=== PATIENT | male | born 1950 | race Caucasian/White ===

== ENCOUNTER → 2020-01-12 | Outpatient (CLI) | payer MEDICARE, OTHER, SELFPAY ==
--- NOTE | 2020-01-12 08:01 | RAD_ITS ---
STUDY: X-RAY - ESOPHAGUS (BARIUM SWALLOW) WITH FLUOROSCOPY REASON FOR EXAM: Male, 69 years old. Dysphagia w/carbonated, meat, cheese, bread -- upper sternum area -- recently acute -- heartburn and fatty liver. No history of cancer. TECHNIQUE: 25 view(s) of the esophagus were obtained following swallowing of barium. FLUOROSCOPY TIME (if supplied): (0:40) minutes/seconds COMPARISON: None. FINDINGS: There is no demonstrated esophageal foreign body. There is no demonstrated stricture or mucosal abnormality. Normal gastroesophageal junction, without a demonstrated hiatal hernia. The patient ingested a 12 mm tablet of barium without any difficulty. Incidental note is made of a 4.6 mm diverticulum in the third portion of the duodenum. There is atherosclerotic tortuosity of the aortic arch and descending thoracic aorta. Normal visualized pulmonary parenchyma. There are degenerative changes of the visualized thoracic spine. RAD/Esophagus Single Contrast IMPRESSION: Normal plain film x-ray examination (barium swallow) of the esophagus. Incidental note is made of a 4.6 mm diverticulum in the third portion of the duodenum. Electronically Signed: Cooper Clancy, at 9:01 EDT , Service support ,
== END | disposition home or self-care (01) ==
LOC: RAD 07:58
PROVIDERS: PCP Family Medicine; Referring Provider Family Medicine; Visit Provider Family Medicine
DX: R13.10 Dysphagia, unspecified (principal)
CPT/HCPCS: 74220

== ENCOUNTER → 2020-07-25 07:45 | Outpatient (CLI) | payer MEDICARE, OTHER, SELFPAY ==
--- NOTE | 2020-07-25 08:00 | CT_ITS ---
STUDY: LOW DOSE CT LUNG CANCER SCREENING REASON FOR EXAM: Male, 69 years old. SMOKING SINCE 1968 1 PACK A DAY. WEIGHT LOSS AND LOSS OF APPETITE AND FATIGUE RADIATION DOSAGE (If Supplied By Facility): CTDIvol = ( 3.02 ) mGy, DLP = ( 110.61 ) mGycm TECHNIQUE: No contrast was administered. Low dose technique was utilized (average mAS-38 and kVp 120). 1.25 mm axial source images with a slice interval of 1.25-mm were reconstructed in lung windows. 2.5 mm axial source images with a slice interval of 2.5-mm were reconstructed in lung windows. 5.0 mm axial source images with a slice interval of 5.0-mm were reconstructed in soft tissue windows. Nodule measured using lung windows on PACS and/or independent workstation with automated measurement of minimum and maximum diameter. Nodule measurement reported as average diameter rounded to the nearest whole number. Growth is defined as an increase ins size of greater than 1.5 mm. COMPARISON: None. NODULES: No suspicious nodules are seen. Emphysema: Hyperinflation. Mild emphysematous changes. Small bulla are seen in the upper lobes. Mild degree of scarring at the lung bases as well as in the lingular segment of the left upper lobe. Endobronchial lesion: Aorta: Atherosclerotic plaque of the aortic arch and descending thoracic aorta. Coronary arteries: Coronary artery calcification. Mediastinal nodes: Benign appearing mediastinal lymph nodes. Other chest and abdominal findings: Degenerative changes of the lumbar spine. CT/Low Dose CT Lung Screening IMPRESSION: Lung-RADS category 2 - Continue annual screening with LDCT in 12 months. IMPORTANT NOTES FOR USE: ACR Lung-RADS Version 1.0 Assessment Categories Release Date: February 19, 2014 Category: Coded 0-4 bases on nodule(s) with highest degree of suspicion. Negative screen is defined as categories 1 and 2; a positive screen is defined as categories 3 and 4. Category 3 and 4A nodules that are unchanged on interval CT should be coded as category 2, and individuals returned to screening in 12 months. Category 4X: Category 3 or 4 nodules with additional imaging findings that increase the suspicion of lung cancer, such as spiculation, GGN that doubles in size in 1 year, enlarged lymph notes, etc. Category Modifiers: S (significant finding unrelated to lung cancer) and C (prior history of treated lung cancer) may be added to the 0-4 Lung-RADS Electronically Signed: Cooper Clancy, at 8:33 EDT , Service support ,
== END ==
PROVIDERS: PCP Family Medicine; Referring Provider Nurse Practitioner Primary Care; Visit Provider Nurse Practitioner Primary Care
DX: F17.210 Nicotine dependence, cigarettes, uncomplicated (principal)
CPT/HCPCS: G0297

== ENCOUNTER 2020-09-04 08:34 | Inpatient (IN) | payer MEDICARE, OTHER, SELFPAY ==
[2020-09-04 08:35] VITALS: BP 154/91; PULSE 115; RESP 17; TEMP 36.2; O2SAT 95; BMI 25.4
[2020-09-04 08:44] VITALS: BP 154/91; PULSE 115; RESP 17; TEMP 36.2; O2SAT 95
[2020-09-04] MEDS: Ondansetron 4 MG/2 ML Vial IV ×2 (08:56→14:20)
[2020-09-04] MEDS: Ketorolac 15 MG/ML Vial IV ×3 (08:57→21:37)
[2020-09-04] MEDS: HYDROmorphone 1 MG/ML Syringe IV ×3 (08:57→19:34)
[2020-09-04] MEDS: 0.9% Normal Saline 1,000 ML 150 ML IV (09:00)
[2020-09-04 09:15] LABS: Mucous, Urine 0 SEEN /hpf (<or=2+); Squamous Epithelial Cells - UA 0 SEEN /hpf (0-5); White Blood Cells 0 SEEN /hpf (0-5)
[2020-09-04 09:24] LABS: Color, Urine Yellow (Yellow); Glucose, Dipstick 1000 mg/dl (Normal); Ketone-Dipstick Negative (Negative); Leukocyte Esterase-Dipstick Negative /ul (Negative); Nitrite-Dipstick Negative (Negative); Occult Blood-Urine 250 /ul (Negative); Protein-Dipstick 15 mg/dl (Negative); Urine Bilirubin Dipstick Negative (Negative); Urine Clarity Sl. Cloudy (Clear); Urine Urobilinogen Normal (Normal)
--- NOTE | 2020-09-04 09:27 | NURSING ---
FAXED RELEASE OF INFO FOR FILIBERTO PIMENTEL ON CHART FROM THIS [facility]
[2020-09-04 09:33] LABS: Absolute Lymphocyte Count 3.33 X10^3/uL (0.83-4.51); Absolute Neutrophil Count 6.9 X10^3/uL (2.0-7.7); Basophil# 0.08 X10^3/uL; Basophil% 0.7 % (0-1); Eosinophil# 0.33 X10^3/uL; Eosinophils% 2.9 % (0-5); Hematocrit 46.1 % (40-54); Hemoglobin 15.1 g/dL (13.0-16.5); Lymphocyte # 3.33 X10^3/ul (4.0); Lymphocyte % 29.2 % (19-41); Mean Corp Hgb Conc 32.8 g/dL (32-36); Mean Corpuscular Hgb 30.8 pg (27.0-32.0); Mean Corpuscular Volume 94.1 fL (80-94); Monocyte# 0.78 X10^3/uL; Monocyte% 6.8 % (0-10); NRBC Flagged by Analyzer 0 % (0-5); Neutrophil # 6.86 X10^3/uL (2.7-7.7); Neutrophil % 60.1 % (47-70); Platelet Count 200 K/mm3 (150-450); RBC Distribution Width CV 13.8 % (11.6-14.6); RBC Distribution Width SD 47.5 fl (35.1-43.9); White Blood Count 11.4 K/mm3 (4.4-11.0)
[2020-09-04 09:33] LABS: Bacteria 1+ /hpf (None Seen); Red Blood Cells-Urine 25-50 SEEN /hpf (0-5)
[2020-09-04 09:35] LABS: Anion Gap 6 (5-15); BUN 19 mg/dL (7-18); BUN/Creat Ratio 14.6 RATIO (10-20); Calcium,Total 8.4 mg/dL (8.5-10.1); Chloride 108 mmol/L (98-107); EST Glomerular Filtration Rate 58 mL/min (>60); Est Glom Filt Rate - Afr Amer 70 mL/min (>60); Estimated Creatinine Clearance 59.69 ml/min; Glucose 190 mg/dL (74-106); Potassium 4.4 mmol/L (3.5-5.1); Sodium Level 139 mmol/L (136-145)
--- NOTE | 2020-09-04 09:35 | ED.DCSUM_ITS ---
- ER Visit Summary Date of Service: 09/04/20 Chief Complaint: [Left flank pain] History of Present Illness: The patient is a 69 M [presents to the emergency department complaint of pain in his left flank that started initially around 11:30 PM last evening. Patient states that he went to [facility] around 1 AM and was diagnosed with a kidney stone on the left side that was near the bladder and it was felt by the ED physician that patient would pass the stone. Patient was discharged home however he started to experience waxing and waning of severe pain. Patient is in pain management and chronically takes morphine so he took some morphine but that did not relieve his pain. Patient's had nausea and some dry heaves. He denies any fever. Patient states that he could not void urine this morning and I concern him as well. Patient has history of diabetes, arthritis, and history of kidney stones. Patient rates his pain currently as a 7-8 out of 10.] Physical Examination: [HEENT-PERRLA, EOMI. Cranial nerves II through XII grossly intact. TMs clear. Mucous membranes moist. No adenopathy. Cardiovascular-regular rate and rhythm without murmur or ectopy Lungs-clear to auscultation, chest wall stable without crepitus or subcu emphysema Abdomen-normoactive bowel sounds, soft. Patient has tenderness palpation over left lower quadrant some mild CVA tenderness on the left. No rebound, rigidity, or peritoneal signs. Extremities-intact ?4, normal range of motion, normal pulses, atraumatic] Test Results: [Urinalysis obtained showed red cells without signs of infection.] Emergency Department Course and Treatment: [IV line established. Patient was given Toradol, Zofran, and Dilaudid IV.] Treatment Plan: [Admit for pain control] Disposition: [Admit] Impression: [Kidney stone with colic Intractable pain] This note was generated with Dr. TATTOFF dictation software. It may contain incorrect words, spelling, and punctuation that were not noted in review of the chart prior to signing ED Disposition - Plan for ED Patient: Referrals: Jennifer Lobo DO [Primary Care Provider] -
--- NOTE | 2020-09-04 10:15 | NURSING ---
DR BRADY FOR DR KAPLAN
--- NOTE | 2020-09-04 10:16 | HP.PCM_ITS ---
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 Diabetes mellitus complication status: with other specified complication Qualified Code(s): E11.69 - Type 2 diabetes mellitus with other specified complication (4) Tobacco use Status: Chronic (5) CKD (chronic kidney disease), stage III Status: Chronic Qualifiers: Chronic kidney disease stage 3 subtype: unspecified whether 3a or 3b Qualified Code(s): N18.30 - Chronic kidney disease, stage 3 unspecified History of Present Illness Date of Admission: 09/04/20 Chief Complaint: L intractable flank pain The patient is a 69 y/o M w/ PMHx: CKD stage III, Prior Hx Nephrolithiasis, Diabetes mellitus type II, Chronic back pain on chronic pain regimen with routine injections per pain management who presents to the [facility] ED on 09/04/20 with history of onset significant left-sided flank pain, not improving prompting outside hospital ED evaluation at approximately 1 AM with unremarkable labs and CT noting a left-sided UPJ 4 mm stone at [facility] with discharge to home with self administration of his chronic pain regimen without significant improvement prompting return for evaluation at [facility]. Patient notes it has been a many years since he had similar presentation and at that time did require intervention x2. Pain was initially at onset 10 out of 10 with associated fatigue, nausea, malaise with no emesis which she noted started when he had been up to use the restroom and was urinating. He notes pain currently improved following Dilaudid, 2-3 out of 10 but primarily with palpation of the CVA region. Work-up in the ED included T 97.2, heart rate 115, BP 154/91, respiratory rate 17, 95% on room air, CBC with WC 11.4, hemoglobin 15.1, platelet 200 without marked shift, BMP with chloride 108, BUN/creatinine 19/1.30, glucose 190, urinalysis with specific gravity 1.020, protein fifteen, glucose 1000, occult blood 250, RBC 25-50, no urine WBCs, 1+ urine bacteria. In the ED patient ministered Zofran, Toradol, Dilaudid, normal saline. Past Medical History Past Medical History (Chronic Problems): Chronic Problems Chronic pain syndrome (Chronic) CKD (chronic kidney disease), stage III (Chronic) Diabetes mellitus (Chronic) Tobacco use (Chronic) Allergies acetaminophen [From Vicodin] Allergy (Verified 09/04/20 08:35) Rash hydrocodone [From Vicodin] Allergy (Verified 09/04/20 08:35) Rash celecoxib [From Celebrex] Adverse Reaction (Verified 09/04/20 08:35) Unknown Home Medications: Ambulatory Orders Medication Instructions Recorded Alfuzosin HCl [Alfuzosin HCl ER] 10 mg PO DAILY 08/05/17 Gabapentin [Neurontin] 300 mg PO BIDCM 08/05/17 Glimepiride [Amaryl] 4 mg PO DAILY 08/05/17 Meloxicam [Mobic] 15 mg PO DAILY 08/05/17 Ergocalciferol [Vitamin D] 50,000 unit PO .Wednesday09/04/20 Fish Oil/Dha/Epa [Fish Oil 1,200 1 cap PO DAILY 09/04/20 mg Fish Oil] Morphine Sulfate [Morphine Sulfate 15 mg PO TID PRN PRN 09/04/20 ER] hydrOXYzine pamoate capsule 25 - 50 mg PO QHS PRN 09/04/20 [Vistaril pamoate capsule] Surgical History: - - Right rotator cuff surgery, intervention for kidney stones x2, tonsillectomy. Psychiatric History: No pertinent psych hx Lives: Spouse/ Significant Other Smoking Status: Current every day smoker - Patient with ongoing 1 pack/day cigarette tobacco usage starting March 1989 although notes he is currently attempting to quit and [facility]zeng[facility]. Tobacco Use: Cigarettes Alcohol: None Drugs: None - *Family History Maternal History Items: Dementia, - - Patient notes a maternal family history of Alzheimer's dementia. Paternal History Items: - - Patient notes that his father left when he was 4 years old therefore is unsure of any of his medical history. Review of Systems Constitutional: Reports: Anorexia, Malaise, Weakness, Fatigue. Denies: Chills, Fever, Weight Change HEENT: Denies: Head Aches, Sinus Congestion, Sinus Drainage Cardiovascular: Reports: - - Left lateral CVA tenderness.. Denies: Chest Pain, Palpitations Respiratory: Denies: Cough, Shortness of breath at rest, Sputum production Gastrointestinal: Reports: Abdominal Pain, Nausea. Denies: Vomiting Genitourinary: Reports: - - Lateral CVA tenderness, onset following urination in AM.. Denies: Dysuria Musculoskeletal: Reports: Back Pain, Joint Pain. Denies: Joint Tenderness Skin: Denies: Rash, Wounds Neurological: Denies: Numbness, Tingling, Focal weakness Psychiatric: Denies: Anxiety, Depression, Homicidal Ideations, Suicidal Ideations Hematologic/ Lymphatic: Denies: Easy Bruising, Easy Bleeding VTE Information - Inpt Only VTE Present on Admission: No VTE Mechan Device Prophylaxis: SCD's VTE Pharm Prophylaxis ordered?: No Reason prophylaxis not ordered:: Medical Contraindication Patient Problems: Active and Suspected Problems Nephrolithiasis (Acute) Subjective: Patient seated upright in the ED bed, initially laying down, notes pain significantly improved with recent Dilaudid administration. Objective: Physical Examination: General: awake, alert, oriented x 3 and cooperative, seated upright in the ED bed, currently notes pain is improved, was 10 out of 10, currently 2 out of 10. Skin: normal color, turgor, no icterus, cyanosis. HEENT: AT/NC, EOMI, PERRLA, dry MM, no carotid bruits or JVD noted. Lungs: CTA bilaterally, moderate effort, moderate decrease BL bases, no rales, ronchi or wheezing. Heart: Tachycardic with regular rhythm; no gallop, rub audible. Abdomen: soft, no abdominal tenderness however significant left-sided CVA d iscomfort with palpation but improved he notes since initial presentation, ND, normal BS, no HSM. Extremities: no cyanosis, clubbing, or edema. Neurological: patient awake, alert, oriented x 3; cognitive function intact; pupils equally reactive to light and accomodation; cranial nerves II-XII grossly normal, moving all 4 extremities, no focal deficits, strength moderately global decrease secondary to acute presentation. Psychiatric: affect appears fatigued, notes more comfortable currently, no acute evidence of depressive or anxiety feelings. - Physical Exam Vitals/I&O's: Vital Signs Temp Pulse Resp BP Pulse Ox 97.2 F L 115 H 17 154/91 H 95 09/04/20 08:44 09/04/20 08:44 09/04/20 08:44 09/04/20 08:44 09/04/20 08:44 Oxygen Delivery Method Room Air Weight: 188 lb 0.869 oz Body Mass Index (BMI) 25.4 Laboratory Results 09/04/20 08:45: WBC 11.4 H, RBC 4.90, Hgb 15.1, Hct 46.1, MCV 94.1 H, MCH 30.8, MCHC 32.8, RDW Std Deviation 47.5 H, RDW Coeff of Dane 13.8, Plt Count 200, MPV 10.0, Immature Gran % (Auto) 0.300, Neut % (Auto) 60.1, Lymph % (Auto) 29.2, [place] % (Auto) 6.8, Eos % (Auto) 2.9, Baso % (Auto) 0.7, Absolute Neuts (auto) 6.9, Absolute Lymphs (auto) 3.33, Nucleated RBC % 0 09/04/20 08:45: Sodium 139, Potassium 4.4, Chloride 108 H, Carbon Dioxide 25.0, Anion Gap 6, BUN 19 H, Creatinine 1.30, Estim Creat Clear Calc 59.69, Est GFR (MDRD) Af Amer 70, Est GFR (MDRD) Non-Af 58 L, BUN/Creatinine Ratio 14.6, Glucose 190 H, Calcium 8.4 L 09/04/20 09:09: Urine Color Yellow, Urine Clarity Sl. Cloudy, Urine pH 5.0, Ur Specific [place] 1.020, Urine Protein 15 H, Urine Glucose (UA) 1000 H, Urine Ketones Negative, Urine Occult Blood 250 H, Urine Nitrite Negative, Urine Bilirubin Negative, Urine Urobilinogen Normal, Ur Leukocyte Esterase Negative, Urine RBC 25-50 SEEN, Urine WBC 0 SEEN, Ur Squamous Epith Cells 0 SEEN, Urine Bacteria 1+, Urine Mucus 0 SEEN Current Medications Sodium Chloride () 1,000 mls @ 150 mls/hr IV .[id number] [facility] Last Admin: 09/04/20 09:00 Dose: 150 mls/hr Documented by: Assessment/Plan All Active Problems Nephrolithiasis (Acute) The patient is a 69 y/o M w/ PMHx: CKD stage III, Prior Hx Nephrolithiasis, Diabetes mellitus type II, Chronic back pain on chronic pain regimen with routine injections per pain management who presents to the [facility] ED on 09/04/20 with history of onset significant left-sided flank pain, not improving prompting outside hospital ED evaluation at approximately 1 AM with unremarkable labs and CT noting a left-sided UPJ 4 mm stone at [facility] with discharge to home with self administration of his chronic pain regimen without significant improvement. 1. Acute Flank Pain, secondary to Acute Nephrolithiasis: Urinalysis not marked appearing aside hematuria but no obvious UTI, CBC with no market WC elevation or left shift and no marked anemia, outside hospital CT with left-sided 4 mm UPJ. Given pain intractable, will admit to [facility], maintain on aggressive hydration, continue to strain urine, maintain on IV scheduled Toradol, increase patient home gabapentin, continue patient chronic pain regimen with oral and IV breakthrough narcotic therapy, PRN anti-emetics, monitor I&Os. Given size of calculus suspect will likely pass, thus will hold on any urology involvement. If not clinically improving may consult urology. 2. Diabetes mellitus type II: Hold oral home regimen, allow ADA diet, accu checks w/ ISS. 3. Chronic Kidney Disease Stage III: Admission BUN/Cr 19/1.30, baseline renal function suspect similar, most recently noted creatinine 1.0, repeat BMP in AM. 4. Chronic pain syndrome: Patient with chronic back pain with chronic narcotic therapy and injections per pain management, complicates presentation, will continue patient morphine IR although schedule this. We will have overlapping oral and IV regimen. As noted previously increasing gabapentin regimen given acute presentation #1. 5. Tobacco Abuse: Encouraged cessation, inpatient consultation per RT, NR if desired. 6. DVT prophylaxis: SCDs, hold any chemoprophylaxis temporarily given hematuria and acute presentation, if does not pass me consider urology intervention. OBSV E&M: [id number] Initial observation care L3
--- NOTE | 2020-09-04 10:27 | NURSING ---
MED SURG OBS [place] WITH HEATH BRADY
[2020-09-04 10:49] VITALS: BP 129/77; PULSE 71; RESP 15; TEMP 36.4; O2SAT 98
[2020-09-04 11:53] VITALS: BMI 25.6
[2020-09-04 11:54] VITALS: BP 152/92; PULSE 91; RESP 18; TEMP 36.4; O2SAT 99
[2020-09-04] MEDS: 0.9% Normal Saline 1,000 ML 125 ML IV ×2 (12:28→19:34)
[2020-09-04 13:25] LABS: Bedside Glucose 129 mg/dL (70-110)
[2020-09-04] MEDS: morphine SR 15 MG Tablet PO ×2 (14:10→21:36)
[2020-09-04] MEDS: 0.9% Saline Lock 10 ML Syringe IV ×2 (14:14→14:20)
[2020-09-04] MEDS: Gabapentin 300 MG Capsule PO ×2 (15:38→21:37)
[2020-09-04 17:15] LABS: Bedside Glucose 208 mg/dL (70-110)
[2020-09-04] MEDS: Insulin Lispro 100 UNIT/ML INSULN.PEN SC (17:45)
[2020-09-04 17:54] VITALS: BP 138/72; PULSE 78; RESP 18; TEMP 36.6; O2SAT 98
[2020-09-04] MEDS: Famotidine 20 MG Tablet PO (21:37)
[2020-09-04 21:42] VITALS: BP 132/64; PULSE 80; RESP 16; TEMP 36.6; O2SAT 97
[2020-09-04 22:01] LABS: Bedside Glucose 141 mg/dL (70-110)
[2020-09-05] MEDS: HYDROmorphone 1 MG/ML Syringe IV ×5 (03:44→22:58)
[2020-09-05] MEDS: 0.9% Normal Saline 1,000 ML 125 ML IV ×3 (03:44→20:22)
[2020-09-05 03:45] VITALS: BP 140/73; PULSE 76; RESP 16; TEMP 36.8; O2SAT 95
[2020-09-05 04:16] LABS: Bedside Glucose 99 mg/dL (70-110)
[2020-09-05] MEDS: Ketorolac 15 MG/ML Vial IV ×3 (05:29→22:39)
[2020-09-05] MEDS: Gabapentin 300 MG Capsule PO ×3 (05:29→22:39)
[2020-09-05] MEDS: morphine SR 15 MG Tablet PO ×3 (05:29→22:39)
[2020-09-05] MEDS: Ondansetron 4 MG/2 ML Vial IV (05:33)
[2020-09-05 06:03] LABS: Absolute Lymphocyte Count 3.51 X10^3/uL (0.83-4.51); Absolute Neutrophil Count 4.8 X10^3/uL (2.0-7.7); Basophil# 0.07 X10^3/uL; Basophil% 0.7 % (0-1); Eosinophil# 0.37 X10^3/uL; Eosinophils% 3.9 % (0-5); Hematocrit 42.3 % (40-54); Hemoglobin 13.7 g/dL (13.0-16.5); Lymphocyte # 3.51 X10^3/ul (4.0); Lymphocyte % 36.7 % (19-41); Mean Corp Hgb Conc 32.4 g/dL (32-36); Mean Corpuscular Hgb 30.8 pg (27.0-32.0); Mean Corpuscular Volume 95.1 fL (80-94); Mean Platelet Vol. 9.9 fl (6.2-12.0); Monocyte# 0.78 X10^3/uL; Monocyte% 8.2 % (0-10); NRBC Flagged by Analyzer 0 % (0-5); Neutrophil % 50.2 % (47-70); Platelet Count 171 K/mm3 (150-450); RBC Distribution Width CV 13.8 % (11.6-14.6); RBC Distribution Width SD 48.6 fl (35.1-43.9); Red Blood Count 4.45 M/mm3 (4.6-6.2); White Blood Count 9.6 K/mm3 (4.4-11.0)
[2020-09-05 06:37] LABS: ALB/GLOB Ratio 0.8 RATIO (0.9-2.4); AST(SGOT) 12 U/L (15-37); Alanine Aminotransfer ALT/SGPT 14 U/L (16-61); Alkaline Phosphatase 74 U/L (45-117); Anion Gap 3 (5-15); BUN 15 mg/dL (7-18); BUN/Creat Ratio 14.3 RATIO (10-20); Calcium,Total 8.3 mg/dL (8.5-10.1); Chloride 110 mmol/L (98-107); Creatinine, Serum 1.05 mg/dL (0.70-1.30); EST Glomerular Filtration Rate 74 mL/min (>60); Est Glom Filt Rate - Afr Amer 90 mL/min (>60); Globulin 3.6 g/dL (2.2-4.2); Glucose 128 mg/dL (74-106); Potassium 4.5 mmol/L (3.5-5.1); Protein, Total 6.6 g/dL (6.4-8.2); Sodium Level 140 mmol/L (136-145)
[2020-09-05 06:40] LABS: Bedside Glucose 113 mg/dL (70-110)
--- NOTE | 2020-09-05 07:25 | PN_ITS ---
Patient Problems: Active and Suspected Problems Nephrolithiasis (Acute) Left renal stone (Acute) Subjective: Patient with continued discomfort overnight, improved with pain regimen, however patient noting he is not passed his stone with urine straining and notes that the pain is more distal than it had been prior. Patient continues without any fever or specific dysuria symptoms. Discussed plan of care with patient and given ongoing symptoms, still not passed stone amenable to urology involvement. Urology pending evaluation although patient given repeat film per urology discretion with findings suggestive of ongoing 4.4 mm left mid ureteral calculus with potential OR 09/06/2020. Patient denies fevers, chills, nausea, emesis, chest pain or dyspnea. Objective: Physical Examination: General: awake, alert, oriented x 3 and cooperative, seated upright in the surgical bed, currently pain controlled however notes that had been occasionally worse overnight. Skin: normal color, turgor, no icterus, cyanosis. HEENT: AT/NC, EOMI, PERRLA, MMM. Lungs: CTA bilaterally, moderate effort, moderate decrease BL bases, no rales, ronchi or wheezing. Heart: Proved, regular rate and regular rhythm; no gallop, rub audible. Abdomen: soft, no abdominal tenderness however significant left-sided CVA discomfort with palpation more distal than day prior, nondistended, normal bowel sounds. Extremities: no cyanosis, clubbing, or edema. Neurological: patient awake, alert, oriented x 3; cognitive function intact; pupils equally reactive to light and accomodation; cranial nerves II-XII grossly normal, moving all 4 extremities, no focal deficits, strength being, moderately global decrease secondary to acute presentation. Psychiatric: affect appears less fatigued, comfortable currently, no acute evidence of depressive or anxiety feelings. Vitals/I&O's: Vital Signs Temp Pulse Resp BP Pulse Ox 98.3 F 76 16 140/73 H 95 09/05/20 03:45 09/05/20 03:45 09/05/20 03:45 09/05/20 03:45 09/05/20 03:45 Oxygen Delivery Method Room Air Weight: 188 lb 11.451 oz Body Mass Index (BMI) 25.6 Intake and Output for Last 24 Hours 09/03/20 09/04/20 09/05/20 23:59 23:59 23:59 Intake Total 1706.25 / 1706.25 1000 / 1000 Output Total 1350 / 1350 350 / 350 Balance 356.25 / 356.25 650 / 650 Laboratory Results 09/04/20 08:45: WBC 11.4 H, RBC 4.90, Hgb 15.1, Hct 46.1, MCV 94.1 H, MCH 30.8, MCHC 32.8, RDW Std Deviation 47.5 H, RDW Coeff of Dane 13.8, Plt Count 200, MPV 10.0, Immature Gran % (Auto) 0.300, Neut % (Auto) 60.1, Lymph % (Auto) 29.2, [place] % (Auto) 6.8, Eos % (Auto) 2.9, Baso % (Auto) 0.7, Absolute Neuts (auto) 6.9, Absolute Lymphs (auto) 3.33, Nucleated RBC % 0 09/04/20 08:45: Sodium 139, Potassium 4.4, Chloride 108 H, Carbon Dioxide 25.0, Anion Gap 6, BUN 19 H, Creatinine 1.30, Estim Creat Clear Calc 59.69, Est GFR (MDRD) Af Amer 70, Est GFR (MDRD) Non-Af 58 L, BUN/Creatinine Ratio 14.6, Glucose 190 H, Calcium 8.4 L 09/04/20 09:09: Urine Color Yellow, Urine Clarity Sl. Cloudy, Urine pH 5.0, Ur Specific [place] 1.020, Urine Protein 15 H, Urine Glucose (UA) 1000 H, Urine Ketones Negative, Urine Occult Blood 250 H, Urine Nitrite Negative, Urine Bilirubin Negative, Urine Urobilinogen Normal, Ur Leukocyte Esterase Negative, Urine RBC 25-50 SEEN, Urine WBC 0 SEEN, Ur Squamous Epith Cells 0 SEEN, Urine Bacteria 1+, Urine Mucus 0 SEEN 09/04/20 13:17: POC Glucose 129 H 09/04/20 17:06: POC Glucose 208 H 09/04/20 21:35: POC Glucose 141 H 09/05/20 03:54: POC Glucose 99 09/05/20 05:32: WBC 9.6, RBC 4.45 L, Hgb 13.7, Hct 42.3, MCV 95.1 H, MCH 30.8, MCHC 32.4, RDW Std Deviation 48.6 H, RDW Coeff of Dane 13.8, Plt Count 171, MPV 9.9, Immature Gran % (Auto) 0.300, Neut % (Auto) 50.2, Lymph % (Auto) 36.7, [place] % (Auto) 8.2, Eos % (Auto) 3.9, Baso % (Auto) 0.7, Absolute Neuts (auto) 4.8, Absolute Lymphs (auto) 3.51, Nucleated RBC % 0 09/05/20 05:32: Sodium 140, Potassium 4.5, Chloride 110 H, Carbon Dioxide 27.0, Anion Gap 3 L, BUN 15, Creatinine 1.05, Estim Creat Clear Calc 73.90, Est GFR (MDRD) Af Amer 90, Est GFR (MDRD) Non-Af 74, BUN/Creatinine Ratio 14.3, Glucose 128 H, Calcium 8.3 L, Total Bilirubin 0.50, AST 12 L, ALT 14 L, Alkaline Phosphatase 74, Total Protein 6.6, Albumin 3.0 L, Globulin 3.6, Albumin/Globulin Ratio 0.8 L 09/05/20 06:33: POC Glucose 113 H Current Medications Acetaminophen (Acetaminophen 325 Mg Tablet) 650 mg PO Q6H PRN PRN PRN Reason: Pain Score 1-10/Temp > 100.7 F Al Hydroxide/Mg Hydroxide (Mag Hydrox/Al Hydrox/Simeth 30 Ml Udc) 30 ml PO Q6H PRN PRN PRN Reason: Gastric Burning Albuterol Sulfate (Albuterol 2.5 Mg/3 Ml Vial.Neb.) 2.5 mg INHALATION Q2H PRN PRN PRN Reason: Dyspnea, wheezing Famotidine (Famotidine 20 Mg Tablet) 20 mg PO BID [facility] Last Admin: 09/04/20 21:37 Dose: 20 mg Documented by: Gabapentin (Gabapentin 300 Mg Capsule) 300 mg PO TID [facility] Last Admin: 09/05/20 05:29 Dose: 300 mg Documented by: Guaifenesin (Guaifenesin 10 Ml Udc (200mg/10ml)) 20 ml PO Q4H PRN PRN PRN Reason: COUGH Hydralazine HCl (Hydralazine 20 Mg/Ml Vial) 10 mg IV Q4H PRN PRN PRN Reason: SBP > 160 Hydromorphone HCl (Hydromorphone 1 Mg/Ml Syringe) 1 mg IV Q4H PRN PRN PRN Reason: Pain Score 6-10 Last Admin: 09/05/20 03:44 Dose: 1 mg Documented by: Sodium Chloride () 1,000 mls @ 125 mls/hr IV .Q8H [place] Last Admin: 09/05/20 03:44 Dose: 125 mls/hr Documented by: Sodium Chloride () 250 mls @ 15 mls/hr IV .[id number] PRN PRN Reason: Saline Flush Sodium Chloride () 250 mls @ 15 mls/hr IV .[id number] PRN PRN Reason: Additional IVPB Infusion Influenza Virus Vaccine Quadrival (Influenza Vaccine (6mos+)/Pf 0.5 Ml Syringe) 0.5 ml IM .ONCE ONE Stop: 09/05/20 10:01 Insulin Human Lispro (Insulin Lispro 100 Unit/Ml Insuln.Pen) 0 unit [facility]; Protocol Last Admin: 09/05/20 06:37 Dose: Not Given Documented by: Ketorolac Tromethamine (Ketorolac 15 Mg/Ml Vial) 15 mg IV Q8 [facility] Stop: 09/05/20 22:01 Last Admin: 09/05/20 05:29 Dose: 15 mg Documented by: Magnesium Hydroxide (Magnesium Hydroxide 30 Ml Udc) 30 ml PO DAILY PRN PRN PRN Reason: Constipation Melatonin (Melatonin 3 Mg Tablet) 3 mg PO QHS PRN PRN PRN Reason: INSOMNIA Morphine Sulfate (Morphine Sr 15 Mg Tablet) 15 mg PO TID [facility] Last Admin: 09/05/20 05:29 Dose: 15 mg Documented by: Ondansetron HCl (Ondansetron 4 Mg/2 Ml Vial) 4 mg IV Q8H PRN PRN PRN Reason: NAUSEA/VOMITING Last Admin: 09/05/20 05:33 Dose: 4 mg Documented by: Oxycodone HCl (Oxycodone 5 Mg Tablet) 10 mg PO Q4H PRN PRN PRN Reason: Pain Score 4-5 Prochlorperazine Edisylate (Prochlorperazine 10 Mg/2 Ml Vial) 5 mg IV Q4H PRN PRN PRN Reason: Breakthrough nausea/vomiting Psyllium Hydrophilic Mucilloid (Psyllium 1 Packet) 1 packet PO DAILY PRN PRN PRN Reason: Constipation Senna/Docusate Sodium (Senna/Docusate Sodium 1 Tablet) 2 tablet PO BID PRN PRN PRN Reason: Constipation Sodium Chloride (0.9% Saline Lock 10 Ml Syringe) 10 - 40 ml IV UD PRN PRN Reason: SALINE FLUSH Last Admin: 09/04/20 14:20 Dose: 10 ml Documented by: Tamsulosin HCl (Tamsulosin Hcl 0.4 Mg Capsule) 0.4 mg PO DAILY@1730 [place] Throat Lozenges (Benzocaine/Menthol 1 Lozenge) 1 lozenge MUCOUS MEM Q2H PRN PRN PRN Reason: SORE THROAT STROKE Vital Signs/Narrative: Vital Signs Temp Pulse Resp BP Pulse Ox 09/05/20 03:45 98.3 F 76 16 140/73 H 95 Medical Necessity - Tobacco Use Smoking Status: Current every day smoker - Patient with ongoing 1 pack/day cigarette tobacco usage starting March 1989 although notes he is currently attempting to quit and uses lozenges from the [place]. Tobacco Use: Cigarettes Assessment/Plan All Active Problems Nephrolithiasis (Acute) Left renal stone (Acute) The patient is a 69 y/o M w/ PMHx: CKD stage III, Prior Hx Nephrolithiasis, Diabetes mellitus type II, Chronic back pain on chronic pain regimen with routine injections per pain management who presents to the [facility] ED on 09/04/20 with history of onset significant left-sided flank pain, not improving prompting outside hospital ED evaluation at approximately 1 AM with unremarkable labs and CT noting a left-sided UPJ 4 mm stone at [facility] with discharge to home with self administration of his chronic pain regimen without significant improvement. 1. Acute Flank Pain, secondary to Acute Nephrolithiasis: Urinalysis not marked appearing aside hematuria but no obvious UTI, CBC with no market WC elevation or left shift and no marked anemia, outside hospital CT with left-sided 4 mm UPJ. Given pain intractable, patient mated to MS, maintained on aggressive hydration, continued to strain urine without any evident stone, maintained on IV scheduled Toradol, increased patient home gabapentin, continue patient chronic pain regimen with oral and IV breakthrough narcotic therapy which will be increased given ongoing episodes of severe pain, urology consulted given no stone noted in urine yet and suspect not passed, KUB obtained with noted 4.4 mm left mid ureteral calculus, currently on OR schedule 09/06/2020 with urology, PRN anti- emetics, monitor I&Os. 2. Diabetes mellitus type II: Hold oral home regimen, allow ADA diet, accu checks w/ ISS. 3. Chronic Kidney Disease Stage III: Admission BUN/Cr 19/1.30, baseline renal function suspect similar, most recently noted creatinine 1.0, 09/05/2020 BUN/creatinine 15/1.05. 4. Chronic pain syndrome: Patient with chronic back pain with chronic narcotic therapy and injections per pain management, complicates presentation, will continue patient morphine IR although schedule this. Continue overlapping oral and IV regimen, 09/05/2020 planned increase of Dilaudid to every 3 given ongoing intermittent more severe pain episodes. As noted previously increasing gabapentin regimen given acute presentation #1. 5. Tobacco Abuse: Encouraged cessation, inpatient consultation per RT, NR if desired. 6. DVT prophylaxis: SCDs, hold any chemoprophylaxis temporarily given hematuria and acute presentation as well as planned possible OR 09/06/2020. Inpatient E&M: 91329 Subs Hosp L3
--- NOTE | 2020-09-05 08:21 | PCM.CONS.U ---
Problem List (1) Left renal stone Status: Acute Reason for Consult Date of Consultation: 09/05/20 Reason for Consultation: stone History of Present Illness: The patient is a 69 year old male who was in [facility] with stone, discharged from ER, admitted to [facility] with a small 4mm proximal stone on CT scan, has not passed it yet, I was consulted to see patient. Past Medical History Past Medical History (Chronic Problems): Chronic Problems Chronic pain syndrome (Chronic) CKD (chronic kidney disease), stage III (Chronic) Diabetes mellitus (Chronic) Tobacco use (Chronic) Allergies acetaminophen [From Vicodin] Allergy (Verified 09/04/20 08:35) Rash hydrocodone [From Vicodin] Allergy (Verified 09/04/20 08:35) Rash celecoxib [From Celebrex] Adverse Reaction (Verified 09/04/20 12:16) goofy Home Medications: Ambulatory Orders Medication Instructions Recorded Alfuzosin HCl [Alfuzosin HCl ER] 10 mg PO DAILY 08/05/17 Gabapentin [Neurontin] 300 mg PO BIDCM 08/05/17 Glimepiride [Amaryl] 4 mg PO DAILY 08/05/17 Meloxicam [Mobic] 15 mg PO DAILY 08/05/17 Ergocalciferol [Vitamin D] 50,000 unit PO .Wednesday09/04/20 Fish Oil/Dha/Epa [Fish Oil 1,200 1 cap PO DAILY 09/04/20 mg Fish Oil] Morphine Sulfate [Morphine Sulfate 15 mg PO TID PRN PRN 09/04/20 ER] hydrOXYzine pamoate capsule 25 - 50 mg PO QHS PRN 09/04/20 [Vistaril pamoate capsule] Surgical History: - - Right rotator cuff surgery, intervention for kidney stones x2, tonsillectomy. Psychiatric History: No pertinent psych hx Lives: Spouse/ Significant Other Smoking Status: Current every day smoker - Patient with ongoing 1 pack/day cigarette tobacco usage starting March 1989 although notes he is currently attempting to quit and [facility]. Tobacco Use: Cigarettes Alcohol: None Drugs: None - *Family History Maternal History Items: Dementia, - - Patient notes a maternal family history of Alzheimer's dementia. Paternal History Items: - - Patient notes that his father left when he was 4 years old therefore is unsure of any of his medical history. Review of Systems Constitutional: Denies: Chills, Fever, Weight Change HEENT: Denies: Head Aches, Sinus Congestion, Sinus Drainage Cardiovascular: Denies: Chest Pain, Palpitations Respiratory: Denies: Cough, Shortness of breath at rest, Sputum production Gastrointestinal: Denies: Abdominal Pain, Nausea, Vomiting Genitourinary: Denies: Dysuria Musculoskeletal: Denies: Joint Pain, Joint Tenderness Skin: Denies: Rash, Wounds Neurological: Denies: Numbness, Tingling, Focal weakness Psychiatric: Denies: Anxiety, Depression, Homicidal Ideations, Suicidal Ideations Hematologic/ Lymphatic: Denies: Easy Bruising, Easy Bleeding Physical Exam - Physical Exam Vital Signs Temp 98.3 F 09/05/20 03:45 Pulse 76 09/05/20 03:45 Resp 16 09/05/20 03:45 BP 140/73 H 09/05/20 03:45 Pulse Ox 95 09/05/20 03:45 Intake & Output 09/03/20 09/04/20 09/05/20 23:59 23:59 23:59 Intake Total 1706.25 / 1706.25 1000 / 1000 Output Total 1350 / 1350 350 / 350 Balance 356.25 / 356.25 650 / 650 Weight: 85.6 kg Intake: Oral 300 / 300 Intake, IV Amount 1406.25 / 1406.25 1000 / 1000 0.9% Normal Saline 1,000 ML @ 881.25 / 881.25 1000 / 1000 125 mls/hr IV .Q8H [place] Rx#: [id number] 0.9% Normal Saline 1,000 ML @ 525 / 525 150 mls/hr IV .[id number] [place] Rx#: [id number] Output: Urine 1350 / 1350 350 / 350 General: Alert, Oriented x3 HEENT: Atraumatic Oral: Moist Mucosa Neck: Supple Lungs: Normal air movement Cardiovascular: Regular rate Laboratory Tests Past 24 Hrs 09/04/20 09/04/20 09/04/20 08:45 08:45 09:09 WBC 11.4 H RBC 4.90 Hgb 15.1 Hct 46.1 MCV 94.1 H MCH 30.8 MCHC 32.8 RDW Std Deviation 47.5 H RDW Coeff of Dane 13.8 Plt Count 200 MPV 10.0 Immature Gran % (Auto) 0.300 Neut % (Auto) 60.1 Lymph % (Auto) 29.2 [place] % (Auto) 6.8 Eos % (Auto) 2.9 Baso % (Auto) 0.7 Absolute Neuts (auto) 6.9 Absolute Lymphs (auto) 3.33 Nucleated RBC % 0 Sodium 139 Potassium 4.4 Chloride 108 H Carbon Dioxide 25.0 Anion Gap 6 BUN 19 H Creatinine 1.30 Estim Creat Clear Calc 59.69 Est GFR (MDRD) Af Amer 70 Est GFR (MDRD) Non-Af 58 L BUN/Creatinine Ratio 14.6 Glucose 190 H Calcium 8.4 L Total Bilirubin AST ALT Alkaline Phosphatase Total Protein Albumin Globulin Albumin/Globulin Ratio Urine Color Yellow Urine Clarity Sl. Cloudy Urine pH 5.0 Ur Specific [place] 1.020 Urine Protein 15 H Urine Glucose (UA) 1000 H Urine Ketones Negative Urine Occult Blood 250 H Urine Nitrite Negative Urine Bilirubin Negative Urine Urobilinogen Normal Ur Leukocyte Esterase Negative Urine RBC 25-50 SEEN Urine WBC 0 SEEN Ur Squamous Epith Cells 0 SEEN Urine Bacteria 1+ Urine Mucus 0 SEEN 09/05/20 09/05/20 05:32 05:32 WBC 9.6 RBC 4.45 L Hgb 13.7 Hct 42.3 MCV 95.1 H MCH 30.8 MCHC 32.4 RDW Std Deviation 48.6 H RDW Coeff of Dane 13.8 Plt Count 171 MPV 9.9 Immature Gran % (Auto) 0.300 Neut % (Auto) 50.2 Lymph % (Auto) 36.7 [place] % (Auto) 8.2 Eos % (Auto) 3.9 Baso % (Auto) 0.7 Absolute Neuts (auto) 4.8 Absolute Lymphs (auto) 3.51 Nucleated RBC % 0 Sodium 140 Potassium 4.5 Chloride 110 H Carbon Dioxide 27.0 Anion Gap 3 L BUN 15 Creatinine 1.05 Estim Creat Clear Calc 73.90 Est GFR (MDRD) Af Amer 90 Est GFR (MDRD) Non-Af 74 BUN/Creatinine Ratio 14.3 Glucose 128 H Calcium 8.3 L Total Bilirubin 0.50 AST 12 L ALT 14 L Alkaline Phosphatase 74 Total Protein 6.6 Albumin 3.0 L Globulin 3.6 Albumin/Globulin Ratio 0.8 L Urine Color Urine Clarity Urine pH Ur Specific [place] Urine Protein Urine Glucose (UA) Urine Ketones Urine Occult Blood Urine Nitrite Urine Bilirubin Urine Urobilinogen Ur Leukocyte Esterase Urine RBC Urine WBC Ur Squamous Epith Cells Urine Bacteria Urine Mucus Assessment/Plan All Active Problems Nephrolithiasis (Acute) Left renal stone (Acute) 69 yo male with left kidney stone will do KUB today check location if good and has not passed it plan for ESWL possible stent tomorrow npo a midnight.
--- NOTE | 2020-09-05 08:45 | RAD_ITS ---
STUDY: X-RAY - ABDOMEN/PELVIS REASON FOR EXAM: Male, 69 years old. LEFT SIDED KIDNEY STONE, FOLLOW UP TECHNIQUE: Single AP view of the abdomen / pelvis. COMPARISON: None. FINDINGS: Normal visualized lung bases. There is an abundance of fecal material throughout the colon. There is a 4.4 mm rounded calcification overlying the transverse process of the L3 vertebra on the left side suggestive of a mid left ureteral calculus. Normal soft tissue structures. Normal visualized osseous structures. RAD/Abdomen Single View IMPRESSION: Findings suggestive of a 4.4 mm left midureteral calculus. Electronically Signed: Cooper Clancy, at 10:32 EST , Service support ,
[2020-09-05] MEDS: Famotidine 20 MG Tablet PO ×2 (08:59→22:39)
[2020-09-05 09:00] VITALS: BP 160/82; PULSE 84; RESP 18; TEMP 36.5; O2SAT 99
[2020-09-05] MEDS: oxyCODONE 5 MG Tablet 10 MG PO ×2 (10:24→20:27)
[2020-09-05 11:00] LABS: Bedside Glucose 144 mg/dL (70-110)
[2020-09-05] MEDS: proCHLORPERazine 10 MG/2 ML Vial 5 MG IV (14:20)
[2020-09-05 14:25] VITALS: BP 148/85; PULSE 78; RESP 18; TEMP 36.7; O2SAT 100
[2020-09-05 16:51] LABS: Bedside Glucose 116 mg/dL (70-110)
[2020-09-05] MEDS: Tamsulosin HCl 0.4 MG Capsule PO (17:51)
[2020-09-05 20:22] VITALS: BP 136/83; PULSE 98; RESP 18; TEMP 36.9; O2SAT 98
[2020-09-05 20:30] VITALS: BMI 25.5
[2020-09-05] MEDS: Insulin Lispro 100 UNIT/ML INSULN.PEN SC (22:44)
[2020-09-05 22:55] LABS: Bedside Glucose 150 mg/dL (70-110)
[2020-09-06] VITALS (10 sets, daily range): BP systolic 114–147; BP diastolic 66–83; PULSE 70–106; RESP 16–18; TEMP 36.2–37.1; O2SAT 92–98; BMI 25.5; BMI 25.6
[2020-09-06] MEDS: 0.9% Normal Saline 1,000 ML 125 ML IV (04:00)
[2020-09-06] MEDS: oxyCODONE 5 MG Tablet 10 MG PO ×2 (04:05→10:52)
--- NOTE | 2020-09-06 06:00 | EKG12_ITS ---
Test Reason : PREOP Blood Pressure : / mmHG Vent. Rate : 091 BPM Atrial Rate : 091 BPM P-R Int : 146 ms QRS Dur : 076 ms QT Int : 360 ms P-R-T Axes : 059 -01 028 degrees QTc Int : 442 ms Normal sinus rhythm Normal ECG Confirmed by RAMOS HUNTER, EL ([id number]), subeditor SHERIDAN BHAT ([id number]) on 09/09/2020 1:30:51 PM Referred By: CAITLYN Confirmed By:EL BEASLEY MD
[2020-09-06] MEDS: morphine SR 15 MG Tablet PO (06:28)
[2020-09-06] MEDS: Gabapentin 300 MG Capsule PO (06:28)
[2020-09-06] MEDS: HYDROmorphone 1 MG/ML Syringe IV ×3 (06:34→12:03)
[2020-09-06 06:35] LABS: Bedside Glucose 113 mg/dL (70-110)
[2020-09-06 07:07] LABS: Hemoglobin A1c 6.7 % (3.8-5.6)
--- NOTE | 2020-09-06 07:19 | PN_ITS ---
Patient Problems: Active and Suspected Problems Nephrolithiasis (Acute) Left renal stone (Acute) Subjective: Patient overnight with continued pain to the left flank, significant fatigue, despite significant pain regimen. Urology consulted and planned OR in the afternoon to which patient is amenable. Patient amenable to alteration in pain regimen. Patient denies fevers, chills, nausea, emesis, chest pain or dyspnea. Objective: Physical Examination: General: awake, alert, oriented x 3 and cooperative, seated upright in the MS bed, uncomfortable appearing, fatigued. Skin: normal color, turgor, no icterus, cyanosis. HEENT: AT/NC, EOMI, PERRLA, moderately dry MM. Lungs: Decreased, greater bases, mildly decreased effort likely secondary to pain, moderate decrease BL bases, no rales, ronchi or wheezing. Heart: Regular rate and regular rhythm; no gallop, rub audible. Abdomen: soft, nontender to palpation of the abdomen, significant ongoing left- sided flank pain, nondistended, normal bowel sounds. Extremities: no cyanosis, clubbing, or edema. Neurological: patient awake, alert, oriented x 3; cognitive function intact; pupils equally reactive to light and accomodation; cranial nerves II-XII grossly normal, moving all 4 extremities, no focal deficits, strength worsen given severe pain, moderately to severely global decrease secondary to acute presentation. Psychiatric: affect appears fatigued, uncomfortable, no acute evidence of depressive or anxiety feelings. Vitals/I&O's: Vital Signs Temp Pulse Resp BP Pulse Ox 98.4 F 96 16 122/71 H 94 09/06/20 02:17 09/06/20 02:17 09/06/20 02:17 09/06/20 02:17 09/06/20 02:17 Oxygen Delivery Method Room Air Weight: 188 lb 11.451 oz Body Mass Index (BMI) 25.5 Intake and Output for Last 24 Hours 09/04/20 09/05/20 09/06/20 23:59 23:59 23:59 Intake Total 1706.25 / 1706.25 4440 / 4440 954.17 / 954.17 Output Total 1350 / 1350 1600 / 1600 1350 / 1350 Balance 356.25 / 356.25 2840 / 2840 -395.83 / -395.83 Microbiology Past 72 Hours 09/05/20 14:30 Mucosa - Nose SARS-CoV-2 Antigen (Rapid) - Final Laboratory Results 09/05/20 05:32: Hemoglobin A1c 6.7 H 09/05/20 10:49: POC Glucose 144 H 09/05/20 16:35: POC Glucose 116 H 09/05/20 22:43: POC Glucose 150 H 09/06/20 06:30: POC Glucose 113 H Current Medications Acetaminophen (Acetaminophen 325 Mg Tablet) 650 mg PO Q6H PRN PRN PRN Reason: Pain Score 1-10/Temp > 100.7 F Al Hydroxide/Mg Hydroxide (Mag Hydrox/Al Hydrox/Simeth 30 Ml Udc) 30 ml PO Q6H PRN PRN PRN Reason: Gastric Burning Albuterol Sulfate (Albuterol 2.5 Mg/3 Ml Vial.Neb.) 2.5 mg INHALATION Q2H PRN PRN PRN Reason: Dyspnea, wheezing Famotidine (Famotidine 20 Mg Tablet) 20 mg PO BID [facility] Last Admin: 09/05/20 22:39 Dose: 20 mg Documented by: Gabapentin (Gabapentin 300 Mg Capsule) 300 mg PO TID [facility] Last Admin: 09/06/20 06:28 Dose: 300 mg Documented by: Guaifenesin (Guaifenesin 10 Ml Udc (200mg/10ml)) 20 ml PO Q4H PRN PRN PRN Reason: COUGH Hydralazine HCl (Hydralazine 20 Mg/Ml Vial) 10 mg IV Q4H PRN PRN PRN Reason: SBP > 160 Hydromorphone HCl (Hydromorphone 1 Mg/Ml Syringe) 1 mg IV Q3H PRN PRN PRN Reason: Pain Score 6-10 Last Admin: 09/06/20 06:34 Dose: 1 mg Documented by: Sodium Chloride () 1,000 mls @ 125 mls/hr IV .Q8H [facility] Last Admin: 09/06/20 04:00 Dose: 125 mls/hr Documented by: Sodium Chloride () 250 mls @ 15 mls/hr IV .[id number] PRN PRN Reason: Saline Flush Sodium Chloride () 250 mls @ 15 mls/hr IV .[id number] PRN PRN Reason: Additional IVPB Infusion Insulin Human Lispro (Insulin Lispro 100 Unit/Ml Insuln.Pen) 0 unit SC ACHS [facility]; Protocol Last Admin: 09/06/20 06:31 Dose: Not Given Documented by: Magnesium Hydroxide (Magnesium Hydroxide 30 Ml Udc) 30 ml PO DAILY PRN PRN PRN Reason: Constipation Melatonin (Melatonin 3 Mg Tablet) 3 mg PO QHS PRN PRN PRN Reason: INSOMNIA Morphine Sulfate (Morphine Sr 15 Mg Tablet) 15 mg PO TID [facility] Last Admin: 09/06/20 06:28 Dose: 15 mg Documented by: Ondansetron HCl (Ondansetron 4 Mg/2 Ml Vial) 4 mg IV Q8H PRN PRN PRN Reason: NAUSEA/VOMITING Last Admin: 09/05/20 05:33 Dose: 4 mg Documented by: Oxycodone HCl (Oxycodone 5 Mg Tablet) 10 mg PO Q4H PRN PRN PRN Reason: Pain Score 4-5 Last Admin: 09/06/20 04:05 Dose: 10 mg Documented by: Prochlorperazine Edisylate (Prochlorperazine 10 Mg/2 Ml Vial) 5 mg IV Q4H PRN PRN PRN Reason: Breakthrough nausea/vomiting Last Admin: 09/05/20 14:20 Dose: 5 mg Documented by: Psyllium Hydrophilic Mucilloid (Psyllium 1 Packet) 1 packet PO DAILY PRN PRN PRN Reason: Constipation Senna/Docusate Sodium (Senna/Docusate Sodium 1 Tablet) 2 tablet PO BID PRN PRN PRN Reason: Constipation Sodium Chloride (0.9% Saline Lock 10 Ml Syringe) 10 - 40 ml IV UD PRN PRN Reason: SALINE FLUSH Last Admin: 09/04/20 14:20 Dose: 10 ml Documented by: Tamsulosin HCl (Tamsulosin Hcl 0.4 Mg Capsule) 0.4 mg PO DAILY@1730 [facility] Last Admin: 09/05/20 17:51 Dose: 0.4 mg Documented by: Throat Lozenges (Benzocaine/Menthol 1 Lozenge) 1 lozenge MUCOUS MEM Q2H PRN PRN PRN Reason: SORE THROAT Medical Necessity - Tobacco Use Smoking Status: Current every day smoker - Patient with ongoing 1 pack/day cigarette tobacco usage starting March 1989 although notes he is currently attempting to quit and uses lozenges from the [place]. Tobacco Use: Cigarettes Assessment/Plan All Active Problems Nephrolithiasis (Acute) Left renal stone (Acute) The patient is a 69 y/o M w/ PMHx: CKD stage III, Prior Hx Nephrolithiasis, Diabetes mellitus type II, Chronic back pain on chronic pain regimen with routine injections per pain management who presents to the [facility] ED on 09/04/20 with history of onset significant left-sided flank pain, not improving prompting outside hospital ED evaluation at approximately 1 AM with unremarkable labs and CT noting a left-sided UPJ 4 mm stone at [facility] with discharge to home with self administration of his chronic pain regimen without significant improvement. 1. Acute Flank Pain, secondary to Acute Nephrolithiasis: Urinalysis not marked appearing aside hematuria but no obvious UTI, CBC with no market WC elevation or left shift and no marked anemia, outside hospital CT with left-sided 4 mm UPJ. Patient mated to medical surgical floor, maintained on aggressive hydration, continued to strain urine without any evident stone, maintained on IV scheduled Toradol, increased patient home gabapentin, PRN anti-emetics, monitor I&Os, continue patient chronic pain regimen with oral and IV breakthrough narcotic therapy with additional 09/06/readjustments given ongoing pain, urology consulted with OR 09/06/2020 with left extracorporeal shockwave lithotripsy per Dr. Zurita. Will sure patient pain controlled given chronic underlying pain, likely discharge 09/07/2020 a.m. pending reevaluation. If following are patient needs a Vann catheter would plan to maintain until follow-up with urology. 2. Diabetes mellitus type II: Hold oral home regimen, allow ADA diet once not n.p.o. status, accu checks w/ ISS. 3. Chronic Kidney Disease Stage III: Admission BUN/Cr 19/1.30, baseline renal function suspect similar, most recently noted creatinine 1.0, 09/05/2020 BUN/creatinine 15/1.05, 09/07/2020 plan repeat a.m. labs. 4. Chronic pain syndrome: Patient with chronic back pain with chronic narcotic therapy and injections per pain management, complicates presentation, will continue patient morphine IR although schedule this. Continue overlapping oral and IV regimen, 09/05/2020 planned increase of Dilaudid to every 3 given ongoing intermittent more severe pain episodes. As noted previously increasing gabapentin regimen given acute presentation #1. 5. Tobacco Abuse: Encouraged cessation, inpatient consultation per RT, NR if desired. 6. DVT prophylaxis: SCDs, hold any chemoprophylaxis given intervention. Inpatient E&M: 66499 Subs Hosp L2
[2020-09-06] MEDS: Dextrose 5%/0.9% NaCl 1,000 ML 100 ML IV (09:05)
[2020-09-06] MEDS: Ondansetron 4 MG/2 ML Vial IV (10:57)
[2020-09-06] MEDS: 0.9% Saline Lock 10 ML Syringe IV (10:57)
--- NOTE | 2020-09-06 11:20 | CASEMGMT ---
RN IJEOMA Face to Face with patient for initial transition planning/care coordination assessment. RN CM introduced self and role at [facility]. Patient lying in bed, alert and oriented. Patient willing to participate in assessment and is able to answer all questions appropriately. Care providers, pharmacy, and demographics verified. Patient wishes to discharge home, denies need for home health at this time. Patient states he has no further needs or concerns at this time. CM to follow for discharge planning needs that may arise. PCP: [facility] Specialists: [place]; [facility] Preferred Pharmacy: [facility] Insurance: [facility], [employer] Prescription Benefit: yes Living Will/HPOA: none LNOK: Living Arrangements: Patient lives with in a 3 story home. Patient is independent and able to ambulate stairs. Transportation: self/ DME/HHC: Patient denies DME or previous HHC. Disposition Plan: Patient to discharge home with family support and follow-up plans in place. Mitali MCKEON, RN, CM
[2020-09-06 12:00] LABS: Bedside Glucose 119 mg/dL (70-110)
[2020-09-06 13:55] LABS: Bedside Glucose 143 mg/dL (70-110)
[2020-09-06] MEDS: Cefazolin 2 GM in 0.9% Normal Saline 100 ML IV (15:51)
--- NOTE | 2020-09-06 16:36 | PCM.OPRPT ---
Problem List (1) Left renal stone Status: Acute Report of Operation Date of Procedure: 09/06/20 Pre-Operative Diagnosis: Left ureteral calculi Post-Operative Diagnosis: Same Surgery/Procedure Performed:: Left extracorporeal shockwave lithotripsy Description of Surgical Findings:: 69-year-old male was taken back to the operating room after smooth induction of general anesthesia he was placed supine on the lithotripter table we then found the stone in the mid left ureter. We brought in the lithotripter machine and we found the stone in the mid left ureter using triangulation technique we placed the stone in the F2 focal point of the lithotripter machine and proceeded with shockwave treatment. We started delivering at a rate of 90/min a total of 3000 shocks was delivered to the stone at the end of the treatment cycle the stones are broken up really well one of the fragments migrated northward we treated the stone some more and at the end stone up successfully been fragmented completely. Because of this no stent was placed patient anesthetic is being reversed to be taken back to PACU in good condition he can follow-up in the office in a few weeks with an x-ray. Type of Anesthesia:: General Drains: none - Admit VTE Documentation VTE Present on Admission: No
--- NOTE | 2020-09-06 16:39 | DCINST_ITS ---
Discharge Diet: No Restrictions Discharge Activity: Return to Normal Activity, May Not Drive - for 2 days. Additional Activity Instructions:: f you have a catheter, remove on ___. If you have any problems after catheter is removed, call [phone] and ask for your doctor to be paged. Please be aware that pain medications may cause nausea. You should typically eat light foods as you take your pain medication. Pain medication may cause constipation, if this is a problem for you, please discuss with your doctor. Allergies/Adverse Reactions: Allergies hydrocodone [From Vicodin] Allergy (Verified 09/04/20 08:35) Rash celecoxib [From Celebrex] Adverse Reaction (Verified 09/04/20 12:16) goofy Medications to take at Discharge Alfuzosin HCl [Alfuzosin HCl ER] 10 mg PO DAILY 08/05/17 Gabapentin [Neurontin] 300 mg PO BIDCM 08/05/17 Glimepiride [Amaryl] 4 mg PO DAILY 08/05/17 Meloxicam [Mobic] 15 mg PO DAILY 08/05/17 Ergocalciferol [Vitamin D] 50,000 unit PO .Wednesday09/04/20 Fish Oil/Dha/Epa [Fish Oil 1,200 mg Fish Oil] 1 cap PO DAILY 09/04/20 Morphine Sulfate [Morphine Sulfate ER] 15 mg PO TID PRN PRN 09/04/20 hydrOXYzine pamoate capsule [Vistaril pamoate capsule] 25 - 50 mg PO QHS PRN 09/04/20 Primary Care Physician: Jennifer Lobo DO [Primary Care Provider] - Test Results: Test results from this visit will be discussed in further detail at your follow- up appointment, if applicable. Please Follow Up With: Rey Zurita MD When: in 2 weeks, please call to make an appointment.
[2020-09-06] MEDS: 0.9% Normal Saline 1,000 ML 100 ML IV (16:58)
[2020-09-06 17:15] LABS: Bedside Glucose 132 mg/dL (70-110)
[2020-09-06] MEDS: Tamsulosin HCl 0.4 MG Capsule PO (17:53)
--- NOTE | 2020-09-06 18:29 | DCINST_ITS ---
- Discharge Diagnoses Current Active Problems: Current Active and Chronic Problems 1. Acute Flank Pain, secondary to Acute Nephrolithiasis w/ L UPJ Calculi 2. Diabetes mellitus type II 3. Chronic Kidney Disease Stage III 4. Chronic pain syndrome 5. Tobacco Abuse You will use the following diet at home:: Calorie/Carbohydrate Controlled (specify 1200, 1400, etc) - 1800 ADA diet. Your food should be the consistency of: Regular Your liquids should be the consistency of: Regular/Thin Discharge Activity: Return to Normal Activity, May Not Drive - for 2 days. May resume sexual activity in: - - Once cleared per Urology. Additional Activity Instructions:: f you have a catheter, remove on ___. If you have any problems after catheter is removed, call [phone] and ask for your doctor to be paged. Please be aware that pain medications may cause nausea. You should typically eat light foods as you take your pain medication. Pain medication may cause constipation, if this is a problem for you, please discuss with your doctor. Call your doctor if you observe: Fever of 101 or Higher, Inability to urinate, Inability to have a bowel movement, Shortness of breath, Dizziness, Fainting spells, Chest pain, Uncontrolled pain Instructions: Kidney Stones: Your Evaluation, Identifying Kidney Stones, Treating Kidney Stones: Expectant Therapy, Treating Kidney Stones: Medications, Treating Kidney Stones: Percutaneous Lithotripsy Allergies/Adverse Reactions: Allergies hydrocodone [From Vicodin] Allergy (Verified 09/04/20 08:35) Rash celecoxib [From Celebrex] Adverse Reaction (Verified 09/04/20 12:16) goofy Medications to take at Discharge Alfuzosin HCl [Alfuzosin HCl ER] 10 mg PO DAILY 08/05/17 Gabapentin [Neurontin] 300 mg PO BIDCM 08/05/17 Glimepiride [Amaryl] 4 mg PO DAILY 08/05/17 Meloxicam [Mobic] 15 mg PO DAILY 08/05/17 Ergocalciferol [Vitamin D] 50,000 unit PO .Wednesday09/04/20 Fish Oil/Dha/Epa [Fish Oil 1,200 mg Fish Oil] 1 cap PO DAILY 09/04/20 Morphine Sulfate [Morphine Sulfate ER] 15 mg PO TID PRN PRN 09/04/20 hydrOXYzine pamoate capsule [Vistaril pamoate capsule] 25 - 50 mg PO QHS PRN 09/04/20 Primary Care Physician: Jennifer Lobo DO [Primary Care Provider] - Please follow up with your Primary Care Physician in: Follow-up within 3-5 days to review admission. Test Results: Test results from this visit will be discussed in further detail at your follow- up appointment, if applicable. Please Follow Up With: Rey Zurita MD When: in 2 weeks, please call to make an appointment. Proposed Discharge Date: 09/06/20
--- NOTE | 2020-09-06 18:30 | DS.PCM_ITS ---
Discharge Date and Diagnosis - Problem List Patient Problems: Active and Suspected Problems Nephrolithiasis (Acute) Left renal stone (Acute) Date of Admission: 09/04/20 Date of Discharge: 09/06/20 - Primary Discharge Diagnosis Acute Problems: Active Problems 1. Acute Flank Pain, secondary to Acute Nephrolithiasis w/ L UPJ Calculi 2. Diabetes mellitus type II 3. Chronic Kidney Disease Stage III 4. Chronic pain syndrome 5. Tobacco Abuse - Secondary Discharge Diagnosis Chronic Problems: Chronic Problems Chronic pain syndrome (Chronic) CKD (chronic kidney disease), stage III (Chronic) Diabetes mellitus (Chronic) Tobacco use (Chronic) Hospital Course and Treatment Dr. Zurita, Urology Operations: None Procedures: - - 09/06/20 Left extracorporeal shockwave lithotripsy Summary of Care Provided: The patient is a 69 y/o M w/ PMHx: CKD stage III, Prior Hx Nephrolithiasis, D iabetes mellitus type II, Chronic back pain on chronic pain regimen with routine injections per pain management who presented to the [facility] ED on 09/04/20 with history of onset significant left-sided flank pain, not improving prompting outside hospital ED evaluation at approximately 1 AM with unremarkable labs and CT noting a left-sided UPJ 4 mm stone at [facility] with discharge to home with self administration of his chronic pain regimen without significant improvement. Urinalysis not marked appearing aside hematuria but no obvious UTI, CBC with no market WC elevation or left shift and no marked anemia, outside hospital CT with left-sided 4 mm UPJ. Patient admitted to the medical surgical floor, maintained on aggressive hydration, continued to strain urine without any evident stone, maintained on IV scheduled Toradol, increased patient home gabapentin, PRN anti-emetics, monitor I&Os, continue patient chronic pain regimen with oral and IV breakthrough narcotic therapy with additional 09/06/readjustments given ongoing pain, urology consulted with OR 09/06/2020 with left extracorporeal shockwave lithotripsy per Dr. Zurita. Following procedure with appropriate urine output and oral intake, tolerated with resolution of prior pain. Patient declined any additional pain regimen for discharge and noted his chronic pain regimen would be appropriate. Patient discharged home in improved condition with recommended follow-up with his primary care physician as well as follow-up per urology request. Patient Problems: Active and Suspected Problems Nephrolithiasis (Acute) Left renal stone (Acute) - Physical Exam Vitals/I&O's: Vital Signs Temp Pulse Resp BP Pulse Ox 98.5 F 70 18 114/74 98 09/06/20 17:49 09/06/20 17:49 09/06/20 17:49 09/06/20 17:49 09/06/20 17:49 Oxygen Delivery Method Room Air Weight: 188 lb 11.451 oz Body Mass Index (BMI) 25.5 Finger Stick Blood Glucose 132 Intake and Output for Last 24 Hours 09/04/20 09/05/20 09/06/20 23:59 23:59 23:59 Intake Total 1706.25 / 1706.25 4440 / 4440 1114.17 / 1114.17 Output Total 1350 / 1350 1600 / 1600 2500 / 2500 Balance 356.25 / 356.25 2840 / 2840 -1385.83 / -1385.83 Microbiology Past 72 Hours 09/05/20 14:30 Mucosa - Nose SARS-CoV-2 Antigen (Rapid) - Final Laboratory Results 09/05/20 05:32: Hemoglobin A1c 6.7 H 09/05/20 22:43: POC Glucose 150 H 09/06/20 06:30: POC Glucose 113 H 09/06/20 11:54: POC Glucose 119 H 09/06/20 13:47: POC Glucose 143 H 09/06/20 17:13: POC Glucose 132 H Current Medications Acetaminophen (Acetaminophen 325 Mg Tablet) 650 mg PO Q6H PRN PRN PRN Reason: Pain Score 1-10/Temp > 100.7 F Al Hydroxide/Mg Hydroxide (Mag Hydrox/Al Hydrox/Simeth 30 Ml Udc) 30 ml PO Q6H PRN PRN PRN Reason: Gastric Burning Albuterol Sulfate (Albuterol 2.5 Mg/3 Ml Vial.Neb.) 2.5 mg INHALATION Q2H PRN PRN PRN Reason: Dyspnea, wheezing Famotidine (Famotidine 20 Mg Tablet) 20 mg PO BID [facility] Last Admin: 09/06/20 12:07 Dose: Not Given Documented by: Gabapentin (Gabapentin 300 Mg Capsule) 300 mg PO TID [facility] Last Admin: 09/06/20 15:47 Dose: Not Given Documented by: Guaifenesin (Guaifenesin 10 Ml Udc (200mg/10ml)) 20 ml PO Q4H PRN PRN PRN Reason: COUGH Hydralazine HCl (Hydralazine 20 Mg/Ml Vial) 10 mg IV Q4H PRN PRN PRN Reason: SBP > 160 Hydromorphone HCl (Hydromorphone 1 Mg/Ml Syringe) 1 mg IV Q3H PRN PRN PRN Reason: Pain Score 6-10 Last Admin: 09/06/20 12:03 Dose: 1 mg Documented by: Sodium Chloride () 250 mls @ 15 mls/hr IV .[id number] PRN PRN Reason: Saline Flush Sodium Chloride () 250 mls @ 15 mls/hr IV .[id number] PRN PRN Reason: Additional IVPB Infusion Dextrose/Sodium Chloride (Dextrose 5%/0.9% Nacl) 1,000 mls @ 100 mls/hr IV .Q10H [facility] Last Admin: 09/06/20 09:05 Dose: 100 mls/hr Documented by: Sodium Chloride () 1,000 mls @ 100 mls/hr IV .Q10H [facility] Last Admin: 09/06/20 16:58 Dose: 100 mls/hr Documented by: Insulin Human Lispro (Insulin Lispro 100 Unit/Ml Insuln.Pen) 0 unit SC [facility]; Protocol Last Admin: 09/06/20 17:47 Dose: Not Given Documented by: Magnesium Hydroxide (Magnesium Hydroxide 30 Ml Udc) 30 ml PO DAILY PRN PRN PRN Reason: Constipation Melatonin (Melatonin 3 Mg Tablet) 3 mg PO QHS PRN PRN PRN Reason: INSOMNIA Morphine Sulfate (Morphine Sr 15 Mg Tablet) 15 mg PO TID [facility] Last Admin: 09/06/20 15:47 Dose: Not Given Documented by: Ondansetron HCl (Ondansetron 4 Mg/2 Ml Vial) 4 mg IV Q8H PRN PRN PRN Reason: NAUSEA/VOMITING Last Admin: 09/06/20 10:57 Dose: 4 mg Documented by: Oxycodone HCl (Oxycodone 5 Mg Tablet) 10 mg PO Q4H PRN PRN PRN Reason: Pain Score 4-5 Last Admin: 09/06/20 10:52 Dose: 10 mg Documented by: Prochlorperazine Edisylate (Prochlorperazine 10 Mg/2 Ml Vial) 5 mg IV Q4H PRN PRN PRN Reason: Breakthrough nausea/vomiting Last Admin: 09/05/20 14:20 Dose: 5 mg Documented by: Psyllium Hydrophilic Mucilloid (Psyllium 1 Packet) 1 packet PO DAILY PRN PRN PRN Reason: Constipation Senna/Docusate Sodium (Senna/Docusate Sodium 1 Tablet) 2 tablet PO BID PRN PRN PRN Reason: Constipation Sodium Chloride (0.9% Saline Lock 10 Ml Syringe) 10 - 40 ml IV UD PRN PRN Reason: SALINE FLUSH Last Admin: 09/06/20 10:57 Dose: 10 ml Documented by: Tamsulosin HCl (Tamsulosin Hcl 0.4 Mg Capsule) 0.4 mg PO DAILY@1730 [facility] Last Admin: 09/06/20 17:53 Dose: 0.4 mg Documented by: Throat Lozenges (Benzocaine/Menthol 1 Lozenge) 1 lozenge MUCOUS MEM Q2H PRN PRN PRN Reason: SORE THROAT Discharge Diet: No Restrictions Discharge Activity: Return to Normal Activity, May Not Drive - for 2 days. May resume sexual activity in: - - Once cleared per Urology. Additional Activity Instructions:: f you have a catheter, remove on ___. If you have any problems after catheter is removed, call [phone] and ask for your doctor to be paged. Please be aware that pain medications may cause nausea. You should typically eat light foods as you take your pain medication. Pain medication may cause constipation, if this is a problem for you, please discuss with your doctor. Call your doctor if you observe: Fever of 101 or Higher, Inability to urinate, Inability to have a bowel movement, Shortness of breath, Dizziness, Fainting spells, Chest pain, Uncontrolled pain Home Medications: Medications to take at Discharge Alfuzosin HCl [Alfuzosin HCl ER] 10 mg PO DAILY 08/05/17 Gabapentin [Neurontin] 300 mg PO BIDCM 08/05/17 Glimepiride [Amaryl] 4 mg PO DAILY 08/05/17 Meloxicam [Mobic] 15 mg PO DAILY 08/05/17 Ergocalciferol [Vitamin D] 50,000 unit PO .Wednesday09/04/20 Fish Oil/Dha/Epa [Fish Oil 1,200 mg Fish Oil] 1 cap PO DAILY 09/04/20 Morphine Sulfate [Morphine Sulfate ER] 15 mg PO TID PRN PRN 09/04/20 hydrOXYzine pamoate capsule [Vistaril pamoate capsule] 25 - 50 mg PO QHS PRN 09/04/20 Primary Care Physician: Jennifer Lobo DO [Primary Care Provider] - Please follow up with your Primary Care Physician in: Follow-up within 3-5 days to review admission. Please Follow Up With: Rey Zurita MD When: in 2 weeks, please call to make an appointment. Patient Instructions: Identifying Kidney Stones, Kidney Stones: Your Evaluation, Treating Kidney Stones: Expectant Therapy, Treating Kidney Stones: Medications, Treating Kidney Stones: Percutaneous Lithotripsy Disposition: Home Minutes spent on discharge:: 35 Patient Condition:: Fair Medical Necessity - Tobacco Use Smoking Status: Current every day smoker - Patient with ongoing 1 pack/day cigarette tobacco usage starting March 1989 although notes he is currently attempting to quit and [facility]. Tobacco Use: Cigarettes Meaningful Use Info Meaningful Use Diagnoses (Choose all that apply): None applicable Inpatient E&M: 62784 Disch Hosp
== END 2020-09-06 18:30 | disposition home or self-care (01) | DRG 694 ==
LOC: ED 09:10 → MS3 10:48
PROVIDERS: Anesthesiology; Urology; Admitting Provider Family Medicine; Emergency Provider Emergency Medicine; PCP Family Medicine; Visit Provider Family Medicine
PROC: 0TF7XZZ Fragmentation in Left Ureter, External Approach (ICD-10-PCS; CPT 50590; principal; 2020-09-06 15:30)
DX: N20.1 Calculus of ureter (principal); Z87.442 Personal history of urinary calculi; M19.90 Unspecified osteoarthritis, unspecified site; G89.4 Chronic pain syndrome; E11.22 Type 2 diabetes mellitus with diabetic chronic kidney disease; N18.30 Chronic kidney disease, stage 3 unspecified; Z79.84 Long term (current) use of oral hypoglycemic drugs; Z79.1 Long term (current) use of non-steroidal anti-inflammatories (NSAID); Z79.899 Other long term (current) drug therapy; F17.210 Nicotine dependence, cigarettes, uncomplicated; Z86.73 Personal history of transient ischemic attack (TIA), and cerebral infarction without residual deficits; Z23 Encounter for immunization
CPT/HCPCS: 36415; 74018; 80048; 80053; 81001; 82962; 83036; 85025; 87426; 93005; 99284; 99406; G0008; J7030; 90686; A4216; J2405

== ENCOUNTER → 2020-09-23 15:13 | Outpatient (CLI) | payer MEDICARE, OTHER, SELFPAY ==
[2020-09-06 13:58] VITALS: BMI 25.5
--- NOTE | 2020-09-23 15:50 | RAD_ITS ---
HISTORY: Patient had procedure to remove Left kidney stones on 09/06/20. This is a follow up to make sure they were successfully removed. EXAMINATION/TECHNIQUE: XR Abdomen 1 View: COMPARISON: September 05, 2020 FINDINGS: LINES AND TUBES: None. BOWEL GAS PATTERN: Non-obstructive. No bowel or stomach distention. Retained fecal material is again noted throughout the colon FREE AIR: Not assessed on a single supine view. ORGANOMEGALY: Not seen. CALCIFICATIONS: Vascular calcifications are seen within the pelvis There are calcifications seen overlying the super pole left kidney. The calcification that is seen adjacent to the transverse process of L3 on the left on the prior study is not seen on this study. LOWER CHEST: No acute pathology. BONES AND SOFT TISSUES: No acute pathology. RAD/Abdomen Single View IMPRESSION: Non-obstructive bowel gas pattern. The calcification that was seen on the prior study adjacent to the left L3 transverse process is not seen on the study There are calcifications seen overlying the super pole left kidney that were present on the prior study at 0034 Reported and signed by: Jess Borja DO Electronically Signed: Jess Borja DO at 0:33 EST Tel , Service support ,
== END ==
PROVIDERS: PCP Family Medicine; Referring Provider Nurse Practitioner Adult Health; Visit Provider Nurse Practitioner Adult Health
DX: N20.0 Calculus of kidney (principal)
CPT/HCPCS: 74018

== ENCOUNTER 2022-08-08 09:55 | Emergency (ER) | payer OTHER, SELFPAY ==
[2022-08-08 09:56] VITALS: BP 137/81; PULSE 117; RESP 17; TEMP 35.6; O2SAT 99; BMI 25.6
--- NOTE | 2022-08-08 10:09 | EDS_ITS ---
HPI HPI - GI History of Present Illness Chief Complaint: Foreign Body Detail of Chief Complaint: Esophageal body Informant: patient Narrative Narrative: Patient presents the emergency department with esophageal food impaction. Patient states an hour ago he was eating rolled up ham when he feels like a piece got stuck in his throat. Patient relates history 2 years ago of similar event that resolved after receiving glucagon in the emergency department. Patient states that he has been trying to swallow water without success. He denies any chest pain or abdominal pain. Patient is never had to have EGD or sc ope. Patient is a diabetic and history of chronic pain. Prior similar symptoms: Yes PFSH PFSH Home Medications alfuzosin 10 mg tablet,extended release 24 hr 10 mg PO DAILY 08/05/17 [History Last Taken Unknown] gabapentin 300 mg capsule 300 mg PO BIDCM 08/05/17 [History Last Taken Unknown] glimepiride 4 mg tablet 4 mg PO DAILY 08/05/17 [History Last Taken Unknown] meloxicam 15 mg tablet 15 mg PO DAILY 08/05/17 [History Last Taken Unknown] ergocalciferol (vitamin D2) 1,250 mcg (50,000 unit) capsule 50,000 unit PO .Wednesday09/04/20 [History Last Taken Unknown] fish oil-dha-epa 1,200 mg-144 mg-216 mg capsule 1 cap PO DAILY 09/04/20 [History Last Taken Unknown] hydroxyzine pamoate 25 mg capsule 25 - 50 mg PO QHS PRN Itching 09/04/20 [History Last Taken Unknown] morphine 15 mg tablet,extended release 15 mg PO TID PRN PRN Pain Score 1-10 09/04/20 [History Last Taken Unknown] Allergy/AdvReac Type Severity Reaction Status Date / Time hydrocodone [From Vicodin] Allergy Rash Verified 08/08/22 09:56 celecoxib [From Celebrex] AdvReac goofy Verified 08/08/22 09:56 Social History Smoking Status: Current every day smoker (Patient with ongoing 1 pack/day cigarette tobacco usage starting March 1989 although notes he is currently attempting to quit and [facility] ROS ROS ED Review of Systems ROS Unobtainable: other Constitutional Constitutional ED: Reports lethargy; Denies chills, fever(s), sweats or weight loss Eyes Eyes: Denies blurry vision, change in vision or diplopia ENT ENT ED: Denies rhinorrhea or sore throat Cardiovascular Cardiovascular: Denies chest pain, orthopnea or racing heartbeat Respiratory/Chest Respiratory/Chest: Denies cough, dyspnea, dyspnea on exertion, orthopnea or sputum Gastrointestinal Gastrointestinal: Reports other Details: Esophageal food impaction ; Denies abdominal pain, diarrhea, nausea or vomiting Genitourinary Genitourinary ED: Denies dysuria, hematuria or urinary frequency Musculoskeletal Musculoskeletal: Denies arthralgias, back pain, myalgias or neck pain Integumentary Denies abscess, Abrasions or rash Neurologic Neurologic: Denies headache(s) or weakness Psychiatric Psychiatric: Denies anxiety, depression or suicidal thoughts Endocrine Endocrinology: Denies polydipsia, polyphagia or polyuria Hematologic/Lymphatic Hematologic/Lymphatic: Denies easy bleeding, easy bruising or lymphadenopathy Allergic/Immunologic Allergic/Immunologic ED: Denies mouth swelling, tongue swelling or urticaria EXAM Physical Exam Const Vital Signs: 08/08/22 09:56 Temperature 96.0 F L Temperature Source Temporal Pulse Rate 117 H Respiratory Rate 17 Blood Pressure 137/81 H Blood Pressure Mean 99 Pulse Ox 99 Oxygen Delivery Method Room Air Positive well nourished and well developed General Appearance ED: well developed and NAD HEENT Reports TM's clear and moist mucous membranes normocephalic and atraumatic; Negative for trauma or tenderness Tympanic Membrane ED: Yes TM's clear Eyes PERRL and EOMs intact bilaterally General Eye ED: Negative for pale conjunctiva or scleral icterus Neck no lymphadenopathy, supple and no JVD General: Negative for tenderness Chest Wall inspection of chest normal and palpation of chest normal Chest: Negative for tenderness Resp normal respiratory effort and clear to auscultation bilaterally Effort and Inspection: Negative for respiratory distress or pain with movement Auscultation: Negative for rhonchi, wheezes or diminished lung sounds Cardio regular rate, regular rhythm, S1 normal heart sound, S2 normal heart sound and no murmurs Peripheral Pulses: pulses 2+ throughout GI normal to inspection, nondistended, normoactive bowel sounds, soft to palpation, non-tender, non-distended and no masses Back/Spine no CVA tenderness and no thoracic nor lumbar tenderness Extremity normal to inspection General Extremety ED: Negative for edema General Extremity: Negative for edema Neuro oriented x3, CN's II-XII intact bilaterally, no sensory deficits noted and gait normal Sensorium / Orientation: awake, alert, oriented to person, oriented to place and oriented to time Motor Exam: strength 5/5 throughout and strength abnormal Psych mental status grossly normal Skin no rashes or lesions noted and no wounds MDM MDM MDM Narrative Medical decision making narrative: Discussed options with patient initially we attempted Coca-Cola. Patient took a sip of Coca-Cola and immediately vomited. Patient felt like the obstruction may have resolved after. Will observe for 10 minutes and see if he can continue to drink and passed fluids. His second sip of Coca-Cola apparently seem to go down. On repeat evaluation patient was able to drink the remainder of the Coke can. He has just minimal discomfort left but thinks the obstructions resolved. At this point I feel patient can be discharged to home and he is in agreement. He is advised to return to the ER if inability to swallow liquids or unable to eat. Patient advised to chew his food well. He now gives me history that 3 years ago he was seen by GI and had dilatation of his esophagus. Patient advised to follow-up with GI Dr. Mora within the next 3 to 5 days. Discharge Plan Triage Chief Complaint: Foreign Body ED Provider: Kevin Griffin Dx/Rx/DC Orders Clinical Impression: Food impaction of esophagus Instructions: ED Esophageal Foreign Body, Resolved Prescriptions: No Action meloxicam 15 MG tablet 15 mg PO DAILY glimepiride 4 MG tablet 4 mg PO DAILY gabapentin 300 MG capsule 300 mg PO BIDCM alfuzosin 10 MG Tab.Er.24h 10 mg PO DAILY ergocalciferol (vitamin D2) 50,000 UNIT capsule 50,000 unit PO .WEDNESDAY hydroxyzine pamoate 25 MG capsule 25 - 50 mg PO QHS PRN (Reason: Itching) Label Comments: take 1 to 2 capsules by mouth at bedtime if needed for itching fish oil-dha-epa 1 EACH capsule 1 cap PO DAILY morphine 15 MG tablet extended release 15 mg PO TID PRN PRN (Reason: Pain Score 1-10) Primary Care Provider: Jennifer Lobo Referrals: Jennifer Lobo DO [Primary Care Provider] - Joo Mora MD [Non-Staff] - 3-5 Days Disposition Disposition: Home, Self Care
== END 2022-08-08 10:35 | disposition home or self-care (01) ==
PROVIDERS: Emergency Provider Emergency Medicine; PCP Family Medicine; Visit Provider Emergency Medicine
DX: T18.108A Unspecified foreign body in esophagus causing other injury, initial encounter (principal); E11.9 Type 2 diabetes mellitus without complications; F17.210 Nicotine dependence, cigarettes, uncomplicated; X58.XXXA Exposure to other specified factors, initial encounter
CPT/HCPCS: 99282

== ENCOUNTER 2022-09-15 20:11 | Emergency (ER) | payer MEDICARE, OTHER, SELFPAY ==
[2022-09-15 20:12] VITALS: BP 183/96; PULSE 118; RESP 15; TEMP 36.9; O2SAT 97; BMI 25.4
--- NOTE | 2022-09-15 21:09 | CT_ITS ---
STUDY: CT ABDOMEN AND PELVIS WITHOUT CONTRAST REASON FOR EXAM: Male, 71 years old. left flank pain RADIATION DOSAGE (If Supplied By Facility): CTDIvol = ( 9.78 ) mGy, DLP = ( 550.02 ) mGycm TECHNIQUE: Transaxial images were obtained from the dome of the diaphragm to the symphysis pubis without oral contrast, and without intravenous contrast. Sagittal and coronal images were reconstructed. Individualized dose optimization techniques were used for this CT. COMPARISON: None. FINDINGS: Nonspecific prominence of the interstitial markings at the lung bases.. Heart size is normal. There is multivessel coronary artery calcification Small hiatal hernia is noted Normal liver. Normal gallbladder and extrahepatic biliary system. Normal spleen. Mildly atrophic fatty infiltrated pancreas Normal bilateral adrenal glands. Tiny nonobstructing right renal calculi. Small right renal parapelvic cyst which will not require additional imaging. Mild left hydroureteronephrosis secondary to calculus in the mid ureter measuring approximately 4 to 5 mm Normal visualized stomach. Normal small intestine. Diverticular changes of the distal descending and sigmoid colon without evidence for acute diverticulitis The appendix is visualized and appears normal. Diffuse atherosclerotic calcification of the aorta without evidence for aneurysm Normal inferior vena cava. Normal retroperitoneum. Normal urinary bladder. Mild nonspecific enlargement of prostate. Normal abdominal wall. Normal osseous structures. CT/Abdomen/Pelvis without Cont IMPRESSION: Nonobstructing right renal calculi. Mild left hydronephrosis secondary to calculus in the mid ureter measuring approximately 4 to 5 mm Electronically Signed: Kumar Lamar MD at 22:11 EST ,
--- NOTE | 2022-09-15 21:10 | EDS_ITS ---
HPI History of Present Illness Chief Complaint: Flank Pain Detail of Chief Complaint: Left flank pain that started 2 hours ago Informant: patient Onset/Context/Timing Current Severity: 07/04 Narrative Narrative: Patient presents the emergency department complaint of left flank pain that started 2 hours ago. Patient has history of kidney stones. Describes the pain radiating to the front of the left lower abdomen and into the left testicle. Patient thinks he may have seen some blood in the urine. Patient denies fevers. He has had nausea and dry heaves. Currently rates his pain a 9 out of 10. PFSH PFS Home Medications alfuzosin 10 mg tablet,extended release 24 hr 10 mg PO DAILY 08/05/17 [History Last Taken Unknown] gabapentin 300 mg capsule 300 mg PO BIDCM 08/05/17 [History Last Taken Unknown] glimepiride 4 mg tablet 4 mg PO DAILY 08/05/17 [History Last Taken Unknown] meloxicam 15 mg tablet 15 mg PO DAILY 08/05/17 [History Last Taken Unknown] ergocalciferol (vitamin D2) 1,250 mcg (50,000 unit) capsule 50,000 unit PO .Wednesday09/04/20 [History Last Taken Unknown] fish oil-dha-epa 1,200 mg-144 mg-216 mg capsule 1 cap PO DAILY 09/04/20 [History Last Taken Unknown] morphine 15 mg tablet,extended release 15 mg PO TID PRN PRN Pain Score 1-10 09/04/20 [History Last Taken Unknown] ondansetron 4 mg disintegrating tablet 4 mg PO Q8H PRN PRN Nausea #10 tabs 09/15/22 [Rx Last Taken Unknown] oxycodone-acetaminophen 5 mg-325 mg tablet 1 tab PO Q6H PRN PRN Pain 3 days #12 TABLETS 09/15/22 [Rx Last Taken Unknown] Allergy/AdvReac Type Severity Reaction Status Date / Time hydrocodone [From Vicodin] Allergy Rash Verified 09/15/22 20:12 celecoxib [From Celebrex] AdvReac goofy Verified 09/15/22 20:12 Social History Smoking Status: Current every day smoker tobacco type: cigarettes ROS ROS ED Review of Systems ROS Unobtainable: other Constitutional Constitutional ED: Reports lethargy; Denies chills, fever(s), sweats or weight loss Eyes Eyes: Denies blurry vision, change in vision or diplopia ENT ENT ED: Denies rhinorrhea or sore throat Cardiovascular Cardiovascular: Denies orthopnea or racing heartbeat Respiratory/Chest Respiratory/Chest: Denies cough, dyspnea, dyspnea on exertion, orthopnea or sputum Gastrointestinal Gastrointestinal: Reports abdominal pain; Denies diarrhea, nausea or vomiting Genitourinary Genitourinary ED: Reports hematuria; Denies dysuria or urinary frequency Musculoskeletal Musculoskeletal: Reports back pain; Denies arthralgias, myalgias or neck pain Integumentary Denies abscess, Abrasions or rash Neurologic Neurologic: Denies headache(s) or weakness Psychiatric Psychiatric: Denies anxiety, depression or suicidal thoughts Endocrine Endocrinology: Denies polydipsia, polyphagia or polyuria Hematologic/Lymphatic Hematologic/Lymphatic: Denies easy bleeding, easy bruising or lymphadenopathy Allergic/Immunologic Allergic/Immunologic ED: Denies mouth swelling, tongue swelling or urticaria EXAM Physical Exam Const Vital Signs: 09/15/22 20:12 09/15/22 21:12 Temperature 98.4 F Temperature Source Temporal Pulse Rate 118 H Respiratory Rate 15 18 Blood Pressure 183/96 H Blood Pressure Mean 125 Pulse Ox 97 Oxygen Delivery Method Room Air Positive well nourished and well developed General Appearance ED: well developed and NAD HEENT Reports TM's clear and moist mucous membranes normocephalic and atraumatic; Negative for trauma or tenderness Tympanic Membrane ED: Yes TM's clear Eyes PERRL and EOMs intact bilaterally General Eye ED: Negative for pale conjunctiva or scleral icterus Neck no lymphadenopathy, supple and no JVD General: Negative for tenderness Chest Wall inspection of chest normal and palpation of chest normal Chest: Negative for tenderness Resp normal respiratory effort and clear to auscultation bilaterally Effort and Inspection: Negative for respiratory distress or pain with movement Auscultation: Negative for rhonchi, wheezes or diminished lung sounds Cardio regular rate, regular rhythm, S1 normal heart sound, S2 normal heart sound and no murmurs Peripheral Pulses: pulses 2+ throughout GI normal to inspection, nondistended, normoactive bowel sounds, soft to palpation, non-distended and no masses GI Narrative: Tenderness palpation over left lower quadrant with some guarding. There is no rebound, rigidity, or Signs. Back/Spine Negative for no thoracic nor lumbar tenderness Back/Spine Narrative: Patient has CVA tenderness on the left. Extremity normal to inspection General Extremety ED: Negative for edema General Extremity: Negative for edema Neuro oriented x3, CN's II-XII intact bilaterally, no sensory deficits noted and gait normal Sensorium / Orientation: awake, alert, oriented to person, oriented to place and oriented to time Motor Exam: strength 5/5 throughout and strength abnormal Psych mental status grossly normal Skin no rashes or lesions noted and no wounds MDM MDM MDM Narrative Medical decision making narrative: Established on arrival. Patient was medicated with Dilaudid and Zofran and Toradol and had good pain relief with that. CBC with differential was unrema rkable. Chemistries unremarkable. Urinalysis showed 10-25 RBCs but no signs of infection. CT flank showed a 4 to 5 mm mid ureter kidney stone on the left with mild hydroureter and hydronephrosis. At this point patient will be sent home with urine strainer and a prescription for Percocet. Patient advised to follow- up with his urologist within next 3 to 5 days. He is advised to return if worse libby pain, fever, vomiting, or condition should worsen anyway. Patient also given a prescription for Zofran. Lab Data Attestation: I reviewed the patient's lab results. Labs: Laboratory Results - last 24 hr 09/15/22 09/15/22 09/15/22 21:22 21:22 21:47 WBC 10.2 RBC 5.24 Hgb 16.4 Hct 49.1 MCV 93.7 MCH 31.3 MCHC 33.4 RDW Std Deviation 47.7 H RDW Coeff of Dane 13.7 Plt Count 186 MPV 10.4 Immature Gran % (Auto) 0.400 Neut % (Auto) 47.1 Lymph % (Auto) 41.4 H [place] % (Auto) 7.6 Eos % (Auto) 3.0 Baso % (Auto) 0.5 Absolute Neuts (auto) 4.8 Absolute Lymphs (auto) 4.21 Nucleated RBC % 0 Sodium 140 Potassium 4.4 Chloride 108 H Carbon Dioxide 26.0 Anion Gap 6 BUN 17 Creatinine 1.22 Estim Creat Clear Calc 61.84 Est GFR (MDRD) Af Amer 75 Est GFR (MDRD) Non-Af 62 BUN/Creatinine Ratio 13.9 Glucose 204 H Calcium 9.6 Urine Color Yellow Urine Clarity Clear Urine pH 5.0 Ur Specific [place] 1.015 Urine Protein Negative Urine Glucose (UA) 1000 H Urine Ketones 5 H Urine Occult Blood 250 H Urine Nitrite Negative Urine Bilirubin Negative Urine Urobilinogen Normal Ur Leukocyte Esterase Negative Urine RBC 10-25 SEEN Urine WBC 0 SEEN Ur Squamous Epith Cells 0 SEEN Urine Bacteria 0 SEEN Urine Mucus 0 SEEN Radiography Diagnostic Testing: Clinical Impression(s) from Imaging Studies Abdomen/Pelvis CT 09/15/22 21:09 IMPRESSION: Nonobstructing right renal calculi. Mild left hydronephrosis secondary to calculus in the mid ureter measuring approximately 4 to 5 mm Electronically Signed: Kumar Lamar MD at 22:11 EST Reading Location ID and State: [facility] / [place] , Service support , Discharge Plan Triage Chief Complaint: Flank Pain ED Provider: Kevin Griffin Dx/Rx/DC Orders Clinical Impression: Urolithiasis Instructions: ED Kidney Stone w/ Colic Prescriptions: New oxycodone-acetaminophen [oxycodone-acetaminophen] 1 TABLET tablet 1 tab PO Q6H PRN PRN (Reason: Pain) 3 Days Qty: 12 0RF ondansetron [ondansetron] 4 MG tablet 4 mg PO Q8H PRN PRN (Reason: Nausea) Qty: 10 0RF No Action meloxicam 15 MG tablet 15 mg PO DAILY glimepiride 4 MG tablet 4 mg PO DAILY gabapentin 300 MG capsule 300 mg PO BIDCM alfuzosin 10 MG tablet extended release 24 hr 10 mg PO DAILY ergocalciferol (vitamin D2) 50,000 UNIT capsule 50,000 unit PO .WEDNESDAY fish oil-dha-epa 1 EACH capsule 1 cap PO DAILY morphine 15 MG tablet extended release 15 mg PO TID PRN PRN (Reason: Pain Score 1-10) Primary Care Provider: Jennifer Lobo Referrals: Rey Zurita MD [Med Staff - Active Staff] - 3-5 Days Jennifer Lobo DO [Primary Care Provider] - Disposition Disposition: Home, Self Care
[2022-09-15 21:12] VITALS: RESP 18
[2022-09-15 21:28] LABS: Absolute Lymphocyte Count 4.21 X10^3/uL (0.83-4.51); Absolute Neutrophil Count 4.8 X10^3/uL (2.0-7.7); Basophil# 0.05 X10^3/uL; Basophil% 0.5 % (0-1); Hematocrit 49.1 % (40-54); Hemoglobin 16.4 g/dL (13.0-16.5); Lymphocyte # 4.21 X10^3/ul (0.83-4.51); Lymphocyte % 41.4 % (19-41); Mean Corp Hgb Conc 33.4 g/dL (32-36); Mean Corpuscular Hgb 31.3 pg (27.0-32.0); Mean Corpuscular Volume 93.7 fL (80-94); Mean Platelet Vol. 10.4 fl (6.2-12.0); Monocyte# 0.77 X10^3/uL; Monocyte% 7.6 % (0-10); NRBC Flagged by Analyzer 0 % (0-5); Neutrophil # 4.79 X10^3/uL (2.7-7.7); Neutrophil % 47.1 % (47-70); Platelet Count 186 K/mm3 (150-450); RBC Distribution Width CV 13.7 % (11.6-14.6); RBC Distribution Width SD 47.7 fl (35.1-43.9); Red Blood Count 5.24 M/mm3 (4.6-6.2); White Blood Count 10.2 K/mm3 (4.4-11.0)
[2022-09-15] MEDS: Ondansetron 4 MG/2 ML Vial IV (21:37)
[2022-09-15] MEDS: HYDROmorphone 1 MG/ML Syringe IV (21:37)
[2022-09-15] MEDS: 0.9% Normal Saline 1,000 ML 150 ML IV (21:37)
[2022-09-15] MEDS: Ketorolac 15 MG/ML Vial IV (21:37)
[2022-09-15 21:51] LABS: Anion Gap 6 (5-15); BUN 17 mg/dL (7-18); BUN/Creat Ratio 13.9 RATIO (10-20); Calcium,Total 9.6 mg/dL (8.5-10.1); Chloride 108 mmol/L (98-107); Creatinine, Serum 1.22 mg/dL (0.70-1.30); EST Glomerular Filtration Rate 62 mL/min (>60); Est Glom Filt Rate - Afr Amer 75 mL/min (>60); Estimated Creatinine Clearance 61.84 ml/min; Glucose 204 mg/dL (74-106); Potassium 4.4 mmol/L (3.5-5.1); Sodium Level 140 mmol/L (136-145)
[2022-09-15 21:52] LABS: Bacteria 0 SEEN /hpf (None Seen); Mucous, Urine 0 SEEN /hpf (<or=2+); Squamous Epithelial Cells - UA 0 SEEN /hpf (0-5); White Blood Cells 0 SEEN /hpf (0-5)
[2022-09-15 22:00] VITALS: BP 168/96; PULSE 91; RESP 20; O2SAT 96
[2022-09-15 22:01] LABS: Color, Urine Yellow (Yellow); Glucose, Dipstick 1000 mg/dl (Normal); Ketone-Dipstick 5 mg/dl (Negative); Leukocyte Esterase-Dipstick Negative /ul (Negative); Nitrite-Dipstick Negative (Negative); Occult Blood-Urine 250 /ul (Negative); Protein-Dipstick Negative (Negative); Specific Gravity, Urine 1.015 (1.002-1.030); Urine Bilirubin Dipstick Negative (Negative); Urine Clarity Clear (Clear); Urine Urobilinogen Normal (Normal)
[2022-09-15 22:08] LABS: Red Blood Cells-Urine 10-25 SEEN /hpf (0-5)
[2022-09-15 22:27] VITALS: RESP 20
== END 2022-09-15 23:07 | disposition home or self-care (01) ==
PROVIDERS: Emergency Provider Emergency Medicine; PCP Family Medicine; Visit Provider Emergency Medicine
DX: N13.2 Hydronephrosis with renal and ureteral calculous obstruction (principal); F17.210 Nicotine dependence, cigarettes, uncomplicated; N13.4 Hydroureter; R10.9 Unspecified abdominal pain; R11.0 Nausea
CPT/HCPCS: 74176; 80048; 81001; 85025; 96361; 96374; 96375; 99283; J7030; A4216; J2405

== ENCOUNTER → 2022-09-21 | Outpatient (CLI) | payer MEDICARE, OTHER, SELFPAY ==
--- NOTE | 2022-09-21 10:29 | RAD_ITS ---
INDICATION: CALCULUS OF URETER EXAMINATION/TECHNIQUE: X-RAY - XR Abdomen 1 View COMPARISON: 09/23/2020 FINDINGS: BOWEL GAS PATTERN: Non-obstructive. No bowel or stomach distention. FREE AIR: Not assessed on a single supine view. ORGANOMEGALY: Not seen. CALCIFICATIONS: No radiodense urinary calculi identified. BONES AND SOFT TISSUES: No acute pathology. RAD/Abdomen Single View IMPRESSION: No radiodense urinary calculi. Electronically Signed: Bladimir Pérez MD at 22:50 EST ,
[2022-09-29 15:59] LABS: Source Not Provided
== END | disposition home or self-care (01) ==
PROVIDERS: PCP Family Medicine; Referring Provider Urology; Visit Provider Urology
DX: N20.1 Calculus of ureter (principal)
CPT/HCPCS: 74018; 82360

== ENCOUNTER 2022-12-20 10:36 | Emergency (ER) | payer MEDICARE, OTHER, SELFPAY ==
[2022-12-20 10:38] VITALS: BP 141/77; PULSE 120; RESP 18; TEMP 36.4; O2SAT 97; BMI 25.0
[2022-12-20 10:49] VITALS: BP 147/85; PULSE 114; RESP 20; TEMP 36.4; O2SAT 96
--- NOTE | 2022-12-20 10:57 | EDS_ITS ---
HPI History of Present Illness Chief Complaint: Shortness of Breath Informant: patient Narrative Narrative: Patient presenting with cough and dyspnea with exertion for the past 9 or 10 days. In addition, after the cough started, his left ear started hurting and r adiating down his left jaw. He has decreased hearing with this. Today, he had subjective fevers and chills. He was seen initially at the urgent care at [facility] here in [place], he states they did a COVID swab and influenza swab, those were negative, and needed a chest x-ray, and based on all of this diagnosed him with bronchitis and prescribed him cough suppressant, albuterol inhaler which has been helping some with the dyspnea on exertion, and he is progressively getting worse so he came to the emergency department. No known history of cardiac problems or COPD. Denies any leg swelling. He feels like he has a lot of chest congestion, maybe some wheezing sometimes, it feels worse when he is having coughing spasms and along with some rib pain, but no other chest pain. [facility] Medical History (Updated 12/20/22 @ 12:[address] 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 Home Medications alfuzosin 10 mg tablet,extended release 24 hr 10 mg PO DAILY 08/05/17 [History Last Taken Unknown] gabapentin 300 mg capsule 300 mg PO BIDCM 08/05/17 [History Last Taken Unknown] glimepiride 4 mg tablet 4 mg PO DAILY 08/05/17 [History Last Taken Unknown] meloxicam 15 mg tablet 15 mg PO DAILY 08/05/17 [History Last Taken Unknown] ergocalciferol (vitamin D2) 1,250 mcg (50,000 unit) capsule 50 unit PO DAILY 09/04/20 [History Last Taken Unknown] fish oil-dha-epa 1,200 mg-144 mg-216 mg capsule 1 cap PO DAILY 09/04/20 [History Last Taken Unknown] morphine 15 mg tablet,extended release 15 mg PO TID PRN PRN Pain Score 1-10 09/04/20 [History Last Taken Unknown] ondansetron 4 mg disintegrating tablet 4 mg PO Q8H PRN PRN Nausea #10 tabs 09/15/22 [Rx Last Taken Unknown] amoxicillin 875 mg-potassium clavulanate 125 mg tablet 875 mg PO Q12H #20 TABLETS 12/20/22 [Rx Last Taken Unknown] tramadol 50 mg tablet 50 mg PO Q4H PRN PRN Pain 2 days #10 tabs 12/20/22 [Rx Last Taken Unknown] Allergy/AdvReac Type Severity Reaction Status Date / Time hydrocodone [From Vicodin] Allergy Rash Verified 12/20/22 10:41 celecoxib [From Celebrex] AdvReac goofy Verified 12/20/22 10:41 Surgical History (Updated 12/20/22 @ 10:59 by Beti Galvan) H/O lithotripsy Social History Smoking Status: Current every day smoker tobacco type: cigarettes ROS ROS ED Constitutional Constitutional ED: Reports chills, fever(s) and subjective; Denies body ache(s) ENT ENT ED: Reports ear pain left, nasal congestion and rhinorrhea; Denies sore throat Cardiovascular Cardiovascular: Denies chest pain, leg edema or palpitations Respiratory/Chest Respiratory/Chest: Reports cough, dyspnea, dyspnea on exertion and sputum Gastrointestinal Gastrointestinal: Denies abdominal pain, diarrhea, nausea or vomiting Genitourinary Genitourinary ED: Denies dysuria or hematuria Musculoskeletal Musculoskeletal: Denies myalgias or neck pain Integumentary Denies abscess or rash Neurologic Neurologic: Denies headache(s), paresthesias or weakness Psychiatric Psychiatric: Denies depression or suicidal thoughts Endocrine Endocrinology: Denies polydipsia or polyuria EXAM Physical Exam Const Vital Signs: 12/20/22 10:38 12/20/22 10:49 12/20/22 11:01 Temperature 97.5 F L 97.5 F L Temperature Source Temporal Temporal Pulse Rate 120 H 114 H Respiratory Rate 18 20 H Respiratory Effort Normal Non-Labored Respiratory Depth Normal Respiratory Pattern Normal Blood Pressure 141/77 H 147/85 H Blood Pressure Mean 98 105 Pulse Ox 97 96 Oxygen Delivery Method Room Air Room Air Room Air 12/20/22 11:16 12/20/22 12:14 12/20/22 12:14 Temperature 97.8 F 97.8 F Temperature Source Oral Oral Pulse Rate 108 H 102 H 102 H Respiratory Rate 17 13 13 Respiratory Effort Respiratory Depth Respiratory Pattern Blood Pressure 134/59 H 134/59 H Blood Pressure Mean 84 84 Pulse Ox 97 97 Oxygen Delivery Method Room Air Room Air Positive well nourished and well developed Constitutional Narrative: Well-appearing in no distress. General Appearance ED: well developed and NAD HEENT Reports moist mucous membranes HEENT Narrative: Right TM and EAC clear. Left TM is dulled, erythematous, the EAC is normal. normocephalic and atraumatic Throat: Negative for posterior oropharynx abnormal Eyes PERRL and EOMs intact bilaterally Neck no lymphadenopathy, supple, no meningeal signs and no JVD Resp normal respiratory effort and clear to auscultation bilaterally Resp Narrative: Pleasant, conversive in full sentences without any distress Cardio no murmurs Rate: regular rate and tachycardic Rhythm: regular rhythm Back/Spine no CVA tenderness and normal to inspection Neuro oriented x3, CN's II-XII intact bilaterally and no sensory deficits noted Sensorium / Orientation: alert Gait (Neuro): normal gait Motor Exam: strength 5/5 throughout Psych mental status grossly normal Skin Lesions: no lesions Rashes: no rashes MDM MDM MDM Narrative Medical decision making narrative: Patient is feeling a little better after nebulizer treatment, and he does have an albuterol inhaler at home. Chest x-ray 2 views of my interpretation does not show pneumonia, there appears to be streaky abnormalities consistent with bronchitis on my interpretation. Still awaiting for the radiologist to interpret the film, but the patient would not like to wait any longer. Antibiotic is indicated at least for the otitis media, he understands that it may not fix his bronchitis if it is viral in etiology and he could have 2 different infections going on. At this time he is not hypoxic, stable for discharge home. I do not think he needs any steroids right now since he does not have a history of asthma or COPD. Given some tramadol for the pain in his ear. Lab Data Attestation: I reviewed the patient's lab results. Labs: Laboratory Results - last 24 hr 12/20/22 12:12 POC Glucose 250 H Radiography Chest X-Ray - ED: 2 View, Read by ED Physician, No Acute Disease, Chronic Changes and No Infiltrates Rhythm Strip Rhythm Strip: Sinus Tach Rate: 110 Ectopy: None Discharge Plan Triage Chief Complaint: Shortness of Breath Other Complaint: Cough ED Provider: Stiven Flores Dx/Rx/DC Orders Clinical Impression: Acute left otitis media, Acute bronchitis Instructions: Acute Bronchitis, ED Otitis Media Antibiotic ... Prescriptions: New tramadol 50 mg tablet 50 mg PO Q4H PRN PRN (Reason: Pain) 2 Days Qty: 10 0RF amoxicillin-pot clavulanate [amoxicillin-pot clavulanate] 875-125 mg tablet 875 mg PO Q12H Qty: 20 0RF No Action meloxicam 15 MG tablet 15 mg PO DAILY glimepiride 4 MG tablet 4 mg PO DAILY gabapentin 300 MG capsule 300 mg PO BIDCM alfuzosin 10 MG tablet extended release 24 hr 10 mg PO DAILY ergocalciferol (vitamin D2) 50,000 UNIT capsule 50 unit PO DAILY fish oil-dha-epa 1 EACH capsule 1 cap PO DAILY morphine 15 MG tablet extended release 15 mg PO TID PRN PRN (Reason: Pain Score 1-10) ondansetron [ondansetron] 4 MG tablet 4 mg PO Q8H PRN PRN (Reason: Nausea) Qty: 10 0RF Primary Care Provider: Jennifer Lobo Referrals: Jennifer Lobo DO [Primary Care Provider] - 3-5 Days if not improving Disposition Disposition: Home, Self Care
[2022-12-20 11:01] VITALS: O2SAT 96
[2022-12-20 11:16] VITALS: PULSE 108; RESP 17
[2022-12-20] MEDS: Albuterol 2.5 MG/3 ML VIAL.NEB. INHALATION (11:16)
--- NOTE | 2022-12-20 12:00 | RAD_ITS ---
INDICATION: cough, shortness of breath EXAMINATION/TECHNIQUE: X-RAY - XR Chest 2 Views COMPARISON: None. FINDINGS: LINES/DEVICES: None. LUNGS: The lungs are hyperinflated. MEDIASTINUM AND CARDIOVASCULAR STRUCTURES: Cardiac silhouette not enlarged. Central airways and mediastinal contour are unremarkable. BONES AND SOFT TISSUES: Unremarkable. RAD/Chest PA and Lateral IMPRESSION: Hyperinflated lungs. Electronically Signed: Luciana Ibarra MD at 12:33 EST ,
[2022-12-20 12:14] VITALS: BP 134/59; PULSE 102; RESP 13; TEMP 36.6; O2SAT 97
[2022-12-20 12:31] LABS: Bedside Glucose 250 mg/dL (74-106)
[2022-12-20 12:55] VITALS: BP 130/60; PULSE 115; RESP 20; O2SAT 97
[2022-12-20] MEDS: traMADol 50 MG Tablet PO (13:01)
[2022-12-20] MEDS: Amox/Clavulanate 875 MG Tablet PO (13:02)
== END 2022-12-20 13:05 | disposition home or self-care (01) ==
PROVIDERS: Emergency Provider Emergency Medicine; PCP Family Medicine; Visit Provider Emergency Medicine
DX: J20.9 Acute bronchitis, unspecified (principal); H91.92 Unspecified hearing loss, left ear; R07.81 Pleurodynia; H66.92 Otitis media, unspecified, left ear; F17.210 Nicotine dependence, cigarettes, uncomplicated
CPT/HCPCS: 71046; 82962; 94640; 99283

== ENCOUNTER → 2024-03-21 | Outpatient (CLI) | payer OTHER, SELFPAY ==
--- NOTE | 2024-03-21 10:25 | RAD_ITS ---
STUDY: X-RAY CHEST REASON FOR EXAM: Male, 73 years old. Evaluate for pneumonia. TECHNIQUE: Frontal and lateral views of the chest. COMPARISON: December 20, 2022 FINDINGS: Stable hyperinflation. There is no demonstrated pleural abnormality. Borderline cardiomegaly unchanged. Normal mediastinum and nixon. Normal visualized pulmonary arteries. Stable aortic tortuosity with calcification. Osteopenia with moderate thoracic spondylosis, unchanged. Normal visualized ribs, clavicles, and shoulders. No abnormality of the visualized soft tissue structures of the upper abdomen. RAD/Chest PA and Lateral IMPRESSION: Stable underlying cardiomegaly with hyperinflation. No active or acute cardiopulmonary disease. Electronically Signed: Nelson Roberts MD at 11:00 EDT ,
== END | disposition home or self-care (01) ==
LOC: PSN 10:19
PROVIDERS: Referring Provider Chiropractor; Visit Provider Chiropractor
DX: J18.9 Pneumonia, unspecified organism (principal); J44.0 Chronic obstructive pulmonary disease with (acute) lower respiratory infection
CPT/HCPCS: 71046; 94060; 94726; 94729

== ENCOUNTER → 2024-04-11 | Outpatient (CLI) | payer MEDICARE, OTHER, SELFPAY ==
--- NOTE | 2024-04-11 10:21 | RAD_ITS ---
STUDY: X-RAY - ABDOMEN/PELVIS REASON FOR EXAM: Male, 73 years old. Generalized abdominal pain. TECHNIQUE: Single AP view of the abdomen / pelvis. COMPARISON: None. FINDINGS: Normal bowel gas pattern with air seen to the rectum. Moderate to marked amount of feces in the colon. Intra-abdominal outlines mostly obscured by overlying bowel gas and feces. Normal soft tissue structures. Normal visualized osseous structures. RAD/Abdomen Single View IMPRESSION: No acute abnormality of the visualized abdomen or pelvis. Electronically Signed: Nelson Roberts MD at 9:27 EDT ,
== END | disposition home or self-care (01) ==
LOC: RAD 10:20
PROVIDERS: Referring Provider Urology; Visit Provider Urology
DX: R10.84 Generalized abdominal pain (principal)
CPT/HCPCS: 74018

== ENCOUNTER → 2024-04-18 | Outpatient (CLI) | payer MEDICARE, OTHER, SELFPAY ==
--- NOTE | 2024-04-18 11:05 | RAD_ITS ---
STUDY: X-RAY - LUMBAR SPINE REASON FOR EXAM: Male, 73 years old. Radiculopathy. TECHNIQUE: 3 view(s) of the lumbar spine were obtained. COMPARISON: None FINDINGS: Osteopenia. Normal lumbar lordosis. No scoliosis. 2 mm of anterolisthesis of L4 on L5 and 4 mm of anterolisthesis of L5 on S1. Endplate concavities of the vertebral bodies compatible with osteoporosis. Intervertebral disc space narrowing most marked at L3-4 and L5-S1 with osteophytes most marked at L3-4. Marked vascular calcification. RAD/Lumbar Spine 2 or 3 Views IMPRESSION: Osteopenia with lower thoracic and lumbosacral spondylosis as described. No acute abnormality or erosive changes. Electronically Signed: Nelson Roberts MD at 10:34 EDT ,
== END | disposition home or self-care (01) ==
LOC: RAD 11:00
PROVIDERS: Referring Provider Anesthesiology Pain Medicine; Visit Provider Anesthesiology Pain Medicine
DX: M54.17 Radiculopathy, lumbosacral region (principal)
CPT/HCPCS: 72100

== ENCOUNTER → 2024-09-26 | Outpatient (CLI) | payer MEDICARE, OTHER, SELFPAY ==
--- NOTE | 2024-09-26 07:21 | MRI_ITS ---
HISTORY: RT FOOT DROP, low back pain without injury. TECHNIQUE: Multiplanar and multisequence MR images of the lumbar spine were obtained without intravenous contrast. 150 images. COMPARISON: XR 04/18/2024. FINDINGS: VERTEBRAE: Vertebral body heights maintained. Mild degenerative endplate changes with a Schmorl''s node at the L3 inferior endplate. No significant bone marrow signal abnormality. ALIGNMENT: No anterior or posterior subluxation. CONUS: Normal morphology and position of the conus medullaris at L1-2. INTERVERTEBRAL DISCS: T12-L1: No significant signal abnormality, posterior disc protrusion, central canal stenosis, or foraminal narrowing based on the sagittal images. L1-2: No significant signal abnormality, posterior disc protrusion, central canal stenosis, or foraminal narrowing. L2-3: Minimal disc bulge and facet arthropathy without significant central canal stenosis. Mild left foraminal narrowing. L3-4: Minimal disc bulge and facet arthropathy resulting in mild bilateral foraminal narrowing and no significant central canal stenosis. L4-5: Minimal disc bulge and moderate facet arthropathy resulting in mild bilateral foraminal narrowing and no significant central canal stenosis. L5-S1: No significant posterior disc protrusion or central canal stenosis. Moderate facet arthropathy with mild bilateral foraminal narrowing. SOFT TISSUES: No paraspinal fluid collection. Mild subcutaneous edema posterior to the sacrum. Bilateral renal cysts measuring up to 2.6 cm on the right. MRI/Spine Lumbar (Routine) IMPRESSION: Very mild degenerative change of the lumbar spine without significant spinal canal stenosis. Mild bilateral foraminal narrowing as above. Electronically Signed: Gabriela Brown MD at 14:40 EST ,
== END | disposition home or self-care (01) ==
PROVIDERS: Referring Provider Clinical Nurse Specialist Adult Health; Visit Provider Clinical Nurse Specialist Adult Health
DX: M21.961 Unspecified acquired deformity of right lower leg (principal)
CPT/HCPCS: 72148

== ENCOUNTER → 2025-01-01 | Outpatient (CLI) | payer MEDICARE, OTHER, SELFPAY ==
[2025-01-01 13:15] LABS: PSA,Total - Annual Screen 0.25 ng/mL (0.02-4.00)
== END | disposition home or self-care (01) ==
LOC: LAB 11:33
PROVIDERS: Referring Provider Nurse Practitioner; Visit Provider Nurse Practitioner
DX: Z12.5 Encounter for screening for malignant neoplasm of prostate (principal)
CPT/HCPCS: 36415; 84153; G0103

== ENCOUNTER → 2025-01-02 | Outpatient (CLI) | payer MEDICARE, OTHER, SELFPAY ==
--- NOTE | 2025-01-02 13:22 | CT_ITS ---
PROCEDURE: ABDOMEN/PELVIS WITHOUT CONT REASON FOR EXAM: 1 year history of dysuria. History of kidney stones. TECHNIQUE: Abdomen and pelvis CT without intravenous contrast. COMPARISON: Comparison is made with prior study dated September 15, 2022. FINDINGS: Coronary artery calcification. Lung bases: Stable mild degree of increased linear markings at the lung bases suggestive of scarring. Liver: Unremarkable. Gallbladder: The gallbladder is contracted. Spleen: Unremarkable. Pancreas: Unremarkable. Adrenals: Unremarkable. Kidneys: Stable 2 cm cyst in the anterior upper pole of the right kidney. Stable 2 mm calculus in the upper pole calyx of the right kidney. Stable small left parapelvic cyst. No evidence of obstructive uropathy. Bladder: Unremarkable. Calcification of the vas deferens. Small umbilical hernia containing fat. No evidence of hydronephrosis. Bowel: Colonic diverticulosis without diverticulitis. Appendix: Normal. Lymph nodes: No suspicious lymph node enlargement. Vasculature: Mild diffuse atherosclerotic calcifications are noted. Peritoneum / Retroperitoneum: No ascites. No free air. Bones: Degenerative changes of the spine. CT/Abdomen/Pelvis without Cont IMPRESSION: Nonobstructive right intrarenal calculus. Stable right renal cyst. One or more dose reduction techniques were used (e.g., Automated exposure contr ol, adjustment of the mA and/or kV according to patient size, use of iterative reconstruction technique). Reading Location: [place] [address]
== END | disposition home or self-care (01) ==
LOC: CT 13:20
PROVIDERS: Referring Provider Urology; Visit Provider Urology
DX: M54.9 Dorsalgia, unspecified (principal); R30.0 Dysuria; Z87.442 Personal history of urinary calculi
CPT/HCPCS: 74176

== ENCOUNTER → 2025-01-11 | Outpatient (CLI) | payer MEDICARE, OTHER, SELFPAY ==
--- NOTE | 2025-01-11 10:01 | NM_ITS ---
PROCEDURE: GASTRIC EMPTYING STUDY REASON FOR EXAM: PROLONGED FULLNESS TECHNIQUE: The patient ingested a mixture of 1 mCi of technetium sulfur colloid and oatmeal. A gastric emptying study was then obtained. RADIOPHARMACEUTICAL: 1 mCi of technetium labeled sulfur colloid. COMPARISON: None. FINDINGS: 72% of the radiopharmaceutical exited the stomach at 60 minutes. This is a normal study. NM/Gastric Emptying Study IMPRESSION: Normal gastric emptying examination. Reading Location: [place] [address]
== END | disposition home or self-care (01) ==
LOC: NM 09:56
DX: R13.10 Dysphagia, unspecified (principal); K21.00 Gastro-esophageal reflux disease with esophagitis, without bleeding; K22.2 Esophageal obstruction; K30 Functional dyspepsia
CPT/HCPCS: 78264; A9541

== ENCOUNTER → 2025-01-19 | Outpatient (CLI) | payer MEDICARE, OTHER, SELFPAY ==
--- NOTE | 2025-01-19 13:11 | SP.MBSS_ITS ---
Modified Barium Swallow Patient Information Study Date: 01/19/25 Study Time: 12:20 Direct Billable Minutes: 92 Total Minutes procedure & reportin Diagnosis: Dysphagia R13.10 Referring Physician: Luz Bacon Reason for Referral: Assess swallow function, assess risk for aspiration, and determine recommendations for least restrictive diet textures and compensatory strategies to facilitate safe po intake. Medical History: Patient was referred by Luz Bacon CNP at [facility]. Pt was recently seen for OV to manage dysphagia w/ hx of 2 prior EGDs w/ Dr. Mora with dilation of esophageal strictures (08/2020, 02/2022). During most recent EGD, he was told he had erosive esophagitis. He had a recent ED on visit 12/03/24 for complaints of food getting stuck. He is scheduled for repeat EGD 02/19/2025. He was referred for MBSS to further assess swallow function and determine any additional dysphagia interventions. He is also being considered for esophageal manometry. Patient reports difficulty swallowing >5 years. PNA during start of COVID. 2X/month he has difficulty clearing foods through his esophagus, but he feels his issue is getting worse. If liquid wash doesn't clear sensation of retention, he has to just wait. Carbonated liquid has regurgitated during liquid wash attempts (MANAGER [place] recommended trying a warm liquid). PMH: Traumatic amputation of ear and finger, Back pain, Arthritis, Kidney stones, CKD stage III, Delayed gastric emptying, DM. Current Diet Ordered: Regular / Thin liquids Dentition: Natural Teeth and Missing Teeth Mental Status: WNL Respiratory Status: Oxygenating on Room Air Penetration-Aspiration Scale Penetration-Aspiration Scale: OBJECTIVE ASSESSMENT OF SWALLOW FUNCTION (QUANTITATIVE ? PER TRIAL): PENETRATION / ASPIRATION SCALE (WARD): 1 = does not enter airway 2 = enters airway/above vocal folds/ejected 3 = enters airway/above vocal folds/not ejected 4 = enters airway/contacts vocal folds/ejected 5 = enters airway/contacts vocal folds/not ejected 6 = enters airway/below vocal folds/ejected 7 = enters airway/below vocal folds/not ejected despite effort 8 = enters airway/below vocal folds/no effort VIDEOFLOROSCOPIC SCALE SCORE (WARD): Grade I = aspiration of material that has penetrated into the laryngeal vestibule, intact cough reflex Grade II = aspiration < 10 % of the bolus, intact cough reflex Grade III = aspiration of < 10 % of the bolus, reduced cough reflex or aspiration of > 10 % of the bolus, intact cough reflex Grade IV = aspiration of > 10 % of the bolus, reduced cough reflex Penetration-Aspiration Scale Score Thin Liquid via teaspoon: Result: 5= enters airways/contacts vocal folds/not ejected Comment: Delayed throat clear = effective. Thin Liquid via teaspoon Trial 2: Result: 3= enters airways/above vocal folds/not ejected Thin Liquid via sequential sips: cup: Result: 5= enters airways/contacts vocal folds/not ejected Thin Liquid via large single sip: cup: Result: 3= enters airways/above vocal folds/not ejected Comment: Cued cough = effective Thin Liquid via small single sip: cup Effortful swallow: Result: 1= does not enter airway [place] Thick Liquid via small single sip: cup: Result: 3= enters airways/above vocal folds/not ejected Pudding via teaspoon: Result: 1= does not enter airway Comment: Esophageal screen = Complete clearance. 1/2 Cookie: Result: 1= does not enter airway Comment: Esophageal screen - Retention in the middle esophagus. Thin Liquid via single sip: straw Effortful swallow: Result: 3= enters airways/above vocal folds/not ejected Thin Liquid via small single sip: cup Other: Result: 2= enter airway/above vocal folds/ejected Comment: Cued 3-second prep and effortful swallow Thin Liquid via small single sip: cup Effortful swallow Trial 2: Result: 3= enters airways/above vocal folds/not ejected Comment: Trace silent post prandial aspiration of residues that had remained on vocal folds from previous trials Oral Phase Labial Seal: Interlabial escape, no progression to anterior lip Tongue Control During Bolus Hold: Posterior escape of greater than half of bolus Bolus Preparation/Mastication: Slow prolonged chewing/mashing with complete recollection Bolus Transport/Lingual Motion: Delayed initiation of tongue motion Oral Residue: Trace residue lining oral structures Pharyngeal Phase Initiation of Pharyngeal Swallow: Bolus head in pyriforms Soft Palate Elevation: Trace column of contrast/air between soft palate and pharyngeal wall Laryngeal Elevation: Partial superior movement thyroid cart/partial apprx aryt- epig petiole Anterior Hyoid Excursion: Partial anterior movement Epiglottic Movement: Complete inversion Laryngeal Vestibule Closure at Height of Swallow: Incomplete; narrow column of air/contrast in laryngeal vestibule Pharyngeal Stripping Wave: Present - diminished Pharyngoesophageal Segment Opening: Parital distension and partial duration; parital obstruction of flow Tongue Base Retraction: Narrow column of contrast between tongue base & post. pharyngeal wall Pharyngeal Residue: Trace residue within or on pharyngeal structures Esophageal Phase Esophageal Clearance: Esophageal retention Diagnosis/Impression Diagnosis: Mild-Moderate oropharyngeal dysphagia R13.12; Esophageal dysphagia R13.14 Impression: The oral phase is primarily marked by... -Premature posterior loss of >1/2 of liquid boluses to the pyriforms and even laryngeal vestibule with certain trials. -Delayed tongue motion for A-P transport. -Slow, but complete mastication. The pharyngeal phase is primarily marked by... -Delayed swallow onset. -Decreased airway closure due to decreased anterior hyoid excursion and laryngeal elevation. -Silent, trace post prandial aspiration of residues remaining in the laryngeal vestibule, likely thin liquid. Deep laryngeal penetration of thin liquids to the vocal folds with sips via tsp and sequential cup. Use of 3-second prep, no straws, and effortful swallows were all effective in reducing aspiration risk. Reflexive throat clear was effective in clearing trace barium on the vocal folds from thin by tsp. The esophageal phase is primarily marked by... -Trace retention in UES. -Retention of cookie in the middle esophagus, which required 2 liquid washes to clear. Recommendations Diet: Regular Textures and Thin Liquids Comment: STOP if liquid wash doesn't clear sensation of retention and wait for esophageal clearance. Compensatory Strategies: Small Bites, Small Sips (3-second prep, Effortful swallows), No Straws, Slow Rate, Alternate bites/solids and sips/liquids (1-2 sips after each bite of solids), Sitting upright and Remain sitting upright for 30 minutes after PO intake (30-60min after meals) Recommend Repeat Modified Barium Swallow: TBD Need for Skilled Speech Therapy Services: Yes Comment: -Train the patient in use of strategies to decrease risk for aspiration and reflux aspiration. -Ongoing assessment of diet tolerance of recommended textures. -Train the patient in oropharyngeal exercise program to improve bolus control, swallow onset, and airway closure (lingual resistance, Henna, Effortful). Recommended Referrals: GI Consult (Continue to follow w/ OP GI for management of dysphagia. Would NOT recommend barium esophagram due to aspiration risk.) Education Completed: 1. Described result of evaluation., 2. Pt understands evaluation & agrees with goals and treatment plan. and 7. Pt requires further education on strategies & risks. (Pt instructed in results and recommendations, would benefit from additional instruction re: no straws, 3-second prep as these were deemed beneficial to the patient upon further interpretation of the study.) Status Active ST Patient: Active Contact Information [facility] Speech Therapy:: Kathryn Montero M.A. [facility]-MANAGER [place]? Speech-Language Pathologist?? [facility] [address] [place] [address]? [email or web address]?? [phone]
== END | disposition home or self-care (01) ==
LOC: RAD 12:21
DX: R13.10 Dysphagia, unspecified (principal); K21.00 Gastro-esophageal reflux disease with esophagitis, without bleeding; K22.2 Esophageal obstruction; K30 Functional dyspepsia
CPT/HCPCS: 74230; 92611

== ENCOUNTER → 2025-02-06 | Outpatient (CLI) | payer MEDICARE, OTHER, SELFPAY ==
--- NOTE | 2025-02-06 12:05 | EKG12_ITS ---
Test Reason : PREOP Blood Pressure : */* mmHG Vent. Rate : 95 BPM Atrial Rate : 95 BPM P-R Int : 148 ms QRS Dur : 74 ms QT Int : 354 ms P-R-T Axes : 59 -5 30 degrees QTcB Int : 444 ms Normal sinus rhythm Inferior infarct , age undetermined Abnormal ECG Confirmed by Raymon Bhakta ([id number]), sound editor OLYA RODRÍGUEZ ([id number]) on 02/07/2025 10:03:43 AM Referred By: Yoana Figueroa Confirmed By: Raymon Bhakta
[2025-02-06 14:03] LABS: Absolute Lymphocyte Count 2.86 X10^3/uL (0.83-4.51); Absolute Neutrophil Count 5.1 X10^3/uL (2.0-7.7); Basophil# 0.07 X10^3/uL; Basophil% 0.8 % (0-1); Eosinophil# 0.32 X10^3/uL; Eosinophils% 3.6 % (0-5); Hematocrit 44.3 % (40-54); Hemoglobin 15.2 g/dL (13.0-16.5); Lymphocyte # 2.86 X10^3/ul (0.83-4.51); Lymphocyte % 31.7 % (19-41); Mean Corp Hgb Conc 34.3 g/dL (32-36); Mean Corpuscular Hgb 32.1 pg (27.0-32.0); Mean Corpuscular Volume 93.7 fL (80-94); Mean Platelet Vol. 10.3 fl (6.2-12.0); Monocyte# 0.64 X10^3/uL; Monocyte% 7.1 % (0-10); NRBC Flagged by Analyzer 0 % (0-5); Neutrophil # 5.08 X10^3/uL (2.7-7.7); Neutrophil % 56.4 % (47-70); Platelet Count 216 K/mm3 (150-450); RBC Distribution Width SD 48.6 fl (35.1-43.9); Red Blood Count 4.73 M/mm3 (4.6-6.2)
[2025-02-06 15:12] LABS: Anion Gap 12 (5-15); BUN 17 mg/dL (4-19); BUN/Creat Ratio 16.9 RATIO (10-20); Calcium,Total 8.9 mg/dL (7.6-11.0); Carbon Dioxide 21.3 mmol/L (21.0-32.0); Chloride 103 mmol/L (98-108); Creatinine, Serum 1.01 mg/dL (0.70-1.20); EST Glomerular Filtration Rate 79 (>60); Glucose 150 mg/dL (70-99); Potassium 4.7 mmol/L (3.3-5.1); Sodium Level 136 mmol/L (133-145)
== END | disposition home or self-care (01) ==
PROVIDERS: Referring Provider Physician Assistant Surgical; Visit Provider Physician Assistant
DX: Z01.818 Encounter for other preprocedural examination (principal)
CPT/HCPCS: 36415; 80048; 83036; 85025; 93005

== ENCOUNTER 2025-02-19 05:15 | Day surgery (SDC) | payer MEDICARE, OTHER, SELFPAY ==
--- NOTE | 2025-02-14 15:18 | PAT.ANESEVAL ---
Pre-Assessment Diagnosis/Proposed Procedure Planned Operative Procedure(s): EGD Anesthesia History Anesthesia History - oracle hrms consultant: Anesthesia History - oracle hrms consultant Hx Hospitalization No 02/14/25 14:42 Any Problems With Anesthesia No 02/14/25 14:42 Cholinesterase deficiency No 02/14/25 14:42 You/Your Family Experience No 02/14/25 14:42 fever (hyperthermia) with Relationship Recent Exposure to Contagious No 09/05/20 20:30 Disease Does patient have nerve No 02/14/25 14:42 stimulator Patient instructed to have device shut off --Does patient have Pacemaker or ICD? When Was Last Pacemaker Check QUESTION #4 FULL TEXT: You/Your Family Experience fever (hyperthermia) with Anesthesia Last Oral Intake Last Oral intake: Last Oral Intake NPO since Meds taken in AM with sips of water? Meds patient instructed to take am of surgery PONV PONV - oracle hrms consultant: PONV - oracle hrms consultant Female No 02/14/25 14:42 HX of Motion Sickness No 02/14/25 14:42 HX of N/V After Surgery No 02/14/25 14:42 Non-Smoker No 02/14/25 14:42 Duration of Surgery greater No 02/14/25 14:42 than 60 minutes Number of Risk Factors PONV Score Height & Weight Height & Weight: Anesthesia: Height & Weight Height 6 ft 12/25/24 13:03 Respiratory Assessment Respiratory Assessment - oracle hrms consultant: Respiratory Tract Infection Hx - oracle hrms consultant Hx Respiratory Tract Infection No 02/14/25 14:42 STOP Sleep Apnea STOP Sleep Apnea - oracle hrms consultant: STOP Sleep Apnea - oracle hrms consultant Hx Hypertension No 02/14/25 14:42 Hx Sleep Apnea No 02/14/25 14:42 CPAP No 09/06/20 16:47 BIPAP No 09/05/20 20:30 Do you snore loudly (louder No 02/14/25 14:42 than talking or can be heard Do you often feel tired/ No 02/14/25 14:42 fatigued/ sleepy during daytime? Has anyone observed you stop No 02/14/25 14:42 breathing during sleep? STOP Results Negative 02/14/25 14:42 QUESTION #5 FULL TEXT : Do you snore loudly (louder than talking or can be heard through closed doors)? Tobacco Use History Tobacco Use History - oracle hrms consultant: Tobacco Use History - oracle hrms consultant Tobacco Use Cigarettes 09/04/20 14:54 Smoking Status Current every day smoker 02/14/25 14:42 Hx Tobacco Use Yes 02/14/25 14:42 Years Smoking Packs Smoked per Day Smoking Cessation Date was within the last 15 years Hx Smoking Cessation Date Hx Smoking Cessation Counseling Hematologic Medial History Hematologic Hx - oracle hrms consultant: Hematologic Medical Hx - rn clinical documentation Hx of Blood Transfusion No 02/14/25 14:42 Hx of Transfusion in last 3 No 02/14/25 14:42 Months Date of Last Transfusion (if within last 3 months) Ever experience any problems No 02/14/25 14:42 with transfusion(s)? Specify any problems Hx of Preganancy in last 3 N/A 02/14/25 14:42 Months Nurse Filling Out Transfusion VLEHMAN 02/14/25 14:42 & Questions: Date: 02/14/25 02/14/25 14:42 Time: 14:52 02/14/25 14:42 Patient unable to answer at this time (ie. confused, unrespo /Reproduction History /Reproductive History - oracle hrms consultant: /Reproductive Hx- oracle hrms consultant Hx Now No 02/14/25 14:42 Gestational Age (in weeks): EDC: Hx Hx Para Hx Section SAB PFSH Medical History (Updated 02/14/25 @ 14:51 by Latha Daly) Wears partial dentures Wears glasses Anxiety Depression History of steroid therapy Ambulates with cane History of renal disease Fatty liver Migraine headache Dietary restriction Gastric reflux Smoker History of echocardiogram History of stress test Traumatic amputation of ear Finger amputation, traumatic Enlarged prostate Back pain Arthritis Kidney stones Home Medications ?Medication ?Instructions ?Recorded ?Last Taken ?Type alfuzosin 10 mg tablet,extended 10 mg PO DAILY 08/05/17 Unknown History release 24 hr gabapentin 300 mg capsule 300 mg PO BIDCM 08/05/17 Unknown History glimepiride 4 mg tablet 4 mg PO DAILY 08/05/17 Unknown History meloxicam 15 mg tablet 15 mg PO DAILY 08/05/17 Unknown History fish oil-dha-epa 1,200 mg-144 1 cap PO DAILY 09/04/20 Unknown History mg-216 mg capsule morphine 15 mg tablet,extended 15 mg PO TID PRN PRN Pain Score 09/04/20 Unknown History release 1-10 ondansetron 4 mg disintegrating 4 mg PO Q8H PRN PRN Nausea #10 tabs 09/15/22 Unknown Rx tablet aspirin 81 mg tablet,delayed 81 mg PO QDAY 12/18/24 Unknown History release (Adult Aspirin Regimen) cholecalciferol (vitamin D3) 50 50 mcg PO QDAY 12/18/24 Unknown History mcg (2,000 unit) capsule empagliflozin 25 mg tablet 25 mg PO QDAY 12/18/24 Unknown History hydroxyzine pamoate 25 mg capsule 25 mg PO QDAY PRN anxiety 12/18/24 Unknown History pantoprazole 40 mg tablet,delayed 40 mg PO BID #60 tabs 12/18/24 Unknown Rx release docusate sodium 100 mg capsule 100 mg PO BID 02/14/25 Unknown History (Colace) psyllium husk 3.4 gram/5.4 gram 1 tbsp PO DAILY 02/14/25 Unknown History oral powder (Metamucil) Allergy/AdvReac Type Severity Reaction Status Date / Time hydrocodone (From Vicodin) Allergy Rash Verified 02/14/25 14:36 celecoxib (From Celebrex) AdvReac goofy Verified 02/14/25 14:36 Surgical History (Updated 02/14/25 @ 14:43 by Latha Daly) History of rotator cuff surgery H/O lithotripsy Social History Smoking Status: Current every day smoker tobacco type: cigarettes alcohol intake: never substance use type: does not use Audit: Pertinent Findings Pertinent Findings EKG Perinent findings: 02/06/2025. Normal sinus rhythm 95 bpm inferior infarct, age undetermined Pulmonary function results/spirometer pertinent findings: Chest x-ray 03/21/2024. Stable underlying cardiomegaly with hyperinflation. No active or acute cardiopulmonary disease Recommendation Anesthesia Recommendation Anesthesia recommendation: OPTIMIZED for anesthesia
[2025-02-19] VITALS (7 sets, daily range): BP systolic 101–121; BP diastolic 63–72; PULSE 87–99; RESP 16; TEMP 36.6; O2SAT 93–99; BMI 25.2
[2025-02-19 06:07] LABS: Bedside Glucose 132 mg/dL (74-106)
[2025-02-19] MEDS: Lactated Ringers 1,000 ML 15 ML IV (06:14)
--- NOTE | 2025-02-19 06:30 | EGD_PTH ---
PATIENT: ALEXIS LYLES LOC: EN U#:[id number] AGE/SX: 74/M ROOM: RE02/19/[address]: Dr. Tonio Rogers DO : 1950 BED: DIS: 02/19/2025 SPEC #: [id number] RECD: 02/19/25 11:10 STATUS: EFRAIN REEsha #: [id number] LILIBETH: 02/19/25 06:[address]: Tonio Roegrs DEPT: SURGICAL PATHOLOGY RECD BY: Shamar Majano ENTERED: 02/19/25 11:11 SP TYPE: EGD BIOPSY OT DR: [facility] Tissues: A - Esophagus, NOS Procedures: Immunohistochemical Stains Special Stain Group I Surgery Specimen Level IV GMS Stain (control) HEADER OPERATION: EGD with biopsy and dilation PRE-OP DIAGNOSIS: Delayed gastric emptying, esophageal stricture, reflux esophagitis, dysphagia TISSUE SUBMITTED: A- Distal esophagus biopsy MICROSCOPIC DIAGNOSIS A. Esophagus, distal, biopsy: Squamous mucosa with reactive changes and mild acute inflammation - see note. Columnar mucosa, negative for goblet cell metaplasia. Note: PASD stain highlights rare extracellular fungal organisms favoring contamination. MICROSCOPIC DESCRIPTION Slides are reviewed. All matched controls reacted appropriately. These tests were developed and their performance characteristics determined by [facility]. They may not have been cleared or approved by the U.S. Food and Drug Administration. The FDA has determined that such clearance or approval is not necessary. The above immunohistochemical/dualISH markers are ordered and reviewed by the Pathologist. GROSS DESCRIPTION A. Received in formalin in a container labeled with the patient's name, date of , and distal esophagus biopsy are multiple cunningham-pink fragments of mucosal tissue measuring 1.0 x 0.8 x 0.3 cm in aggregate. Submitted in toto in A1. [facility] 02-19-2025 CPT:87140, 05096
--- NOTE | 2025-02-19 06:45 | PCM.HP.STD ---
HPI - General General Date of Admission: 02/19/25 Date of Service: 02/19/25 Chief Complaint: dysphagia HPI Narrative ALEXIS LYLES, is a 74 M who presents to the office today for establishment with [facility] for difficulty swallowing with a history having 2 prior EGDs with dilation of esophageal strictures, one in August 2020 and second in February [address] Mora and was told he had erosive esophagitis. He had a recent ED on visit 12/03/24 for complaints of food getting stuck, a piece of steak lodged in lower chest/upper abdomen, it felt like I was choking, but I could breathe. No treatments were required during ED visit as the food bolus advanced on its own, they did increase his pantoprazole to 40mg twice daily. He reports much less reflux and difficulty swallowing since increasing the pantoprazole and recommending a soft diet. He is a 1ppd smoker, denies use of alcohol, and has exposure to questionable drinking water at [employer] asbestos and [employer] [place]. He reports some difficulty chewing due to poor dentition and missing teeth, frequent throat clearing with phlegm, and feels like food comes up with a belch, and constipation. He states that he feels that whatever he eats doesn't leave his stomach like it should. He denies early satiety or reduced appetite. He states his stools have varying calibers, ranging from bullet-sized to lund, and strains with each. PCP has him taking Metamucil several times a day and he feels like that's finally starting to work. He denies heartburn, nausea, emesis, abdominal bloating and pain, excessive belching and flatulence, diarrhea, hematochezia, and melena. He states that his last colonoscopy was in 2022, no abnormalities found and was told to repeat in 10 years. [facility] Medical History Wears partial dentures Wears glasses Anxiety Depression History of steroid therapy Ambulates with cane History of renal disease Fatty liver Migraine headache Dietary restriction Gastric reflux Smoker History of echocardiogram History of stress test Traumatic amputation of ear Finger amputation, traumatic Enlarged prostate Back pain Arthritis Kidney stones Home Medications ?Medication ?Instructions ?Recorded ?Last Taken ?Type alfuzosin 10 mg tablet,extended 10 mg PO DAILY 08/05/17 02/18/25 History release 24 hr gabapentin 300 mg capsule 300 mg PO BIDCM 08/05/17 02/18/25 History glimepiride 4 mg tablet 4 mg PO DAILY 08/05/17 02/18/25 History meloxicam 15 mg tablet 15 mg PO DAILY 08/05/17 02/15/25 History fish oil-dha-epa 1,200 mg-144 1 cap PO DAILY 09/04/20 02/15/25 History mg-216 mg capsule morphine 15 mg tablet,extended 15 mg PO TID 09/04/20 02/18/25 History release ondansetron 4 mg disintegrating 4 mg PO Q8H PRN PRN Nausea #10 tabs 09/15/22 Unknown Rx tablet aspirin 81 mg tablet,delayed 81 mg PO QDAY 12/18/24 02/15/25 History release (Adult Aspirin Regimen) cholecalciferol (vitamin D3) 50 50 mcg PO QDAY 12/18/24 02/18/25 History mcg (2,000 unit) capsule empagliflozin 25 mg tablet 25 mg PO QDAY 12/18/24 02/15/25 History hydroxyzine pamoate 25 mg capsule 25 mg PO QDAY PRN anxiety 12/18/24 Unknown History pantoprazole 40 mg tablet,delayed 40 mg PO BID #60 tabs 12/18/24 02/15/25 Rx release docusate sodium 100 mg capsule 100 mg PO BID 02/14/25 02/18/25 History (Colace) psyllium husk 3.4 gram/5.4 gram 1 tbsp PO DAILY 02/14/25 02/18/25 History oral powder (Metamucil) acetaminophen 500 mg/15 mL oral 500 mg PO Q4H PRN pain 02/19/25 02/18/25 History liquid Allergy/AdvReac Type Severity Reaction Status Date / Time hydrocodone (From Vicodin) Allergy Rash Verified 02/19/25 05:51 celecoxib (From Celebrex) AdvReac goofy Verified 02/19/25 05:51 Surgical History History of rotator cuff surgery H/O lithotripsy Social History Smoking Status: Current every day smoker tobacco type: cigarettes alcohol intake: never substance use type: does not use ROS Constitutional Constitutional: Denies fatigue, fever(s), poor appetite, weight gain or weight loss Gastrointestinal Gastrointestinal: Denies belching, bloating, change in bowel habits, change in stool character, chewing difficulty, coffee ground emesis, constipation, cramping, diarrhea, dyspepsia, dysphagia, early satiety, excessive flatus, fecal incontinence, heartburn, hematemesis, hematochezia, hemorrhoids, loose stools, melena, nausea, odynophagia, rectal bleeding, tenesmus, vomiting or weight changes Vital Signs Vital Signs Vital Signs: 02/19/25 06:00 02/19/25 06:01 Temperature 97.8 F Temperature Source Temporal Pulse Rate 87 Respiratory Rate 16 Respiratory Pattern Normal Blood Pressure 121/67 H Blood Pressure Mean 85 Blood Pressure Source Monitor Blood Pressure Position Semi-Fowlers Blood Pressure Location Left Arm Pulse Ox 97 Oxygen Delivery Method Room Air Weight Weight: 191 lb 9.6 oz Body Mass Index (BMI) 25.2 Physical Exam Const alert, oriented x3, no apparent distress and healthy appearing General Appearance: cooperative GI normal to inspection, nondistended, normoactive bowel sounds, soft to palpation, non-tender and non-distended Percussion: normal to percussion Rectal Exam: deferred Results Lab / Micro Data Labs: Laboratory Results - last 24 hr 02/19/25 05:49: POC Glucose 132 H Assessment & Plan Assessment/Plan (1) Delayed gastric emptying: (2) Esophageal stricture: (3) Reflux esophagitis: QUALIFIERS: Esophagitis bleeding: unspecified whether hemorrhage Qualified Code(s): K21.00 - Gastro-esophageal reflux disease with esophagitis, without bleeding (4) Dysphagia: QUALIFIERS: Dysphagia type: unspecified Qualified Code(s): R13.10 - Dysphagia, unspecified PLAN: Assessment and Plan Assessment and Plan (1) Dysphagia: Status: Acute Qualifiers: Dysphagia type: unspecified Qualified Code(s): R13.10 - Dysphagia, unspecified (2) Reflux esophagitis: Status: Acute Qualifiers: Esophagitis bleeding: unspecified whether hemorrhage Qualified Code(s): K21.00 - Gastro-esophageal reflux disease with esophagitis, without bleeding (3) Esophageal stricture: Status: Acute (4) Delayed gastric emptying: Status: Acute Orders: Orders Gastric Emptying Study Today K21.00 - Gastro-esophageal reflux disease with esophagitis, without bleeding, K22.2 - Esophageal obstruction, K30 - Functional dyspepsia, R13.10 - Dysphagia, unspecified Swallowing Function w/Video Today K21.00 - Gastro-esophageal reflux disease with esophagitis, without bleeding, K22.2 - Esophageal obstruction, K30 - Functional dyspepsia, R13.10 - Dysphagia, unspecified Medications: New pantoprazole 40 mg PO BID 60 tabs 2RF Discontinued amoxicillin-pot clavulanate 875-125 mg Discontinued Reason: Order Completed 875 mg PO Q12H 20 TABLETS 0RF Plan ALEXIS LYLES, is a 74 M who presents to the office today for establishment with [facility] for difficulty swallowing with a history having 2 prior EGDs with dilation of esophageal strictures, one in August 2020 and second in February [address] Mora and was told he had erosive esophagitis. He had a recent ED on visit 12/03/24 for complaints of food getting stuck. Differential diagnoses include: dysphagia, achalasia, esophageal stricture, GERD, gastroparesis secondary to DM, slow transit constipation. Discussed care plan with him. schedule EGD for evaluation barium swallow w/video to evaluate dysphagia phase GET for delayed gastric emptying continue pantoprazole 40mg PO twice daily, on empty stomach before breakfast and dinner consider esophageal manometry office FU to review testing results
--- NOTE | 2025-02-19 06:46 | PCM.PRE.AN2 ---
ASA Classification* ASA Classification ASA Classification: 2 Assessment & Plan Anesthesia* Anesthesia Assessment Anesthesia Assessment: Discussed sedation and/or anesthesia options, risks, benefits, and alternatives with patient/parents/legal guardian/POA. Questions invited. The patient/parents/legal guardian/POA seems to understand and agrees to proceed with anesthesia plan. Reviewed the physical assessment, medical history, allergy history and patient home medications list prior to surgery/procedure/anesthetic and documented any changes. Performed airway and anesthesia risk assessments. Anesthesia Type Anesthesia Type: MAC Anesthesia Focused Assessment* Temperature: 97.8 F Pulse Rate: 87 Blood Pressure: 121/67 Respiratory Rate: 16 Pulse Ox: 97 Airway Assessment Mouth opens: >3 cm Mallampati Score: II Focused Labs Anesthesia Preop lab: CBC WBC 9.0 K/mm3 (4.4-11.0) 02/06/25 12:47 02/06/25 RBC 4.73 M/mm3 (4.6-6.2) 02/06/25 12:47 02/06/25 Hgb 15.2 g/dL (13.0-16.5) 02/06/25 12:47 02/06/25 Hct 44.3 % (40-54) 02/06/25 12:47 02/06/25 Plt Count 216 K/mm3 (150-450) 02/06/25 12:47 02/06/25 CHEMISTRY Potassium 4.7 mmol/L (3.3-5.1) 02/06/25 12:47 02/06/25 Sodium 136 mmol/L (133-145) 02/06/25 12:47 02/06/25 BUN 17 mg/dL (4-19) 02/06/25 12:47 02/06/25 Creatinine 1.01 mg/dL (0.70-1.20) 02/06/25 12:47 02/06/25 Glucose 150 mg/dL (70-99) H 02/06/25 12:47 02/06/25 POC Glucose 132 mg/dL (74-106) H 02/19/25 05:49 02/19/25 COAG Pre-Assessment Diagnosis/Proposed Procedure Planned Operative Procedure(s): EGD Anesthesia History 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 When Was Last Pacemaker Check QUESTION #4 FULL TEXT: You/Your Family Experience fever (hyperthermia) with Anesthesia Last Oral Intake Last Oral intake: Last Oral Intake NPO since 22:30 02/19/25 06:01 Meds taken in AM with sips of No 02/19/25 06:01 water? Meds patient instructed to take am of surgery PONV PONV - tug boat engineer: PONV - tug boat engineer Female No 02/14/25 14:42 HX of Motion Sickness No 02/14/25 14:42 HX of N/V After Surgery No 02/14/25 14:42 Non-Smoker No 02/14/25 14:42 Duration of Surgery greater No 02/14/25 14:42 than 60 minutes Number of Risk Factors PONV Score Height & Weight Height & Weight: Anesthesia: Height & Weight Height 6 ft 1 in 02/19/25 06:01 Weight: 86.908 kg 02/19/25 06:01 Body Mass Index (BMI) 25.2 02/19/25 06:01 Respiratory Assessment Respiratory Assessment - tug boat engineer: Respiratory Tract Infection Hx - tug boat engineer Hx Respiratory Tract Infection No 02/14/25 14:42 STOP Sleep Apnea STOP Sleep Apnea - tug boat engineer: STOP Sleep Apnea - tug boat engineer Hx Hypertension No 02/14/25 14:42 Hx Sleep Apnea No 02/14/25 14:42 CPAP No 09/06/20 16:47 BIPAP No 09/05/20 20:30 Do you snore loudly (louder No 02/14/25 14:42 than talking or can be heard Do you often feel tired/ No 02/14/25 14:42 fatigued/ sleepy during daytime? Has anyone observed you stop No 02/14/25 14:42 breathing during sleep? STOP Results Negative 02/14/25 14:42 QUESTION #5 FULL TEXT : Do you snore loudly (louder than talking or can be heard through closed doors)? Tobacco Use History Tobacco Use History - tug boat engineer: Tobacco Use History - tug boat engineer Tobacco Use Cigarettes 09/04/20 14:54 Smoking Status Current every day smoker 02/14/25 14:42 Hx Tobacco Use Yes 02/14/25 14:42 Years Smoking Packs Smoked per Day Smoking Cessation Date was within the last 15 years Hx Smoking Cessation Date Hx Smoking Cessation Counseling Hematologic Medial History Hematologic Hx - tug boat engineer: Hematologic Medical Hx - guest services Hx of Blood Transfusion No 02/14/25 14:42 Hx of Transfusion in last 3 No 02/14/25 14:42 Months Date of Last Transfusion (if within last 3 months) Ever experience any problems No 02/14/25 14:42 with transfusion(s)? Specify any problems Hx of Preganancy in last 3 N/A 02/14/25 14:42 Months Nurse Filling Out Transfusion VLEHMAN 02/14/25 14:42 & Questions: Date: 02/14/25 02/14/25 14:42 Time: 14:52 02/14/25 14:42 Patient unable to answer at this time (ie. confused, unrespo /Reproduction History /Reproductive History - tug boat engineer: /Reproductive Hx- tug boat engineer Hx Now No 02/14/25 14:42 Gestational Age (in weeks): EDC: Hx Hx Para Hx Section SAB Active Medications Active Medications: Current Medications Generic Name Dose Route Start Last Admin Trade Name Freq PRN Reason Stop Dose Admin Lactated Ringer's 1,000 mls @ 15 mls/hr 02/19/25 06:15 02/19/25 06:14 IV 15 mls/hr .Q48H GEORGETTE Administration PFSH Medical History Wears partial dentures Wears glasses Anxiety Depression History of steroid therapy Ambulates with cane History of renal disease Fatty liver Migraine headache Dietary restriction Gastric reflux Smoker History of echocardiogram History of stress test Traumatic amputation of ear Finger amputation, traumatic Enlarged prostate Back pain Arthritis Kidney stones Home Medications ?Medication ?Instructions ?Recorded ?Last Taken ?Type alfuzosin 10 mg tablet,extended 10 mg PO DAILY 08/05/17 02/18/25 History release 24 hr gabapentin 300 mg capsule 300 mg PO BIDCM 08/05/17 02/18/25 History glimepiride 4 mg tablet 4 mg PO DAILY 08/05/17 02/18/25 History meloxicam 15 mg tablet 15 mg PO DAILY 08/05/17 02/15/25 History fish oil-dha-epa 1,200 mg-144 1 cap PO DAILY 09/04/20 02/15/25 History mg-216 mg capsule morphine 15 mg tablet,extended 15 mg PO TID 09/04/20 02/18/25 History release ondansetron 4 mg disintegrating 4 mg PO Q8H PRN PRN Nausea #10 tabs 09/15/22 Unknown Rx tablet aspirin 81 mg tablet,delayed 81 mg PO QDAY 12/18/24 02/15/25 History release (Adult Aspirin Regimen) cholecalciferol (vitamin D3) 50 50 mcg PO QDAY 12/18/24 02/18/25 History mcg (2,000 unit) capsule empagliflozin 25 mg tablet 25 mg PO QDAY 12/18/24 02/15/25 History hydroxyzine pamoate 25 mg capsule 25 mg PO QDAY PRN anxiety 12/18/24 Unknown History pantoprazole 40 mg tablet,delayed 40 mg PO BID #60 tabs 12/18/24 02/15/25 Rx release docusate sodium 100 mg capsule 100 mg PO BID 02/14/25 02/18/25 History (Colace) psyllium husk 3.4 gram/5.4 gram 1 tbsp PO DAILY 02/14/25 02/18/25 History oral powder (Metamucil) acetaminophen 500 mg/15 mL oral 500 mg PO Q4H PRN pain 02/19/25 02/18/25 History liquid Allergy/AdvReac Type Severity Reaction Status Date / Time hydrocodone (From Vicodin) Allergy Rash Verified 02/19/25 05:51 celecoxib (From Celebrex) AdvReac goofy Verified 02/19/25 05:51 Surgical History History of rotator cuff surgery H/O lithotripsy Social History Smoking Status: Current every day smoker tobacco type: cigarettes alcohol intake: never substance use type: does not use Review of Systems (Anesthesia) ROS Narrative System reviewed and no additional complaints, except as documented.
--- NOTE | 2025-02-19 07:12 | PCM.POST.ANE ---
Anesthesia: Postop Eval I Current Vital Signs Temperature: 98 F Pulse Rate: 98 Blood Pressure: 107/72 Respiratory Rate: 16 Pulse Ox: 99 Oxygen Delivery Method: Room Air Assessment Airway patent: Yes Spontaneous unlabored respirations: Yes Mental status: Awake and Calm nausea: No Vomiting: No Anesthesia Complication: No Fluid Hydration Crystalloid volume administer (ml): 300 Total IV fluid infused: 300 Progress Note Anesthesia document: Postop Eval 1 completed: Yes
--- NOTE | 2025-02-19 07:13 | OP.EGD_ITS ---
Patient Name: Agapito Messer Procedure Date: 02/19/2025 6:20 AM Date of : 1950 Age: 74 Procedure: Upper GI endoscopy Indications: Epigastric abdominal pain, Dysphagia Providers: Tonio Rogers DO Referring MD: [facility] Medicines: Monitored Anesthesia Care Patient Profile: This is a 74 year old male. Refer to note in patient chart for documentation of history and physical. Patient has symptoms of chronic dysphagia, dysphagia with solids, chronic dyspepsia and chronic heartburn. Complications: No immediate complications. Procedure: Pre-Anesthesia Assessment: - Prior to the procedure, a History and Physical was performed, and patient medications and allergies were reviewed. The patient is competent. The risks and benefits of the procedure and the sedation options and risks were discussed with the patient. All questions were answered and informed consent was obtained. Patient identification and proposed procedure were verified by the physician in the pre-procedure area. Mental Status Examination: alert and oriented. Airway Examination: normal oropharyngeal airway and neck mobility. Respiratory Examination: clear to auscultation. CV Examination: normal. Prophylactic Antibiotics: The patient does not require prophylactic antibiotics. Prior Anticoagulants: The patient has taken no anticoagulant or antiplatelet agents except for NSAID medication. ASA Grade Assessment: II - A patient with mild systemic disease. After reviewing the risks and benefits, the patient was deemed in satisfactory condition to undergo the procedure. The anesthesia plan was to use monitored anesthesia care (MAC). Immediately prior to administration of medications, the patient was re-assessed for adequacy to receive sedatives. The heart rate, respiratory rate, oxygen saturations, blood pressure, adequacy of pulmonary ventilation, and response to care were monitored throughout the procedure. The physical status of the patient was re-assessed after the procedure. After obtaining informed consent, the endoscope was passed under direct vision. Throughout the procedure, the patient's blood pressure, pulse, and oxygen saturations were monitored continuously. The gastroscope was introduced through the mouth, and advanced to the second part of duodenum. The upper GI endoscopy was accomplished without difficulty. The patient tolerated the procedure well. Scope In: 6:58:03 AM Scope Out: 7:04:01 AM Total Procedure Duration Time 0 hours 5 minutes 58 seconds Findings: Abnormal motility was noted in the esophagus. The cricopharyngeus was abnormal. There are extra peristaltic waves in the esophageal body. The distal esophagus/lower esophageal sphincter is spastic, but gives up passage to the endoscope. The Z-line was irregular and was found 40 cm from the incisors. Biopsies were taken with a cold forceps for histology. Verification of patient identification for the specimen was done. Estimated blood loss was minimal. A moderate Schatzki ring was found at the gastroesophageal junction. A guidewire was placed and the scope was withdrawn. Dilation was performed with a Savary dilator with no resistance at 60 Fr. The dilation site was examined and showed moderate improvement in luminal narrowing. Estimated blood loss was minimal. No gross lesions were noted in the entire examined stomach. No gross lesions were noted in the entire examined duodenum. Impression: - Abnormal esophageal motility, suspicious for esophageal spasm. - Z-line irregular, 40 cm from the incisors. Biopsied. - Moderate Schatzki ring. Dilated. - No gross lesions in the entire stomach. - No gross lesions in the entire examined duodenum. Recommendation: - Discharge patient to home. - Resume previous diet. - Continue present medications. - Await pathology results. Procedure Code(s): --- Professional --- 71944, Esophagogastroduodenoscopy, flexible, transoral; with insertion of guide wire followed by passage of dilator(s) through esophagus over guide wire 51343, 59,51, Esophagogastroduodenoscopy, flexible, transoral; with biopsy, single or multiple CPT copyright 2021 [employer] [place] [employer]. All rights reserved. The codes documented in this report are preliminary and upon window installer review may be revised to meet current compliance requirements. Tonio Rogers DO 02/19/2025 7:12:47 AM This report has been signed electronically. Number of Addenda: 0 Note Initiated On: 02/19/2025 6:20 AM
--- NOTE | 2025-02-19 07:14 | OP.CCLET_ITS ---
02/19/2025 [facility] Re : Upper GI endoscopy procedure for [facility] This procedure was performed on Wednesday, February 19, 2025. My impressions and recommendations are as follows: Impressions : - Abnormal esophageal motility, suspicious for esophageal spasm. - Z-line irregular, 40 cm from the incisors. Biopsied. - Moderate Schatzki ring. Dilated. - No gross lesions in the entire stomach. - No gross lesions in the entire examined duodenum. Recommendations : - Discharge patient to home. - Resume previous diet. - Continue present medications. - Await pathology results. My findings are described in the full procedure note, which is enclosed. If I can be of further assistance, please feel free to contact me at . Sincerely, Tonio Rogers, 02/19/2025 7:12:47 AM This report has been signed electronically.
--- NOTE | 2025-02-19 08:10 | PCM.POSTANE2 ---
Anesthesia Postop Eval I Sum Postop Eval Completion status Anesthesia document: Postop Eval 1 completed: Yes Anesthesia Postop Eval I Summary Anesthesia Postop Eval I Summary: Anesthesia Postop Eval I: Assessment Summary Airway patent Yes 02/19/25 07:13 [email or web address] Spontaneous unlabored Yes 02/19/25 07:13 [email or web address] respirations Mental status Awake,Calm 02/19/25 07:13 [email or web address] nausea No 02/19/25 07:13 [email or web address] Vomiting No 02/19/25 07:13 [email or web address] Anesthesia Postop Eval I: Fluid Summary Crystalloid volume administer 300 02/19/25 07:13 [email or web address] (ml) Colloids volume administered ( ml) Blood Product volume administered (ml) Total IV fluid infused 300 02/19/25 07:13 [email or web address] Anesthesia Postop Eval I: Summary Notes Anesthesia Complication No 02/19/25 07:13 [email or web address] Anesthesia Complication Comment: Post-operative progress note Anesthesia: Postop Eval II Evaluation Mental status: Awake Pain Level: 0 nausea: No Vomiting: No
== END 2025-02-19 07:40 | disposition home or self-care (01) ==
LOC: EN 05:18 → AC 05:19
PROVIDERS: Visit Provider Internal Medicine Gastroenterology
PROC: 0DJ08ZZ Inspection of Upper Intestinal Tract, Via Natural or Artificial Opening Endoscopic (ICD-10-PCS; CPT 43235; principal; 2025-02-19 06:25)
DX: K21.00 Gastro-esophageal reflux disease with esophagitis, without bleeding (principal); K22.2 Esophageal obstruction; F17.210 Nicotine dependence, cigarettes, uncomplicated; Z79.84 Long term (current) use of oral hypoglycemic drugs; Z79.82 Long term (current) use of aspirin; Z79.899 Other long term (current) drug therapy; K30 Functional dyspepsia
CPT/HCPCS: 43248; 43239; 82962; 88305; 88312; 88342; C1769; J2405

== ENCOUNTER → 2025-03-29 | Outpatient (CLI) | payer OTHER, SELFPAY ==
--- OUTSIDE RECORDS SUMMARY | 2025-03-29 06:17 | XMS RPT_ITS | CCD ---
Author Organization [facility] Care Team Providers Care Pedicab Driver Name Role Phone ISIAH LOBO DO Primary Care Physician [phone] Isiah Lobo DO Primary Care Provider Domenic Khan Attending Unavailable Unavailable Primary Care Provider Unavailabl e Unavailable Primary Care Provider Unavailabl e REFERRING, ELO LINO ID Attending Unavailable RODRIGO HUNTER, DR REY CORTES Attending [facility] Isiah Lobo DO Primary Care Provider PHYSICIAN, PATIENT UNSURE Primary Care Physician Unavailable MIKE AGUIRRE MD Attending Unavailable PHYSICIAN, PATIENT UNSURE Primary [place] Primary Care Provider Unavailabl e NP. Larisa Leal Attending Provider [phone] NP. Larisa Leal Referring Provider [place] Primary Care [place] Referring Provider Unavailable Luz Hector Attending Provider Gianni HUNTER, Dr. Rodríguez Attending Provider [phone] Dr. Vickey Espinoza MD Attending Provider Shakira Dee Attending Provider Shakira Dee Referring Provider Dr. Rey Wallace MD Attending Provider Dr. Rey Wallace MD Referring Provider Luz Hector Referring [place] Primary Care Provider Unavailabl e Mckenna Dill Attending Provider [phone] Yoana Chambers Referring Provider PHYSICIAN, PATIENT UNSURE Primary Care GABY Packer DO Attending Unavailable PHYSICIAN, PATIENT UNSURE Primary Care Gal LION PA-C, YOANA Brennan Attending Unavailable Marcos Archer [facility] Referring Unavailable Luz Bacon [facility] Unavailable Tonio Rogers Attending Unavailable Tonio Rogers Consulting [facility] Referring Unavailable Livia, Ramyon Referring Unavailable Livia, Raymon Attending [facility] Unavailable Yoana Lion Referring Unavailable Mckenna Penn Attending [facility] Unavailable Charito TOOL DESIGN ENGINEER, Domenic Referring Unavailable Charito TOOL DESIGN ENGINEER, Domenic Attending [facility] Unavailable Jung, Satinder Referring Unavailable Jung, Satinder Attending Unavailable Luz Bacon Referring Unavailable Jordi, Luz Attending [facility] Unavailable Luz Bacon Referring Unavailable Luz Bacon Attending [facility] Unavailable Tonio Rogers Attending [facility] Referring Unavailable Mel, Larisa Referring Unavailable Carlisle, Larisa Attending [facility] Unavailable Hewitt, Shakira Referring Unavailable Hewitt, Shakira Attending [facility] Unavailable Kumar Bro Referring Unavailable Kumar Bro Attending Unavailable RodrigoRey Referring Unavailable Rodrigo, Rey Cortes Attending [facility] Unavailable Rodrigo, Rey Cortes Referring Unavailable Rodrigo, Rey Cortes Attending [facility] Unavailable Olga, Vickey Attending Unavailable Allergies Allergy Classification Reported Allergen(s) Allergy Type Date of Onset Reaction(s) Facility (20 sources) Acetaminophen / HYDROcodone; Translations: [acetaminophen-hy drocodone] Drug Allergy 0 [facility] Comment on above: called and talked to Hortensia Sam RN and she spoke with patient and patient stated that he has taken plain tylenol and had no reaction to it but when pt took vicodin then vicodin caused hives and delusions------[facility] 1040 12/16/14 (19 sources) Amoxicillin; Translations: [amoxicillin] Drug Allergy 2 Headache (finding), Nausea (finding), Dyspnea (finding), Intolerance, GI Upset, Shortness of Breath [facility] (19 sources) buPROPion; Translations: [bupropion] Drug Allergy 2 Nausea (finding), Unknown, GI Upset [facility] (20 sources) celecoxib; Translations: [celecoxib] Drug Allergy 0 Mental Status Change [facility] (19 sources) varenicline; Translations: [varenicline] Drug Allergy 2 Unknown [facility] Comment on above: makes him loopy (16 sources) HYDROcodone; Translations: [HYDROCODONE] Drug Allergy 2 Rash [facility] (8 sources) metFORMIN; Translations: [METFORMIN] Drug Allergy 8 GI Upset [facility] (1 source) Acetaminophen / HYDROcodone; Translations: [HYDROCODONE-ACET AMINOPHEN] Drug Allergy 0 [facility] (1 source) celecoxib Drug Allergy 5 [facility] (1 source) HYDROcodone Drug Allergy 5 [facility] Medications Current Medications Medication Drug Class(es) Dates Sig (Normalized) Sig (Original) acetaminophen 325 mg / oxyCODONE hydrochloride 5 mg oral tablet (1 source) Opioid Agonist Start: 09-15-2022 take 1 tablet by mouth every six hours as needed Oxycodone-Acetam inophen Active 1 TABLET PO EVERY 6 HOURS NEEDED 12 September 15, 2022 [id number] 200 actuat albuterol 0.09 mg/actuat metered dose inhaler (5 sources) beta2-Adrenergic Agonist Start: 12-16-2022 take 2 puff(s) by inhalation every six hours as needed albuterol HFA (PROAIR HFA) 90 mcg/actuation inhaler Inhale 2 Puffs as instructed every 6 hours as needed. 1 Each 12/16/2022 Active Comment on above: Inhale 2 Puffs as in structed every 6 hours as needed. 24 hr alfuzosin hydrochloride 10 mg extended release oral tablet (20 sources) alpha-Adrenergic Tony Start: 08-05-2017 alfuzosin 10 mg oral tablet, extended release Dose : 10 mg = 1 tab(s), Oral, qDay, # 30 tab(s), 0 Refill(s) Start Date: 11/04/21 Status: Ordered Quantity: 30.0 Unit: tab(s) Repeat number: 1 Comment on above: Take 10 mg by mouth. aspirin 81 mg delayed release oral tablet (20 sources) Platelet Aggregation Inhibitor, Nonsteroidal Anti-inflammatory Drug Start: 12-18-2024 take 1 tablet by mouth once daily Aspirin (Adult Aspirin Regimen) 81 mg tablet,delayed release (DR/EC) Active 81 mg PO daily December 18, 2024 1:00am Start: 12-16-2014 aspirin 81 mg oral tablet (chewable) Dose : 81 mg = 1 tab(s), Oral, qHS, 0 Refill(s) Start Date: 12/16/14 Status: Ordered Repeat number: 1 aspirin 81 mg ch ewable tablet Take 81 mg by mouth. Active Comment on above: Take 81 mg by mouth. benzonatate 100 mg oral capsule (6 sources) Non-narcotic Antitussive Start: End: take 1 capsule by mouth three times daily as needed benzonatate (TESSALON PERLE) 100 mg capsule Indications: Acute cough Take 1-2 capsules by mouth three times a day as needed for cough for up to 7 days. 42 capsule 11/14/2024 11/21/2024 Active Start: 12-16-2022 End: 11-14-2024 take 2 capsules by mouth every eight hours as needed benzonatate (TESSALON PERLES) 100 mg capsule Take 2 capsules by mouth three times daily as needed. 30 capsule 12/16/2022 11/14/2024 Discontinued (Course of therapy completed) Comment on above: Take 2 capsules by m outh three times daily as needed. busPIRone hydrochloride 10 mg oral tablet (4 sources) Start: 03-12-20 busPIRone 10 mg oral tablet Dose : 10 mg = 1 tab(s), Oral, TID, # 90 tab(s), 5 Refill(s), [facility] Trouble in sleeping Anxiety depression, 183, cm, 03/12/22 8:43:00 EDT, Height Start Date: 03/12/22 Status: Ordered cholecalciferol 0.05 mg oral capsule (12 sources) Vitamin D Start: 12-18-19 25 take 1 capsule by mouth once daily Cholecalciferol (Vitamin D3) 50 mcg (2,000 unit) capsule Active 50 ug PO daily December 18, 2024 1:00am Start: 05-10-2019 cholecalcifero l, vitamin D3, 10 mcg (400 unit) cap 2,000 Units. 05/10/2019 Active Comment on above: 2,000 Units. docusate sodium 100 mg oral capsule (16 sources) Start: 11-05-2017 docusate sodiu m (COLACE) 100 mg capsule 100 mg. 11/05/2017 Active Start: 11-05-2017 take 1 dose by mouth twice coleen ly Colace Dose : 100 mg =, Oral, BID, 0 Refill(s) Start Date: 11/05/17 Status: Ordered Repeat number: 1 Comment on above: 100 mg. empagliflozin 25 mg oral tablet (14 sources) Sodium-Glucose Cotransporter 2 Inhibitor Start: 12-18-19 25 take 1 tablet by mouth once daily Empagliflozin 25 mg tablet Active 25 mg PO daily December 18, 2024 1:00am Start: 05-10-2019 empagliflozin 10 mg oral tablet Dose : 10 mg = 1 tab(s), Oral, qAM, 0 Refill(s) Start Date: 05/10/19 Status: Ordered Repeat number: 1 Fish Oil-Dha-Epa (3 sources) Start: 09-04-2020 take 1 capsule by mouth once daily Fish Oil-Dha-Epa Active 1 CAP PO DAILY September 04, 2020 12:00am Start: 09-04-2020 take 1 capsule by mo ut once daily Fish Oil-Dha-Epa Active 1 CAP PO DAILY September 04, 2020 1:00am Fish Oil-Dha-Epa 1 EACH capsule (5 sources) Start: 09-04-2020 take 1 capsule by mouth once daily Fish Oil-Dha-Epa 1 EACH capsule Active 1 NMA PO DAILY September 04, 2020 1:00am Fish Oils (9 sources) Start: 09-12-2017 Fish Oil 1000 mg oral capsule Dose : 1,000 mg = 1 cap(s), Oral, qDay, 0 Refill(s) Start Date: 09/12/17 Status: Ordered Repeat number: 1 Start: 09-12-2017 Fish Oil 1000 mg oral capsule Dose : 1,000 mg = 1 cap(s), Oral, qDay, 0 Refill(s) Start Date: 09/12/17 Status: Ordered fluticasone propionate 0.05 mg/actuat metered dose nasal spray (5 sources) Corticosteroid Start: 12-16-2022 take 2 spray(s) by mouth once daily fluticasone (FLONASE) 50 mcg/actuation nasal spray Use 2 Sprays in each nostril once daily. Rinse mouth after use. 1 Each 12/16/2022 Active Comment on above: Use 2 Sprays in each nostril once daily. Rinse mouth after use. gabapentin 300 mg oral capsule (20 sources) Anti-epileptic Agent Start: 08-05-2017 Neurontin 300 mg oral capsule Dose : 300 mg = 1 cap(s), Oral, BID, 0 Refill(s) Start Date: 09/12/17 Status: Ordered Repeat number: 1 Comment on above: 300 mg. glimepiride 4 mg oral tablet (20 sources) Sulfonylurea Start: 12-16-2014 glimepiride 4 mg oral tablet Dose : 4 mg = 1 tab(s), Oral, qDay, # 30 tab(s) Start Date: 12/16/14 Status: Ordered Quantity: 30.0 Unit: tab(s) Repeat number: 1 Comment on above: Take 4 mg by mouth. 12 hr guaiFENesin 600 mg extended release oral tablet (2 sources) Start: 11-14-2024 End: 11-21-2024 take 2 tablets by mouth twice daily guaiFENesin (MUCINEX) 600 mg 12 hr tablet Indications: Chest congestion Take 2 tablets by mouth two times a day for 7 days. 28 tablet 11/14/2024 11/21/2024 Active hydrOXYzine pamoate 25 mg oral capsule (6 sources) Antihistamine Start: 12-18-2024 take 1 capsule by mouth once daily as needed Hydroxyzine Pamoate 25 mg capsule Active 25 mg PO daily as needed December 18, 2024 1:00am Start: 09-04-2020 take 25-50 mg by hero th at bedtime Hydroxyzine Pamoate Active 25 - 50 MG PO AT BEDTIME September 04, 2020 1:00am losartan potassium 25 mg oral tablet (8 sources) Angiotensin 2 Receptor Tony Start: 05-12-2023 losartan 25 mg oral tablet Dose : 25 mg = 1 tab(s), Oral, qDay, # 90 tab(s), 1 Refill(s), Pharmacy: [id number] [id number], Hypertension associated with type 2 diabetes mellitus, 182.5, cm, 05/12/23 10:30:00 EDT, Height, kg, 05/12/23 10:30:00 EDT, Dosing Weight Start Date: 05/12/23 Status: Ordered Quantity: 90.0 Unit: tab(s) Repeat number: 2 Indications: Type 2 diabetes mellitus with other circulatory complications; Start: 03-03-2022 losartan 25 mg oral tablet Dose : 25 mg = 1 tab(s), Oral, qDay, # 90 tab(s), 1 Refill(s), Pharmacy: [id number] [facility], Diabetes, 183, cm, 03/03/22 14:20:00 EDT, Height Start Date: 03/03/22 Status: Ordered meloxicam 15 mg oral tablet (20 sources) Nonsteroidal Anti-inflammatory Drug Start: 08-05-2017 Mobic 15 mg oral tablet Dose : 15 mg = 1 tab(s), Oral, qDayM, # 90 tab(s), 0 Refill(s) Start Date: 09/12/17 Status: Ordered Quantity: 90.0 Unit: tab(s) Repeat number: 1 Comment on above: 15 mg. morphine sulfate 15 mg extended release oral tablet (20 sources) Opioid Agonist Start: 05-10-2019 take 1 tablet by mouth three times daily for pain morphine 15 mg/8 to 12 hr oral tablet, extended release take 1 tablet by mouth three times a day if needed for pain Start Date: 05/10/19 Status: Ordered Start: 05-10-2019 take 1 tablet by hero th three times daily for pain morphine 15 mg/8 to 12 hr oral tablet, extended release take 1 tablet by mouth three times a day if needed for pain Start Date: 05/10/19 Status: Ordered Repeat number: 1 Comment on above: take 1 tablet by mouth three times a day if needed for pain nitrofurantoin, macrocrystals 25 mg / nitrofurantoin, monohydrate 75 mg oral capsule (1 source) Nitrofuran Antibacterial Start: 022 End: 022 take 1 capsule by mouth twice daily nitrofurantoin monohydrate and macrocrystal (MACROBID) 100 mg capsule Take 1 capsule by mouth twice daily for 5 days. 10 capsule 0 09/18/2022 09/23/2022 Active Comment on above: Take [address] [facility] twice daily for 5 days. omega 1-xxa-pbz-fish oil (FISH OIL) 100-160-1,000 mg cap (7 sources) Start: 017 take 100-160 capsules by mouth once daily omega 6-vdq-jje-fish oil (FISH OIL) 100-160-1,000 mg cap Take 1,000 mg by mouth once daily. 09/12/2017 Active Start: 09-12-2017 take 100-160 capsule s by mouth once daily omega 4-irl-gvi-fish oil (FISH OIL) 100-160-1,000 mg cap Take 1,000 mg by mouth once daily. 0 09/12/2017 Active Comment on above: Take 1,000 mg by hero once daily. ondansetron 4 mg disintegrating oral tablet (14 sources) Serotonin-3 Receptor Antagonist Start: 2 take 1 tablet by mouth every eight hours as needed for nausea Ondansetron 4 MG tablet Active 4 mg PO EVERY 8 HOURS NEEDED as needed for Nausea September 15, 2022 1:00am Start: 07-08-2020 take 1 tablet by hero th three times daily ondansetron orally disintegrating (ZOFRAN ODT) 4 mg disintegrating tablet 4 mg three times daily. 07/08/2020 Active Comment on above: 4 mg three times coleen ly. pantoprazole 40 mg delayed release oral tablet (15 sources) Proton Pump Inhibitor Start: 2 End: 5 pantoprazole 40 mg oral enteric coated tablet Dose : 40 mg = 1 tab(s), Oral, BID, # 60 tab(s), 0 Refill(s) Start Date: 12/03/24 Status: Ordered Quantity: 60.0 Unit: tab(s) Repeat number: 1 tamsulosin hydrochloride 0.4 mg oral capsule (7 sources) alpha-Adrenergic Tony tamsulosin (FLOMAX) 0.4 mg Take 0.4 mg by mouth. Active Comment on above: Take 0.4 mg by mouth . traMADol hydrochloride 50 mg oral tablet (6 sources) Opioid Agonist Start: 3 take 1 tablet by mouth every four hours as needed for pain Tramadol 50 mg tablet Active 50 mg PO EVERY 4 HOURS NEEDED as needed for Pain 10 December 20, 2022 1:00am traZODone hydrochloride 50 mg oral tablet (1 source) Serotonin Reuptake Inhibitor Start: 1 End: 2 traZODone 50 mg oral tablet Dose : 50 mg = 1 tab(s), Oral, qHS, # 90 tab(s), 1 Refill(s), Pharmacy: [address], Trouble in sleeping, 183.5, cm, 07/04/21 10:00:00 EDT, Height, kg, 07/04/21 10:00:00 EDT, Dosing Weight Start Date: 07/04/21 Stop Date: 11/01/21 Status: Ordered Vitamin D3 (9 sources) Start: 9 Vitamin D3 Dose : 2,000 unit(s) = 1 tab(s), Oral, qDay, # 60 tab(s), 0 Refill(s) Start Date: 05/10/19 Status: Ordered Quantity: 60.0 Unit: tab(s) Repeat number: 1 Start: 05-10-2019 Vitamin D3 Dos e : 2,000 unit(s) = 1 tab(s), Oral, qDay, # 60 tab(s), 0 Refill(s) Start Date: 05/10/19 Status: Ordered Completed/Discontinued Medications Medication Drug Class(es) Dates Sig (Normalized) Sig (Original) albuterol MDI (90 mcg/inh) CFC free inhalation aerosol (3 sources) Start: 12-23-2022 End: 03-23-2023 take 2 puff(s) by inhalation every four hours albuterol MDI (90 mcg/inh) CFC free inhalation aerosol 2 puff(s), Inhalation, q4h, # 1 EA, 2 Refill(s), Pharmacy: [facility] #[id number], Viral bronchitis Heavy smoker, 182, cm, 12/23/22 8:59:00 EST, Height Start Date: 12/23/22 Stop Date: 03/23/23 Status: Ordered Quantity: 1.0 Unit: EA Repeat number: 3 Indications: Nicotine dependence, unspecified, uncomplicated; Acute bronchitis due to other specified organisms; Start: 12-23-2022 End: 03-23-2023 take 2 puff(s) by inhalation every four hours albuterol MDI (90 mcg/inh) CFC free inhalation aerosol 2 puff(s), Inhalation, q4h, # 1 EA, 2 Refill(s), Pharmacy: [facility] #[id number], Viral bronchitis Heavy smoker, 182, cm, 12/23/22 8:59:00 EST, Height Start Date: 12/23/22 Stop Date: 03/23/23 Status: Ordered amitriptyline hydrochloride 10 mg oral tablet (3 sources) Tricyclic Antidepressant Start: 05-12-2023 End: 08-10-2023 amitriptyline 10 mg oral tablet Dose : 10 mg = 1 tab(s), Oral, qHS, Aware of age. Medication works well for patient, # 90 tab(s), 1 Refill(s), Pharmacy: [facility] #[id number], Trouble in sleeping Recurrent major depression, 182.5, cm, 05/12/23 10:30:00 EDT, Height, kg, 05/12/23 10:30:00 EDT, Dosing Weight Start Date: 05/12/23 Stop Date: 08/10/23 Status: Ordered Quantity: 90.0 Unit: tab(s) Repeat number: 2 Indications: Major depressive disorder, recurrent, unspecified; Sleep disorder, unspecified; amoxicillin 875 mg / clavulanate 125 mg oral tablet (6 sources) Penicillin-class Antibacterial Start: 12-20-2022 End: 12-18-2024 take 1 tablet by mouth every twelve hours Amoxicillin-Pot Clavulanate 875-125 mg tablet Discontinued 875 mg PO Q12H December 20, 2022 1:00am December 18, 2024 12:01pm ergocalciferol 1.25 mg oral capsule (8 sources) Provitamin D2 Compound Start: 09-04-2020 End: 12-18-2024 take 1 capsule by mouth once daily Ergocalciferol (Vitamin D2) 50,000 UNIT capsule Discontinued 50 U PO DAILY September 04, 2020 1:00am December 18, 2024 12:00pm Start: 09-04-2020 Ergocalciferol (Vitamin D2) Active 07565 UNIT PO .FRIDAY September 04, 2020 12:00am Problems Active Problems Problem Classification Problem Date Documented Date Episodic/Chronic Acute bronchitis (11 sources) Acute bronchitis; Translations: [Acute bronchitis, unspecified] 12-20-2022 Episodic Anxiety disorders (19 sources) Anxiety; Translations: [Mixed anxiety and depressive disorder] Onset: 11-14-1905-09-2019 Chronic Calculus of urinary tract (20 sources) Kidney stone; Translations: [Calculus of kidney] 12-16-2014 Episodic Chronic kidney disease (10 sources) Chronic kidney disease stage 3; Translations: [Stage 3 chronic kidney disease] Onset: 11-14-1909-04-2020 Chronic Chronic obstructive pulmonary disease and bronchiectasis (2 sources) Bronchitis; Translations: [Bronchitis, not specified as acute or chronic] Episodic Diabetes mellitus with complications (5 sources) Type II diabetes mellitus uncontrolled 05-12-2023 Chronic Diabetes mellitus without complication (20 sources) Diabetes mellitus; Translations: [Type 2 diabetes mellitus without complications] Onset: 11-14-1912-16-2014 Chronic Diabetes mellitus without complication (1 source) Glycosuria; Translations: [Glycosuria] Episodic Disorders of lipid metabolism (11 sources) Hypertriglyceridemia 05-09-2019 Chronic Esophageal disorders (20 sources) Gastroesophageal reflux disease; Translations: [Gastro-esophageal reflux disease without esophagitis] Onset: 11-14-1905-09-2019 Chronic Esophageal disorders (2 sources) Esophageal disorders; Translations: [Gastro-esophageal reflux disease with esophagitis, without bleeding] Onset: 12-18-19 Essential hypertension (7 sources) Hypertensive disorder; Translations: [Essential (primary) hypertension] Onset: 11-14-1905-12-2023 Chronic Genitourinary symptoms and ill-defined conditions (1 source) Scalding pain on urination ; Translations: [Dysuria] 04-10-2024 Episodic Headache; including migraine (1 source) Headache; Translations: [Headaches] 11-14-2024 Episodic Hyperplasia of prostate (11 sources) Benign prostatic hyperplasia 03-11-2016 Chronic Malaise and fatigue (11 sources) Fatigue 02-23-2020 Episodic Mood disorders (7 sources) Recurrent major depression; Translations: [Major depressive disorder, recurrent, unspecified] Onset: 11-14-1905-12-2023 Chronic Nonspecific chest pain (1 source) Tight chest; Translations: [Other chest pain] 11-14-2024 Episodic Nutritional deficiencies (11 sources) Vitamin D deficiency 02-23-2020 Chronic Osteoarthritis (11 sources) Arthritis 12-16-2014 Chronic Other acquired deformities (10 sources) Lumbar spondylolisthesis; Translations: [Spondylolisthesis, lumbar region] 12-25-2024 Episodic Other circulatory disease (1 source) Pulmonary congestion ; Translations: [Other specified symptoms and signs involving the circulatory and respiratory systems] 11-14-2024 Episodic Other disorders of stomach and duodenum (10 sources) Delayed gastric emptying; Translations: [Functional dyspepsia] 12-18-2024 Episodic Other disorders of stomach and duodenum (2 sources) Functional dyspepsia; Translations: [Functional dyspepsia] Onset: 12-18-19 Episodic Other gastrointestinal disorders (20 sources) Dysphagia; Translations: [Dysphagia, unspecified] 12-22-2019 Episodic Other gastrointestinal disorders (2 sources) Dysphagia, unspecified; Translations: [Dysphagia, unspecified] Onset: 03-01-20 Episodic Other injuries and conditions due to external causes (8 sources) Food lodged in esophagus; Translations: [Food in esophagus causing other injury, initial encounter] 08-16-2022 Episodic Other injuries and conditions due to external causes (1 source) Foreign body in esophagus; Translations: [Food in esophagus causing other injury, initial encounter] Onset: 12-03-19 Episodic Other liver diseases (11 sources) Steatosis of liver 05-09-2019 Chronic Other lower respiratory disease (13 sources) Dyspnea; Translations: [Dyspnea, unspecified] 01-09-2021 Episodic Other lower respiratory disease (1 source) Cough; Translations: [Acute cough] 11-14-2024 Episodic Other nervous system disorders (8 sources) Chronic pain syndrome; Translations: [Chronic pain syndrome] 09-04-2020 Chronic Other nutritional; endocrine; and metabolic disorders (9 sources) Overweight in adulthood with body mass index of 25 or more but less than 30 08-14-2022 Episodic Other screening for suspected conditions (not mental disorders or infectious disease) (12 sources) Viral screening status; Translations: [Encounter for screening for malignant neoplasm of respiratory organs] Onset: 03-29-2008-14-2022 Episodic Other upper respiratory infections (2 sources) Acute upper respiratory infection; Translations: [Acute upper respiratory infection, unspecified] Episodic Otitis media and related conditions (11 sources) Acute left otitis media; Translations: [Otitis media, unspecified, left ear] 12-20-2022 Episodic Residual codes; unclassified (11 sources) Insomnia 10-04-2019 Episodic Residual codes; unclassified (11 sources) Needs influenza immunization 07-30-2020 Episodic Residual codes; unclassified (11 sources) Requires vaccination 07-04-2021 Episodic Residual codes; unclassified (11 sources) Tobacco user 06-21-2019 Episodic Residual codes; unclassified (8 sources) Tobacco use and exposure - finding; Translations: [Tobacco use] 11-20-2013 Episodic Screening and history of mental health and substance abuse codes (1 source) Personal history of nicotine dependence; Translations: [Personal history of nicotine dependence] Onset: 03-29-20 Episodic Spondylosis; intervertebral disc disorders; other back problems (11 sources) Lumbar spondylosis; Translations: [Spondylosis without myelopathy or radiculopathy, lumbar region] Onset: 12-26-1912-25-2024 Chronic Spondylosis; intervertebral disc disorders; other back problems (14 sources) Chronic low back pain; Translations: [Acute low back pain] Onset: 05-05-20 24 09-13-2017 Episodic Sprains and strains (4 sources) Injury of multiple muscles and tendons at shoulder and upper arm level; Translations: [Strain of other muscles, fascia and tendons at shoulder and upper arm level, left arm, subsequent encounter] Onset: 02-13-20 Episodic Substance-related disorders (11 sources) Smoker 06-21-2019 Chronic Superficial injury; contusion (1 source) Contusion of knee; Translations: [Contusion of unspecified knee, initial encounter] Onset: 08-20-20 Episodic Transient cerebral ischemia (13 sources) Transient cerebral ischemia; Translations: [Transient cerebral ischemic attack, unspecified] Onset: 11-14-19 25 03-11-2016 Chronic Unclassified (20 sources) Patient encounter status 03-03-2022 Unclassified (10 sources) Statin not tolerated (context-dependent category) 11-04-2021 Unclassified (1 source) Low back pain, unspecified; Translations: [Low back pain, unspecified] Onset: 12-26-19 Past or Other Problems Problem Classification Problem Date Documented Da te Episodic/Chronic Abdominal pain (1 source) Generalized abdominal pain; Translations: [Generalized abdominal pain] Onset: 04-19-2024 Episodic Other acquired deformities (1 source) Spondylolisthesis, lumbar region; Translations: [Spondylolisthesis, lumbar region] Onset: 12-25-2024 Episodic Other acquired deformities (1 source) Unspecified acquired deformity of right lower leg; Translations: [Unspecified acquired deformity of right lower leg] Onset: 10-30-2024 Episodic Results Test Name Value Interpretation Reference Range Facility Bedside Glucoseon 02-19-2025 FINGERSTICK GLU 132 mg/dL High 74-106 [facility] Comment on above: Result Comment: ARLYN WOLFENT OF PATIENT CARE PER NURSING PROTOCOL Performed By: #### L 501.080 #### [facility] [address] [place], [address] EGD Reporton 02-19-2025 EGD Report [facility] Medical Records Department [address] [place] [address] EGD Report MR#: [id number] Acct: [id number] Name: AGAPITO MESSER Rep #: [id number] : 1950 74 From: Tonio Rogers DO PCP: [facility] Status:REG [facility] Patient Name: Agapito Messer Procedure Date: 02/19/2025 6:20 AM Date of : 1950 Age: 74 Procedure: Upper GI endoscopy Indications: Epigastric abdominal pain, Dysphagia Providers: Tonio Rogers DO Referring MD: [facility] Medicines: Monitored Anesthesia Care Patient Profile: This is a 74 year old male. Refer to note in patient chart for documentation of history and physical. Patient has symptoms of chronic dysphagia, dysphagia with solids, chronic dyspepsia and chronic heartburn. Complications: No immediate complications. Procedure: Pre-Anesthesia Assessment: - Prior to the procedure, a History and Physical was performed, and patient medications and allergies were reviewed. The patient is competent. The risks and benefits of the procedure and the sedation options and risks were discussed with the patient. All questions were answered and informed consent was obtained. Patient identification and proposed procedure were verified by the physician in the pre-procedure area. Mental Status Examination: alert and oriented. Airway Examination: normal oropharyngeal airway and neck mobility. Respiratory Examination: clear to auscultation. CV Examination: normal. Prophylactic Antibiotics: The patient does not require prophylactic antibiotics. Prior Anticoagulants: The patient has taken no anticoagulant or antiplatelet agents except for NSAID medication. ASA Grade Assessment: II - A patient with mild systemic disease. After reviewing the risks and benefits, the patient was deemed in satisfactory condition to undergo the procedure. The anesthesia plan was to use monitored anesthesia care (MAC). Immediately prior to administration of medications, the patient was re-assessed for adequacy to receive sedatives. The heart rate, respiratory rate, oxygen saturations, blood pressure, adequacy of pulmonary ventilation, and response to care were monitored throughout the procedure. The physical status of the patient was re-assessed after the procedure. After obtaining informed consent, the endoscope was passed under direct vision. Throughout the procedure, the patient's blood pressure, pulse, and oxygen saturations were monitored continuously. The gastroscope was introduced through the mouth, and advanced to the second part of duodenum. The upper GI endoscopy was accomplished without difficulty. The patient tolerated the procedure well. Scope In: 6:58:03 AM Scope Out: 7:04:01 AM Total Procedure Duration Time 0 hours 5 minutes 58 seconds Findings: Abnormal motility was noted in the esophagus. The cricopharyngeus was abnormal. There are extra peristaltic waves in the esophageal body. The distal esophagus/lower esophageal sphincter is spastic, but gives up passage to the endoscope. The Z-line was irregular and was found 40 cm from the incisors. Biopsies were taken with a cold forceps for histology. Verification of patient identification for the specimen was done. Estimated blood loss was minimal. A moderate Schatzki ring was found at the gastroesophageal junction. A guidewire was placed and the scope was withdrawn. Dilation was performed with a Savary dilator with no resistance at 60 Fr. The dilation site was examined and showed moderate improvement in luminal narrowing. Estimated blood loss was minimal. No gross lesions were noted in the entire examined stomach. No gross lesions were noted in the entire examined duodenum. Impression: - Abnormal esophageal motility, suspicious for esophageal spasm. - Z-line irregular, 40 cm from the incisors. Biopsied. - Moderate Schatzki ring. Dilated. - No gross lesions in the entire stomach. - No gross lesions in the entire examined duodenum. Recommendation: - Discharge patient to home. - Resume previous diet. - Continue present medications. - Await pathology results. Procedure Code(s): --- Professional --- 07263, Esophagogastroduodenos copy, flexible, transoral; with insertion of guide wire followed by passage of dilator(s) through esophagus over guide wire 58575, 59,51, Esophagogastroduodenos copy, flexible, transoral; with biopsy, single or multiple CPT copyright 2021 [employer]. All rights reserved. The codes documented in this report are preliminary and upon attenuator review may be revised to meet current compliance requirements. Tonio Rogers DO 02/19/2025 7:12:47 AM This report has been signed electronically. Number of Addenda: 0 Note Initiated On: 02/19/2025 6:20 AM 02/19/25712 Date Ra (more content not included)... Normal [facility] MR/POSTOP.Kaleigh 02-19-2025 MR/POSTOP.[facility] Medical Records Department [address] [place] [address] Anesthesia Postop Eval I 02/19/25711 MR#: [id number] Acct: [id number] Name: AGAPITO MESSER HITESH Rep #: [id number] : 1950 74 From: Nelson Desai PCP: [facility] Status:REG [facility] Y Race: C Location: [place] [address] Anesthesia: Postop Eval I Current Vital Signs Temperature: 98 F Pulse Rate: 98 Blood Pressure: 107/72 Respiratory Rate: 16 Pulse Ox: 99 Oxygen Delivery Method: Room Air Assessment Airway patent: Yes Spontaneous unlabored respirations: Yes Mental status: Awake and Calm nausea: No Vomiting: No Anesthesia Complication: No Fluid Hydration Crystalloid volume administer (ml): 300 Total IV fluid infused: 300 Progress Note Anesthesia document: Postop Eval 1 completed: Yes 02/19/25712 Date Nelson Collinsignmelissa Signature: Date CC: Signed Normal [facility] MR/[id number] 02-19-2025 [facility] Medical Records Department [address] [place] [address] Anesthesia Postop Eval II 02/19/25809 MR#: [id number] Acct: [id number] Name: AGAPITO MESSER Rep #: [id number] : 1950 74 From: Broderick Choudhury MD [place]CP: [facility] Status[facility] Y Race: C Location: [place] Anesthesia Postop Eval I Sum Postop Eval Completion status Anesthesia document: Postop Eval 1 completed: Yes Anesthesia Postop Eval I Summary Anesthesia Postop Eval I Summary: Anesthesia Postop Eval I: Assessment Summary Airway patent Yes 02/19/25 07:13 [email or web address] Spontaneous unlabored Yes 02/19/25 07:13 [email or web address] respirations Mental status Awake,Calm 02/19/25 07:13 [email or web address] nausea No 02/19/25 07:13 [email or web address] Vomiting No 02/19/25 07:13 [email or web address] Anesthesia Postop Eval I: Fluid Summary Crystalloid volume administer 300 02/19/25 07:13 [email or web address] (ml) Colloids volume administered ( ml) Blood Product volume administered (ml) Total IV fluid infused 300 02/19/25 07:13 [email or web address] Anesthesia Postop Eval I: Summary Notes Anesthesia Complication No 02/19/25 07:13 [email or web address] Anesthesia Complication Comment: Post-operative progress note Anesthesia: Postop Eval II Evaluation Mental status: Awake Pain Level: 0 nausea: No Vomiting: No 02/19/25 0810 Date Broderick Rodas Signature: Date CC: Signed Normal [facility] Surgery Specimen Level Alejandro 02-19-2025 Surgery Specimen Level IV ---- Patient Age/Sex Location Account Attending Physician ---- AGAPITO MESSER 74/M EN [id number] Tonio Rogers, DO ---- Specimen: [id number] Received: 02/19/25 Status: EFRAIN Heredia Num: [id number] Spec Type: EGD BIOPSY Subm Dr: Tonio Rogers DO HEADER OPERATION: EGD with biopsy and dilation PRE-OP DIAGNOSIS: Delayed gastric emptying, esophageal stricture, reflux esophagitis, dysphagia TISSUE SUBMITTED: A- Distal esophagus biopsy ---- MICROSCOPIC DIAGNOSIS A. Esophagus, distal, biopsy: Squamous mucosa with reactive changes and mild acute inflammation - see note. Columnar mucosa, negative for goblet cell metaplasia. Note: PASD stain highlights rare extracellular fungal organisms favoring contamination. MICROSCOPIC DESCRIPTION Slides are reviewed. All matched controls reacted appropriately. These tests were developed and their performance characteristics determined by [facility]. They may not have been cleared or approved by the U.S. Food and Drug Administration. The FDA has determined that such clearance or approval is not necessary. The above immunohistochemical/du alISH markers are ordered and reviewed by the Pathologist. GROSS DESCRIPTION A. Received in formalin in a container labeled with the patient's name, date of , and distal esophagus biopsy are multiple cunningham-pink fragments of mucosal tissue measuring 1.0 x 0.8 x 0.3 cm in aggregate. Submitted in toto in A1. [facility] 02-19-2025 CPT:94469, 52610 ---- Patient Age/Sex Location Account Attending Physician ---- AGAPITO MESSER 74/M EN [id number] Toniogilda Rogers DO ---- Signed (signature on file) Dr. Lizbeth Joy MD 02/26/25 1118 ---- Normal [facility] Comment on above: Performed By: #### P SUIV #### [facility] [address] [place], [address] MR/PATJoshua 02-14-2025 MR/PAT.ASHLEY [facility] Medical Records Department [address] [place] [address] PAT - Anesthesia 02/14/25 1518 MR#: [id number] Acct: [id number] Name: AGAPITO MESSER Rep #: [id number] : 1950 74 From: Broderick Choudhury MD [place]CP: [facility] Status:PRE [facility] Y Race: C Location: EN Pre-Assessment Diagnosis/Proposed Procedure Planned Operative Procedure(s): EGD Anesthesia History Anesthesia History - peat shredder tender: Anesthesia History - peat shredder tender Hx Hospitalization No 02/14/25 14:42 Any Problems With Anesthesia No 02/14/25 14:42 Cholinesterase deficiency No 02/14/25 14:42 You/Your Family Experience No 02/14/25 14:42 fever (hyperthermia) with Relationship Recent Exposure to Contagious No 09/05/20 20:30 Disease Does patient have nerve No 02/14/25 14:42 stimulator Patient instructed to have device shut off --Does patient have Pacemaker or ICD? When Was Last Pacemaker Check QUESTION #4 FULL TEXT: You/Your Family Experience fever (hyperthermia) with Anesthesia Last Oral Intake Last Oral intake: Last Oral Intake NPO since Meds taken in AM with sips of water? Meds patient instructed to take am of surgery PONV PONV - peat shredder tender: PONV - peat shredder tender Female No 02/14/25 14:42 HX of Motion Sickness No 02/14/25 14:42 HX of N/V After Surgery No 02/14/25 14:42 Non-Smoker No 02/14/25 14:42 Duration of Surgery greater No 02/14/25 14:42 than 60 minutes Number of Risk Factors PONV Score Height Weight Height Weight: Anesthesia: Height Weight Height 6 ft 12/25/24 13:03 Respiratory Assessment Respiratory Assessment - peat shredder tender: Respiratory Tract Infection Hx - peat shredder tender Hx Respiratory Tract Infection No 02/14/25 14:42 STOP Sleep Apnea STOP Sleep Apnea - peat shredder tender: STOP Sleep Apnea - peat shredder tender Hx Hypertension No 02/14/25 14:42 Hx Sleep Apnea No 02/14/25 14:42 CPAP No 09/06/20 16:47 BIPAP No 09/05/20 20:30 Do you snore loudly (louder No 02/14/25 14:42 than talking or can be heard Do you often feel tired/ No 02/14/25 14:42 fatigued/ sleepy during daytime? Has anyone observed you stop No 02/14/25 14:42 breathing during sleep? STOP Results Negative 02/14/25 14:42 QUESTION #5 FULL TEXT : Do you snore loudly (louder than talking or can be heard through closed doors)? 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 Specify any problems Hx of Preganancy in last 3 N/A 02/14/25 14:42 Months Nurse Filling Out Transfusion [facility] 02/14/25 14:42 Questions: Date: 02/14/25 02/14/25 14:42 Time: 14:52 02/14/25 14:42 Patient unable to answer at this time (ie. confused, unrespo /Reproduction History /Reproductive History - peat shredder tender: /Reproductive Hx- peat shredder tender Hx Now No 02/14/25 14:42 Gestational Age (in weeks): EDC: Hx Hx Para Hx Section SAB PFSH Medical History (Updated 02/14/25 @ 14:51 by Latha Daly) Wears partial dentures Wears glasses Anxiety Depression History of steroid therapy Ambulates with cane History of renal disease Fatty liver Migraine headache Dietary restriction Gastric reflux Smoker History of echocardiogram History of stress test Traumatic amputation of ear Finger amputation, traumatic Enlarged prostate Back pain Arthritis Kidney stones Home Medications ???Medication ???Instructions ???Recorded ???Last Taken ???Type alfuzosin 10 mg tablet,extended 10 mg PO DAILY 08/05/17 Unknown Hi story release 24 hr gabapentin 300 mg capsule 300 mg PO BIDCM 08/05/17 Unknown H istory glimepiride 4 mg tablet 4 mg PO DAILY 08/05/17 Unknown His tory meloxicam 15 mg tablet 15 mg PO DAILY 08/05/17 Unknown Hi story fish oil-dha-epa 1,200 mg-144 1 cap PO DAILY 09/04/20 Unknown Hi story mg-216 mg capsule morphine 15 mg tablet,extended 15 mg PO TID PRN PRN Pain Score 1 (more content not included)... Normal [facility] Electrocardiogram reportOrde red By: Raymon Bhakta on 02-07-2025 EKG study [facility] Cardiovascular Services [address] [place] [address] 12 Lead EKG 02/06/25 1227 MR#: [id number] Acct: [id number] Name: AGAPITO MESSER Rep #:[id number] : 1950 74 From: Raymon talavera MD Attending Dr: RANDALL Ontiveros St atus: REG CLI Ordering Dr: Mckenna Penn Date : 02/06/25 Location: PSN Sex: M C Admitted: Test Reason : PREOP Blood Pressure : */* mmHG Vent. Rate : 95 BPM Atrial Rate : 95 BPM P-R Int : 148 ms QRS Dur : 74 ms QT Int : 354 ms P-R-T Axes : 59 -5 30 degrees QTcB Int : 444 ms Normal sinus rhythm Inferior infarct , age undetermined Abnormal ECG Confirmed by Raymon Bhakta ([id number]), news copy editor OLYA RODRÍGUEZ ([id number]) on 0:03:43 AM Referred By: Yoana Lion Confirmed By: Raymon Bhakta 02/07/25 1003 Date _ Raymon Bhakta MD CC: RANDALL Ontiveros; RANDALL Lee; [facility] ~ Signed [facility] Other 12 Lead EKGon 02-06-2025 12 Lead EKG [facility] Cardiovascular Services [address] [place] [address] 12 Lead EKG 02/06/25 1227 MR#: [id number] Acct: [id number] Name: AGAPITO MESSER Rep #: [id number] : 1950 74 From: Raymon Bhakta MD Attending Dr: RANDALL Ontiveros Status: REG CL I Ordering Dr: Mckenna Penn Date: 02/06/25 Location: PSN Sex: M C Admitted: Test Reason : PREOP Blood Pressure : */* mmHG Vent. Rate : 95 BPM Atrial Rate : 95 BPM P-R Int : 148 ms QRS Dur : 74 ms QT Int : 354 ms P-R-T Axes : 59 -5 30 degrees QTcB Int : 444 ms Normal sinus rhythm Inferior infarct , age undetermined Abnormal ECG Confirmed by Raymon Bhakta ([id number]), news copy editor OLYA RODRÍGUEZ ([id number]) on 02/07/2025 10:03:43 AM Referred By: Yoana Lion Confirmed By: Raymon Bhakta 02/07/25 1003 Date Raymon Bhakta MD CC: RANDALL Ontiveros; RANDALL Lee; [facility] Signed Normal [facility] Absolute neutrophil countOrd ered By: Mckenna Penn on 02-06-2025 Neutrophils (Bld) [#/Vol] 5.1 10*3/uL 2.0-7.7 [facility] Anion gap in Serum or Plasma Ordered By: Mckenna Penn on 02-06-2025 Anion gap [Moles/Vol] 12 mmol/L 03-08 [facility] BUN/creatinine ratioOrdered By: Mckenna Penn on 02-06-2025 Urea nitrogen/Creatinine [Mass ratio] 16.9 mg/mg 08-13 [facility] Basic Metabolic Profile (BMP )on 02-06-2025 BUN/CRE 16.9 RATIO Normal 08-13 [facility] Comment on above: Performed By: #### L 100.0100, L500.2500, L501.9985 #### [facility] [address] [place], [address] Calcium [Mass/Vol] 8.9 mg/dL Normal 7.6-11.0 [facility] Comment on above: Performed By: #### L 100.0100, L500.2500, L501.9985 #### [facility] [address] [place], [address] Chloride [Moles/Vol] 103 mmol/L Normal 98-108 [facility] Comment on above: Performed By: #### L 100.0100, L500.2500, L501.9985 #### [facility] [address] [place], [address] CO2 [Moles/Vol] 21.3 mmol/L Normal 21.0-32.0 [facility] Comment on above: Performed By: #### L 100.0100, L500.2500, L501.9985 #### [facility] [address] [place], [address] Creatinine [Mass/Vol] 1.01 mg/dL Normal 0.70-1.20 [facility] Comment on above: Performed By: #### L 100.0100, L500.2500, L501.9985 #### [facility] [address] [place], [address] GAP 12 Normal 5-15 [facility] Comment on above: Performed By: #### L 100.0100, L500.2500, L501.9985 #### [facility] [address] [place], [address] GFR/1.73 sq M.predicted among non-blacks MDRD (S/P/Bld) [Vol rate/Area] 79 mL/min/{1.73_m2} Normal >60 [facility] Comment on above: Result Comment: mL/m in/1.73m2 CKD-EPI Creatinine Equation (2020) Performed By: #### L 100.0100, L500.2500, L501.9985 #### [facility] [address] [place], [address] Glucose [Mass/Vol] 150 mg/dL High 70-99 [facility] Comment on above: Performed By: #### L 100.0100, L500.2500, L501.9985 #### [facility] [address] [place], [address] Potassium [Moles/Vol] 4.7 mmol/L Normal 3.3-5.1 [facility] Comment on above: Result Comment: Hemo lysis present, Results??could be affected. ?? Performed By: #### L 100.0100, L500.2500, L501.9985 #### [facility] [address] [place], [address] Sodium [Moles/Vol] 136 mmol/L Normal 133-145 [facility] Comment on above: Performed By: #### L 100.0100, L500.2500, L501.9985 #### [facility] [address] [place], [address] Urea nitrogen [Mass/Vol] 17 mg/dL Normal 4-19 [facility] Comment on above: Performed By: #### L 100.0100, L500.2500, L501.9985 #### [facility] [address] [place], [address] Basophil percentageOrdered B y: Mckenna Penn on 02-06-2025 Basophils/100 WBC (Bld) 0.8 % 0-1 W [facility] CBC W/Diff, Automatedon 01-23 Absolute Lymph 2.86 X10 3/uL Normal 0.83-4.51 [facility] Comment on above: Performed By: #### L 100.0100, L500.2500, L501.9985 #### [facility] [address] [place], [address] Absolute Neut 5.1 X10 3/uL Normal 2.0-7.7 [facility] Comment on above: Performed By: #### L 100.0100, L500.2500, L501.9985 #### [facility] [address] [place], [address] Basophils/100 WBC (Bld) 0.8 % Normal 0-1 [facility] Comment on above: Performed By: #### L 100.0100, L500.2500, L501.9985 #### [facility] [address] [place], [address] Eosinophils/100 WBC (Bld) 3.6 % Normal 0-5 [facility] Comment on above: Performed By: #### L 100.0100, L500.2500, L501.9985 #### [facility] [address] [place], [address] Erythrocyte distribution width (RBC) [Ratio] 14.0 % Normal 11.6-14.6 [facility] Comment on above: Performed By: #### L 100.0100, L500.2500, L501.9985 #### [facility] [address] [place], [address] Hematocrit (Bld) [Volume fraction] 44.3 % Normal 40-54 [facility] Comment on above: Performed By: #### L 100.0100, L500.2500, L501.9985 #### [facility] [address] [place], [address] Hemoglobin (Bld) [Mass/Vol] 15.2 g/dL Normal 13.0-16.5 [facility] Comment on above: Performed By: #### L 100.0100, L500.2500, L501.9985 #### [facility] [address] [place], [address] IG% 0.400 Normal 0.0-0.9 [facility] Comment on above: Result Comment: IG% - Immature Granulocytes (promyelocytes, myelocytes and metamyelocytes) > 1% indicates that a LEFT SHIFT is Present. Performed By: #### L 100.0100, L500.2500, L501.9985 #### [facility] [address] [place], [address] Lymphocytes/100 WBC (Bld) 31.7 % Normal 19-41 [facility] Comment on above: Performed By: #### L 100.0100, L500.2500, L501.9985 #### [facility] [address] [place], [address] MCH (RBC) [Entitic mass] 32.1 pg High 27.0-32.0 [facility] Comment on above: Performed By: #### L 100.0100, L500.2500, L501.9985 #### [facility] [address] [place], [address] MCHC (RBC) [Mass/Vol] 34.3 g/dL Normal 32-36 [facility] Comment on above: Performed By: #### L 100.0100, L500.2500, L501.9985 #### [facility] [address] [place], [address] MCV (RBC) [Entitic vol] 93.7 fL Normal 80-94 [facility] Comment on above: Performed By: #### L 100.0100, L500.2500, L501.9985 #### [facility] [address] [place], [address] Monocytes/100 WBC (Bld) 7.1 % Normal 0-10 [facility] Comment on above: Performed By: #### L 100.0100, L500.2500, L501.9985 #### [facility] [address] [place], [address] Neutrophils/100 WBC (Bld) 56.4 % Normal 47-70 [facility] Comment on above: Performed By: #### L 100.0100, L500.2500, L501.9985 #### [facility] [address] [place], [address] Nucleated RBC (Bld) [#/Vol] 0 10*3/uL Normal 0-5 [facility] Comment on above: Performed By: #### L 100.0100, L500.2500, L501.9985 #### [facility] [address] [facility] [place], [address] Platelet mean volume (Bld) [Entitic vol] 10.3 fL Normal 6.2-12.0 [facility] Comment on above: Performed By: #### L 100.0100, L500.2500, L501.9985 #### [facility] [address] [place], [address] Platelets (Bld) [#/Vol] 216 10*3/uL Normal 150-450 [facility] Comment on above: Performed By: #### L 100.0100, L500.2500, L501.9985 #### [facility] [address] [place], [address] RBC (Bld) [#/Vol] 4.73 10*6/uL Normal 4.6-6.2 [facility] Comment on above: Performed By: #### L 100.0100, L500.2500, L501.9985 #### [facility] [address] [place], [address] RDW SD 48.6 fl High 35.1-43.9 [facility] Comment on above: Performed By: #### L 100.0100, L500.2500, L501.9985 #### [facility] [address] [place], [address] WBC (Bld) [#/Vol] 9.0 10*3/uL Normal 4.4-11.0 [facility] Comment on above: Performed By: #### L 100.0100, L500.2500, L501.9985 #### [facility] [address] [place], [address] Carbon dioxide, total [Moles /volume] in Central venous bloodOrdered By: Mckenna Penn on 02-06-2025 CO2 [Moles/Vol] 21.3 mmol/L 21.0-32.0 [facility] Chloride assayOrdered By: Ba Penn on 02-06-2025 Chloride [Moles/Vol] 103 mmol/L 98-108 [facility] Eosinophil percentageOrdered By: Mckenna Penn on 02-06-2025 Eosinophils/100 WBC (Bld) 3.6 % 0-5 [facility] Erythrocyte distribution wid th (RBC) [Ratio]Ordered By: Mckennashayne Penn on 02-06-2025 Erythrocyte distribution width (RBC) [Entitic vol] 48.6 fL High 35.1-43.9 [facility] Erythrocyte distribution wid th ratioOrdered By: Mckennashayne Penn on 02-06-2025 Erythrocyte distribution width (RBC) [Ratio] 14.0 % 11.6-14.6 [facility] GFR/1.73 sq M.predicted mo g non-blacks MDRD (S/P/Bld) [Vol rate/Area]Ordered By: Mckenna Penn on 02-06-2025 Estimated GFR (MDRD) Non-Af Amer 79 >60 [facility] Comment on above: mL/min/1.73m2 CKD-EP I Creatinine Equation (2020) Hematocrit Auto (Bld) [Volum e fraction]Ordered By: Mckenna Penn on 02-06-2025 Hematocrit (Bld) [Volume fraction] 44.3 % 40-54 [facility] Hemoglobin A1con 02-06-2025 HbA1c (Bld) [Mass fraction] 8.0 % High <=5.6 [facility] Comment on above: Result Comment: Norm al < 5.7 % Prediabetic 5.7 - 6.4 % Diabetic >or= 6.5 % Please note range changes. Performed By: #### L 100.0100, L500.2500, L501.9985 #### [facility] [address] [place], [address] Hemoglobin A1c percentageOrd ered By: Mckenna Penn on 02-06-2025 HbA1c (Bld) [Mass fraction] 8.0 % High <5.7 [facility] Comment on above: Normal < 5.7 % Predi abetic 5.7 - 6.4 % Diabetic >or= 6.5 % Please note range changes. Hemoglobin measurementOrdere d By: Mckenna Penn on 02-06-2025 Hemoglobin (Bld) [Mass/Vol] 15.2 g/dL 13.0-16.5 [facility] Immature granulocytes/100 WB C Auto (Bld)Ordered By: Mckenna Penn on 02-06-2025 Immature granulocytes/100 WBC (Bld) 0.400 % 0.0-0.9 [facility] Comment on above: IG% - Immature Granu locytes (promyelocytes, myelocytes and metamyelocytes) > 1% indicates that a LEFT SHIFT is Present. Lymphocytes Auto (Unsp spec) [#/Vol]Ordered By: Mckennashayne Penn on 02-06-2025 Lymphocytes (Bld) [#/Vol] 2.86 10*3/uL 0.83-4.51 [facility] Lymphocytes/100 WBC Auto (Un sp spec)Ordered By: Mckennashayne Penn on 02-06-2025 Lymphocytes/100 WBC (Bld) 31.7 % 19-41 [facility] MCV (mean corpuscular volume ) determinationOrdered By: [facility] Fili on 02-06-2025 MCV (RBC) [Entitic vol] 93.7 fL 80-94 [facility] Mean corpuscular hemoglobin (MCH) determinationOrdered By: [facility] on 02-06-2025 MCH (RBC) [Entitic mass] 32.1 pg High 27.0-32.0 [facility] Mean corpuscular hemoglobin concentration (MCHC) determinationOrdered By: Mckenna Fili 02-06-2025 MCHC (RBC) [Mass/Vol] 34.3 g/dL 32-36 [facility] Mean platelet volume determi nationOrdered By: [facility] 02-06-2025 Platelet mean volume (Bld) [Entitic vol] 10.3 fL 6.2-12.0 [facility] Monocyte percentageOrdered B y: Mckenna Penn on 02-06-2025 Monocytes/100 WBC (Bld) 7.1 % 0-10 [facility] Neutrophil percentageOrdered By: Mckennashayne Penn on 02-06-2025 Neutrophils/100 WBC (Bld) 56.4 % 47-70 [facility] Nucleated red blood cell per centageOrdered By: Mckenna Penn on 02-06-2025 Nucleated RBC/100 WBC (Bld) [Ratio] 0 % 0-5 [facility] Platelet countOrdered By: Ba Penn on 02-06-2025 Platelets (Bld) [#/Vol] 216 10*3/uL 150-450 [facility] Potassium (Unsp spec) [Mass/ Vol]Ordered By: Mckenna Penn on 02-06-2025 Potassium [Moles/Vol] 4.7 mmol/L 3.3-5.1 [facility] Comment on above: Hemolysis present, R esults could be affected. RBC Auto (Bld) [#/Vol]Ordere d By: Mckenna Penn on 02-06-2025 RBC (Bld) [#/Vol] 4.73 10*6/uL 4.6-6.2 [facility] Serum creatinine measurement (mass/volume)Ordered By: Mckenna Penn on 02-06-2025 Creatinine [Mass/Vol] 1.01 mg/dL 0.70-1.20 [facility] Serum glucose measurement (m ass/volume)Ordered By: Mckenna Penn on 02-06-2025 Glucose [Mass/Vol] 150 mg/dL High 70-99 [facility] Serum or plasma calcium tri urement (mass/volume)Ordered By: Mckenna Penn on 02-06-2025 Calcium [Mass/Vol] 8.9 mg/dL 7.6-11.0 [facility] Serum or plasma urea nitroge n measurement (mass/volume)Ordered By: Mckenna Penn on 02-06-2025 Urea nitrogen [Mass/Vol] 17 mg/dL 4-19 [facility] Sodium levelOrdered By: Keila Penn on 02-06-2025 Sodium [Moles/Vol] 136 mmol/L 133-145 [facility] White blood cell (WBC) count Ordered By: Mckenna Penn on 02-06-2025 WBC (Bld) [#/Vol] 9.0 10*3/uL 4.4-11.0 [facility] Modified Barium Swallow Stud yon 01-19-2025 Modified Barium Swallow Study [facility] Speech Pathology [address] [place] [address] Modified Barium Swallow Study MR#: [id number] Acct: [id number] Name: AGAPITO MESSER Rep #: [id number] : 1950 74 From: Kathryn Montero M.A., [facility] Modified Barium Swallow Patient Information Study Date: 01/19/25 Study Time: 12:20 Direct Billable Minutes: 92 Total Minutes procedure reportin Diagnosis: Dysphagia R13.10 Referring Physician: Luz Bacon Reason for Referral: Assess swallow function, assess risk for aspiration, and determine recommendations for least restrictive diet textures and compensatory strategies to facilitate safe po intake. Medical History: Patient was referred by Luz Bacon CNP at [facility]. Pt was recently seen for OV to manage dysphagia w/ hx of 2 prior EGDs w/ Dr. Dougherty with dilation of esophageal strictures (08/2020, 02/2022). During most recent EGD, he was told he had erosive esophagitis. He had a recent ED on visit 12/03/24 for complaints of food getting stuck. He is scheduled for repeat EGD 02/19/2025. He was referred for MBSS to further assess swallow function and determine any additional dysphagia interventions. He is also being considered for esophageal manometry. Patient reports difficulty swallowing >5 years. PNA during start of COVID. 2X/month he has difficulty clearing foods through his esophagus, but he feels his issue is getting worse. If liquid wash doesn't clear sensation of retention, he has to just wait. Carbonated liquid has regurgitated during liquid wash attempts ([employer] recommended trying a warm liquid). PMH: Traumatic amputation of ear and finger, Back pain, Arthritis, Kidney stones, CKD stage III, Delayed gastric emptying, DM. Current Diet Ordered: Regular / Thin liquids Dentition: Natural Teeth and Missing Teeth Mental Status: WNL Respiratory Status: Oxygenating on Room Air Penetration-Aspiration Scale Penetration-Aspiration Scale: OBJECTIVE ASSESSMENT OF SWALLOW FUNCTION (QUANTITATIVE ??? PER TRIAL): PENETRATION / ASPIRATION SCALE (WARD): 1 = does not enter airway 2 = enters airway/above vocal folds/ejected 3 = enters airway/above vocal folds/not ejected 4 = enters airway/contacts vocal folds/ejected 5 = enters airway/contacts vocal folds/not ejected 6 = enters airway/below vocal folds/ejected 7 = enters airway/below vocal folds/not ejected despite effort 8 = enters airway/below vocal folds/no effort VIDEOFLOROSCOPIC SCALE SCORE (WARD): Grade I = aspiration of material that has penetrated into the laryngeal vestibule, intact cough reflex Grade II = aspiration < 10 % of the bolus, intact cough reflex Grade III = aspiration of < 10 % of the bolus, reduced cough reflex or aspiration of > 10 % of the bolus, intact cough reflex Grade IV = aspiration of > 10 % of the bolus, reduced cough reflex Penetration-Aspiration Scale Score Thin Liquid via teaspoon: Result: 5= enters airways/contacts vocal folds/not ejected Comment: Delayed throat clear = effective. Thin Liquid via teaspoon Trial 2: Result: 3= enters airways/above vocal folds/not ejected Thin Liquid via sequential sips: cup: Result: 5= enters airways/contacts vocal folds/not ejected Thin Liquid via large single sip: cup: Result: 3= enters airways/above vocal folds/not ejected Comment: Cued cough = effective Thin Liquid via small single sip: cup Effortful swallow: Result: 1= does not enter airway [place] Thick Liquid via small single sip: cup: Result: 3= enters airways/above vocal folds/not ejected Pudding via teaspoon: Result: 1= does not enter airway Comment: Esophageal screen = Complete clearance. 1/2 Cookie: Result: 1= does not enter airway Comment: Esophageal screen - Retention in the middle esophagus. Thin Liquid via single sip: straw Effortful swallow: Result: 3= enters airways/above vocal folds/not ejected Thin Liquid via small single sip: cup Other: Result: 2= enter airway/above vocal folds/ejected Comment: Cued 3-second prep and effortful swallow Thin Liquid via small single sip: cup Effortful swallow Trial 2: Result: 3= enters airways/above vocal folds/not ejected Comment: Trace silent post prandial aspiration of residues that had remained on vocal folds from previous trials Oral Phase Labial Seal: Interlabial escape, no progression to anterior lip Tongue Control During Bolus Hold: Posterior escape of greater than half of bolus Bolus Preparation/Masticatio n: Slow prolonged chewing/mashing with complete recollection Bolus Transport/Lingual Motion: Delayed initiation of tongue motion Oral Residue: Trace residue lining oral structures Pharyngeal Phase Initiation of Pharyngeal Swallow: Bolus head in pyriforms Soft Palate Elevation: Trace column of contrast/air between soft palate and pharyngeal wall Laryngeal Elevation: Partial superior movement thyroid cart/partial apprx aryt-ep (more content not included)... Normal [facility] Gastric Emptying Studyon Gastric Emptying Study [facility] Imaging Services [address] [place], [place] [address] Gastric Emptying Study MR#: [id number] Acct: [id number] Name: AGAPITO MESSER Rep #: [id number] : 1950 M 74 From: Cooper longoria MD PCP: [facility] Status: REG CLI Study: Gastric Emptying Study Date of Exam: 01/11/25 Exam# [id number] Ordering Dr: Luz Bacon PROCEDURE: GASTRIC EMPTYING STUDY REASON FOR EXAM: PROLONGED FULLNESS TECHNIQUE: The patient ingested a mixture of 1 mCi of technetium sulfur colloid and oatmeal. A gastric emptying study was then obtained. RADIOPHARMACEUTICAL: 1 mCi of technetium labeled sulfur colloid. COMPARISON: None. FINDINGS: 72% of the radiopharmaceutical exited the stomach at 60 minutes. This is a normal study. NM/Gastric Emptying Study IMPRESSION: Normal gastric emptying examination. Reading Location: [employer]- CC: MARIZA Bacon; [facility] Chicken Picker: Signed Normal [facility] Abdomen/Pelvis without Conto n 01-02-2025 Abdomen/Pelvis without Cont [facility] Imaging Services [address], [place] [id number] Abdomen/Pelvis without Cont MR#: [id number] Acct: [id number] Name: AGAPITO MESSER Rep #: [id number] : 1950 M 74 From: Cooper longoria MD PCP: [facility] Status: REG CLI Study: Abdomen/Pelvis without Cont Date of Exam: 12/23 11/18 Exam# [id number] Ordering Dr: Rey Wallace MD PROCEDURE: ABDOMEN/PELVIS WITHOUT CONT REASON FOR EXAM: 1 year history of dysuria. History of kidney stones. TECHNIQUE: Abdomen and pelvis CT without intravenous contrast. COMPARISON: Comparison is made with prior study dated September 15, 2022. FINDINGS: Coronary artery calcification. Lung bases: Stable mild degree of increased linear markings at the lung bases suggestive of scarring. Liver: Unremarkable. Gallbladder: The gallbladder is contracted. Spleen: Unremarkable. Pancreas: Unremarkable. Adrenals: Unremarkable. Kidneys: Stable 2 cm cyst in the anterior upper pole of the right kidney. Stable 2 mm calculus in the upper pole calyx of the right kidney. Stable small left parapelvic cyst. No evidence of obstructive uropathy. Bladder: Unremarkable. Calcification of the vas deferens. Small umbilical hernia containing fat. No evidence of hydronephrosis. Bowel: Colonic diverticulosis without diverticulitis. Appendix: Normal. Lymph nodes: No suspicious lymph node enlargement. Vasculature: Mild diffuse atherosclerotic calcifications are noted. Peritoneum / Retroperitoneum: No ascites. No free air. Bones: Degenerative changes of the spine. CT/Abdomen/Pelvis without Cont IMPRESSION: Nonobstructive right intrarenal calculus. Stable right renal cyst. One or more dose reduction techniques were used (e.g., Automated exposure control, adjustment of the mA and/or kV according to patient size, use of iterative reconstruction technique). Reading Location: [employer] CC: Dr. Rey Wallace MD; [facility] Chicken Picker: Signed Normal [facility] PSA, total screeningOrdered By: Shakira Dee on 01-01-2025 Prostate Specific Antigen Screen 0.25 ng/mL 0.02-4.00 [facility] Comment on above: This test was perfor med using the [facility] [employer] tPSA method. Measured values of a patient sample can vary depending on the testing procedure used. PSA values determined on patient samples by different testing procedures cannot be used interchangeably. If there is a change in PSA assays while monitoring therapy, sequential testing should be performed to confirm baseline values. PSA,Total - Annual Screenon 01-01-2025 PSA,TOT SCREEN 0.25 ng/mL Normal 0.02-4.00 [facility] Comment on above: Result Comment: This test was performed using the [employer] tPSA method. Measured values of a patient??sample can vary depending on the testing procedure used. PSA values determined on patient samples by different testing procedures cannot be used interchangeably. If there is a change in PSA assays while monitoring therapy, sequential testing should be performed to confirm baseline values. Performed By: #### L 501.9910 #### [facility] [address] [place], [place], [address] L/S Spine Bending Flex/[place] 12-25-2024 L/S Spine Bending Flex/Ext [facility] Imaging Services [address] [place] [address] L/S Spine Bending Flex/Ext MR#: [id number] Acct: [id number] Name: AGAPITO MESSER Rep #: [id number] : 1950 M 74 From: Alcides Martinez MD PCP: [facility] Status: DEP AMB Study: L/S Spine Bending Flex/Ext Date of Exam: 12/25 Exam# [id number] Ordering Dr: Tori Hernandez EXAM: XR Lumbosacral Spine Flexion/Extension Only, 2 or 3 Views CLINICAL INDICATION: TECHNIQUE: Lateral flexion/extension views of the lumbar spine and sacrum. COMPARISON: No relevant prior studies available. FINDINGS: VERTEBRAE: Moderate facet arthropathy of L4 to S1. Normal sagittal alignment. No acute fracture. No significant dynamic instability. SACRUM/COCCYX: Unremarkable as visualized. No acute fracture. DISC SPACES: No acute findings. No significant narrowing. SOFT TISSUES: Unremarkable. RAD/L/S Spine Bending Flex/Ext IMPRESSION: No acute findings in the lumbar spine. Reading Location[facility] CC: RANDALL Adorno; [facility] Chicken Picker: Signed Normal [facility] Orthopedic Visit Reporton Orthopedic Visit Report [facility] [address] [place] [address] OFFICE VISIT Date of Service: 12/25/24 MR#: [id number] Acct: [id number] Name: AGAPITO MESSER Rep #: [id number] : 1950 Provider: Dr. Marcos Archer MD Age/Sex: 74/M Location: [place] Status: Signed Intake Vital Signs 12/20/22 10:38 12/25/24 13:03 Height 6 ft 6 ft Weight: 186 lb 4 oz BMI 25.2 Intake Visit Reasons: LUMBAR SPINE Chief Complaint: food getting stuck Allergies hydrocodone (From Vicodin) Allergy (Verified 12/20/22 10:41) Rash celecoxib (From Celebrex) Adverse Reaction (Verified 12/20/22 10:41) goofy Have you fallen in the past year?: No PFSH Medical History Traumatic amputation of ear Finger amputation, traumatic Enlarged prostate Back pain Arthritis Kidney stones Surgical History H/O lithotripsy Social History Smoking Status: Current every day smoker tobacco type: cigarettes alcohol intake: never substance use type: does not use HPI LUMBAR SPINE Details: This documentation accurately reflects the service provided and the decisions made by me, Dr. Marcos Archer MD 12/25/24 1300. Part of today???s visit was documented by Mona FREEMAN, acting as scribe. AGAPITO MESSER is a 74 year old M here today NEW patient for low back pain. Patient was referred by Dr. Bro and has been seeing him since 2016. He states that on 11/17/24 he had an ablation and cortisone injection on the left as well which gave him relief for 2 weeks but after that he started having pain again. He does get numbness in the ball of his feet and tingling in his toes. The worst of his pain is in his tailbone and radiates up to his waist line which can be bilateral but mainly on the left. He does get pain when he urinates or empties his bowel that has been going on since January of 2024. He sometimes has a pain in his bladder or whenever he has gas it causes him back pain as well. He did have a recent MRI on 09/26/24. He did do PT 10 years ago at [facility] but he had to stop as it was increasing his pain. Ortho Exam General General: Yes no acute distress Neurologic: Yes alert and Yes oriented x3 Spine SPINE TESTING CERVICAL THORACIC LUMBAR Musculoskeletal Strength 0=absent - 5=normal Details: Exams of the back shows midline and bilateral paraspinal tenderness in lower lumbar spine. Neurologic patient lower extremity shows 5 x 5 power in all muscles normal sensations in all dermatomes. There is no hyperreflexia. Coding Level of Care Code Off vis,new,level 4 Diagnoses Spondylosis of lumbar region without myelopathy or radiculopathy M47.816 Spondylolisthesis, lumbar region M43.16 Time Spent (min) 45 Assessment and Plan Assessment and Plan (1) Spondylosis of lumbar region without myelopathy or radiculopathy: Status: Acute (2) Spondylolisthesis, lumbar region: Status: Acute Orders: Orders L/S Spine Bending Flex/Ext Today M54.50 - Low back pain, unspecified Plan Obtain flexion-extension x-rays of lumbar spine today in clinic. These show L4-5 subtle spondylolisthesis without significant instability. Multilevel facet arthrosis noticed. Disc height is well-maintained. MRI from September was reviewed. This is also does not show significant stenosis throughout the lumbar spine. Explained to him the imaging findings. Explained to him that his urological symptoms of burning micturition and difficulty with ejaculation are not related to his back. He has absolutely no significant stenosis in the lumbar spine. Discussed options of seeing a urologist and controlling his diabetes better. He mentioned that his last A1c was more than 8. Discussed numbness in the legs and feet related to diabetes, As there is no stenosis in the lumbar spine. Discussed treatment options for facet arthrosis and subtle instability in the lumbar spine. Patient has had temporary improvement with nerve blocks and radiofrequency ablations. Once his diabetes is in better control he may reach out to us for a follow-up to discuss possible treatments for facet arthrosis such as medial branch transection. Patient was in agreement. Clinical Quality Measures Falls Risk Screening/Assistive Devices Have you fallen in the past year?: No 12/25/24 1357 Date Marcos Rodas Signature: Date (if applicable) CC: Dr. Kumar Bro MD Normal [facility] Gastroenterology Visit Repor ton 12-18-2024 Gastroenterology Visit Report [facility] [address] [place] [address] OFFICE VISIT Date of Service: 12/18/24 MR#: [id number] Acct: [id number] Name: AGAPITO MESSER Rep #: [id number] : 1950 Provider: MARIZA spring Age/Sex: 74/M Location[place] [facility] Status: Signed Intake Vital Signs 12/20/22 10:38 Height 6 ft Intake Visit Reasons: Dysphagia Chief Complaint: food getting stuck Allergies hydrocodone (From Vicodin) Allergy (Verified 12/20/22 10:41) Rash celecoxib (From Celebrex) Adverse Reaction (Verified 12/20/22 10:41) goofy Have you fallen in the past year?: No Nurse's Note: Pt was scheduled for EGD on 02.19.25 at the end of their appt today. Reviewed prep instructions and which medications to hold prior to procedure with pt in office. A paper copy of EGD prep instructions were given to pt. Pt denies any questions or concerns at this time. [facility] Medical History Traumatic amputation of ear Finger amputation, traumatic Enlarged prostate Back pain Arthritis Kidney stones Surgical History H/O lithotripsy Social History Smoking Status: Current every day smoker tobacco type: cigarettes alcohol intake: never substance use type: does not use HPI HPI Chief Complaint: food getting stuck Details: AGAPITO MESSER, is a 74 M who presents to the office today for establishment with [facility] for difficulty swallowing with a history having 2 prior EGDs with dilation of esophageal strictures, one in August 2020 and second in February [address] Dougherty and was told he had erosive esophagitis. He had a recent ED on visit 12/03/24 for complaints of food getting stuck, a piece of steak lodged in lower chest/upper abdomen, it felt like I was choking, but I could breathe. No treatments were required during ED visit as the food bolus advanced on its own, they did increase his pantoprazole to 40mg twice daily. He reports much less reflux and difficulty swallowing since increasing the pantoprazole and recommending a soft diet. 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 He reports some difficulty chewing due to poor dentition and missing teeth, frequent throat clearing with phlegm, and feels like food comes up with a belch, and constipation. He states that he feels that whatever he eats doesn't leave his stomach like it should. He denies early satiety or reduced appetite. He states his stools have varying calibers, ranging from bullet-sized to lund, and strains with each. PCP has him taking Metamucil several times a day and he feels like that's finally starting to work. He denies heartburn, nausea, emesis, abdominal bloating and pain, excessive belching and flatulence, diarrhea, hematochezia, and melena. He states that his last colonoscopy was in 2022, no abnormalities found and was told to repeat in 10 years. ROS Const Constitutional: Positive for fatigue, headache(s) and weakness; No chills, fever(s) or weight change Eyes Eyes: No blurry vision or change in vision ENT ENT: Positive for hearing loss, tinnitus, headache(s) and difficulty swallowing Resp Respiratory: Positive for cough Cough: Yes productive Cardio Cardiology: No chest pain at rest, chest pain with exertion or leg pain with exertion Gastro GI: Positive for abdominal pain, bloating, change in bowel habits, constipation, heartburn, difficulty swallowing, excessive flatus and nausea/dyspepsia; No belching, change in stool character, coffee ground emesis, cramping, diarrhea, feeling full early, incontinent of stools, Vomiting blood/hematemesis, Blood in stool, loose stools, Black,tarry stools, pain with swallowing, vomiting or other Genitourinary Male: No difficulty urinating Musc Musculoskeletal: Positive for abnormal gait, joint pain, back pain, joint swelling, muscle cramps, muscle weakness, numbness, stiffness, tingling and Arthritis; No leg pain with exertion Skin Skin: No yellowing of the eye or itchy eyes Neuro Neurology: Positive for abnormal gait, weakness, headache(s), numbness and tingling Psych Psychiatric: Positive for anxiety, No depression and Positive for paranoia Endo Endocrine: Positive for fatigue; No cold intolerance, heat intolerance or weight change Aller/Imm Allergy/Immunologic: Positive for food intolerance (small, frequent, moist bites); No itchy eyes Jhon/Lymp Hematologic/Lymphatic: Positive for easy bruising; No easy bleeding Exam Const General: cooperative, healthy appearing, comfortable and no acute distress Nutritional Appearance: average body habitus Orientation: alert an (more content not included)... Normal [facility] 11-15-2024 [facility] Telephone ([facility]) AGAPITO MESSER ([id number]) 1950 M Date Time Provider Department 11/15/24 JAMES ELIZALDE RUST During your visit today, we recorded the following information about you: James Elizalde PA 11/15/2024 7:12 AM Signed Negative COVID flu RSV Lluvia Roger MA 11/15/2024 8:47 AM Signed Patient given results and verbalized understanding of instructions given. Lluvia Roger MA Allergies As of Date: 11/15/2024 Noted Allergy Reaction AMOXICILLIN 09/18/2022 5 - Intolerance 8 - GI Upset 12 - Shortness of Breath BUPROPION 09/18/2022 16 - Unknown 8 - GI Upset CELEBREX (CELECOXIB) 10/04/2020 1 - Mental Status Change HYDROCODONE 08/08/2022 2 - Rash METFORMIN 11/24/2017 8 - GI Upset VARENICLINE 09/18/2022 16 - Unknown Comments: makes him loopy VICODIN (HYDROCODONE-ACETAMINO PHE*10/04/2020 4 - Hives Comments: tightness in chest Date Reviewed: 11/14/2024 Reviewed by: Tomas Oneal PA-C - Fully Assessed Reason for Visit: Results [95] Prescriptions as of 11/15/2024 - benzonatate (TESSALON PERLE) 100 mg capsule Take 1-2 capsules by mouth three times a day as needed for cough for up to 7 days. - guaiFENesin (MUCINEX) 600 mg 12 hr tablet Take 2 tablets by mouth two times a day for 7 days. - fluticasone (FLONASE) 50 mcg/actuation nasal spray Use 2 Sprays in each nostril once daily. Rinse mouth after use. - albuterol HFA (PROAIR HFA) 90 mcg/actuation inhaler Inhale 2 Puffs as instructed every 6 hours as needed. - docusate sodium (COLACE) 100 mg capsule 100 mg. - omega 4-inb-qcx-fish oil (FISH OIL) 100-160-1,000 mg cap Take 1,000 mg by mouth once daily. - cholecalciferol, vitamin D3, 10 mcg (400 unit) cap 2,000 Units. - alfuzosin SR (UROXATRAL) 10 mg 24 hr tablet Take 10 mg by mouth. - aspirin 81 mg chewable tablet Take 81 mg by mouth. - glimepiride (AMARYL) 4 mg tablet Take 4 mg by mouth. - gabapentin (NEURONTIN) 300 mg capsule 300 mg. - morphine SR (MS CONTIN, ORAMORPH SR) 15 mg 12 hr tablet take 1 tablet by mouth three times a day if needed for pain - meloxicam (MOBIC) 15 mg tablet 15 mg. - tamsulosin (FLOMAX) 0.4 mg Take 0.4 mg by mouth. - ondansetron orally disintegrating (ZOFRAN ODT) 4 mg disintegrating tablet 4 mg three times daily. Problem List As Of Date 11/15/2024 Noted Resolved Transient ischemic attack [G45.9] 11/14/2024 Diabetes mellitus (HCC) [E11.9] 11/14/2024 Stage 3 chronic kidney disease (HCC) [N18.30] 11/14/2024 Recurrent major depression (HCC) [F33.9] 11/14/2024 Mixed anxiety depressive disorder [F41.8] 11/14/2024 Hypertension [I10] 11/14/2024 Gastroesophageal reflux disease [K21.9] 11/14/2024 Encounter Status:Closed by LLUVIA ROGER on 11/15/24 Normal [facility] CNOVon 11-14-2024 CNOV Office Visit ([facility] ) AGAPITO MESSER ([id number]) 1950 M Date Time Provider Department 11/14/24 1:30 PM [facility] During your visit today, we recorded the following information about you: Temperature Pulse Respiration Blood pressure 98.7 degrees 138/minute 18/minute 134/72 Weight 86.3 kg Tomas Oneal PA-C 11/14/2024 1:54 PM Signed Viral Syndrome Your doctor wanted you to have the following information about viral syndrome... You are getting this information because you have symptoms related to a viral syndrome. Your body is actively fighting a virus. There are many viruses and they can cause different symptoms depending on what body part they attack. Some symptoms of a viral syndrome are: Fever (temperature higher than 100.4?F or 38?C). Headaches. Fatigue (feeling tired) and body soreness. A clogged-up or runny nose. Sore throat. Cough. Rash. Nausea (feeling sick to the stomach) and vomiting (throwing up). Diarrhea (watery poop). Stomach cramps. Basic care for a viral syndrome is to rest and drink lots of fluids. You will feel better over time. Recommended non-prescription medications by symptom Cough, Non-productive (not coughing up phlegm) - Cough suppressant containing dextromethorphan (Robitussin? DM or Delsym?) Cough, Productive (coughing up phlegm) - Cough suppressant (see above) - Expectorant: Mucinex? tablets or plain guaifenesin syrup, also known as Robitussin? Fever/Headache/Muscle Aches - Acetaminophen (Tylenol?) - Non-Steroidal Anti-Inflammatory Drugs (NSAIDs) such as ibuprofen (Advil?) or naproxen (Aleve?) Nasal Stuffiness Saline nasal spray or a Neti Pot. - Nasal steroid sprays: Flonase? or Nasacort? - Decongestants: Topical spray: Oxymetazoline (Afrin? Nasal Wheeler); limit to 3-4 days maximum Oral medication: Pseudoephedrine (Sudafed?) - MUST BE PURCHASED FROM PHARMACIST Runny and/or Itchy Nose/Sneezing - Nasal steroid sprays: Flonase? or Nasacort? - Antihistamine: Benadryl?, which will likely cause drowsiness, or Loratadine (Alavert?), which is not as likely to cause drowsiness Sore Throat Pain Relief - Suck on throat lozenges, hard candy or popsicles - Gargle with warm salt water (1/4 tsp. salt per 8 oz. of water); and eat soft, bland foods. - Take acetaminophen (Tylenol?) or ibuprofen (Advil?). - Try throat sprays (Chloraseptic?). Unfortunately, there is still no cure for most viruses. Antibiotics don't work for viral illnesses. Antibiotics may cause side effects like rash or diarrhea (watery poop). Taking antibiotics when they are not needed might stop them from working if you get a bacterial infection later. Some serious infections can feel like a viral syndrome in the first few days. So it is important to watch your symptoms. See your doctor if you feel worse. See your doctor or go to the nearest Emergency Department if you: Have a fever (temperature higher than 100.4?F or 38?C) that won't go away. Have painful headache or stiff neck. Have constant vomiting or diarrhea (watery poop). Feel lightheaded, faint or might pass out. Have trouble breathing or shortness of breath. Feel confused or cannot think clearly. Are weak and cannot walk. Contact your doctor if you have any questions. If you think your symptoms are worse, go to the Emergency Department to be seen by a doctor. Tomas Oneal PA-C 11/14/2024 2:03 PM Signed Subjective Agapito Messer is a 74 year old male with a past medical history of hypertension, GERD, CKD, diabetes, depression, anxiety, and TIA who [facility] of cough, nasal congestion, and headache x 2 days. No fevers. No known exposure to COVID-19, influenza, RSV, or strep pharyngitis. Review of Systems Constitutional: Negative for chills, diaphoresis and fever. HENT: Positive for congestion. Eyes: Negative for discharge and redness. Respiratory: Positive for cough. Musculoskeletal: Negative for back pain and neck pain. Skin: Negative for rash and wound. Neurological: Positive for headaches. Negative for weakness. All other systems reviewed and are negative. Objective BP 134/72 Pulse (!) 138 Temp 37.1 ?C (98.7 ?F) Resp 18 Wt 86.3 kg (190 lb 4.1 oz) SpO2 96% Physical Exam Vitals reviewed. Constitutional: General: He is not in acute distress. Appearance: Normal appearance. He is normal weight. He is not ill-appearing or toxic-appearing. Comments: The patient appears to be non-toxic, in no acute distress, and resting comfortably on the table. HENT: Head: Normocephalic and atraumatic. Eyes: Extraocular Movements: Extraocular movements intact. Cardiovascular: Rate and Rhythm: Normal rate and regular rhythm. Heart sounds: Normal heart sounds. No murmur heard. No friction rub. No gallop. Pulmonary: Effor (more content not included)... Normal [facility] COVID AND INFLUENZA A/B AND RSV PCR, ROUTINEon 11-14-2024 SARS-CoV-2 (COVID-19) RNA ISABEL+probe Ql (Unsp spec) SARS-COV-2 (AGENT OF COVID-19) RNA: Not detected INFLUENZA A RNA: Not detected INFLUENZA B RNA: Not detected RESPIRATORY SYNCYTIAL VIRUS (RSV) RNA: Not detected Normal [facility] Comment on above: Performed By: #### C VFLRS #### [facility] CLIA [id number] [address] [place], [place] [id number] [address] [address] [place] Spine Lumbar (Routine)on Spine Lumbar (Routine) [facility] Imaging Services [address] [place] [address] Spine Lumbar (Routine) MR#: [id number] Acct: [id number] Name: AGAPITO MESSER Rep #: [id number] : 1950 M 73 From: Gabriela vo MD PCP: [facility] Status: REG CLI Study: Spine Lumbar (Routine) Date of Exam: 09/26/24 Exam# [id number] Ordering Dr: Larisa Leal [id number] HISTORY: RT FOOT DROP, low back pain without injury. TECHNIQUE: Multiplanar and multisequence MR images of the lumbar spine were obtained without intravenous contrast. 150 images. COMPARISON: XR 04/18/2024. FINDINGS: VERTEBRAE: Vertebral body heights maintained. Mild degenerative endplate changes with a Schmorl''s node at the L3 inferior endplate. No significant bone marrow signal abnormality. ALIGNMENT: No anterior or posterior subluxation. CONUS: Normal morphology and position of the conus medullaris at L1-2. INTERVERTEBRAL DISCS: T12-L1: No significant signal abnormality, posterior disc protrusion, central canal stenosis, or foraminal narrowing based on the sagittal images. L1-2: No significant signal abnormality, posterior disc protrusion, central canal stenosis, or foraminal narrowing. L2-3: Minimal disc bulge and facet arthropathy without significant central canal stenosis. Mild left foraminal narrowing. L3-4: Minimal disc bulge and facet arthropathy resulting in mild bilateral foraminal narrowing and no significant central canal stenosis. L4-5: Minimal disc bulge and moderate facet arthropathy resulting in mild bilateral foraminal narrowing and no significant central canal stenosis. L5-S1: No significant posterior disc protrusion or central canal stenosis. Moderate facet arthropathy with mild bilateral foraminal narrowing. SOFT TISSUES: No paraspinal fluid collection. Mild subcutaneous edema posterior to the sacrum. Bilateral renal cysts measuring up to 2.6 cm on the right. MRI/Spine Lumbar (Routine) IMPRESSION: Very mild degenerative change of the lumbar spine without significant spinal canal stenosis. Mild bilateral foraminal narrowing as above. Electronically Signed: Gabriela Brown MD at 14:40 EST , CC: [facility] Chicken Picker: Signed Normal [facility] CT THORAX SCREENING W/O CONT [facility] 05-16-2024 CT THORAX SCREENING W/O CONTRAST ORIGINAL EXAMINATION: LOW DOSE SCREENING CT OF THE CHEST WITHOUT CONTRAST05/12/2024 4:33 pm TECHNIQUE: Low dose lung cancer screening CT of the chest was performed without the administration of intravenous contrast. Multiplanar reformatted images are provided for review. Automated exposure control, iterative reconstruction, and/or weight based adjustment of the mA/kV was utilized to reduce the radiation dose to as low as reasonably achievable. COMPARISON: 03/29/2023 HISTORY: ORDERING SYSTEM PROVIDED HISTORY: Reason for Exam: LUNG CA SCREENING 73-year-old male with 53 pack-years smoking history. FINDINGS: The heart is normal in size. No pericardial effusion. Atherosclerosis seen of the coronary arteries and aorta. The great vessels appear normal in caliber. No lymphadenopathy is visible on this unenhanced exam. Small hiatal hernia. Nonobstructive right-sided nephrolithiasis measuring up to 0.3 cm. There is a stable appearing likely parapelvic renal cyst. The abdomen is not evaluated in detail. Trachea and mainstem bronchi are patent. No suspicious endotracheal or endobronchial nodule is demonstrated. Scattered areas of pleuroparenchymal scarring. Mild paraseptal emphysema. Peripheral honeycombing is visualized in the lungs bilaterally, more prominent in the mid and lower lung zones, likely indicating pulmonary fibrosis related to interstitial lung disease. There is some micronodular changes associated with the interstitial disease, similar to the prior exam. No pneumothorax or pleural effusion. Reference nodule(s) annotated on series 2 (size, morphology, location): 0.2 cm nodule in the posterior right lower lobe (2;82). Small bilateral calcified granulomas. Other scattered micronodules throughout the lungs. No aggressive osseous lesions visible. Degenerative changes seen in the spine. IMPRESSION: Small lung nodules. For patients with appropriate lung cancer risk, annual low-dose CT (LDCT) screening is recommended. Coronary artery atherosclerosis. Nonobstructive right-sided nephrolithiasis. Emphysema with superimposed chronic interstitial lung disease . Information below is for Lung nodule tracking purposes: Nodule: S3 BLN Other Findings: P-CAC P-PFB Change: Na Recall : 1yr scr Recall Type: LDCT LungRads: 2s RECOMMENDATIONS: Lung-RADS: Category 2, Benign appearance or behavior. Management: Continue annual lung screening with LDCT in 12 months. S Modifier-may add on to category 0-4 coding. Management: As appropriate to specific finding. I have personally reviewed the images of this examination and agree with the resident's findings and interpretation. Interpreted by: Jr Gomes MD Preliminary Report By: Amaya Brown Electronically signed By Jr Gomes MD Dictated Date: 05/16/2024 10:26:20 AM Prelim Date: 05/16/2024 11:44:14 AM Sign Date: 05/16/2024 11:44:14 AM Ordering Provider: PHY REFERRING Normal [facility] ([place]) Lumbar Spine 2 or 3 Viewson 04-18-2024 Lumbar Spine 2 or 3 Views [facility] Imaging Services [address] [place], [place] [address] Lumbar Spine 2 or 3 Views MR#: [id number] Acct: [id number] Name: AGAPITO MESSER Rep #: [id number] : 1950 73 From: Nelson Roberts MD PCP: [facility] Status: REG CLI Study: Lumbar Spine 2 or 3 Views Date of Exam: Exam# [id number] Ordering Dr: Kumar Bro [place] [id number] STUDY: X-RAY - LUMBAR SPINE REASON FOR EXAM: Male, 73 years old. Radiculopathy. TECHNIQUE: 3 view(s) of the lumbar spine were obtained. COMPARISON: None FINDINGS: Osteopenia. Normal lumbar lordosis. No scoliosis. 2 mm of anterolisthesis of L4 on L5 and 4 mm of anterolisthesis of L5 on S1. Endplate concavities of the vertebral bodies compatible with osteoporosis. Intervertebral disc space narrowing most marked at L3-4 and L5-S1 with osteophytes most marked at L3-4. Marked vascular calcification. RAD/Lumbar Spine 2 or 3 Views IMPRESSION: Osteopenia with lower thoracic and lumbosacral spondylosis as described. No acute abnormality or erosive changes. Electronically Signed: Nelson Roberts MD at 10:34 EDT Reading Location ID and State: [address] [place] [address] , Service support , CC: Dr. Kumar Bro MD; [facility] Chicken Picker: Signed Normal [facility] Abdomen Single Viewon 2023 Abdomen Single View [facility] Imaging Services [address] [place] [address] Abdomen Single View MR#: [id number] Acct: [id number] Name: AGAPITO MESSER Rep #: [id number] : 1950 73 From: Nelson Roberts MD PCP: [facility] Status: REG CLI Study: Abdomen Single View Date of Exam: 04/11/24 Exam# [id number] Ordering Dr: Rey Wallace [place] [id number] STUDY: X-RAY - ABDOMEN/PELVIS REASON FOR EXAM: Male, 73 years old. Generalized abdominal pain. TECHNIQUE: Single AP view of the abdomen / pelvis. COMPARISON: None. FINDINGS: Normal bowel gas pattern with air seen to the rectum. Moderate to marked amount of feces in the colon. Intra-abdominal outlines mostly obscured by overlying bowel gas and feces. Normal soft tissue structures. Normal visualized osseous structures. RAD/Abdomen Single View IMPRESSION: No acute abnormality of the visualized abdomen or pelvis. Electronically Signed: Nelson Roberts MD at 9:27 EDT , CC: Dr. Rey Wallace MD; [facility] Chicken Picker: Signed Normal [facility] CNOVon 04-10-2024 CNOV Office Visit ([facility] ) AGAPITO MESSER ([id number]) 1950 M Date Time Provider Department 04/10/24 12:15 PM KUMAR OLIVARES RUST During your visit today, we recorded the following information about you: Temperature Pulse Respiration Blood pressure 98.2 degrees 125/minute 17/minute 132/62 Weight 85.1 kg Kumar Olivares APRN.COMMERCIAL DECORATOR 04/10/2024 12:40 PM Signed Subjective HPI Nontoxic-appearing male presents urgent care chief complaint flank pain. Duration of symptom 1 week. Associated symptoms flank pain abdominal pain. Patient states did have sharp pain. Did have some dysuria. States history of kidney stones this feels similar. Last stone was 5 mm. Has not used any OTC medications today. States he has been feeling nauseated and has had some hot flashes and night sweats. Presents today for evaluation. Concerned about possible UTI. Denies any productive cough hemoptysis chest pain or fevers. Past medical history prescription medications allergies reviewed. .Patient presents with: Urinary Problem: Burning with urination x 1 week History reviewed. No pertinent past medical history. History reviewed. No pertinent surgical history. ALLERGIES Amoxicillin, Bupropion, Celebrex [Celecoxib], Hydrocodone, Metformin, Varenicline, and Vicodin [Hydrocodone-Acetamino phen] MEDICATIONS fluticasone (FLONASE) 50 mcg/actuation nasal spray Use 2 Sprays in each nostril once daily. Rinse mouth after use. albuterol HFA (PROAIR HFA) 90 mcg/actuation inhaler Inhale 2 Puffs as instructed every 6 hours as needed. docusate sodium (COLACE) 100 mg capsule 100 mg. omega 2-zgq-lqd-fish oil (FISH OIL) 100-160-1,000 mg cap Take 1,000 mg by mouth once daily. cholecalciferol, vitamin D3, 10 mcg (400 unit) cap 2,000 Units. alfuzosin SR (UROXATRAL) 10 mg 24 hr tablet Take 10 mg by mouth. aspirin 81 mg chewable tablet Take 81 mg by mouth. glimepiride (AMARYL) 4 mg tablet Take 4 mg by mouth. gabapentin (NEURONTIN) 300 mg capsule 300 mg. morphine SR (MS CONTIN, ORAMORPH SR) 15 mg 12 hr tablet take 1 tablet by mouth three times a day if needed for pain meloxicam (MOBIC) 15 mg tablet 15 mg. ondansetron orally disintegrating (ZOFRAN ODT) 4 mg disintegrating tablet 4 mg three times daily. benzonatate (TESSALON PERLES) 100 mg capsule Take 2 capsules by mouth three times daily as needed. (Patient not taking: Reported on 04/10/2024) tamsulosin (FLOMAX) 0.4 mg Take 0.4 mg by mouth. (Patient not taking: Reported on 09/18/2022) History reviewed. No pertinent family history. Social History Tobacco Use Smoking status: Every Day Smokeless tobacco: Never BP 132/62 Pulse (!) 125 Temp 36.8 ?C (98.2 ?F) Resp 17 Wt 85.1 kg (187 lb 9.8 oz) SpO2 96% Review of Systems Constitutional: Positive for malaise/fatigue. Negative for chills and fever. HENT: Negative for congestion, ear discharge, ear pain, sinus pain and sore throat. Eyes: Negative for blurred vision, pain, discharge and redness. Respiratory: Negative for cough, hemoptysis, sputum production, shortness of breath, wheezing and stridor. Cardiovascular: Negative for chest pain. Gastrointestinal: Positive for nausea. Negative for abdominal pain, diarrhea and vomiting. Genitourinary: Positive for dysuria, flank pain, frequency and urgency. Negative for hematuria. Musculoskeletal: Positive for myalgias. Skin: Negative for itching and rash. Neurological: Negative for dizziness and headaches. Objective Physical Exam Constitutional: General: He is not in acute distress. Appearance: He is not diaphoretic. HENT: Head: Normocephalic. Mouth/Throat: Pharynx: Uvula midline. No pharyngeal swelling or uvula swelling. Eyes: Conjunctiva/sclera: Conjunctivae normal. Pupils: Pupils are equal, round, and reactive to light. Cardiovascular: Rate and Rhythm: Regular rhythm. Tachycardia present. Heart sounds: Normal heart sounds. Pulmonary: Effort: Pulmonary effort is normal. No tachypnea, accessory muscle usage or respiratory distress. Breath sounds: Normal breath sounds. No stridor. No wheezing, rhonchi or rales. Abdominal: General: There is no distension. Palpations: Abdomen is soft. Tenderness: There is no abdominal tenderness. There is left CVA tenderness. There is no guarding or rebound. Musculoskeletal: Cervical back: Normal range of motion and neck supple. No edema, erythema, rigidity or tenderness. No pain with movement. Normal range of motion. Lymphadenopathy: Cervical: No cervical adenopathy. Skin: General: Skin is warm and dry. Neurological: Mental Status: He is alert and oriented to person, place, and time. ASSESSMENT/PLAN: 1. Burning with urination - ICD9: 788.1, ICD10: R30.0 - UA DIP, URINE (POC) - URINE CULTURE Diagnosed with dysuria. No leukocytes blood or nitrites noted. Glucose was noted in urine. Patient is a (more content not included)... Normal [facility] LABORATORYOrdered By: SYSTEM SYSTEM on 12-23-2023 Prostate specific Ag [Mass/Vol] 0.27 ng/mL Normal 0.00 - 4.00 ng/mL AO ADM SS PSAon 12-23-2023 Prostate Specific Antigen 0.27 ng/mL Normal 0.00-4.00 [facility] ([place]) Comment on above: Performed By: #### P #### [address] [address] XR Chest 2 Viewson EXAMINATION: XR CHES T 2 VIEWS 06/15/2023 02:29 PM CLINICAL HISTORY: DYSPNEA ASSOCIATED DIAGNOSIS: Dyspnea, unspecified type ORDERING PROVIDER: [employer]U [employer] NOTE: COMPARISON: None FINDINGS: Cardiomediastinal silhouette: Normal. Lungs/Pleura: Hyperinflation from emphysema is noted. No evidence of pneumothorax. Musculoskeletal: Degenerative changes and changes from dish are noted involving the thoracic spine. Surgical anchors are noted in relationship to the right humeral head. IMPRESSION: Hyperinflation from pulmonary emphysema is noted. No evidence of active opacities. MACRO: None RADIOLOGY Gene Goldsmith MD - 06/15/2023 EXAMINATION: XR CHEST 2 VIEWS 06/15/2023 02:29 PM CLINICAL HISTORY: DYSPNEA ASSOCIATED DIAGNOSIS: Dyspnea, unspecified type ORDERING PROVIDER: [employer] NOTE: COMPARISON: None FINDINGS: Cardiomediastinal silhouette: Normal. Lungs/Pleura: Hyperinflation from emphysema is noted. No evidence of pneumothorax. Musculoskeletal: Degenerative changes and changes from dish are noted involving the thoracic spine. Surgical anchors are noted in relationship to the right humeral head. IMPRESSION: Hyperinflation from pulmonary emphysema is noted. No evidence of active opacities. MACRO: None [facility] Radiology Study observation (narrative) [facility] XR Chest 2 ViewsOrdered By: Gene Goldsmith on 06-15-2023 [facility] Work Phone: CT LD LUNG SCREENINGon 03-31 CT LD LUNG SCREENING AGAPITO MESSER Ma [id number] Ordering physician: Domenic Khan LOC:CAT [id number] Attending physician: Domenic Khan 1950 72 DOS: 03/29/23 Acc#: [id number] Exam/Proc: CT LD LUNG SCREENING Dept: COMPUTED TOMOGRAPHY EXAMINATION: LOW DOSE SCREENING CT OF THE CHEST WITHOUT CONTRAST03/29/2023 12:45 pm TECHNIQUE: Low dose lung cancer screening CT of the chest was performed without the administration of intravenous contrast. Multiplanar reformatted images are provided for review. Automated exposure control, iterative reconstruction, and/or weight based adjustment of the mA/kV was utilized to reduce the radiation dose to as low as reasonably achievable. COMPARISON: None. HISTORY: ORDERING SYSTEM PROVIDED HISTORY: TECHNOLOGIST PROVIDED HISTORY: Reason for Exam: 51 YEAR PACK HISTORY of smoking. FINDINGS: The heart is normal in size. Severe coronary artery calcifications present. There is atherosclerotic disease in the aorta with no aneurysm.. The great vessels appear normal in caliber. No lymphadenopathy is visible on this unenhanced exam. No suspicious findings seen in the visualized portion of the abdomen. The abdomen is not evaluated in detail. No pulmonary consolidation is identified. There is emphysematous change. There is mild subpleural reticulation. No pneumothorax or pleural effusion. No aggressive osseous lesions visible. Degenerative changes seen in the spine. IMPRESSION: No suspicious lung nodules. For patients with appropriate lung cancer risk, annual CT screening is recommended. Severe coronary artery calcification Information below is for Lung nodule tracking purposes: Nodule: NLN Other Findings: P-CAC Change: Na Recall : 1yr scr Recall Type: LDCT LungRads: 1s Electronically signed By Raymon Crandall MD 03/31/2023 7:11:02 PM EST Workstation ID : [id number] REPORT SIGNATURE ON FILE Electronically Signed Date/Time: 03/31/231910 Dictated Date/time: 03/31/23 190 CC: Normal [facility] Glucose Glucometer (BldC) [M ass/Vol]Ordered By: Dr. Flores on 12-20-2022 Glucose [Mass/Vol] 250 mg/dL 74-106 [facility] Comment on above: MANAGEMENT OF PATIEN T CARE PER NURSING PROTOCOL XR CHEST 2V FRONTAL/LATon [facility] XR Chest PA and Lateralon IMPRESSION: No acute radiographic abnormality. Chicken Picker: [email or web address] Transcribe Date/Time: Dec 16 2022 11:20A Dictated by : BRANDEN SCHULTZ MD This examination was interpreted and the report reviewed and electronically signed by: BRANDEN SCHULTZ MD on Dec 16 2022 11:21AM [facility] DIVISION OF RADIOLOGY * * *Final Report* * * DATE OF EXAM: Dec 16 2022 11:12AM WOX 5291 - XR CHEST 2V FRONTAL/LAT / PROCEDURE REASON: Bronchitis * * * * Physician Interpretation * * * * EXAMINATION: CHEST RADIOGRAPH (2 VIEW FRONTAL & LATERAL) CLINICAL HISTORY: Bronchitis MQ: XC2_6 EXAM DATE/TIME: 12/16/2022 11:12 AM COMPARISON: No relevant prior studies available. RESULT: Lines, tubes, and devices: None. Lungs and pleura: No consolidation. No lung mass. No pleural effusion. No pneumothorax. Cardiomediastinal silhouette: Normal cardiomediastinal silhouette. Bones and soft tissues: The spine shows degenerative changes. There are suture anchors in the right humeral head. DIVISION OF RADIOLOGY Provider, [facility] - 12/16/2022 * * *Final Report* * * DATE OF EXAM: Dec 16 2022 11:12AM WOX 5291 - XR CHEST 2V FRONTAL/LAT / PROCEDURE REASON: Bronchitis * * * * Physician Interpretation * * * * EXAMINATION: CHEST RADIOGRAPH (2 VIEW FRONTAL & LATERAL) CLINICAL HISTORY: Bronchitis MQ: XC2_6 EXAM DATE/TIME: 12/16/2022 11:12 AM COMPARISON: No relevant prior studies available. RESULT: Lines, tubes, and devices: None. Lungs and pleura: No consolidation. No lung mass. No pleural effusion. No pneumothorax. Cardiomediastinal silhouette: Normal cardiomediastinal silhouette. Bones and soft tissues: The spine shows degenerative changes. There are suture anchors in the right humeral head. IMPRESSION IMPRESSION: No acute radiographic abnormality. Chicken Picker: [email or web address] Transcribe Date/Time: Dec 16 2022 11:20A Dictated by : BRANDEN SCHULTZ MD This examination was interpreted and the report reviewed and electronically signed by: BRANDEN SCHULTZ MD on Dec 16 2022 11:21AM [facility] Radiology Study observation (narrative) [facility] XR Chest PA and LateralOrder ed By: [facility] Provider on 12-16-2022 [facility] LABORATORYOrdered By: Mini Dee on 11-17-2022 Albumin DL <= 20 mg/L (U) [Mass/Vol] 271 mcg/dL Invalid Interpretation Code AO ADM SS Albumin/Creatinine DL <= 20 mg/L (U) [Mass ratio] 7 mcg/mg Invalid Interpretation Code 0 - 30 mcg/mg AO ADM SS Creatinine (U) [Mass/Vol] 40.2 mg/dL Invalid Interpretation Code 39.0 - 259.0 mg/dL AO ADM SS Color of specimen determinat ionOrdered By: Dr. [place] on 09-21-2022 Color (Unsp spec) [facility] Laboratory - Miscellaneous t estsOrdered By: Dr. [place] on 09-21-2022 Service comment (Unsp spec) [Interp] See comment [facility] Comment on above: Physician questions regarding Calculi Analysis contact [facility] at: [phone]. Calculi report will follow via computer, mail or primer and powder canning leader delivery. Measurement of weight of sto neOrdered By: Dr. [place] on 09-21-2022 Weight (Stone) 50 mg [facility] No Panel InformationOrdered By: Dr. [place] on 09-21-2022 Stone Analysis (T) See comment [facility] Comment on above: Percentage (Represen ts the % composition) Stone Calcium Oxalate Monohydrate 100 % [facility] Origin of StoneOrdered By: Larisa [place] on 09-21-2022 Origin Nom (Stone) Not Provided [facility] Size of stoneOrdered By: Dr. [place] on 09-21-2022 Size (Stone) [Entitic vol] 4x4 mm [facility] Comment on above: Multiple pieces rece ived. Dimensions of the largest piece reported. Thin prep Papanicolaou smear with manual screeningOrdered By: Dr. [place] on 09-21-2022 Thin prep Papanicolaou smear with manual screening See comment [facility] Comment on above: Photograph will foll ow under a separate cover. GLUCOSE, BLOOD (POC)on 09-18 Glucose [Mass/Vol] 123 mg/dL Abnormal 74 - 99 mg/dL [facility] UA DIP, URINE (POC)on 2021 BILIRUBIN UA (POCT) Negative Negative [facility] CLARITY UA (POCT) Slightly Cloudy [facility] COLOR UA (POCT) Yellow [facility] GLUCOSE UA (POCT) >=1000 Abnormal Negative mg/dL [facility] HEMOGLOBIN/BLOOD UA (POCT) Negative Negative [facility] KETONE UA (POCT) Trace Negative mg/dL [facility] LEUKOCYTES [facility] (POCT) [facility] NITRITE UA (POCT) Negative Negative [facility] PH UA (POCT) 5.5 4.5 - 8.0 [facility] Protein Ql (U) Negative Negative mg/dL [facility] SPECIFIC GRAVITY UA (POCT) 1.025 1.005 - 1.030 [facility] UROBILINOGEN UA (POCT) 0.2 E.U./dL Ksenia l E.U./dL [facility] Absolute lymphocyte countOrd ered By: Dr. [place] on 09-15-2022 Lymphocytes Auto (Unsp spec) [#/Vol] 4.21 10*3/uL 0.83-4.51 [facility] Basophil percentageOrdered B y: ED PROVIDER on 09-15-2022 Basophil percentage 0 SEEN /hpf 0-5 [facility] Basophil percentageOrdered B y: Dr. [place] on 09-15-2022 Basophils/100 WBC (Bld) 0.5 % 0-1 [facility] Chloride [Moles/Vol] 108 mmol/L 98-107 [facility] Eosinophils/100 WBC (Bld) 3.0 % 0-5 [facility] Glucose [Mass/Vol] 204 mg/dL 74-106 [facility] Comment on above: Glucose result great er than or equal to 200 mg/dLsuggests DIABETES MELLITUS per A.D.A. criteria. Neutrophils (Bld) [#/Vol] 4.8 10*3/uL 2.0-7.7 [facility] Neutrophils/100 WBC (Bld) 47.1 % 47-70 [facility] Potassium [Moles/Vol] 4.4 mmol/L 3.5-5.1 [facility] Sodium [Moles/Vol] 140 mmol/L 136-145 [facility] WBC (Bld) [#/Vol] 10.2 10*3/uL 4.4-11.0 [facility] Bilirubin Test strip Ql (U)O rdered By: ED PROVIDER on 09-15-2022 Bilirubin Ql (U) Negative Negative [facility] Blood erythrocytes count (nu mber/volume)Ordered By: Dr. [place] on 09-15-2022 RBC (Bld) [#/Vol] 5.24 10*6/uL 4.6-6.2 [facility] Blood hemoglobin measurement (mass/volume)Ordered By: Dr. [place] on 09-15-2022 Hemoglobin (Bld) [Mass/Vol] 16.4 g/dL 13.0-16.5 [facility] Blood lymphocytes/100 leukoc ytesOrdered By: Dr. [place] on 09-15-2022 Lymphocytes/100 WBC (Bld) 41.4 % 19-41 [facility] Blood monocytes/100 leukocyt esOrdered By: Dr. [place] on 09-15-2022 Monocytes/100 WBC (Bld) 7.6 % 0-10 W [facility] Blood platelet mean volumeOr dered By: Dr. [place] on 09-15-2022 Platelet mean volume (Bld) [Entitic vol] 10.4 fL 6.2-12.0 [facility] Determination of erythrocyte mean corpuscular volume (MCV)Ordered By: Dr. Griffin on 09-15-2022 MCV (RBC) [Entitic vol] 93.7 fL 80-94 W [facility] Hematocrit Auto (Bld) [Volum e fraction]Ordered By: Dr. [place] on 09-15-2022 Hematocrit (Bld) [Volume fraction] 49.1 % 40-54 [facility] Ketones Test strip Ql (U)Ord ered By: ED PROVIDER on 09-15-2022 Ketones Ql (U) 5 mg/dl Negative [facility] Laboratory - Chemistry and C hemistry - challengeOrdered By: Dr. [place] on 09-15-2022 CO2 [Moles/Vol] 26.0 mmol/L 21.0-32.0 [facility] Urea nitrogen/Creatinine [Mass ratio] 13.9 mg/mg 10-20 [facility] Laboratory - Hematology and Cell countsOrdered By: Dr. [place] on 09-15-2022 Erythrocyte distribution width (RBC) [Entitic vol] 47.7 fL 35.1-43.9 [facility] Erythrocyte distribution width (RBC) [Ratio] 13.7 % 11.6-14.6 [facility] Immature granulocytes/100 WBC (Bld) 0.400 % 0.0-0.9 [facility] Comment on above: IG% - Immature Granu locytes (promyelocytes, myelocytes and metamyelocytes) > 1% indicates that a LEFT SHIFT is Present. MCH (RBC) [Entitic mass] 31.3 pg 27.0-32.0 [facility] Nucleated RBC/100 WBC (Bld) [Ratio] 0 % 0-5 [facility] MCHC Auto (RBC) [Mass/Vol]Or dered By: Dr. [place] on 09-15-2022 MCHC (RBC) [Mass/Vol] 33.4 g/dL 32-36 [facility] Mucus LM Ql (Urine sed)Order ed By: ED PROVIDER on 09-15-2022 Mucus Ql (Urine sed) 0 SEEN /hpf [facility] Nitrite Test strip Ql (U)Ord ered By: ED PROVIDER on 09-15-2022 Nitrite Ql (U) Negative Negative [facility] No Panel InformationOrdered By: Dr. [place] on 09-15-2022 Estimated Creatinine Clearance Calc 61.84 ml/min [facility] Estimated GFR (MDRD) Amer 75 mL/min >60 [facility] Comment on above: GFR Calc Estimated GFR (MDRD) Non-Af Amer 62 mL/min >60 [facility] Comment on above: Non- GFR Calc Platelets bldOrdered By: Dr. Griffin on 09-15-2022 Platelets (Bld) [#/Vol] 186 10*3/uL 150-450 [facility] Protein Test strip Ql (U)Ord ered By: ED PROVIDER on 09-15-2022 Protein Ql (U) Negative Negative [facility] Serum or plasma calcium tri urement (mass/volume)Ordered By: Dr. Griffin on 09-15-2022 Calcium [Mass/Vol] 9.6 mg/dL 8.5-10.1 [facility] Serum or plasma creatinine m easurement (mass/volume)Ordered By: Dr. Griffin on 09-15-2022 Creatinine [Mass/Vol] 1.22 mg/dL 0.70-1.30 [facility] Comment on above: The validity of the calculated GFR & GFRAA in patients over 70 years has not been determined. Clinical correlation is essential. Serum or plasma urea nitroge n measurement (mass/volume)Ordered By: Dr. Griffin on 09-15-2022 Urea nitrogen [Mass/Vol] 17 mg/dL 7-18 [facility] Squamous epithelial cells de tection in urine sediment by light microscopyOrdered By: ED PROVIDER on 09-15-2022 Epithelial cells.squamous LM Ql (Urine sed) 0 SEEN /hpf 0-5 [facility] Thin prep Papanicolaou smear with manual screeningOrdered By: Dr. [place] on 09-15-2022 Thin prep Papanicolaou smear with manual screening 6 5-15 [facility] Urine blood detectionOrdered By: ED PROVIDER on 09-15-2022 RBC Ql (U) 250 /ul Negative [facility] RBC Ql (U) 10-25 SEEN /hpf 0-5 [facility] Urine clarityOrdered By: ED PROVIDER on 09-15-2022 Clarity (U) Clear Clear [facility] Urine color determinationOrd ered By: ED PROVIDER on 09-15-2022 Color (U) Yellow Yellow [facility] Urine glucose detectionOrder ed By: ED PROVIDER on 09-15-2022 Glucose Ql (U) 1000 mg/dl Normal [facility] Urine leukocyte esterase det ection by dipstickOrdered By: ED PROVIDER on 09-15-2022 Leukocyte esterase Test strip Ql (U) Negative Negative [facility] Urine pHOrdered By: ED PROVI FRANCISCA on 09-15-2022 pH (U) 5.0 [pH] 5.0 - 8.0 [facility] Urine sediment bacteria coun t by microscopy (number/high power field)Ordered By: ED PROVIDER on 09-15-2022 Bacteria LM.HPF (Urine sed) [#/Area] 0 /[HPF] None Seen [facility] Urine specific gravity measu rementOrdered By: ED PROVIDER on 09-15-2022 Specific gravity (U) [Rel density] 1.015 1.002-1.030 [facility] Urobilinogen Auto test strip Ql (U)Ordered By: ED PROVIDER on 09-15-2022 Urobilinogen Ql (U) Normal mg/dl Normal [facility] LABORATORYOrdered By: Lexi Brennan Marion on 09-04-2022 Glucose [Mass/Vol] 128 mg/dL Invalid Interpretation Code 82 - 115 mg/dL [facility] LABORATORYOrdered By: Clotilde Emery on 08-17-2022 Albumin BCP dye [Mass/Vol] 3.8 G/dL Invalid Interpretation Code 3.4 - 4.8 G/dL AO ADM SS Albumin/Globulin [Mass ratio] 1.2 {ratio} Invalid Interpretation Code 1.1 - 2.5 ratio AO ADM SS ALP [Catalytic activity/Vol] 73 U/L Invalid Interpretation Code 40 - 135 U/L AO ADM SS ALT With P-5'-P [Catalytic activity/Vol] 17 U/L Invalid Interpretation Code 16 - 63 U/L AO ADM SS AST With P-5'-P [Catalytic activity/Vol] 15 U/L Invalid Interpretation Code 10 - 40 U/L AO ADM SS Bilirubin [Mass/Vol] 0.4 mg/dL Invalid Interpretation Code 0.2 - 1.0 mg/dL AO ADM SS Calcium [Mass/Vol] 8.9 mg/dL Invalid Interpretation Code 8.4 - 10.2 mg/dL AO ADM SS Chloride [Moles/Vol] 103 mmol/L Invalid Interpretation Code 98 - 107 mmol/L AO ADM SS Cholesterol [Mass/Vol] 175 mg/dL Invalid Interpretation Code 0 - 200 mg/dL AO ADM SS Cholesterol in HDL [Mass/Vol] 63 mg/dL Invalid Interpretation Code 40 - 60 mg/dL AO ADM SS Cholesterol in LDL [Mass/Vol] 93 mg/dL Invalid Interpretation Code 0 - 130 mg/dL AO ADM SS CO2 [Moles/Vol] 28 mmol/L Invalid Interpretation Code 23 - 31 mmol/L AO ADM SS Creatinine [Mass/Vol] 1.01 mg/dL Invalid Interpretation Code 0.70 - 1.30 mg/dL AO ADM SS Electrolyte Balance 9.0 mEq/L Invalid Interpretation Code 4.0 - 15.0 mEq/L AO ADM SS Globulin 3.3 G/dL Invalid Interpretation Code AO ADM SS Glucose [Mass/Vol] 152 mg/dL Invalid Interpretation Code 83 - 110 mg/dL AO ADM SS Potassium [Moles/Vol] 4.4 mmol/L Invalid Interpretation Code 3.5 - 5.1 mmol/L AO ADM SS Prostate specific Ag [Mass/Vol] 0.27 ng/mL Invalid Interpretation Code 0.00 - 4.00 ng/mL AO ADM SS Protein [Mass/Vol] 7.1 G/dL Invalid Interpretation Code 6.4 - 8.2 G/dL AO ADM SS Sodium [Moles/Vol] 140 mmol/L Invalid Interpretation Code 136 - 145 mmol/L AO ADM SS Triglyceride [Mass/Vol] 94 mg/dL Invalid Interpretation Code 0 - 150 mg/dL AO ADM SS TSH Qn 1.86 m[IU]/L Invalid Interpretation Code 0.36 - 3.74 mcIU/mL AO ADM SS Urea nitrogen [Mass/Vol] 17 mg/dL Invalid Interpretation Code 7 - 18 mg/dL AO ADM SS Urea nitrogen/Creatinine [Mass ratio] 17 ratio Invalid Interpretation Code 7 - 27 ratio AO ADM SS LABORATORYOrdered By: SYSTEM SYSTEM on 08-17-2022 GFR 89 ml/min/1.73sqm Invalid Interpretation Code AO Chemistry S GFR Non- 73 ml/min/1.73sqm Invalid Interpretation Code AO Chemistry S LABORATORYOrdered By: Leeann Sosa on 08-17-2022 HCV Ab IA Ql Non-Reactive (08/17/22 7:59 AM) Invalid Interpretation Code Non-Reactiv e AH ADM SS HCV Ab IA Ql Nonreactive: Samples with a value < 0.80 are considered nonreactive (negative) for antibodies to HCV.A negative test result does not exclude the possibility of exposure to or infection with HCV. HCV antibodies may be undetectable in some stages of the infection and in some clinical conditions. Invalid Interpretation Code AH Chemistry S LABORATORYOrdered By: Leeann eD León on 05-18-2022 Glucose [Mass/Vol] 186 mg/dL Invalid Interpretation Code 82 - 115 mg/dL [facility] Vital Signs Date Time Vital Sign Value Performing Clinician Facility 12-25-2024 13:03-0500 Body height 182.88 cm [facility] 12-25-2024 13:03-0500 Body mass index (BMI) [Ratio] 25.2 kg/m2 [facility] 12-25-2024 13:03-0500 Body weight 84.48 kg [facility] 12-03-2024 10:26-0500 Diastolic Blood Pressure Non-Invasive 62 mm[Hg] MIKE AGUIRRE MD [address] [place] [address] 12-03-2024 10:26-0500 Heart rate 89 /min MIKE AGUIRRE MD [address] [place] [address] 12-03-2024 10:26-0500 Respiratory rate 18 /min MIKE AGUIRRE MD [address] [place] [address] 12-03-2024 10:26-0500 Systolic Blood Pressure Non-Invasive 135 mm[Hg] MIKE AGUIRRE MD [address] [place] [address] 12-03-2024 08:49-0500 Blood Pressure Location MIKE AGUIRRE MD [address] [place] [address] 12-03-2024 08:49-0500 Blood Pressure Method MIKE AGUIRRE MD [address] [place] [address] 12-03-2024 08:49-0500 Body temperature 97.7 [degF] MIKE AGUIRRE MD [address] 12-03-2024 08:49-0500 Body weight 86.4 kg MIKE AGUIRRE MD [address] [place] [address] 12-03-2024 08:49-0500 Diastolic Blood Pressure Non-Invasive 68 mm[Hg] MIKE AGUIRRE MD [facility] 12-03-2024 08:49-0500 Heart rate 90 /min MIKE AGUIRRE MD [address] [place] [address] 12-03-2024 08:49-0500 Respiratory rate 17 /min MIKE AGUIRRE MD [address] [place] [address] 12-03-2024 08:49-0500 Systolic Blood Pressure Non-Invasive 148 mm[Hg] MIKE AGUIRRE MD [address] [place] [address] 12-03-2024 07:50-0500 Diastolic Blood Pressure Non-Invasive 72 mm[Hg] GABY REICHFIELD DO [facility] 12-03-2024 07:50-0500 Heart rate 109 /min GABY REICHFIELD DO [facility] 12-03-2024 07:50-0500 Respiratory rate 16 /min GABY REICHFIELD DO [facility] 12-03-2024 07:50-0500 Systolic Blood Pressure Non-Invasive 122 mm[Hg] GABY REICHFIELD DO [facility] 12-03-2024 06:34-0500 Diastolic Blood Pressure Non-Invasive 72 mm[Hg] GABY REICHFIELD DO [facility] 12-03-2024 06:34-0500 Heart rate 105 /min GABY REICHFIELD DO [facility] 12-03-2024 06:34-0500 Respiratory rate 20 /min GABY REICHFIELD DO [facility] 12-03-2024 06:34-0500 Systolic Blood Pressure Non-Invasive 135 mm[Hg] GABY REICHFIELD DO [facility] 12-03-2024 05:52-0500 Body temperature 97.88 [degF] GABY REICHFIELD DO [facility] 12-03-2024 05:52-0500 Diastolic Blood Pressure Non-Invasive 84 mm[Hg] GABY REICHFIELD DO [facility] 12-03-2024 05:52-0500 Heart rate 110 /min GABY REICHFIELD DO [facility] 12-03-2024 05:52-0500 Respiratory rate 20 /min GABY REICHFIELD DO [facility] 12-03-2024 05:52-0500 Systolic Blood Pressure Non-Invasive 144 mm[Hg] GABY GRAY DO [facility] 11-14-2024 13:44-0500 Body temperature 98.71 [degF] [employer] [facility] Work Phone: [facility] 11-14-2024 13:44-0500 Body weight 86.3 kg [employer] [facility] Work Phone: [facility] 11-14-2024 13:44-0500 Diastolic blood pressure 72 mm[Hg] [employer] [facility] Work Phone: [facility] 11-14-2024 13:44-0500 Heart rate 138 /min [employer] [facility] Work Phone: [facility] 11-14-2024 13:44-0500 Respiratory rate 18 /min [employer] [facility] Work Phone: [facility] 11-14-2024 13:44-0500 SaO2% (BldA) [Mass fraction] 96 % [facility] Work Phone: [facility] 11-14-2024 13:44-0500 Systolic blood pressure 134 mm[Hg] [employer] [facility] Work Phone: [facility] 04-10-2024 12:08-0400 Body temperature 98.2 [degF] Kumar Olivares APRN.COMMERCIAL DECORATOR Work Phone: [facility] 04-10-2024 12:08-0400 Body weight 85.1 kg Kumar Olivares 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 Work Phone: [facility] 04-10-2024 12:08-0400 Diastolic blood pressure 62 mm[Hg] Kumar Olivares 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 Work Phone: [facility] 04-10-2024 12:08-0400 Heart rate 125 /min Kumar Olivares 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 Work Phone: [facility] 04-10-2024 12:08-0400 Respiratory rate 17 /min [facility] 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 Work Phone: [facility] 04-10-2024 12:08-0400 SaO2% (BldA) [Mass fraction] 96 % [facility] 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 Work Phone: [facility] 04-10-2024 12:08-0400 Systolic blood pressure 132 mm[Hg] [facility] 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 Work Phone: [facility] 12-20-2022 12:55-0500 Diastolic blood pressure 60 mm[Hg] [facility] 12-20-2022 12:55-0500 Heart rate 115 /min [facility] 12-20-2022 12:55-0500 Respiratory rate 20 /min [facility] 12-20-2022 12:55-0500 SaO2% (BldA) [Mass fraction] 97 % [facility] 12-20-2022 12:55-0500 Systolic blood pressure 130 mm[Hg] [facility] 12-20-2022 12:14-0500 Body temperature 97.8 [degF] [facility] 12-20-2022 10:38-0500 Body height 182.88 cm [facility] 12-20-2022 10:38-0500 Body mass index (BMI) [Ratio] 25 kg/m2 [facility] 12-20-2022 10:38-0500 Body weight 83.68 kg [facility] 12-16-2022 10:57-0500 Body temperature 98.6 [degF] Addis Athy PA-C Work Phone: [facility] 12-16-2022 10:57-0500 Body weight 82.56 kg Addis Athy PA-C Work Phone: [facility] 12-16-2022 10:57-0500 Diastolic blood pressure 64 mm[Hg] Addis Athy PA-C Work Phone: [facility] 12-16-2022 10:57-0500 Heart rate 116 /min Addis Athy PA-C Work Phone: [facility] 12-16-2022 10:57-0500 Respiratory rate 18 /min Addis [place] PA-C Work Phone: [facility] 12-16-2022 10:57-0500 SaO2% (BldA) [Mass fraction] 96 % Addis [place] PA-C Work Phone: [facility] 12-16-2022 10:57-0500 Systolic blood pressure 122 mm[Hg] Addis [place] PA-C Work Phone: [facility] 09-18-2022 17:26-0500 Body temperature 97.81 [degF] [facility] 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 Work Phone: [facility] 09-18-2022 17:26-0500 Body weight 86.18 kg Kumar [facility] 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 Work Phone: [facility] 09-18-2022 17:26-0500 Diastolic blood pressure 74 mm[Hg] Kumar [facility] 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 Work Phone: [facility] 09-18-2022 17:26-0500 Heart rate 105 /min [facility] 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 Work Phone: [facility] 09-18-2022 17:26-0500 Respiratory rate 18 /min [facility] 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 Work Phone: [facility] 09-18-2022 17:26-0500 SaO2% (BldA) [Mass fraction] 97 % Kumar [facility] 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 Work Phone: [facility] 09-18-2022 17:26-0500 Systolic blood pressure 122 mm[Hg] Kumar [facility] 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 Work Phone: [facility] 09-15-2022 22:27-0500 Respiratory rate 20 /min [facility] 09-15-2022 22:00-0500 Diastolic blood pressure 96 mm[Hg] [facility] 09-15-2022 22:00-0500 Heart rate 91 /min [facility] 09-15-2022 22:00-0500 SaO2% (BldA) [Mass fraction] 96 % [facility] 09-15-2022 22:00-0500 Systolic blood pressure 168 mm[Hg] [facility] 09-15-2022 20:12-0500 Body height 182.88 cm [facility] Work Phone: 09-15-2022 20:12-0500 Body mass index (BMI) [Ratio] 25.4 kg/m2 [facility] 09-15-2022 20:12-0500 Body temperature 98.4 [degF] [facility] 09-15-2022 20:12-0500 Body weight 85.27 kg [facility] 09-04-2022 11:44-0500 Diastolic Blood Pressure Non-Invasive [address] YANI DOUGHERTY MD [facility] 09-04-2022 11:44-0500 Heart rate 87 /min DR YANI DOUGHERTY MD [facility] 09-04-2022 11:44-0500 Respiratory rate 14 /min DR YANI DOUGHERTY MD [facility] 09-04-2022 11:44-0500 Systolic Blood Pressure Non-Invasive [address] YANI DOUGHERTY MD [facility] 09-04-2022 11:35-0500 Diastolic Blood Pressure Non-Invasive [address] YANI DOUGHERTY MD [facility] 09-04-2022 11:35-0500 Heart rate 84 /min DR YANI DOUGHERTY MD [facility] 09-04-2022 11:35-0500 Respiratory rate 14 /min DR YANI DOUGHERTY MD [facility] 09-04-2022 11:35-0500 Systolic Blood Pressure Non-Invasive [address] YANI DOUGHERTY MD [facility] 09-04-2022 11:30-0500 Diastolic Blood Pressure Non-Invasive [address] YANI DOUGHERTY MD [facility] 09-04-2022 11:30-0500 Heart rate 90 /min DR YANI DOUGHERTY MD [facility] 09-04-2022 11:30-0500 Respiratory rate 14 /min DR YANI DOUGHERTY MD [facility] 09-04-2022 11:30-0500 Systolic Blood Pressure Non-Invasive [address] YANI DOUGHERTY MD [facility] 09-04-2022 11:25-0500 Body temperature 97.7 [degF] DR YANI DOUGHERTY MD [facility] 09-04-2022 11:20-0500 Respiratory Rate - Anes 0 br/min DR YANI DOUGHERTY MD [facility] 09-04-2022 11:15-0500 Respiratory Rate - Anes 20 br/min DR YANI DOUGHERTY MD [facility] 09-04-2022 11:10-0500 Respiratory Rate - Anes 11 br/min DR YANI DOUGHERTY MD [facility] 09-04-2022 11:00-0500 Body weight 25.45 kg/m2 DR YANI DOUGHERTY MD [facility] 09-04-2022 10:39-0500 Body height [address] YANI DOUGHERTY MD [facility] 09-04-2022 10:39-0500 Body temperature 97.16 [degF] DR YANI DOUGHERTY MD [facility] 09-04-2022 10:39-0500 Body weight 84.[address] YANI DOUGHERTY MD [facility] 09-04-2022 10:39-0500 Heart rate 93 /min DR YANI DOUGHERTY MD [facility] 08-08-2022 09:56-0400 Body height 182.88 cm [facility] Work Phone: 08-08-2022 09:56-0400 Body mass index (BMI) [Ratio] 25.6 kg/m2 [facility] Work Phone: 08-08-2022 09:56-0400 Body temperature 96 [degF] [facility] Work Phone: 08-08-2022 09:56-0400 Body weight 85.7 kg [facility] Work Phone: 08-08-2022 09:56-0400 Diastolic blood pressure 81 mm[Hg] [facility] Work Phone: 08-08-2022 09:56-0400 Heart rate 117 /min [facility] Work Phone: 08-08-2022 09:56-0400 Respiratory rate 17 /min [facility] Work Phone: 08-08-2022 09:56-0400 SaO2% (BldA) [Mass fraction] 99 % [facility] Work Phone: 08-08-2022 09:56-0400 Systolic blood pressure 137 mm[Hg] [facility] Work Phone: 05-18-2022 08:54-0400 Diastolic Blood Pressure NBP [address] YANI DOUGHERTY MD [facility] 05-18-2022 08:54-0400 Heart rate 99 /min DR YANI DOUGHERTY MD [facility] 05-18-2022 08:54-0400 Respiratory rate 13 /min DR YANI DOUGHERTY MD [facility] 05-18-2022 08:54-0400 Systolic Blood Pressure NBP [address] YANI DOUGHERTY MD [facility] 05-18-2022 08:48-0400 Diastolic Blood Pressure NBP [address] YANI DOUGHERTY MD [facility] 05-18-2022 08:48-0400 Heart rate 96 /min DR YANI DOUGHERTY MD [facility] 05-18-2022 08:48-0400 Respiratory rate 14 /min DR YANI DOUGHERTY MD [facility] 05-18-2022 08:48-0400 Systolic Blood Pressure NBP [address] YANI DOUGHERTY MD [facility] 05-18-2022 08:41-0400 Diastolic Blood Pressure NBP [address] YANI DOUGHERTY MD [facility] 05-18-2022 08:41-0400 Heart rate 102 /min DR YANI DOUGHERTY MD [facility] 05-18-2022 08:41-0400 Respiratory rate 17 /min DR YANI DOUGHERTY MD [facility] 05-18-2022 08:41-0400 Systolic Blood Pressure NBP [address] YANI DOUGHERTY MD [facility] 05-18-2022 08:31-0400 Body temperature 97.16 [degF] DR YANI DOUGHERTY MD [facility] 05-18-2022 07:15-0400 Body height 182.[address] YANI DOUGHERTY MD [facility] 05-18-2022 07:15-0400 Body weight 84.[address] YANI DOUGHERTY MD [facility] 05-18-2022 07:13-0400 Body height 182.[address] YANI DOUGHERTY MD [facility] 05-18-2022 07:13-0400 Body temperature 97.7 [degF] DR YANI DOUGHERTY MD [facility] 05-18-2022 07:13-0400 Body weight 84.[address] YANI DOUGHERTY MD [facility] 05-18-2022 07:13-0400 Heart rate 105 /min DR YANI DOUGHERTY MD [facility] 08-20-2021 15:36-0400 Diastolic blood pressure 67 mm[Hg] JR CLARK DO [facility] 08-20-2021 15:36-0400 Heart rate 105 /min JR CLARK DO [facility] 08-20-2021 15:36-0400 Respiratory rate 16 /min JR CLARK DO [facility] 08-20-2021 15:36-0400 Systolic blood pressure 122 mm[Hg] JR CLARK DO [facility] 08-20-2021 13:29-0400 Body height 182.9 cm JR CLARK DO [facility] 08-20-2021 13:29-0400 Body temperature 98.24 [degF] JR CLARK DO [facility] 08-20-2021 13:29-0400 Diastolic blood pressure 80 mm[Hg] JR CLARK DO [facility] 08-20-2021 13:29-0400 Heart rate 122 /min JR CLARK DO [facility] 08-20-2021 13:29-0400 Respiratory rate 16 /min JR CLARK DO [facility] 08-20-2021 13:29-0400 Systolic blood pressure 142 mm[Hg] JR CLARK DO [facility] Encounters Encounter Date Encounter Type Care Provider Facility Start: 04-02-2025 [facility] Facility:[facility] Start: 03-29-2025 ambulatory Domenic Khan NP Facil ity:[facility] Start: 02-19-2025 [facility] Start: 02-19-2025 End: 02-19-2025 ambulatory Tonio Friend Facility:[facility] Start: 02-12-2025 End: 03-09-2025 ambulatory PATIENT UNSURE PHYSICIAN Facility:[facility] Start: 02-12-2025 End: 03-09-2025 Physical therapy management YOANA LION PA-C [facility] Start: 02-12-2025 Encounter for other preprocedural examination Mckenna Penn [facility] Start: 02-06-2025 End: 02-06-2025 ambulatory [facility] Work Phone: Start: 02-06-2025 End: 02-06-2025 Patient encounter procedure Mckenna PEREIRA -Pulmonary Services/Neurology Work Phone: Start: 02-06-2025 End: 02-06-2025 ambulatory Yoana Lion Facility:[facility] Start: 01-19-2025 End: 01-19-2025 ambulatory [facility] Work Phone: Start: 01-19-2025 End: 01-19-2025 Patient encounter procedure Luz Bacon TOOL DESIGN ENGINEER-C -Radiology, [facility] Work Phone: Start: 01-19-2025 End: 01-19-2025 ambulatory Luz Bacon Facility:[facility] Start: 01-11-2025 End: 01-11-2025 [facility] Work Phone: Start: 01-11-2025 End: 01-11-2025 Patient encounter procedure Luz Bacon TOOL DESIGN ENGINEER-C -Nuclear Medicine, [facility] Work Phone: Start: 01-11-2025 End: 01-11-2025 ambulatory Luz Bacon Facility:[facility] Start: 01-02-2025 End: 01-02-2025 [facility] Work Phone: Start: 01-02-2025 End: 01-02-[address] Rey Wallace MD -Cat Scan, [facility] Work Phone: Start: 01-01-2025 End: 01-02-2025 ambulatory [facility] Work Phone: Start: 01-01-2025 End: 01-01-2025 Patient encounter procedure Shakira Dee -Laboratory Work Phone: Start: 01-01-2025 End: 01-01-2025 ambulatory Shakira Dee Facility:[facility] Start: 12-25-2024 End: 12-25-[address] Marcos Archer MD -[facility] Work Phone: Start: 12-25-2024 End: 12-25-2024 ambulatory Marcos Archer Facility:[facility] Start: 12-18-2024 End: 12-18-2024 Patient encounter procedure Luz DAWKINS -[facility] Work Phone: Start: 12-18-2024 End: 12-18-2024 ambulatory Luzher Bacon Facility:[facility] Start: 12-03-2024 End: 12-03-2024 Emergency department patient visit MIKE AGUIRRE MD [facility] Start: 12-03-2024 End: 12-03-2024 Emergency department patient visit GABY ISAAC [facility] Start: 11-15-2024 End: 11-15-2024 Telephone encounter James PEREIRA Work Phone: [facility] Comment on above: Results Start: 11-14-2024 End: 11-14-2024 ambulatory Facility:[facility] Start: 11-14-2024 End: 11-14-2024 Patient encounter procedure [facility] Work Phone: [facility] Comment on above: Viral URI (Primary D x); Acute cough; Chest congestion; Chest tightness; Headaches Start: 09-26-2024 End: 09-26-2024 Patient encounter procedure Larisa [place] -[facility] Work Phone: Start: 09-26-2024 End: 09-26-2024 ambulatory [facility] Facility:[facility] Start: 05-12-2024 End: 05-12-2024 ambulatory PHY WO ID REFERRING Facility: Start: 05-12-2024 End: 05-12-2024 Patient encounter procedure PHY WO ID REFERRING [facility] Start: 04-18-2024 End: 04-18-2024 ambulatory [facility] Facility:[facility] Start: 04-10-2024 End: 04-11-2024 ambulatory Rey Wallace Facility:[facility] Start: 04-10-2024 End: 04-10-2024 Patient encounter procedure Kumar Olivares 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 Work Phone: [facility] Comment on above: Burning with urinati on (Primary Dx) Start: 12-23-2023 End: 12-23-[address] REY WALLACE MD Facility:[facility] Start: 12-23-2023 End: 12-23-[address] REY WALLACE MD [facility] Start: 06-15-2023 End: 06-15-2023 Transcribe Orders Ramu Gay 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 Work Phone: [facility] Comment on above: Dyspnea, unspecified type Start: 03-29-2023 ambulatory Domenic Gilda Khan [facility] ty:[facility] Start: 12-20-2022 End: 12-20-2022 Emergency department patient visit [facility]gency Department Start: 12-17-2022 Telephone encounter Cornelia Elias sy 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 Work Phone: [facility] Comment on above: Results Start: 12-16-2022 End: 12-16-2022 Subsequent hospital visit by physician Xr [facility] Work Phone: Radiology Comment on above: Bronchitis [J40] Start: 12-16-2022 End: 12-16-2022 Patient encounter procedure Addis Coelho PA-C Work Phone: [facility] Comment on above: Bronchitis (Primary Dx); Acute upper respiratory infection, unspecified Start: 11-17-2022 End: 11-21-2022 Outreach Lab ISIAH LOBO DO [facility] Start: 09-21-2022 End: 09-21-2022 ambulatory [facility] Work Phone: Start: 09-21-2022 End: 09-21-2022 Patient encounter procedure [facility]-Radiology, [facility] Start: 09-18-2022 End: 09-18-2022 Patient encounter procedure Kumar Elise ALMAGUERCOMMERCIAL DECORATOR Work Phone: [facility] Comment on above: Acute bilateral low back pain without sciatica (Primary Dx); Glucose found in urine on examination Start: 09-15-2022 End: 09-15-2022 Emergency department patient visit [facility]gency [facility] Start: 09-04-2022 End: 09-04-[address] YANI DOUGHERTY MD [facility] Start: 08-28-2022 End: 08-28-2022 Patient encounter procedure ISIAH LOBO DO [facility] Start: 08-17-2022 End: 08-17-2022 Patient encounter procedure ISIAH LOBO DO [facility] Start: 08-08-2022 End: 08-08-2022 Emergency department patient visit [facility] Start: 05-18-2022 End: 05-18-[address] YANI DOUGHERTY MD [facility] Start: 08-20-2021 End: 08-20-2021 Emergency department patient visit JR G AMBER DO [facility] Procedures Date Procedure Procedure Detail Performing Clinician Start: 01-19-2025 [facility] Start: 01-11-2025 Radionuclide gastric emptying study [facility] Start: 01-02-2025 CT of abdomen and pelvis without contrast [facility] Start: 12-25-2024 X-ray of lumbosacral spine [facility] Start: 09-26-2024 MRI of lumbar spine [facility] Start: 08-22-2023 Radiologic exam chest 2 views Guinevere Gay 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 Work Phone: Start: 12-20-2022 Plain chest X-ray Start: 12-16-2022 Radiologic exam chest 2 views Addis barone PA-C Work Phone: Start: 09-21-2022 Diagnostic radiography of abdomen Start: 09-18-2022 Gluc bld gluc mntr dev cleared fda spec home use [facility] Provider Start: 09-18-2022 Urnls dip stick/tablet rgnt auto w/o microscopy Chente King 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 Work Phone: Start: 09-15-2022 CT of abdomen and pelvis without contrast Start: 09-04-[address] YANI MATA MD Start: 11-05-2017 Esophagogastroduodenoscopy JR Cervantes DO [facility] JR CLARK DO Comment on above: right middle finger, reattached and pinn ed Cystoscopy JR CLARK DO Oral surgery (qualifier value) JR CLARK DO Rotator cuff includi ng muscles and tendons (body structure) JR CLARK DO Comment on above: right Plan of Treatment Date Care Activity Detail Author Start: 06-10-2032 Urine microalbumin profile DTaP,Tdap,Td Vaccine (2 - Td or Tdap) [facility] Start: 06-01-2028 Lipid panel Cholesterol [facility] Start: 2026 RSV Vaccine (1 - 1-d ose 75+ series) RSV Vaccine (1 - 1-dose 75+ series) [facility] Start: 10-25-2024 Advance Directive Discussion Advance Directive Discussion [facility] Start: 06-25-2024 Covid-19 Vaccine ( season) Covid-19 Vaccine ( season) [facility] Start: 06-25-2024 Influenza vaccination [facility] Start: 10-25-2023 Advance Directive Discussion Advance Directive Discussion [facility] Start: 10-25-2023 Behavioral Health Screening Behavioral Health Screening [facility] Start: 07-25-2023 Influenza vaccination Influenza Vacc ine (#1) [facility] Start: 06-25-2023 Covid-19 Vaccine ( season) Covid-19 Vaccine ( season) [facility] Start: 12-16-2022 End: 12-30-2022 Influenza virus A and B RNA and SARS-CoV-2 (COVID-19) N gene panel - Respiratory specimen by ISABEL with probe detection [facility] Work Phone: Comment on above: Expected: 12/16/2022 , Expires: 12/30/2022 Start: 10-25-2022 ADVANCE DIRECTIVE DISCUSSION ADVANCE DIRECTIVE DISCUSSION [facility] Start: 10-25-2022 DEPRESSION ASSESSMENT DEPRESSION ASS ESSMENT [facility] Start: 09-15-2022 [facility] Start: 07-04-2022 Pneumococcal vaccination Pneumococcal Vaccine(s) (65+ yrs) (2 - PCV) [facility] Start: 10-25-2021 ADVANCE DIRECTIVE DISCUSSION ADVANCE DIRECTIVE DISCUSSION [facility] Start: 10-25-2021 DEPRESSION ASSESSMENT DEPRESSION ASS ESSMENT [facility] Start: 2016 Pneumococcal vaccination Pneumococcal Vaccine(s) (65+ yrs) (1 - PCV) [facility] Start: 2011 RSV Vaccine (1 - 1-d ose 60+ series) RSV Vaccine (1 - 1-dose 60+ series) [facility] Start: 2001 Shingles (RZV) Vacci ne (1 of 2) Shingles (RZV) Vaccine (1 of 2) [facility] Start: 2001 SHINGRIX VACCINE (1 of 2) SHINGRIX VACCINE (1 of 2) [facility] Start: 1996 COLOGUARD (FIT-DNA) COLOGUARD (FIT-D NA) [facility] Start: 1996 Colonoscopy COLONOSCOPY [facility] Start: 1996 COLORECTAL CANCER SCREENING COLORECTAL CANCER SCREENING [facility] Start: [address] COLONOGRAPHY [facility] Start: 1996 DIABETES SCREEN DIABETES SCREEN [facility] Start: 1996 Diabetes Screening Diabetes Screenin g [facility] Start: 1996 FECAL OCCULT BLOOD FECAL OCCULT BLOO D [facility] Start: 1996 Screening for malign ant neoplasm of colon [facility] Start: 1996 SIGMOIDOSCOPY SIGMOIDOSCOPY [facility] Start: 1986 [facility] Start: 1986 LIPID SCREEN LIPID SCREEN [facility] Start: 1970 Tetanus vaccination Tetanus (T d or Tdap) Booster [facility] Start: 1970 Urine microalbumin profile DTAP,TDAP,TD (1 - Tdap) [facility] Start: 1969 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 Disease Visit Annual PCP Team Chronic Disease Visit [facility] Start: 1969 Anxiety Screening Anxiety Screening [facility] Start: 1969 BP Controlled (<130/80) BP Controlle d (<130/80) [facility] Start: 1969 Creatinine measurement Serum Creatin ine [facility] Start: 1969 Depression Screening Depression Scre ening [facility] Start: 1969 Hepatitis B surface antibody level LDL Cholesterol [facility] Start: 1969 HEPATITIS C SCREENING HEPATITIS C SC STEPAN [facility] Start: 1969 Hepatitis C screening [facility] Start: 1969 Tetanus + diphtheria + acellular pertussis vaccine (product) Tdap Booster [facility] Start: 1961 Diabetic foot examination Diabetic Foot Exam [facility] Start: 1961 Glaucoma screening Dilated Retinal E xam [facility] Start: 1961 Hepatitis B screening Urine Albumin:Creatinine Ratio [facility] Start: 1957 PNEUMOCOCCAL: 65+ (1 - PCV) PNEUMOCOCCAL: 65+ (1 - PCV) [facility] Start: 1956 Hemoglobin A1c measurement HbA1C [facility] Start: 03-28-1952 COVID-19 VACCINE (#1) COVID-19 VACCI NE (#1) [facility] Start: 1951 ABDOMINAL AORTIC ANEURYSM SCREENING ABDOMINAL AORTIC ANEURYSM SCREENING [facility] Start: 1951 Abdominal aortic aneurysm screening Abdominal Aortic Aneurysm Screening [facility] Start: 1951 Screening for malign ant neoplasm of colon Colonoscopy [facility] COVID & INFLUENZA A/ B & RSV PCR, ROUTINE COVID & INFLUENZA A/B & RSV PCR, ROUTINE Microbiology Routine Acute cough Chest congestion Chest tightness Headaches 11/14/2024 4:12 PM EST [facility] Work Phone: Glucose [Mass/volume ] in Serum or Plasma GLUCOSE, BLOOD (POC) Lab Routine Glucose found in urine on examination Ordered: 09/18/2022 [facility] Work Phone: Comment on above: Ordered: 09/18/2022 Patient Education [facility] Work Phone: Patient referral [facility] Work Phone: Radionuclide gastric emptying study [facility] UA DIP, URINE (POC) UA DIP, URIN E (POC) Lab Routine Burning with urination Ordered: 04/10/2024 [facility] Work Phone: Comment on above: Ordered: 04/10/2024 [facility] Immunization Date Immunization Notes Care Provider Galdino welch 08-14-2022 influenza, high dose seasonal, preservative-free ISIAH LOBO DO [facility] 08-14-2022 influenza virus vacc ine, unspecified formulation [facility] 1 [facility] 11-04-2021 influenza, high dose seasonal, preservative-free; Translations: [Fluad Quadrivalent PF ] DR YANI DOUGHERTY MD [facility] 07-04-2021 pneumococcal polysaccharide vaccine, 23 valent; Translations: [Pneumovax 23] JR CLARK DO [facility] 09-05-2020 influenza virus vacc ine, unspecified formulation JR CLARK DO [facility] 09-05-2020 influenza, injectabl e, quadrivalent, preservative free [facility] 09-05-2020 influenza, seasonal, [facility] Payers Date Payer Category Payer Unknown [id number] 17 2023 Unknown [id number] 2022 Self-pay [id number] 2016 Medicare [id number] 2016 Private Health Insurance [id number] 2016 Medicare [id number] 2016 Private Health Insurance [id number] 1950 Unknown [id number] 2.16.8 [id number] 1950 Unknown [id number] 2.16.8 [id number] 1950 Unknown [id number] 2.16.8 40.1.494512.3.579.2.627 1950 Unknown [id number] 2.16.8 40.1.711817.3.579.2.627 1950 Unknown [id number] 2.16.8 40.1.167878.3.579.2.627 Unknown [id number] 2.16.8 40.1.674241.3.579.2.630 Unknown [id number] 2.16.8 40.1.798460.3.579.2.462 Unknown [id number] 2.16.8 40.1.873049.3.579.2.462 Unknown [id number] 2.16.8 40.1.536862.3.579.2.462 Unknown [id number] 2.16.8 40.1.357705.3.579.2.462 Unknown [id number] 2.16.8 40.1.091976.3.579.2.462 Unknown [id number] 2.16.8 40.1.978132.3.579.2.462 Unknown [id number] 2.16.8 40.1.137994.3.579.2.462 Unknown [id number] 2.16.8 40.1.134862.3.579.2.462 Unknown [id number] 2.16.8 40.1.185598.3.579.2.462 Unknown [id number] 2.16.8 40.1.336533.3.579.2.462 Unknown [id number] 2.16.8 40.1.785972.3.579.2.462 Unknown [id number] 2.16.8 40.1.504118.3.579.2.462 Unknown [id number] 2.16.8 40.1.194213.3.579.2.462 Unknown [id number] 2.16.8 40.1.968856.3.579.2.462 Unknown [id number] 2.16.8 40.1.205388.3.579.2.462 Unknown [id number] 2.16.8 [id number] Social History Date Type Detail Facility Start: 05-29-2020 Heavy tobacco smoker (finding) [facility] Start: 1950 Sex Assigned At Male [facility] Start: 08-08-2022 End: 12-20-2022 Tobacco smoking status NHIS Unknown if ever smoked [facility] Start: 08-08-2022 Rare [facility] Start: 09-04-2020 None [facility] Start: 09-04-2020 Spouse/ Significant Other [facility] Start: 09-04-2020 Cigarettes [facility] Start: 09-18-2022 End: 12-18-2024 Tobacco smoking status NHIS Smokes tobacco daily [facility] Start: 09-18-2022 Tobacco use and exposure Smokeless tobacco non-user [facility] Start: 1950 Sex Assigned At Not on file [facility] Start: 09-08-2022 End: 09-18-2022 Exposure to SARS-CoV-2 (event) Not sure [facility] Start: 10-04-2020 End: 04-10-2024 Gender identity Not on file [facility] Start: 10-04-2020 End: 04-10-2024 History of Social function [facility] National Score (1-10 0), lower number is lower risk Not on file [facility] Sexual Orientation [facility] Start: 09-19-2019 End: 02-10-2025 Sex Male (finding) [facility] Functional Status Date Assessment Result Facility 12-03-2024 Functional Status Room check per formed, 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 Control 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 bedside [facility] 12-03-2024 Functional Status Independent [facility] 12-03-2024 Functional Status Standard Safet y ID band on, Allergy Band on, Call device within reach, Bed in low position, Wheels locked, Upper/Half-Length side-rails up, Phone within reach, personal items within reach, Bedside Cart Locked, Visitor at bedside [facility] 09-04-2022 Functional Status Maintained [facility] 05-18-2022 Functional Status Awake [facility] 05-18-2022 Functional Status Maintained [facility] Mental Status Date Assessment Result Facility 12-03-2024 Mental Status Orientation Oriented x 4 [facility] 12-03-2024 Mental Status Oriented x 4 [facility] 12-03-2024 Mental Status [facility] 09-04-2022 Mental Status Oriented x 4 [facility] 08-08-2022 Cognitive function Level Of Cons ciousness Awake;Alert;Appropriate;Follow s Commands [facility] Work Phone: 05-18-2022 [facility] 05-18-2022 Mental Status [facility] Shirlene Patel Clinical Notes 08-20-2021 to 02-19-2025 Note Date & Type Note Facility 02-19-2025 Note [facility] Medical Records Department [address] [place] [address] History Physical Exam 02/19/25 0645 MR#: [id number] Acct: [id number] Name: AGAPITO MESSER Rep #: [id number] : 1950 74 From: Tonio Friend DO PCP: [facility] Status:REG [facility] Location: [place] [address] HPI - General General Date of Admission: 02/19/25 Date of Service: 02/19/25 Chief Complaint: dysphagia HPI Narrative AGAPITO MESSER, is a 74 M who presents to the office today for establishment with [facility] for difficulty swallowing with a history having 2 prior EGDs with dilation of esophageal strictures, one in August 2020 and second in February [address] Dougherty and was told he had erosive esophagitis. He had a recent ED on visit 12/03/24 for complaints of food getting stuck, a piece of steak lodged in lower chest/upper abdomen, it felt like I was choking, but I could breathe. No treatments were required during ED visit as the food bolus advanced on its own, they did increase his pantoprazole to 40mg twice daily. He reports much less reflux and difficulty swallowing since increasing the pantoprazole and recommending a soft diet. He is a 1ppd smoker, denies use of alcohol, and has exposure to questionable drinking water at [employer], asbestos and [place]. He reports some difficulty chewing due to poor dentition and missing teeth, frequent throat clearing with phlegm, and feels like food comes up with a belch, and constipation. He states that he feels that whatever he eats doesn't leave his stomach like it should. He denies early satiety or reduced appetite. He states his stools have varying calibers, ranging from bullet-sized to lund, and strains with each. PCP has him taking Metamucil several times a day and he feels like that's finally starting to work. He denies heartburn, nausea, emesis, abdominal bloating and pain, excessive belching and flatulence, diarrhea, hematochezia, and melena. He states that his last colonoscopy was in 2022, no abnormalities found and was told to repeat in 10 years. [facility] Medical History Wears partial dentures Wears glasses Anxiety Depression History of steroid therapy Ambulates with cane History of renal disease Fatty liver Migraine headache Dietary restriction Gastric reflux Smoker History of echocardiogram History of stress test Traumatic amputation of ear Finger amputation, traumatic Enlarged prostate Back pain Arthritis Kidney stones Home Medications ???Medication ???Instructions ???Recorded ???Last Taken ???Type alfuzosin 10 mg tablet,extended 10 mg PO DAILY 08/05/17 02/18/25 H istory release 24 hr gabapentin 300 mg capsule 300 mg PO BIDCM 08/05/17 02/18/25 History glimepiride 4 mg tablet 4 mg PO DAILY 08/05/17 02/18/25 Hi story meloxicam 15 mg tablet 15 mg PO DAILY 08/05/17 02/15/25 H istory fish oil-dha-epa 1,200 mg-144 1 cap PO DAILY 09/04/20 02/15/25 H istory mg-216 mg capsule morphine 15 mg tablet,extended 15 mg PO TID 09/04/20 02/18/25 His tory release ondansetron 4 mg disintegrating 4 mg PO Q8H PRN PRN Nausea #10 tab s 09/15/22 Unknown Rx tablet aspirin 81 mg tablet,delayed 81 mg PO QDAY 12/18/24 02/15/25 Hi story release (Adult Aspirin Regimen) cholecalciferol (vitamin D3) 50 50 mcg PO QDAY 12/18/24 02/18/25 H istory mcg (2,000 unit) capsule empagliflozin 25 mg tablet 25 mg PO QDAY 12/18/24 02/15/25 Hi story hydroxyzine pamoate 25 mg capsule 25 mg PO QDAY PRN anxiety 5 Unknown History pantoprazole 40 mg tablet,delayed 40 mg PO BID #60 tabs 12/18/24 Rx release docusate sodium 100 mg capsule 100 mg PO BID 02/14/25 02/18/25 Hi story (Colace) psyllium husk 3.4 gram/5.4 gram 1 tbsp PO DAILY 02/14/25 02/18/25 History oral powder (Metamucil) acetaminophen 500 mg/15 mL oral 500 mg PO Q4H PRN pain 02/19/25 History liquid Allergy/AdvReac Type Severity Reaction Status Date / Time hydrocodone (From Vicodin) Allergy Rash Verified 02/19/25 05:51 celecoxib (From Celebrex) AdvReac goofy Verified 02/19/25 05:51 Surgical History History of rotator cuff surgery H/O lithotripsy Social History Smoking Status: Current every day smoker tobacco type: cigarettes alcohol intake: never substance use type: does not use ROS Constitutional Constitutional: Denies fatigue, fever(s), poor appetite, weight gain or weight loss Gastrointestinal Gastrointestinal: Denies belching, bloating, change in bowel habits, change in stool character, chewing difficulty, coffee ground emesis, constipation, cramping, diarrhea, dyspepsia, dysphagia, hitesh (more content not included)... [facility] 01-19-2025 Procedure note [facility] 01-11-2025 Nuclear medicine Diagnostic study note [facility] Imaging Services [address] [place] [address] [id number] Gastric Emptying Study MR#: [id number] Acct: [id number] Name: AGAPITO MESSER Rep #: [id number] : 1950 M 74 From: Leon Clancy MD PCP: [facility] Status: REG CLI Study:Gastric Emptying Study Date of Exam: 01/11/25 Exam# [id number] Ordering Dr: Hunter Bacon TOOL DESIGN ENGINEER-C PROCEDURE: GASTRIC EMPTYING STUDY REASON FOR EXAM: PROLONGED FULLNESS TECHNIQUE: The patient ingested a mixture of 1 mCi of technetium sulfur colloid and oatmeal. A gastric emptying study was then obtained. RADIOPHARMACEUTICAL: 1 mCi of technetium labeled sulfur colloid. COMPARISON: None. FINDINGS: 72% of the radiopharmaceutical exited the stomach at 60 minutes. This is a normal study. NM/Gastric Emptying Study IMPRESSION: Normal gastric emptying examination. Reading Location: [place] [address] CC: MARIZA Bacon; [facility] ~ Chicken Picker: Signed [facility] 01-02-2025 Radiology Diagnostic study note [facility] Imaging Services [address] [place], [place] [id number] Abdomen/Pelvis without Cont MR#: [id number] Acct: [id number] Name: AGAPITO MESSER Rep #: [id number] : 1950 M 74 From: Leon Clancy MD PCP: [facility] Status: REG CLI Study:Abdomen/Pelvis without Cont Date of Exa m: 01/02/25 Exam# [id number] Ordering Dr: Maude Wallace MD PROCEDURE: ABDOMEN/PELVIS WITHOUT CONT REASON FOR EXAM: 1 year history of dysuria. History of kidney stones. TECHNIQUE: Abdomen and pelvis CT without intravenous contrast. COMPARISON: Comparison is made with prior study dated September 15, 2022. FINDINGS: Coronary artery calcification. Lung bases: Stable mild degree of increased linear markings at the lung bases suggestive of scarring. Liver: Unremarkable. Gallbladder: The gallbladder is contracted. Spleen: Unremarkable. Pancreas: Unremarkable. Adrenals: Unremarkable. Kidneys: Stable 2 cm cyst in the anterior upper pole of the right kidney. Stable 2 mm calculus in the upper pole calyx of the right kidney. Stable small left parapelvic cyst. No evidence of obstructive uropathy. Bladder: Unremarkable. Calcification of the vas deferens. Small umbilical hernia containing fat. No evidence of hydronephrosis. Bowel: Colonic diverticulosis without diverticulitis. Appendix: Normal. Lymph nodes: No suspicious lymph node enlargement. Vasculature: Mild diffuse atherosclerotic calcifications are noted. Peritoneum / Retroperitoneum: No ascites. No free air. Bones: Degenerative changes of the spine. CT/Abdomen/Pelvis without Cont IMPRESSION: Nonobstructive right intrarenal calculus. Stable right renal cyst. One or more dose reduction techniques were used (e.g., Automated exposure control, adjustment of the mA and/or kV according to patient size, use of iterative reconstruction technique). Reading Location: [place] [address] CC: Dr. Rey Wallace MD; [facility] ~ Chicken Picker: Signed [facility] 12-18-2024 Evaluation note Diagnosis Onset Date Resolution Delayed gastric emptying acute December 18, 2024 10:33am Dysphagia acute December 18, 2024 10:33am Esophageal stricture acute ua2024 10:33am Reflux esophagitis acute 2024 10:33am Spondylolisthesis, lumbar region acute December 25, 2024 12:32pm Spondylosis of lumbar region without myelopathy or radiculopathy acute December 25, 2024 12:32pm [facility] Work Phone: 1(111) 799-386702-09-2025 Hospital Discharge instructions Patient Education 12/03/2024 10:13:46 Esophageal Foreign Body, Resolved Esophageal Blockage, Resolved The esophagus is the passage that carries food from the mouth to the stomach. You had a blockage inthe esophagus. This can happen after swallowing a large piece of food, taking a large pill, or swallowing foreign objects. If this is a recurring problem, it can be a sign of disease in the esophagus, such as inflammation (swelling and irritation) or scarring. If you did not have a special procedure (endoscopy) today to treat your condition, further testing will be needed to evaluate this problem. The blockage has cleared. You should be able to swallow normally again. Home care For the next 24 hours you may drink liquids and eat soft foods. You may have been given medicine today to prevent pain and help you relax. If so, you may feel drowsy for the next 4 [address] or operate dangerous equipment until you feel alert again. If your esophagus was blocked by food, be sure to cut solid food into small pieces before putting it into your mouth. Chew all foods well before swallowing. If your esophagus was blocked by an bpdq-sdb-nzhsdjy pill (such as a vitamin), avoid this size pillin the future. If it was blocked by a prescription medicine, ask your healthcare provider for another form of medicine. Follow-up care Follow up with your healthcare provider, or as advised. If you continue to have problems, contact your doctor or this facility for advice. If this is a recurring problem, talk with your healthcare provider about it. He or she may suggest having an endoscopy. This is a look in the esophagus with a small camera and light in a narrow, flexible tube. When to seek medical advice Call your healthcare provider right away if any of these occur: Unable to swallow Significant pain on swallowing Fever of 100.4 F (38 C) or higher, or as directed by your healthcare provider Call 911 Call 911 if any of the following occur: Chest pain or shortness of breath Vomiting blood (red or black) Blood in your stool (dark red or black color) 1970-2032 [employer]. [address] [place] [address]. All rights reserved. This information is not intended as a substitute for professional medical care. Always follow yourhealthcare professional's instructions. Follow Up Care 12/03/2024 08:45:07 With:CHENTE CASILLAS MD Address: [address] [place] [address] [facility] [place] [address]- When:2-4 days [facility] 02-09-2025 Gastroenterology Consult note Date of Service December 03, 2024 Reason for Consultation Concern for food impaction Referring Physician Dr. Aguirre History of Present Illness 74-year-old male with a history of anxiety, BPH, diabetes, fatty liver, hypertension, hyperlipidemia, TIA who was transferred from [place] ED where he presented with concern for for impaction. Patient was eating a small bite of steak at 430 this morning and began to have dysphagia and trouble swallowing tolerating secretions. he tried some Coke but this did not help. In the [place] ED, he received glucagon and Pepcid. He was then transferred here for GI evaluation. Currently the note patient notes feeling slightly improved. He is tolerating secretions. He is alsotolerating water at bedside. He denies any abdominal pain or shortness of breath. No recent weight loss or nausea or vomiting. He does have a history of peptic stricture for which he underwent EGD last in 2018. His outpatient hematology supervisor is Dr. Garcia but patient states that he ran out of his PPI pantoprazole in September and despite multiple calls to the office, had not heard back. He was off of it for about 2 weeks and then 3 weeks ago, started taking daily Nexium which he feels has been helping. He currently denies any heartburn or acid reflux symptoms. No family history of GI disease. He smokes 1 pack/day. Review of Systems A complete and comprehensive 12 system review of systems was otherwise negative Physical Exam Vitals and Measurements T: 36.5 C (Oral) HR: 89 (Monitored) RR: 18 BP: 135/62 SpO2: 98% WT: 86.4 kg Weight Dosing Weight: 86.4 kg (12/03/24) General No acute distress HEENT PERRLA EOMI anicteric sclera Pulm clear to auscultation bilaterally CV regular rate and rhythm no murmurs rubs or gallops Abdomen soft nontender nondistended positive bowel sounds Extremities warm and well-perfused no clubbing cyanosis or edema Lab Results No 36 Hour Lab Data Assessment/Plan 74-year-old male with a history of anxiety, BPH, diabetes, fatty liver, hypertension, hyperlipidemia, TIA who was transferred from [place] ED where he presented with concern for for impaction. Patient was eating a small bite of steak at 430 this morning and began to have dysphagia and trouble swallowing tolerating secretion. he tried some Coke but this did not help. . In the [place] ED, he received glucagon and Pepcid. He was then transferred here for GI evaluation. Patient is now symptomatically improved. He is tolerating secretions and oral liquids. He does have a history of peptic stricture for which he underwent EGD last in 2018. -Okay to discharge patient with close outpatient GI follow-up. Patient prefers to reestablish with a new hematology supervisor. Will follow-up for outpatient EGD with Dr. Casillas in 1 to 2 weeks; soft diet discussed. -Discharge on pantoprazole 40 mg twice daily Plan discussed with patient and at bedside as well as ED physician. Problem List/Past Medical History Ongoing Anxiety Arthritis BMI 25.0-25.9,adult BPH (benign prostatic hyperplasia) Chronic low back pain Diabetes Dysphagia Fatigue Fatty liver GERD - Gastro-esophageal reflux disease Heavy smoker Hypertension associated with type 2 diabetes mellitus Hypertriglyceridemia Kidney stones Left otitis media Medicare annual wellness visit, subsequent Need for hepatitis C screening test Need for influenza vaccination Need for vaccination against Streptococcus pneumoniae Recurrent major depression Risk and functional assessment Screening for colon cancer Screening for prostate cancer Shortness of breath Statin intolerance TIA (transient ischemic attack) Tobacco use Trouble in sleeping Type 2 diabetes mellitus with hyperlipidemia Uncontrolled type 2 diabetes mellitus with hyperglycemia Viral bronchitis Vitamin D deficiency Historical Diabetes Procedure/Surgical History Esophagogastroduodenoscopy: 09/04/22 Esophagogastroduodenoscopy: 11/05/17 Rotator cuff - right Oral surgery Amputation Medications Inpatient pantoprazole, 40 mg= 1 tab(s), Oral, Once Home albuterol MDI (90 mcg/inh) CFC free inhalation aerosol, 2 puff(s), Inhalation, q4h, 2 refills alfuzosin 10 mg oral tablet, extended release, 10 mg= 1 tab(s), Oral, qDay amitriptyline 10 mg oral tablet, 10 mg= 1 tab(s), Oral, qHS, 1 refills aspirin 81 mg oral tablet (chewable), 81 mg= 1 tab(s), Oral, qHS Colace, 100 mg, Oral, BID empagliflozin 10 mg oral tablet, 10 mg= 1 tab(s), Oral, qAM Fish Oil 1000 mg oral capsule, 1000 mg= 1 cap(s), Oral, qDay glimepiride 4 mg oral tablet, 4 mg= 1 tab(s), Oral, qDay losartan 25 mg oral tablet, 25 mg= 1 tab(s), Oral, qDay, 1 refills Mobic 15 mg oral tablet, 15 mg= 1 tab(s), Oral, qDayM morphine 15 mg/8 to 12 hr oral tablet, extended release Neurontin 300 mg oral capsule, 300 mg= 1 cap(s), Oral, BID pantoprazole 40 mg oral enteric coated tablet, 40 mg= 1 tab(s), Oral, qDay pantoprazole 40 mg oral enteric coated tablet, 40 mg= 1 tab(s), Oral, BID Vitamin D3, 2000 unit(s)= 1 tab(s), Oral, qDay Allergies CeleBREX Abdominal pain Chantix Hannibal Hives Vicodin Wellbutrin Short of breath on exertion, Fatigue, Nauseated amoxicillin Headache, Nausea, SOB - Shortness of breath Social History Smoking Status - 01/04/2018 Current every day smoker Alcohol - Denies Alcohol Use, 09/12/2017 Use: Never., 05/09/2019 Home/Environment Living situation: Home/Independent., 05/09/2019 Nutrition/Health Caffeine intake amount: 2 daily., 05/09/2019 Substance Abuse - Denies Substance Abuse, 09/12/2017 Use: Never., 05/09/2019 Tobacco Nicotine Use: 10 or more cigarettes (1/2 pack or more)/day in last 30 days, cut back from 2ppd to 1ppd. Exposure to Tobacco Smoke Lives with someone who smokes., 05/29/2020 Family History Alcohol abuse: Father and Son. Alzheimer's disease: Mother and Grandparent. Asthma: Mother, Sister, Daughter and Son. Depression: Mother and Sister. Heart disease: Mother and Son. Mental illness: Mother. Osteoarthritis: Mother. Substance abuse: Son. Health Status Family Member(s) Immunizations pneumococcal 23-valent vaccine(Pneumovax: 0.5 mL (07/04/21) Digitally Signed by ANNETTE DIAZ MD on 12/03/2024 11:36 AM [id number] Discharge summary Discharge Instructions Thank you for allowing [facility] to assist you with your healthcare needs. The following is importantdischarge information regarding your hospital visit. What to Do Next Instructions from Your Care Team No qualifying data available. Post Acute Orders No qualifying data available. You Need to Schedule the Following Appointments Follow Up with CHENTE CASILLAS MD When:Within 2-4 days Where:[address] [facility] [place] [address]- Allergies CeleBREX Abdominal pain Chantix Hannibal Hives Vicodin Wellbutrin Short of breath on exertion, Fatigue, Nauseated amoxicillin Headache, Nausea, SOB - Shortness of breath Medications Please ask your primary doctor or pharmacist before taking any other medication not listed, including over the counter drugs, herbal medications, vitamins and or supplements as they may interact withyour home medications. What How Much When Why Instructions Last Dose Changed pantoprazole (pantoprazole 40 mg oral entericcoated tablet) 1 tab(s) by mouth Two (2) times a day Printed Prescription Changed pantoprazole (pantoprazole 40 mg oral enteric coated tablet) 1 tab(s) by mouth Once a day Unchanged albuterol (albuterol MDI (90 mcg/ inh) CFC free inhalation aerosol) 2 puff(s) by inhalation Every 4 hours Viral bronchitis Heavy smoker Duration: 30 Days Unchanged alfuzosin (alfuzosin 10 mg oral tablet, extended release) 1 tab(s) by mouth Once a day Unchanged amitriptyline (amitriptyline 10 mg oral tablet) 1 tab(s) by mouth Daily at bedtime Trouble in sleeping Recurrent major depression Aware of age. Medication works well for patient Unchanged aspirin (aspirin 81 mg oral tablet (chewable)) 1 tab(s) by mouth Daily at bedtime Unchanged cholecalciferol (Vitamin D3) 2,000 unit(s) by mouth Once a day Unchanged docusate (Colace) 100 Milligram by mouth Two (2) times a day Unchanged empagliflozin (empagliflozin 10 mg oral tablet) 1 tab(s) by mouth Once a day (in the morning) Unchanged gabapentin (Neurontin 300 mg oral capsule) 1 cap by mouth Two (2) times a day Unchanged glimepiride (glimepiride 4 mg oral tablet) 1 tab(s) by mouth Once a day Unchanged losartan (losartan 25 mg oral tablet) 1 tab(s) by mouth Once a day Hypertension associated with type 2 diabetes mellitus Unchanged meloxicam (Mobic 15 mg oral tablet) 1 tab(s) by mouth Once a day with a meal Unchanged morphine (morphine 15 mg/ 8 to 12 hr oral tablet, extended release) take 1 tablet by mouth three times a day if needed for pain Unchanged omega-3 polyunsaturated fatty acids (Fish Oil 1000 mg oral capsule) 1 cap by mouth Once a day Please take this list to your next doctor s visit. Bring all medications you take, including over the counter medications, herbals and other supplements with you to your doctor s visit. Patients and families are reminded to discard old lists and to update any records with all medication providers or retail pharmacies. Education Materials Esophageal Blockage, Resolved The esophagus is the passage that carries food from the mouth to the stomach. You had a blockage inthe esophagus. This can happen after swallowing a large piece of food, taking a large pill, or swallowing foreign objects. If this is a recurring problem, it can be a sign of disease in the esophagus, such as inflammation (swelling and irritation) or scarring. If you did not have a special procedure (endoscopy) today to treat your condition, further testing will be needed to evaluate this problem. The blockage has cleared. You should be able to swallow normally again. Home care For the next 24 hours you may drink liquids and eat soft foods. You may have been given medicine today to prevent pain and help you relax. If so, you may feel drowsy for the next 4 [address] or operate dangerous equipment until you feel alert again. If your esophagus was blocked by food, be sure to cut solid food into small pieces before putting it into your mouth. Chew all foods well before swallowing. If your esophagus was blocked by an itkh-xgk-ucmwjea pill (such as a vitamin), avoid this size pillin the future. If it was blocked by a prescription medicine, ask your healthcare provider for another form of medicine. Follow-up care Follow up with your healthcare provider, or as advised. If you continue to have problems, contact your doctor or this facility for advice. If this is a recurring problem, talk with your healthcare provider about it. He or she may suggest having an endoscopy. This is a look in the esophagus with a small camera and light in a narrow, flexible tube. When to seek medical advice Call your healthcare provider right away if any of these occur: Unable to swallow Significant pain on swallowing Fever of 100.4 F (38 C) or higher, or as directed by your healthcare provider Call 911 Call 911 if any of the following occur: Chest pain or shortness of breath Vomiting blood (red or black) Blood in your stool (dark red or black color) [id number] [employer] [place] [address], [place] [id number]. All rights reserved. This information is not intended as a substitute for professional medical care. Always follow yourhealthcare professional's instructions. Additional Information VACCINATE! IT SAVES LIVES! Members of the community who have not yet received the COVID-19 vaccine and would like to receive it can visit one of [facility] vaccine clinics. There are many vaccine clinic locations within the [facility]. For locations and available times, please visit www.[email or web address].gov/. It is important to note that some COVID mobile vaccine clinics are held outdoors and may be canceled in rainy or stormy conditions. To learn more about pediatric vaccinations (ages 5-11), we invite you to visit the [facility] webpage. [email or web address]://[email or web address]/[email or web address] [email or web address] learn more about the COVID-19 vaccine, we invite you to visit the CDC website for a list of frequently asked questions. https://www.cdc.gov/coronavirus/2019-ncov/vaccines/faq.html [facility] Patient Portal Access Instructions: Stay connected with your healthcare team and access your personal medical information anytime with the [facility] Patient Portal. If you would like a full copy of your medical records please contact the [facility] Medical Records Department Wednesday through Wednesday between 8a.m. and 4:30p.m. Please follow the directions below to access the portal: 1.Access the email account you provided upon registration to the hospital.2.Look for an invitation email from [facility].3.Open the email and access the invitation link: Accept Invitation to [facility]4.Fill in the required morris to create your account. Sign into [email or web address] with your username and password that you created in the above steps to stay up to date. You can then view a summary of results, a summary of your visits, and the ability to download your summaries to your computer or send the information securely to a physician. Remember that your healthcare information is confidential, so carefully consider who you will allow to register on the [facility] Patient Portal for access to your information. You can also access the [facility] Patient Portal on the MobileRQ tayler. Simply click on Health Records under HealthData and then click on the [employer] logo. HOW TO SAFELY DISPOSE OF PRESCRIPTION MEDICATIONS Please use one of the following methods to safely dispose of your unused medications. 1.Use a drug disposal kit: the drug disposal pouch allows you to safely discard your old and unuseddrugs. Ask your nurse to give you one when you are discharged.2.Visit a local take-back location: Many local pharmacies and police departments have programs that collect old and unwanted prescriptiondrugs. Call your local pharmacy or go to http://bit.Genomas/3N3Hq1s to find one close to you.3.Make use of household items: Use cat litter or old coffee grounds to dispose medications if other options arenot available. Mix your drugs with these household products, seal them in an airtight container andthrow it into the garbage. Call [facility]: [phone] to be sure your drugs can be disposed of in this way. Some medicines may require a different approach.4.Never flush your medications down the toilet. IF YOU HAVE BEEN PRESCRIBED AN OPIOIDS FOR PAIN If you have been prescribed an opioid (such as hydrocodone, oxycodone or morphine), it is critical to understand the possible side effects and risks of opioid pain medications. Even when taken as directed, opioids can have several side effects including: Tolerance, meaning you might need to take more of a medication for the same pain relief. Nausea, vomiting and/or constipation. Sleepiness, dizziness, dry mouth, confusion, depression or itching. Physical dependence, meaning you have withdrawal symptoms when a medication is stopped ? this can develop within a few days. KNOW YOUR RESPONSIBILITIES It is important to know exactly how much and how often to take the opioid pain medications you are prescribed. Never take opioids in higher amounts or more often than prescribed. Do not combine opioids with alcohol or other drugs that cause drowsiness, such as benzodiazepines, also known as benzos,including diazepam and alprazolam, muscle relaxants or sleep aids. Never sell or share prescriptionopioids. This is illegal. Store opioids in a secure place and out of reach of others (including children, family, friends and visitors). The last page(s) of this document has been signed and retained as a CHART COPY Signatures Patient Education Materials Esophageal Foreign Body, Resolved Medication Leaflets My discharge plan and instructions have been reviewed and explained to me and ITRUPTI HAROLD E understand my current condition and have read and understand these discharge instructions. I have received a written copy of the plan/instructions. If I have questions, I am aware that I should contactmy doctor. 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 The following is importantdischarge information regarding your hospital visit. What to Do Next Instructions from Your Care Team No qualifying data available. Post Acute Orders No qualifying data available. You Need to Schedule the Following Appointments Follow Up with CHENTE CASILLAS MD When:Within 2-4 days [facility] [facility] [place] [address]- Allergies CeleBREX Abdominal pain Chantix Hannibal Hives Vicodin Wellbutrin Short of breath on exertion, Fatigue, Nauseated amoxicillin Headache, Nausea, SOB - Shortness of breath Medications Please ask your primary doctor or pharmacist before taking any other medication not listed, including over the counter drugs, herbal medications, vitamins and or supplements as they may interact withyour home medications. What How Much When Why Instructions Last Dose Changed pantoprazole (pantoprazole 40 mg oral entericcoated tablet) 1 tab(s) by mouth Once a day Changed pantoprazole (pantoprazole 40 mg oral enteric coated tablet) 1 tab(s) by mouth Two (2) times a day Printed Prescription Unchanged albuterol (albuterol MDI (90 mcg/ inh) CFC free inhalation aerosol) 2 puff(s) by inhalation Every 4 hours Viral bronchitis Heavy smoker Duration: 30 Days Unchanged alfuzosin (alfuzosin 10 mg oral tablet, extended release) 1 tab(s) by mouth Once a day Unchanged amitriptyline (amitriptyline 10 mg oral tablet) 1 tab(s) by mouth Daily at bedtime Trouble in sleeping Recurrent major depression Aware of age. Medication works well for patient Unchanged aspirin (aspirin 81 mg oral tablet (chewable)) 1 tab(s) by mouth Daily at bedtime Unchanged cholecalciferol (Vitamin D3) 2,000 unit(s) by mouth Once a day Unchanged docusate (Colace) 100 Milligram by mouth Two (2) times a day Unchanged empagliflozin (empagliflozin 10 mg oral tablet) 1 tab(s) by mouth Once a day (in the morning) Unchanged gabapentin (Neurontin 300 mg oral capsule) 1 cap by mouth Two (2) times a day Unchanged glimepiride (glimepiride 4 mg oral tablet) 1 tab(s) by mouth Once a day Unchanged losartan (losartan 25 mg oral tablet) 1 tab(s) by mouth Once a day Hypertension associated with type 2 diabetes mellitus Unchanged meloxicam (Mobic 15 mg oral tablet) 1 tab(s) by mouth Once a day with a meal Unchanged morphine (morphine 15 mg/ 8 to 12 hr oral tablet, extended release) take 1 tablet by mouth three times a day if needed for pain Unchanged omega-3 polyunsaturated fatty acids (Fish Oil 1000 mg oral capsule) 1 cap by mouth Once a day Please take this list to your next doctor s visit. Bring all medications you take, including over the counter medications, herbals and other supplements with you to your doctor s visit. Patients and families are reminded to discard old lists and to update any records with all medication providers or retail pharmacies. Education Materials Esophageal Blockage, Resolved The esophagus is the passage that carries food from the mouth to the stomach. You had a blockage inthe esophagus. This can happen after swallowing a large piece of food, taking a large pill, or swallowing foreign objects. If this is a recurring problem, it can be a sign of disease in the esophagus, such as inflammation (swelling and irritation) or scarring. If you did not have a special procedure (endoscopy) today to treat your condition, further testing will be needed to evaluate this problem. The blockage has cleared. You should be able to swallow normally again. Home care For the next 24 hours you may drink liquids and eat soft foods. You may have been given medicine today to prevent pain and help you relax. If so, you may feel drowsy for the next 4 [address] or operate dangerous equipment until you feel alert again. If your esophagus was blocked by food, be sure to cut solid food into small pieces before putting it into your mouth. Chew all foods well before swallowing. If your esophagus was blocked by an xxku-qlm-pigflge pill (such as a vitamin), avoid this size pillin the future. If it was blocked by a prescription medicine, ask your healthcare provider for another form of medicine. Follow-up care Follow up with your healthcare provider, or as advised. If you continue to have problems, contact your doctor or this facility for advice. If this is a recurring problem, talk with your healthcare provider about it. He or she may suggest having an endoscopy. This is a look in the esophagus with a small camera and light in a narrow, flexible tube. When to seek medical advice Call your healthcare provider right away if any of these occur: Unable to swallow Significant pain on swallowing Fever of 100.4 F (38 C) or higher, or as directed by your healthcare provider Call 911 Call 911 if any of the following occur: Chest pain or shortness of breath Vomiting blood (red or black) Blood in your stool (dark red or black color) 4723-2105 [employer]. [address] [place] [address], [place] [address]. All rights reserved. This information is not intended as a substitute for professional medical care. Always follow yourhealthcare professional's instructions. Additional Information VACCINATE! IT SAVES LIVES! Members of the community who have not yet received the COVID-19 vaccine and would like to receive it can visit one of [facility] vaccine clinics. There are many vaccine clinic locations within the [facility]. For locations and available times, please visit www.[email or web address].gov/. It is important to note that some COVID mobile vaccine clinics are held outdoors and may be canceled in rainy or stormy conditions. To learn more about pediatric vaccinations (ages 5-11), we invite you to visit the [facility] webpage. https://www.[email or web address].org/pages/[email or web address]-[email or web address]-Erkiu-Jct stions.htmlTo learn more about the COVID-19 vaccine, we invite you to visit the CDC website for a list of frequently asked questions. https://www.cdc.gov/coronavirus/2019-ncov/vaccines/faq.html [facility] Patient Portal Access Instructions: Stay connected with your healthcare team and access your personal medical information anytime with the [facility] Patient Portal. If you would like a full copy of your medical records please contact the [facility] Medical Records Department Wednesday through Wednesday between 8a.m. and 4:30p.m. Please follow the directions below to access the portal: 1.Access the email account you provided upon registration to the [facility].2.Look for an invitation email from [facility].3.Open the email and access the invitation link: Accept Invitation to [facility]4.Fill in the required morris to create your account. Sign into [email or web address] with your username and password that you created in the above steps to stay up to date. You can then view a summary of results, a summary of your visits, and the ability to download your summaries to your computer or send the information securely to a physician. Remember that your healthcare information is confidential, so carefully consider who you will allow to register on the [facility] Patient Portal for access to your information. You can also access the [facility] Patient Portal on the Mobile Broad[employer] Network. Simply click on Health Records under SafetyCulture and then click on the [facility] logo. HOW TO SAFELY DISPOSE OF PRESCRIPTION MEDICATIONS Please use one of the following methods to safely dispose of your unused medications. 1.Use a drug disposal kit: the drug disposal pouch allows you to safely discard your old and unuseddrugs. Ask your nurse to give you one when you are discharged.2.Visit a local take-back location: Many local pharmacies and police departments have programs that collect old and unwanted prescriptiondrugs. Call your local pharmacy or go to http://inVentiv Health.Genomas/4A6Zr6i to find one close to you.3.Make use of household items: Use cat litter or old coffee grounds to dispose medications if other options arenot available. Mix your drugs with these household products, seal them in an airtight container andthrow it into the garbage. Call [facility]: [phone] to be sure your drugs can be disposed of in this way. Some medicines may require a different approach.4.Never flush your medications down the toilet. IF YOU HAVE BEEN PRESCRIBED AN OPIOIDS FOR PAIN If you have been prescribed an opioid (such as hydrocodone, oxycodone or morphine), it is critical to understand the possible side effects and risks of opioid pain medications. Even when taken as directed, opioids can have several side effects including: Tolerance, meaning you might need to take more of a medication for the same pain relief. Nausea, vomiting and/or constipation. Sleepiness, dizziness, dry mouth, confusion, depression or itching. Physical dependence, meaning you have withdrawal symptoms when a medication is stopped ? this can develop within a few days. KNOW YOUR RESPONSIBILITIES It is important to know exactly how much and how often to take the opioid pain medications you are prescribed. Never take opioids in higher amounts or more often than prescribed. Do not combine opioids with alcohol or other drugs that cause drowsiness, such as benzodiazepines, also known as benzos,including diazepam and alprazolam, muscle relaxants or sleep aids. Never sell or share prescriptionopioids. This is illegal. Store opioids in a secure place and out of reach of others (including children, family, friends and visitors). The last page(s) of this document has been signed and retained as a CHART COPY Signatures Patient Education Materials Esophageal Foreign Body, Resolved Medication Leaflets My discharge plan and instructions have been reviewed and explained to me and I,AGAPITO MESSER understand my current condition and have read and understand these discharge instructions. I have received a written copy of the plan/instructions. If I have questions, I am aware that I should contactmy doctor. Patient/Business Analyst Signature: Date/Time: Relationship to Patient: Witness Name/Signature: Date/Time: [facility]ene [id number] Emergency department Discharge summary Discharge Instructions Thank you for allowing [facility] to assist you with your healthcare needs. The following is importantdischarge information regarding your hospital visit. What to Do Next Instructions from Your Care Team No qualifying data available. Post Acute Orders No qualifying data available. You Need to Schedule the Following Appointments Follow Up with CHENTE CASILLAS MD When:Within 2-4 days Where:[address] [facility] [place] [address]- Allergies CeleBREX Abdominal pain Chantix Hannibal Hives Vicodin Wellbutrin Short of breath on exertion, Fatigue, Nauseated amoxicillin Headache, Nausea, SOB - Shortness of breath Medications Please ask your primary doctor or pharmacist before taking any other medication not listed, including over the counter drugs, herbal medications, vitamins and or supplements as they may interact withyour home medications. What How Much When Why Instructions Last Dose Unchanged albuterol (albuterol MDI (90 mcg/ inh) CFC free inhalation aerosol) 2 puff(s) by inhalation Every 4 hours Viral bronchitis Heavy smoker Duration: 30 Days Unchanged alfuzosin (alfuzosin 10 mg oral tablet, extended release) 1 tab(s) by mouth Once a day Unchanged amitriptyline (amitriptyline 10 mg oral tablet) 1 tab(s) by mouth Daily at bedtime Trouble in sleeping Recurrent major depression Aware of age. Medication works well for patient Unchanged aspirin (aspirin 81 mg oral tablet (chewable)) 1 tab(s) by mouth Daily at bedtime Unchanged cholecalciferol (Vitamin D3) 2,000 unit(s) by mouth Once a day Unchanged docusate (Colace) 100 Milligram by mouth Two (2) times a day Unchanged empagliflozin (empagliflozin 10 mg oral tablet) 1 tab(s) by mouth Once a day (in the morning) Unchanged gabapentin (Neurontin 300 mg oral capsule) 1 cap by mouth Two (2) times a day Unchanged glimepiride (glimepiride 4 mg oral tablet) 1 tab(s) by mouth Once a day Unchanged losartan (losartan 25 mg oral tablet) 1 tab(s) by mouth Once a day Hypertension associated with type 2 diabetes mellitus Unchanged meloxicam (Mobic 15 mg oral tablet) 1 tab(s) by mouth Once a day with a meal Unchanged morphine (morphine 15 mg/ 8 to 12 hr oral tablet, extended release) take 1 tablet by mouth three times a day if needed for pain Unchanged omega-3 polyunsaturated fatty acids (Fish Oil 1000 mg oral capsule) 1 cap by mouth Once a day Unchanged pantoprazole (pantoprazole 40 mg oral enteric coated tablet) 1 tab(s) by mouth Once a day Please take this list to your next doctor s visit. Bring all medications you take, including over the counter medications, herbals and other supplements with you to your doctor s visit. Patients and families are reminded to discard old lists and to update any records with all medication providers or retail pharmacies. Education Materials Esophageal Blockage, Resolved The esophagus is the passage that carries food from the mouth to the stomach. You had a blockage inthe esophagus. This can happen after swallowing a large piece of food, taking a large pill, or swallowing foreign objects. If this is a recurring problem, it can be a sign of disease in the esophagus, such as inflammation (swelling and irritation) or scarring. If you did not have a special procedure (endoscopy) today to treat your condition, further testing will be needed to evaluate this problem. The blockage has cleared. You should be able to swallow normally again. Home care For the next 24 hours you may drink liquids and eat soft foods. You may have been given medicine today to prevent pain and help you relax. If so, you may feel drowsy for the next 4 [address] or operate dangerous equipment until you feel alert again. If your esophagus was blocked by food, be sure to cut solid food into small pieces before putting it into your mouth. Chew all foods well before swallowing. If your esophagus was blocked by an nspr-mae-xmaiiti pill (such as a vitamin), avoid this size pillin the future. If it was blocked by a prescription medicine, ask your healthcare provider for another form of medicine. Follow-up care Follow up with your healthcare provider, or as advised. If you continue to have problems, contact your doctor or this facility for advice. If this is a recurring problem, talk with your healthcare provider about it. He or she may suggest having an endoscopy. This is a look in the esophagus with a small camera and light in a narrow, flexible tube. When to seek medical advice Call your healthcare provider right away if any of these occur: Unable to swallow Significant pain on swallowing Fever of 100.4 F (38 C) or higher, or as directed by your healthcare provider Call 911 Call 911 if any of the following occur: Chest pain or shortness of breath Vomiting blood (red or black) Blood in your stool (dark red or black color) [id number] [employer]. [address] [place] [address], [place] [address]. All rights reserved. This information is not intended as a substitute for professional medical care. Always follow yourhealthcare professional's instructions. Additional Information VACCINATE! IT SAVES LIVES! Members of the community who have not yet received the COVID-19 vaccine and would like to receive it can visit one of [facility] vaccine clinics. There are many vaccine clinic locations within the [facility]. For locations and available times, please visit www.[email or web address].gov/. It is important to note that some COVID mobile vaccine clinics are held outdoors and may be canceled in rainy or stormy conditions. To learn more about pediatric vaccinations (ages 5-11), we invite you to visit the [facility] webpage. https://[email or web address]/[email or web address] [email or web address] learn more about the COVID-19 vaccine, we invite you to visit the CDC website for a list of frequently asked questions. https://www.cdc.gov/coronavirus/2019-ncov/vaccines/faq.html [facility] Patient Portal Access Instructions: Stay connected with your healthcare team and access your personal medical information anytime with the [facility] Patient Portal. If you would like a full copy of your medical records please contact the [facility] Medical Records Department Wednesday through Wednesday between 8a.m. and 4:30p.m. Please follow the directions below to access the portal: 1.Access the email account you provided upon registration to the hospital.2.Look for an invitation email from [facility].3.Open the email and access the invitation link: Accept Invitation to [facility]4.Fill in the required morris to create your account. Sign into [email or web address] with your username and password that you created in the above steps to stay up to date. You can then view a summary of results, a summary of your visits, and the ability to download your summaries to your computer or send the information securely to a physician. Remember that your healthcare information is confidential, so carefully consider who you will allow to register on the [facility] Patient Portal for access to your information. You can also access the [facility] Patient Portal on the Mobile[employer] tayler. Simply click on Health Records under [employer]Culture and then click on the [facility] logo. HOW TO SAFELY DISPOSE OF PRESCRIPTION MEDICATIONS Please use one of the following methods to safely dispose of your unused medications. 1.Use a drug disposal kit: the drug disposal pouch allows you to safely discard your old and unuseddrugs. Ask your nurse to give you one when you are discharged.2.Visit a local take-back location: Many local pharmacies and police departments have programs that collect old and unwanted prescriptiondrugs. Call your local pharmacy or go to http://in[facility]entiv Health.Genomas/2V2Av1e to find one close to you.3.Make use of household items: Use cat litter or old coffee grounds to dispose medications if other options arenot available. Mix your drugs with these household products, seal them in an airtight container andthrow it into the garbage. Call [facility]: [phone] to be sure your drugs can be disposed of in this way. Some medicines may require a different approach.4.Never flush your medications down the toilet. IF YOU HAVE BEEN PRESCRIBED AN OPIOIDS FOR PAIN If you have been prescribed an opioid (such as hydrocodone, oxycodone or morphine), it is critical to understand the possible side effects and risks of opioid pain medications. Even when taken as directed, opioids can have several side effects including: Tolerance, meaning you might need to take more of a medication for the same pain relief. Nausea, vomiting and/or constipation. Sleepiness, dizziness, dry mouth, confusion, depression or itching. Physical dependence, meaning you have withdrawal symptoms when a medication is stopped ? this can develop within a few days. KNOW YOUR RESPONSIBILITIES It is important to know exactly how much and how often to take the opioid pain medications you are prescribed. Never take opioids in higher amounts or more often than prescribed. Do not combine opioids with alcohol or other drugs that cause drowsiness, such as benzodiazepines, also known as benzos,including diazepam and alprazolam, muscle relaxants or sleep aids. Never sell or share prescriptionopioids. This is illegal. Store opioids in a secure place and out of reach of others (including children, family, friends and visitors). The last page(s) of this document has been signed and retained as a CHART COPY Signatures Patient Education Materials Esophageal Foreign Body, Resolved Medication Leaflets My discharge plan and instructions have been reviewed and explained to me and ITRUPTI HAROLD E understand my current condition and have read and understand these discharge instructions. I have received a written copy of the plan/instructions. If I have questions, I am aware that I should contactmy doctor. Patient/Business Analyst Signature: Date/Time: Relationship to Patient: Witness Name/Signature: [facility]Time[id number] Note* Telephone Encounter - Lluvia Roger MA - 11/15/2024 8:47 AM EST Patient given results and verbalized understanding of instructions given. Lluvia Roger MA [facility]01-22-2025 Miscellaneous Notes* Telephone Encounter - Lluvia Roger MA - 11/15/2024 8:47 AM EST Patient given results and verbalized understanding of instructions given. Lluvia Roger MA * Telephone Encounter - James Elizalde PA - 11/15/2024 7:12 AM EST Negative COVID flu RSV documented in this encounterProm[facility] Telephone encounter Note * Telephone Encounter - James Elizalde PA - 11/15/2024 7:12 AM EST Negative COVID flu RSV [facility] Work Phone: [phone]) 999-881401-21-2025 NoteHNO ID: [id number] Author: TOMAS ONEAL PA-C Service: ? Author Type: Physician Ladle Liner Helper Type: Progress Notes Filed: 11/14/2024 14:03 Note Text: Subjective Agapito Messer is a 74 year old male with a past medical history of hypertension, GERD, CKD, diabetes, depression, anxiety, and TIA who [facility] of cough, nasal congestion, and headache x 2 days. No fevers. No known exposure to COVID-19, influenza, RSV, or strep pharyngitis. Review of Systems Constitutional: Negative for chills, diaphoresis and fever. HENT: Positive for congestion. Eyes: Negative for discharge and redness. Respiratory: Positive for cough. Musculoskeletal: Negative for back pain and neck pain. Skin: Negative for rash and wound. Neurological: Positive for headaches. Negative for weakness. All other systems reviewed and are negative. Objective BP 134/72 Pulse (!) 138 Temp 37.1 ?C (98.7 ?F) Resp 18 Wt 86.3 kg (190 lb 4.1 oz) SpO2 96% Physical Exam Vitals reviewed. Constitutional: General: He is not in acute distress. Appearance: Normal appearance. He is normal weight. He is not ill-appearing or toxic-appearing. Comments: The patient appears to be non-toxic, in no acute distress, and resting comfortably on the table. HENT: Head: Normocephalic and atraumatic. Eyes: Extraocular Movements: Extraocular movements intact. Cardiovascular: Rate and Rhythm: Normal rate and regular rhythm. Heart sounds: Normal heart sounds. No murmur heard. No friction rub. No gallop. Pulmonary: Effort: Pulmonary effort is normal. No respiratory distress. Breath sounds: Normal breath sounds. Decreased air movement present. No wheezing. Musculoskeletal: General: Normal range of motion. Cervical back: Normal range of motion. Skin: General: Skin is warm and dry. Findings: No erythema or rash. Neurological: General: No focal deficit present. Mental Status: He is alert and oriented to person, place, and time. Mental status is at baseline. Psychiatric: Mood and Affect: Mood normal. Behavior: Behavior normal. Thought Content: Thought content normal. Assessment and Plan Lungs are clear to auscultation bilaterally however there is decreased air movement. Suspect patient's symptoms are due to viral infection. Patient tested for COVID-19, influenza, and RSV. Patient counseled regarding suspected diagnosis and given prescriptions for Tessalon Perles and Mucinex. Advised to follow-up with primary care as needed for any new or worsening symptoms. ASSESSMENT/PLAN: 1. Viral URI - ICD9: 465.9, ICD10: J06.9 (primary diagnosis) - Discussed viral etiology and rationale for treatment. - Symptomatic treatment with prn analgesia - Supportive care with fluids and rest 2. Acute cough - ICD9: 786.2, ICD10: R05.1 - COVID AND INFLUENZA A/B AND RSV PCR, ROUTINE - BENZONATATE 100 MG CAPSULE 3. Chest congestion - ICD9: 786.9, ICD10: R09.89 - COVID AND INFLUENZA A/B AND RSV PCR, ROUTINE - GUAIFENESIN ER 600 MG TABLET, EXTENDED RELEASE 12 HR 4. Chest tightness - ICD9: 786.59, ICD10: R07.89 - COVID AND INFLUENZA A/B AND RSV PCR, ROUTINE 5. Headaches - ICD9: 784.0, ICD10: R51.9 - COVID AND INFLUENZA A/B AND RSV PCR, ROUTINE Medical Decision Making: Problems: Low: Acute, uncomplicated illness or injury Risk: Minimal: Minimal risk from testing/treatment Moderate: Drug management Medical Decision Making Level: 3 - Low I spent a total of 20 minutes on the date of the service which included preparing to see the patient, [id number] patient care, completing clinical documentation, performing a medically appropriate examination, counseling and educating the patient/family/caregiver, and ordering medications, tests, or procedures. [facility]01-21-2025 History of Present illness Narrative* Tomas Oneal PA-C - 11/14/2024 1:56 PM EST Subjective Agapito Messer is a 74 year old male with a past medical history of hypertension, GERD, CKD, diabetes, depression, anxiety, and TIA who [facility] of cough, nasal congestion, and headache x 2 days. No fevers. No known exposure to COVID-19, influenza, RSV, or strep pharyngitis. Review of Systems Constitutional: Negative for chills, diaphoresis and fever. HENT: Positive for congestion. Eyes: Negative for discharge and redness. Respiratory: Positive for cough. Musculoskeletal: Negative for back pain and neck pain. Skin: Negative for rash and wound. Neurological: Positive for headaches. Negative for weakness. All other systems reviewed and are negative. Objective BP 134/72 Pulse (!) 138 Temp 37.1 C (98.7 F) Resp 18 Wt 86.3 kg (190 lb 4.1 oz) SpO2 96% Physical Exam Vitals reviewed. Constitutional: General: He is not in acute distress. Appearance: Normal appearance. He is normal weight. He is not ill-appearing or toxic-appearing. Comments: The patient appears to be non-toxic, in no acute distress, and resting comfortably on thetable. HENT: Head: Normocephalic and atraumatic. Eyes: Extraocular Movements: Extraocular movements intact. Cardiovascular: Rate and Rhythm: Normal rate and regular rhythm. Heart sounds: Normal heart sounds. No murmur heard. No friction rub. No gallop. Pulmonary: Effort: Pulmonary effort is normal. No respiratory distress. Breath sounds: Normal breath sounds. Decreased air movement present. No wheezing. Musculoskeletal: General: Normal range of motion. Cervical back: Normal range of motion. Skin: General: Skin is warm and dry. Findings: No erythema or rash. Neurological: General: No focal deficit present. Mental Status: He is alert and oriented to person, place, and time. Mental status is at baseline. Psychiatric: Mood and Affect: Mood normal. Behavior: Behavior normal. Thought Content: Thought content normal. Assessment and Plan Lungs are clear to auscultation bilaterally however there is decreased air movement. Suspect patient's symptoms are due to viral infection. Patient tested for COVID-19, influenza, and RSV. Patient counseled regarding suspected diagnosis and given prescriptions for Tessalon Perles and Mucinex. Advised to follow-up with primary care as needed for any new or worsening symptoms. ASSESSMENT/PLAN: 1. Viral URI - ICD9: 465.9, ICD10: J06.9 (primary diagnosis) - Discussed viral etiology and rationale for treatment. - Symptomatic treatment with prn analgesia - Supportive care with fluids and rest 2. Acute cough - ICD9: 786.2, ICD10: R05.1 - COVID & INFLUENZA A/B & RSV PCR, ROUTINE - BENZONATATE 100 MG CAPSULE 3. Chest congestion - ICD9: 786.9, ICD10: R09.89 - COVID & INFLUENZA A/B & RSV PCR, ROUTINE - GUAIFENESIN ER 600 MG TABLET, EXTENDED RELEASE 12 HR 4. Chest tightness - ICD9: 786.59, ICD10: R07.89 - COVID & INFLUENZA A/B & RSV PCR, ROUTINE 5. Headaches - ICD9: 784.0, ICD10: R51.9 - COVID & INFLUENZA A/B & RSV PCR, ROUTINE Medical Decision Making: Problems: Low: Acute, uncomplicated illness or injury Risk: Minimal: Minimal risk from testing/treatment Moderate: Drug management Medical Decision Making Level: 3 - Low I spent a total of 20 minutes on the date of the service which included preparing to see the patient, [id number] patient care, completing clinical documentation, performing a medically appropriate examination, counseling and educating the patient/family/caregiver, and ordering medications, tests,or procedures. Tomas Oneal PA-C documented in this encounterPromedica [facility]01-21-[facility]25 Instructions* Patient Instructions* Tomas Oneal PA-C - 11/14/2024 1:54 PM EST Viral Syndrome Your doctor wanted you to have the following information about viral syndrome... You are getting this information because you have symptoms related to a viral syndrome. Your body is actively fighting a virus. There are many viruses and they can cause different symptoms depending on what body part they attack. Some symptoms of a viral syndrome are: Fever (temperature higher than 100.4 F or 38 C). Headaches. Fatigue (feeling tired) and body soreness. A clogged-up or runny nose. Sore throat. Cough. Rash. Nausea (feeling sick to the stomach) and vomiting (throwing up). Diarrhea (watery poop). Stomach cramps. Basic care for a viral syndrome is to rest and drink lots of fluids. You will feel better over time. Recommended non-prescription medications by symptom Cough, Non-productive (not coughing up phlegm) - Cough suppressant containing dextromethorphan (Robitussin DM or Delsym ) Cough, Productive (coughing up phlegm) - Cough suppressant (see above) - Expectorant: Mucinex tablets or plain guaifenesin syrup, also known as Robitussin Fever/Headache/Muscle Aches - Acetaminophen (Tylenol ) - Non-Steroidal Anti-Inflammatory Drugs (NSAIDs) such as ibuprofen (Advil ) or naproxen (Aleve ) Nasal Stuffiness Saline nasal spray or a Neti Pot. - Nasal steroid sprays: Flonase or Nasacort - Decongestants: Topical spray: Oxymetazoline (Afrin Nasal Wheeler); limit to 3-4 days maximum Oral medication: Pseudoephedrine (Sudafed ) - MUST BE PURCHASED FROM PHARMACIST Runny and/or Itchy Nose/Sneezing - Nasal steroid sprays: Flonase or Nasacort - Antihistamine: Benadryl , which will likely cause drowsiness, or Loratadine (Alavert ), which is not as likely to cause drowsiness Sore Throat Pain Relief - Suck on throat lozenges, hard candy or popsicles - Gargle with warm salt water (1/4 tsp. salt per 8 oz. of water); and eat soft, bland foods. - Take acetaminophen (Tylenol ) or ibuprofen (Advil ). - Try throat sprays (Chloraseptic ). Unfortunately, there is still no cure for most viruses. Antibiotics don't work for viral illnesses.Antibiotics may cause side effects like rash or diarrhea (watery poop). Taking antibiotics when they are not needed might stop them from working if you get a bacterial infection later. Some serious infections can feel like a viral syndrome in the first few days. So it is important towatch your symptoms. See your doctor if you feel worse. See your doctor or go to the nearest Emergency Department if you: Have a fever (temperature higher than 100.4 F or 38 C) that won't go away. Have painful headache or stiff neck. Have constant vomiting or diarrhea (watery poop). Feel lightheaded, faint or might pass out. Have trouble breathing or shortness of breath. Feel confused or cannot think clearly. Are weak and cannot walk. Contact your doctor if you have any questions. If you think your symptoms are worse, go to the Emergency Department to be seen by a doctor. documented in this encounterPromedica [facility]06-17-2024 NoteHNO ID: [id number] Author: KUMAR OLIVARES APRN.COMMERCIAL DECORATOR Service: ? Author Type: Nurse Practitioner Type: Progress Notes Filed: 04/10/2024 12:40 Note Text: Subjective HPI Nontoxic-appearing male presents urgent care chief complaint flank pain. Duration of symptom 1 week. Associated symptoms flank pain abdominal pain. Patient states did have sharp pain. Did have some dysuria. States history of kidney stones this feels similar. Last stone was 5 mm. Has not used any OTC medications today. States he has been feeling nauseated and has had some hot flashes and night sweats. Presents today for evaluation. Concerned about possible UTI. Denies any productive cough hemoptysis chest pain or fevers. Past medical history prescription medications allergies reviewed. .Patient presents with: Urinary Problem: Burning with urination x 1 week History reviewed. No pertinent past medical history. History reviewed. No pertinent surgical history. ALLERGIES Amoxicillin, Bupropion, Celebrex [Celecoxib], Hydrocodone, Metformin, Varenicline, and Vicodin [Hydrocodone-Acetaminophen] MEDICATIONS fluticasone (FLONASE) 50 mcg/actuation nasal spray Use 2 Sprays in each nostril once daily. Rinse mouth after use. albuterol HFA (PROAIR HFA) 90 mcg/actuation inhaler Inhale 2 Puffs as instructed every 6 hours as needed. docusate sodium (COLACE) 100 mg capsule 100 mg. omega 0-fzh-zgf-fish oil (FISH OIL) 100-160-1,000 mg cap Take 1,000 mg by mouth once daily. cholecalciferol, vitamin D3, 10 mcg (400 unit) cap 2,000 Units. alfuzosin SR (UROXATRAL) 10 mg 24 hr tablet Take 10 mg by mouth. aspirin 81 mg chewable tablet Take 81 mg by mouth. glimepiride (AMARYL) 4 mg tablet Take 4 mg by mouth. gabapentin (NEURONTIN) 300 mg capsule 300 mg. morphine SR (MS CONTIN, ORAMORPH SR) 15 mg 12 hr tablet take 1 tablet by mouth three times a day if needed for pain meloxicam (MOBIC) 15 mg tablet 15 mg. ondansetron orally disintegrating (ZOFRAN ODT) 4 mg disintegrating tablet 4 mg three times daily. benzonatate (TESSALON PERLES) 100 mg capsule Take 2 capsules by mouth three times daily as needed. (Patient not taking: Reported on 04/10/2024) tamsulosin (FLOMAX) 0.4 mg Take 0.4 mg by mouth. (Patient not taking: Reported on 09/18/2022) History reviewed. No pertinent family history. Social History Tobacco Use Smoking status: Every Day Smokeless tobacco: Never BP 132/62 Pulse (!) 125 Temp 36.8 ?C (98.2 ?F) Resp 17 Wt 85.1 kg (187 lb 9.8 oz) SpO2 96% Review of Systems Constitutional: Positive for malaise/fatigue. Negative for chills and fever. HENT: Negative for congestion, ear discharge, ear pain, sinus pain and sore throat. Eyes: Negative for blurred vision, pain, discharge and redness. Respiratory: Negative for cough, hemoptysis, sputum production, shortness of breath, wheezing and stridor. Cardiovascular: Negative for chest pain. Gastrointestinal: Positive for nausea. Negative for abdominal pain, diarrhea and vomiting. Genitourinary: Positive for dysuria, flank pain, frequency and urgency. Negative for hematuria. Musculoskeletal: Positive for myalgias. Skin: Negative for itching and rash. Neurological: Negative for dizziness and headaches. Objective Physical Exam Constitutional: General: He is not in acute distress. Appearance: He is not diaphoretic. HENT: Head: Normocephalic. Mouth/Throat: Pharynx: Uvula midline. No pharyngeal swelling or uvula swelling. Eyes: Conjunctiva/sclera: Conjunctivae normal. Pupils: Pupils are equal, round, and reactive to light. Cardiovascular: Rate and Rhythm: Regular rhythm. Tachycardia present. Heart sounds: Normal heart sounds. Pulmonary: Effort: Pulmonary effort is normal. No tachypnea, accessory muscle usage or respiratory distress. Breath sounds: Normal breath sounds. No stridor. No wheezing, rhonchi or rales. Abdominal: General: There is no distension. Palpations: Abdomen is soft. Tenderness: There is no abdominal tenderness. There is left CVA tenderness. There is no guarding or rebound. Musculoskeletal: Cervical back: Normal range of motion and neck supple. No edema, erythema, rigidity or tenderness. No pain with movement. Normal range of motion. Lymphadenopathy: Cervical: No cervical adenopathy. Skin: General: Skin is warm and dry. Neurological: Mental Status: He is alert and oriented to person, place, and time. ASSESSMENT/PLAN: 1. Burning with urination - ICD9: 788.1, ICD10: R30.0 - UA DIP, URINE (POC) - URINE CULTURE Diagnosed with dysuria. No leukocytes blood or nitrites noted. Glucose was noted in urine. Patient is a diabetic on diabetic medications. Additionally noted patient was tachycardic and was sweating. Had moderate amount of tenderness with palpation to the left flank area. Recommend patient reaching out the urologist to see if he can be seen in office today if not be seen in ED for further ev (more content not included)...[facility] 04-10-2024 History of Present illness Narrative* Kumar Olivares APRN.[facility] - 04/10/2024 12:12 PM EDT Subjective HPI Nontoxic-appearing male presents urgent care chief complaint flank pain. Duration of symptom 1 week. Associated symptoms flank pain abdominal pain. Patient states did have sharp pain. Did have some dysuria. States history of kidney stones this feels similar. Last stone was 5 mm. Has not used any OTC medications today. States he has been feeling nauseated and has had some hot flashes and night sweats. Presents today for evaluation. Concerned about possible UTI. Denies any productive cough hemoptysis chest pain or fevers. Past medical history prescription medications allergies reviewed. .Patient presents with: Urinary Problem: Burning with urination x 1 week History reviewed. No pertinent past medical history. History reviewed. No pertinent surgical history. ALLERGIES Amoxicillin, Bupropion, Celebrex [Celecoxib], Hydrocodone, Metformin, Varenicline, and Vicodin [Hydrocodone-Acetaminophen] MEDICATIONS fluticasone (FLONASE) 50 mcg/actuation nasal spray Use 2 Sprays in each nostril once daily. Rinse mouth after use. albuterol HFA (PROAIR HFA) 90 mcg/actuation inhaler Inhale 2 Puffs as instructed every 6 hours as needed. docusate sodium (COLACE) 100 mg capsule 100 mg. omega 7-drq-tgy-fish oil (FISH OIL) 100-160-1,000 mg cap Take 1,000 mg by mouth once daily. cholecalciferol, vitamin D3, 10 mcg (400 unit) cap 2,000 Units. alfuzosin SR (UROXATRAL) 10 mg 24 hr tablet Take 10 mg by mouth. aspirin 81 mg chewable tablet Take 81 mg by mouth. glimepiride (AMARYL) 4 mg tablet Take 4 mg by mouth. gabapentin (NEURONTIN) 300 mg capsule 300 mg. morphine SR (MS CONTIN, ORAMORPH SR) 15 mg 12 hr tablet take 1 tablet by mouth three times a day if needed for pain meloxicam (MOBIC) 15 mg tablet 15 mg. ondansetron orally disintegrating (ZOFRAN ODT) 4 mg disintegrating tablet 4 mg three times daily. benzonatate (TESSALON PERLES) 100 mg capsule Take 2 capsules by mouth three times daily as needed. (Patient not taking: Reported on 04/10/2024) tamsulosin (FLOMAX) 0.4 mg Take 0.4 mg by mouth. (Patient not taking: Reported on 09/18/2022) History reviewed. No pertinent family history. Social History Tobacco Use Smoking status: Every Day Smokeless tobacco: Never BP 132/62 Pulse (!) 125 Temp 36.8 C (98.2 F) Resp 17 Wt 85.1 kg (187 lb 9.8 oz) SpO2 96% Review of Systems Constitutional: Positive for malaise/fatigue. Negative for chills and fever. HENT: Negative for congestion, ear discharge, ear pain, sinus pain and sore throat. Eyes: Negative for blurred vision, pain, discharge and redness. Respiratory: Negative for cough, hemoptysis, sputum production, shortness of breath, wheezing and stridor. Cardiovascular: Negative for chest pain. Gastrointestinal: Positive for nausea. Negative for abdominal pain, diarrhea and vomiting. Genitourinary: Positive for dysuria, flank pain, frequency and urgency. Negative for hematuria. Musculoskeletal: Positive for myalgias. Skin: Negative for itching and rash. Neurological: Negative for dizziness and headaches. Objective Physical Exam Constitutional: General: He is not in acute distress. Appearance: He is not diaphoretic. HENT: Head: Normocephalic. Mouth/Throat: Pharynx: Uvula midline. No pharyngeal swelling or uvula swelling. Eyes: Conjunctiva/sclera: Conjunctivae normal. Pupils: Pupils are equal, round, and reactive to light. Cardiovascular: Rate and Rhythm: Regular rhythm. Tachycardia present. Heart sounds: Normal heart sounds. Pulmonary: Effort: Pulmonary effort is normal. No tachypnea, accessory muscle usage or respiratory distress. Breath sounds: Normal breath sounds. No stridor. No wheezing, rhonchi or rales. Abdominal: General: There is no distension. Palpations: Abdomen is soft. Tenderness: There is no abdominal tenderness. There is left CVA tenderness. There is no guarding orrebound. Musculoskeletal: Cervical back: Normal range of motion and neck supple. No edema, erythema, rigidity or tenderness. No pain with movement. Normal range of motion. Lymphadenopathy: Cervical: No cervical adenopathy. Skin: General: Skin is warm and dry. Neurological: Mental Status: He is alert and oriented to person, place, and time. ASSESSMENT/PLAN: 1. Burning with urination - ICD9: 788.1, ICD10: R30.0 - UA DIP, URINE (POC) - URINE CULTURE Diagnosed with dysuria. No leukocytes blood or nitrites noted. Glucose was noted in urine. Patient is a diabetic on diabetic medications. Additionally noted patient was tachycardic and was sweating. Had moderate amount of tenderness with palpation to the left flank area. Recommend patient reaching out the urologist to see if he can be seen in office today if not be seen in ED for further evaluation care. Verbalized understand agrees with plan of care. Kumar Olivares APRN.DAVID documented in this encounterPromedica [facility]07-19-[facility]23 Evaluation + Plan note Future Scheduled Tests Laboratory* Prostate Specific Antigen 05/12/23 * Thyroid Stimulating Hormone 05/12/23 * A1C Hemoglobin 05/12/23 * Lipid Profile 05/12/23 * Complete Metabolic Panel 05/12/23 [facility] 02-26-[address] Flores [facility] December 20, 2022 12:39pm Note Date/Time December 20, 2022 11:01am [facility] Medical Records Department [address] [place] [address] [place] [address] Emergency Department Summary 12/20/22 MR#: [id number] Acct: [id number] Name: AGAPITO MESSER Rep #:[id number] : 1950 72 From: Stiven Flores MD PCP: Dr. Isiah Lobo, DO Status:REG ER Location: ED HPI History of Present Illness Chief Complaint: Shortness of Breath Informant: patient Narrative Narrative: Patient presenting with cough and dyspnea with exertion for the past 9 or 10 days. In addition, after the cough started, his left ear started hurting and radiating down his left jaw. He has decreased hearing with this. Today, he hadsubjective fevers and chills. He was seen initially at the urgent care at [facility] here in [place], he states they did a COVID swab and influenza swab, those were negative, and needed a chest x-ray, and based on all of this diagnosed him with bronchitis and prescribed him cough suppressant, albuterol inhaler which has been helping some with the dyspnea on exertion, and he is progressively getting worse so he came to the emergency department. No known history of cardiac problems or COPD. Denies any leg swelling. He feels like he has a lot of chestcongestion, maybe some wheezing sometimes, it feels worse when he is having coughing spasms and along with some rib pain, but no other chest pain. [facility] Medical History (Updated 12/20/22 @ 12:[address] 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 Home Medications alfuzosin 10 mg tablet,extended release 24 hr 10 mg PO DAILY 08/05/17 [History Last Taken Unknown] gabapentin 300 mg capsule 300 mg PO BIDCM 08/05/17 [History Last Taken Unknown] glimepiride 4 mg tablet 4 mg PO DAILY 08/05/17 [History Last Taken Unknown] meloxicam 15 mg tablet 15 mg PO DAILY 08/05/17 [History Last Taken Unknown] ergocalciferol (vitamin D2) 1,250 mcg (50,000 unit) capsule 50 unit PO DAILY 09/04/20 [History Last Taken Unknown] fish oil-dha-epa 1,200 mg-144 mg-216 mg capsule 1 cap PO DAILY 09/04/20 [History Last Taken Unknown] morphine 15 mg tablet,extended release 15 mg PO TID PRN PRN Pain Score 1-10 09/04/20 [History Last Taken Unknown] ondansetron 4 mg disintegrating tablet 4 mg PO Q8H PRN PRN Nausea #10 tabs 09/15/22 [Rx Last Taken Unknown] amoxicillin 875 mg-potassium clavulanate 125 mg tablet 875 mg PO Q12H #20 TABLETS 12/20/22 [Rx Last Taken Unknown] tramadol 50 mg tablet 50 mg PO Q4H PRN PRN Pain 2 days #10 tabs 12/20/22 [Rx Last Taken Unknown] Allergy/AdvReac Type Severity Reaction Status Date / Time hydrocodone [From Vicodin] Allergy Rash Verified 12/20/22 10:41 celecoxib [From Celebrex] AdvReac goofy Verified 12/20/22 10:41 Surgical History (Updated 12/20/22 @ 10:59 by Beti Galvan) H/O lithotripsy Social History Smoking Status: Current every day smoker tobacco type: cigarettes ROS ROS ED Constitutional Constitutional ED: Reports chills, fever(s) and subjective; Denies body ache(s) ENT ENT ED: Reports ear pain left, nasal congestion and rhinorrhea; Denies sore throat Cardiovascular Cardiovascular: Denies chest pain, leg edema or palpitations Respiratory/Chest Respiratory/Chest: Reports cough, dyspnea, dyspnea on exertion and sputum Gastrointestinal Gastrointestinal: Denies abdominal pain, diarrhea, nausea or vomiting Genitourinary Genitourinary ED: Denies dysuria or hematuria Musculoskeletal Musculoskeletal: Denies myalgias or neck pain Integumentary Denies abscess or rash Neurologic Neurologic: Denies headache(s), paresthesias or weakness Psychiatric Psychiatric: Denies depression or suicidal thoughts Endocrine Endocrinology: Denies polydipsia or polyuria EXAM Physical Exam Const Vital Signs: 12/20/22 10:38 12/20/22 10:49 12/20/22 11:01 Temperature 97.5 F L 97.5 F L Temperature Source Temporal Temporal Pulse Rate 120 H 114 H Respiratory Rate 18 20 H Respiratory Effort Normal Non-Labored Respiratory Depth Normal Respiratory Pattern Normal Blood Pressure 141/77 H 147/85 H Blood Pressure Mean 98 105 Pulse Ox 97 96 Oxygen Delivery Method Room Air Room Air Room Air 12/20/22 11:16 12/20/22 12:14 12/20/22 12:14 Temperature 97.8 F 97.8 F Temperature Source Oral Oral Pulse Rate 108 H 102 H 102 H Respiratory Rate 17 13 13 Respiratory Effort Respiratory Depth Respiratory Pattern Blood Pressure 134/59 H 134/59 H Blood Pressure Mean 84 84 Pulse Ox 97 97 Oxygen Delivery Method Room Air Room Air Positive well nourished and well developed Constitutional Narrative: Well-appearing in no distress. General Appearance ED: well developed and NAD HEENT Reports moist mucous membranes HEENT Narrative: Right TM and EAC clear. Left TM is dulled, erythematous, the EAC is normal. normocephalic and atraumatic Throat: Negative for posterior oropharynx abnormal Eyes PERRL and EOMs intact bilaterally Neck no lymphadenopathy, supple, no meningeal signs and no JVD Resp normal respiratory effort and clear to auscultation bilaterally Resp Narrative: Pleasant, conversive in full sentences without any distress Cardio no murmurs Rate: regular rate and tachycardic Rhythm: regular rhythm Back/Spine no CVA tenderness and normal to inspection Neuro oriented x3, CN's II-XII intact bilaterally and no sensory deficits noted Sensorium / Orientation: alert Gait (Neuro): normal gait Motor Exam: strength 5/5 throughout Psych mental status grossly normal Skin Lesions: no lesions Rashes: no rashes MDM MDM MDM Narrative Medical decision making narrative: Patient is feeling a little better after nebulizer treatment, and he does have an albuterol inhaler at home. Chest x-ray 2 views of my interpretation does notshow pneumonia, there appears to be streaky abnormalities consistent with bronchitis on my interpretation. Still awaiting for the radiologist to interpret the film, but the patient would not like to wait any longer. Antibiotic is indicated at least for the otitis media, he understands that it may not fix his bronchitis if it is viral in etiology and he could have 2 different infections going on. At this time he is not hypoxic, stable for discharge home. I do not think he needs any steroids right now since he does not have a history of asthma or COPD. Given some tramadol for the pain in his ear. Lab Data Attestation: I reviewed the patient's lab results. Labs: Laboratory Results - last 24 hr 12/20/22 12:12 POC Glucose 250 H Radiography Chest X-Ray - ED: 2 View, Read by ED Physician, No Acute Disease, Chronic Changes and No Infiltrates Rhythm Strip Rhythm Strip: Sinus Tach Rate: 110 Ectopy: None Discharge Plan Triage Chief Complaint: Shortness of Breath Other Complaint: Cough ED Provider: Stiven Flores Dx/Rx/DC Orders Clinical Impression: Acute left otitis media, Acute bronchitis Instructions: Acute Bronchitis, ED Otitis Media Antibiotic ... Prescriptions: New tramadol 50 mg tablet 50 mg PO Q4H PRN PRN (Reason: Pain) 2 Days Qty: 10 0RF amoxicillin-pot clavulanate [amoxicillin-pot clavulanate] 875-125 mg tablet 875 mg PO Q12H Qty: 20 0RF No Action meloxicam 15 MG tablet 15 mg PO DAILY glimepiride 4 MG tablet 4 mg PO DAILY gabapentin 300 MG capsule 300 mg PO BIDCM alfuzosin 10 MG tablet extended release 24 hr 10 mg PO DAILY ergocalciferol (vitamin D2) 50,000 UNIT capsule 50 unit PO DAILY fish oil-dha-epa 1 EACH capsule 1 cap PO DAILY morphine 15 MG tablet extended release 15 mg PO TID PRN PRN (Reason: Pain Score 1-10) ondansetron [ondansetron] 4 MG tablet 4 mg PO Q8H PRN PRN (Reason: Nausea) Qty: 10 0RF Primary Care Provider: Isiah Lobo Referrals: Isiah Lobo DO [Primary Care Provider] - 3-5 Days if not improving Disposition Disposition: Home, Self Care What to do if you have Problems For any increased pain, shortness of breath, bleeding, nausea or vomiting, chestpain, or any unexpected problems, contact your Primary Care Provider. Call [facility] ([phone]) or report to the closest Emergency Room. Call 911 if necessary. 12/20/22 1239 <Electronically signed by Stiven Flores MD> Cosigner Signature (if applicable): CC: Dr. Isiah Lobo DO ~ Signed [facility] Work Phone: [phone] Miscellaneous Notes* Telephone Encounter - Carmen Melara MA - 12/17/2022 8:26 AM EST Patient notified of results, verbalized understanding of instructions given. Carmen Melara MA * Telephone Encounter - Carmen Melara MA - 12/17/2022 8:24 AM EST ----- Message from Cornelia Aviles APRN.CNP sent at 12/16/2022 8:09 PM EST ----- You tested negative for COVID and Influenza. If you were tested because you were having symptoms, please monitor these symptoms and for any worrisome symptoms, please call your primary care provider or schedule a visit with [facility]. Cornelia Aviles APRN.CNP documented in this encounterPromedica [facility]02-22-2023 History of Present illness Narrative* Addis Coelho PA-C - 12/16/2022 11:31 AM EST This note was created using [employer]. Subjective Agapito Messer is a 72 year old male. HPI Patient presents with cough, sinus congestion for 6 days. No fever. His chest velasco with coughing. He denies shortness of breath. He feels wheezy and raspy in his chest. Home covid test 2 days ago was negative. No nvd. He attended a a few days before the illness began. He tried mucinex otc. Review of Systems Constitutional: Positive for fatigue. Negative for fever. HENT: Positive for congestion, rhinorrhea, sinus pressure and sore throat. Respiratory: Positive for cough and wheezing. Negative for shortness of breath. Cardiovascular: Chest burning with cough Gastrointestinal: Negative. Genitourinary: Negative. Musculoskeletal: Positive for myalgias. Neurological: Positive for headaches. All other systems reviewed and are negative. No past medical history on file. Current Outpatient Medications Medication Sig Dispense Refill docusate sodium (COLACE) 100 mg capsule 100 mg. omega 2-nkj-sho-fish oil (FISH OIL) 100-160-1,000 mg cap Take 1,000 mg by mouth once daily. cholecalciferol, vitamin D3, 10 mcg (400 unit) cap 2,000 Units. alfuzosin SR (UROXATRAL) 10 mg 24 hr tablet Take 10 mg by mouth. aspirin 81 mg chewable tablet Take 81 mg by mouth. glimepiride (AMARYL) 4 mg tablet Take 4 mg by mouth. gabapentin (NEURONTIN) 300 mg capsule 300 mg. morphine SR (MS CONTIN, ORAMORPH SR) 15 mg 12 hr tablet take 1 tablet by mouth three times a day if needed for pain meloxicam (MOBIC) 15 mg tablet 15 mg. ondansetron orally disintegrating (ZOFRAN ODT) 4 mg disintegrating tablet 4 mg three times daily. fluticasone (FLONASE) 50 mcg/actuation nasal spray Use 2 Sprays in each nostril once daily. Rinse mouth after use. 1 Each 0 benzonatate (TESSALON PERLES) 100 mg capsule Take 2 capsules by mouth three times daily as needed. 30 capsule 0 albuterol HFA (PROAIR HFA) 90 mcg/actuation inhaler Inhale 2 Puffs as instructed every 6 hours as needed. 1 Each 0 tamsulosin (FLOMAX) 0.4 mg Take 0.4 mg by mouth. (Patient not taking: Reported on 09/18/2022) No current facility-administered medications for this visit. No past surgical history on file. No family history on file. Social History Tobacco Use Smoking status: Every Day Smokeless tobacco: Never Objective BP 122/64 Pulse 116 Temp 37 C (98.6 F) Resp 18 Wt 82.6 kg (182 lb) SpO2 96% Physical Exam Vitals reviewed. Constitutional: Appearance: Normal appearance. HENT: Head: Normocephalic and atraumatic. Right Ear: Tympanic membrane, ear canal and external ear normal. Left Ear: Tympanic membrane, ear canal and external ear normal. Nose: Congestion present. Mouth/Throat: Mouth: Mucous membranes are moist. Pharynx: Oropharynx is clear. Cardiovascular: Rate and Rhythm: Normal rate and regular rhythm. Heart sounds: Normal heart sounds. Pulmonary: Effort: Pulmonary effort is normal. Breath sounds: Normal breath sounds. Skin: General: Skin is warm and dry. Findings: No rash. Neurological: Mental Status: He is alert. Assessment and Plan ASSESSMENT/PLAN: 1. Bronchitis - ICD9: 490, ICD10: J40 (primary diagnosis) CXR clear. I feel he has a viral bronchitis. Given tessalon, albuterol mdi and Flonase for nasal congestin. Red flags to be seen again discussed. He is out of the window for antivirals for covid at this point. - XR CHEST 2V FRONTAL/LAT - COVID WITH FLUA+B, ROUTINE 2. Acute upper respiratory infection, unspecified - ICD9: 465.9, ICD10: J06.9 - COVID WITH FLUA+B, ROUTINE Addis Coelho PA-C documented in this encounterPromedica [facility]02-22-2023 Instructions* Patient Instructions* Addis Coelho PA-C - 12/16/2022 11:28 AM EST If you develop a fever, shortness of breath or worsening cough be seen again. If your sinus pressure doesn't get better in the next week as well be seen again. Most viruses last 7-10 days, sometimes the cough can last 2 weeks. We will let you know tomorrow about your covid test. documented in this encounterPromedica [facility]02-22-2023 History of Present illness Narrative* Feli Giles RT(R) - 12/16/2022 11:10 AM EST Radiology Service Progress Note PATIENT NAME: Agapito Messer DATE OF SERVICE: December 16, 2022 TIME: 11:07 AM PATIENT IDENTITY VERIFICATION COMPLETED USING TWO (2) IDENTIFIERS: Name and Date of confirmedby patient verbally. FALL SCREENING: Has the patient had 2 falls in the last year or 1 fall with injury or currently using an Ambulatory Assistive Device (Walker, Cane, Wheelchair, Crutches, etc.)? No PATIENT GENDER DATA: Male PATIENT RELEVANT IMPLANT DATA REVIEWED: Not Applicable RADIOLOGY DEPARTMENT: General X-ray: Exam(s) Completed: Chest X-Ray PERIPHERAL IV DATA: Not applicable SIGNED BY: RT Mikey(R) December 16, 2022 11:07 AM documented in this encounterPromedica Bay Park [facility]11-25-2022 History of Present illness Narrative* Kumar Olivares APRN.COMMERCIAL DECORATOR - 09/18/2022 5:36 PM EST Subjective HPI Nontoxic-appearing male presents urgent care chief complaint lower back pain chills and transient nausea. Duration of symptoms 3 days. Associated symptoms listed above. Patient was seen at [facility] 3 days ago diagnosed with kidney stone. CT revealed a one 4 to 5 mm stone. Patient was able to pass the stone yesterday morning. Has had transient nausea and slight chills. States feels like stone is still present. States he was able to pass urine. No blood in urine. Denies any fever no current abdominal pain. Denies any productive cough chest pain shortness of breath or change in bowel habits. No rashes. is recovering from COVID-19. Diagnosed with COVID-19 l ittle over a week ago. Did finish antiviral medications. Past medical history prescription medication use allergies reviewed. .Patient presents with: UTI: Low back pain, chills, nausea x3 days History reviewed. No pertinent past medical history. History reviewed. No pertinent surgical history. ALLERGIES Amoxicillin, Bupropion, Celebrex [Celecoxib], Hydrocodone, Metformin, Varenicline, and Vicodin [Hydrocodone-Acetaminophen] MEDICATIONS docusate sodium (COLACE) 100 mg capsule 100 mg. omega 1-zef-cql-fish oil (FISH OIL) 100-160-1,000 mg cap Take 1,000 mg by mouth once daily. cholecalciferol, vitamin D3, 10 mcg (400 unit) cap 2,000 Units. alfuzosin SR (UROXATRAL) 10 mg 24 hr tablet Take 10 mg by mouth. aspirin 81 mg chewable tablet Take 81 mg by mouth. glimepiride (AMARYL) 4 mg tablet Take 4 mg by mouth. gabapentin (NEURONTIN) 300 mg capsule 300 mg. morphine SR (MS CONTIN, ORAMORPH SR) 15 mg 12 hr tablet take 1 tablet by mouth three times a day if needed for pain meloxicam (MOBIC) 15 mg tablet 15 mg. ondansetron orally disintegrating (ZOFRAN ODT) 4 mg disintegrating tablet 4 mg three times daily. tamsulosin (FLOMAX) 0.4 mg Take 0.4 mg by mouth. (Patient not taking: Reported on 09/18/2022) History reviewed. No pertinent family history. Social History Tobacco Use Smoking status: Every Day Smokeless tobacco: Never BP 122/74 Pulse 105 Temp 36.6 C (97.8 F) Resp 18 Wt 86.2 kg (190 lb) SpO2 97% Hr 92 Review of Systems Constitutional: Negative for chills, fever and malaise/fatigue. HENT: Negative for congestion, ear discharge, ear pain, sinus pain and sore throat. Eyes: Negative for blurred vision, pain, discharge and redness. Respiratory: Negative for cough, hemoptysis, sputum production, shortness of breath, wheezing and stridor. Cardiovascular: Negative for chest pain. Gastrointestinal: Negative for abdominal pain, diarrhea, nausea and vomiting. Genitourinary: Positive for flank pain. Negative for dysuria, frequency, hematuria and urgency. Musculoskeletal: Negative for myalgias. Skin: Negative for itching and rash. Neurological: Negative for dizziness and headaches. Objective Physical Exam Constitutional: General: He is not in acute distress. Appearance: He is not diaphoretic. HENT: Head: Normocephalic. Mouth/Throat: Mouth: Mucous membranes are moist. Pharynx: Oropharynx is clear. No oropharyngeal exudate or posterior oropharyngeal erythema. Eyes: Conjunctiva/sclera: Conjunctivae normal. Pupils: Pupils are equal, round, and reactive to light. Cardiovascular: Rate and Rhythm: Normal rate and regular rhythm. Heart sounds: Normal heart sounds. Pulmonary: Effort: Pulmonary effort is normal. No tachypnea, accessory muscle usage or respiratory distress. Breath sounds: Normal breath sounds. No stridor. No wheezing, rhonchi or rales. Abdominal: General: There is no distension. Palpations: Abdomen is soft. Tenderness: There is no abdominal tenderness. There is left CVA tenderness. There is no right CVA tenderness, guarding or rebound. Musculoskeletal: Cervical back: Normal range of motion and neck supple. No rigidity or tenderness. Lymphadenopathy: Cervical: No cervical adenopathy. Skin: General: Skin is warm and dry. Neurological: Mental Status: He is alert and oriented to person, place, and time. ASSESSMENT/PLAN: 1. Acute bilateral low back pain without sciatica - ICD9: 724.2, 338.19, ICD10: M54.50 (primary diagnosis) - UA DIP, URINE (POC) 2. Glucose found in urine on examination - ICD9: 791.5, ICD10: R81 - GLUCOSE, BLOOD (POC) Urine dip negative minus glucose. Fingerstick 123. Nontoxic-appearing. No evidence of acute abdomen. Afebrile. We discussed symptoms. Patient placed on Macrobid. Follow-up with urology on Wednesday reevaluation. Patient was educated on supportive therapies. Patient was instructed to immediately proceed to emergency room for any new, worsening, or symptoms lasting longer than anticipated. The patient's clinical presentation is otherwise unremarkable at this time. Based on exam and clinical finding,the patient is stable for discharge. Plan of care was discussed with patient. Patient verbalizes und erstanding and agrees to plan of care. This note was generated using [employer] software. It may contain errors in wording, punctuation, or spelling. Kumar Olivares APRN.DAVID documented in this encounterPromedica [facility]11-11-2022 Evaluation + Plan note Extracted from: Title:Clinical Document Author:YANI DOUGHERTY Date:09/04/22 [place] ADMISSION HISTORY AN D PHYSICIAL CHIEF COMPLAINT: HISTORY OF PRESENT ILLNESS: REVIEW OF SYSTEMS: ACTIVE PROBLEMS: (29) Anxiety (31561613) Anxiety depression (399041113) Arthritis ([id number]) BMI 25.0-25.9,adult (0021382256) BPH (benign prostatic hyperplasia) (174097768) Chronic low back pain (491166647) Diabetes ([id number]) Diabetes (049180876) Dysphagia (04196360) Fatigue (225780623) Fatty liver (5342169942) GERD - Gastro-esophageal reflux disease (1331488476) Heavy smoker (852866314) Hypertriglyceridemia (205253368) Kidney stones ([id number]) Medicare annual wellness visit, subsequent (940258957) Need for hepatitis C screening test (476906033) Need for influenza vaccination (851722020) Need for vaccination against Streptococcus pneumoniae (2455962836) Risk and functional assessment (630970278) Screening for colon cancer (835715970) Screening for prostate cancer (863727209) Shortness of breath (549925991) Sleep apnea (100254371) Statin intolerance (2204838059) TIA (transient ischemic attack) (905524776) Tobacco use (9262602513) Trouble in sleeping (089484527) Vitamin D deficiency (85299384) MEDICATIONS: Active Inpt Meds: None Active PRN Meds: None One Time Meds: None Active IV Meds: Lactated Ringers Infusion 1,000 mL (LR 1,000 mL) Start: 09/04/22 10:37:00 EST, Rate: 50 mL/hr, 09/04/22 10:37:00 EST ALLERGIES: (6) amoxicillin CeleBREX Chantix Hannibal Vicodin Wellbutrin FAMILY HISTORY: SOCIAL HISTORY: PHYSICAL EXAM: VITALS: [id number](kg) 09/04 11:05--------97.8--09/04 84.3 09/04 10:3936.2--959887FX07/11 84.3 24 Hr Tmax: 36.2 at 09/04 10:39 36 Hr Tmax: 36.2 at 09/04 10:39 Vital Signs are the last 5 in the past 48 hours. Weights display the last 5 within 7 days. Initial Wt: 09/04 84.3 kg 185 lb Current Wt: 09/04 84.3 kg 185 lb GENERAL: HEENT: CARDIOVASCULAR: RESPIRATORY: ABDOMEN: EXREMETIES: NEUROLOGICAL: PSYCHIATRIC: LABS: 36hr Labs 09/04 1039 Blood Glucose, [id number] Blood Glucose, [id number] DIAGNOSTICS: IMPRESSION: PLAN: History and Physical Update I have examined the patient; reviewed the H&P and there are no changes to the H&P unless noted below. Future Appointments Appointment Date:11/13/2022 04:00:00 PM Scheduled Provider:ISIAH LOBO DO Location:[facility] Appointment Type:[facility] 11-11-2022 Hospital Discharge instructions Patient Education 09/04/2022 11:42:38 Monitored Anesthesia Care, Care After Monitored Anesthesia Care, Care After These instructions provide you with information about caring for yourself after your procedure. Your health care provider may also give you more specific instructions. Your treatment has been plannedaccording to current medical practices, but problems sometimes occur. Call your health care provider if you have any problems or questions after your procedure. What can I expect after the procedure? After your procedure, you may: Feel sleepy for several hours. Feel clumsy and have poor balance for several hours. Feel forgetful about what happened after the procedure. Have poor judgment for several hours. Feel nauseous or vomit. Have a sore throat if you had a breathing tube during the procedure. Follow these instructions at home: For at least 24 hours after the procedure: Have a responsible adult stay with you. It is important to have someone help care for you until youare awake and alert. Rest as needed. Do not: ?Participate in activities in which you could fall or become injured. ?Drive. ?Use heavy machinery. ?Drink alcohol. ?Take sleeping pills or medicines that cause drowsiness. ?Make important decisions or sign legal documents. ?Take care of children on your own. Eating and drinking Follow the diet that is recommended by your health care provider. If you vomit, drink water, juice, or soup when you can drink without vomiting. Make sure you have little or no nausea before eating solid foods. General instructions Take chwm-gud-xwzbkfn and prescription medicines only as told by your health care provider. If you have sleep apnea, surgery and certain medicines can increase your risk for breathing problems. Follow instructions from your health care provider about wearing your sleep device: ?Anytime you are sleeping, including during daytime naps. ?While taking prescription pain medicines, sleeping medicines, or medicines that make you drowsy. If you smoke, do not smoke without supervision. Keep all follow-up visits as told by your health care provider. This is important. Contact a health care provider if: You keep feeling nauseous or you keep vomiting. You feel light-headed. You develop a rash. You have a fever. Get help right away if: You have trouble breathing. Summary For several hours after your procedure, you may feel sleepy and have poor judgment. Have a responsible adult stay with you for at least 24 hours or until you are awake and alert. This information is not intended to replace advice given to you by your health care provider. Make sure you discuss any questions you have with your health care provider. Document Released: 01/31/2017 Document Revised: 01/09/2019 Document Reviewed: 01/31/2017 [employer] Patient Education 2020 [employer]. 09/04/2022 11:42:16 Esophageal Dilatation Esophageal Dilatation Esophageal dilatation, also called esophageal dilation, is a procedure to widen or open (dilate) a blocked or narrowed part of the esophagus. The esophagus is the part of the body that moves food andliquid from the mouth to the stomach. You may need this procedure if: You have a buildup of scar tissue in your esophagus that makes it difficult, painful, or impossibleto swallow. This can be caused by gastroesophageal reflux disease (GERD). You have cancer of the esophagus. There is a problem with how food moves through your esophagus. In some cases, you may need this procedure repeated at a later time to dilate the esophagus gradually. Tell a health care provider about: Any allergies you have. All medicines you are taking, including vitamins, herbs, eye drops, creams, and pqrl-iqe-wrzfqek medicines. Any problems you or family members have had with anesthetic medicines. Any blood disorders you have. Any surgeries you have had. Any medical conditions you have. Any antibiotic medicines you are required to take before dental procedures. Whether you are or may be . What are the risks? Generally, this is a safe procedure. However, problems may occur, including: Bleeding due to a tear in the lining of the esophagus. A hole (perforation) in the esophagus. What happens before the procedure? Follow instructions from your health care provider about eating or drinking restrictions. Ask your health care provider about changing or stopping your regular medicines. This is especiallyimportant if you are taking diabetes medicines or blood thinners. Plan to have someone take you home from the hospital or clinic. Plan to have a responsible adult care for you for at least 24 hours after you leave the hospital orclinic. This is important. What happens during the procedure? You may be given a medicine to help you relax (sedative). A numbing medicine may be sprayed into the back of your throat, or you may gargle the medicine. Your health care provider may perform the dilatation using various surgical instruments, such as: ?Simple dilators. This instrument is carefully placed in the esophagus to stretch it. ?Guided wire bougies. This involves using an endoscope to insert a wire into the esophagus. A dilator is passed over this wire to enlarge the esophagus. Then the wire is removed. ?Balloon dilators. An endoscope with a small balloon at the end is inserted into the esophagus. Theballoon is inflated to stretch the esophagus and open it up. The procedure may vary among health care providers and hospitals. What happens after the procedure? Your blood pressure, heart rate, breathing rate, and blood oxygen level will be monitored until themedicines you were given have worn off. Your throat may feel slightly sore and numb. This will improve slowly over time. You will not be allowed to eat or drink until your throat is no longer numb. When you are able to drink, urinate, and sit on the edge of the bed without nausea or dizziness, you may be able to return home. Follow these instructions at home: Take ilzy-wom-mhcaeai and prescription medicines only as told by your health care provider. Do not drive for 24 hours if you were given a sedative during your procedure. You should have a responsible adult with you for 24 hours after the procedure. Follow instructions from your health care provider about any eating or drinking restrictions. Do not use any products that contain nicotine or tobacco, such as cigarettes and e-cigarettes. If you need help quitting, ask your health care provider. Keep all follow-up visits as told by your health care provider. This is important. Get help right away if you: Have a fever. Have chest pain. Have pain that is not relieved by medication. Have trouble breathing. Have trouble swallowing. Vomit blood. Summary Esophageal dilatation, also called esophageal dilation, is a procedure to widen or open (dilate) a blocked or narrowed part of the esophagus. Plan to have someone take you home from the hospital or clinic. For this procedure, a numbing medicine may be sprayed into the back of your throat, or you may gargle the medicine. Do not drive for 24 hours if you were given a sedative during your procedure. This information is not intended to replace advice given to you by your health care provider. Make sure you discuss any questions you have with your health care provider. Document Released: 12/02/2006 Document Revised: 09/23/2018 Document Reviewed: 08/16/2018 [employer] Patient Education 2020 [employer]. 09/04/2022 11:42:16 Esophageal Dilatation Esophageal Dilatation Esophageal dilatation, also called esophageal dilation, is a procedure to widen or open (dilate) a blocked or narrowed part of the esophagus. The esophagus is the part of the body that moves food andliquid from the mouth to the stomach. You may need this procedure if: You have a buildup of scar tissue in your esophagus that makes it difficult, painful, or impossibleto swallow. This can be caused by gastroesophageal reflux disease (GERD). You have cancer of the esophagus. There is a problem with how food moves through your esophagus. In some cases, you may need this procedure repeated at a later time to dilate the esophagus gradually. Tell a health care provider about: Any allergies you have. All medicines you are taking, including vitamins, herbs, eye drops, creams, and tasx-vei-lajbput medicines. Any problems you or family members have had with anesthetic medicines. Any blood disorders you have. Any surgeries you have had. Any medical conditions you have. Any antibiotic medicines you are required to take before dental procedures. Whether you are or may be . What are the risks? Generally, this is a safe procedure. However, problems may occur, including: Bleeding due to a tear in the lining of the esophagus. A hole (perforation) in the esophagus. What happens before the procedure? Follow instructions from your health care provider about eating or drinking restrictions. Ask your health care provider about changing or stopping your regular medicines. This is especiallyimportant if you are taking diabetes medicines or blood thinners. Plan to have someone take you home from the hospital or clinic. Plan to have a responsible adult care for you for at least 24 hours after you leave the hospital orclinic. This is important. What happens during the procedure? You may be given a medicine to help you relax (sedative). A numbing medicine may be sprayed into the back of your throat, or you may gargle the medicine. Your health care provider may perform the dilatation using various surgical instruments, such as: ?Simple dilators. This instrument is carefully placed in the esophagus to stretch it. ?Guided wire bougies. This involves using an endoscope to insert a wire into the esophagus. A dilator is passed over this wire to enlarge the esophagus. Then the wire is removed. ?Balloon dilators. An endoscope with a small balloon at the end is inserted into the esophagus. Theballoon is inflated to stretch the esophagus and open it up. The procedure may vary among health care providers and hospitals. What happens after the procedure? Your blood pressure, heart rate, breathing rate, and blood oxygen level will be monitored until themedicines you were given have worn off. Your throat may feel slightly sore and numb. This will improve slowly over time. You will not be allowed to eat or drink until your throat is no longer numb. When you are able to drink, urinate, and sit on the edge of the bed without nausea or dizziness, you may be able to return home. Follow these instructions at home: Take sgpe-rvq-iytnnde and prescription medicines only as told by your health care provider. Do not drive for 24 hours if you were given a sedative during your procedure. You should have a responsible adult with you for 24 hours after the procedure. Follow instructions from your health care provider about any eating or drinking restrictions. Do not use any products that contain nicotine or tobacco, such as cigarettes and e-cigarettes. If you need help quitting, ask your health care provider. Keep all follow-up visits as told by your health care provider. This is important. Get help right away if you: Have a fever. Have chest pain. Have pain that is not relieved by medication. Have trouble breathing. Have trouble swallowing. Vomit blood. Summary Esophageal dilatation, also called esophageal dilation, is a procedure to widen or open (dilate) a blocked or narrowed part of the esophagus. Plan to have someone take you home from the hospital or clinic. For this procedure, a numbing medicine may be sprayed into the back of your throat, or you may gargle the medicine. Do not drive for 24 hours if you were given a sedative during your procedure. This information is not intended to replace advice given to you by your health care provider. Make sure you discuss any questions you have with your health care provider. Document Released: 12/02/2006 Document Revised: 09/23/2018 Document Reviewed: 08/16/2018 [employer] Patient Education 2020 [employer]. Follow Up Care 08/27/2022 15:43:40 With:YANI DOUGHERTY Address: [address] [facility] [address] [place] [phone] Business (1) When: only if needed Comments:CALL DR. DOUGHERTY'S OFFICE IN A COULE OF WEEKS AND LET HIM KNOW HOW YOU ARE DOING. [facility] 11-11-2022 Summary of episode note Discharge Instructions Thank you for allowing [facility] to assist you with your healthcare needs. The following is importantdischarge information regarding your hospital visit. Your Care Team ISIAH LOBO DO DR. DOUGHERTY What to do next Scheduled Follow-Up Appointments Appointment Type When With Where Contact InformationPC 11/13/2022 04:00 PM EST ISIAH LOBO [address] [id number] Follow Up Appointments Follow Up with YANI DOUGHERTY When Only if needed Why: CALL DR. DOUGHERTY'S OFFICE IN A COULE OF WEEKS AND LET HIM KNOW HOW YOU ARE DOING. Where: [address] [facility] [address] [place] [phone] Business (1) Allergies CeleBREX (Abdominal pain) Chantix Hannibal (Hives) Vicodin Wellbutrin (Short of breath on exertion, Fatigue, Nauseated) amoxicillin (Headache, Nausea, SOB - Shortness of breath) Medications Please ask your primary doctor or pharmacist before taking any other medication not listed, including over the counter drugs, herbal medications, vitamins and or supplements as they may interact withyour home medications. What How Much When Why Instructions Last Dose Unchanged alfuzosin (alfuzosin 10 mg oral tablet, extended release) 1 tab(s) by mouth Once a day Unchanged aspirin (aspirin 81 mg oral tablet (chewable)) 1 tab(s) by mouth Daily at bedtime Unchanged busPIRone (busPIRone 10 mg oral tablet) 1 tab(s) by mouth Three (3) times a day Trouble in sleeping Anxiety depression Unchanged cholecalciferol (Vitamin D3) 2,000 unit(s) by mouth Once a day Unchanged docusate (Colace) 100 Milligram by mouth Two (2) times a day Unchanged empagliflozin (empagliflozin 10 mg oral tablet) 1 tab(s) by mouth Once a day (in the morning) Unchanged gabapentin (Neurontin 300 mg oral capsule) 1 cap by mouth Two (2) times a day Unchanged glimepiride (glimepiride 4 mg oral tablet) 1 tab(s) by mouth Once a day Unchanged losartan (losartan 25 mg oral tablet) 1 tab(s) by mouth Once a day Diabetes Unchanged meloxicam (Mobic 15 mg oral tablet) 1 tab(s) by mouth Once a day with a meal Unchanged morphine (morphine 15 mg/ 8 to 12 hr oral tablet, extended release) take 1 tablet by mouth three times a day if needed for pain Unchanged omega-3 polyunsaturated fatty acids (Fish Oil 1000 mg oral capsule) 1 cap by mouth Once a day Please take this list to your next doctor s visit. Bring all medications you take, including over the counter medications, herbals and other supplements with you to your doctor s visit. Patients and families are reminded to discard old lists and to update any records with all medication providers or retail pharmacies. Education Materials Monitored Anesthesia Care, Care After These instructions provide you with information about caring for yourself after your procedure. Your health care provider may also give you more specific instructions. Your treatment has been plannedaccording to current medical practices, but problems sometimes occur. Call your health care provider if you have any problems or questions after your procedure. What can I expect after the procedure? After your procedure, you may: Feel sleepy for several hours. Feel clumsy and have poor balance for several hours. Feel forgetful about what happened after the procedure. Have poor judgment for several hours. Feel nauseous or vomit. Have a sore throat if you had a breathing tube during the procedure. Follow these instructions at home: For at least 24 hours after the procedure: Have a responsible adult stay with you. It is important to have someone help care for you until youare awake and alert. Rest as needed. Do not: ? Participate in activities in which you could fall or become injured. ? Drive. ? Use heavy machinery. ? Drink alcohol. ? Take sleeping pills or medicines that cause drowsiness. ? Make important decisions or sign legal documents. ? Take care of children on your own. Eating and drinking Follow the diet that is recommended by your health care provider. If you vomit, drink water, juice, or soup when you can drink without vomiting. Make sure you have little or no nausea before eating solid foods. General instructions Take algj-sqs-mozbblp and prescription medicines only as told by your health care provider. If you have sleep apnea, surgery and certain medicines can increase your risk for breathing problems. Follow instructions from your health care provider about wearing your sleep device: ? Anytime you are sleeping, including during daytime naps. ? While taking prescription pain medicines, sleeping medicines, or medicines that make you drowsy. If you smoke, do not smoke without supervision. Keep all follow-up visits as told by your health care provider. This is important. Contact a health care provider if: You keep feeling nauseous or you keep vomiting. You feel light-headed. You develop a rash. You have a fever. Get help right away if: You have trouble breathing. Summary For several hours after your procedure, you may feel sleepy and have poor judgment. Have a responsible adult stay with you for at least 24 hours or until you are awake and alert. This information is not intended to replace advice given to you by your health care provider. Make sure you discuss any questions you have with your health care provider. Document Released: 01/31/2017 Document Revised: 01/09/2019 Document Reviewed: 01/31/2017 [employer] Patient Education 2020 [employer] Esophageal Dilatation Esophageal dilatation, also called esophageal dilation, is a procedure to widen or open (dilate) a blocked or narrowed part of the esophagus. The esophagus is the part of the body that moves food andliquid from the mouth to the stomach. You may need this procedure if: You have a buildup of scar tissue in your esophagus that makes it difficult, painful, or impossibleto swallow. This can be caused by gastroesophageal reflux disease (GERD). You have cancer of the esophagus. There is a problem with how food moves through your esophagus. In some cases, you may need this procedure repeated at a later time to dilate the esophagus gradually. Tell a health care provider about: Any allergies you have. All medicines you are taking, including vitamins, herbs, eye drops, creams, and nauu-rmh-ticifru medicines. Any problems you or family members have had with anesthetic medicines. Any blood disorders you have. Any surgeries you have had. Any medical conditions you have. Any antibiotic medicines you are required to take before dental procedures. Whether you are or may be . What are the risks? Generally, this is a safe procedure. However, problems may occur, including: Bleeding due to a tear in the lining of the esophagus. A hole (perforation) in the esophagus. What happens before the procedure? Follow instructions from your health care provider about eating or drinking restrictions. Ask your health care provider about changing or stopping your regular medicines. This is especiallyimportant if you are taking diabetes medicines or blood thinners. Plan to have someone take you home from the hospital or clinic. Plan to have a responsible adult care for you for at least 24 hours after you leave the hospital orclinic. This is important. What happens during the procedure? You may be given a medicine to help you relax (sedative). A numbing medicine may be sprayed into the back of your throat, or you may gargle the medicine. Your health care provider may perform the dilatation using various surgical instruments, such as: ? Simple dilators. This instrument is carefully placed in the esophagus to stretch it. ? Guided wire bougies. This involves using an endoscope to insert a wire into the esophagus. A dilator is passed over this wire to enlarge the esophagus. Then the wire is removed. ? Balloon dilators. An endoscope with a small balloon at the end is inserted into the esophagus. The balloon is inflated to stretch the esophagus and open it up. The procedure may vary among health care providers and hospitals. What happens after the procedure? Your blood pressure, heart rate, breathing rate, and blood oxygen level will be monitored until themedicines you were given have worn off. Your throat may feel slightly sore and numb. This will improve slowly over time. You will not be allowed to eat or drink until your throat is no longer numb. When you are able to drink, urinate, and sit on the edge of the bed without nausea or dizziness, you may be able to return home. Follow these instructions at home: Take fyhx-kxr-uvypuxp and prescription medicines only as told by your health care provider. Do not drive for 24 hours if you were given a sedative during your procedure. You should have a responsible adult with you for 24 hours after the procedure. Follow instructions from your health care provider about any eating or drinking restrictions. Do not use any products that contain nicotine or tobacco, such as cigarettes and e-cigarettes. If you need help quitting, ask your health care provider. Keep all follow-up visits as told by your health care provider. This is important. Get help right away if you: Have a fever. Have chest pain. Have pain that is not relieved by medication. Have trouble breathing. Have trouble swallowing. Vomit blood. Summary Esophageal dilatation, also called esophageal dilation, is a procedure to widen or open (dilate) a blocked or narrowed part of the esophagus. Plan to have someone take you home from the hospital or clinic. For this procedure, a numbing medicine may be sprayed into the back of your throat, or you may gargle the medicine. Do not drive for 24 hours if you were given a sedative during your procedure. This information is not intended to replace advice given to you by your health care provider. Make sure you discuss any questions you have with your health care provider. Document Released: 12/02/2006 Document Revised: 09/23/2018 Document Reviewed: 08/16/2018 [employer] Patient Education 2020 [employer]. Esophageal Dilatation Esophageal dilatation, also called esophageal dilation, is a procedure to widen or open (dilate) a blocked or narrowed part of the esophagus. The esophagus is the part of the body that moves food andliquid from the mouth to the stomach. You may need this procedure if: You have a buildup of scar tissue in your esophagus that makes it difficult, painful, or impossibleto swallow. This can be caused by gastroesophageal reflux disease (GERD). You have cancer of the esophagus. There is a problem with how food moves through your esophagus. In some cases, you may need this procedure repeated at a later time to dilate the esophagus gradually. Tell a health care provider about: Any allergies you have. All medicines you are taking, including vitamins, herbs, eye drops, creams, and jjwy-isc-asgnsdr medicines. Any problems you or family members have had with anesthetic medicines. Any blood disorders you have. Any surgeries you have had. Any medical conditions you have. Any antibiotic medicines you are required to take before dental procedures. Whether you are or may be . What are the risks? Generally, this is a safe procedure. However, problems may occur, including: Bleeding due to a tear in the lining of the esophagus. A hole (perforation) in the esophagus. What happens before the procedure? Follow instructions from your health care provider about eating or drinking restrictions. Ask your health care provider about changing or stopping your regular medicines. This is especiallyimportant if you are taking diabetes medicines or blood thinners. Plan to have someone take you home from the hospital or clinic. Plan to have a responsible adult care for you for at least 24 hours after you leave the hospital orclinic. This is important. What happens during the procedure? You may be given a medicine to help you relax (sedative). A numbing medicine may be sprayed into the back of your throat, or you may gargle the medicine. Your health care provider may perform the dilatation using various surgical instruments, such as: ? Simple dilators. This instrument is carefully placed in the esophagus to stretch it. ? Guided wire bougies. This involves using an endoscope to insert a wire into the esophagus. A dilator is passed over this wire to enlarge the esophagus. Then the wire is removed. ? Balloon dilators. An endoscope with a small balloon at the end is inserted into the esophagus. The balloon is inflated to stretch the esophagus and open it up. The procedure may vary among health care providers and hospitals. What happens after the procedure? Your blood pressure, heart rate, breathing rate, and blood oxygen level will be monitored until themedicines you were given have worn off. Your throat may feel slightly sore and numb. This will improve slowly over time. You will not be allowed to eat or drink until your throat is no longer numb. When you are able to drink, urinate, and sit on the edge of the bed without nausea or dizziness, you may be able to return home. Follow these instructions at home: Take ypze-kmg-ixsiqbg and prescription medicines only as told by your health care provider. Do not drive for 24 hours if you were given a sedative during your procedure. You should have a responsible adult with you for 24 hours after the procedure. Follow instructions from your health care provider about any eating or drinking restrictions. Do not use any products that contain nicotine or tobacco, such as cigarettes and e-cigarettes. If you need help quitting, ask your health care provider. Keep all follow-up visits as told by your health care provider. This is important. Get help right away if you: Have a fever. Have chest pain. Have pain that is not relieved by medication. Have trouble breathing. Have trouble swallowing. Vomit blood. Summary Esophageal dilatation, also called esophageal dilation, is a procedure to widen or open (dilate) a blocked or narrowed part of the esophagus. Plan to have someone take you home from the hospital or clinic. For this procedure, a numbing medicine may be sprayed into the back of your throat, or you may gargle the medicine. Do not drive for 24 hours if you were given a sedative during your procedure. This information is not intended to replace advice given to you by your health care provider. Make sure you discuss any questions you have with your health care provider. Document Released: 12/02/2006 Document Revised: 09/23/2018 Document Reviewed: 08/16/2018 [employer] Patient Education 2020 [employer] Additional Information VACCINATE! IT SAVES LIVES! Members of the community who have not yet received the COVID-19 vaccine and would like to receive it can visit one of [facility] vaccine clinics. There are many vaccine clinic locations within the [facility]. For locations and available times, please visit [email or web address].gov/. It is important to note that some COVID mobile vaccine clinics are held outdoors and may be canceled in rainy or stormy conditions. To learn more about pediatric vaccinations (ages 5-11), we invite you to visit the [facility] webpage. [email or web address] learn more about the COVID-19 vaccine, we invite you to visit the [facility] website for a list of frequently asked questions. [email or web address] [facility] Patient Portal Access Instructions: Stay connected with your healthcare team and access your personal medical information anytime with the [facility] Patient Portal.If you would like a full copy of your medical records, please contact the [facility] Medical Records Department, Wednesday through Wednesday between 8a.m. and 4:30p.m. Please follow the directions below to access the portal: 1.Access the email account you provided upon registration to the [facility] hospital.2.Look for an invitation email from [facility].3.Open the email and access the invitation link: Accept Invitation to [facility]4.Fill in the required morris to create your account. Sign into [email or web address] with your username and password that you created in the above steps to stay up to date. You can then view a summary of results, a summary of your visits, and the ability to download your summaries to your computer or send the information securely to a physician. Remember that your healthcare information is confidential, so carefully consider who you will allow to register on the [facility] Patient Portal for access to your information. You can also access the [facility] Patient Portal on the Mobile Broad[employer]. Simply click on Health Records under [employer] and then click on the [employer] logo. HOW TO SAFELY DISPOSE OF PRESCRIPTION MEDICATIONS Please use one of the following methods to safely dispose of your unused medications. 1.Use a drug disposal kit: the drug disposal pouch allows you to safely discard your old and unuseddrugs. Ask your nurse to give you one when you are discharged.2.Visit a local take-back location: Many local pharmacies and police departments have programs that collect old and unwanted prescriptiondrugs. Call your local pharmacy or go to http://[email or web address] to find one close to you.3.Make use of household items: Use cat litter or old coffee grounds to dispose medications if other options arenot available. Mix your drugs with these household products, seal them in an airtight container andthrow it into the garbage. Call [facility]: [phone] to be sure your drugs can be disposed of in this way. Some medicines may require a different approach.4.Never flush your medications down the toilet. IF YOU HAVE BEEN PRESCRIBED AN OPIOID FOR PAIN If you have been prescribed an opioid (such as hydrocodone, oxycodone or morphine), it is critical to understand the possible side effects and risks of opioid pain medications. Even when taken as directed, opioids can have several side effects including: Tolerance, meaning you might need to take more of a medication for the same pain relief. Nausea, vomiting and/or constipation. Sleepiness, dizziness, dry mouth, confusion, depression or itching. Physical dependence, meaning you have withdrawal symptoms when a medication is stopped, can develop within a few days. KNOW YOUR RESPONSIBILITIES It is important to know exactly how much and how often to take the opioid pain medications you are prescribed. Never take opioids in higher amounts or more often than prescribed. Do not combine opioids with alcohol or other drugs that cause drowsiness, such as benzodiazepines, also known as benzos, including diazepam and alprazolam, muscle relaxants or sleep aids. Never sell or share prescription opioids. This is illegal. Store opioids in a secure place and out of reach of others (including children, family, friends and visitors). The last page of this document has been signed and retained as a CHART COPY. Signatures Patient Education Materials Monitored Anesthesia Care, Care After Esophageal Dilatation Esophageal Dilatation Medication Leaflets My discharge plan and instructions have been reviewed and explained to me and I,AGAPITO MESSER understand my current condition and have read and understand these discharge instructions. I have received a written copy of the plan/instructions. If I have questions, I am aware that I should contactmy doctor. 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 Mental status: at preoperative baseline. Respiratory function: lungs are clear to auscultation. Respiratory support: none. CV function: Normal rate. Cardiovascular support: none. Pain. Nausea status: denies nausea. Postoperative hydration status: within normal limits. Digitally Signed by CHARLOTTE ESQUIVEL on 09/04/2022 11:26 AM [facility]11-11-2022 Note [facility] ADMISSION HISTORY AND PHYSICIAL CHIEF COMPLAINT: HISTORY OF PRESENT ILLNESS: REVIEW OF SYSTEMS: ACTIVE PROBLEMS: (29) Anxiety (09613982) Anxiety depression (560891347) Arthritis ([id number]) BMI 25.0-25.9,adult (6657023883) BPH (benign prostatic hyperplasia) (835880254) Chronic low back pain (004813173) Diabetes ([id number]) Diabetes (983625879) Dysphagia (53948034) Fatigue (217447952) Fatty liver (4860740198) GERD - Gastro-esophageal reflux disease (4508582105) Heavy smoker (191246049) Hypertriglyceridemia (358872059) Kidney stones ([id number]) Medicare annual wellness visit, subsequent (185744867) Need for hepatitis C screening test (395173357) Need for influenza vaccination (921621233) Need for vaccination against Streptococcus pneumoniae (7799208297) Risk and functional assessment (747266441) Screening for colon cancer (682963911) Screening for prostate cancer (262872597) Shortness of breath (578856064) Sleep apnea (797649334) Statin intolerance (2170424108) TIA (transient ischemic attack) (544110698) Tobacco use (2176526447) Trouble in sleeping (212634609) Vitamin D deficiency (83864314) MEDICATIONS: Active Inpt Meds: None Active PRN Meds: None One Time Meds: None Active IV Meds: Lactated Ringers Infusion 1,000 mL (LR 1,000 mL) Start: 09/04/22 10:37:00 EST, Rate: 50 mL/hr, 09/04/22 10:37:00 EST ALLERGIES: (6) amoxicillin CeleBREX Chantix Hannibal Vicodin Wellbutrin FAMILY HISTORY: SOCIAL HISTORY: PHYSICAL EXAM: VITALS: OazxatTrrxATBmouzHMFqN9RFP2ObddIq(kg) 09/04 11:05--------97.8--09/04 84.3 09/04 10:3936.2--792486QB61/11 84.3 24 Hr Tmax: 36.2 at 09/04 10:39 36 Hr Tmax: 36.2 at 09/04 10:39 Vital Signs are the last 5 in the past 48 hours. Weights display the last 5 within 7 days. Initial Wt: 09/04 84.3 kg 185 lb Current Wt: 09/04 84.3 kg 185 lb GENERAL: HEENT: CARDIOVASCULAR: RESPIRATORY: ABDOMEN: EXREMETIES: NEUROLOGICAL: PSYCHIATRIC: LABS: 36hr Labs 09/04 1039 Blood Glucose, Slwcetges594C Blood Glucose, Crxlvkkzw634P DIAGNOSTICS: IMPRESSION: PLAN: History and Physical Update I have examined the patient; reviewed the H&P and there are no changes to the H&P unless noted below. Digitally Signed by YANI DOUGHERTY MD on 09/04/2022 11:12 AM [facility]11-11-2022 Anesthesiology Consult note Patient: AGAPITO MESSER Age: 71 years Sex: Male : 1950 Associated Diagnoses: None Author: CHARLOTTE ESQUIVEL Preoperative Information Time of last food or liquid consumption: 09/04/2022 00:00:00 Anesthesia history Patient's history: negative. Family's history: negative. Health Status Allergies: Allergic Reactions (Selected) Severity Not Documented Amoxicillin- Nausea, sob - shortness of breath and headache. CeleBREX- Abdominal pain. Chantix- No reactions were documented. Hannibal- Hives. Vicodin- No reactions were documented. Wellbutrin- Nauseated, fatigue and short of breath on exertion., Allergies (6) ActiveReaction amoxicillinNausea CeleBREXAbdominal pain ChantixNone Documented NorcoHives VicodinNone Documented WellbutrinFatigue Current medications: (Selected) Inpatient Medications Ordered LR 1,000 mL: 50 mL/hr, Intravenous Prescriptions Prescribed busPIRone 10 mg oral tablet: 10 mg, 1 tab(s), Oral, TID, 90 tab(s), 5 Refill(s) losartan 25 mg oral tablet: 25 mg, 1 tab(s), Oral, qDay, 90 tab(s), 1 Refill(s) Documented Medications Documented Colace: 100 mg, Oral, BID, 0 Refill(s) Fish Oil 1000 mg oral capsule: 1,000 mg, 1 cap(s), Oral, qDay, 0 Refill(s) Mobic 15 mg oral tablet: 15 mg, 1 tab(s), Oral, qDayM, 90 tab(s), 0 Refill(s) Neurontin 300 mg oral capsule: 300 mg, 1 cap(s), Oral, BID, 0 Refill(s) Vitamin D3: 2,000 unit(s), 1 tab(s), Oral, qDay, 60 tab(s), 0 Refill(s) alfuzosin 10 mg oral tablet, extended release: 10 mg, 1 tab(s), Oral, qDay, 30 tab(s), 0 Refill(s) aspirin 81 mg oral tablet (chewable): 81 mg, 1 tab(s), Oral, qHS, 0 Refill(s) empagliflozin 10 mg oral tablet: 10 mg, 1 tab(s), Oral, qAM, 0 Refill(s) glimepiride 4 mg oral tablet: 4 mg, 1 tab(s), Oral, qDay, 30 tab(s) morphine 15 mg/8 to 12 hr oral tablet, extended release: take 1 tablet by mouth three times a day if needed for pain, Medications (1) Active Scheduled: (0) Continuous: (1) Lactated Ringers Infusion 1,000 mL 1,000 mL, Intravenous, 50 mL/hr PRN: (0) Problem list: Medical Anxiety / SNOMED CT 56128076 / Confirmed Anxiety depression / SNOMED CT 360549856 / Confirmed Arthritis / SNOMED CT [id number]-[id number] / Confirmed BPH (benign prostatic hyperplasia) / SNOMED CT 029328144 / Confirmed Chronic low back pain / SNOMED CT 573294981 / Confirmed Diabetes / SNOMED CT [id number] / Confirmed Diabetes / SNOMED CT 226865572 / Confirmed Dysphagia / SNOMED CT 50014585 / Confirmed Shortness of breath / SNOMED CT 089897688 / Confirmed Fatigue / SNOMED CT 733641164 / Confirmed Fatty liver / SNOMED CT 4907074337 / Confirmed GERD - Gastro-esophageal reflux disease / SNOMED CT 1137460940 / Confirmed Hypertriglyceridemia / SNOMED CT 159325017 / Confirmed Trouble in sleeping / SNOMED CT 083466959 / Confirmed Kidney stones / SNOMED CT [id number] / Confirmed Need for influenza vaccination / SNOMED CT 792508012 / Confirmed BMI 25.0-25.9,adult / SNOMED CT 1744790579 / Confirmed Screening for colon cancer / SNOMED CT 714880437 / Confirmed Screening for prostate cancer / SNOMED CT 028266180 / Confirmed Medicare annual wellness visit, subsequent / SNOMED CT 225128592 / Confirmed Risk and functional assessment / SNOMED CT 135019333 / Confirmed Need for vaccination against Streptococcus pneumoniae / SNOMED CT 0500191985 / Confirmed Heavy smoker / SNOMED CT 951999775 / Confirmed Statin intolerance / SNOMED CT 1936619601 / Confirmed Tobacco use / SNOMED CT 4544725128 / Confirmed TIA (transient ischemic attack) / SNOMED CT 372712094 / Confirmed Need for hepatitis C screening test / SNOMED CT 577840882 / Confirmed Vitamin D deficiency / SNOMED CT 32165980 / Confirmed, Active Problems (29) Anxiety Anxiety depression Arthritis BMI 25.0-25.9,adult BPH (benign prostatic hyperplasia) Chronic low back pain Diabetes Diabetes Dysphagia Fatigue Fatty liver GERD - Gastro-esophageal reflux disease Heavy smoker Hypertriglyceridemia Kidney stones Medicare annual wellness visit, subsequent Need for hepatitis C screening test Need for influenza vaccination Need for vaccination against Streptococcus pneumoniae Risk and functional assessment Screening for colon cancer Screening for prostate cancer Shortness of breath Sleep apnea Statin intolerance TIA (transient ischemic attack) Tobacco use Trouble in sleeping Vitamin D deficiency Histories Past Medical History: Active Diabetes ([id number]) Arthritis ([id number]) BPH (benign prostatic hyperplasia) (526974155) TIA (transient ischemic attack) (678992402) Chronic low back pain (539806979) Family History: Asthma Sister Daughter Son Mother Heart disease Mother Son Substance abuse Son Alcohol abuse Father Son Mental illness Mother Depression Mother Sister Alzheimer's disease Mother Grandparent Osteoarthritis Mother Procedure history: Esophagogastroduodenoscopy (701565380) on 09/04/2022 at 71 Years. Esophagogastroduodenoscopy (609957760) on 11/05/2017 at 67 Years. Rotator cuff - right (96141334). Comments: 05/09/2019 18:35 EDT - Hellen Donovan LPN right Oral surgery (3663744035). Amputation (289997462). Comments: 05/09/2019 18:36 EDT Hellen Baum LPN right middle finger, reattached and pinned Cystoscopy (39285176). Social History Social & Psychosocial Habits Alcohol 09/12/2017Risk Assessment: Denies Alcohol Use 05/09/2019 Use: Never Substance Abuse 09/12/2017Risk Assessment: Denies Substance Abuse 05/09/2019 Use: Never Tobacco 05/29/2020 Tobacco Use: 10 or more cigarettes (1/, cut back from 2ppd to 1ppd Exposure to Tobacco Smoke Lives with someone who sm Home/Environment 05/09/2019 Living situation: Home/Independent Nutrition/Health 05/09/2019 Caffeine intake amount: 2 daily . Physical Examination Vital Signs 09/04/2022 10:39 EST Temperature Temporal Artery 36.2 DegC Peripheral Pulse Rate 93 bpm Respiratory Rate 14 br/min Systolic Blood Pressure Non-Invasive 127 mmHg Diastolic Blood Pressure Non-Invasive 82 mmHg Vital Signs(last 24 hrs) Last Charted Resp Rate 14 br/min (SEP 04 10:39) XQH866 mmHg (SEP 04 10:39) DBP82 mmHg (SEP 04 10:39) BMI25.45 (SEP 04 11:00) Measurements from flowsheet : Measurements 09/04/2022 11:00 EST Height 182 cm Admission Weight 84.3 kg Landis Body Weight 76.80 kg BSA Admission 2.06 Body Mass Index 25.45 kg/m2 09/04/2022 10:39 EST Height 182 cm Admission Weight 84.3 kg Landis Body Weight 76.80 kg Admission Body Mass Index 25.45 m2 Pain assessment: Pain Assessment 09/04/2022 10:39 EST Pain Scale Type 0-10 Pain scale . General: Alert and oriented. Airway: Normal temporomandibular joint mobility. Mallampati classification: II (soft palate, fauces, uvula visible). Head: Normocephalic. Dentition Evaluation: Intact, Missing teeth. Neck: Supple. Respiratory: Lungs are clear to auscultation. Cardiovascular: Normal rate. Heart Sounds: Normal. Gastrointestinal: Soft. Musculoskeletal Normal range of motion. Integumentary: Intact. Neurologic: Alert. Review / Management Results review: No qualifying data available , Lab results 09/04/2022 11:06 EST SN - PP - Body Position Lateral Right Side-up Standard Intra-op 09/04/2022 11:06 EST SN - GCD - Post-operative Diagnosis DYSPHAGIA SN - GCD - Case Level OPD Level 3 09/04/2022 11:05 EST SN - Cul - Culture Type No Specimen per Surgeon 09/04/2022 11:05 EST SN - CAt - Case Attendee SN - CAt - Case Attendee SN - CAt - Case Attendee SN - CAt - Case Attendee SN - CAt - Case Attendee SN - CAt - Case Attendee SN - CAt - Role Performed RAND TACKER SN - CAt - Role Performed Retail Sales Manager SN - CAt - Role Performed Sports Editor 1 09/04/2022 11:05 EST SN - Proc - Anesthesia Type MAC SN - Proc - EBL 0 mL SN - Proc - Actual Procedure ESOPHAGOGASTRODUODENOSCOPY WITH POSSIBLE DILATION SN - CAt - Case Attendee SN - CAt - Case Attendee SN - CAt - Role Performed Primary Surgeon 09/04/2022 11:00 EST Designated Person #1 We May Share PHI Designated Person #1 We May Share PHI Designated Person #1 Relationship Spouse Height 182 cm Admission Weight 84.3 kg Landis Body Weight 76.80 kg BSA Admission 2.06 Body Mass Index 25.45 kg/m2 Status N/A Sensory Deficits None Infectious Disease Symptoms Patient states no symptoms Infectious Disease Recent Exposure No Alcohol and Drug Use No Employee of Institutional Living No Health Care Employee No History of Exposure to TB No History of Positive Chest X-Ray for TB No History of Positive TB Skin Test No Homeless No Known Immunosuppression No Recent Immigrant No Resident of Institutional Living No Bloody Sputum No Fatigue No Fever No Loss of Appetite No Night Sweats No Persistent Cough > 3 Weeks No Weight Loss No Barriers to Learning None evident Teaching Method Explanation Preferred Written Language Monegasque Preferred Spoken Language Monegasque Information Given by Spouse Patient's Current Physicians Patient's Current Physicians Discharge To, Anticipated Home with family care Prev Test Positive/Diagnosis w/COVID-19 No Current Quarantine/Isolated any Illness No Any Contact with Sick Animals/Birds No Traveled Anywhere in Last 30 Days No N/A Personal Devices, Patient Valuables None Admission Note-Nursing Procedure/Therapy Intake 09/04/2022 10:55 EST Lactated Ringers Injection Begin Bag 1,000 mL mL 09/04/2022 10:39 EST Blood Glucose, Capillary 128 mg/dL HI Height 182 cm Admission Weight 84.3 kg Landis Body Weight 76.80 kg Admission Body Mass Index 25.45 m2 Temperature Temporal Artery 36.2 DegC Peripheral Pulse Rate 93 bpm Respiratory Rate 14 br/min Systolic Blood Pressure Non-Invasive 127 mmHg Diastolic Blood Pressure Non-Invasive 82 mmHg Pain Scale Type 0-10 Pain scale Heart Rhythm Regular Oxygen Therapy Room air Oxygen Saturation 97 % Abdomen Description Non-distended Bowel Sounds All Quadrants Present Urinary Elimination Voiding, no difficulties Skin Temperature Warm Skin Description [place], Dry Skin Integrity Intact Mucous Membrane Color [place] Skin Moisture General Dry IV Present Present Continuous IV Infusions LR Hand Right 09/04/2022 22 gauge Peripheral IV Activity: Insert new site Peripheral IV Dressing Condition: Clean, Dry, Intact Peripheral IV Dressing Activity: Applied, Transparent dressing Peripheral IV Line Status/Patency: Continuous infusion Peripheral IV Site Condition: No complications Peripheral IV Equipment: Extension set Peripheral IV Number of Attempts: 1 Characteristics of Speech Clear Level of Consciousness Alert Strength All Extremities Strong Affect/Behavior Appropriate, Calm, Cooperative Orientation Oriented x 4 Allergies Yes Special Education Secretary On Yes Consent Form Signed Yes Patient Dressed In Hospital gown History & Physical Update On Chart Yes History & Physical On Chart Yes Obstructive Sleep Apnea Assess Completed No Belongings At Bedside Pants, Shirt, Shoes, Socks, Undergarments Personal Home Medications Received No home medications were brought in Belongings Sent To Security None Activity Status ADL Ambulating in room, Awake Assistive Device None NPO Status Maintained Standard Safety ID band on, Allergy Band on Allergy Band on and Verified Yes Blood Band on and Verified No Patient ID Band on and Verified Yes Implants Verified Yes Pacemaker/AICD Verified Yes Anesthesia Consent Signed Yes Blood Consent Signed No Last Fluid Intake 09/03/2022 21:00 Last Food Intake 09/03/2022 21:00 Last Void 09/04/2022 10:54 . Assessment and Plan Citizen Of [place] Society of Anesthesiologists (ASA) physical status classification: Class III. Anesthetic Preoperative Plan Premedication: None. Anesthetic technique: MAC. Induction: intravenously. Postoperative pain management: Per surgeon. Risks discussed: nausea, vomiting, headache, sore throat, dental injury, hypotension, allergic reaction, serious complications. Informed consent: signed by patient. Digitally Signed by CHARLOTTE ESQUIVEL on 09/04/2022 11:08 AM [facility]07-25-2022 Evaluation + Plan noteExtracted from: Title:Clinical Document Author:YANI DOUGHERTY Date:05/18/22 [facility] ADMISSION HISTORY AN D PHYSICIAL CHIEF COMPLAINT: HISTORY OF PRESENT ILLNESS: REVIEW OF SYSTEMS: ACTIVE PROBLEMS: (23) Anxiety (46372872) Anxiety depression (054486625) Arthritis ([id number]-HXM1P553V709) BPH (benign prostatic hyperplasia) (182858777) Chronic low back pain (158326895) Diabetes ([id number]-159D624Q41I1) Dysphagia (46926680) Fatigue (804948772) Fatty liver (2067973955) GERD - Gastro-esophageal reflux disease (4219767329) Heavy smoker (308596354) Hypertriglyceridemia (086428965) Kidney stones ([id number]) Need for influenza vaccination (380353578) Need for vaccination against Streptococcus pneumoniae (0580599559) Screening for colon cancer (159477925) Shortness of breath (043407944) Sleep apnea (745484639) Statin intolerance (5497782296) TIA (transient ischemic attack) (040888337) Tobacco use (8128674190) Trouble in sleeping (381685375) Vitamin D deficiency (38929853) MEDICATIONS: Active Inpt Meds: None Active PRN Meds: None One Time Meds: None Active IV Meds: Lactated Ringers Infusion 1,000 mL (LR 1,000 mL) Start: 05/18/22 7:12:00 EDT, Rate: 50 mL/hr, 05/18/22 7:12:00 EDT ALLERGIES: (6) amoxicillin CeleBREX Chantix Hannibal Vicodin Wellbutrin FAMILY HISTORY: SOCIAL HISTORY: PHYSICAL EXAM: VITALS: PbsgquXrboNSSybsiOCLkE8KCL8DzpnMh(kg) 05/18 07:1336.5126/8644623--ZK61/25 84.1 05/18 84.1 24 Hr Tmax: 36.5 at 05/18 07:13 36 Hr Tmax: 36.5 at 05/18 07:13 Vital Signs are the last 5 in the past 48 hours. Weights display the last 5 within 7 days. Initial Wt: 05/18 84.1 kg 185 lb Current Wt: 05/18 84.1 kg 185 lb GENERAL: HEENT: CARDIOVASCULAR: RESPIRATORY: ABDOMEN: EXREMETIES: NEUROLOGICAL: PSYCHIATRIC: LABS: 36hr Labs 05/18 0713 Blood Glucose, Pbqjtqyiq100O Blood Glucose, Uttuyirlg187D DIAGNOSTICS: IMPRESSION: PLAN: History and Physical Update I have examined the patient; reviewed the H&P and there are no changes to the H&P unless noted below. Future Appointments Appointment Date:06/02/2022 09:00:00 AM Scheduled Provider:ISIAH LOBO DO Location:[facility] Appointment Type:PC Wellness Medicare Future Scheduled Tests Radiology* XR Chest 2 Views (PA & Lateral) 06/04/21 [facility] 07-25-2022 Hospital Discharge instructions Patient Education 05/18/2022 08:40:03 Monitored Anesthesia Care, Care After Monitored Anesthesia Care, Care After These instructions provide you with information about caring for yourself after your procedure. Your health care provider may also give you more specific instructions. Your treatment has been plannedaccording to current medical practices, but problems sometimes occur. Call your health care provider if you have any problems or questions after your procedure. What can I expect after the procedure? After your procedure, you may: Feel sleepy for several hours. Feel clumsy and have poor balance for several hours. Feel forgetful about what happened after the procedure. Have poor judgment for several hours. Feel nauseous or vomit. Have a sore throat if you had a breathing tube during the procedure. Follow these instructions at home: For at least 24 hours after the procedure: Have a responsible adult stay with you. It is important to have someone help care for you until youare awake and alert. Rest as needed. Do not: ?Participate in activities in which you could fall or become injured. ?Drive. ?Use heavy machinery. ?Drink alcohol. ?Take sleeping pills or medicines that cause drowsiness. ?Make important decisions or sign legal documents. ?Take care of children on your own. Eating and drinking Follow the diet that is recommended by your health care provider. If you vomit, drink water, juice, or soup when you can drink without vomiting. Make sure you have little or no nausea before eating solid foods. General instructions Take luev-the-ltjcjda and prescription medicines only as told by your health care provider. If you have sleep apnea, surgery and certain medicines can increase your risk for breathing problems. Follow instructions from your health care provider about wearing your sleep device: ?Anytime you are sleeping, including during daytime naps. ?While taking prescription pain medicines, sleeping medicines, or medicines that make you drowsy. If you smoke, do not smoke without supervision. Keep all follow-up visits as told by your health care provider. This is important. Contact a health care provider if: You keep feeling nauseous or you keep vomiting. You feel light-headed. You develop a rash. You have a fever. Get help right away if: You have trouble breathing. Summary For several hours after your procedure, you may feel sleepy and have poor judgment. Have a responsible adult stay with you for at least 24 hours or until you are awake and alert. This information is not intended to replace advice given to you by your health care provider. Make sure you discuss any questions you have with your health care provider. Document Released: 01/31/2017 Document Revised: 01/09/2019 Document Reviewed: 01/31/2017 [employer] Patient Education 2020 [employer]. 05/18/2022 08:39:52 Colonoscopy, Adult, Care After, Widr-wv-Omsr Colonoscopy, Adult, Care After This sheet gives you information about how to care for yourself after your procedure. Your doctor may also give you more specific instructions. If you have problems or questions, call your doctor. What can I expect after the procedure? After the procedure, it is common to have: A small amount of blood in your poop for 24 hours. Some gas. Mild cramping or bloating in your belly. Follow these instructions at home: General instructions For the first 24 hours after the procedure: ?Do not drive or use machinery. ?Do not sign important documents. ?Do not drink alcohol. ?Do your daily activities more slowly than normal. ?Eat foods that are soft and easy to digest. Take kspu-yvw-uzoqobi or prescription medicines only as told by your doctor. To help cramping and bloating: Try walking around. Put heat on your belly (abdomen) as told by your doctor. Use a heat source that your doctor recommends, such as a moist heat pack or a heating pad. ?Put a towel between your skin and the heat source. ?Leave the heat on for 20 30 minutes. ?Remove the heat if your skin turns bright red. This is especially important if you cannot feel pain, heat, or cold. You can get burned. Eating and drinking Drink enough fluid to keep your pee (urine) clear or pale yellow. Return to your normal diet as told by your doctor. Avoid heavy or fried foods that are hard to digest. Avoid drinking alcohol for as long as told by your doctor. Contact a doctor if: You have blood in your poop (stool) 2 3 days after the procedure. Get help right away if: You have more than a small amount of blood in your poop. You see large clumps of tissue (blood clots) in your poop. Your belly is swollen. You feel sick to your stomach (nauseous). You throw up (vomit). You have a fever. You have belly pain that gets worse, and medicine does not help your pain. Summary After the procedure, it is common to have a small amount of blood in your poop. You may also have mild cramping and bloating in your belly. For the first 24 hours after the procedure, do not drive or use machinery, do not sign important documents, and do not drink alcohol. Get help right away if you have a lot of blood in your poop, feel sick to your stomach, have a fever, or have more belly pain. This information is not intended to replace advice given to you by your health care provider. Make sure you discuss any questions you have with your health care provider. Document Released: 11/13/2011 Document Revised: 08/11/2018 Document Reviewed: 07/05/2017 [employer] Patient Education 2020 [employer]. Follow Up Care 04/10/2022 07:45:00 With:YANI DOUGHERTY MD Address: [address] [facility] [place] [phone] When: Unknown Comments:CALL DR DOUGHERTY WITH ANY QUESTIONS. GO TO THE EMERGENCY ROOM WITH ANY URGENT CONCERNS. [facility] 07-25-2022 Summary of episode note Discharge Instructions Thank you for allowing [facility] to assist you with your healthcare needs. The following is importantdischarge information regarding your hospital visit. Your Care Team ISIAH LOBO DO DR DOUGHERTY Your Diagnosis COLONOSCOPY What to do next Scheduled Follow-Up Appointments Appointment Type When With Where Contact [facility] Medicare 06/02/2022 09:00 AM EDT ISIAH LOBO DO [facility] [address] [place] [phone] Follow Up Appointments Follow Up with YANI DOUGHERTY MD When Why: CALL DR DOUGHERTY WITH ANY QUESTIONS. GO TO THE EMERGENCY ROOM WITH ANY URGENT CONCERNS. Where: [address] [facility] [address] [place] [phone] Allergies CeleBREX (Abdominal pain) Chantix Hannibal (Hives) Vicodin Wellbutrin (Short of breath on exertion, Fatigue, Nauseated) amoxicillin (Headache, Nausea, SOB - Shortness of breath) Medications Please ask your primary doctor or pharmacist before taking any other medication not listed, including over the counter drugs, herbal medications, vitamins and or supplements as they may interact withyour home medications. What How Much When Why Instructions Last Dose Unchanged alfuzosin (alfuzosin 10 mg oral tablet, extended release) 1 tab(s) by mouth Once a day Unchanged aspirin (aspirin 81 mg oral tablet (chewable)) 1 tab(s) by mouth Daily at bedtime Unchanged busPIRone (busPIRone 10 mg oral tablet) 1 tab(s) by mouth Three (3) times a day Trouble in sleeping Anxiety depression Unchanged cholecalciferol (Vitamin D3) 2,000 unit(s) by mouth Once a day Unchanged docusate (Colace) 100 Milligram by mouth Two (2) times a day Unchanged empagliflozin (empagliflozin 10 mg oral tablet) 1 tab(s) by mouth Once a day (in the morning) Unchanged gabapentin (Neurontin 300 mg oral capsule) 1 cap by mouth Two (2) times a day Unchanged glimepiride (glimepiride 4 mg oral tablet) 1 tab(s) by mouth Once a day Unchanged losartan (losartan 25 mg oral tablet) 1 tab(s) by mouth Once a day Diabetes Unchanged meloxicam (Mobic 15 mg oral tablet) 1 tab(s) by mouth Once a day with a meal Unchanged morphine (morphine 15 mg/ 8 to 12 hr oral tablet, extended release) take 1 tablet by mouth three times a day if needed for pain Unchanged omega-3 polyunsaturated fatty acids (Fish Oil 1000 mg oral capsule) 1 cap by mouth Once a day Please take this list to your next doctor s visit. Bring all medications you take, including over the counter medications, herbals and other supplements with you to your doctor s visit. Patients and families are reminded to discard old lists and to update any records with all medication providers or retail pharmacies. Education Materials Monitored Anesthesia Care, Care After These instructions provide you with information about caring for yourself after your procedure. Your health care provider may also give you more specific instructions. Your treatment has been plannedaccording to current medical practices, but problems sometimes occur. Call your health care provider if you have any problems or questions after your procedure. What can I expect after the procedure? After your procedure, you may: Feel sleepy for several hours. Feel clumsy and have poor balance for several hours. Feel forgetful about what happened after the procedure. Have poor judgment for several hours. Feel nauseous or vomit. Have a sore throat if you had a breathing tube during the procedure. Follow these instructions at home: For at least 24 hours after the procedure: Have a responsible adult stay with you. It is important to have someone help care for you until youare awake and alert. Rest as needed. Do not: ? Participate in activities in which you could fall or become injured. ? Drive. ? Use heavy machinery. ? Drink alcohol. ? Take sleeping pills or medicines that cause drowsiness. ? Make important decisions or sign legal documents. ? Take care of children on your own. Eating and drinking Follow the diet that is recommended by your health care provider. If you vomit, drink water, juice, or soup when you can drink without vomiting. Make sure you have little or no nausea before eating solid foods. General instructions Take hyoq-fbf-fhwevvf and prescription medicines only as told by your health care provider. If you have sleep apnea, surgery and certain medicines can increase your risk for breathing problems. Follow instructions from your health care provider about wearing your sleep device: ? Anytime you are sleeping, including during daytime naps. ? While taking prescription pain medicines, sleeping medicines, or medicines that make you drowsy. If you smoke, do not smoke without supervision. Keep all follow-up visits as told by your health care provider. This is important. Contact a health care provider if: You keep feeling nauseous or you keep vomiting. You feel light-headed. You develop a rash. You have a fever. Get help right away if: You have trouble breathing. Summary For several hours after your procedure, you may feel sleepy and have poor judgment. Have a responsible adult stay with you for at least 24 hours or until you are awake and alert. This information is not intended to replace advice given to you by your health care provider. Make sure you discuss any questions you have with your health care provider. Document Released: 01/31/2017 Document Revised: 01/09/2019 Document Reviewed: 01/31/2017 [employer] Patient Education 2020 [employer] Colonoscopy, Adult, Care After This sheet gives you information about how to care for yourself after your procedure. Your doctor may also give you more specific instructions. If you have problems or questions, call your doctor. What can I expect after the procedure? After the procedure, it is common to have: A small amount of blood in your poop for 24 hours. Some gas. Mild cramping or bloating in your belly. Follow these instructions at home: General instructions For the first 24 hours after the procedure: ? Do not drive or use machinery. ? Do not sign important documents. ? Do not drink alcohol. ? Do your daily activities more slowly than normal. ? Eat foods that are soft and easy to digest. Take wznt-gms-bonufrv or prescription medicines only as told by your doctor. To help cramping and bloating: Try walking around. Put heat on your belly (abdomen) as told by your doctor. Use a heat source that your doctor recommends, such as a moist heat pack or a heating pad. ? Put a towel between your skin and the heat source. ? Leave the heat on for 20 30 minutes. ? Remove the heat if your skin turns bright red. This is especially important if you cannot feel pain, heat, or cold. You can get burned. Eating and drinking Drink enough fluid to keep your pee (urine) clear or pale yellow. Return to your normal diet as told by your doctor. Avoid heavy or fried foods that are hard to digest. Avoid drinking alcohol for as long as told by your doctor. Contact a doctor if: You have blood in your poop (stool) 2 3 days after the procedure. Get help right away if: You have more than a small amount of blood in your poop. You see large clumps of tissue (blood clots) in your poop. Your belly is swollen. You feel sick to your stomach (nauseous). You throw up (vomit). You have a fever. You have belly pain that gets worse, and medicine does not help your pain. Summary After the procedure, it is common to have a small amount of blood in your poop. You may also have mild cramping and bloating in your belly. For the first 24 hours after the procedure, do not drive or use machinery, do not sign important documents, and do not drink alcohol. Get help right away if you have a lot of blood in your poop, feel sick to your stomach, have a fever, or have more belly pain. This information is not intended to replace advice given to you by your health care provider. Make sure you discuss any questions you have with your health care provider. Document Released: 11/13/2011 Document Revised: 08/11/2018 Document Reviewed: 07/05/2017 [employer] Patient Education 2020 [employer] Additional Information VACCINATE! IT SAVES LIVES! Members of the community who have not yet received the COVID-19 vaccine and would like to receive it can visit one of [facility] vaccine clinics. There are many vaccine clinic locations within the [facility]. For locations and available times, please visit [email or web address] It is important to note that some COVID mobile vaccine clinics are held outdoors and may be canceled in rainy or stormy conditions. To learn more about pediatric vaccinations (ages 5-11), we invite you to visit the [facility] webpage. [email or web address] [email or web address] learn more about the COVID-19 vaccine, we invite you to visit the [facility] website for a list of frequently asked questions. [email or web address].pdf [facility] Patient Portal Access Instructions: Stay connected with your healthcare team and access your personal medical information anytime with the [facility] Patient Portal.If you would like a full copy of your medical records, please contact the [facility] Medical Records Department, Wednesday through Wednesday between 8a.m. and 4:30p.m. Please follow the directions below to access the portal: 1.Access the email account you provided upon registration to the [facility].2.Look for an invitation email from [facility].3.Open the email and access the invitation link: Accept Invitation to [facility]4.Fill in the required morris to create your account. Sign into [email or web address] with your username and password that you created in the above steps to stay up to date. You can then view a summary of results, a summary of your visits, and the ability to download your summaries to your computer or send the information securely to a physician. Remember that your healthcare information is confidential, so carefully consider who you will allow to register on the [facility] Patient Portal for access to your information. You can also access the [facility] Patient Portal on the [employer] tayler. Simply click on Health Records under [employer] and then click on the [employer] logo. HOW TO SAFELY DISPOSE OF PRESCRIPTION MEDICATIONS Please use one of the following methods to safely dispose of your unused medications. 1.Use a drug disposal kit: the drug disposal pouch allows you to safely discard your old and unuseddrugs. Ask your nurse to give you one when you are discharged.2.Visit a local take-back location: Many local pharmacies and police departments have programs that collect old and unwanted prescriptiondrugs. Call your local pharmacy or go to http://bit.Genomas/5M4Yd4z to find one close to you.3.Make use of household items: Use cat litter or old coffee grounds to dispose medications if other options arenot available. Mix your drugs with these household products, seal them in an airtight container andthrow it into the garbage. Call [facility]: [phone] to be sure your drugs can be disposed of in this way. Some medicines may require a different approach.4.Never flush your medications down the toilet. IF YOU HAVE BEEN PRESCRIBED AN OPIOID FOR PAIN If you have been prescribed an opioid (such as hydrocodone, oxycodone or morphine), it is critical to understand the possible side effects and risks of opioid pain medications. Even when taken as directed, opioids can have several side effects including: Tolerance, meaning you might need to take more of a medication for the same pain relief. Nausea, vomiting and/or constipation. Sleepiness, dizziness, dry mouth, confusion, depression or itching. Physical dependence, meaning you have withdrawal symptoms when a medication is stopped, can develop within a few days. KNOW YOUR RESPONSIBILITIES It is important to know exactly how much and how often to take the opioid pain medications you are prescribed. Never take opioids in higher amounts or more often than prescribed. Do not combine opioids with alcohol or other drugs that cause drowsiness, such as benzodiazepines, also known as benzos, including diazepam and alprazolam, muscle relaxants or sleep aids. Never sell or share prescription opioids. This is illegal. Store opioids in a secure place and out of reach of others (including children, family, friends and visitors). The last page of this document has been signed and retained as a CHART COPY. Signatures Patient Education Materials Monitored Anesthesia Care, Care After Colonoscopy, Adult, Care After, Uaxl-bn-Mhbh Medication Leaflets My discharge plan and instructions have been reviewed and explained to me and ITRUPTI HAROLD E understand my current condition and have read and understand these discharge instructions. I have received a written copy of the plan/instructions. If I have questions, I am aware that I should contactmy doctor. 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 Mental status: at preoperative baseline. Respiratory function: lungs are clear to auscultation. Respiratory support: none. CV function: Normal rate. Cardiovascular support: none. Pain. Nausea status: denies nausea. Postoperative hydration status: within normal limits. Digitally Signed by CHARLOTTE ESQUIVEL on 05/18/2022 08:38 AM [facility]07-25-2022 Note [facility] ADMISSION HISTORY AND PHYSICIAL CHIEF COMPLAINT: HISTORY OF PRESENT ILLNESS: REVIEW OF SYSTEMS: ACTIVE PROBLEMS: (23) Anxiety (75222490) Anxiety depression (953733100) Arthritis ([id number]) BPH (benign prostatic hyperplasia) (212071090) Chronic low back pain (904844818) Diabetes ([id number]) Dysphagia (07289778) Fatigue (164768500) Fatty liver (0506043977) GERD - Gastro-esophageal reflux disease (4121619206) Heavy smoker (125123972) Hypertriglyceridemia (071595904) Kidney stones ([id number]) Need for influenza vaccination (664900304) Need for vaccination against Streptococcus pneumoniae (1200422822) Screening for colon cancer (761448149) Shortness of breath (310424990) Sleep apnea (816637113) Statin intolerance (4513630587) TIA (transient ischemic attack) (395330474) Tobacco use (0206682065) Trouble in sleeping (443648946) Vitamin D deficiency (94937022) MEDICATIONS: Active Inpt Meds: None Active PRN Meds: None One Time Meds: None Active IV Meds: Lactated Ringers Infusion 1,000 mL (LR 1,000 mL) Start: 05/18/22 7:12:00 EDT, Rate: 50 mL/hr, 05/18/22 7:12:00 EDT ALLERGIES: (6) amoxicillin CeleBREX Chantix Hannibal Vicodin Wellbutrin FAMILY HISTORY: SOCIAL HISTORY: PHYSICAL EXAM: VITALS: FqzmdmIojwBJJvqezDCCfU4XPI3IbsyNq(kg) 05/18 07:1336.5126/5733914--PA04/25 84.1 05/18 84.1 24 Hr Tmax: 36.5 at 05/18 07:13 36 Hr Tmax: 36.5 at 05/18 07:13 Vital Signs are the last 5 in the past 48 hours. Weights display the last 5 within 7 days. Initial Wt: 05/18 84.1 kg 185 lb Current Wt: 05/18 84.1 kg 185 lb GENERAL: HEENT: CARDIOVASCULAR: RESPIRATORY: ABDOMEN: EXREMETIES: NEUROLOGICAL: PSYCHIATRIC: LABS: 36hr Labs 05/18 0713 Blood Glucose, Yxziuehsi222G Blood Glucose, Clqlbdcrw267F DIAGNOSTICS: IMPRESSION: PLAN: History and Physical Update I have examined the patient; reviewed the H&P and there are no changes to the H&P unless noted below. Digitally Signed by YANI DOUGHERTY MD on 05/18/2022 08:16 AM [facility]07-25-2022 Anesthesiology Consult note Patient: AGAPITO MESSER Age: 71 years Sex: Male : 1950 Associated Diagnoses: None Author: CHARLOTTE ESQUIVEL Preoperative Information Time of last food or liquid consumption: 05/18/2022 00:00:00 Anesthesia history Patient's history: negative. Family's history: negative. Health Status Allergies: Allergic Reactions (Selected) Severity Not Documented Amoxicillin- Nausea, sob - shortness of breath and headache. CeleBREX- Abdominal pain. Chantix- No reactions were documented. Hannibal- Hives. Vicodin- No reactions were documented. Wellbutrin- Nauseated, fatigue and short of breath on exertion., Allergies (6) ActiveReaction amoxicillinNausea CeleBREXAbdominal pain ChantixNone Documented NorcoHives VicodinNone Documented WellbutrinFatigue Current medications: (Selected) Inpatient Medications Ordered LR 1,000 mL: 50 mL/hr, Intravenous Prescriptions Prescribed busPIRone 10 mg oral tablet: 10 mg, 1 tab(s), Oral, TID, 90 tab(s), 5 Refill(s) losartan 25 mg oral tablet: 25 mg, 1 tab(s), Oral, qDay, 90 tab(s), 1 Refill(s) Documented Medications Documented Colace: 100 mg, Oral, BID, 0 Refill(s) Fish Oil 1000 mg oral capsule: 1,000 mg, 1 cap(s), Oral, qDay, 0 Refill(s) Mobic 15 mg oral tablet: 15 mg, 1 tab(s), Oral, qDayM, 90 tab(s), 0 Refill(s) Neurontin 300 mg oral capsule: 300 mg, 1 cap(s), Oral, BID, 0 Refill(s) Vitamin D3: 2,000 unit(s), 1 tab(s), Oral, qDay, 60 tab(s), 0 Refill(s) alfuzosin 10 mg oral tablet, extended release: 10 mg, 1 tab(s), Oral, qDay, 30 tab(s), 0 Refill(s) aspirin 81 mg oral tablet (chewable): 81 mg, 1 tab(s), Oral, qHS, 0 Refill(s) empagliflozin 10 mg oral tablet: 10 mg, 1 tab(s), Oral, qAM, 0 Refill(s) glimepiride 4 mg oral tablet: 4 mg, 1 tab(s), Oral, qDay, 30 tab(s) morphine 15 mg/8 to 12 hr oral tablet, extended release: take 1 tablet by mouth three times a day if needed for pain, Medications (1) Active Scheduled: (0) Continuous: (1) Lactated Ringers Infusion 1,000 mL 1,000 mL, Intravenous, 50 mL/hr PRN: (0) Problem list: Medical Anxiety / SNOMED CT 23279272 / Confirmed Anxiety depression / SNOMED CT 794163997 / Confirmed Arthritis / SNOMED CT [id number] / Confirmed BPH (benign prostatic hyperplasia) / SNOMED CT 318269324 / Confirmed Chronic low back pain / SNOMED CT 700227591 / Confirmed Diabetes / SNOMED CT [id number] / Confirmed Dysphagia / SNOMED CT 85868581 / Confirmed Shortness of breath / SNOMED CT 422181701 / Confirmed Fatigue / SNOMED CT 995593935 / Confirmed Fatty liver / SNOMED CT 3288966027 / Confirmed GERD - Gastro-esophageal reflux disease / SNOMED CT 9289424295 / Confirmed Hypertriglyceridemia / SNOMED CT 325470362 / Confirmed Trouble in sleeping / SNOMED CT 882221970 / Confirmed Kidney stones / SNOMED CT [id number] / Confirmed Need for influenza vaccination / SNOMED CT 940091382 / Confirmed Screening for colon cancer / SNOMED CT 893268900 / Confirmed Need for vaccination against Streptococcus pneumoniae / SNOMED CT 0845898992 / Confirmed Heavy smoker / SNOMED CT 774593337 / Confirmed Statin intolerance / SNOMED CT 3548484000 / Confirmed Tobacco use / SNOMED CT 6824696470 / Confirmed TIA (transient ischemic attack) / SNOMED CT 393321362 / Confirmed Vitamin D deficiency / SNOMED CT 02471690 / Confirmed, Active Problems (23) Anxiety Anxiety depression Arthritis BPH (benign prostatic hyperplasia) Chronic low back pain Diabetes Dysphagia Fatigue Fatty liver GERD - Gastro-esophageal reflux disease Heavy smoker Hypertriglyceridemia Kidney stones Need for influenza vaccination Need for vaccination against Streptococcus pneumoniae Screening for colon cancer Shortness of breath Sleep apnea Statin intolerance TIA (transient ischemic attack) Tobacco use Trouble in sleeping Vitamin D deficiency Histories Past Medical History: Active Diabetes ([id number]) Arthritis ([id number]) BPH (benign prostatic hyperplasia) (127581529) TIA (transient ischemic attack) (928371463) Chronic low back pain (492986040), HTN Family History: Asthma Sister Daughter Son Mother Heart disease Mother Son Substance abuse Son Alcohol abuse Father Son Mental illness Mother Depression Mother Sister Alzheimer's disease Mother Grandparent Osteoarthritis Mother Procedure history: Esophagogastroduodenoscopy (155724410) on 11/05/2017 at 67 Years. Rotator cuff - right (43951479). Comments: 05/09/2019 18:35 EDT Hellen Baum LPN right Oral surgery (0852596600). Amputation (336511151). Comments: 05/09/2019 18:36 EDT Hellen Baum LPN right middle finger, reattached and pinned Cystoscopy (12846292). Social History Social & Psychosocial Habits Alcohol 09/12/2017Risk Assessment: Denies Alcohol Use 05/09/2019 Use: Never Substance Abuse 09/12/2017Risk Assessment: Denies Substance Abuse 05/09/2019 Use: Never Tobacco 05/29/2020 Tobacco Use: 10 or more cigarettes (1/, cut back from 2ppd to 1ppd Exposure to Tobacco Smoke Lives with someone who sm Home/Environment 05/09/2019 Living situation: Home/Independent Nutrition/Health 05/09/2019 Caffeine intake amount: 2 daily . Physical Examination No qualifying data available Measurements from flowsheet : Measurements 05/18/2022 7:15 EDT Height 182.9 cm Admission Weight 84.1 kg Weight Method Stated [place] Body Weight 77.62 kg General: Alert and oriented. Airway: Normal temporomandibular joint mobility. Mallampati classification: II (soft palate, fauces, uvula visible). Head: Normocephalic. Dentition Evaluation: Intact. Neck: Supple. Respiratory: Lungs are clear to auscultation. Cardiovascular: Normal rate. Heart Sounds: Normal. Gastrointestinal: Soft. Musculoskeletal Normal range of motion. Integumentary: Intact. Neurologic: Alert. Review / Management Results review: No qualifying data available , Lab results 05/18/2022 7:15 EDT Designated Person #1 We May Share PHI Designated Person #1 We May Share [facility] Designated Person #1 Relationship Spouse Privacy Restrictions Requested None Height 182.9 cm Admission Weight 84.1 kg Weight Method Stated [place] Body Weight 77.62 kg Status N/A Sensory Deficits None Sleep Apnea Age Yes Sleep Apnea Gender Yes Diagnosed With Sleep Apnea Yes Advanced Directives No - refuses information Infectious Disease Symptoms Nausea Infectious Disease Recent Exposure No Alcohol and Drug Use No Employee of Institutional Living No Health Care Employee No History of Exposure to TB No History of Positive Chest X-Ray for TB No History of Positive TB Skin Test No Homeless No Known Immunosuppression No Recent Immigrant No Resident of Institutional Living No Bloody Sputum No Fatigue No Fever No Loss of Appetite No Night Sweats No Persistent Cough > 3 Weeks No Weight Loss No Safety Brochure Information Reviewed Unable to complete [facility] Video Viewed No Barriers to Learning None evident Teaching Method Explanation Teaching Evaluation No further teaching needed Preferred Written Language Monegasque Preferred Spoken Language Monegasque Information Given by Patient Patient's Current Physicians Patient's Current Physicians Discharge To, Anticipated Home with family care Prev Test Positive/Diagnosis w/COVID-19 Yes Previous COVID-19 Positive Date 2020 Current Quarantine/Isolated any Illness No Any Contact with Sick Animals/Birds No Traveled Anywhere in Last 30 Days No Lost Weight Unintentionally Recently No Eat Poorly Due to Decreased Appetite No Total MST Score 0 N/A Personal Devices, Patient Valuables None Anesthesia/Transfusions Prior anesthesia Admission Note-Nursing Same Day Patient History 05/18/2022 7:13 EDT Belongings At Bedside Shirt, Shoes, Shorts, Undergarments . Assessment and Plan Citizen Of [place] Society of Anesthesiologists (ASA) physical status classification: Class III. Anesthetic Preoperative Plan Premedication: None. Anesthetic technique: MAC. Induction: intravenously. Postoperative pain management: Per surgeon. Risks discussed: nausea, vomiting, headache, sore throat, dental injury, hypotension, allergic reaction, serious complications. Informed consent: signed by patient. Digitally Signed by CHARLOTTE ESQUIVEL on 05/18/2022 07:38 AM Digitally Signed by CHARLOTTE ESQUIVEL on 05/18/2022 07:39 AM [facility]10-27-2021 Hospital Discharge instructions Patient Education 08/20/2021 14:17:45 CONTUSION, Lower Extremity Contusion:Lower Extremity You have a CONTUSION of your LOWER extremity (leg, knee, ankle, foot, or toes). This causes local pain, swelling and sometimes bruising. There are no broken bones. This injury may take from a few days to a few weeks to heal. Home Care: 1) Keep your leg elevated to reduce pain and swelling. When sleeping, place a pillow under the injured leg. When sitting, support the injured leg so it is level with your waist. This is very important during the first 48 hours. 2) If CRUTCHES have been advised, do not bear full weight on the injured leg until you can do so without pain. You may return to sports when you are able to hop and run on the injured leg without pain. 3) Apply an ice pack (ice cubes in a plastic bag, wrapped in a towel) over the injured area for 20 minutes every 1-2 hours the first day for pain relief. Continue this 3-4 times a day until the pain and swelling goes away. 4) You may use acetaminophen (Tylenol) or ibuprofen (Motrin, Advil) to control pain, unless anotherpain medicine was prescribed. [ NOTE : If you have chronic liver or kidney disease or ever had a stomach ulcer or GI bleeding, talk with your doctor before using these medicines.] Follow Up with your doctor or this facility if you are not starting to improve within the next THREE days. [NOTE: If X-rays were taken, they will be reviewed by a radiologist. You will be notified of any new findings that may affect your care.] Get Prompt Medical Attention if any of the following occur: -- Pain or swelling increases -- Toes become cold, blue, numb or tingly -- Redness, warmth or drainage from the skin [id number] [employer]. [address] [place] [address], [place] [address]. All rights reserved. This information is not intended as a substitute for professional medical care. Always follow yourhealthcare professional's instructions. Follow Up Care 08/20/2021 13:23:54 With:ISIAH LOBO DO Address: When:2-4 days [facility] Evaluation + Plan note Future Appointments Appointment Date:11/04/2021 09:00:00 AM Scheduled Provider:ISIAH LOBO DO Location:[facility] Appointment Type: OV Follow Up Future Scheduled Tests Radiology* XR Chest 2 Views (PA & Lateral) 01/20/21 * XR Chest 2 Views (PA & Lateral) 06/04/21 [facility] Evaluation + Plan note Future Appointments Appointment Date:11/13/2022 04:00:00 PM Scheduled Provider:ISIAH LOBO DO Location:[facility] Appointment Type: OV [facility] Evaluation + Plan note Future Appointments Appointment Date:02/10/2023 10:00:00 AM Scheduled Provider:ISIAH LOBO DO Location:[facility] Appointment Type: OV [facility] Evaluation noteNo assessment information available [facility] Work Phone: Evngevjlhb note* Diagnosis Acute bilateral low back pain without sciatica- Primary Glucose found in urine on examination Glycosuria documented in this encounter [facility] note* Diagnosis Bronchitis- Primary Bronchitis, not specified as acute or chronic Acute upper respiratory infection, unspecified documented in this encounter [facility] note* Diagnosis Dyspnea, unspecified type- Primary Dyspnea, unspecified type [facility] Diagnosis Dyspnea, unspecified type [facility]* Diagnosis Burning with urination- Primary Dysuria documented in this encounter [facility] note* Diagnosis Bronchitis Bronchitis, not specified as acute or chronic documented in this encounter [facility] note* Diagnosis Viral URI- Primary Acute upper respiratory infections of unspecified site Acute cough Chest congestion Other symptoms involving respiratory system and chest Chest tightness Other chest pain Headaches [facility] Narrative No data available for this section [facility] Hospital Discharge instructions No data available for this section [facility] Note* DANNY BUSCH MD: SIGN, VERIFY Event Display: VL Aorta For Medicare Screen (Outpt) AOH [facility] Progress note No data available for this section [facility] Reason for referral (narrative)No reason for referral [facility] Phone: Chief Complaint and Reason for Visit Chief Complaint ham caught in throat Chief Complaint ham caught in throat flank pain Calculus of ureter Chief Complaint flank pain Calculus of ureter SHORTNESS OF BREATH Chief Complaint Admit Date RT FOOT DROP ACUTE September 26, 2024 7 :00am Dysphagia December 18, 2024 10:33am LUMBAR SPINE December 25, 2024 12:3 2pm Rm 4 December 25, 2024 1:13 pm Dorsalgia, unspecified January 02, 2025 1:18pm Reason for Visit Admit Date Delayed gastric emptying December 18, 2024 10:33am Dysphagia December 18, 2024 10:33am Esophageal stricture December 18, 2024 10:33am Reflux esophagitis December 18, 2024 10:33am Spondylolisthesis, lumbar region December 252024 12:32pm Spondylosis of lumbar region without myelopathy or radiculopathy December 25, 2024 12:32pm Chief Complaint Admit Date RT FOOT DROP ACUTE September 26, 2024 7 :00am Dysphagia December 18, 2024 10:33am LUMBAR SPINE December 25, 2024 12:3 2pm Rm 4 December 25, 2024 1:13 pm Dorsalgia, unspecified January 02, 2025 1:18pm PROLONGED FULLNESS, DYSPHAGIA, REFLUX [facility] 2024 9:56am Chief Complaint Admit Date RT FOOT DROP ACUTE September 26, 2024 7 :00am Dysphagia December 18, 2024 10:33am LUMBAR SPINE December 25, 2024 12:3 2pm Rm 4 December 25, 2024 1:13 pm Dorsalgia, unspecified January 02, 2025 1:18pm PROLONGED FULLNESS, DYSPHAGIA, REFLUX [facility] 2024 9:56am DIFFICULTY SWALLOWING, FREQUENT COUGH [facility] 2024 12:20pm Chief Complaint Admit Date Dysphagia December 18, 2024 10:33am LUMBAR SPINE December 25, 2024 12:3 2pm Rm 4 December 25, 2024 1:13 pm Dorsalgia, unspecified January 02, 2025 1:18pm PROLONGED FULLNESS, DYSPHAGIA, REFLUX [facility] 2024 9:56am DIFFICULTY SWALLOWING, FREQUENT COUGH [facility] 2024 12:20pm PREOP February 06, 2025 11: 56am Family History No Family History Records Found Relationship Condition Age at Onset Recorded Date/T yuniel Unknown Family History?- Unknown September 042019 3:54pm Family History?Dementia, - Unknown N ovember 2019 3:54pm Relationship Condition Age at Onset Recorded Date/T yuniel Unknown Family History?- Unknown September 042019 2:54pm Family History?Dementia, - Unknown N ovember 2019 2:54pm Advance Directives No Advanced Directives Records Found Advance Directive Response Recorded Date/ Time Living Will No September 04, 2 020 12:53pm Power of Plastic Roller No September 04, 2020 12:53pm Advance Directive Response Recorded Date/ Time Living Will No September 15, 2 022 8:51pm Power of Plastic Roller No September 15, 2022 8:51pm Advance Directive Response Recorded Date/ Time Living Will No December 20, 2 023 11:00am Power of Plastic Roller No December 20, 2022 11:00am Health Concerns Infection Onset Date Last Indicated Resolved Time COVID-19 Rule-Out 12/16/2022 12/16/2022 Summary Purpose Reason for Referral Specialty Diagnoses / Procedures Referred By Contac t Referred To Contact Radiology Diagnoses Dyspnea, unspecified type Procedures XR CHEST 2 VIEWS Ramu Gay, 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 [address] [place] [address] [facility] [address] [place] [address] [place] [address] Referral ID Status Reason Start Date Expiration Date Visits Re quested Visits Authorized [id number] Closed 06/15/2023 06/14/2024 1 1 Additional Source Comments Care Team (unrecognized sect ion and content) Care Team Personnel Name: ISIAH LOBO DO Position: P4 Physician - Primary Care Med Service: Active Provider Member Role: Primary Care Physician Address: Address: [address] [place], [place] [address]- Name: REY WALLACE MD Position: P3 Physician - Urologist Med Service: Admitting Member Role: Urologist Address: Address: [address] [place] [address] [address] [place] [id number]- Name: DOMENIC KHAN APRN-TOOL DESIGN ENGINEER Member Role: Geography Professor Address: Address: [address] [place], [place] [id number]- [place] Name: MD JESSEE BRO Member Role: Pain Management Address: Address: [facility] [address] [place] [address] [address] [place] [id number]- Care Team Related Persons Name: ROBYN MESSER Address: Home [address] [place] [phone] [place] Name: ESTHER MESSER Care Team Personnel Name: YANI DOUGHERTY MD Position: Physician Member Role: Mounting Machine Operator Address: Address: [facility] [address] [place] [address]- [place] Name: ISIAH LOBO DO Position: P4 Physician - Primary Care Member Role: Primary Care Physician Address: Address: [address] [place] [address]- Name: REY WALLACE MD Position: P3 Physician - Urologist Member Role: Urologist Address: Address: [address] [place] [address] [address] [place] [address]- Name: DOMENIC KHAN APRN-TOOL DESIGN ENGINEER Member Role: Geography Professor Address: Address: [address] [place], [place] [phone]- [place] Name: MD JESSEE BRO Member Role: Pain Management Address: Address: [facility] [address] [facility] [address] [place] [address]- [place] Care Team Related Persons Name: ROBYN MESSER Address: Home [address] [place], [place] [phone] [place] Name: ESTHER MESSER Care Team Personnel Name: YANI DOUGHERTY MD Position: Physician Member Role: Mounting Machine Operator Address: Address: [address] [facility] [address] [place] [address]- [place] Name: ISIAH LOBO DO Position: P4 Physician - Primary Care Member Role: Primary Care Physician Address: Address: [address] [place] [address]- [place] Name: REY WALLACE MD Position: P3 Physician - Urologist Member Role: Urologist Address: Address: [address] [place] [address] [address] [place] [address]- [place] Name: DOMENIC KHAN APRN-TOOL DESIGN ENGINEER Member Role: Geography Professor Address: Address: [address] [place], [place] [phone]- [place] Name: MD JESSEE BRO Member Role: Pain Management Address: Address: [facility] [address] [place] [address] [address] [place] [address]- [place] Care Team Related Persons Name: ROBYN MESSER Address: Home [address] [place], [place] [phone] [place] Name: ESTHER MESSER Care Team Personnel Name: YANI DOUGHERTY MD Position: Physician Member Role: Mounting Machine Operator Address: Address: [address] [facility] [address] [place] [address]- [place] Name: ISIAH LOBO DO Position: P4 Physician - Primary Care Member Role: Primary Care Physician Address: Address: [address] [place] [address]- [place] Name: REY WALLACE MD Position: P3 Physician - Urologist Member Role: Urologist Address: Address: [address] [place] [address] [address] [place] [address]- [place] Name: DOMENIC KHAN APRN-TOOL DESIGN ENGINEER Member Role: Geography Professor Address: Address: [address] [place] [address]- [place] Name: MD JESSEE BRO Member Role: Pain Management Address: Address: [facility] [address] [place] [address]- [place] Care Team Related Persons Name: ROBYN MESSER Address: Home [address] [place], [place] [phone] [place] Name: ESTHER MESSER Care Team Personnel Name: YANI DOUGHERTY MD Position: Physician Member Role: Mounting Machine Operator Address: Address: [address] [place] [address] [place] [address]- Name: ISIAH LOBO DO Position: P4 Physician - Primary Care Member Role: Primary Care Physician Address: Address: [address] [facility] [place] [address]- Name: REY WALLACE MD Position: P3 Physician - Urologist Member Role: Urologist Address: Address: [address] [facility] [address] [place] [address]- Name: DOMENIC KHAN APRN-TOOL DESIGN ENGINEER Member Role: Geography Professor Address: Address: [address] [place] [address]- Name: MD JESSEE BRO Member Role: Pain Management Address: Address: [facility] [address] [place], [place] [address] [place] [address] [place] [address]- Care Team Related Persons Name: ROBYN MESSER Address: Home [address] [place], [place] [phone] Name: ESTHER MESSER Goals (unrecognized section and content) Goals may be documented in a n alternate section Source Comments (unrecognize d section and content) In the event this informatio n is protected by the Federal Confidentiality of Alcohol and Drug Abuse Patient Records regulations: The Federal rules restrict any use of the information to criminally investigate or prosecute any alcohol or drug abuse patient.[facility] the event this information is protected by the Federal Confidentiality of Alcohol and Drug Abuse Patient Records regulations: The Federal rules restrict any use of the information to criminally investigate or prosecute any alcohol or drug abuse patient.[facility] the event this information is protected by the Federal Confidentiality of Alcohol and Drug Abuse Patient Records regulations: The Federal rules restrict any use of the information to criminally investigate or prosecute any alcohol or drug abuse patient.[facility] the event this information is protected by the Federal Confidentiality of Alcohol and Drug Abuse Patient Records regulations: The Federal rules restrict any use of the information to criminally investigate or prosecute any alcohol or drug abuse patient.[facility] the event this information is protected by the Federal Confidentiality of Alcohol and Drug Abuse Patient Records regulations: The Federal rules restrict any use of the information to criminally investigate or prosecute any alcohol or drug abuse patient.[facility] the event this information is protected by the Federal Confidentiality of Alcohol and Drug Abuse Patient Records regulations: The Federal rules restrict any use of the information to criminally investigate or prosecute any alcohol or drug abuse patient.[facility] the event this information is protected by the Federal Confidentiality of Alcohol and Drug Abuse Patient Records regulations: The Federal rules restrict any use of the information to criminally investigate or prosecute any alcohol or drug abuse patient.[facility] Reason for Visit (unrecogniz ed section and content) Reason Comments UTI Low back pain, chill s, nausea x3 days Reason Comments Sinus Problem sinus pressure, drai nage, cough, ear pain and sore throat x 5 days Reason Comments Results Specialty Diagnoses / Procedures Referred By Vaughn valle Referred To Contact Radiology Diagnoses Dyspnea, unspecified type Procedures XR CHEST 2 VIEWS Ramu Gay, 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 [address] [place] [address] [facility] [address] [place] [address] [place] [address] Referral ID Status Reason Start Date Expiration Date Visits Re quested Visits Authorized [id number] Closed 06/15/2023 06/14/2024 1 1 Reason Comments Urinary Problem Burning with urinati on x 1 week Reason Comments Chest Congestion cough, nasal drainag e x 2 days Care Teams (unrecognized sec tion and content) Pedicab Driver Relationship Specialty Start Date End Date Isiah Lobo, [address] [place] [address] PCP - General Family Medicine 09/18/22 Pedicab Driver Relationship Specialty Start Date End Date Isiah Lobo, [address] [place] [address] PCP - General Family Medicine 09/18/22 Pedicab Driver Relationship Specialty Start Date End Date Isiah Lobo DO [address] [place] [address] PCP General Family Medicine 09/18/22 Team Status: Active Member Role Status Dates Isiah Hill DO Family Provider Active Dr. Isiah Lobo DO Primary Care Provider Active Team Status: Inactive Member Role Status Dates Dr. Isiah Lobo DO Primary Care Provider Active Dr. Kevin Griffin DO Attending Provider, Emergency Pro vider Active Team Status: Inactive Member Role Status Dates Dr. Isiah Lobo DO Primary Care Provider Active Dr. Rey Wallace MD Attending Provider, Referr ing Provider Active Team Status: Inactive Member Role Status Dates Dr. Isiah Lobo DO Primary Care Provider Active Dr. Stiven Flores MD Emergency Provider Active Pedicab Driver Relationship Specialty Start Date End Date Isiah Lobo DO [address] [place] [address] PCP [facility] Medicine 09/18/22 04/09/24 Team Status: Active Member Role Status Dates [facility] Primary Care Provider Active Team Status: Inactive Member Role Status Dates [facility] Primary Care Provider Active Start: September 26, 2024 End: September 26, 2024 NP. Larisa Leal Attending Provider Active Star t: September 26, 2024 End: September 26, 2024 NP. Larisa Leal Referring Provider Active Star t: September 26, 2024 End: September 26, 2024 Team Status: Inactive Member Role Status Dates [facility] Primary Care Provider Active Start: December 18, 2024 End: December 18, 2024 [facility] Referring Provider Active Start: Samanta johnston 2024 End: December 18, 2024 MARIZA Martinez Attending Provider Active S tart: December 18, 2024 End: December 18, 2024 Team Status: Inactive Member Role Status Dates [facility] Primary Care Provider Active Start: December 25, 2024 End: December 25, 2024 [facility] Referring Provider Active Start: [facility] 2024 End: December 25, 2024 Dr. Marcos Archer MD Attending Provider Active Start: December 25, 2024 End: December 25, 2024 Team Status: Inactive Member Role Status Dates [facility] Primary Care Provider Active Start: December 25, 2024 End: December 25, 2024 Dr. Vickey Espinoza MD Attending Provider Active S tart: December 25, 2024 End: December 25, 2024 Team Status: Active Member Role Status Dates [facility] Primary Care Provider Active Start: January 01, 2025 Shakira Hewitt Attending Provider Active Start : January 01, 2025 Shakira Hewitt Referring Provider Active Start : January 01, 2025 Team Status: Inactive Member Role Status Dates [facility] Primary Care Provider Active Start: January 02, 2025 End: January 02, 2025 Dr. Rey Wallace MD Attending Provider Active Start: January 02, 2025 End: January 02, 2025 Dr. Rey Wallace MD Referring Provider Active Start: January 02, 2025 End: January 02, 2025 Team Status: Inactive Member Role Status Dates [facility] Primary Care Provider Active Start: January 01, 2025 End: January 01, 2025 Shakira Hewitt Attending Provider Active Start : January 01, 2025 End: January 01, 2025 Shakira Hewitt Referring Provider Active Start : January 01, 2025 End: January 01, 2025 Team Status: Inactive Member Role Status Dates [facility] Primary Care Provider Active Start: January 11, 2025 End: January 11, 2025 MARIZA Martinez Attending Provider Active S tart: January 11, 2025 End: January 11, 2025 Luz Bacon NP-Ochoa Referring Provider Active S tart: January 11, 2025 End: January 11, 2025 Team Status: Inactive Member Role Status Dates [facility] Primary Care Provider Active Start: January 19, 2025 End: January 19, 2025 MARIZA Martinez Attending Provider Active S tart: January 19, 2025 End: January 19, 2025 Luz Bacon NP-Ochoa Referring Provider Active S tart: January 19, 2025 End: January 19, 2025 Team Status: Inactive Member Role Status Dates [facility] Primary Care Provider Active Start: February 06, 2025 End: February 06, 2025 RANDALL Sierra Attending Provider Active Start: February 06, 2025 End: February 06, 2025 RANDALL Lee Referring Provider Active Start : February 06, 2025 End: February 06, 2025 (unrecognized sect ion and content) No Status Records FoundNo Status Records FoundNo Status Records FoundNo Status Records FoundNo Status Records FoundNo Status Records Found INFORMATION SOURCE (unrecogn ized section and content) DATE CREATED AUTHOR 04/19/2023 [facility] DATE CREATED AUTHOR AUTHOR'S ORGANIZ ATION 05/31/2024 [facility] ([place]) DATE CREATED AUTHOR AUTHOR'S ORGANIZ ATION 11/16/2024 [facility] DATE CREATED AUTHOR AUTHOR'S ORGANIZ ATION 12/25/2024 [facility] DATE CREATED AUTHOR AUTHOR'S ORGANIZ ATION 03/11/2025 [facility] DATE CREATED AUTHOR AUTHOR'S ORGANIZ ATION 03/28/2025 [facility] FOR RECORDS PERTAINING TO PATIENTS WHO ARE OR HAVE BEEN ENROLLED IN A CHEMICAL DEPENDENCY/SUBSTANCEABUSE PROGRAM, SOME INFORMATION MAY BE OMITTED. This clinical summary was aggregated from multiple sources. Caution should be exercised in using it in the provision of clinical care. This summary normalizes information from multiple sources, and as a consequence, information in this document may materially change the coding, format and clinical context of patient data. In addition, data may be omitted in some cases. CLINICAL DECISIONS SHOULD BE BASED ON THE PRIMARY CLINICAL RECORDS. [employer] [facility]. provides no warranty or guarantee of the accuracy or completeness of information in this document.
--- NOTE | 2025-03-29 08:54 | ECHOCS_ITS ---
Reason For Study Reason For Study: ABNORMAL EKG Procedure This was a 2D Doppler, Color Flow transthoracic echocardiogram. The study was technically difficult. Due to suboptimal imaging windows,. Contrast injection was performed. Exam performed in department. Left Ventricle Normal LV size. The estimated ejection fraction is 60 %. No evidence for diastolic dysfunction. No regional wall motion abnormalities noted. Right Ventricle Normal RV size. Normal systolic function. Atria The left and right atria are normal. No doppler evidence for ASD. Mitral Valve There is no mitral valve stenosis. Trivial mitral valve insufficiency. Tricuspid Valve There is no tricuspid stenosis. Unable to estimate RV systolic pressure due to inadequate jet, pulmonary artery pressure probably normal. Aortic Valve Trisinus/trileaflet aortic valve. There is no aortic stenosis. No aortic valve insufficiency. Pulmonic Valve There is no pulmonic valvular stenosis. No pulmonic valve insufficiency. Great Vessels Normal sized aortic root. Pericardium/Pleural No pericardial effusion. Medication Diluted definity 3.0ml given slow IV push to enhance endocardial definition. MMode/2D Measurements & Calculations LVIDd: 4.4 cm IVSd: 1.00 cm Ao root diam: 3.3 cm LVIDs: 3.0 cm LVPWd: 1.1 cm RVDd: 2.5 cm FS: 32.4 % LAV(MOD-bp): 38.5 ml LVAd ap4: 26.7 cm2 LVAd ap2: 20.6 cm2 LAV(MOD-bp) Indexed: 18.2 ml/m2 LVLd ap4: 8.1 cm LVLd ap2: 7.0 cm LAV(MOD-sp2): 36.8 ml EDV(MOD-sp4): 75.3 ml EDV(MOD-sp2): 49.0 ml LAV(MOD-sp4): 31.3 ml EDV(sp4-el): 74.6 ml EDV(sp2-el): 50.9 ml LVAs ap4: 16.8 cm2 LVAs ap2: 11.8 cm2 LVLs ap4: 7.3 cm LVLs ap2: 5.9 cm ESV(MOD-sp4): 33.1 ml ESV(MOD-sp2): 19.5 ml ESV(sp4-el): 32.8 ml ESV(sp2-el): 20.1 ml EF(MOD-sp4): 56.0 % EF(MOD-sp2): 60.1 % EF(sp4-el): 56.1 % SV(MOD-sp4): 42.1 ml SV(MOD-sp2): 29.5 ml SV(sp4-el): 41.8 ml SI(MOD-sp4): 20.0 ml/m2 SI(MOD-sp2): 14.0 ml/m2 LA A4 area: 12.1 cm2 LA dimension(2D): 3.6 cm RA A4 area: 10.8 cm2 TAPSE: 2.3 cm Time Measurements MV dec time: 0.20 sec Doppler Measurements & Calculations MV E max hever: 78.1 cm/sec Lat Peak E' Hever: 8.7 cm/sec Med Peak E' Hever: 7.6 cm/sec MV A max hever: 91.3 cm/sec E/E' lat: 9.0 E/E' med: 10.2 MV E/A: 0.86 MV V2 max: 103.5 cm/sec MV P1/2t max hever: 89.9 cm/sec Ao V2 max: 102.9 cm/sec MV max P.3 mmHg MV P1/2t: 53.0 msec Ao max P.2 mmHg MV V2 mean: 65.4 cm/sec MV dec slope: 497.0 cm/sec2 Ao V2 mean: 73.3 cm/sec MV mean P.9 mmHg MVA(P1/2t): 4.2 cm2 Ao mean P.4 mmHg MV V2 VTI: 24.8 cm Ao V2 VTI: 24.2 cm AV (velocity ratio): 0.71 LV V1 max: 68.8 cm/sec PA V2 max: 85.5 cm/sec TR max hever: 248.9 cm/sec LV V1 max P.9 mmHg PA V2 mean: 59.6 cm/sec TR max P.8 mmHg LV V1 mean P.0 mmHg PA V2 VTI: 19.3 cm LV V1 mean: 47.7 cm/sec LV V1 VTI: 17.1 cm ECHO/Echo Complete W/ Contrast Interpretation Summary The estimated ejection fraction is 60 %. No evidence for diastolic dysfunction. Ordering Physician: Satinder Jung Referring Physician: Domenic Mcneill Performed By: Mari Huntley, ANASTASIA, RVT
--- NOTE | 2025-03-29 14:21 | STRESSREP_ITS ---
Stress Test Report Date: 03/29/2025 Procedure: Pharmacologic stress nuclear imaging study Indications: Abnormal EKG, preop evaluation Consent: Per the patient Procedure: The patient underwent pharmacologic (Regadenoson) evaluation with a peak heart rate of 103 beats per minute (70%predicted maximal heart rate) and a peak blood pressure of 132/78 mmHg. The baseline ECG demonstrated normal sinus rhythm. EKG during lexiscan infusion revealed no significant ischemic changes. EKG post infusion revealed no significant ischemic changes [There were no cardiac dysrhythmias pretest, during pharmacologic infusion, or recovery]. [There was no complaint of chest discomfort during pharmacologic infusion or recovery]. The examination was discontinued secondary to completion of protocol. Impression: 1. Lexiscan stress test test is negative for Lexiscan infusion induced EKG changes of ischemia. 2. Lexiscan stress test test is negative for Lexiscan infusion induced chest pain. 3. Results of the nuclear portion of the test is as below Myocardial perfusion imaging study: Technique: The patient was injected with 10.9 millicuries of technetium 99m Cardiolite and subsequently rest SPECT Cardiolite nuclear imaging was obtained in the horizontal long, vertical long, and short axis views. The patient underwent pharmacologic [Regadenoson 0.4mg] evaluation. Please see above for details. The patient was injected with 33.3 millicuries of technetium 99m Cardiolite and subsequently stress SPECT Cardiolite nuclear imaging was obtained in the horizontal long, vertical long, and short axis views. A gated Cardiolite study at peak stress was obtained. Interpretation: Rest and stress SPECT Cardiolite nuclear imaging status post realignment, normalization, and attenuation correction demonstrate no evidence of significant ischemia or infarction. Gated images reveal no significant regional wall motion abnormalities. The reported LVEF is 69%. Impression: 1. There is no evidence of significant ischemia or infarction. 2. Estimated ejection fraction is 69%. This note was generated with [employer] software. It may contain incorrect words, spelling, and punctuation that were not noted in checking the note before signing.
== END | disposition home or self-care (01) ==
LOC: CVS 06:15
PROVIDERS: Referring Provider Nurse Practitioner Family; Visit Provider Nurse Practitioner Family
DX: R94.31 Abnormal electrocardiogram [ECG] [EKG] (principal)
CPT/HCPCS: 78452; 93017; 93306; A9500; Q9957; A4216; C8929; J2785

== ENCOUNTER 2025-08-09 12:04 | Observation (INO) | payer MEDICARE, OTHER, SELFPAY ==
--- NOTE | 2025-07-19 09:11 | EKG12_ITS ---
Test Reason : PREOP Blood Pressure : */* mmHG Vent. Rate : 97 BPM Atrial Rate : 97 BPM P-R Int : 154 ms QRS Dur : 70 ms QT Int : 350 ms P-R-T Axes : 71 -4 34 degrees QTcB Int : 444 ms Normal sinus rhythm Possible Inferior infarct , age undetermined Abnormal ECG Confirmed by Raymon Bhakta ([id number]), science editor OLYA RODRÍGUEZ ([id number]) on 07/20/2025 5:53:06 AM Referred By: PRITI LIMA Confirmed By: Raymon Bhakta
--- NOTE | 2025-07-19 18:07 | PAT.ANE_ITS ---
Pre-Assessment Diagnosis/Proposed Procedure Planned Operative Procedure(s): (L) Total Knee Replacement Robotic Arm Radha Anesthesia History Anesthesia History - research/program director: Anesthesia History - research/program director Hx Hospitalization No 07/11/25 14:21 Any Problems With Anesthesia No 07/11/25 14:21 Cholinesterase deficiency No 07/11/25 14:21 You/Your Family Experience No 07/11/25 14:21 fever (hyperthermia) with Relationship Recent Exposure to Contagious No 02/19/25 06:00 Disease Does patient have nerve No 07/11/25 14:21 stimulator Patient instructed to have device shut off --Does patient have Pacemaker or ICD? When Was Last Pacemaker Check QUESTION #4 FULL TEXT: You/Your Family Experience fever (hyperthermia) with Anesthesia Last Oral Intake Last Oral intake: Last Oral Intake NPO since Meds taken in AM with sips of water? Meds patient instructed to take am of surgery PONV PONV - research/program director: PONV - research/program director Female No 07/11/25 14:21 HX of Motion Sickness No 07/11/25 14:21 HX of N/V After Surgery No 07/11/25 14:21 Non-Smoker No 07/11/25 14:21 Duration of Surgery greater Yes 07/11/25 14:21 than 60 minutes Number of Risk Factors 1 07/11/25 14:21 PONV Score Low Risk 07/11/25 14:21 Height & Weight Height & Weight: Anesthesia: Height & Weight Height 6 ft 1 in 02/19/25 06:01 Respiratory Assessment Respiratory Assessment - research/program director: Respiratory Tract Infection Hx - research/program director Hx Respiratory Tract Infection No 07/11/25 14:21 STOP Sleep Apnea STOP Sleep Apnea - research/program director: STOP Sleep Apnea - research/program director Hx Hypertension No 07/11/25 14:21 Hx Sleep Apnea No 07/11/25 14:21 CPAP No 07/11/25 14:21 BIPAP No 07/11/25 14:21 Do you snore loudly (louder No 07/11/25 14:21 than talking or can be heard Do you often feel tired/ No 07/11/25 14:21 fatigued/ sleepy during daytime? Has anyone observed you stop No 07/11/25 14:21 breathing during sleep? STOP Results Negative 07/11/25 14:21 QUESTION #5 FULL TEXT : Do you snore loudly (louder than talking or can be heard through closed doors)? 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 Specify any problems Hx of Preganancy in last 3 N/A 07/11/25 14:21 Months Nurse Filling Out Transfusion NBUCHER 07/11/25 14:21 & Questions: Date: 07/11/25 07/11/25 14:21 Time: 14:23 07/11/25 14:21 Patient unable to answer at this time (ie. confused, unrespo /Reproduction History /Reproductive History - research/program director: /Reproductive Hx- research/program director Hx Now No 07/11/25 14:21 Gestational Age (in weeks): EDC: Hx Hx Para Hx Section SAB No 07/11/25 14:21 PFSH Medical History (Updated 07/11/25 @ 14:21 by Hellen Morgan) Wears dentures Wears glasses Anxiety Depression History of steroid therapy Ambulates with cane History of renal disease Fatty liver Migraine headache Dietary restriction Gastric reflux Smoker History of echocardiogram History of stress test Traumatic amputation of ear Finger amputation, traumatic Enlarged prostate Back pain Arthritis Kidney stones Home Medications ?Medication ?Instructions ?Recorded ?Last Taken ?Type alfuzosin 10 mg tablet,extended 10 mg PO DAILY KIDNEYS 08/05/17 02/18/25 History release 24 hr gabapentin 300 mg capsule 300 mg PO BIDCM NERVE PAIN 1 02/18/25 History glimepiride 4 mg tablet 4 mg PO DAILY DIABETES 08/0502/18/25 History meloxicam 15 mg tablet 15 mg PO DAILY PAIN 08/05/17 02/15/25 History fish oil-dha-epa 1,200 mg-144 1 cap PO DAILY SUPPLEMEN T 09/04/20 02/15/25 History mg-216 mg capsule morphine 15 mg tablet,extended 15 mg PO TID PAIN 09/0402/18/25 History release ondansetron 4 mg disintegrating 4 mg PO Q8H PRN PRN Na usea #10 tabs 09/15/22 Unknown Rx tablet aspirin 81 mg tablet,delayed 81 mg PO QDAY HEART HEALT H 12/18/24 02/15/25 History release (Adult Aspirin Regimen) cholecalciferol (vitamin D3) 50 50 mcg PO QDAY SUPPLEM ENT 12/18/24 02/18/25 History mcg (2,000 unit) capsule empagliflozin 25 mg tablet 25 mg PO QDAY DIABETES 11/2602/15/25 History hydroxyzine pamoate 25 mg capsule 25 mg PO QDAY PRN an xiety 12/18/24 Unknown History docusate sodium 100 mg capsule 100 mg PO BID STOOL SOF TENER 02/14/25 02/18/25 History (Colace) psyllium husk 3.4 gram/5.4 gram 1 tbsp PO DAILY SUPPLE MENT 02/14/25 02/18/25 History oral powder (Metamucil) acetaminophen 500 mg/15 mL oral 500 mg PO Q4H PRN pain 02/19/25 02/18/25 History liquid denosumab 60 mg/mL subcutaneous 60 mg subcut QMONTH SAVANNAH NE DENSITY 07/11/25 Unknown History syringe (Prolia) mecobalamin (vitamin B12) 2,500 2,500 mcg PO DAILY SUP PLEMENT 07/11/25 Unknown History mcg chewable tablet pantoprazole 40 mg tablet,delayed 40 mg PO DAILY GERD 07/11/25 Unknown History release Allergy/AdvReac Type Severity Reaction Status Date / Time hydrocodone (From Vicodin) Allergy Rash Verified 07/11/25 14:13 celecoxib (From Celebrex) AdvReac goofy Verified 07/11/25 14:13 Surgical History (Updated 07/11/25 @ 14:21 by Hellen Morgan) History of esophagogastroduodenoscopy (EGD) History of rotator cuff surgery H/O lithotripsy Social History Smoking Status: Current every day smoker tobacco type: cigarettes alcohol intake: never substance use type: does not use Audit: Pertinent Findings Pertinent Findings EKG Perinent findings: 02/06/2025. Normal sinus rhythm. Inferior infarct, age undetermined. Stress test pertinent findings: 03/29/2025. EF is 69%. No evidence of significant ischemia or infarction. Echo (EF%) pertinent findings: 03/29/2025. EF is 60%. No aortic stenosis. Recommendation Anesthesia Recommendation Anesthesia recommendation: OPTIMIZED for anesthesia
[2025-08-09] VITALS (13 sets, daily range): BP systolic 124–180; BP diastolic 62–100; PULSE 83–114; RESP 16–18; TEMP 36.1–36.9; O2SAT 93–100; BMI 24.4
--- OUTSIDE RECORDS SUMMARY | 2025-08-09 08:13 | XMS RPT_ITS | CCD ---
Author Organization [facility] Care Team Providers Care [employer] Administrator Name Role Phone ISIAH LOBO DO Primary Care Physician Isiah Lobo DO Primary Care Provider [phone] Domenic Khan Attending Unavailable Unavailable Primary Care Provider Unavailabl e Unavailable Primary Care Provider Unavailabl e REFERRING, ELO LINO ID Attending Unavailable RODRIGO HUNTER, DR REY WALTERS Attending [facility] Isiah Lobo DO Primary Care Provider [phone] PHYSICIAN, PATIENT UNSURE Primary Care Physician Unavailable MIKE AGUIRRE MD Attending Unavailable PHYSICIAN, PATIENT UNSURE Primary [place] Primary Care Provider Unavailabl e NP. Larisa Leal Attending Provider NP. Larisa Leal Referring Provider [place] Primary Care [place] Referring Provider Unavailable Luz Hector Attending Provider [phone] Gianni HUNTER, Dr. Rodríguez Attending Provider Dr. Vickey Espinoza MD Attending Provider [phone] Shakira Dee Attending Provider Shakira Dee Referring Provider Dr. Rey Wallace MD Attending Provider Dr. Rey Wallace MD Referring Provider Luz Hector Referring Provider [place] Primary Care Provider Unavailabl e Mckenna Dill Attending Provider Yoana Chambers Referring Provider Livia HUNTER, Dr. Ennis Attending Provider Livia HUNTER, Dr. Ennis Referring Provider [facility], [place] Referring Provider Unavailable Ken MCKENNA, Dr. Elizalde Attending Provider Ken MCKENNA, Dr. Elizalde Other Provider Charito CARTER-CDomenic Attending Provider Charito CARTER-CDomenic Referring Provider Fawn HUNTER, Dr. Parsons Attending Provider YOANA LION PA-C Attending Unavailable PHYSICIAN, PATIENT UNSURE Primary Care Unavai lable YOANA LION PA-C Attending Unavailable PHYSICIAN, PATIENT UNSURE Primary Care Unavai lable PHYSICIAN, PATIENT UNSURE Primary Care Unavai lable GABY GRAY DO Attending Unavailable YOANA LION PA-C Attending Unavailable PHYSICIAN, PATIENT UNSURE Primary Care Unavai lable Rey Wallace Referring Unavailable RodrigoRey acosta Attending [facility] [place] [facility] Unavailable Jung, Allyse Referring Unavailable JungLucindae Attending [facility] [place] [facility] Unavailable Raymon Bhakta Referring Unavailable Raymon Bhakat Attending [facility] [place] [facility] Un[facility] Jaqueline Augustine [facility]ending [facility] [place] [facility] Unavailable Tonio Rogers Attending Unavailable Tonio Rogers Consulting [facility] [place] [facility] [place] Referring Unavailable Luz Bacon Attending [facility] [place] Ref[facility] [place] [facility] Unavailable Marcos Archer Attending [facility] [place] Ref[facility] [place] [facility] [place] [facility] Un[place] Vickey Espinoza Attending [facility] [place] [facility] Unavailable Domenic Khan NP Referring Unavailable Domenic Khan NP Attending Unavailable Yoana Lion Referring Unavailable Mckenna Dill Attending [facility] [place] [facility] Unavailable Mel Larisa Referring Unavailable Larisa Leal Attending [facility] [place] [facility] Unavailable Luz Bacon Referring Unavailable Luz Bacon Attending [facility] [place] [facility] Unavailable Shakira Dee Referring Unavailable Shakira Dee Attending [facility] [place] [facility] [place] Un[place] Tonio Rogers Attending [place] [facility] [facility] Referring Unavailable Harshad Lima Attending Unavailable Harshad Lima Admitting [facility] [place] Primary Care Unavailable Luz Bacon Referring Unavailable Luz Bacon Attending [facility], [place] Primary Care Unavailable Allergies Allergy Classification Reported Allergen(s) Allergy Type Date of Onset Reaction(s) Facility (20 sources) Acetaminophen / HYDROcodone; Translations: [acetaminophen-hy drocodone] Drug Allergy 0 Hives [facility] Comment on above: called and talked to Hortensia Sam RN and she spoke with patient and patient stated that he has taken plain tylenol and had no reaction to it but when pt took vicodin then vicodin caused hives and delusions------[facility] 1043 12/16/14 (20 sources) Amoxicillin; Translations: [amoxicillin] Drug Allergy 2 Headache (finding), Nausea (finding), Dyspnea (finding), Intolerance, GI Upset, Shortness of Breath [facility] (20 sources) buPROPion; Translations: [bupropion] Drug Allergy 2 Nausea (finding), Unknown, GI Upset [facility] (20 sources) celecoxib; Translations: [celecoxib] Drug Allergy 0 Mental Status Change [facility] (20 sources) varenicline; Translations: [varenicline] Drug Allergy 2 Unknown [facility] Comment on above: makes him loopy (17 sources) HYDROcodone; Translations: [HYDROCODONE] Drug Allergy 2 Rash [facility] (8 sources) metFORMIN; Translations: [METFORMIN] Drug Allergy 8 GI Upset [facility] (1 source) Acetaminophen / HYDROcodone; Translations: [HYDROCODONE-ACET AMINOPHEN] Drug Allergy 0 [facility] (1 source) celecoxib Drug Allergy 5 [facility] (1 source) HYDROcodone Drug Allergy 5 [facility] Medications Current Medications Medication Drug Class(es) Dates Sig (Normalized) Sig (Original) acetaminophen 33.3 mg/ml oral solution (1 source) Start: 02-19-2025 take 500 mg by mouth every four hours as needed for pain Acetaminophen 500 mg/15 mL liquid Active 500 mg PO Q4H as needed for pain February 19, 2025 12:00am acetaminophen 325 mg / oxyCODONE hydrochloride 5 mg oral tablet (1 source) Opioid Agonist Start: 09-15-2022 take 1 tablet by mouth every six hours as needed Oxycodone-Acetamino phen Active 1 TABLET PO EVERY 6 HOURS NEEDED 12 3 September 15, 2022 [id number] 200 actuat albuterol 0.09 mg/actuat metered dose [...] 0 Refill(s) Start Date: 11/04/21 Status: Ordered Medication Dispense Status: Completed Quantity: 30.0 Unit: tab(s) Total Allowed Fills: 1 Fills Dispensed: 0 Comment on above: Take 10 mg by [...] 0 Refill(s) Start Date: 12/16/14 Status: Ordered Medication Dispense Status: Completed Total Allowed Fills: 1 Fills Dispensed: 0 aspirin 81 mg ch ewable tablet Take 81 mg by mouth. Active Comment on above: Take 81 mg by mouth. benzonatate 100 mg oral capsule (6 sources) Non-narcotic Antitussive Start: End: 5 take 1 capsule by mouth three times [...] TID, # 90 tab(s), 5 Refill(s), Pharmacy: [id number], Trouble in sleeping Anxiety depression, 183, cm, 03/12/22 8:43:00 EDT, Height Start Date: 03/12/22 Status: Ordered cholecalciferol 0.05 mg oral capsule (13 sources) Vitamin D Start: 12-18-19 25 take 1 capsule by mouth once daily Cholecalciferol (Vitamin D3) 50 mcg (2,000 unit) capsule Active 50 ug PO daily December 18, 2024 1:00am Start: 05-10-2019 cholecalcifero l, vitamin D3, 10 mcg (400 unit) cap 2,000 Units. 05/10/2019 Active Comment on above: 2,000 Units. docusate sodium 100 mg oral capsule (18 sources) Start: 02-14-2025 take 1 capsule by mouth twice daily Docusate Sodium (Colace) 100 mg capsule Active 100 mg PO TWICE A DAY February 14, 2025 12:00am Start: 11-05-2017 docusate sodiu m (COLACE) 100 mg capsule 100 mg. 11/05/2017 Active Start: 11-05-2017 take 1 dose by mouth twice daily Colace Dose : 100 mg =, Oral, BID, 0 Refill(s) Start Date: 11/05/17 Status: Ordered Medication Dispense Status: Completed Total Allowed Fills: 1 Fills Dispensed: 0 Comment on above: 100 mg. empagliflozin 25 mg oral tablet (16 sources) Sodium-Glucose Cotransporter 2 Inhibitor Start: 12-18-19 take 1 tablet by mouth once daily Empagliflozin 25 mg tablet Active 25 mg PO daily December 18, 2024 1:00am Start: 05-10-2019 empagliflozin 10 mg oral tablet Dose : 10 mg = 1 tab(s), Oral, qAM, 0 Refill(s) Start Date: 05/10/19 Status: Ordered Medication Dispense Status: Completed Total Allowed Fills: 1 Fills Dispensed: 0 Fish Oil-Dha-Epa (3 sources) Start: 09-04-2020 take 1 capsule by mouth once daily Fish Oil-Dha-Epa Active 1 CAP PO DAILY September 04, 2020 12:00am Start: 09-04-2020 take 1 capsule by mo [facility] once daily Fish Oil-Dha-Epa Active 1 CAP PO DAILY September 04, 2020 1:00am Fish Oil-Dha-Epa 1 EACH capsule (6 sources) Start: 09-04-2020 take 1 capsule by mouth once daily Fish Oil-Dha-Epa 1 EACH capsule Active 1 NMA PO DAILY September 04, 2020 1:00am Fish Oils (10 sources) Start: 09-12-2017 Fish Oil 1000 mg oral capsule Dose : 1,000 mg = 1 cap(s), Oral, qDay, 0 Refill(s) Start Date: 09/12/17 Status: Ordered Medication Dispense Status: Completed Total Allowed Fills: 1 Fills Dispensed: 0 Start: 09-12-2017 Fish Oil 1000 mg oral [...] 0 Refill(s) Start Date: 09/12/17 Status: Ordered Medication Dispense Status: Completed Total Allowed Fills: 1 Fills Dispensed: 0 Comment on above: 300 mg. glimepiride 4 mg oral tablet (20 sources) Sulfonylurea Start: 12-16-2014 glimepiride 4 mg oral tablet Dose : 4 mg = 1 tab(s), Oral, qDay, # 30 tab(s) Start Date: 12/16/14 Status: Ordered Medication Dispense Status: Completed Quantity: 30.0 Unit: tab(s) Total Allowed Fills: 1 Fills Dispensed: 0 Comment on above: Take 4 mg by mouth. 12 hr guaiFENesin 600 mg extended release oral tablet (2 sources) Start: 11-14-2024 End: 11-21-2024 take 2 tablets by mouth twice daily guaiFENesin (MUCINEX) 600 mg 12 hr tablet Indications: Chest congestion Take 2 tablets by mouth two times a day for 7 days. 28 tablet 11/14/2024 11/21/2024 Active hydrOXYzine pamoate 25 mg oral capsule (7 sources) Antihistamine Start: 12-18-2024 take 1 capsule by mouth once daily as needed for anxiety Hydroxyzine Pamoate 25 mg capsule Active 25 mg PO daily as needed for anxiety December 18, 2024 1:00am Start: 09-04-2020 take 25-50 mg by hero th at bedtime Hydroxyzine Pamoate Active 25 - 50 MG PO AT BEDTIME September 04, 2020 1:00am losartan potassium 25 mg oral tablet (9 sources) Angiotensin 2 Receptor Tony Start: 05-12-2023 losartan 25 mg oral tablet Dose : 25 mg = 1 tab(s), Oral, qDay, # 90 tab(s), 1 Refill(s), Pharmacy: [facility] #[id number], Hypertension associated with type 2 diabetes mellitus, 182.5, cm, 05/12/23 10:30:00 EDT, Height, kg, 05/12/23 10:30:00 EDT, Dosing Weight Start Date: 05/12/23 Status: Ordered Medication Dispense Status: Completed Quantity: 90.0 Unit: tab(s) Total Allowed Fills: 2 Fills Dispensed: 0 Indications: Type 2 diabetes mellitus with other circulatory complications; Start: 03-03-2022 losartan 25 mg oral tablet Dose : 25 mg = 1 tab(s), Oral, qDay, # 90 tab(s), 1 Refill(s), Pharmacy: [facility], Diabetes, 183, cm, 03/03/22 14:20:00 EDT, Height Start Date: 03/03/22 Status: Ordered meloxicam 15 mg oral tablet (20 sources) Nonsteroidal Anti-inflammatory Drug Start: 08-05-2017 Mobic 15 mg oral tablet Dose : 15 mg = 1 tab(s), Oral, qDayM, # 90 tab(s), 0 Refill(s) Start Date: 09/12/17 Status: Ordered Medication Dispense Status: Completed Quantity: 90.0 Unit: tab(s) Total Allowed Fills: 1 Fills Dispensed: 0 Comment on above: 15 mg. morphine sulfate [...] for pain Start Date: 05/10/19 Status: Ordered Medication Dispense Status: Completed Total Allowed Fills: 1 Fills Dispensed: 0 Comment on above: take 1 tablet by mouth three times a day if needed for pain nitrofurantoin, macrocrystals 25 mg / nitrofurantoin, monohydrate 75 mg oral capsule (1 source) Nitrofuran Antibacterial Start: 022 End: take 1 capsule by mouth twice daily nitrofurantoin monohydrate and macrocrystal (MACROBID) 100 mg capsule Take 1 capsule by mouth twice daily for 5 days. 10 capsule 0 09/18/2022 09/23/2022 Active Comment on above: Take 1 capsule by mo [facility] twice daily for 5 days. omega 5-pvy-dqe-fish oil (FISH OIL) 100-160-1,000 mg cap (7 sources) Start: 017 take 100-160 capsules by mouth once daily omega 8-wui-lys-fish oil (FISH OIL) 100-160-1,000 mg cap Take 1,000 mg by mouth once daily. 09/12/2017 Active Start: 09-12-2017 take 100-160 capsule s by mouth once daily omega 2-vzu-vnv-fish oil (FISH OIL) 100-160-1,000 mg cap Take 1,000 mg by mouth once daily. 0 09/12/2017 Active Comment on above: Take 1,000 mg by [facility] once daily. ondansetron 4 mg disintegrating oral tablet (15 sources) Serotonin-3 Receptor Antagonist Start: take 1 tablet by mouth every eight hours as needed for nausea Ondansetron 4 MG tablet Active 4 mg PO EVERY 8 HOURS NEEDED as needed for Nausea September 15, 2022 1:00am Start: 07-08-2020 take 1 tablet by hero three times daily ondansetron orally disintegrating (ZOFRAN ODT) 4 mg disintegrating tablet 4 mg three times daily. 07/08/2020 Active Comment on above: 4 mg three times coleen ly. pantoprazole 40 mg delayed release oral tablet (19 sources) Proton Pump Inhibitor Start: 09-09-2022 End: 12-18-2024 pantoprazole 40 mg oral enteric coated tablet Dose : 40 mg = 1 tab(s), Oral, BID, # 60 tab(s), 0 Refill(s) Start Date: 12/03/24 Status: Ordered Medication Dispense Status: Completed Quantity: 60.0 Unit: tab(s) Total Allowed Fills: 1 Fills Dispensed: 0 psyllium 3400 mg powder for oral suspension (1 source) Start: 02-14-2025 Psyllium Husk (Metamucil) 3.4 gram/5.4 gram powder Active 1 tbsp PO DAILY February 14, 2025 12:00am mix into at least 8 oz of water or juice before administering tamsulosin hydrochloride 0.4 mg oral capsule (7 sources) alpha-Adrenergic Tony tamsulosin (FLOMAX) 0.4 mg Take 0.4 mg by mouth. Active Comment on above: Take 0.4 mg by mouth . traZODone hydrochloride 50 mg oral tablet (1 source) Serotonin Reuptake Inhibitor Start: 07-04-2021 End: 11-01-2021 traZODone 50 mg oral tablet Dose : 50 mg = 1 tab(s), Oral, qHS, # 90 tab(s), 1 Refill(s), Pharmacy: [address], Trouble in sleeping, 183.5, cm, 07/04/21 10:00:00 EDT, Height, kg, 07/04/21 10:00:00 EDT, Dosing Weight Start Date: 07/04/21 Stop Date: 11/01/21 Status: Ordered Vitamin D3 (10 sources) Start: 05-10-2019 Vitamin D3 Dose : 2,000 unit(s) = 1 tab(s), Oral, qDay, # 60 tab(s), 0 Refill(s) Start Date: 05/10/19 Status: Ordered Medication Dispense Status: Completed Quantity: 60.0 Unit: tab(s) Total Allowed Fills: 1 Fills Dispensed: 0 Start: 05-10-2019 Vitamin D3 Dos e : [...] MDI (90 mcg/inh) CFC free inhalation aerosol (4 sources) Start: 12-23-2022 End: 03-23-2023 take 2 puff(s) by inhalation every four hours albuterol MDI (90 mcg/inh) CFC free inhalation aerosol 2 puff(s), Inhalation, q4h, # 1 EA, 2 Refill(s), Pharmacy: [facility] #[id number], Viral bronchitis Heavy smoker, 182, cm, 12/23/22 8:59:00 EST, Height Start Date: 12/23/22 Stop Date: 03/23/23 Status: Ordered Medication Dispense Status: Completed Quantity: 1.0 Unit: EA Total Allowed Fills: 3 Fills Dispensed: 0 Indications: Nicotine dependence, unspecified, uncomplicated; Acute bronchitis due to other specified organisms; Start: 12-23-2022 End: 03-23-2023 take 2 puff(s) by inhalation every four hours albuterol MDI (90 mcg/inh) CFC free inhalation aerosol 2 puff(s), Inhalation, q4h, # 1 EA, 2 Refill(s), Pharmacy: [facility] #[id number], Viral bronchitis Heavy smoker, 182, cm, 12/23/22 [...] q4h, # 1 EA, 2 Refill(s), Pharmacy: [facility] #[id number], Viral bronchitis Heavy smoker, 182, cm, 12/23/22 8:59:00 EST, Height Start Date: 12/23/22 Stop Date: 03/23/23 Status: Ordered amitriptyline hydrochloride 10 mg oral tablet (4 sources) Tricyclic Antidepressant Start: 05-12-2023 End: 08-10-2023 amitriptyline 10 mg oral tablet Dose : 10 mg = 1 tab(s), Oral, qHS, Aware of age. Medication works well for patient, # 90 tab(s), 1 Refill(s), Pharmacy: [facility] #[id number], Trouble in sleeping Recurrent major depression, 182.5, cm, 05/12/23 10:30:00 EDT, Height, kg, 05/12/23 10:30:00 EDT, Dosing Weight Start Date: 05/12/23 Stop Date: 08/10/23 Status: Ordered Medication Dispense Status: Completed Quantity: 90.0 Unit: tab(s) Total Allowed Fills: 2 Fills Dispensed: 0 Indications: Major depressive disorder, recurrent, unspecified; Sleep disorder, unspecified; amoxicillin 875 mg / clavulanate 125 mg oral tablet (7 sources) Penicillin-class Antibacterial Start: 12-20-2022 End: 12-18-2024 take 1 tablet by mouth every twelve hours Amoxicillin-Pot Clavulanate 875-125 mg tablet Discontinued 875 mg PO Q12H December 20, 2022 1:00am December 18, 2024 12:01pm ergocalciferol 1.25 mg oral capsule (9 sources) Provitamin D2 Compound Start: 09-04-2020 End: 12-18-2024 take 1 capsule by mouth once daily Ergocalciferol (Vitamin D2) 50,000 UNIT capsule Discontinued 50 U PO DAILY September 04, 2020 1:00am December 18, 2024 12:00pm Start: 09-04-2020 Ergocalciferol (Vitamin D2) Active 24069 UNIT PO .FRIDAY September 04, 2020 12:00am traMADol hydrochloride 50 mg oral tablet (7 sources) Opioid Agonist Start: 12-20-2022 End: 02-14-2025 take 1 tablet by mouth every four hours as needed for pain Tramadol 50 mg tablet Discontinued 50 mg PO EVERY 4 HOURS NEEDED as needed for Pain 10 December 20, 2022 1:00am February 14, 2025 2:39pm Problems Active Problems Problem Classification Problem Date Documented Date Episodic/Chronic Acute bronchitis (13 sources) Acute bronchitis; Translations: [Acute bronchitis, unspecified] 12-20-2022 Episodic Anxiety disorders (20 sources) Anxiety; Translations: [Mixed anxiety and depressive disorder] Onset: 11-14-1905-09-2019 Chronic Calculus of urinary tract (20 sources) Kidney stone; Translations: [Calculus of kidney] 12-16-2014 Episodic Chronic kidney disease (11 sources) Chronic kidney disease stage 3; Translations: [Stage 3 chronic kidney disease] Onset: 11-14-1909-04-2020 Chronic Chronic obstructive pulmonary disease and bronchiectasis (2 sources) Bronchitis; Translations: [Bronchitis, not specified as acute or chronic] Episodic Diabetes mellitus with complications (6 sources) Type II diabetes mellitus uncontrolled 05-12-2023 Chronic Diabetes mellitus without complication (20 sources) Diabetes mellitus; Translations: [Type 2 diabetes mellitus without complications] Onset: 11-14-1912-16-2014 Chronic Diabetes mellitus without complication (1 source) Glycosuria; Translations: [Glycosuria] Episodic Disorders of lipid metabolism (12 sources) Hypertriglyceridemia 05-09-2019 Chronic Esophageal disorders (20 sources) Gastroesophageal reflux disease; Translations: [Gastro-esophageal reflux disease without esophagitis] Onset: 11-14-1905-09-2019 Chronic Esophageal disorders (2 sources) Esophageal disorders; Translations: [Gastro-esophageal reflux disease with esophagitis, without bleeding] Onset: 12-18-19 Essential hypertension (8 sources) Hypertensive disorder; Translations: [Essential (primary) hypertension] Onset: 11-14-1905-12-2023 Chronic Genitourinary symptoms and ill-defined conditions (1 source) Scalding pain on urination ; Translations: [Dysuria] 04-10-2024 Episodic Headache; including migraine (1 source) Headache; Translations: [Headaches] 11-14-2024 Episodic Hyperplasia of prostate (12 sources) Benign prostatic hyperplasia 03-11-2016 Chronic Malaise and fatigue (12 sources) Fatigue 02-23-2020 Episodic Mood disorders (8 sources) Recurrent major depression; Translations: [Major depressive disorder, recurrent, unspecified] Onset: 11-14-1905-12-2023 Chronic Nonspecific chest pain (1 source) Tight chest; Translations: [Other chest pain] 11-14-2024 Episodic Nutritional deficiencies (12 sources) Vitamin D deficiency 02-23-2020 Chronic Osteoarthritis (12 sources) Arthritis 12-16-2014 Chronic Other acquired deformities (12 sources) Lumbar spondylolisthesis; Translations: [Spondylolisthesis, lumbar region] 12-25-2024 Episodic Other circulatory disease (1 source) Pulmonary congestion ; Translations: [Other specified symptoms and signs involving the circulatory and respiratory systems] 11-14-2024 Episodic Other disorders of stomach and duodenum (13 sources) Delayed gastric emptying; Translations: [Functional dyspepsia] 12-18-2024 Episodic Other gastrointestinal disorders (20 sources) Dysphagia; Translations: [Dysphagia, unspecified] 12-22-2019 Episodic Other injuries and conditions due to external causes (9 sources) Food lodged in esophagus; Translations: [Food in esophagus causing other injury, initial encounter] 08-16-2022 Episodic Other injuries and conditions due to external causes (1 source) Foreign body in esophagus; Translations: [Food in esophagus causing other injury, initial encounter] Onset: 12-03-19 Episodic Other liver diseases (12 sources) Steatosis of liver 05-09-2019 Chronic Other lower respiratory disease (14 sources) Dyspnea; Translations: [Dyspnea, unspecified] 01-09-2021 Episodic Other lower respiratory disease (1 source) Cough; Translations: [Acute cough] 11-14-2024 Episodic Other nervous system disorders (9 sources) Chronic pain syndrome; Translations: [Chronic pain syndrome] 09-04-2020 Chronic Other nutritional; endocrine; and metabolic disorders (10 sources) Overweight in adulthood with body mass index of 25 or more but less than 30 08-14-2022 Episodic Other upper respiratory infections (2 sources) Acute upper respiratory infection; Translations: [Acute upper respiratory infection, unspecified] Episodic Otitis media and related conditions (13 sources) Acute left otitis media; Translations: [Otitis media, unspecified, left ear] 12-20-2022 Episodic Residual codes; unclassified (12 sources) Insomnia 10-04-2019 Episodic Residual codes; unclassified (12 sources) Needs influenza immunization 07-30-2020 Episodic Residual codes; unclassified (12 sources) Requires vaccination 07-04-2021 Episodic Residual codes; unclassified (12 sources) Tobacco user 06-21-2019 Episodic Residual codes; unclassified (9 sources) Tobacco use and exposure - finding; Translations: [Tobacco use] 11-20-2013 Episodic Screening and history of mental health and substance abuse codes (1 source) Personal history of nicotine dependence; Translations: [Personal history of nicotine dependence] Onset: 06-05-20 23 Episodic Spondylosis; intervertebral disc disorders; other back problems (13 sources) Lumbar spondylosis; Translations: [Spondylosis without myelopathy or radiculopathy, lumbar region] Onset: 12-26-1912-25-2024 Chronic Substance-related disorders (12 sources) Smoker 06-21-2019 Chronic Superficial injury; contusion (1 source) Contusion of knee; Translations: [Contusion of unspecified knee, initial encounter] Onset: 08-20-20 Episodic Transient cerebral ischemia (14 sources) Transient cerebral ischemia; Translations: [Transient cerebral ischemic attack, unspecified] Onset: 11-14-1903-11-2016 Chronic Unclassified (20 sources) Patient encounter status 03-03-2022 Unclassified (11 sources) Statin not tolerated (context-dependent category) 11-04-2021 Unclassified (1 source) Low back pain, unspecified; Translations: [Low back pain, unspecified] Onset: 12-26-19 Past or Other Problems Problem Classification Problem Date Documented Da te Episodic/Chronic Other acquired deformities (1 source) Spondylolisthesis, lumbar region; Translations: [Spondylolisthesis , lumbar region] Onset: 12-25-2024 Episodic Other acquired deformities (1 source) Unspecified acquired deformity of right lower leg; Translations: [Unspecified acquired deformity of right lower leg] Onset: 10-30-2024 Episodic Other disorders of stomach and duodenum (2 sources) Functional dyspepsia; Translations: [Functional dyspepsia] Onset: 12-18-2024 Episodic Other gastrointestinal disorders (2 sources) Dysphagia, unspecified; Translations: [Dysphagia, unspecified] Onset: 03-01-2025 Episodic Other screening for suspected conditions (not mental disorders or infectious disease) (14 sources) Viral screening status; Translations: [Encounter for screening for malignant neoplasm of respiratory organs] Onset: 03-29-2023 08-14-2022 Episodic Spondylosis; intervertebral disc disorders; other back problems (14 sources) Chronic low back pain; Translations: [Acute low back pain] Onset: 01-10-2025 09-13-2017 Episodic Sprains and strains (4 sources) Injury of multiple muscles and tendons at shoulder and upper arm level; Translations: [Strain of other muscles, fascia and tendons at shoulder and upper arm level, left arm, subsequent encounter] Onset: 02-12-2025 Episodic Results Test Name Value Interpretation Reference Range Facility MRSA/SAID NASAL SCREENon MRSA+SAID SCRN Reason for Exam: PRE OP MRSA MRSA Negative S. AUREUS S. aureus Negative [facility] Comment on above: Performed By: #### M 100.651 ####[facility] [address] [place], [address] 12 Lead EKGon 07-19-2025 12 Lead EKG [facility] Cardiovascular Services [address] [place] [address] 12 Lead EKG 07/19/25 09 MR#: [id number] Acct: [id number] Name: AGAPITO MESSER Rep #: [id number] : 1950 74 From: Raymon Bhakta MD Attending Dr: Dr. Harshad Lima DO Status: PRE IN Ordering Dr: Gorge Sal MD Date: 07/19/25 Location: [facility] Sex: M C Admitted: Test Reason : PREOP Blood Pressure : */* mmHG Vent. Rate : 97 BPM Atrial Rate : 97 BPM P-R Int : 154 ms QRS Dur : 70 ms QT Int : 350 ms P-R-T Axes : 71 -4 34 degrees QTcB Int : 444 ms Normal sinus rhythm Possible Inferior infarct , age undetermined Abnormal ECG Confirmed by Raymon Bhakta ([id number]), medical editor OLYA RODRÍGUEZ ([id number]) on 07/20/2025 5:53:06 AM Referred By: HARSHAD LIMA Confirmed By: Raymon Bhakta 07/20/25 0553 Date Raymon Bhakta MD CC: Dr. Gorge Sal MD; Dr. Harshad Lima DO; [facility] Signed Normal [facility] MR/PAT.[place] 07-19-2025 MR/PAT.[facility] Medical Records Department [address] [place] [address] PAT - Anesthesia 07/19/25 180 MR#: [id number] Acct: [id number] Name: AGAPITO MESSER Rep #: [id number] : 1950 74 From: Nickolas Torre MD [place]CP: [facility] Status:PRE IN Y Race: C Location: [facility] Pre-Assessment Diagnosis/Proposed Procedure Planned Operative Procedure(s): (L) Total Knee Replacement Robotic Arm Radha Anesthesia History Anesthesia History - front office specialist: Anesthesia History - front office specialist Hx Hospitalization No 07/11/25 14:21 Any Problems With Anesthesia No 07/11/25 14:21 Cholinesterase deficiency No 07/11/25 14:21 You/Your Family Experience No 07/11/25 14:21 fever (hyperthermia) with Relationship Recent Exposure to Contagious No 02/19/25 06:00 Disease Does patient have nerve No 07/11/25 14:21 stimulator Patient instructed to have device shut off --Does patient have Pacemaker or ICD? When Was Last Pacemaker Check QUESTION #4 FULL TEXT: You/Your Family Experience fever (hyperthermia) with Anesthesia Last Oral Intake Last Oral intake: Last Oral Intake NPO since Meds taken in AM with sips of water? Meds patient instructed to take am of surgery PONV PONV - front office specialist: PONV - front office specialist Female No 07/11/25 14:21 HX of Motion Sickness No 07/11/25 14:21 HX of N/V After Surgery No 07/11/25 14:21 Non-Smoker No 07/11/25 14:21 Duration of Surgery greater Yes 07/11/25 14:21 than 60 minutes Number of Risk Factors 1 07/11/25 14:21 PONV Score Low Risk 07/11/25 14:21 Height Weight Height Weight: Anesthesia: Height Weight Height 6 ft 1 in 02/19/25 06:01 Respiratory Assessment Respiratory Assessment - front office specialist: Respiratory Tract Infection Hx - front office specialist Hx Respiratory Tract Infection No 07/11/25 14:21 STOP Sleep Apnea STOP Sleep Apnea - front office specialist: STOP Sleep Apnea - front office specialist Hx Hypertension No 07/11/25 14:21 Hx Sleep Apnea No 07/11/25 14:21 CPAP No 07/11/25 14:21 BIPAP No 07/11/25 14:21 Do you snore loudly (louder No 07/11/25 14:21 than talking or can be heard Do you often feel tired/ No 07/11/25 14:21 fatigued/ sleepy during daytime? Has anyone observed you stop No 07/11/25 14:21 breathing during sleep? STOP Results Negative 07/11/25 14:21 QUESTION #5 FULL TEXT : Do you snore loudly (louder than talking or can be heard through closed doors)? 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 Specify any problems Hx of Preganancy in last 3 N/A 07/11/25 14:21 Months Nurse Filling Out Transfusion NBUCHER 07/11/25 14:21 Questions: Date: 07/11/25 07/11/25 14:21 Time: 14:23 07/11/25 14:21 Patient unable to answer at this time (ie. confused, unrespo /Reproduction History /Reproductive History - front office specialist: /Reproductive Hx- front office specialist Hx Now No 07/11/25 14:21 Gestational Age (in weeks): EDC: Hx Hx Para Hx Section SAB No 07/11/25 14:21 PFSH Medical History (Updated 07/11/25 @ 14:21 by Hellen Morgan) Wears dentures Wears glasses Anxiety Depression History of steroid therapy Ambulates with cane History of renal disease Fatty liver Migraine headache Dietary restriction Gastric reflux Smoker History of echocardiogram History of stress test Traumatic amputation of ear Finger amputation, traumatic Enlarged prostate Back pain Arthritis Kidney stones Home Medications ???Medication ???Instructions ???Recorded ???Last Taken ???Type alfuzosin 10 mg tablet,extended 10 mg PO DAILY KIDNEYS 08/05/17 History release 24 hr gabapentin 300 mg capsule 300 mg PO BIDCM NERVE PAIN 7 02/18/25 History glimepiride 4 mg tablet 4 mg PO DAILY DIABETES 08/05/17 History meloxicam 15 mg tablet 15 mg PO DAILY PAIN 08/05/1702/15 History (more content not included)... Normal [facility] CT KNEE W/O CONTRAST LEFTon 07-12-2025 CT KNEE W/O CONTRAST LEFT ORIGINAL EXAMINATION: CT OF THE LEFT KNEE WITHOUT CONTRAST07/09/2025 2:29 pm TECHNIQUE: CT of the left knee was performed without the administration of intravenous contrast. Multiplanar reformatted images are provided for review. Automated exposure control, iterative reconstruction, and/or weight based adjustment of the mA/kV was utilized to reduce the radiation dose to as low as reasonably achievable. The study includes the ipsilateral hip and ankle axial images also. COMPARISON: None HISTORY: ORDERING SYSTEM PROVIDED HISTORY: Reason for Exam: Unilateral primary osteoarthritis, left knee pre-surgical planning, Cristopher protocol, chronic knee pain FINDINGS: Left hip: No acute osseous abnormality. Mild degenerative changes of the left hip and sacroiliac joint. Incidental sigmoid diverticulosis. Left knee: No acute osseous abnormality. Moderate to severe joint space narrowing in the medial tibiofemoral compartment with associated vacuum phenomenon, osteophyte formation, subchondral sclerosis, and subchondral cyst formation. Mild joint space narrowing of the lateral tibiofemoral compartment with associated osteophyte formation and subchondral sclerosis. Mild joint space narrowing is present in the patellofemoral compartment with associated osteophyte formation and subchondral sclerosis. Patellar enthesopathy. Small left knee joint effusion and mild prepatellar soft tissue swelling. Left ankle. No acute findings. Calcaneal enthesopathy. Likely incidental subchondral cystic lesion in the medial dome of the right talus. IMPRESSION: No acute findings. Tricompartmental degenerative changes of the left knee most pronounced in the medial tibiofemoral compartment. I have personally reviewed the images of this examination and agree with the resident's findings and interpretation. Interpreted by: Harley Lewis MD Preliminary Report By: Santiago Wilder Electronically signed By Harley Lewis MD Dictated Date: 07/10/2025 9:49:38 AM Prelim Date: 07/12/2025 8:22:35 AM Sign Date: 07/12/2025 8:22:35 AM Ordering Provider: YOANA Costello [facility] Cardiovascular stress test r eportOrdered By: Jaqueline Augustine on 03-29-2025 Study report [facility] Cardiovascular Services [address] [place] [address] MR#: [id number] Acct: [id number] Name: AGAPITO MESSER Rep #: [id number] : 1950 74 From: Jaqueline feliciano MD [facility]: [facility] Status: REG CLI Referring Dr: Domenic Khan NP [employer] Sex: M C Stress Test Report Date: 03/29/2025 Procedure: Pharmacologic stress nuclear imaging study Indications: Abnormal EKG, preop evaluation Consent: Per the patient Procedure: The patient underwent pharmacologic (Regadenoson) evaluation with a peak heart rate of 103 beats per minute (70%predicted maximal heart rate) and a peak blood pressure of 132/78 mmHg. The baseline ECG demonstrated normal sinus rhythm. EKG during lexiscan infusionrevealed no significant ischemic changes. EKG post infusion revealed no significant ischemic changes [There were no cardiac dysrhythmias pretest, during pharmacologic infusion, or recovery]. [There was no complaint of chest discomfort during pharmacologic infusion or recovery]. The examination was discontinued secondary to completion of protocol. Impression: 1. Lexiscan stress test test is negative for Lexiscan infusion induced EKG changes of ischemia. 2. Lexiscan stress test test is negative for Lexiscan infusion induced chest pain. 3. Results of the nuclear portion of the test is as below Myocardial perfusion imaging study: Technique: The patient was injected with 10.9 millicuries of technetium 99m Cardiolite and subsequently rest SPECT Cardiolite nuclear imaging was obtained in the horizontal long, vertical long, and short axis views. The patient underwent pharmacologic [Regadenoson 0.4mg] evaluation. Please see above for details. Thepatient was injected with 33.3 millicuries of technetium 99m Cardiolite and subsequently stress SPECT Cardiolite nuclear imaging was obtained in the horizontal long, vertical long, and short axis views. A gated Cardiolite study at peak stress was obtained. Interpretation: Rest and stress SPECT Cardiolite nuclear imaging status post realignment, normalization, and attenuation correction demonstrate no evidence of significantischemia or infarction. Gated images reveal no significant regional wall motionabnormalities. The reported LVEF is 69%. Impression: 1. There is no evidence of significant ischemia or infarction. 2. Estimated ejection fraction is 69%. This note was generated with leemail software. It may contain incorrectwords, spelling, and punctuation that were not noted in checking the note beforesigning. 03/29/25 142 Date _ Jaqueline Augustine MD CC: Domenic Khan; [facility] Date Dictated: 03/29/251420 Date Transcribed: 03/29/251420 Suppression Crew Leader: ROSIE Signed [facility] Work Phone: Echo Complete W/ Contraston 03-29-2025 Echo Complete W/ Contrast [facility] Cardiovascular Services [address] [place] [address] Echo Complete W/ Contrast 03/29/25 08 MR#: [id number] Acct: [id number] Name: AGAPITO MESSER Rep #: [id number] : 1950 74 From: Jaqueline Augustine MD Attending Dr: Domenic Khan NP Status: G [facility] Ordering Dr: Satinder Jung Date: 03/29/25 Location: [facility] Sex: M C Admitted: Reason For Study Reason For Study: ABNORMAL EKG Procedure This was a 2D Doppler, Color Flow transthoracic echocardiogram. The study was technically difficult. Due to suboptimal imaging windows,. Contrast injection was performed. Exam performed in department. Left Ventricle Normal LV size. The estimated ejection fraction is 60 %. No evidence for diastolic dysfunction. No regional wall motion abnormalities noted. Right Ventricle Normal RV size. Normal systolic function. Atria The left and right atria are normal. No doppler evidence for ASD. Mitral Valve There is no mitral valve stenosis. Trivial mitral valve insufficiency. Tricuspid Valve There is no tricuspid stenosis. Unable to estimate RV systolic pressure due to inadequate jet, pulmonary artery pressure probably normal. Aortic Valve Trisinus/trileaflet aortic valve. There is no aortic stenosis. No aortic valve insufficiency. Pulmonic Valve There is no pulmonic valvular stenosis. No pulmonic valve insufficiency. Great Vessels Normal sized aortic root. Pericardium/Pleural No pericardial effusion. Medication Diluted definity 3.0ml given slow IV push to enhance endocardial definition. MMode/2D Measurements Calculations LVIDd: 4.4 cm IVSd: 1.00 cm Ao root diam: 3.3 cm LVIDs: 3.0 cm LVPWd: 1.1 cm RVDd: 2.5 cm FS: 32.4 % LAV(MOD-bp): 38.5 ml LVAd ap4: 26.7 cm2 LVAd ap2: 20.6 cm2 LAV(MOD-bp) Indexed: 18.2 ml/m2 LVLd ap4: 8.1 cm LVLd ap2: 7.0 cm LAV(MOD-sp2): 36.8 ml EDV(MOD-sp4): 75.3 ml EDV(MOD-sp2): 49.0 ml LAV(MOD-sp4): 31.3 ml EDV(sp4-el): 74.6 ml EDV(sp2-el): 50.9 ml LVAs ap4: 16.8 cm2 LVAs ap2: 11.8 cm2 LVLs ap4: 7.3 cm LVLs ap2: 5.9 cm ESV(MOD-sp4): 33.1 ml ESV(MOD-sp2): 19.5 ml ESV(sp4-el): 32.8 ml ESV(sp2-el): 20.1 ml EF(MOD-sp4): 56.0 % EF(MOD-sp2): 60.1 % EF(sp4-el): 56.1 % SV(MOD-sp4): 42.1 ml SV(MOD-sp2): 29.5 ml SV(sp4-el): 41.8 ml SI(MOD-sp4): 20.0 ml/m2 SI(MOD-sp2): 14.0 ml/m2 LA A4 area: 12.1 cm2 LA dimension(2D): 3.6 cm RA A4 area: 10.8 cm2 TAPSE: 2.3 cm Time Measurements MV dec time: 0.20 sec Doppler Measurements Calculations MV E max chetan: 78.1 cm/sec Lat Peak E' Chetan: 8.7 cm/sec Med Peak E' Chetan: 7.6 cm/sec MV A max chetan: 91.3 cm/sec E/E' lat: 9.0 E/E' med: 10.2 MV E/A: 0.86 MV V2 max: 103.5 cm/sec MV P1/2t max chetan: 89.9 cm/sec Ao V2 max: 102.9 cm/sec MV max P.3 mmHg MV P1/2t: 53.0 msec Ao max P.2 mmHg MV V2 mean: 65.4 cm/sec MV dec slope: 497.0 cm/sec2 Ao V2 mean: 73.3 cm/sec MV mean P.9 mmHg MVA(P1/2t): 4.2 cm2 Ao mean P.4 mmHg MV V2 VTI: 24.8 cm Ao V2 VTI: 24.2 cm AV (velocity ratio): 0.71 LV V1 max: 68.8 cm/sec PA V2 max: 85.5 cm/sec TR max chetan: 248.9 cm/sec LV V1 max P.9 mmHg PA V2 mean: 59.6 cm/sec TR max P.8 mmHg LV V1 mean P.0 mmHg PA V2 VTI: 19.3 cm LV V1 mean: 47.7 cm/sec LV V1 VTI: 17.1 cm ECHO/Echo Complete W/ Contrast Interpretation Summary The estimated ejection fraction is 60 %. No evidence for diastolic dysfunction. Ordering Physician: Satinder Jung Referring Physician: Domenic Khan Performed By: Mari Huntley RDCS, RVT 03/29/25 1340 Date Jaqueline Augustine MD CC: MARIZA Jung; Domenic CARTER NP-Ochoa Khan; [facility] Date Dictated: 03/29/25812 Date Transcribed: 03/29/251339 Suppression Crew Leader: Signed Normal [facility] Echocardiogram study reportO rdered By: Jaqueline Augustine on 03-29-2025 Study report [facility] Cardiovascular Services [address] [place] [address]. [place] [address] Echo Complete W/ Contrast 03/29/25812 MR#: [id number] Acct: [id number] Name: AGAPITO MESSER Rep #:[id number] : 1950 74 From: Jaqueline fitch MD Attending Dr: Domenic Khan NPC Status: REG CLI Ordering Dr: Satinder Jung Date: 03/29/25 Location: [facility] Sex: M C Admitted: Reason For Study Reason For Study: ABNORMAL EKG Procedure This was a 2D Doppler, Color Flow transthoracic echocardiogram. The study was technically difficult. Due to suboptimal imaging windows,. Contrast injection was performed. Exam performed in department. Left Ventricle Normal LV size. The estimated ejection fraction is 60 %. No evidence for diastolic dysfunction. No regional wall motion abnormalities noted. Right Ventricle Normal RV size. Normal systolic function. Atria The left and right atria are normal. No doppler evidence for ASD. Mitral Valve There is no mitral valve stenosis. Trivial mitral valve insufficiency. Tricuspid Valve There is no tricuspid stenosis. Unable to estimate RV systolic pressure due to inadequate jet, pulmonary artery pressure probably normal. Aortic Valve Trisinus/trileaflet aortic valve. There is no aortic stenosis. No aortic valve insufficiency. Pulmonic Valve There is no pulmonic valvular stenosis. No pulmonic valve insufficiency. Great Vessels Normal sized aortic root. Pericardium/Pleural No pericardial effusion. Medication Diluted definity 3.0ml given slow IV push to enhance endocardial definition. MMode/2D Measurements & Calculations LVIDd: 4.4 cm IVSd: 1.00 cm Ao root diam: 3.3 cm LVIDs: 3.0 cm LVPWd: 1.1 cm RVDd: 2.5 cm FS: 32.4 % __ LAV(MOD-bp): 38.5 ml LVAd ap4: 26.7 cm2 LVAd ap2: 20.6 cm2 LAV(MOD-bp) Indexed: 18.2 ml/m2 LVLd ap4: 8.1 cm LVLd ap2: 7.0 cm LAV(MOD-sp2): 36.8 ml EDV(MOD-sp4): 75.3 ml EDV(MOD-sp2): 49.0 ml LAV(MOD-sp4): 31.3 ml EDV(sp4-el): 74.6 ml EDV(sp2-el): 50.9 ml LVAs ap4: 16.8 cm2 LVAs ap2: 11.8 cm2 LVLs ap4: 7.3 cm LVLs ap2: 5.9 cm ESV(MOD-sp4): 33.1 ml ESV(MOD-sp2): 19.5 ml ESV(sp4-el): 32.8 ml ESV(sp2-el): 20.1 ml EF(MOD-sp4): 56.0 % EF(MOD-sp2): 60.1 % EF(sp4-el): 56.1 % SV(MOD-sp4): 42.1 ml SV(MOD-sp2): 29.5 ml SV(sp4-el): 41.8 ml SI(MOD-sp4): 20.0 ml/m2 SI(MOD-sp2): 14.0 ml/m2 LA A4 area: 12.1 cm2 LA dimension(2D): 3.6 cm RA A4 area: 10.8 cm2 TAPSE: 2.3 cm Time Measurements MV dec time: 0.20 sec Doppler Measurements & Calculations MV E max chetan: 78.1 cm/sec Lat Peak E' Chetan: 8.7 cm/sec Med Peak E' Chetan: 7.6 cm/sec MV A max chetan: 91.3 cm/sec E/E' lat: 9.0 E/E' med: 10.2 MV E/A: 0.86 MV V2 max: 103.5 cm/sec MV P1/2t max chetan: 89.9 cm/sec Ao V2 max: 102.9 cm/sec MV max P.3 mmHg MV P1/2t: 53.0 msec Ao max P.2 mmHg MV V2 mean: 65.4 cm/sec MV dec slope: 497.0 cm/sec2 Ao V2 mean: 73.3 cm/sec MV mean P.9 mmHg MVA(P1/2t): 4.2 cm2 Ao mean P.4 mmHg MV V2 VTI: 24.8 cm Ao V2 VTI: 24.2 cm AV (velocity ratio): 0.71 LV V1 max: 68.8 cm/sec PA V2 max: 85.5 cm/sec TR max chetan: 248.9 cm/sec LV V1 max P.9 mmHg PA V2 mean: 59.6 cm/sec TR max P.8 mmHg LV V1 mean P.0 mmHg PA V2 VTI: 19.3 cm LV V1 mean: 47.7 cm/sec LV V1 VTI: 17.1 cm ECHO/Echo Complete W/ Contrast Interpretation Summary The estimated ejection fraction is 60 %. No evidence for diastolic dysfunction. Ordering Physician: Satinder Jung Referring Physician: Domenic Khan Performed By: Mari Huntley, RDCS, RVT 03/29/25 1340 Date _ Jaqueline Augustine MD CC: MARIZA Jung; Domenic Khan; [facility] ~ Date Dictated: 03/29/25 0813 Date Transcribed: 03/29/25 134 Suppression Crew Leader: Signed [facility] Work Phone: Stress Reporton 03-29-2025 Stress Report [facility] Cardiovascular Services [address] [place] [address] MR#: [id number] Acct: [id number] Name: AGAPITO MESSER HITESH Rep #: [id number] : 1950 74 From: Jaqueline Augustine MD Primary Care: [facility] Status: REG CLI Referring Dr: Domenic Khan NP Sex: M C Stress Test Report Date: 03/29/2025 Procedure: Pharmacologic stress nuclear imaging study Indications: Abnormal EKG, preop evaluation Consent: Per the patient Procedure: The patient underwent pharmacologic (Regadenoson) evaluation with a peak heart rate of 103 beats per minute (70%predicted maximal heart rate) and a peak blood pressure of 132/78 mmHg. The baseline ECG demonstrated normal sinus rhythm. EKG during lexiscan infusion revealed no significant ischemic changes. EKG post infusion revealed no significant ischemic changes [There were no cardiac dysrhythmias pretest, during pharmacologic infusion, or recovery]. [There was no complaint of chest discomfort during pharmacologic infusion or recovery]. The examination was discontinued secondary to completion of protocol. Impression: 1. Lexiscan stress test test is negative for Lexiscan infusion induced EKG changes of ischemia. 2. Lexiscan stress test test is negative for Lexiscan infusion induced chest pain. 3. Results of the nuclear portion of the test is as below Myocardial perfusion imaging study: Technique: The patient was injected with 10.9 millicuries of technetium 99m Cardiolite and subsequently rest SPECT Cardiolite nuclear imaging was obtained in the horizontal long, vertical long, and short axis views. The patient underwent pharmacologic [Regadenoson 0.4mg] evaluation. Please see above for details. The patient was injected with 33.3 millicuries of technetium 99m Cardiolite and subsequently stress SPECT Cardiolite nuclear imaging was obtained in the horizontal long, vertical long, and short axis views. A gated Cardiolite study at peak stress was obtained. Interpretation: Rest and stress SPECT Cardiolite nuclear imaging status post realignment, normalization, and attenuation correction demonstrate no evidence of significant ischemia or infarction. Gated images reveal no significant regional wall motion abnormalities. The reported LVEF is 69%. Impression: 1. There is no evidence of significant ischemia or infarction. 2. Estimated ejection fraction is 69%. This note was generated with A Smarter City[employer] software. It may contain incorrect words, spelling, and punctuation that were not noted in checking the note before signing. 03/29/251424 Date Jaqueline Augustine MD CC: Domenic Khan; [facility] Date Dictated: 03/29/251420 Date Transcribed: 03/29/251420 Suppression Crew Leader: NN Signed Normal [facility] Bedside Glucoseon 02-19-2025 FINGERSTICK GLU 132 mg/dL High 74-106 [facility] Comment on above: Result Comment: ARLYN MARTIN OF PATIENT CARE PER NURSING PROTOCOL Performed By: #### L 501.080 #### [facility] [address] [facility] [address] [place], [address] EGD Reporton 02-19-2025 EGD Report [facility] Medical Records Department [address] [place] [address] EGD Report MR#: [id number] Acct: [id number] Name: AGAPITO MESSER Rep #: [id number] : 1950 74 From: Tonio Rogers DO PCP: [facility] Status:REG [facility] Patient Name: Agapito Messer Procedure Date: 02/19/2025 6:20 AM Date of : 1950 Age: 74 Procedure: Upper GI endoscopy Indications: Epigastric abdominal pain, Dysphagia Providers: Tonio Rogers DO Referring MD: [facility] Medicines: Monitored Anesthesia Care Patient Profile: [...] pathology results. Procedure Code(s): --- Professional --- 28392, Esophagogastroduodenos copy, flexible, transoral; with insertion of guide wire followed by passage of dilator(s) through esophagus over guide wire 62460, 59,51, Esophagogastroduodenos copy, flexible, transoral; with biopsy, single or multiple CPT copyright 2021 [employer] [employer]. All rights reserved. The codes documented in this report are preliminary and upon stove mechanic review may be revised to meet current compliance requirements. Tonio Rogers DO 02/19/2025 7:12:47 AM This report has been signed electronically. Number of Addenda: 0 Note Initiated On: 02/19/2025 6:20 AM 02/19/25 0713 Date Ra (more content not included)... Normal [facility] deOrdered By: Tonio Rogers on 02-19-2025 Glucose [Mass/Vol] 132 mg/dL High 74-106 [facility] Comment on above: MANAGEMENT OF PATIEN T CARE PER NURSING PROTOCOL MR/POSTOP.ANEon 02-19-2025 MR/POSTOP.ANE [facility] Medical Records Department [address] [place] [address] Anesthesia Postop Eval I 02/19/25711 MR#: [id number] Acct: [id number] Name: TRUPTIAGAPITOCORBY ZAIDI Rep #: [id number] : 1950 74 From: Nelson Desai PCP: [facility] Status:REG SDC Y Race: C Location: [place] [address] Anesthesia: Postop Eval I Current Vital Signs [...] Nelson Collinsignmelissa Signature: Date CC: Signed Normal [facility] MR/[id number] 02-19-2025 MR/POSTOPAN2 [facility] Medical Records Department [address] [place] [address] Anesthesia Postop Eval II 02/19/25809 MR#: [id number] Acct: [id number] Name: AGAPITO MESSER Rep #: [id number] : 1950 74 From: Broderick Choudhury MD PCP: [facility] Status:DEP SDC Y Race: C Location: EN Anesthesia Postop [...] Pain Level: 0 nausea: No Vomiting: No 02/19/25809 Date Broderick Rodas Signature: Date CC: Signed Normal [facility] Surgery Specimen Level Alejandro 02-19-2025 Surgery Specimen Level IV ---- Patient Age/Sex Location Account Attending Physician ---- AGAPITO MESSER 74/M EN [id number] Tonio Rogers DO ---- Specimen: [id number] Received: 02/19/25 Status: EFRAIN Giovanna Num: [id number] Spec Type: EGD BIOPSY Subm Dr: Tonio [...] developed and their performance characteristics determined by [facility]. They may not have been cleared [...] in aggregate. Submitted in toto in A1. [facility] 02-19-2025 CPT:55965, 16242 ---- Patient Age/Sex Location Account Attending Physician ---- AGAPITO MESSER 74/M EN [id number] Tonio Rogers, DO ---- Signed (signature on file) Dr. Lizbeth Joy MD 02/26/25 1118 ---- Normal [facility] Comment on above: Performed By: #### P ALEXANDRO ####[facility] [address] [place], [address] MR/PATJoshua 02-14-2025 MR/DAVID.ASHLEY [facility] Medical Records Department [address] [place] [address] PAT - Anesthesia 02/14/25 1518 MR#: [id number] Acct: [id number] Name: AGAPITO MESSER Rep #: [id number] : 1950 74 From: Broderick Choudhury MD PCP: [place] [facility] Status:PRE SDC Y Race: C Location: EN Pre-Assessment Diagnosis/Proposed Procedure Planned Operative Procedure(s): EGD Anesthesia History Anesthesia History - front office specialist: Anesthesia History - front office specialist Hx Hospitalization No 02/14/25 14:42 Any Problems [...] take am of surgery PONV PONV - front office specialist: PONV - front office specialist Female No 02/14/25 14:42 HX of Motion Sickness No 02/14/25 14:42 HX of N/V After Surgery No 02/14/25 14:42 Non-Smoker No 02/14/25 14:42 Duration of Surgery greater No 02/14/25 14:42 than 60 minutes Number of Risk Factors PONV Score Height Weight Height Weight: Anesthesia: Height Weight Height 6 ft 12/25/24 13:03 Respiratory Assessment Respiratory Assessment - front office specialist: Respiratory Tract Infection Hx - front office specialist Hx Respiratory Tract Infection No 02/14/25 14:42 STOP Sleep Apnea STOP Sleep Apnea - front office specialist: STOP Sleep Apnea - front office specialist Hx Hypertension No 02/14/25 14:42 Hx Sleep [...] Tobacco Use History Tobacco Use History - front office specialist: Tobacco Use History - front office specialist Tobacco Use Cigarettes 09/04/20 14:54 Smoking Status Current every day smoker 02/14/25 14:42 Hx Tobacco Use Yes 02/14/25 14:42 Years Smoking Packs Smoked per Day Smoking Cessation Date was within the last 15 years Hx Smoking Cessation Date Hx Smoking Cessation Counseling Hematologic Medial History Hematologic Hx - front office specialist: 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 Specify any problems Hx of Preganancy in last 3 N/A 02/14/25 14:42 Months Nurse Filling Out Transfusion [facility] 02/14/25 14:42 Questions: Date: 02/14/25 02/14/25 14:42 Time: 14:52 02/14/25 14:42 Patient unable to answer at this time (ie. confused, unrespo /Reproduction History /Reproductive History - front office specialist: /Reproductive Hx- front office specialist Hx Now No 02/14/25 14:42 Gestational Age [...] Score 1 (more content not included)... Normal [facility] Electrocardiogram reportOrde red By: Raymon Bhakta on 02-07-2025 EKG study [facility] Cardiovascular Services [address] [place] [address] 12 Lead EKG 02/06/25 1227 MR#: [id number] Acct: [id number] Name: AGAPITO MESSER Rep #:[id number] : [...] undetermined Abnormal ECG Confirmed by Raymon Bhakta ([id number]), medical editor OLYA RODRÍGUEZ ([id number]) on 0:03:43 AM Referred By: Yoana Lion Confirmed By: Raymon Bhakta 02/07/25 1003 Date _ Raymon Bhakta MD CC: RANDALL Ontiveros; RANDALL Lee; [facility] ~ Signed [facility] Other 12 Lead EKGon 02-06-2025 12 Lead EKG [facility] Cardiovascular Services [address] [place] [address] 12 Lead EKG 02/06/25 1227 MR#: [id number] Acct: [id number] Name: AGAPITO MESSER Rep #: [id number] : 1950 74 From: Raymon Bhakta MD Attending Dr: RANDALL Ontiveros Status: REG CL I Ordering Dr: Mckenna Penn Date: 02/06/25 Location: [facility] Sex: M C Admitted: Test Reason : [...] undetermined Abnormal ECG Confirmed by Raymon Bhakta ([id number]), medical editor OLYA RODRÍGUEZ ([id number]) on 02/07/2025 10:03:43 AM Referred By: Yoana Lion Confirmed By: Raymon Bhakta 02/07/25 1003 Date Raymon Bhakta MD CC: RANDALL Ontiveros; RANDALL Lee; [facility] Signed Normal [facility] Absolute lymphocyte countOrd ered By: Mckenna Penn on 02-06-2025 Lymphocytes Auto (Unsp spec) [#/Vol] 2.86 10*3/uL 0.83-4.51 [facility] Absolute neutrophil countOrd ered By: Mckenna Penn on 02-06-2025 Neutrophils (Bld) [#/Vol] 5.1 10*3/uL 2.0-7.7 [facility] Anion gap in Serum or Plasma Ordered By: Mckenna Penn on 02-06-2025 Anion gap [Moles/Vol] 12 mmol/L 03-08 [facility] Automated lymphocyte count a s percentage of total leukocytesOrdered By: Mckenna Penn on 02-06-2025 Lymphocytes/100 WBC Auto (Unsp spec) 31.7 % 19-41 [facility] BUN/creatinine ratioOrdered By: Mckenna Fili on 02-06-2025 Urea nitrogen/Creatinine [Mass ratio] 16.9 mg/mg 10- [facility] Basic Metabolic Profile (BMP )on 02-06-2025 BUN/CRE 16.9 RATIO Normal - [facility] Comment on above: Performed By: #### L 500.2500, L501.9985, L100.0100 #### [facility] [address] [place], [address] Calcium [Mass/Vol] 8.9 mg/dL Normal 7.6-11.0 [facility] Comment on above: Performed By: #### L 500.2500, L501.9985, L100.0100 #### [facility] [address] [place], [address] Chloride [Moles/Vol] 103 mmol/L Normal 98-108 [facility] Comment on above: Performed By: #### L 500.2500, L501.9985, L100.0100 #### [facility] [address] [place], [address] CO2 [Moles/Vol] 21.3 mmol/L Normal 21.0-32.0 [facility] Comment on above: Performed By: #### L 500.2500, L501.9985, L100.0100 #### [facility] [address] [place], [address] Creatinine [Mass/Vol] 1.01 mg/dL Normal 0.70-1.20 [facility] Comment on above: Performed By: #### L 500.2500, L501.9985, L100.0100 #### [facility] [address] [place], [address] GAP 12 Normal 5-15 [facility] Comment on above: Performed By: #### L 500.2500, L501.9985, L100.0100 #### [facility] [address] [place], [address] GFR/1.73 sq M.predicted among non-blacks MDRD (S/P/Bld) [Vol rate/Area] 79 mL/min/{1.73_m2} Normal >60 [facility] Comment on above: Result Comment: mL/m in/1.73m2 CKD-EPI Creatinine Equation (2020) Performed By: #### L 500.2500, L501.9985, L100.0100 #### [facility] [address] [place], [address] Glucose [Mass/Vol] 150 mg/dL High 70-99 [facility] Comment on above: Performed By: #### L 500.2500, L501.9985, L100.0100 #### [facility] [address] [place], [address] Potassium [Moles/Vol] 4.7 mmol/L Normal 3.3-5.1 [facility] Comment on above: Result Comment: Hemo lysis present, Results??could be affected. ?? Performed By: #### L 500.2500, L501.9985, L100.0100 #### [facility] [address] [place], [address] Sodium [Moles/Vol] 136 mmol/L Normal 133-145 [facility] Comment on above: Performed By: #### L 500.2500, L501.9985, L100.0100 #### [facility] [address] [place], [address] Urea nitrogen [Mass/Vol] 17 mg/dL Normal 4-19 [facility] Comment on above: Performed By: #### L 500.2500, L501.9985, L100.0100 #### [facility] [address] [place], [address] Basophil percentageOrdered B y: Mckenna Penn on 02-06-2025 Basophils/100 WBC (Bld) 0.8 % 0-1 [facility] CBC W/Diff, Automatedon - Absolute Lymph 2.86 X10 3/uL Normal 0.83-4.51 [facility] Comment on above: Performed By: #### L 500.2500, L501.9985, L100.0100 #### [facility] [address] [place], [address] Absolute Neut 5.1 X10 3/uL Normal 2.0-7.7 [facility] Comment on above: Performed By: #### L 500.2500, L501.9985, L100.0100 #### [facility] [address] [place], [address] Basophils/100 WBC (Bld) 0.8 % Normal 0-1 [facility] Comment on above: Performed By: #### L 500.2500, L501.9985, L100.0100 #### [facility] [address] [place], [address] Eosinophils/100 WBC (Bld) 3.6 % Normal 0-5 [facility] Comment on above: Performed By: #### L 500.2500, L501.9985, L100.0100 #### [facility] [address] [place], [address] Erythrocyte distribution width (RBC) [Ratio] 14.0 % Normal 11.6-14.6 [facility] Comment on above: Performed By: #### L 500.2500, L501.9985, L100.0100 #### [facility] [address] [place], [address] Hematocrit (Bld) [Volume fraction] 44.3 % Normal 40-54 [facility] Comment on above: Performed By: #### L 500.2500, L501.9985, L100.0100 #### [facility] [address] [place], [address] Hemoglobin (Bld) [Mass/Vol] 15.2 g/dL Normal 13.0-16.5 [facility] Comment on above: Performed By: #### L 500.2500, L501.9985, L100.0100 #### [facility] [address] [place], [address] IG% 0.400 Normal 0.0-0.9 [facility] Comment on above: Result Comment: IG% - Immature Granulocytes (promyelocytes, myelocytes and metamyelocytes) > 1% indicates that a LEFT SHIFT is Present. Performed By: #### L 500.2500, L501.9985, L100.0100 #### [facility] [address] [place], [address] Lymphocytes/100 WBC (Bld) 31.7 % Normal 19-41 [facility] Comment on above: Performed By: #### L 500.2500, L501.9985, L100.0100 #### [facility] [address] [place], [address] MCH (RBC) [Entitic mass] 32.1 pg High 27.0-32.0 [facility] Comment on above: Performed By: #### L 500.2500, L501.9985, L100.0100 #### [facility] [address] [place], [address] MCHC (RBC) [Mass/Vol] 34.3 g/dL Normal 32-36 [facility] Comment on above: Performed By: #### L 500.2500, L501.9985, L100.0100 #### [facility] [address] [place], [address] MCV (RBC) [Entitic vol] 93.7 fL Normal 80-94 [facility] Comment on above: Performed By: #### L 500.2500, L501.9985, L100.0100 #### [facility] [address] [place], [address] Monocytes/100 WBC (Bld) 7.1 % Normal 0-10 [facility] Comment on above: Performed By: #### L 500.2500, L501.9985, L100.0100 #### [facility] [address] [place], [address] Neutrophils/100 WBC (Bld) 56.4 % Normal 47-70 [facility] Comment on above: Performed By: #### L 500.2500, L501.9985, L100.0100 #### [facility] [address] [place], [address] Nucleated RBC (Bld) [#/Vol] 0 10*3/uL Normal 0-5 [facility] Comment on above: Performed By: #### L 500.2500, L501.9985, L100.0100 #### [facility] [address] [place], [address] Platelet mean volume (Bld) [Entitic vol] 10.3 fL Normal 6.2-12.0 [facility] Comment on above: Performed By: #### L 500.2500, L501.9985, L100.0100 #### [facility] [address] [place], [address] Platelets (Bld) [#/Vol] 216 10*3/uL Normal 150-450 [facility] Comment on above: Performed By: #### L 500.2500, L501.9985, L100.0100 #### [facility] [address] [place], [address] RBC (Bld) [#/Vol] 4.73 10*6/uL Normal 4.6-6.2 [facility] Comment on above: Performed By: #### L 500.2500, L501.9985, L100.0100 #### [facility] [address] [place], [address] RDW SD 48.6 fl High 35.1-43.9 [facility] Comment on above: Performed By: #### L 500.2500, L501.9985, L100.0100 #### [facility] [address] [place], [address] WBC (Bld) [#/Vol] 9.0 10*3/uL Normal 4.4-11.0 [facility] Comment on above: Performed By: #### L 500.2500, L501.9985, L100.0100 #### [facility] [address] [place], [address] Carbon dioxide, total [Moles /volume] in Central venous bloodOrdered By: Mckenna Penn on 02-06-2025 CO2 [Moles/Vol] 21.3 mmol/L 21.0-32.0 [facility] Chloride assayOrdered By: Ba Penn on 02-06-2025 Chloride [Moles/Vol] 103 mmol/L 98-108 [facility] Eosinophil percentageOrdered By: Mckenna Penn on 02-06-2025 Eosinophils/100 WBC (Bld) 3.6 % 0-5 [facility] Erythrocyte distribution wid th (RBC) [Ratio]Ordered By: Mckenna Penn on 02-06-2025 Erythrocyte distribution width (RBC) [Entitic vol] 48.6 fL High 35.1-43.9 [facility] Erythrocyte distribution wid th ratioOrdered By: Mckenna Penn on 02-06-2025 Erythrocyte distribution width (RBC) [Ratio] 14.0 % 11.6-14.6 [facility] Erythrocyte distribution wid th standard deviationOrdered By: Mckenna Penn on 02-06-2025 Erythrocyte distribution width (RBC) [Ratio] 48.6 fl High 35.1-43.9 [facility] GFR/1.73 sq M.predicted mo g non-blacks MDRD (S/P/Bld) [Vol rate/Area]Ordered By: Mckenna Penn on 02-06-2025 Estimated GFR (MDRD) Non-Af Amer 79 >60 [facility] Comment on above: mL/min/1.73m2 CKD-EP I Creatinine Equation (2020) Glomerular filtration rate ( GFR) estimation/1.73 sq m using serum, plasma, or whole bOrdered By: Mckenna Penn on 02-06-2025 GFR/1.73 sq M.predicted among non-blacks MDRD (S/P/Bld) [Vol rate/Area] 79 mL/min/{1.73_m2} >60 [facility] Comment on above: mL/min/1.73m2 CKD-EP I Creatinine Equation (2020) Hematocrit Auto (Bld) [Volum e fraction]Ordered By: Mckenna Penn on 02-06-2025 Hematocrit (Bld) [Volume fraction] 44.3 % 40-54 [facility] Hemoglobin A1con 02-06-2025 HbA1c (Bld) [Mass fraction] 8.0 % High <=5.6 [facility] Comment on above: Result Comment: Norm al < 5.7 % Prediabetic 5.7 - 6.4 % Diabetic >or= 6.5 % Please note range changes. Performed By: #### L 500.2500, L501.9985, L100.0100 ####[facility] [address] [place], [place], [address] Hemoglobin A1c percentageOrd ered By: Mckenna Penn on 02-06-2025 HbA1c (Bld) [Mass fraction] 8.0 % High <5.7 [facility] Comment on above: Normal < 5.7 % Predi abetic 5.7 - 6.4 % Diabetic >or= 6.5 % Please note range changes. Hemoglobin measurementOrdere d By: Mckenna Penn on 02-06-2025 Hemoglobin (Bld) [Mass/Vol] 15.2 g/dL 13.0-16.5 [facility] Immature granulocytes/100 WB C Auto (Bld)Ordered By: Mckenna Penn on 02-06-2025 Immature granulocytes/100 WBC (Bld) 0.400 % 0.0-0.9 [facility] Comment on above: IG% - Immature Granu locytes (promyelocytes, myelocytes and metamyelocytes) > 1% indicates that a LEFT SHIFT is Present. Lymphocytes Auto (Unsp spec) [#/Vol]Ordered By: [facility] 02-[facility]-2025 Lymphocytes (Bld) [#/Vol] 2.86 10*3/uL 0.83-4.51 [facility] Lymphocytes/100 WBC Auto (Un sp spec)Ordered By: [facility] on 02-06-2025 Lymphocytes/100 WBC (Bld) 31.7 % 19-41 [facility] MCV (mean corpuscular volume ) determinationOrdered By: [facility] on 02-06-2025 MCV (RBC) [Entitic vol] 93.7 fL 80-94 [facility] Mean corpuscular hemoglobin (MCH) determinationOrdered By: [facility] on 02-06-2025 MCH (RBC) [Entitic mass] 32.1 pg High 27.0-32.0 [facility] Mean corpuscular hemoglobin concentration (MCHC) determinationOrdered By: [facility] on 02-06-2025 MCHC (RBC) [Mass/Vol] 34.3 g/dL 32-36 [facility] Mean platelet volume determi nationOrdered By: [facility] on 02-06-2025 Platelet mean volume (Bld) [Entitic vol] 10.3 fL 6.2-12.0 [facility] Monocyte percentageOrdered B y: [facility] on 02-06-2025 Monocytes/100 WBC (Bld) 7.1 % 0-10 [facility] Neutrophil percentageOrdered By: [facility] on 02-06-2025 Neutrophils/100 WBC (Bld) 56.4 % 47-70 [facility] Nucleated red blood cell per centageOrdered By: [facility] on 02-06-2025 Nucleated RBC/100 WBC (Bld) [Ratio] 0 % 0-5 [facility] Platelet countOrdered By: Ba Penn on 02-06-2025 Platelets (Bld) [#/Vol] 216 10*3/uL 150-450 [facility] Potassium (Unsp spec) [Mass/ Vol]Ordered By: Mckenna Penn on 02-06-2025 Potassium [Moles/Vol] 4.7 mmol/L 3.3-5.1 [facility] Comment on above: Hemolysis present, R esults could be affected. Potassium measurement (mass/ volume)Ordered By: Mckenna Penn on 02-06-2025 Potassium (Unsp spec) [Mass/Vol] 4.7 mmol/L 3.3-5.1 [facility] Comment on above: Hemolysis present, R esults could be affected. RBC Auto (Bld) [#/Vol]Ordere d By: Mckenna Penn on 02-06-2025 RBC (Bld) [#/Vol] 4.73 10*6/uL 4.6-6.2 [facility] Serum creatinine measurement (mass/volume)Ordered By: Mckenna Penn on 02-06-2025 Creatinine [Mass/Vol] 1.01 mg/dL 0.70-1.20 [facility] Serum glucose measurement (m ass/volume)Ordered By: Mckenna Penn on 02-06-2025 Glucose [Mass/Vol] 150 mg/dL High 70-99 [facility] Serum or plasma calcium tri urement (mass/volume)Ordered By: Mckenna Penn on 02-06-2025 Calcium [Mass/Vol] 8.9 mg/dL 7.6-11.0 [facility] Serum or plasma urea nitroge n measurement (mass/volume)Ordered By: Mckenna Penn on 02-06-2025 Urea nitrogen [Mass/Vol] 17 mg/dL 4-19 [facility] Sodium levelOrdered By: Keila Penn on 02-06-2025 Sodium [Moles/Vol] 136 mmol/L 133-145 [facility] White blood cell (WBC) count Ordered By: Mckenna Penn on 02-06-2025 WBC (Bld) [#/Vol] 9.0 10*3/uL 4.4-11.0 [facility] Modified Barium Swallow Stud yon 01-19-2025 Modified Barium Swallow Study [facility] Speech Pathology [address] [place] [address] Modified Barium Swallow Study MR#: [id number] Acct: [id number] Name: AGAPITO MESSER Rep #: [id number] : 1950 74 From: Kathryn Montero M.A., [facility]-[employer]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 Medical History: Patient was referred by Luz Bacon CNP at [facility]. 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 PMH: Traumatic [...] swallow: Result: 1= does not enter airway [place] Thick Liquid via small single sip: cup: [...] apprx aryt-ep (more content not included)... Normal [facility] Gastric Emptying Studyon Gastric Emptying Study [facility] Imaging Services [address], [place] [address] Gastric Emptying Study MR#: [id number] Acct: [id number] Name: AGAPITO MESSER Rep #: [id number] : 1950 M 74 From: Cooper longoria MD PCP: [facility] Status: REG CLI Study: Gastric Emptying Study Date of Exam: 01/11/25 Exam# [id number] Ordering Dr: Luz Bacon PROCEDURE: GASTRIC EMPTYING [...] IMPRESSION: Normal gastric emptying examination. Reading Location: [facility]- CC: MARIZA Bacon; [facility] Suppression Crew Leader: Signed Normal [facility] Abdomen/Pelvis without Conto n 01-02-2025 Abdomen/Pelvis without Cont [facility] Imaging Services [address], [place] [address] Abdomen/Pelvis without Cont MR#: [id number] Acct: [id number] Name: AGAPITO MESSER Rep #: [id number] : 1950 M 74 From: Cooper longoria MD PCP: [facility] Status: REG CLI Study: Abdomen/Pelvis without Cont Date of Exam: 12/23 11/18 Exam# [id number] Ordering Dr: Rey Wallace MD PROCEDURE: ABDOMEN/PELVIS [...] use of iterative reconstruction technique). Reading Location: [facility]-1 CC: Dr. Rey Wallace MD; [facility] Suppression Crew Leader: Signed Normal [facility] PSA, total screeningOrdered By: Shakira Dee on 01-01-2025 Prostate Specific Antigen Screen 0.25 ng/mL 0.02-4.00 [facility] Comment on above: This test was perfor [...] 01-01-2025 PSA,TOT SCREEN 0.25 ng/mL Normal 0.02-4.00 [facility] Comment on above: Result Comment: This test [...] baseline values. Performed By: #### L 501.9910 ####[facility] [id number] [facility] [place], [address] L/S Spine Bending Flex/[place] 12-25-2024 L/S Spine Bending Flex/Ext [facility] Imaging Services [address] [place] [address] L/S Spine Bending Flex/Ext MR#: [id number] Acct: [id number] Name: AGAPITO MESSER Rep #: [id number] : 1950 M 74 From: Alcides Martinez MD PCP: [facility] Status: DEP AMB Study: L/S Spine Bending Flex/Ext Date of Exam: 12/25 Exam# [id number] Ordering Dr: Tori Hernandez EXAM: XR Lumbosacral [...] findings in the lumbar spine. Reading [facility] CC: RANDALL Adorno; [facility] Suppression Crew Leader: Signed Normal [facility] Orthopedic Visit Reporton Orthopedic Visit Report [facility] [address] [place] [address] OFFICE VISIT Date of Service: 12/25/24 MR#: [id number] Acct: [id number] Name: AGAPITO MESSER Rep #: [id number] : 1950 Provider: Dr. Marcos Archer MD Age/Sex: 74/M Location: [facility] Status: Signed Intake Vital Signs 12/20/22 10:38 [...] did do PT 10 years ago at [facility] but he had to stop as it [...] applicable) CC: Dr. Kumar Bro MD Normal [facility] Gastroenterology Visit Repor ton 12-18-2024 Gastroenterology Visit Report [facility] Gastroenterology [address] [place] [address] OFFICE VISIT Date of Service: 12/18/24 MR#: [id number] Acct: [id number] Name: AGAPITO MESSER Rep #: [id number] : 1950 Provider: MARIZA spring Age/Sex: 74/M Location: [facility] [place] [place] Status: Signed Intake Vital Signs 12/20/22 10:38 [...] any questions or concerns at this time. [facility] Medical History Traumatic amputation of [...] to the office today for establishment with [facility] for difficulty swallowing with a history having [...] water at [employer], asbestos and [employer] [place]. He reports some difficulty chewing due to [...] (small, frequent, moist bites); No itchy eyes John/Lymp Hematologic/Lymphatic: Positive for easy bruising; No easy bleeding Exam Const General: cooperative, healthy appearing, comfortable and no acute distress Nutritional Appearance: average body habitus Orientation: alert an (more content not included)... Normal [facility] 11-15-2024 [facility] Telephone ([facility]) AGAPITO MESSER ([id number]) 1950 M Date Time Provider Department 11/15/24 [facility] During your visit today, we recorded the [...] 100 mg capsule 100 mg. - omega 9-qdk-nnq-fish oil (FISH OIL) 100-160-1,000 mg cap Take [...] Status:Closed by LLUVIA ROGER on 11/15/[address] [facility] CNOVon 11-14-2024 CNOV Office Visit ([facility]WSTR ) AGAPITO MESSER ([id number]) 1950 M Date Time Provider Department 11/14/24 1:30 PM [facility] [facility] During your visit today, we recorded [...] - Decongestants: Topical spray: Oxymetazoline (Afrin? Nasal [place]); limit to 3-4 days maximum Oral medication: [...] depression, anxiety, and TIA who presents to [facility] care today for evaluation of cough, [...] Pulmonary: Effor (more content not included)... Normal [facility] COVID AND INFLUENZA A/B AND RSV PCR, ROUTINEon 11-14-2024 SARS-CoV-2 (COVID-19) RNA ISABEL+probe Ql (Unsp spec) SARS-COV-2 (AGENT OF COVID-19) RNA: Not detected INFLUENZA A RNA: Not detected INFLUENZA B RNA: Not detected RESPIRATORY SYNCYTIAL VIRUS (RSV) RNA: Not detected Normal [facility] Comment on above: Performed By: #### C VFLRS #### [facility] CLIA [id number] [address] [place], [place] [address] [address] [place] Spine Lumbar (Routine)on Spine Lumbar (Routine) [facility] Imaging Services [address] [place] [address] Spine Lumbar (Routine) MR#: [id number] Acct: [id number] Name: AGAPITO MESSER Rep #: [id number] : 1950 M 73 From: Gabriela vo MD PCP: [facility] Status: REG CLI Study: Spine Lumbar (Routine) Date of Exam: 09/26/24 Exam# [id number] Ordering Dr: Larisa Leal [id number] HISTORY: RT FOOT DROP, low back pain [...] Brown MD at 14:40 EST , CC: [facility] Suppression Crew Leader: Signed Normal [facility] CT THORAX SCREENING W/O CONT [facility] 05-16-2024 CT THORAX SCREENING W/O CONTRAST ORIGINAL [...] Sign Date: 05/16/2024 11:44:14 AM Ordering Provider: ELO REFERRING [facility] OV[facility] 04-10-2024 CN Office Visit ([facility] ) AGAPITO MESSER ([id number]) 1950 M Date Time Provider Department 04/10/24 12:15 PM KUMAR OLIVARES [facility] During your visit today, we recorded the following information about you: Temperature Pulse Respiration Blood pressure 98.2 degrees 125/minute 17/minute 132/62 Weight 85.1 kg Kumar Olivares APRN.SPLIT LEATHER DEPARTMENT SUPERVISOR 04/10/2024 12:40 PM Signed Subjective HPI Nontoxic-appearing [...] (COLACE) 100 mg capsule 100 mg. omega 7-cyx-elz-fish oil (FISH OIL) 100-160-1,000 mg cap Take [...] is a (more content not included)... Normal [facility] LABORATORYOrdered By: SYSTEM SYSTEM on 12-23-2023 Prostate specific Ag [Mass/Vol] 0.27 ng/mL Normal 0.00 - 4.00 ng/mL AO ADM SS PSAon 12-23-2023 Prostate Specific Antigen 0.27 ng/mL Normal 0.00-4.00 [facility] Comment on above: Performed By: #### P #### [facility] [address], [place] [address] XR Chest 2 Viewson EXAMINATION: XR CHES [...] No evidence of active opacities. MACRO: None [facility] Radiology Study observation (narrative) [facility] XR Chest 2 ViewsOrdered By: Gene Goldsmith on 06-15-2023 [facility] Work Phone: CT LD LUNG SCREENINGon 03-31 CT LD LUNG SCREENING AGAPITO MESSER Ma [id number] Ordering physician: Domenic Khan LOC:CAT [id number] Attending physician: Domenic Khan 1950 72 DOS: 03/29/23 Acc#: [id number] Exam/Proc: CT LD LUNG SCREENING Dept: COMPUTED [...] FILE Electronically Signed Date/Time: 03/31/231910 Dictated Date/time: 03/31/231907 CC: [facility] Glucose Glucometer (BldC) [M ass/Vol]Ordered By: Dr. Flores on 12-20-2022 Glucose [Mass/Vol] 250 mg/dL 74-106 [facility] Comment on above: MANAGEMENT OF PATIEN T CARE PER NURSING PROTOCOL XR CHEST 2V FRONTAL/LATon [facility] XR Chest PA and Lateralon IMPRESSION: No acute radiographic abnormality. Suppression Crew Leader: CALEB Transcribe Date/Time: Dec 16 2022 11:20A Dictated by : BRANDEN SCHULTZ MD This examination was interpreted and the report reviewed and electronically signed by: BRANDEN SCHULTZ MD on Dec 16 2022 11:21AM [facility] DIVISION OF RADIOLOGY * * *Final Report* [...] right humeral head. DIVISION OF RADIOLOGY Provider, [facility] - 12/16/2022 * * *Final Report* * [...] head. IMPRESSION IMPRESSION: No acute radiographic abnormality. Suppression Crew Leader: PSCB Transcribe Date/Time: Dec 16 2022 11:20A Dictated by : BRANDEN SCHULTZ MD This examination was interpreted and the report reviewed and electronically signed by: BRANDEN SCHULTZ MD on Dec 16 2022 11:21AM EST [facility] Radiology Study observation (narrative) Moise rios [facility] XR Chest PA and LateralOrder ed By: Ccf Provider on 12-16-2022 [facility] LABORATORYOrdered By: Mini Dee on 11-17-2022 [...] Dr. Wallace on 09-21-2022 Color (Unsp spec) [facility] - Miscellaneous t estsOrdered By: Dr. Wallace on 09-21-2022 Service comment (Unsp spec) [Interp] See comment [facility] Comment on above: Physician questions regarding Calculi Analysis contact [facility] at: [phone]. Calculi report will follow via computer, mail or auto glass worker delivery. Measurement of weight of sto neOrdered By: Dr. Wallace on 09-21-2022 Weight (Stone) 50 mg [facility] No Panel InformationOrdered By: Dr. Wallace on 09-21-2022 Stone Analysis (T) See comment [facility] Comment on above: Percentage (Represen ts the % composition) Stone Calcium Oxalate Monohydrate 100 % [facility] Origin of StoneOrdered By: Larisa Wallace on 09-21-2022 Origin Nom (Stone) Not Provided [facility] Size of stoneOrdered By: Dr. Wallace on 09-21-2022 Size (Stone) [Entitic vol] 4x4 mm [facility] Comment on above: Multiple pieces rece ived. Dimensions of the largest piece reported. Thin prep Papanicolaou smear with manual screeningOrdered By: Dr. Wallace on 09-21-2022 Thin prep Papanicolaou smear with manual screening See comment [facility] Comment on above: Photograph will foll ow under a separate cover. GLUCOSE, BLOOD (POC)on 09-18 Glucose [Mass/Vol] 123 mg/dL Abnormal 74 - 99 mg/dL [facility] UA DIP, URINE (POC)on 2021 BILIRUBIN UA (POCT) Negative Negative [facility] CLARITY UA (POCT) Slightly Cloudy Cl [facility] COLOR UA (POCT) Yellow [facility] GLUCOSE UA (POCT) >=1000 Abnormal Negative mg/dL [facility] HEMOGLOBIN/BLOOD UA (POCT) Negative Negative [facility] KETONE UA (POCT) Trace Negative mg/dL [facility] LEUKOCYTES UA (POCT) Negative Negative [facility] NITRITE UA (POCT) Negative Negative [facility] PH UA (POCT) 5.5 4.5 - 8.0 [facility] Protein Ql (U) Negative Negative mg/dL [facility] SPECIFIC GRAVITY UA (POCT) 1.025 1.005 - 1.030 [facility] UROBILINOGEN UA (POCT) 0.2 E.U./dL Ksenia l E.U./dL [facility] Absolute lymphocyte countOrd ered By: Dr. Griffin on 09-15-2022 Lymphocytes Auto (Unsp spec) [#/Vol] 4.21 10*3/uL 0.83-4.51 [facility] Basophil percentageOrdered B y: ED PROVIDER on 09-15-2022 Basophil percentage 0 SEEN /hpf 0-5 [facility] Basophil percentageOrdered B y: Dr. Griffin on 09-15-2022 Basophils/100 WBC (Bld) 0.5 % 0-1 [facility] Chloride [Moles/Vol] 108 mmol/L 98-107 [facility] Eosinophils/100 WBC (Bld) 3.0 % 0-5 [facility] Glucose [Mass/Vol] 204 mg/dL 74-106 [facility] Comment on above: Glucose result great er than or equal to 200 mg/dLsuggests DIABETES MELLITUS per A.D.A. criteria. Neutrophils (Bld) [#/Vol] 4.8 10*3/uL 2.0-7.7 [facility] Neutrophils/100 WBC (Bld) 47.1 % 47-70 [facility] Potassium [Moles/Vol] 4.4 mmol/L 3.5-5.1 [facility] Sodium [Moles/Vol] 140 mmol/L 136-145 [facility] WBC (Bld) [#/Vol] 10.2 10*3/uL 4.4-11.0 [facility] Bilirubin Test strip Ql (U)O rdered By: ED PROVIDER on 09-15-2022 Bilirubin Ql (U) Negative Negative [facility] Blood erythrocytes count (nu mber/volume)Ordered By: Dr. Griffin on 09-15-2022 RBC (Bld) [#/Vol] 5.24 10*6/uL 4.6-6.2 [facility] Blood hemoglobin measurement (mass/volume)Ordered By: Dr. Griffin on 09-15-2022 Hemoglobin (Bld) [Mass/Vol] 16.4 g/dL 13.0-16.5 [facility] Blood lymphocytes/100 leukoc ytesOrdered By: Dr. Griffin on 09-15-2022 Lymphocytes/100 WBC (Bld) 41.4 % 19-41 [facility] Blood monocytes/100 leukocyt esOrdered By: Dr. Griffin on 09-15-2022 Monocytes/100 WBC (Bld) 7.6 % 0-10 [facility] Blood platelet mean volumeOr dered By: Dr. Griffin on 09-15-2022 Platelet mean volume (Bld) [Entitic vol] 10.4 fL 6.2-12.0 [facility] Determination of erythrocyte mean corpuscular volume (MCV)Ordered By: Dr. Griffin on 09-15-2022 MCV (RBC) [Entitic vol] 93.7 fL 80-94 [facility] Hematocrit Auto (Bld) [Volum e fraction]Ordered By: Dr. Griffni on 09-15-2022 Hematocrit (Bld) [Volume fraction] 49.1 % 40-54 [facility] Ketones Test strip Ql (U)Ord ered By: ED PROVIDER on 09-15-2022 Ketones Ql (U) 5 mg/dl Negative [facility] Laboratory - Chemistry and C hemistry - challengeOrdered By: Dr. Griffin on 09-15-2022 CO2 [Moles/Vol] 26.0 mmol/L 21.0-32.0 [facility] Urea nitrogen/Creatinine [Mass ratio] 13.9 mg/mg 10-20 [facility] Laboratory - Hematology and Cell countsOrdered By: Dr. Griffin on 09-15-2022 Erythrocyte distribution width (RBC) [Entitic vol] 47.7 fL 35.1-43.9 [facility] Erythrocyte distribution width (RBC) [Ratio] 13.7 % 11.6-14.6 [facility] Immature granulocytes/100 WBC (Bld) 0.400 % 0.0-0.9 [facility] Comment on above: IG% - Immature Granu locytes (promyelocytes, myelocytes and metamyelocytes) > 1% indicates that a LEFT SHIFT is Present. MCH (RBC) [Entitic mass] 31.3 pg 27.0-32.0 [facility] Nucleated RBC/100 WBC (Bld) [Ratio] 0 % 0-5 [facility] MCHC Auto (RBC) [Mass/Vol]Or dered By: Dr. Griffin on 09-15-2022 MCHC (RBC) [Mass/Vol] 33.4 g/dL 32-36 [facility] Mucus LM Ql (Urine sed)Order ed By: ED PROVIDER on 09-15-2022 Mucus Ql (Urine sed) 0 SEEN /hpf [facility] Nitrite Test strip Ql (U)Ord ered By: ED PROVIDER on 09-15-2022 Nitrite Ql (U) Negative Negative [facility] No Panel InformationOrdered By: Dr. Griffin on 09-15-2022 Estimated Creatinine Clearance Calc 61.84 ml/min [facility] Estimated GFR (MDRD) Amer 75 mL/min >60 [facility] Comment on above: GFR Calc Estimated GFR (MDRD) Non-Af Amer 62 mL/min >60 [facility] Comment on above: Non- GFR Calc Platelets bldOrdered By: Dr. Griffin on 09-15-2022 Platelets (Bld) [#/Vol] 186 10*3/uL 150-450 [facility] Protein Test strip Ql (U)Ord ered By: ED PROVIDER on 09-15-2022 Protein Ql (U) Negative Negative [facility] Serum or plasma calcium tri urement (mass/volume)Ordered By: Dr. Griffin on 09-15-2022 Calcium [Mass/Vol] 9.6 mg/dL 8.5-10.1 [facility] Serum or plasma creatinine m easurement (mass/volume)Ordered By: Dr. Griffin on 09-15-2022 Creatinine [Mass/Vol] 1.22 mg/dL 0.70-1.30 [facility] Comment on above: The validity of the calculated GFR & GFRAA in patients over 70 years has not been determined. Clinical correlation is essential. Serum or plasma urea nitroge n measurement (mass/volume)Ordered By: Dr. Griffin on 09-15-2022 Urea nitrogen [Mass/Vol] 17 mg/dL 7-18 [facility] Squamous epithelial cells de tection in urine sediment by light microscopyOrdered By: ED PROVIDER on 09-15-2022 Epithelial cells.squamous LM Ql (Urine sed) 0 SEEN /hpf 0-5 [facility] Thin prep Papanicolaou smear with manual screeningOrdered By: Dr. Griffin on 09-15-2022 Thin prep Papanicolaou smear with manual screening 6 5-15 [facility] Urine blood detectionOrdered By: ED PROVIDER on 09-15-2022 RBC Ql (U) 250 /ul Negative [facility] RBC Ql (U) 10-25 SEEN /hpf 0-5 [facility] Urine clarityOrdered By: ED PROVIDER on 09-15-2022 Clarity (U) Clear Clear [facility] Urine color determinationOrd ered By: ED PROVIDER on 09-15-2022 Color (U) Yellow Yellow [facility] Urine glucose detectionOrder ed By: ED PROVIDER on 09-15-2022 Glucose Ql (U) 1000 mg/dl Normal [facility] Urine leukocyte esterase det ection by dipstickOrdered By: ED PROVIDER on 09-15-2022 Leukocyte esterase Test strip Ql (U) Negative Negative [facility] Urine pHOrdered By: ED PROVI FRANCISCA on 09-15-2022 pH (U) 5.0 [pH] 5.0 - 8.0 [facility] Urine sediment bacteria coun t by microscopy (number/high power field)Ordered By: ED PROVIDER on 09-15-2022 Bacteria LM.HPF (Urine sed) [#/Area] 0 /[HPF] None Seen [facility] Urine specific gravity measu rementOrdered By: ED PROVIDER on 09-15-2022 Specific gravity (U) [Rel density] 1.015 1.002-1.030 [facility] Urobilinogen Auto test strip Ql (U)Ordered By: ED PROVIDER on 09-15-2022 Urobilinogen Ql (U) Normal mg/dl Normal [facility] LABORATORYOrdered By: Lexi Schultz on 09-04-2022 Glucose [Mass/Vol] 128 mg/dL Invalid Interpretation Code 82 - 115 mg/dL [facility] LABORATORYOrdered By: Clotilde Emery on 08-17-2022 Albumin [...] in some clinical conditions. Invalid Interpretation Code Chemistry S LABORATORYOrdered By: Leeann De León on 05-18-2022 Glucose [Mass/Vol] 186 mg/dL Invalid Interpretation Code 82 - 115 mg/dL [facility] Vital Signs Date Time Vital Sign Value Performing Clinician Facility 02-19-2025 07:20-0400 Body temperature 98 [degF] [facility] 02-19-2025 07:20-0400 Diastolic blood pressure 63 mm[Hg] [facility] 02-19-2025 07:20-0400 Heart rate 93 /min [facility] 02-19-2025 07:20-0400 Respiratory rate 16 /min [facility] 02-19-2025 07:20-0400 SaO2% (BldA) [Mass fraction] 95 % [facility] 02-19-2025 07:20-0400 Systolic blood pressure 101 mm[Hg] [facility] 02-19-2025 06:01-0400 Body height 185.42 cm [facility] 02-19-2025 06:01-0400 Body mass index (BMI) [Ratio] 25.2 kg/m2 [facility] 02-19-2025 06:01-0400 Body weight 86.9 kg [facility] 12-25-2024 13:03-0500 Body height 182.88 cm [facility] 12-25-2024 13:03-0500 Body mass index (BMI) [Ratio] 25.2 kg/m2 [facility] 12-25-2024 13:03-0500 Body weight 84.48 kg [facility] 12-03-2024 10:26-0500 Diastolic Blood Pressure Non-Invasive 62 mm[Hg] MIKE AGUIRRE MD [facility] 12-03-2024 10:26-0500 Heart rate 89 /min MIKE AGUIRRE MD [facility] 12-03-2024 10:26-0500 Respiratory rate 18 /min MIKE AGUIRRE MD [facility] 12-03-2024 10:26-0500 Systolic Blood Pressure Non-Invasive 135 mm[Hg] MIKE AGUIRRE MD [facility] 12-03-2024 08:49-0500 Blood Pressure Location MIKE AGUIRRE MD [facility] 12-03-2024 08:49-0500 Blood Pressure Method MIKE AGUIRRE MD [facility] 12-03-2024 08:49-0500 Body temperature 97.7 [degF] MIKE AGUIRRE MD [facility] 12-03-2024 08:49-0500 Body weight 86.4 kg MIKE AGUIRRE MD [facility] 12-03-2024 08:49-0500 Diastolic Blood Pressure Non-Invasive 68 mm[Hg] MIKE AGUIRRE MD [facility] 12-03-2024 08:49-0500 Heart rate 90 /min MIKE AGUIRRE MD [facility] 12-03-2024 08:49-0500 Respiratory rate 17 /min MIKE AGUIRRE MD [facility] 12-03-2024 08:49-0500 Systolic Blood Pressure Non-Invasive 148 mm[Hg] MIKE AGUIRRE MD [facility] 12-03-2024 07:50-0500 Diastolic Blood Pressure Non-Invasive 72 mm[Hg] GABY REICHFIELD DO [facility] 12-03-2024 07:50-0500 Heart rate 109 /min GABY REICHFIELD DO [facility] 12-03-2024 07:50-0500 Respiratory rate 16 /min GABY REICHFIELD DO [facility] 12-03-2024 07:50-0500 Systolic Blood Pressure Non-Invasive 122 mm[Hg] GABY REICHFIELD DO [facility] 12-03-2024 06:34-0500 Diastolic Blood Pressure Non-Invasive 72 mm[Hg] GABY REICHFIELD DO [facility] 12-03-2024 06:34-0500 Heart rate 105 /min GABY REICHFIELD DO [facility] 12-03-2024 06:34-0500 Respiratory rate 20 /min GABY REICHFIELD DO [facility] 12-03-2024 06:34-0500 Systolic Blood Pressure Non-Invasive 135 mm[Hg] GABY REICHFIELD DO [facility] 12-03-2024 05:52-0500 Body temperature 97.88 [degF] GABY REICHFIELD DO [facility] 12-03-2024 05:52-0500 Diastolic Blood Pressure Non-Invasive 84 mm[Hg] GABY REICHFIELD DO [facility] 12-03-2024 05:52-0500 Heart rate 110 /min GABY REICHFIELD DO [facility] 12-03-2024 05:52-0500 Respiratory rate 20 /min GABY REICHFIELD DO [facility] 12-03-2024 05:52-0500 Systolic Blood Pressure Non-Invasive 144 mm[Hg] GABY REICHFIELD DO [facility] 11-14-2024 13:44-0500 Body temperature 98.71 [degF] [facility] Work Phone: [facility] 11-14-2024 13:44-0500 Body weight 86.3 kg [facility] Work Phone: [facility] 11-14-2024 13:44-0500 Diastolic blood pressure 72 mm[Hg] [facility] Work Phone: [facility] 11-14-2024 13:44-0500 Heart rate 138 /min [facility] Work Phone: [facility] 11-14-2024 13:44-0500 Respiratory rate 18 /min [facility] Work Phone: [facility] 11-14-2024 13:44-0500 SaO2% (BldA) [Mass fraction] 96 % [facility] Work Phone: [facility] 11-14-2024 13:44-0500 Systolic blood pressure 134 mm[Hg] [facility] Work Phone: [facility] 04-10-2024 12:08-0400 Body temperature 98.2 [degF] Kumar Pendlebury COMMUNICATION STUDIES PROFESSOR.SPLIT LEATHER DEPARTMENT SUPERVISOR Work Phone: [facility] 04-10-2024 12:08-0400 Body weight 85.1 kg Kumar Pendkaylynn COMMUNICATION STUDIES PROFESSOR.SPLIT LEATHER DEPARTMENT SUPERVISOR Work Phone: [facility] 04-10-2024 12:08-0400 Diastolic blood pressure 62 mm[Hg] Kumar Pendlebury COMMUNICATION STUDIES PROFESSOR.SPLIT LEATHER DEPARTMENT SUPERVISOR Work Phone: [facility] 04-10-2024 12:08-0400 Heart rate 125 /min Kumar Pendlebury COMMUNICATION STUDIES PROFESSOR.SPLIT LEATHER DEPARTMENT SUPERVISOR Work Phone: [facility] 04-10-2024 12:08-0400 Respiratory rate 17 /min Kumar Pendlebury COMMUNICATION STUDIES PROFESSOR.SPLIT LEATHER DEPARTMENT SUPERVISOR Work Phone: [facility] 04-10-2024 12:08-0400 SaO2% (BldA) [Mass fraction] 96 % Kumar Pendlebury COMMUNICATION STUDIES PROFESSOR.SPLIT LEATHER DEPARTMENT SUPERVISOR Work Phone: [facility] 04-10-2024 12:08-0400 Systolic blood pressure 132 mm[Hg] Kumar Pendlebury COMMUNICATION STUDIES PROFESSOR.SPLIT LEATHER DEPARTMENT SUPERVISOR Work Phone: [facility] 12-20-2022 12:55-0500 Diastolic blood pressure 60 mm[Hg] [facility] 12-20-2022 12:55-0500 Heart rate 115 /min [facility] 12-20-2022 12:55-0500 Respiratory rate 20 /min [facility] 12-20-2022 12:55-0500 SaO2% (BldA) [Mass fraction] 97 % [facility] 12-20-2022 12:55-0500 Systolic blood pressure 130 mm[Hg] [facility] 12-20-2022 12:14-0500 Body temperature 97.8 [degF] [facility] 12-20-2022 10:38-0500 Body height 182.88 cm [facility] 12-20-2022 10:38-0500 Body mass index (BMI) [Ratio] 25 kg/m2 [facility] 12-20-2022 10:38-0500 Body weight 83.68 kg [facility] 12-16-2022 10:57-0500 Body temperature 98.6 [degF] Addis Athy PA-C Work Phone: [facility] 12-16-2022 10:57-0500 Body weight 82.56 kg Addis Athy PA-C Work Phone: [facility] 12-16-2022 10:57-0500 Diastolic blood pressure 64 mm[Hg] Addis Athy PA-C Work Phone: [facility] 12-16-2022 10:57-0500 Heart rate 116 /min Addis Athy PA-C Work Phone: [facility] 12-16-2022 10:57-0500 Respiratory rate 18 /min Addis Athy PA-C Work Phone: [facility] 12-16-2022 10:57-0500 SaO2% (BldA) [Mass fraction] 96 % Addis Athy PA-C Work Phone: [facility] 12-16-2022 10:57-0500 Systolic blood pressure 122 mm[Hg] Addis Athy PA-C Work Phone: [facility] 09-18-2022 17:26-0500 Body temperature 97.81 [degF] [facility] COMMUNICATION STUDIES PROFESSOR.SPLIT LEATHER DEPARTMENT SUPERVISOR Work Phone: [facility] 09-18-2022 17:26-0500 Body weight 86.18 kg Kumar Olivares COMMUNICATION STUDIES PROFESSOR.SPLIT LEATHER DEPARTMENT SUPERVISOR Work Phone: [facility] 09-18-2022 17:26-0500 Diastolic blood pressure 74 mm[Hg] [facility] COMMUNICATION STUDIES PROFESSOR.SPLIT LEATHER DEPARTMENT SUPERVISOR Work Phone: [facility] 09-18-2022 17:26-0500 Heart rate 105 /min [facility] COMMUNICATION STUDIES PROFESSOR.SPLIT LEATHER DEPARTMENT SUPERVISOR Work Phone: [facility] 09-18-2022 17:26-0500 Respiratory rate 18 /min [facility] COMMUNICATION STUDIES PROFESSOR.SPLIT LEATHER DEPARTMENT SUPERVISOR Work Phone: [facility] 09-18-2022 17:26-0500 SaO2% (BldA) [Mass fraction] 97 % [facility] COMMUNICATION STUDIES PROFESSOR.SPLIT LEATHER DEPARTMENT SUPERVISOR Work Phone: [facility] 09-18-2022 17:26-0500 Systolic blood pressure 122 mm[Hg] [facility] COMMUNICATION STUDIES PROFESSOR.SPLIT LEATHER DEPARTMENT SUPERVISOR Work Phone: [facility] 09-15-2022 22:27-0500 Respiratory rate 20 /min [facility] 09-15-2022 22:00-0500 Diastolic blood pressure 96 mm[Hg] [facility] 09-15-2022 22:00-0500 Heart rate 91 /min [facility] 09-15-2022 22:00-0500 SaO2% (BldA) [Mass fraction] 96 % [facility] 09-15-2022 22:00-0500 Systolic blood pressure 168 mm[Hg] [facility] 09-15-2022 20:12-0500 Body height 182.88 cm [facility] Work Phone: 09-15-2022 20:12-0500 Body mass index (BMI) [Ratio] 25.4 kg/m2 [facility] 09-15-2022 20:12-0500 Body temperature 98.4 [degF] [facility] 09-15-2022 20:12-0500 Body weight 85.27 kg [facility] 09-04-2022 11:44-0500 Diastolic Blood Pressure Non-Invasive [address] YANI DOUGHERTY MD [facility] 09-04-2022 11:44-0500 Heart rate 87 /min DR YANI DOUGHERTY MD [facility] 09-04-2022 11:44-0500 Respiratory rate 14 /min DR YANI DOUGHERTY MD [facility] 09-04-2022 11:44-0500 Systolic Blood Pressure Non-Invasive [address] YANI DOUGHERTY MD [facility] 09-04-2022 11:35-0500 Diastolic Blood Pressure Non-Invasive [address] YANI DOUGHERTY MD [facility] 09-04-2022 11:35-0500 Heart rate 84 /min DR YANI DOUGHERTY MD [facility] 09-04-2022 11:35-0500 Respiratory rate 14 /min DR YANI DOUGHERTY MD [facility] 09-04-2022 11:35-0500 Systolic Blood Pressure Non-Invasive [address] YANI DOUGHERTY MD [facility] 09-04-2022 11:30-0500 Diastolic Blood Pressure Non-Invasive [address] YANI DOUGHERTY MD [facility] 09-04-2022 11:30-0500 Heart rate 90 /min DR YANI DOUGHERTY MD [facility] 09-04-2022 11:30-0500 Respiratory rate 14 /min DR YANI DOUGHERTY MD [facility] 09-04-2022 11:30-0500 Systolic Blood Pressure Non-Invasive [address] YANI DOUGHERTY MD [facility] 09-04-2022 11:25-0500 Body temperature 97.7 [degF] DR YANI DOUGHERTY MD [facility] 09-04-2022 11:20-0500 Respiratory Rate - Anes 0 br/min DR YANI DOUGHERTY MD [facility] 09-04-2022 11:15-0500 Respiratory Rate - Anes 20 br/min DR YANI DOUGHERTY MD [facility] 09-04-2022 11:10-0500 Respiratory Rate - Anes 11 br/min DR YANI DOUGHERTY MD [facility] [place] 09-04-2022 11:00-0500 Body weight 25.45 kg/m2 DR YANI DOUGHERTY MD [facility] [place] 09-04-2022 10:39-0500 Body height [address] YANI DOUGHERTY MD [facility] [place] 09-04-2022 10:39-0500 Body temperature 97.16 [degF] DR YANI DOUGHERTY MD [facility] [place] 09-04-2022 10:39-0500 Body weight 84.[address] YANI DOUGHERTY MD [facility] [place] 09-04-2022 10:39-0500 Heart rate 93 /min DR YANI DOUGHERTY MD [facility] [place] 08-08-2022 09:56-0400 Body height 182.88 cm [facility] Work Phone: 08-08-2022 09:56-0400 Body mass index (BMI) [Ratio] 25.6 kg/m2 [facility] Work Phone: 08-08-2022 09:56-0400 Body temperature 96 [degF] [facility] Work Phone: 08-08-2022 09:56-0400 Body weight 85.7 kg [facility] Work Phone: 08-08-2022 09:56-0400 Diastolic blood pressure 81 mm[Hg] [facility] Work Phone: 08-08-2022 09:56-0400 Heart rate 117 /min [facility] Work Phone: 08-08-2022 09:56-0400 Respiratory rate 17 /min [facility] Work Phone: 08-08-2022 09:56-0400 SaO2% (BldA) [Mass fraction] 99 % [facility] Work Phone: 08-08-2022 09:56-0400 Systolic blood pressure 137 mm[Hg] [facility] Work Phone: 05-18-2022 08:54-0400 Diastolic Blood Pressure NBP [address] YANI DOUGHERTY MD [facility] [place] 05-18-2022 08:54-0400 Heart rate 99 /min DR YAIN DOUGHERTY MD [facility] [place] 05-18-2022 08:54-0400 Respiratory rate 13 /min DR YANI DOUGHERTY MD [facility] [place] 05-18-2022 08:54-0400 Systolic Blood Pressure NBP [address] YANI DOUGHERTY MD [facility] [place] 05-18-2022 08:48-0400 Diastolic Blood Pressure NBP [address] YANI DOUGHERTY MD [facility] [place] 05-18-2022 08:48-0400 Heart rate 96 /min DR YANI DOUGHERTY MD [facility] [place] 05-18-2022 08:48-0400 Respiratory rate 14 /min DR YANI DOUGHERTY MD [facility] [place] 05-18-2022 08:48-0400 Systolic Blood Pressure NBP [address] YANI DOUGHERTY MD [facility] [place] 05-18-2022 08:41-0400 Diastolic Blood Pressure NBP [address] YANI DOUGHERTY MD [facility] [place] 05-18-2022 08:41-0400 Heart rate 102 /min DR YANI DOUGHERTY MD [facility] [place] 05-18-2022 08:41-0400 Respiratory rate 17 /min DR YANI DOUGHERTY MD [facility] [place] 05-18-2022 08:41-0400 Systolic Blood Pressure NBP [address] YANI DOUGHERTY MD [facility] [place] 05-18-2022 08:31-0400 Body temperature 97.16 [degF] DR YANI DOUGHERTY MD [facility] [place] 05-18-2022 07:15-0400 Body height 182.[address] YANI DOUGHERTY MD [facility] [place] 05-18-2022 07:15-0400 Body weight 84.[address] YANI DOUGHERTY MD [facility] [place] 05-18-2022 07:13-0400 Body height 182.[address] YANI DOUGHERTY MD [facility] [place] 05-18-2022 07:13-0400 Body temperature 97.7 [degF] DR YANI DOUGHERTY MD [facility] [place] 05-18-2022 07:13-0400 Body weight 84.[address] YANI DOUGHERTY MD [facility] [place] 05-18-2022 07:13-0400 Heart rate 105 /min DR YANI DOUGHERTY MD [facility] [place] 08-20-2021 15:36-0400 Diastolic blood pressure 67 mm[Hg] JR CLARK DO [facility] [place] 08-20-2021 15:36-0400 Heart rate 105 /min JR CLARK DO [facility] [place] 08-20-2021 15:36-0400 Respiratory rate 16 /min JR CLARK DO [facility] [place] 08-20-2021 15:36-0400 Systolic blood pressure 122 mm[Hg] JR CLARK DO [facility] [place] 08-20-2021 13:29-0400 Body height 182.9 cm JR CLARK DO [facility] [place] 08-20-2021 13:29-0400 Body temperature 98.24 [degF] JR CLARK DO [facility] [place] 08-20-2021 13:29-0400 Diastolic blood pressure 80 mm[Hg] JR CLARK DO [facility] [place] 08-20-2021 13:29-0400 Heart rate 122 /min JR CLARK DO [facility] [place] 08-20-2021 13:29-0400 Respiratory rate 16 /min JR CLARK DO [facility] [place] 08-20-2021 13:29-0400 Systolic blood pressure 142 mm[Hg] JR CLARK DO [facility] [place] Encounters Encounter Date Encounter Type Care Provider Facility Start: 08-09-2025 ambulatory [facility] Facili ty:[facility] Start: 08-07-2025 Encounter for other preprocedural examination [facility] Start: 07-31-2025 ambulatory YOANA LION PA-C Faci lity:[facility] Start: 07-09-2025 End: 07-09-2025 ambulatory YOANA LION PA-C Facility:[facility] Start: 07-09-2025 End: 07-09-2025 Patient encounter procedure YOANA LION PA-C [facility] Start: 04-02-2025 ambulatory Satinder Jung Facility :[facility] Start: 03-29-2025 ambulatory Jaqueline Augustine Facility:[facility] Start: 03-29-2025 Non-patient / Non-visit Dr. Jenny Augustine MD -[facility] Start: 03-29-2025 End: 03-29-2025 ambulatory [facility] Work Phone: Start: 03-29-2025 End: 03-29-2025 Patient encounter procedure Domenic Khan MAPLE SUGAR MAKERMiguel ÁngelC -Cardiovascular Services Work Phone: Start: 03-29-2025 End: 03-29-2025 ambulatory [facility] Facility:[facility] Start: 02-19-2025 ambulatory Tonio Rogers Facility :[facility] Start: 02-19-2025 Non-patient / Non-visit Tonio Meidna nd, DO -[facility] Start: 02-19-2025 End: 02-19-2025 Admission to same day surgery center Tonio Rogers DO -Endoscopy Work Phone: Start: 02-19-2025 End: 02-19-2025 ambulatory Tonio Rogers Facility:[facility] Start: 02-12-2025 End: 03-09-2025 ambulatory YOANA LION PA-C Facility:[facility] Start: 02-12-2025 End: 03-09-2025 Physical therapy management YOANA BARBOZAC [facility] Start: 02-12-2025 Encounter for other preprocedural examination Mckenna [facility] Start: 02-06-2025 End: 02-06-2025 Non-patient / Non-visit Dr. Raymon Bhakta MD -[facility] Work Phone: Start: 02-06-2025 End: 02-06-2025 ambulatory [facility] Work Phone: Start: 02-06-2025 End: 02-06-2025 Patient encounter procedure Mckenna PEREIRA -Pulmonary Services/Neurology Work Phone: Start: 02-06-2025 End: 02-06-2025 ambulatory Yoana Lion Facility:[facility] Start: 01-19-2025 End: 01-19-2025 ambulatory [facility] Work Phone: Start: 01-19-2025 End: 01-19-2025 Patient encounter procedure Luz DAWKINS -Radiology, [facility] Work Phone: Start: 01-19-2025 End: 01-19-2025 ambulatory Luz aBcon Facility:[facility] Start: 01-11-2025 End: 01-11-2025 ambulatory [facility] Work Phone: Start: 01-11-2025 End: 01-11-2025 Patient encounter procedure Luz BUSTOSC -Nuclear Medicine, [facility] Work Phone: Start: 01-11-2025 End: 01-11-2025 ambulatory Luz Bacon Facility:[facility] Start: 01-02-2025 End: 01-02-2025 ambulatory [facility] Work Phone: Start: 01-02-2025 End: 01-02-[address] Rey Wallace MD -[facility], [facility] Work Phone: Start: 01-01-2025 End: 01-02-2025 ambulatory [facility] Work Phone: Start: 01-01-2025 End: 01-01-2025 Patient encounter procedure Shakira Dee -Laboratory Work Phone: Start: 01-01-2025 End: 01-01-2025 ambulatory Shakira Dee Facility:[facility] Start: 12-25-2024 End: 12-25-[address] Marcos Archer MD -[facility] Work Phone: Start: 12-25-2024 End: 12-25-2024 ambulatory Marcos Archer Facility:[facility] Start: 12-18-2024 End: 12-18-2024 Patient encounter procedure Luz DAWKINS -[facility] Work Phone: Start: 12-18-2024 End: 12-18-2024 ambulatory Luz Bacon Facility:[facility] Start: 12-03-2024 End: 12-03-2024 Emergency department patient visit MIKE AGUIRRE MD [facility] Start: 12-03-2024 End: 12-03-2024 Emergency department patient visit GABY GRAY DO [facility] Start: 11-15-2024 End: 11-15-2024 Telephone encounter James PEREIRA Work Phone: [facility] Comment on above: Results Start: 11-14-2024 End: 11-14-2024 ambulatory Facility:[facility] Start: 11-14-2024 End: 11-14-2024 Patient encounter procedure [facility] Work Phone: [facility] Comment on above: Viral URI (Primary D x); Acute cough; Chest congestion; Chest tightness; Headaches Start: 09-26-2024 End: 09-26-2024 Patient encounter procedure Larisa Leal -[facility] Work Phone: Start: 09-26-2024 End: 09-26-2024 ambulatory [facility] Facility:[facility] Start: 05-12-2024 End: 05-12-2024 ambulatory PHY WO ID REFERRING Facility: Start: 05-12-2024 End: 05-12-2024 Patient encounter procedure PHY WO ID REFERRING [facility] Start: 04-10-2024 End: 04-10-2024 ambulatory Facility:[facility] Start: 04-10-2024 End: 04-10-2024 Patient encounter procedure Kumar Olivares COMMUNICATION STUDIES PROFESSOR.SPLIT LEATHER DEPARTMENT SUPERVISOR Work Phone: [facility] Comment on above: Burning with urinati on (Primary Dx) Start: 12-23-2023 End: 12-23-[address] REY WALLACE MD Facility:[facility] Start: 12-23-2023 End: 12-23-[address] REY WALLACE MD [facility] Start: 06-15-2023 End: 06-15-2023 Transcribe Orders Ramu Gay COMMUNICATION STUDIES PROFESSOR-SPLIT LEATHER DEPARTMENT SUPERVISOR Work Phone: [facility] Comment on above: Dyspnea, unspecified type Start: 03-29-2023 ambulatory Domenic Hernandezi ty:[facility] Start: 12-20-2022 End: 12-20-2022 Emergency department patient visit [facility]gency [facility] Start: 12-17-2022 Telephone encounter Cornelia sy COMMUNICATION STUDIES PROFESSOR.SPLIT LEATHER DEPARTMENT SUPERVISOR Work Phone: [facility] Comment on above: Results Start: 12-16-2022 End: 12-16-2022 Subsequent hospital visit by physician Xr [facility] Work Phone: Radiology Comment on above: Bronchitis [J40] Start: 12-16-2022 End: 12-16-2022 Patient encounter procedure Addis Coelho PA-C Work Phone: [facility] Comment on above: Bronchitis (Primary Dx); Acute upper respiratory infection, unspecified Start: 11-17-2022 End: 11-21-2022 Outreach Lab ISIAH LOBO DO [facility] Start: 09-21-2022 End: 09-21-2022 ambulatory [facility] Work Phone: Start: 09-21-2022 End: 09-21-2022 Patient encounter procedure [facility]-Radiology, [facility] Start: 09-18-2022 End: 09-18-2022 Patient encounter procedure Kumar Olivares APRN.SPLIT LEATHER DEPARTMENT SUPERVISOR Work Phone: [facility] Comment on above: Acute bilateral low back pain without sciatica (Primary Dx); Glucose found in urine on examination Start: 09-15-2022 End: 09-15-2022 Emergency department patient visit [facility]gency [facility] Start: 09-04-2022 End: 09-04-[address] YANI DOUGHERTY MD [facility] Start: 08-28-2022 End: 08-28-2022 Patient encounter procedure ISIAH LOBO DO [facility] Start: 08-17-2022 End: 08-17-2022 Patient encounter procedure ISIAH LOBO DO [facility] Start: 08-08-2022 End: 08-08-2022 Emergency department patient visit [facility] Start: 05-18-2022 End: 05-18-[address] YANI DOUGHERTY MD [facility] Start: 08-20-2021 End: 08-20-2021 Emergency department patient visit JR CLARK DO [facility] Procedures Date Procedure Procedure Detail Performing Clinician Start: 03-29-2025 Cardiovascular stress test using pharmacologic stress agent [facility] Start: 01-19-2025 Videoswallow [facility] Start: 01-11-2025 Radionuclide gastric emptying study [facility] Start: 01-02-2025 CT of abdomen and pelvis without contrast [facility] Start: 01-01-2025 Prostate specific antigen measurement [facility] Comment on above: This test was performed using the [employer] tPSA method. Measured values of a patient sample can vary depending on the testing procedure used. PSA values determined on patient samples by different testing procedures cannot be used interchangeably. If there is a change in PSA assays while monitoring therapy, sequential testing should be performed to confirm baseline values. Start: 12-25-2024 X-ray of lumbosacral spine [facility] Start: 09-26-2024 MRI of lumbar spine [facility] Start: 06-15-2023 Radiologic exam chest 2 views Jalilrebeca Gay COMMUNICATION STUDIES PROFESSOR-SPLIT LEATHER DEPARTMENT SUPERVISOR Work Phone: Start: 12-20-2022 Plain chest X-ray Start: 12-16-2022 Radiologic exam chest 2 views Addis R Ath y PA-C Work Phone: Start: 09-21-2022 Diagnostic radiography of abdomen Start: 09-18-2022 Gluc bld gluc mntr dev cleared fda spec home use [facility] Provider Start: 09-18-2022 Urnls dip stick/tablet rgnt auto w/o microscopy Chente Loaiza COMMUNICATION STUDIES PROFESSOR.SPLIT LEATHER DEPARTMENT SUPERVISOR Work Phone: Start: 09-15-2022 CT of abdomen [...] DTaP,Tdap,Td Vaccine (2 - Td or Tdap) [facility] Start: 06-01-2028 Lipid panel Cholesterol [facility] Start: 2026 RSV Vaccine (1 - 1-d ose 75+ series) RSV Vaccine (1 - 1-dose 75+ series) [facility] Start: 02-19-2025 Egd insert guide wir e dilator passage esophagus EGD GUIDE WIRE INSERTION [facility] Start: 02-19-2025 Egd transoral biopsy single/multiple EGD BIOPSY SINGLE/MULTIPLE [facility] Start: 02-19-2025 Patient discharge [facility] Start: 10-25-2024 Advance Directive Discussion Advance Directive Discussion [facility] Start: 06-25-2024 Covid-19 Vaccine ( season) Covid-19 Vaccine () [facility] Start: 06-25-2024 Influenza vaccination C [facility] Start: 10-25-2023 Advance Directive Discussion Advance Directive Discussion [facility] Start: 10-25-2023 Behavioral Health Screening Behavioral Health Screening [facility] Start: 07-25-2023 Influenza vaccination Influenza Vacc ine (#1) [facility] Start: 06-25-2023 Covid-19 Vaccine ( season) Covid-19 Vaccine ( season) [facility] Start: 12-16-2022 End: 12-30-2022 Influenza virus A and B RNA and SARS-CoV-2 (COVID-19) N gene panel - Respiratory specimen by ISABEL with probe detection [facility] Work Phone: Comment on above: Expected: 12/16/2022 , Expires: 12/30/2022 Start: 10-25-2022 ADVANCE DIRECTIVE DISCUSSION ADVANCE DIRECTIVE DISCUSSION [facility] Start: 10-25-2022 DEPRESSION [facility]MENT [facility] Start: 09-15-2022 [facility] Start: 07-04-2022 Pneumococcal vaccination Pneumococcal Vaccine(s) (65+ yrs) (2 - PCV) [facility] Start: 10-25-2021 ADVANCE DIRECTIVE DISCUSSION ADVANCE DIRECTIVE DISCUSSION [facility] Start: 10-25-2021 DEPRESSION ASSESSMENT DEPRESSION ASS ESSMENT [facility] Start: 2016 Pneumococcal vaccination Pneumococcal Vaccine(s) (65+ yrs) (1 - PCV) [facility] Start: 2011 RSV Vaccine (1 - 1-d ose 60+ series) RSV Vaccine (1 - 1-dose 60+ series) [facility] Start: 2001 Shingles (RZV) Vacci ne (1 of 2) Shingles (RZV) Vaccine (1 of 2) [facility] Start: 2001 SHINGRIX VACCINE (1 of 2) SHINGRIX VACCINE (1 of 2) [facility] Start: 1996 COLOGUARD (FIT-DNA) COLOGUARD (FIT-D NA) [facility] Start: 1996 Colonoscopy COLONOSCOPY [facility] Start: 1996 COLORECTAL CANCER SCREENING COLORECTAL CANCER SCREENING [facility] Start: [address] COLONOGRAPHY [facility] Start: 1996 DIABETES SCREEN DIABETES SCREEN [facility] Start: 1996 Diabetes Screening Diabetes Screenin g [facility] Start: 1996 FECAL OCCULT BLOOD FECAL OCCULT BLOO D [facility] Start: 1996 Screening for malign ant neoplasm of colon [facility] Start: 1996 SIGMOIDOSCOPY SIGMOIDOSCOPY [facility] Start: 1986 Lipid panel [facility] Start: 1986 LIPID SCREEN LIPID SCREEN [facility] Start: 1970 Tetanus vaccination Tetanus (T d or Tdap) Booster [facility] Start: 1970 Urine microalbumin profile DTAP,TDAP,TD (1 - Tdap) [facility] Start: 1969 Annual PCP Team Ramp Boss abigail Disease Visit Annual PCP Team Chronic Disease Visit [facility] Start: 1969 Anxiety Screening Anxiety Screening [facility] Start: 1969 BP Controlled (<130/80) BP Controlle d (<130/80) [facility] Start: 1969 Creatinine measurement Serum Creatin ine [facility] Start: 1969 Depression Screening Depression Scre ening [facility] Start: 1969 Hepatitis B surface antibody level LDL Cholesterol [facility] Start: 1969 HEPATITIS C SCREENING HEPATITIS C SC REENING [facility] Start: 1969 [facility]: [facility] Tetanus + diphtheria + acellular pertussis vaccine (product) Tdap Booster [facility] Start: 1961 Diabetic foot examination Diabetic Foot Exam [facility] Start: 1961 Glaucoma screening Dilated Retinal E xam [facility] Start: 1961 Hepatitis B screening Urine Albumin:Creatinine Ratio [facility] Start: 1957 PNEUMOCOCCAL: 65+ (1 - PCV) PNEUMOCOCCAL: 65+ (1 - PCV) [facility] Start: 1956 Hemoglobin A1c measurement HbA1C [facility] Start: 03-28-1952 COVID-19 VACCINE (#1) COVID-19 VACCI NE (#1) [facility] Start: 1951 ABDOMINAL AORTIC ANEURYSM SCREENING ABDOMINAL AORTIC ANEURYSM SCREENING [facility] Start: 1951 Abdominal aortic aneurysm screening Abdominal Aortic Aneurysm Screening [facility] Start: 1951 Screening for malign ant neoplasm of colon Colonoscopy [facility] COVID & INFLUENZA A/ B & RSV PCR, ROUTINE COVID & INFLUENZA A/B & RSV PCR, ROUTINE Microbiology Routine Acute cough Chest congestion Chest tightness Headaches 11/14/2024 4:12 PM EST [facility] Work Phone: Glucose [Mass/volume ] in Serum or Plasma GLUCOSE, BLOOD (POC) Lab Routine Glucose found in urine on examination Ordered: 09/18/2022 [facility] Work Phone: Comment on above: Ordered: 09/18/2022 Patient Education [facility] Work Phone: Patient referral [facility] Work Phone: Radionuclide gastric emptying study [facility] UA DIP, URINE (POC) UA DIP, URIN E (POC) Lab Routine Burning with urination Ordered: 04/10/2024 [facility] Work Phone: Comment on above: Ordered: 04/10/2024 Videoswallow [facility] Immunizations Immunization Date Immunization Notes Care Provider [facility]2022 influenza, high dose seasonal, preservative-free ISIAH LOBO DO [facility] 08-14-2022 influenza virus vacc ine, unspecified formulation [facility] 1 [facility] 11-04-2021 influenza, high dose seasonal, preservative-free; Translations: [Fluad Quadrivalent PF ] DR YANI DOUGHERTY MD [facility] 07-04-2021 pneumococcal polysaccharide vaccine, 23 valent; Translations: [Pneumovax 23] JR CLARK DO [facility] 09-05-2020 influenza virus vacc ine, unspecified formulation JR CLARK DO [facility] 09-05-2020 influenza, injectabl e, quadrivalent, preservative free [facility] 09-05-2020 influenza, seasonal, injectable [facility] Payers Date Payer Category Payer Self-pay [id number] 2023 Unknown [id number] 2022 Self-pay [id number] 2016 Medicare [id number] 2016 Private Health Insurance [id number] 2016 Medicare [id number] 2016 Private Health Insurance [id number] 1950 Unknown [id number] 2.16.8 [id number] 1950 Unknown [id number] 2.16.8 40.1.293444.3.579.2.627 1951 Unknown [id number] 2.16.8 40.1.157715.3.579.2.627 1951 Unknown [id number] 2.16. [id number] 1951 Unknown [id number] 2.16. 840.1.403785.3.579.2.627 1951 Unknown [id number] 2.16.8 40.1.093348.3.579.2.627 1950 Unknown [id number] 2.16.8 40.1.713939.3.579.2.627 Unknown [id number] 2.16.8 40.1.973121.3.579.2.630 Unknown [id number] 2.16.8 40.1.020670.3.579.2.462 Unknown [id number] 2.16.8 40.1.063426.3.579.2.462 Unknown [id number] 2.16.8 40.1.595632.3.579.2.462 Unknown [id number] 2.16.8 40.1.341156.3.579.2.462 Unknown [id number] 2.16.8 40.1.125308.3.579.2.462 Unknown [id number] 2.16.8 40.1.109178.3.579.2.462 Unknown [id number] 2.16.8 40.1.979702.3.579.2.462 Unknown [id number] 2.16.8 40.1.255207.3.579.2.462 Unknown [id number] 2.16.8 40.1.179696.3.579.2.462 Unknown [id number] 2.16.8 40.1.150220.3.579.2.462 Unknown [id number] 2.16.8 40.1.912312.3.579.2.462 Unknown [id number] 2.16.8 40.1.830628.3.579.2.462 Unknown [id number] 2.16.8 40.1.282318.3.579.2.462 Unknown [id number] 2.16.8 40.1.123564.3.579.2.462 Unknown [id number] 2.16.8 40.1.908645.3.579.2.462 Unknown [id number] 2.16.8 40.1.937586.3.579.2.462 Social History Date Type Detail Facility Start: 05-29-2020 Heavy tobacco smoker (finding) [facility] Start: 1950 Sex Assigned At Male [facility] Start: 08-08-2022 End: 12-20-2022 Tobacco smoking status NHIS Unknown if ever smoked [facility] Start: 08-08-2022 Rare [facility] Start: 09-04-2020 None [facility] Start: 09-04-2020 Spouse/ Significant Other [facility] Start: 09-04-2020 Cigarettes [facility] Start: 09-18-2022 End: 02-14-2025 Tobacco smoking status NHIS Smokes tobacco daily [facility] Start: 09-18-2022 Tobacco use and exposure Smokeless tobacco non-user [facility] Start: 1950 Sex Assigned At Not on file [facility] Start: 09-08-2022 End: 09-18-2022 Exposure to SARS-CoV-2 (event) Not sure [facility] Start: 10-04-2020 End: 04-10-2024 Gender identity Not on file [facility] Start: 10-04-2020 End: 04-10-2024 History of Social function [facility] National Score (1-10 0), lower number is lower risk Not on file [facility] Sexual Orientation [facility] Start: 09-19-2019 End: 02-10-2025 Sex Male (finding) [facility] Goals Date Patient Goal Desired Activity /State Functional Status Date Assessment Result Facility 12-03-2024 Functional Status Room check per formed, Banana Room Cutter at bedside [facility] 12-03-2024 Functional Status Independent [facility] 12-03-2024 Functional Status Standard Safet y ID band on, Allergy Band on, Call device within reach, Bed in low position, Wheels locked, Upper/Half-Length side-rails up, Phone within reach, personal items within reach, Bedside Cart Locked, Visitor at bedside [facility] 09-04-2022 Functional Status Maintained [facility] 05-18-2022 Functional Status Awake [facility] 05-18-2022 Functional Status Maintained [facility] Mental Status Date Assessment Result Facility 02-19-2025 Cognitive function Voice/Name [facility] Work Phone: 12-03-2024 Mental Status Orientation Oriented x 4 [facility] 12-03-2024 Mental Status Oriented x 4 [facility] 12-03-2024 Mental Status [facility] [facility] 09-04-2022 Mental Status Oriented x 4 [facility] 10-15-2022 Cognitive function Level Of Cons ciousness Awake;Alert;Appropriate;Follow s Commands [facility] Work Phone: 05-18-2022 Mental Status Oriented x 4 [facility] [place] 05-18-2022 Mental Status [facility] Clinical Notes 08-20-2021 to 02-19-2025 Note Date & Type Note Facility 02-19-2025 Note [facility] Medical Records Department [address] [place] [address] History Physical Exam 02/19/25 0645 MR#: [id number] Acct: [id number] Name: AGAPITO MESSER Rep #: [id number] : 1950 74 From: Tonio Rogers DO PCP: [facility] Status:REG [facility] Location: [place] [address] HPI - General General Date of Admission: 02/19/25 Date of Service: 02/19/25 Chief Complaint: dysphagia HPI Narrative AGAPITO MESSER, is a 74 M who presents to the office today for establishment with [facility] for difficulty swallowing with a history having [...] exposure to questionable drinking water at [employer], asbestos and [place]. He reports some difficulty chewing due to [...] was told to repeat in 10 years. [facility] Medical History Wears partial dentures [...] dyspepsia, dysphagia, hitesh (more content not included)... [facility] 01-19-2025 Procedure note [facility] 01-11-2025 Nuclear medicine Diagnostic study note [facility] Imaging Services [address] [place], [place] [address] Gastric Emptying Study MR#: [id number] Acct: [id number] Name: AGAPITO MESSER Rep #: [id number] : 1950 M 74 From: Leon Clancy MD PCP: [facility] Status: REG CLI Study:Gastric Emptying Study Date of Exam: 01/11/25 Exam# [id number] Ordering Dr: Hunter Bacon [employer]LE [employer]KER-C PROCEDURE: GASTRIC EMPTYING STUDY REASON FOR EXAM: [...] IMPRESSION: Normal gastric emptying examination. Reading Location: [place] [address] CC: MARIZA Bacon; [facility] ~ Suppression Crew Leader: Signed [facility] 01-02-2025 Radiology Diagnostic study note [facility] Imaging Services [address] [place] [address] Abdomen/Pelvis without Cont MR#: [id number] Acct: [id number] Name: AGAPITO MESSER Rep #: [id number] : 1950 M 74 From: Leon Clancy MD PCP: [facility] Status: REG CLI Study:Abdomen/Pelvis without Cont Date of Exa m: 01/02/25 Exam# [id number] Ordering Dr: Maude Wallace MD PROCEDURE: ABDOMEN/PELVIS [...] use of iterative reconstruction technique). Reading Location: [facility] CC: Dr. Rey Wallace MD; [facility] ~ Suppression Crew Leader: Signed [facility] 12-18-2024 Evaluation note Diagnosis Onset Date Resolution Delayed gastric emptying acute December 18, 2024 10:33am Dysphagia acute December 18, 2024 10:33am Esophageal stricture acute 2024 10:33am Reflux esophagitis acute 2024 10:33am Spondylolisthesis, lumbar region acute December 25, 2024 12:32pm Spondylosis of lumbar region without myelopathy or radiculopathy acute December 25, 2024 12:32pm [facility] Work Phone: 1(228) 683-700702-24-2025 Evaluation note* Diagnosis Onset Date Resolution Status Admit Date Delayed gastric emptying acute December 18, 2024 10:33am Dysphagia acute December 18, 2024 10:33am Esophageal stricture acute 2024 10:33am Reflux esophagitis acute 2024 10:33am Spondylolisthesis, lumbar region acute December 25, 2024 12:32pm Spondylosis of lumbar region without myelopathy or radiculopathy acute December 25, 2024 12:32pm Delayed gastric emptying acute February 19, 2025 5:15am Dysphagia acute February 19 5:15am Esophageal stricture acute Apri l 2024 5:15am Reflux esophagitis acute February 19, 2025 5:15am [facility] Work Phone: 1(830) 814-593102-09-2025 Hospital Discharge instructions Patient Education 12/03/2024 10:13:46 [...] If your esophagus was blocked by an rfyj-aqr-lwgwoqp pill (such as a vitamin), avoid this [...] your stool (dark red or black color) 0444-1327 [employer]. [address] [place] [address]. All rights reserved. This information is not intended as a substitute for professional medical care. Always follow yourhealthcare professional's instructions. Follow Up Care 12/03/2024 08:45:07 With:CHENTE CASILLAS MD Address: [address] [place] [address] [place] [address]- When:2-4 days [facility] 02-09-2025 Gastroenterology Consult note Date of Service December 03, 2024 Reason for Consultation Concern for food impaction Referring Physician Dr. Aguirre History of Present Illness 74-year-old male with a history of anxiety, BPH, diabetes, fatty liver, hypertension, hyperlipidemia, TIA who was transferred from [place] ED where he presented with concern for for impaction. Patient was eating a small bite of steak at 430 this morning and began to have dysphagia and trouble swallowing tolerating secretions. he tried some Coke but this did not help. In the [place] ED, he received glucagon and Pepcid. He [...] underwent EGD last in 2018. His outpatient gravel weigher is Dr. Garcia but patient states that [...] hypertension, hyperlipidemia, TIA who was transferred from [place] ED where he presented with concern for for impaction. Patient was eating a small bite of steak at 430 this morning and began to have dysphagia and trouble swallowing tolerating secretion. he tried some Coke but this did not help. . In the [place] ED, he received glucagon and Pepcid. He was then transferred here for GI evaluation. Patient is now symptomatically improved. He is tolerating secretions and oral liquids. He does have a history of peptic stricture for which he underwent EGD last in 2018. -Okay to discharge patient with close outpatient GI follow-up. Patient prefers to reestablish witha new gravel weigher. Will follow-up for outpatient EGD with Dr. [...] Oral, qDay Allergies CeleBREX Abdominal pain Chantix [place] Hives Vicodin Wellbutrin Short of breath on [...] ANNETTE DIAZ MD on 12/03/2024 11:36 AM [id number] Emergency department Discharge summary Discharge Instructions Thank you for allowing [facility] to assist you with your healthcare needs. The following is importantdischarge information regarding your hospital visit. What to Do Next Instructions from Your Care Team No qualifying data available. Post Acute Orders No qualifying data available. You Need to Schedule the Following Appointments Follow Up with CHENTE CASILLAS MD When:Within 2-4 days Where:[address] [facility] [place] [address]- Allergies CeleBREX Abdominal pain Chantix [place] Hives Vicodin Wellbutrin Short of breath on [...] If your esophagus was blocked by an tupp-but-hxmikov pill (such as a vitamin), avoid this [...] your stool (dark red or black color) 5047-2359 [employer]. [address] [place] [address], [place] [address]. All rights reserved. This information is not intended as a substitute for professional medical care. Always follow yourhealthcare professional's instructions. Additional Information VACCINATE! IT SAVES LIVES! Members of the community who have not yet received the COVID-19 vaccine and would like to receive it can visit one of [facility] vaccine clinics. There are many vaccine clinic locations within the [facility]. For locations and available times, please visit www.gettheshot.coronavirus.[place].gov/. It is important to note that some COVID mobile vaccine clinics are held outdoors and may be canceled in rainy or stormy conditions. To learn more about pediatric vaccinations (ages 5-11), we invite you to visit the [facility] webpage. https://www.akVistaGen Therapeuticss.org/pages/3722-Kkpxm-Xgrmfdkvvsm-Eibkwhjwyk-Frwyo-Eiu stions.htmlTo learn more about the COVID-19 vaccine, we invite you to visit the CDC website for a list of frequently asked questions. https://www.cdc.gov/coronavirus/2019-ncov/vaccines/faq.html [facility] Patient Portal Access Instructions: Stay connected with your healthcare team and access your personal medical information anytime with the [facility] Patient Portal. If you would like a full copy of your medical records please contact the [facility] Medical Records Department Wednesday through Wednesday between 8a.m. and 4:30p.m. Please follow the directions below to access the portal: 1.Access the email account you provided upon registration to the hospital.2.Look for an invitation email from [facility].3.Open the email and access the invitation link: Accept Invitation to [facility]4.Fill in the required morris to create your account. Sign into [email or web address] with your username and password that you [...] you will allow to register on the [facility] Patient Portal for access to your information. You can also access the [facility] Patient Portal on the MongoSluice tayler. Simply click on Health Records under StaffInsight and then click on the GottaPark logo. HOW TO SAFELY DISPOSE OF PRESCRIPTION [...] Call your local pharmacy or go to http://Colibri Heart Valve.CloudFactory/8N7Tl2r to find one close to you.3.Make use of household items: Use cat litter or old coffee grounds to dispose medications if other options arenot available. Mix your drugs with these household products, seal them in an airtight container andthrow it into the garbage. Call [facility]: [phone] to be sure your drugs can be [...] been reviewed and explained to me and I,TRUPTI AGAPITO Bella understand my current condition and have read and understand these discharge instructions. I have received a written copy of the plan/instructions. If I have questions, I am aware that I should contactmy doctor. 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 Signature: Date/Time: Relationship to Patient: Witness Name/Signature: Date/Time: [facility]24-78-2037 Emergency department Discharge summary Discharge Instructions Thank [...] CHENTE CASILLAS MD When:Within 2-4 days Where:[address] [facility] [place] [address]- Allergies CeleBREX Abdominal pain Chantix [place] Hives Vicodin Wellbutrin Short of breath on [...] If your esophagus was blocked by an iyzu-ptw-mpcougb pill (such as a vitamin), avoid this [...] your stool (dark red or black color) 3592-0358 [employer]. [address] [place], [place] [address]. All rights reserved. This information is not intended as a substitute for professional medical care. Always follow yourhealthcare professional's instructions. Additional Information VACCINATE! IT SAVES LIVES! Members of the community who have not yet received the COVID-19 vaccine and would like to receive it can visit one of [facility] vaccine clinics. There are many vaccine clinic locations within the [facility]. For locations and available times, please visit www.gettheshot.coronavirus.[place].gov/. It is important to note that some COVID mobile vaccine clinics are held outdoors and may be canceled in rainy or stormy conditions. To learn more about pediatric vaccinations (ages 5-11), we invite you to visit the [facility] webpage. https://www.[facility].org/pages/8701-Vdlfh-Tdajzbqcemo-Ummvdnyvwi-Tvxfm-Dmb stions.htmlTo learn more about the COVID-19 vaccine, we invite you to visit the CDC website for a list of frequently asked questions. https://www.cdc.gov/coronavirus/2019-ncov/vaccines/faq.html [facility] Patient Portal Access Instructions: Stay connected with your healthcare team and access your personal medical information anytime with the [facility] Patient Portal. If you would like a full copy of your medical records please contact the [facility] Medical Records Department Wednesday through Wednesday between 8a.m. and 4:30p.m. Please follow the directions below to access the portal: 1.Access the email account you [facility].2.Look for an invitation email from [facility].3.Open the email and access the invitation link: Accept Invitation to [facility]4.Fill in the required morris to create your account. Sign into [email or web address] with your username and password that you [...] you will allow to register on the [facility] Patient Portal for access to your information. You can also access the [facility] Patient Portal on the MongoSluice tayler. Simply click on Health Records under BtiquesData and then click on the GottaPark logo. HOW TO SAFELY DISPOSE OF PRESCRIPTION [...] Call your local pharmacy or go to http://bit.CloudFactory/1F6Aw1n to find one close to you.3.Make use of household items: Use cat litter or old coffee grounds to dispose medications if other options arenot available. Mix your drugs with these household products, seal them in an airtight container andthrow it into the garbage. Call [facility]: [phone] to be sure your drugs can be [...] am aware that I should contactmy doctor. 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 Signature: Date/Time: Relationship to Patient: Witness Name/Signature: Date/Time: [facility] Rtknjase10-43-4989 Emergency department Discharge summary Discharge Instructions Thank you for allowing [facility] to assist you with your healthcare needs. The following is importantdischarge information regarding your hospital visit. What to Do Next Instructions from Your Care Team No qualifying data available. Post Acute Orders No qualifying data available. You Need to Schedule the Following Appointments Follow Up with CHENTE CASILLAS MD When:Within 2-4 days Where:[address] [facility] [address]- Allergies CeleBREX Abdominal pain Chantix [place] Hives Vicodin Wellbutrin Short of breath on [...] If your esophagus was blocked by an dpjj-hvf-mkvwima pill (such as a vitamin), avoid this [...] your stool (dark red or black color) 8781-3703 [employer]. [address] [place] [address]. All rights reserved. This information is not intended as a substitute for professional medical care. Always follow yourhealthcare professional's instructions. Additional Information VACCINATE! IT SAVES LIVES! Members of the community who have not yet received the COVID-19 vaccine and would like to receive it can visit one of [facility] vaccine clinics. There are many vaccine clinic locations within the [facility]. For locations and available times, please visit www.gettheshot.coronavirus.[place].gov/. It is important to note that some COVID mobile vaccine clinics are held outdoors and may be canceled in rainy or stormy conditions. To learn more about pediatric vaccinations (ages 5-11), we invite you to visit the [facility] webpage. https://www.[facility].org/pages/0650-Dudke-Ittrvafahkp-Yfeitowmxg-Plrwv-Klz stions.htmlTo learn more about the COVID-19 vaccine, we invite you to visit the CDC website for a list of frequently asked questions. https://www.cdc.gov/coronavirus/2019-ncov/vaccines/faq.html [facility] Patient Portal Access Instructions: Stay connected with your healthcare team and access your personal medical information anytime with the [facility] Patient Portal. If you would like a full copy of your medical records please contact the [facility] Medical Records Department Wednesday through Wednesday between 8a.m. and 4:30p.m. Please follow the directions below to access the portal: 1.Access the email account you [facility].2.Look for an invitation email from [facility].3.Open the email and access the invitation link: Accept Invitation to [facility]4.Fill in the required morris to create your account. Sign into [email or web address].[email or web address] with your username and password that you [...] you will allow to register on the [facility] Patient Portal for access to your information. You can also access the [facility] Patient Portal on the Izzui. Simply click on Health Records under StaffInsight and then click on the GottaPark logo. HOW TO SAFELY DISPOSE OF PRESCRIPTION [...] Call your local pharmacy or go to http://Colibri Heart Valve.CloudFactory/7J4Jh0j to find one close to you.3.Make use of household items: Use cat litter or old coffee grounds to dispose medications if other options arenot available. Mix your drugs with these household products, seal them in an airtight container andthrow it into the garbage. Call [facility]: [phone] to be sure your drugs can be [...] am aware that I should contactmy doctor. 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 Lluvia Roger MA [facility]01-22-2025 Miscellaneous Notes* Telephone Encounter - Lluvia Roger MA - 11/15/2024 8:47 AM EST Patient given results and verbalized understanding of instructions given. Lluvia Roger MA * Telephone Encounter - James Elizalde PA - 11/15/2024 7:12 AM EST Negative COVID flu RSV documented in this encounterBarnesville Hospital01-22-2025 Telephone encounter Note * Telephone Encounter - James Elizalde PA - 11/15/2024 7:12 AM EST Negative COVID flu RSV [facility] Work Phone: 1(970) 906-314501-21-2025 NoteHNO ID: [id number] Author: TOMAS ONEAL PA-C Service: ? Author Type: Physician Squeak Rattle And Leak Repairer Type: Progress Notes Filed: 11/14/2024 14:03 Note Text: Subjective Agapito Messer is a 74 year old male with a past medical history of hypertension, GERD, CKD, diabetes, depression, anxiety, and TIA who presents to [facility] care today for evaluation of cough, [...] which included preparing to see the patient, awxr-vj-hvyd patient care, completing clinical documentation, performing a medically appropriate examination, counseling and educating the patient/family/caregiver, and ordering medications, tests, or procedures. [facility] Crnoin-[facility]01-21-2025 History of Present illness Narrative* Tomas Oneal PA-C - 11/14/2024 1:56 PM EST Subjective Agapito Messer is a 74 year old male with a past medical history of hypertension, GERD, CKD, diabetes, depression, anxiety, and TIA who presents to [facility] care today for evaluation of cough, [...] which included preparing to see the patient, zbci-ch-wjyy patient care, completing clinical documentation, performing a medically appropriate examination, counseling and educating the patient/family/caregiver, and ordering medications, tests,or procedures. Tomas Oneal PA-C documented in this encounterBarnesville Hospital01-21-2025 Instructions* Patient Instructions* Tomas Oneal PA-C [...] - Decongestants: Topical spray: Oxymetazoline (Afrin Nasal [place]); limit to 3-4 days maximum Oral medication: [...] seen by a doctor. documented in this encounterBarnesville Hospital06-17-2024 NoteHNO ID: [id number] Author: KUMAR OILVARES APRN.SPLIT LEATHER DEPARTMENT SUPERVISOR Service: ? Author Type: Nurse Practitioner Type: [...] (COLACE) 100 mg capsule 100 mg. omega 0-whm-fgm-fish oil (FISH OIL) 100-160-1,000 mg cap Take [...] ED for further ev (more content not included)...[facility] 04-10-2024 History of Present illness Narrative* Kumar Olivares APRN.[facility] - 04/10/2024 12:12 PM EDT Subjective [...] (COLACE) 100 mg capsule 100 mg. omega 7-vxk-zdu-fish oil (FISH OIL) 100-160-1,000 mg cap Take [...] care. Kumar Olivares APRN.DAVID documented in this encounterBarnesville Hospital07-19-2023 Evaluation + Plan note Future Scheduled Tests Laboratory* Prostate Specific Antigen 05/12/23 * Thyroid Stimulating Hormone 05/12/23 * A1C Hemoglobin 05/12/23 * Lipid Profile 05/12/23 * Complete Metabolic Panel 05/12/23 [facility] 02-26-[address] Flores [facility] December 20, 2022 12:39pm Note Date/Time December 20, 2022 11:01am [facility] Medical Records Department [address] [place] [address] Emergency Department Summary 12/20/22 MR#: [id number] Acct: [id number] Name: AGAPITO MESSER Rep #:[id number] : [...] seen initially at the urgent care at [facility] here in [place], he states they did a COVID swab [...] rib pain, but no other chest pain. [facility] Medical History (Updated 12/20/22 @ 12:35 by [...] Primary Care Provider: Isiah Lobo Referrals: Isiah Lobo, [Primary Care Provider] - 3-5 Days if not improving Disposition Disposition: Home, Self Care What to do if you have Problems For any increased pain, shortness of breath, bleeding, nausea or vomiting, chestpain, or any unexpected problems, contact your Primary Care Provider. Call [facility] ([phone]) or report to the closest Emergency Room. Call 911 if necessary. 12/20/22 1239 <Electronically signed by Stiven Flores MD> Cosigner Signature (if applicable): CC: Dr. Isiah Lobo, ~ Signed [facility] Work Phone: 1(201) 140-220602-23-2023 Miscellaneous Notes* Telephone Encounter - Carmen Melara [...] care provider or schedule a visit with [facility] Care Online. Cornelia Aviles APRN.CNP documented in this encounterBarnesville Hospital02-22-2023 History of Present illness Narrative* Addis Coelho PA-C - 12/16/2022 11:31 AM EST This note was created using TaxiForSure.comriter. Subjective Agapito Messer is a 72 year [...] (COLACE) 100 mg capsule 100 mg. omega 2-txj-zkh-fish oil (FISH OIL) 100-160-1,000 mg cap Take [...] ROUTINE Addis Coelho PA-C documented in this encounterBarnesville Hospital02-22-2023 Instructions* Patient Instructions* Addis Coelho PA-C [...] about your covid test. documented in this encounterBarnesville Hospital02-22-2023 History of Present illness Narrative* Feli [...] 16, 2022 11:07 AM documented in this encounterBarnesville Hospital11-25-2022 History of Present illness Narrative* Kumar Olivares APRN.SPLIT LEATHER DEPARTMENT SUPERVISOR - 09/18/2022 5:36 PM EST Subjective HPI Nontoxic-appearing male presents urgent care chief complaint lower back pain chills and transient nausea. Duration of symptoms 3 days. Associated symptoms listed above. Patient was seen at [facility] 3 days ago diagnosed with kidney stone. [...] or change in bowel habits. No rashes. States is recovering from COVID-19. Diagnosed with COVID-19 [...] (COLACE) 100 mg capsule 100 mg. omega 1-utd-ydj-fish oil (FISH OIL) 100-160-1,000 mg cap Take [...] of care. This note was generated using [employer] software. It may contain errors in wording, punctuation, or spelling. Kumar Olivares APRN.DAVID documented in this encounterBarnesville Hospital11-11-2022 Evaluation + Plan note Extracted from: Title:Clinical Document Author:YANI DOUGHERTY Date:09/04/22 [facility] ADMISSION HISTORY AN D PHYSICIAL CHIEF COMPLAINT: HISTORY OF PRESENT ILLNESS: REVIEW OF SYSTEMS: ACTIVE PROBLEMS: (29) Anxiety (81236722) Anxiety depression (073216299) Arthritis ([id number]) BMI 25.0-25.9,adult (3972158793) BPH (benign prostatic hyperplasia) (952894109) Chronic low back pain (747583606) Diabetes ([id number]) Diabetes (951095625) Dysphagia (40529821) Fatigue (191354963) Fatty liver (8417297014) GERD - Gastro-esophageal reflux disease (9083104241) Heavy smoker (268894067) Hypertriglyceridemia (160772285) Kidney stones ([id number]) Medicare annual wellness visit, subsequent (645744274) Need for hepatitis C screening test (503384921) Need for influenza vaccination (573480342) Need for vaccination against Streptococcus pneumoniae (5179840039) Risk and functional assessment ([id number]) Screening for colon cancer (153167556) Screening for prostate cancer (077925354) Shortness of breath (963099096) Sleep apnea (742292078) Statin intolerance (5438374553) TIA (transient ischemic attack) (638666091) Tobacco use (2303058504) Trouble in sleeping (913147466) Vitamin D deficiency (83174463) MEDICATIONS: Active Inpt Meds: None Active PRN Meds: None One Time Meds: None Active IV Meds: Lactated Ringers Infusion 1,000 mL (LR 1,000 mL) Start: 09/04/22 10:37:00 EST, Rate: 50 mL/hr, 09/04/22 10:37:00 EST ALLERGIES: (6) amoxicillin CeleBREX Chantix Reading Vicodin Wellbutrin FAMILY HISTORY: SOCIAL HISTORY: PHYSICAL EXAM: VITALS: GobxnoVdbeDDIjpjjBNAtO2BSO4VokqVi(kg) 09/04 11:05--------97.8--09/04 84.3 09/04 10:3936.2--243839XU02/11 84.3 24 Hr Tmax: 36.2 at 09/04 10:39 36 Hr Tmax: 36.2 at 09/04 10:39 Vital Signs are the last 5 in the past 48 hours. Weights display the last 5 within 7 days. Initial Wt: 09/04 84.3 kg 185 lb Current Wt: 09/04 84.3 kg 185 lb GENERAL: HEENT: CARDIOVASCULAR: RESPIRATORY: ABDOMEN: EXREMETIES: NEUROLOGICAL: PSYCHIATRIC: LABS: 36hr Labs 09/04 1039 Blood Glucose, Gonpgfcxo156D Blood Glucose, Bmoheasfa878G DIAGNOSTICS: IMPRESSION: PLAN: History and Physical Update I have examined the patient; reviewed the H&P and there are no changes to the H&P unless noted below. Future Appointments Appointment Date:11/13/2022 04:00:00 PM Scheduled Provider:ISIAH LOBO DO Location:[facility] Appointment Type:[facility] 11-11-2022 Hospital Discharge instructions Patient Education 09/04/2022 [...] before eating solid foods. General instructions Take otrr-ajq-bkuhbbr and prescription medicines only as told by [...] 01/31/2017 Document Revised: 01/09/2019 Document Reviewed: 01/31/2017 Zuu Onlnine Patient Education 2020 [employer]. 09/04/2022 11:42:16 Esophageal Dilatation Esophageal Dilatation Esophageal [...] including vitamins, herbs, eye drops, creams, and bkbt-seu-tjnrriv medicines. Any problems you or family members [...] home. Follow these instructions at home: Take stks-hco-utdsyfc and prescription medicines only as told by [...] 12/02/2006 Document Revised: 09/23/2018 Document Reviewed: 08/16/2018 Zuu Onlnine Patient Education 2020 [employer]. 09/04/2022 11:42:16 Esophageal Dilatation Esophageal Dilatation Esophageal [...] including vitamins, herbs, eye drops, creams, and lodq-ehb-iubzqzu medicines. Any problems you or family members [...] home. Follow these instructions at home: Take esql-zzw-chxlart and prescription medicines only as told by [...] 12/02/2006 Document Revised: 09/23/2018 Document Reviewed: 08/16/2018 Zuu Onlnine Patient Education [employer]. Follow Up Care 08/27/2022 15:43:40 With:YANI DOUGHERTY Address: [address] [facility] [address] [place] [phone] Business (1) When: only if needed Comments:CALL DR. DOUGHERTY'S OFFICE IN A COULE OF WEEKS AND LET HIM KNOW HOW YOU ARE DOING. [facility] 11-11-2022 Summary of episode note Discharge Instructions Thank you for allowing [facility] to assist you with your healthcare needs. The following is importantdischarge information regarding your hospital visit. Your Care Team ISIAH LOBO DO, DR. What to do next Scheduled Follow-Up Appointments Appointment Type When With Where Contact InformationPC OV 11/13/2022 04:00 PM ISIAH BRISCOE [address] [address] Follow Up Appointments Follow Up with YANI DOUGHERTY When Only if needed Why: CALL DR. DOUGHERTY'S OFFICE IN A COULE OF WEEKS AND LET HIM KNOW HOW YOU ARE DOING. Where: [address] [facility] [address] [place] [phone] Business (1) Allergies CeleBREX (Abdominal pain) Chantix [place] (Hives) Vicodin Wellbutrin (Short of breath on [...] before eating solid foods. General instructions Take daqd-bsz-snstcwd and prescription medicines only as told by [...] 01/31/2017 Document Revised: 01/09/2019 Document Reviewed: 01/31/2017 [employer] Patient Education 2020 [employer]. Esophageal Dilatation Esophageal dilatation, also called [...] including vitamins, herbs, eye drops, creams, and jcvj-xek-kfzzxvz medicines. Any problems you or family members [...] home. Follow these instructions at home: Take jyjs-yel-pqwwzvc and prescription medicines only as told by [...] 12/02/2006 Document Revised: 09/23/2018 Document Reviewed: 08/16/2018 Zuu Onlnine Patient Education 2020 [employer] Esophageal Dilatation Esophageal dilatation, also called [...] including vitamins, herbs, eye drops, creams, and azon-xcl-zmsaipj medicines. Any problems you or family members [...] home. Follow these instructions at home: Take eeoq-sbu-ekrfejc and prescription medicines only as told by [...] 12/02/2006 Document Revised: 09/23/2018 Document Reviewed: 08/16/2018 Zuu Onlnine Patient Education 2020 [employer]. Additional Information VACCINATE! IT SAVES LIVES! Members of the community who have not yet received the COVID-19 vaccine and would like to receive it can visit one of [facility] vaccine clinics. There are many vaccine clinic locations within the [facility]. For locations and available times, please visit [email or web address] It is important to note that some COVID mobile vaccine clinics are held outdoors and may be canceled in rainy or stormy conditions. To learn more about pediatric vaccinations (ages 5-11), we invite you to visit the [facility] webpage. https://www.[email or web address].org/pages/9562-Xemmq-Iyaxyvalznj-Cppihhhyqx-Yjsoc-Tjl stions.htmlTo learn more about the COVID-19 vaccine, we invite you to visit the [facility] website for a list of frequently asked questions. [email or web address]-[email or web address] _[email or web address].pdf [facility] Patient Portal Access Instructions: Stay connected with your healthcare team and access your personal medical information anytime with the [facility] Patient Portal.If you would like a full copy of your medical records, please contact the [facility] Medical Records Department, Wednesday through Wednesday between 8a.m. and 4:30p.m. Please follow the directions below to access the portal: 1.Access the email account you provided [facility].2.Look for an invitation email from [facility].3.Open the email and access the invitation link: Accept Invitation to [facility]4.Fill in the required morris to create your account. Sign into [email or web address] with your username and password that you [...] you will allow to register on the [facility] Patient Portal for access to your information. You can also access the [facility] Patient Portal on the MongoSluice tayler. Simply click on Health Records under HealthData and then click on the Shirlene logo. [...] Call your local pharmacy or go to http://bit.CloudFactory/6V6Si0r to find one close to you.3.Make use of household items: Use cat litter or old coffee grounds to dispose medications if other options arenot available. Mix your drugs with these household products, seal them in an airtight container andthrow it into the garbage. Call [facility]: [phone] to be sure your drugs can be [...] am aware that I should contactmy doctor. 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 Signature: Date/Time: Relationship to Patient: Witness Name/Signature: Date/Time: [facility]11-11-2022 Anesthesiology Consult note Patient: AGAPITO MESSER Age: 71 years Sex: Male : 1950 Associated Diagnoses: None Author: CHARLOTTE ESQUIVEL Assessment Postanesthesia assessment Vitals: Reviewed Results: Vital [...] by CHARLOTTE ESQUIVEL on 09/04/2022 11:26 AM [facility]11-11-2022 Note CHAUNCEY ADMISSION HISTORY AND PHYSICIAL CHIEF COMPLAINT: HISTORY OF PRESENT ILLNESS: REVIEW OF SYSTEMS: ACTIVE PROBLEMS: (29) Anxiety (57054961) Anxiety depression (768069321) Arthritis ([id number]-KND1H621G789) BMI 25.0-25.9,adult (7352767520) BPH (benign prostatic hyperplasia) (965665258) Chronic low back pain (471287025) Diabetes ([id number]-617L349H65Y7) Diabetes (315023008) Dysphagia (11910726) Fatigue (487192065) Fatty liver (0707999035) GERD - Gastro-esophageal reflux disease (8837926635) Heavy smoker (844109066) Hypertriglyceridemia (697919935) Kidney stones (404VD570-R391-2082-V4K4-5F75F97SUS50) Medicare annual wellness visit, subsequent (997008360) Need for hepatitis C screening test (637409718) Need for influenza vaccination (831943845) Need for vaccination against Streptococcus pneumoniae (2376746551) Risk and functional assessment (070825410) Screening for colon cancer (290544881) Screening for prostate cancer (476342969) Shortness of breath (738225701) Sleep apnea (744013104) Statin intolerance (0066980877) TIA (transient ischemic attack) (891225466) Tobacco use (8009424413) Trouble in sleeping (737075507) Vitamin D deficiency (98947981) MEDICATIONS: Active Inpt Meds: None Active PRN Meds: None One Time Meds: None Active IV Meds: Lactated Ringers Infusion 1,000 mL (LR 1,000 mL) Start: 09/04/22 10:37:00 EST, Rate: 50 mL/hr, 09/04/22 10:37:00 EST ALLERGIES: (6) amoxicillin CeleBREX Chantix Reading Vicodin Wellbutrin FAMILY HISTORY: SOCIAL HISTORY: PHYSICAL EXAM: VITALS: BmuxakIyzpCZFbcoxTBMnT1CUH9CzknWd(kg) 09/04 11:05--------97.8--09/04 84.3 09/04 10:3936.2--039556FE41/11 84.3 24 Hr Tmax: 36.2 at 09/04 10:39 36 Hr Tmax: 36.2 at 09/04 10:39 Vital Signs are the last 5 in the past 48 hours. Weights display the last 5 within 7 days. Initial Wt: 09/04 84.3 kg 185 lb Current Wt: 09/04 84.3 kg 185 lb GENERAL: HEENT: CARDIOVASCULAR: RESPIRATORY: ABDOMEN: EXREMETIES: NEUROLOGICAL: PSYCHIATRIC: LABS: 36hr Labs 09/04 1039 Blood Glucose, Jkrzvhjxm630J Blood Glucose, Uhjfzqefc543Y DIAGNOSTICS: IMPRESSION: PLAN: History and Physical Update I have examined the patient; reviewed the H&P and there are no changes to the H&P unless noted below. Digitally Signed by YANI DOUGHERTY MD on 09/04/2022 11:12 AM [facility]11-11-2022 Anesthesiology Consult note Patient: AGAPITO MESSER Age: [...] Abdominal pain. Chantix- No reactions were documented. Reading- Hives. Vicodin- No reactions were documented. Wellbutrin- [...] Problem list: Medical Anxiety / SNOMED CT 75516020 / Confirmed Anxiety depression / SNOMED CT 283949848 / Confirmed Arthritis / SNOMED CT [id number]-22M8-1I5S-TIU6B236B998 / Confirmed BPH (benign prostatic hyperplasia) / SNOMED CT 500402641 / Confirmed Chronic low back pain / SNOMED CT 607109473 / Confirmed Diabetes / SNOMED CT 2U1490NB-116R-97A3-5L9B-053B739X79D9 / Confirmed Diabetes / SNOMED CT 424067496 / Confirmed Dysphagia / SNOMED CT 98466424 / Confirmed Shortness of breath / SNOMED CT 327624194 / Confirmed Fatigue / SNOMED CT 731709755 / Confirmed Fatty liver / SNOMED CT 0252421993 / Confirmed GERD - Gastro-esophageal reflux disease / SNOMED CT 6740411980 / Confirmed Hypertriglyceridemia / SNOMED CT 238342981 / Confirmed Trouble in sleeping / SNOMED CT 363796399 / Confirmed Kidney stones / SNOMED CT 087QP980-S346-6457-O6D7-7U31X44RUY55 / Confirmed Need for influenza vaccination / SNOMED CT 778970941 / Confirmed BMI 25.0-25.9,adult / SNOMED CT 8612865282 / Confirmed Screening for colon cancer / SNOMED CT 730855961 / Confirmed Screening for prostate cancer / SNOMED CT 989009379 / Confirmed Medicare annual wellness visit, subsequent / SNOMED CT 142080572 / Confirmed Risk and functional assessment / SNOMED CT 338360632 / Confirmed Need for vaccination against Streptococcus pneumoniae / SNOMED CT 4431074997 / Confirmed Heavy smoker / SNOMED CT 276353935 / Confirmed Statin intolerance / SNOMED CT 5673345587 / Confirmed Tobacco use / SNOMED CT 0968688186 / Confirmed TIA (transient ischemic attack) / SNOMED CT 162678811 / Confirmed Need for hepatitis C screening test / SNOMED CT 105683163 / Confirmed Vitamin D deficiency / SNOMED CT 63141728 / Confirmed, Active Problems (29) Anxiety Anxiety [...] deficiency Histories Past Medical History: Active Diabetes ([id number]-[id number]-917D483B10S4) Arthritis (89RG0502-3A6E-36J4-8F1C-KQC8F917L641) BPH (benign prostatic hyperplasia) (771683667) TIA (transient ischemic attack) (019471624) Chronic low back pain (024727823) Family History: Asthma Sister Daughter Son Mother Heart disease Mother Son Substance abuse Son Alcohol abuse Father Son Mental illness Mother Depression Mother Sister Alzheimer's disease Mother Grandparent Osteoarthritis Mother Procedure history: Esophagogastroduodenoscopy (279146181) on 09/04/2022 at 71 Years. Esophagogastroduodenoscopy (648938350) on 11/05/2017 at 67 Years. Rotator cuff - right (19203141). Comments: 05/09/2019 18:35 Hellen Maldonado LPN right Oral surgery (4420033491). Amputation (448874173). Comments: 05/09/2019 18:36 Hellen Maldonado LPN right middle finger, reattached and pinned Cystoscopy (00176752). Social History Social & Psychosocial Habits Alcohol [...] Resp Rate 14 br/min (SEP 04 10:39) BZE086 mmHg (SEP 04 10:39) DBP82 mmHg (SEP 04 10:39) BMI25.45 (SEP 04 11:00) Measurements from flowsheet : Measurements 09/04/2022 11:00 EST Height 182 cm Admission Weight 84.3 kg [place] Body Weight 76.80 kg BSA Admission 2.06 Body Mass Index 25.45 kg/m2 09/04/2022 10:39 EST Height 182 cm Admission Weight 84.3 kg [place] Body Weight 76.80 kg Admission Body Mass [...] Attendee SN - CAt - Role Performed HEAT PUMP INSTALLER SN - CAt - Role Performed [employer] Essbase Developer SN - CAt - Role Performed Sap Business Analyst 1 09/04/2022 11:05 EST SN - Proc [...] Height 182 cm Admission Weight 84.3 kg [place] Body Weight 76.80 kg BSA Admission 2.06 [...] evident Teaching Method Explanation Preferred Written Language Qatari Preferred Spoken Language Qatari Information Given by Spouse Patient's Current Physicians [...] Height 182 cm Admission Weight 84.3 kg [place] Body Weight 76.80 kg Admission Body Mass [...] no difficulties Skin Temperature Warm Skin Description [place], Dry Skin Integrity Intact Mucous Membrane Color [place] Skin Moisture General Dry IV Present Present [...] Cooperative Orientation Oriented x 4 Allergies Yes Radio Operator On Yes Consent Form Signed Yes Patient [...] 10:54 . Assessment and Plan Citizen Of [place] Society of Anesthesiologists (ASA) physical status classification: Class III. Anesthetic Preoperative Plan Premedication: None. Anesthetic technique: MAC. Induction: intravenously. Postoperative pain management: Per surgeon. Risks discussed: nausea, vomiting, headache, sore throat, dental injury, hypotension, allergic reaction, serious complications. Informed consent: signed by patient. Digitally Signed by CHARLOTTE ESQUIVEL on 09/04/2022 11:08 AM [facility]07-25-2022 Evaluation + Plan noteExtracted from: Title:Clinical Document Author:YANI DOUGHERTY Date:05/18/22 CHAUNCEY ADMISSION HISTORY AN D PHYSICIAL CHIEF COMPLAINT: HISTORY OF PRESENT ILLNESS: REVIEW OF SYSTEMS: ACTIVE PROBLEMS: (23) Anxiety (44517430) Anxiety depression (360315580) Arthritis (51MM0438-2Q2A-13M3-8W8D-EBX2L179N614) BPH (benign prostatic hyperplasia) (267500847) Chronic low back pain (869652481) Diabetes ([id number]-19O3-3Y4W-690Z957L30E0) Dysphagia (67508529) Fatigue (105728929) Fatty liver (9558162882) GERD - Gastro-esophageal reflux disease (0304826424) Heavy smoker (508250093) Hypertriglyceridemia (560269276) Kidney stones (387OZ715-R720-2303-F6V9-8U65Q67EUR59) Need for influenza vaccination (983727021) Need for vaccination against Streptococcus pneumoniae (6306650221) Screening for colon cancer (175906680) Shortness of breath (500126731) Sleep apnea (457895722) Statin intolerance (5378553102) TIA (transient ischemic attack) (052452893) Tobacco use (3893485021) Trouble in sleeping (371304381) Vitamin D deficiency (83206569) MEDICATIONS: Active Inpt Meds: None Active PRN Meds: None One Time Meds: None Active IV Meds: Lactated Ringers Infusion 1,000 mL (LR 1,000 mL) Start: 05/18/22 7:12:00 EDT, Rate: 50 mL/hr, 05/18/22 7:12:00 EDT ALLERGIES: (6) amoxicillin CeleBREX Chantix Reading Vicodin Wellbutrin FAMILY HISTORY: SOCIAL HISTORY: PHYSICAL EXAM: VITALS: IfbqvvNzriHMCxetqNSKfM6JBE8DnqbOz(kg) 05/18 07:1336.5126/4778063--LI89/25 84.1 05/18 84.1 24 Hr Tmax: 36.5 [...] LABS: 36hr Labs 05/18 0713 Blood Glucose, Kqlqouxdz594S Blood Glucose, Qcxjcmmok773X DIAGNOSTICS: IMPRESSION: PLAN: History and Physical Update I have examined the patient; reviewed the H&P and there are no changes to the H&P unless noted below. Future Appointments Appointment Date:06/02/2022 09:00:00 AM Scheduled Provider:ISIAH LOBO DO Location:[facility] Appointment Type:[facility] Wellness Medicare Future Scheduled Tests Radiology* XR Chest 2 Views (PA & Lateral) 06/04/21 [facility] 07-25-2022 Hospital Discharge instructions Patient Education 05/18/2022 [...] before eating solid foods. General instructions Take icpl-cok-nqdrelj and prescription medicines only as told by [...] 01/31/2017 Document Revised: 01/09/2019 Document Reviewed: 01/31/2017 Zuu Onlnine Patient Education 2020 [employer]. 05/18/2022 08:39:52 Colonoscopy, Adult, Care After, Lviv-bh-Bzly Colonoscopy, Adult, Care After This sheet gives [...] are soft and easy to digest. Take svqd-ztz-xzjgykg or prescription medicines only as told by [...] 11/13/2011 Document Revised: 08/11/2018 Document Reviewed: 07/05/2017 Zuu Onlnine Patient Education 2020 [employer]. Follow Up Care 04/10/2022 07:45:00 With:YANI DOUGHERTY MD Address: [address] [phone] When: Unknown Comments:CALL DR DOUGHERTY WITH ANY QUESTIONS. GO TO THE EMERGENCY ROOM WITH ANY URGENT CONCERNS. [facility] 07-25-2022 Summary of episode note Discharge Instructions Thank you for allowing [facility] to assist you with your healthcare needs. The following is importantdischarge information regarding your hospital visit. Your Care Team ISIAH LOBO DO DR DOUGHERTY Your Diagnosis COLONOSCOPY What to do next Scheduled Follow-Up Appointments Appointment Type When With Where Contact InformationPC Wellness Medicare 06/02/2022 09:00 AM EDT ISIAH LOBO DO [facility] [address] [address] Follow Up Appointments Follow Up with YANI DOUGHERTY MD When Why: CALL DR DOUGHERTY WITH ANY QUESTIONS. GO TO THE EMERGENCY ROOM WITH ANY URGENT CONCERNS. Where: [address] [place] [phone] Allergies CeleBREX (Abdominal pain) Chantix Reading (Hives) Vicodin Wellbutrin (Short of breath on [...] before eating solid foods. General instructions Take guhm-ksj-fyipruw and prescription medicines only as told by [...] 01/31/2017 Document Revised: 01/09/2019 Document Reviewed: 01/31/2017 Z[employer]ine Patient Education 2020 [employer] Colonoscopy, Adult, Care After This sheet [...] are soft and easy to digest. Take tiql-hxl-pkbtrvf or prescription medicines only as told by [...] 11/13/2011 Document Revised: 08/11/2018 Document Reviewed: 07/05/2017 [employer] Patient Education 2020 [employer] Additional Information VACCINATE! IT SAVES LIVES! Members of the community who have not yet received the COVID-19 vaccine and would like to receive it can visit one of [facility] vaccine clinics. There are many vaccine clinic locations within the [facility]. For locations and available times, please visit [email or web address]/. It is important to note that some COVID mobile vaccine clinics are held outdoors and may be canceled in rainy or stormy conditions. To learn more about pediatric vaccinations (ages 5-11), we invite you to visit the [facility] webpage. https://www.[facility].org/pages/9856-Paltp-Hksxohaqtfr-Wliioxvoaz-Jwvtf-Nbw stions.htmlTo learn more about the COVID-19 vaccine, we invite you to visit the [facility] website for a list of frequently asked questions. [email or web address] [facility] Patient Portal Access Instructions: Stay connected with your healthcare team and access your personal medical information anytime with the [facility] Patient Portal.If you would like a full copy of your medical records, please contact the [facility] Medical Records Department, Wednesday through Wednesday between 8a.m. and 4:30p.m. Please follow the directions below to access the portal: 1.Access the email account you provided upon [facility].2.Look for an invitation email from [facility].3.Open the email and access the invitation link: Accept Invitation to [facility]4.Fill in the required morris to create your account. Sign into [email or web address] with your username and password that you [...] you will allow to register on the [employer] Patient Portal for access to your information. You can also access the [facility] Patient Portal on the [employer]ice tayler. Simply click on Health Records under [employer] and then click on the [employer]Park logo. HOW TO SAFELY DISPOSE OF PRESCRIPTION [...] Call your local pharmacy or go to [email or web address] Heart [email or web address] to find one close to you.3.Make use of household items: Use cat litter or old coffee grounds to dispose medications if other options arenot available. Mix your drugs with these household products, seal them in an airtight container andthrow it into the garbage. Call [facility]: [phone] to be sure your drugs can be [...] Care, Care After Colonoscopy, Adult, Care After, Insd-bj-Vjri Medication Leaflets My discharge plan and instructions have been reviewed and explained to me and I,AGAPITO MESSER understand my current condition and have read and understand these discharge instructions. I have received a written copy of the plan/instructions. If I have questions, I am aware that I should contactmy doctor. 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 Mental status: at preoperative baseline. Respiratory function: lungs are clear to auscultation. Respiratory support: none. CV function: Normal rate. Cardiovascular support: none. Pain. Nausea status: denies nausea. Postoperative hydration status: within normal limits. Digitally Signed by CHARLOTTE ESQUIVEL on 05/18/2022 08:38 AM [facility]07-25-2022 Note CHAUNCEY ADMISSION HISTORY AND PHYSICIAL CHIEF COMPLAINT: HISTORY OF PRESENT ILLNESS: REVIEW OF SYSTEMS: ACTIVE PROBLEMS: (23) Anxiety (62927883) Anxiety depression (316994816) Arthritis ([id number]-85H0-7E6W-CIY9V991Z755) BPH (benign prostatic hyperplasia) (156583779) Chronic low back pain (734072790) Diabetes (6D8731RL-844T-99H7-9R2E-801C099R98K4) Dysphagia (40853655) Fatigue (548796368) Fatty liver (0595408545) GERD - Gastro-esophageal reflux disease (5848253661) Heavy smoker (896892480) Hypertriglyceridemia (439556214) Kidney stones (038FI115-R984-5850-G1Z5-8A70Q64UZC51) Need for influenza vaccination (025841871) Need for vaccination against Streptococcus pneumoniae (0391498835) Screening for colon cancer (457219092) Shortness of breath (086879786) Sleep apnea (205763692) Statin intolerance (1677192918) TIA (transient ischemic attack) (027994326) Tobacco use (9607946606) Trouble in sleeping (380043099) Vitamin D deficiency (42069950) MEDICATIONS: Active Inpt Meds: None Active PRN Meds: None One Time Meds: None Active IV Meds: Lactated Ringers Infusion 1,000 mL (LR 1,000 mL) Start: 05/18/22 7:12:00 EDT, Rate: 50 mL/hr, 05/18/22 7:12:00 EDT ALLERGIES: (6) amoxicillin CeleBREX Chantix [place] Vicodin Wellbutrin FAMILY HISTORY: SOCIAL HISTORY: PHYSICAL EXAM: VITALS: [id number](kg) 05/18 07:1336.5126/4477300--FI79/25 84.1 05/18 84.1 24 Hr Tmax: 36.5 [...] LABS: 36hr Labs 05/18 0713 Blood Glucose, [id number] Blood Glucose, [id number] DIAGNOSTICS: IMPRESSION: PLAN: History and Physical Update I have examined the patient; reviewed the H&P and there are no changes to the H&P unless noted below. Digitally Signed by YANI DOUGHERTY MD on 05/18/2022 08:16 AM [facility]07-25-2022 Anesthesiology Consult note Patient: AGAPITO MESSER Age: [...] Abdominal pain. Chantix- No reactions were documented. Reading- Hives. Vicodin- No reactions were documented. Wellbutrin- [...] Problem list: Medical Anxiety / SNOMED CT 51750516 / Confirmed Anxiety depression / SNOMED CT 261437240 / Confirmed Arthritis / SNOMED CT [id number] / Confirmed BPH (benign prostatic hyperplasia) / SNOMED CT 594098196 / Confirmed Chronic low back pain / SNOMED CT 129336692 / Confirmed Diabetes / SNOMED CT [id number] / Confirmed Dysphagia / SNOMED CT 80294907 / Confirmed Shortness of breath / SNOMED CT 100660918 / Confirmed Fatigue / SNOMED CT 534452557 / Confirmed Fatty liver / SNOMED CT 3422166320 / Confirmed GERD - Gastro-esophageal reflux disease / SNOMED CT 6988106182 / Confirmed Hypertriglyceridemia / SNOMED CT 573234437 / Confirmed Trouble in sleeping / SNOMED CT 097287155 / Confirmed Kidney stones / SNOMED CT [id number] / Confirmed Need for influenza vaccination / SNOMED CT 175025821 / Confirmed Screening for colon cancer / SNOMED CT 424615916 / Confirmed Need for vaccination against Streptococcus pneumoniae / SNOMED CT 8632741366 / Confirmed Heavy smoker / SNOMED CT 542849611 / Confirmed Statin intolerance / SNOMED CT 7656404057 / Confirmed Tobacco use / SNOMED CT 5003848683 / Confirmed TIA (transient ischemic attack) / SNOMED CT 765744979 / Confirmed Vitamin D deficiency / SNOMED CT 14601562 / Confirmed, Active Problems (23) Anxiety Anxiety [...] deficiency Histories Past Medical History: Active Diabetes ([id number]) Arthritis ([id number]) BPH (benign prostatic hyperplasia) (830629639) TIA (transient ischemic attack) (487075535) Chronic low back pain (620045061), HTN Family History: Asthma Sister Daughter Son Mother Heart disease Mother Son Substance abuse Son Alcohol abuse Father Son Mental illness Mother Depression Mother Sister Alzheimer's disease Mother Grandparent Osteoarthritis Mother Procedure history: Esophagogastroduodenoscopy (915584188) on 11/05/2017 at 67 Years. Rotator cuff - right (90117512). Comments: 05/09/2019 18:35 EDT - Hellen Donovan LPN right Oral surgery ([id number]). Amputation ([id number]). Comments: 05/09/2019 18:36 EDT Hellen Baum LPN right middle finger, reattached and pinned Cystoscopy ([id number]). Social History Social & Psychosocial Habits Alcohol [...] Admission Weight 84.1 kg Weight Method Stated [place] Body Weight 77.62 kg General: Alert and [...] PHI Designated Person #1 We May Share [facility] Designated Person #1 Relationship Spouse Privacy Restrictions Requested None Height 182.9 cm Admission Weight 84.1 kg Weight Method Stated [place] Body Weight 77.62 kg Status N/A Sensory [...] Safety Brochure Information Reviewed Unable to complete Shirlene Rowley Video Viewed No Barriers to Learning None evident Teaching Method Explanation Teaching Evaluation No further teaching needed Preferred Written Language Qatari Preferred Spoken Language Qatari Information Given by Patient Patient's Current Physicians [...] Undergarments . Assessment and Plan Citizen Of [place] Society of Anesthesiologists (ASA) physical status classification: Class III. Anesthetic Preoperative Plan Premedication: None. Anesthetic technique: MAC. Induction: intravenously. Postoperative pain management: Per surgeon. Risks discussed: nausea, vomiting, headache, sore throat, dental injury, hypotension, allergic reaction, serious complications. Informed consent: signed by patient. Digitally Signed by CHARLOTTE ESQUIVEL on 05/18/2022 07:38 AM Digitally Signed by CHARLOTTE ESQUIVEL on 05/18/2022 07:39 AM [facility]10-27-2021 Hospital Discharge instructions Patient Education 08/20/2021 14:17:45 [...] Redness, warmth or drainage from the skin [id number] [employer]. [address] [place] [address]. All rights reserved. This information is not intended as a substitute for professional medical care. Always follow yourhealthcare professional's instructions. Follow Up Care 08/20/2021 13:23:54 With:ISIAH LOBO DO Address: When:2-4 days [facility] Evaluation + Plan note Future Appointments Appointment Date:11/04/2021 09:00:00 AM Scheduled Provider:ISIAH LOBO DO Location:[facility] Appointment Type: OV Follow Up Future Scheduled Tests Radiology* XR Chest 2 Views (PA & Lateral) 01/20/21 * XR Chest 2 Views (PA & Lateral) 06/04/21 [facility] Evaluation + Plan note Future Appointments Appointment Date:11/13/2022 04:00:00 PM Scheduled Provider:ISIAH LOBO DO Location:[facility] Appointment Type:PC OV [facility] Evaluation + Plan note Future Appointments Appointment Date:02/10/2023 10:00:00 AM Scheduled Provider:ISIAH LOBO DO Location:[facility] Appointment Type: OV [facility] evaluation noteNo assessment information available [facility] Work Phone: evaluation note* Diagnosis Acute bilateral low back pain without sciatica- Primary Glucose found in urine on examination Glycosuria [facility] Diagnosis Bronchitis- Primary Bronchitis, not specified as acute or chronic Acute upper respiratory infection, unspecified [facility] Diagnosis Dyspnea, unspecified type- Primary Dyspnea, unspecified type [facility] D[facility], unspecified type [facility]* Diagnosis Burning with urination- Primary Dysuria [facility]* Diagnosis Bronchitis Bronchitis, not specified as acute or chronic [facility]* Diagnosis Viral URI- Primary Acute upper respiratory infections of unspecified site Acute cough Chest congestion Other symptoms involving respiratory system and chest Chest tightness Other chest pain Headaches [facility] Narrative No data available for this section [facility] Hospital Discharge instructions No data available for this section [facility] Note* DANNY BUSCH MD: SIGN, VERIFY Event Display: VL Aorta For Medicare Screen (Outpt) [facility] Progress note No data available for this section [facility] Reason for referral (narrative)No reason for referral [facility] Work Phone: Chief Complaint and Reason [...] 2025 1:18pm PROLONGED FULLNESS, DYSPHAGIA, REFLUX [facility] 2024 9:56am Chief Complaint Admit Date RT FOOT DROP ACUTE September 26, 2024 7 :00am Dysphagia December 18, 2024 10:33am LUMBAR SPINE December 25, 2024 12:3 2pm Rm December 25, 2024 1:13 pm Dorsalgia, unspecified January 02, 2025 1:18pm PROLONGED FULLNESS, DYSPHAGIA, REFLUX [facility] 2024 9:56am DIFFICULTY SWALLOWING, FREQUENT COUGH [facility] 2024 12:20pm Chief Complaint Admit Date Dysphagia December 18, 2024 10:33am LUMBAR SPINE December 25, 2024 12:3 2pm Rm 4 December 25, 2024 1:13 pm Dorsalgia, unspecified January 02, 2025 1:18pm PROLONGED FULLNESS, DYSPHAGIA, REFLUX [facility] 2024 9:56am DIFFICULTY SWALLOWING, FREQUENT COUGH [facility] 2024 12:20pm PREOP February 06, 2025 11: 56am Chief Complaint Admit Date Dysphagia December 18, 2024 10:33am LUMBAR SPINE December 25, 2024 12:3 2pm Rm 4 December 25, 2024 1:13 pm Dorsalgia, unspecified January 02, 2025 1:18pm PROLONGED FULLNESS, DYSPHAGIA, REFLUX [facility] 2024 9:56am DIFFICULTY SWALLOWING, FREQUENT COUGH [facility] 2024 12:20pm PREOP February 06, 2025 11: 56am PREOP February 06, 2025 12: 27pm ABNORMAL EKG March 29, 2025 6:13a m Reason for Visit Admit Date Delayed gastric emptying December 18, 2024 10:33am Dysphagia December 18, 2024 10:33am Esophageal stricture December 18, 2024 10:33am Reflux esophagitis December 18, 2024 10:33am Spondylolisthesis, lumbar region December 252024 12:32pm Spondylosis of lumbar region without myelopathy or radiculopathy December 25, 2024 12:32pm Delayed gastric emptying February 19 5:15am Dysphagia February 19, 2025 5:1 5am Esophageal stricture February 19, 2025 5: 15am Reflux esophagitis February 19, 2025 5:1 5am Family History No Family History Records Found [...] September 04, 2 020 12:53pm Power of Party Demonstrator No September 04, 2020 12:53pm Advance Directive Response Recorded Date/ Time Living Will No September 15, 2 022 8:51pm Power of Party Demonstrator No September 15, 2022 8:51pm Advance Directive Response Recorded Date/ Time Living Will No December 20, 023 11:00am Power of Party Demonstrator No December 20, 2022 11:00am Advance Directive Response Recorded Date/ Time Do you have a Healthcare Power of Party Demonstrator? Yes February 14, 2025 2:42pm Health Concerns Infection Onset Date Last Indicated Resolved Time COVID-19 Rule-Out 12/16/2022 12/16/2022 Summary Purpose Reason for Referral Specialty Diagnoses / Procedures Referred By Contac t Referred To Contact Radiology Diagnoses Dyspnea, unspecified type Procedures XR CHEST 2 VIEWS Ramu Gay, COMMUNICATION STUDIES PROFESSOR-SPLIT LEATHER DEPARTMENT SUPERVISOR [address] [place] [address] [facility] DIAGNOSTIC RADIOLOGY [address] [place] [address] [place] [address] Referral ID Status Reason Start Date Expiration Date Visits Re quested Visits Authorized [id number] Closed 06/15/2023 06/14/2024 1 1 Additional Source Comments Care Team (unrecognized sect ion and content) Care Team Personnel Name: ISIAH LOBO DO Position: P4 Physician - Primary Care Med Service: Active Provider Member Role: Primary Care Physician Address: Address: [address] [place], [place] [address]- Name: REY WALLACE MD Position: P3 Physician - Urologist Med Service: Admitting Member Role: Urologist Address: Address: [address] [place] [address] [address] [place] [id number]- Name: DMOENIC KHAN APRN-MAPLE SUGAR MAKER Member Role: Irish Moss Gatherer Address: Address: [address] [place], [place] [id number]- [place] Name: MD JESSEE BRO Member Role: Pain Management Address: Address: [facility] [address] [place] [address] [address] [place] [phone]- Care Team Related Persons Name: ROBYN MESSER Address: Home [address] [place] [phone] [place] Name: ESTHER MESSER Care Team Personnel Name: YANI DOUGHERTY MD Position: Physician Member Role: Veterinary Anatomist Address: Address: [facility] [address] [facility] [address] [place] [address]- [place] Name: ISIAH LOBO DO Position: P4 Physician - Primary Care Member Role: Primary Care Physician Address: Address: [address] [place] [address]- Name: REY WALLACE MD Position: P3 Physician - Urologist Member Role: Urologist Address: Address: [address] [place] [address] [address] [place] [address]- Name: DOMENIC KHAN APRN-MAPLE SUGAR MAKER Member Role: Irish Moss Gatherer Address: Address: [address] [place], [place] [id number]- [place] Name: MD JESSEE BRO Member Role: Pain Management Address: Address: [facility] [address] [facility] [address] [place] [address]- [place] Care Team Related Persons Name: ROBYN MESSER Address: Home [address] [place], [place] [phone] [place] Name: ESTHER MESSER Care Team Personnel Name: YANI DOUGHERTY MD Position: Physician Member Role: Veterinary Anatomist Address: Address: [address] [facility] [address] [place] [address]- [place] Name: ISIAH LOBO DO Position: P4 Physician - Primary Care Member Role: Primary Care Physician Address: Address: [address] [place] [address]- [place] Name: REY WALLACE MD Position: P3 Physician - Urologist Member Role: Urologist Address: Address: [address] [place] [address] [address] [place] [address]- [place] Name: DOMENIC KHAN APRN-MAPLE SUGAR MAKER Member Role: Irish Moss Gatherer Address: Address: [address] [place], [place] [id number]- [place] Name: MD JESSEE BRO Member Role: Pain Management Address: Address: [facility] [address] [place] [address] [address] [place] [address]- [place] Care Team Related Persons Name: ROBYN MESSER Address: Home [address] [place], [place] [phone] [place] Name: ESTHER MESSER Care Team Personnel Name: YANI DOUGHERTY MD Position: Physician Member Role: Veterinary Anatomist Address: Address: [address] [facility] [address] [place] [address]- [place] Name: ISIAH LOBO DO Position: P4 Physician - Primary Care Member Role: Primary Care Physician Address: Address: [address] [place] [address]- [place] Name: REY WALLACE MD Position: P3 Physician - Urologist Member Role: Urologist Address: Address: [address] [place] [address] [address] [place] [address]- [place] Name: DOMENIC KHAN APRN-MAPLE SUGAR MAKER Member Role: Irish Moss Gatherer Address: Address: [address] [place] [address]- [place] Name: MD JESSEE BRO Member Role: Pain Management Address: Address: [facility] [address] [place] [address]- [place] Care Team Related Persons Name: ROBYN MESSER Address: Home [address] [place], [place] [phone] [place] Name: ESTHER MESSER Care Team Personnel Name: YANI DOUGHERTY MD Position: Physician Member Role: Veterinary Anatomist Address: Address: [address] [place] [address] [place] [address]- Name: ISIAH LOBO DO Position: P4 Physician - Primary Care Member Role: Primary Care Physician Address: Address: [address] [facility] [place] [address]- Name: REY WALLACE MD Position: P3 Physician - Urologist Member Role: Urologist Address: Address: [address] [facility] [address] [place] [address]- Name: DOMENIC KHAN APRN-MAPLE SUGAR MAKER Member Role: Irish Moss Gatherer Address: Address: [address] [place] [address]- Name: MD JESSEE BRO Member Role: Pain Management Address: Address: [facility] [address] [place], [place] [address] [place] [address] [place] [address]- Care Team Related Persons Name: ROBYN MESSER Address: Home [address] [place], [place] [phone] Name: ESTHER MESSER Goals (unrecognized section and content) Goals may be documented in a n alternate section Source Comments (unrecognize d section and content) In the event this informatio n is protected by the Federal Confidentiality of Alcohol and Drug Abuse Patient Records regulations: The Federal rules restrict any use of the information to criminally investigate or prosecute any alcohol or drug abuse patient.[facility] the event this information is protected by the Federal Confidentiality of Alcohol and Drug Abuse Patient Records regulations: The Federal rules restrict any use of the information to criminally investigate or prosecute any alcohol or drug abuse patient.[facility] the event this information is protected by the Federal Confidentiality of Alcohol and Drug Abuse Patient Records regulations: The Federal rules restrict any use of the information to criminally investigate or prosecute any alcohol or drug abuse patient.[facility] the event this information is protected by the Federal Confidentiality of Alcohol and Drug Abuse Patient Records regulations: The Federal rules restrict any use of the information to criminally investigate or prosecute any alcohol or drug abuse patient.[facility] the event this information is protected by the Federal Confidentiality of Alcohol and Drug Abuse Patient Records regulations: The Federal rules restrict any use of the information to criminally investigate or prosecute any alcohol or drug abuse patient.[facility] the event this information is protected by the Federal Confidentiality of Alcohol and Drug Abuse Patient Records regulations: The Federal rules restrict any use of the information to criminally investigate or prosecute any alcohol or drug abuse patient.[facility] the event this information is protected by the Federal Confidentiality of Alcohol and Drug Abuse Patient Records regulations: The Federal rules restrict any use of the information to criminally investigate or prosecute any alcohol or drug abuse patient.[facility] Reason for Visit (unrecogniz ed section and content) Reason Comments UTI Low back pain, chill s, nausea x3 days Reason Comments Sinus Problem sinus pressure, drai nage, cough, ear pain and sore throat x 5 days Reason Comments Results Specialty Diagnoses / Procedures Referred By Vaughn valle Referred To Contact Radiology Diagnoses Dyspnea, unspecified type Procedures XR CHEST 2 VIEWS Ramu Gay, COMMUNICATION STUDIES 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 DIAGNOSTIC RADIOLOGY [address] [place] [address] [place] [address] Referral ID Status Reason Start Date Expiration Date Visits Re quested Visits Authorized [id number] Closed 06/15/2023 06/14/2024 1 1 Reason Comments Urinary Problem Burning with urinati on x 1 week Reason Comments Chest Congestion cough, nasal drainag e x 2 days Care Teams (unrecognized sec tion and content) [employer] Administrator Relationship Specialty Start Date End Date Isiah Lobo, [address] [place] [address] PCP - General Family Medicine 09/18/22 [employer] Administrator Relationship Specialty Start Date End Date Isiah Lobo, [address] [place] [address] PCP - General Family Medicine 09/18/22 [employer] Administrator Relationship Specialty Start Date End Date Isiah Lobo DO [address] [place] [address] PCP General Family Medicine 09/18/22 Team Status: [...] Dr. Stiven Flores MD Emergency Provider Active [employer] Administrator Relationship Specialty Start Date End Date Isiah Lobo DO [address] [place] [address] PCP [facility] Medicine 09/18/22 04/09/24 Team Status: Active Member Role Status [facility] Primary Care Provider Active Team Status: Inactive Member Role Status [facility] Primary Care Provider Active Start: September 26, 2024 End: September 26, 2024 NP. Larisa Leal Attending Provider Active Star t: September 26, 2024 End: September 26, 2024 NP. Larisa Leal Referring Provider Active Star t: September 26, 2024 End: September 26, 2024 Team Status: Inactive Member Role Status [facility] Primary Care Provider Active Start: December 18, 2024 End: December 18, 2024 [facility] Referring Provider Active Start: Samanta johnston 2024 End: December 18, 2024 MARIZA Martinez Attending Provider Active S tart: December 18, 2024 End: December 18, 2024 Team Status: Inactive Member Role Status [facility] Primary Care Provider Active Start: December 25, 2024 End: December 25, 2024 [facility] Referring Provider Active Start: [facility] 2024 End: December 25, 2024 Dr. Marcos Archer MD Attending Provider Active Start: December 25, 2024 End: December 25, 2024 Team Status: Inactive Member Role Status [facility] Primary Care Provider Active Start: December 25, 2024 End: December 25, 2024 Dr. Vickey Espinoza MD Attending Provider Active S tart: December 25, 2024 End: December 25, 2024 Team Status: Active Member Role Status [facility] Primary Care Provider Active Start: January 01, 2025 Shakira Wink Attending Provider Active Start : January 01, 2025 Shakira Wink Referring Provider Active Start : January 01, 2025 Team Status: Inactive Member Role Status [facility] Primary Care Provider Active Start: January 02, 2025 End: January 02, 2025 Dr. Rey Wallace MD Attending Provider Active Start: January 02, 2025 End: January 02, 2025 Dr. Rey Wallace MD Referring Provider Active Start: January 02, 2025 End: January 02, 2025 Team Status: Inactive Member Role Status [facility] Primary Care Provider Active Start: January 01, 2025 End: January 01, 2025 Shakira Wink Attending Provider Active Start : January 01, 2025 End: January 01, 2025 Shakira Wink Referring Provider Active Start : January 01, 2025 End: January 01, 2025 Team Status: Inactive Member Role Status [facility] Primary Care Provider Active Start: January 11, 2025 End: January 11, 2025 MARIZA Martinez Attending Provider Active S tart: January 11, 2025 End: January 11, 2025 Luz Bacon NP-Ochoa Referring Provider Active S tart: January 11, 2025 End: January 11, 2025 Team Status: Inactive Member Role Status [facility] Primary Care Provider Active Start: January 19, 2025 End: January 19, 2025 MARIZA Martinez Attending Provider Active S tart: January 19, 2025 End: January 19, 2025 Luz Bacon NP-Ochoa Referring Provider Active S tart: January 19, 2025 End: January 19, 2025 Team Status: Inactive Member Role Status [facility] Primary Care Provider Active Start: February 06, 2025 End: February 06, 2025 RANDALL Sierra Attending Provider Active Start: February 06, 2025 End: February 06, 2025 RANDALL Lee Referring Provider Active Start : February 06, 2025 End: February 06, 2025 Team Status: Active Member Role Status [facility] Primary Care Provider Active Start: February 06, 2025 End: February 06, 2025 Dr. Raymon Bhakta MD Attending Provider Active Start: February 06, 2025 End: February 06, 2025 Dr. Raymon Bhakta MD Referring Provider Active Start: February 06, 2025 End: February 06, 2025 Team Status: Inactive Member Role Status [facility] Primary Care Provider Active Start: February 19, 2025 End: February 19, 2025 [facility] Referring Provider Active Start: Ap ril 2024 End: February 19, 2025 Dr. Tonio Rogers DO Attending Provider Active Start: February 19, 2025 End: February 19, 2025 Team Status: Active Member Role Status [facility] Primary Care Provider Active Start: February 19, 2025 [facility] Referring Provider Active Start: Ap ril 2024 Dr. Tonio Rogers DO Attending Provider Active Start: February 19, 2025 Dr. Tonio Rogers DO Other Provider Active St art: February 19, 2025 Team Status: Inactive Member Role Status [facility] Primary Care Provider Active Start: March 29, 2025 End: March 29, 2025 Domenic Khan NP MAPLE SUGAR MAKER-C Attending Provider Active Start: March 29, 2025 End: March 29, 2025 Domenic Khan NP, NP-C Referring Provider Active Start: March 29, 2025 End: March 29, 2025 Team Status: Active Member Role Status [facility] Primary Care Provider Active Start: March 29, 2025 Dr. Jaqueline Augustine MD Attending Provider Activ e Start: March 29, 2025 (unrecognized sect ion and content) No Status Records FoundNo Status Records FoundNo Status Records FoundNo Status Records FoundNo Status Records FoundNo Status Records Found INFORMATION SOURCE (unrecogn ized section and content) DATE CREATED AUTHOR 04/19/2023 [facility] DATE CREATED AUTHOR AUTHOR'S ORGANIZ ATION 05/31/2024 [facility] [employer] ([place]) DATE CREATED AUTHOR AUTHOR'S ORGANIZ ATION 11/16/2024 [facility] DATE CREATED AUTHOR AUTHOR'S ORGANIZ ATION 12/25/2024 [facility] DATE CREATED AUTHOR AUTHOR'S ORGANELBA ATION 08/03/2025 [facility] DATE CREATED AUTHOR AUTHOR'S ORGANELBA ATION 08/07/2025 [facility] FOR RECORDS PERTAINING TO PATIENTS [...] BE BASED ON THE PRIMARY CLINICAL RECORDS. [facility] [employer] provides no warranty or guarantee of the accuracy or completeness of information in this document.
[2025-08-09] MEDS: Magnesium 1 GM over 15 mins IV (08:48)
[2025-08-09] MEDS: LR 1,000 ML - BOLUS PREOP 999 ML IV (08:48)
--- NOTE | 2025-08-09 09:05 | PRE.ANES_ITS ---
ASA Classification* ASA Classification ASA Classification: 2 Assessment & Plan Anesthesia* Anesthesia Assessment Anesthesia Assessment: Discussed sedation and/or anesthesia options, risks, benefits, and alternatives with patient/parents/legal guardian/POA. Questions invited. The patient/parents/legal guardian/POA seems to understand and agrees to proceed with anesthesia plan. Reviewed the physical assessment, medical history, allergy history and patient home medications list prior to surgery/procedure/anesthetic and documented any changes. Performed airway and anesthesia risk assessments. Anesthesia Type Anesthesia Type: General, MAC, Spinal and Block History Source History Obtained from:: Patient and Chart Anesthesia Focused Assessment* Temperature: 97.6 F Pulse Rate: 84 Blood Pressure: 124/81 Respiratory Rate: 16 Pulse Ox: 98 Oxygen Delivery Method: Room Air Airway Assessment Mouth opens: >3 cm Mallampati Score: II Teeth Condition: Dentures (Edentulous) Neck Range of motion (ROM): Full ROM Labs Anesthesia Preop lab: CBC WBC, (4.4-11.0) 9.0 K/mm3 02/06/25, 12:47 RBC, (4.6-6.2) 4.73 M/mm3 02/06/25, 12:47 Hgb, (13.0-16.5) 15.2 g/dL 02/06/25, 12:47 Hct, (40-54) 44.3 % 02/06/25, 12:47 Plt Count, (150-450) 216 K/mm3 02/06/25, 12:47 CHEMISTRY Potassium, (3.3-5.1) 4.7 mmol/L 02/06/25, 12:47 Sodium, (133-145) 136 mmol/L 02/06/25, 12:47 BUN, (4-19) 17 mg/dL 02/06/25, 12:47 Creatinine, (0.70-1.20) 1.01 mg/dL 02/06/25, 12:47 Glucose, (70-99) 150 mg/dL H 02/06/25, 12:47 POC Glucose, (74-106) 132 mg/dL H 02/19/25, 05:49 COAG Pre-Assessment Diagnosis/Proposed Procedure Planned Operative Procedure(s): (L) Total Knee Replacement Robotic Arm Radha Anesthesia History Anesthesia History - 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 When Was Last Pacemaker Check QUESTION #4 FULL TEXT: You/Your Family Experience fever (hyperthermia) with Anesthesia Last Oral Intake Last Oral intake: Last Oral Intake NPO since 05:00 08/09/25 08:44 Meds taken in AM with sips of No 08/09/25 08:44 water? Meds patient instructed to take am of surgery PONV PONV - e commerce merchandising coordinator: PONV - e commerce merchandising coordinator Female No 07/11/25 14:21 HX of Motion Sickness No 07/11/25 14:21 HX of N/V After Surgery No 07/11/25 14:21 Non-Smoker No 07/11/25 14:21 Duration of Surgery greater Yes 07/11/25 14:21 than 60 minutes Number of Risk Factors 1 07/11/25 14:21 PONV Score Low Risk 07/11/25 14:21 Height & Weight Height & Weight: Anesthesia: Height & Weight Height 6 ft 1 in 08/09/25 08:44 Weight: 84 kg 08/09/25 08:44 Body Mass Index (BMI) 24.4 08/09/25 08:44 Respiratory Assessment Respiratory Assessment - e commerce merchandising coordinator: Respiratory Tract Infection Hx - e commerce merchandising coordinator Hx Respiratory Tract Infection No 07/11/25 14:21 STOP Sleep Apnea STOP Sleep Apnea - e commerce merchandising coordinator: STOP Sleep Apnea - e commerce merchandising coordinator Hx Hypertension No 07/11/25 14:21 Hx Sleep Apnea No 07/11/25 14:21 CPAP No 07/11/25 14:21 BIPAP No 07/11/25 14:21 Do you snore loudly (louder No 07/11/25 14:21 than talking or can be heard Do you often feel tired/ No 07/11/25 14:21 fatigued/ sleepy during daytime? Has anyone observed you stop No 07/11/25 14:21 breathing during sleep? STOP Results Negative 07/11/25 14:21 QUESTION #5 FULL TEXT : Do you snore loudly (louder than talking or can be heard through closed doors)? Tobacco Use History Tobacco Use History - e commerce merchandising coordinator: Tobacco Use History - e commerce merchandising coordinator Tobacco Use Cigarettes 09/04/20 14:54 Smoking Status Current every day smoker 07/11/25 14:21 Hx Tobacco Use Yes 07/11/25 14:21 Years Smoking Packs Smoked per Day 0.5 07/11/25 14:21 Smoking Cessation Date was within the last 15 years Hx Smoking Cessation Date Hx Smoking Cessation Counseling Hematologic Medial History Hematologic Hx - e commerce merchandising coordinator: Hematologic Medical Hx - folding machine setter Hx of Blood Transfusion No 07/11/25 14:21 Hx of Transfusion in last 3 No 07/11/25 14:21 Months Date of Last Transfusion (if within last 3 months) Ever experience any problems No 07/11/25 14:21 with transfusion(s)? Specify any problems Hx of Preganancy in last 3 N/A 07/11/25 14:21 Months Nurse Filling Out Transfusion NBUCHER 07/11/25 14:21 & Questions: Date: 07/11/25 07/11/25 14:21 Time: 14:23 07/11/25 14:21 Patient unable to answer at this time (ie. confused, unrespo /Reproduction History /Reproductive History - e commerce merchandising coordinator: /Reproductive Hx- e commerce merchandising coordinator Hx Now No 07/11/25 14:21 Gestational Age (in weeks): EDC: Hx Hx Para Hx Section SAB No 07/11/25 14:21 Active Medications Active Medications: Current Medications Generic Name Dose Route Start Last Admin Trade Name Freq PRN Reason Stop Dose Admin Acetaminophen 1,000 mg 08/09/25 10:08/09/25 08:48 Acetaminophen 500 Mg Tablet PO 08/09/25 10:16 1,000 mg PREOP ONE Administration Celecoxib 400 mg 08/09/25 10:15 08/09/25 08:49 Celecoxib 200 Mg Capsule PO 08/09/25 10:16 Not Given PREOP ONE Gabapentin 600 mg 08/09/25 10:15 08/09/25 08:48 Gabapentin 600 Mg Tablet PO 08/09/25 10:16 600 mg PREOP ONE Administration Lactated Ringer's 1,000 mls @ 999 mls/hr 08/09/25 10:15 08/09/25 08:48 IV 08/09/25 11:15 999 mls/hr .Q1H1M GEORGETTE Administration Cefazolin Sodium 2 gm/ Sodium 110 mls @ 150 mls/hr 08/09/25 10:15 Chloride IV 08/09/25 10:58 INTRAOP ONE Tranexamic Acid 1,000 mg/ 110 mls @ 660 mls/hr 08/09/25 10:15 Sodium Chloride IV 08/09/25 10:24 INTRAOP ONE Tranexamic Acid 1,000 mg/ 110 mls @ 660 mls/hr 08/09/25 11:15 Sodium Chloride IV 08/09/25 11:24 INTRAOP ONE Lactated Ringer's 1,000 mls @ 999 mls/hr 08/09/25 11:15 IV 08/09/25 12:15 .Q1H1M GEORGETTE Lactated Ringer's 1,000 mls @ 125 mls/hr 08/09/25 12:15 IV 08/09/25 20:14 .Q8H GEORGETTE Magnesium Sulfate 1 gm/ 102 mls @ 408 mls/hr 08/09/25 10:15 08/09/25 08:48 Dextrose IV 08/09/25 10:29 408 mls/hr PREOP ONE Administration Insulin Human Lispro 1 - 6 unit 08/09/25 10:15 Insulin Lispro 100 Unit/Ml Insuln.Pen SC 08/09/25 16:15 Q4H PRN PRN BG>/= 180, SEE PROTOCOL Protocol PFSH Medical History Wears dentures Wears glasses Anxiety Depression History of steroid therapy Ambulates with cane History of renal disease Fatty liver Migraine headache Dietary restriction Gastric reflux Smoker History of echocardiogram History of stress test Traumatic amputation of ear Finger amputation, traumatic Enlarged prostate Back pain Arthritis Kidney stones Home Medications ?Medication ?Instructions ?Recorded ?Last Taken ?Type alfuzosin 10 mg tablet,extended 10 mg PO DAILY KIDNEYS 08/05/17 02/18/25 History release 24 hr gabapentin 300 mg capsule 300 mg PO BIDCM NERVE PAIN 1 02/18/25 History glimepiride 4 mg tablet 4 mg PO DAILY DIABETES 08/0502/18/25 History meloxicam 15 mg tablet 15 mg PO DAILY PAIN 08/05/17 02/15/25 History fish oil-dha-epa 1,200 mg-144 1 cap PO DAILY SUPPLEMEN T 09/04/20 02/15/25 History mg-216 mg capsule morphine 15 mg tablet,extended 15 mg PO TID PAIN 09/0402/18/25 History release ondansetron 4 mg disintegrating 4 mg PO Q8H PRN PRN Na usea #10 tabs 09/15/22 Unknown Rx tablet aspirin 81 mg tablet,delayed 81 mg PO QDAY HEART HEALT H 12/18/24 02/15/25 History release (Adult Aspirin Regimen) cholecalciferol (vitamin D3) 50 50 mcg PO QDAY SUPPLEM ENT 12/18/24 02/18/25 History mcg (2,000 unit) capsule empagliflozin 25 mg tablet 25 mg PO QDAY DIABETES 11/2602/15/25 History hydroxyzine pamoate 25 mg capsule 25 mg PO QDAY PRN an xiety 12/18/24 Unknown History docusate sodium 100 mg capsule 100 mg PO BID STOOL SOF TENER 02/14/25 02/18/25 History (Colace) psyllium husk 3.4 gram/5.4 gram 1 tbsp PO DAILY SUPPLE MENT 02/14/25 02/18/25 History oral powder (Metamucil) acetaminophen 500 mg/15 mL oral 500 mg PO Q4H PRN pain 02/19/25 02/18/25 History liquid denosumab 60 mg/mL subcutaneous 60 mg subcut QMONTH SAVANNAH NE DENSITY 07/11/25 Unknown History syringe (Prolia) mecobalamin (vitamin B12) 2,500 2,500 mcg PO DAILY SUP PLEMENT 07/11/25 Unknown History mcg chewable tablet pantoprazole 40 mg tablet,delayed 40 mg PO DAILY GERD 07/11/25 Unknown History release Allergy/AdvReac Type Severity Reaction Status Date / Time hydrocodone (From Vicodin) Allergy Rash Verified 08/09/25 08:12 celecoxib (From Celebrex) AdvReac goofy Verified 08/09/25 08:12 Surgical History History of esophagogastroduodenoscopy (EGD) History of rotator cuff surgery H/O lithotripsy Social History Smoking Status: Current every day smoker tobacco type: cigarettes alcohol intake: never substance use type: does not use Review of Systems (Anesthesia) ROS Narrative System reviewed and no additional complaints, except as documented.
[2025-08-09] MEDS: Midazolam 2 MG/2 ML Syringe IV (09:49)
[2025-08-09] MEDS: Cefazolin 1 GM/5 ML Vial 2 GM IV (10:06)
[2025-08-09] MEDS: dexMEDEtomidine 200 MCG/2 ML ML 10 MCG IV (10:12)
[2025-08-09] MEDS: TRANEXAMIC ACID 1,000 MG/10 ML ML 2000 MG IV (11:26)
[2025-08-09] MEDS: JPS (Morphine 10mg/ml) OPERA.SITE (11:33)
--- NOTE | 2025-08-09 12:03 | PCM.POST.ANE ---
Anesthesia: Postop Eval I Current Vital Signs Temperature: 97.6 F Pulse Rate: 99 Blood Pressure: 126/78 Respiratory Rate: 16 Pulse Ox: 94 Assessment Airway patent: Yes Spontaneous unlabored respirations: Yes nausea: No Vomiting: No Anesthesia Complication: No Fluid Hydration Crystalloid volume administer (ml): 1,800 Total IV fluid infused: 1,800 Progress Note Anesthesia document: Postop Eval 1 completed: Yes
--- NOTE | 2025-08-09 12:13 | SUR.PHASEI ---
pt has spinal pre op
--- NOTE | 2025-08-09 13:05 | RAD_ITS ---
PROCEDURE: KNEE 1 OR 2 VIEWS 08/09/2025 REASON FOR EXAM: POST OP TOTAL KNEE TECHNIQUE: Procedure Code: RADK Modality: DX Procedure: KNEE 1 OR 2 VIEWS Laterality: Left knee COMPARISON: None FINDINGS: The patient is status post left total knee replacement. There is good alignment. Postoperative soft tissue changes. RAD/Knee 1 or 2 Views IMPRESSION: Status post left total knee replacement. There is good alignment. Postoperative soft tissue changes. Reading Location: [place] [address]
--- NOTE | 2025-08-09 13:39 | OP.PCM_ITS ---
Operative Report (Standard) Operative Information Date of Procedure: 08/09/25 Pre-Operative Diagnosis: Left knee osteoarthritis Post-Operative Diagnosis: Left knee osteoarthritis Surgery/Procedure Performed: Robotic arm assisted left total knee arthroplasty primary health organisation manager: Yes Inspector Tester Sorter: Yoana Figueroa Tasks completed by first breaker feeder: Opening & closing, Removing tissue, Implanting device and Retracting Type of Anesthesia: Spinal RN Documented Start/Stop Times: Operation Date: 08/09/25 10:15 Case Time Into Pre-Op 08/09/25 08:12 Out of Pre-Op 08/09/25 10:05 Anesthesia Start 08/09/25 10:06 Into Room 08/09/25 10:06 Procedure Start 08/09/25 10:30 Procedure End 08/09/25 11:54 Anesthesia End 08/09/25 12:00 Out of Room 08/09/25 12:00 Into Recovery 08/09/25 12:01 Procedure Start Time: 10:30 Procedure Stop Time: 11:54 Select all DRAINS/GRAFTS/IMPLANTS that apply: Implanted device Implanted device details: Jose press-fit triathlon CR size #5 femur, press-fit size #5 tibia with 11 mm CS polyethylene Estimated Blood Loss: 75 cc Specimen collected: No Description of surgery: Patient was identified in the preoperative holding area by name, medical record number, and date of . Informed set was confirmed with the patient. The operative knee was marked with a surgical marker. At time of his procedure, patient brought to the operative suite and positioned supine a standard operating table. Anesthesia then administered a spinal anesthetic. He was then repositioned in the supine position with all bony prominences well-padded. We then placed a well-padded pneumatic tourniquet on the left upper thigh. The left upper extremity was brought across patient's chest throughout the procedure. We then prepped and draped the left lower extremity in a normal, sterile orthopedic fashion. We performed a timeout with all parties in attendance in agreement with the side, site, operation be performed. No conc erns were voiced and would like to proceed with surgery. 2 g Ancef was administered prior to the incision by anesthesia staff as well as 1 g IV TXA. First exsanguinated the left lower extremity with a Esmarch bandage. Tourniquet was inflated to 250 mmHg which remained elevated for approximately 45 minutes. Esmarch was removed. I planned a standard midline approach to the left knee approximately 15 cm in length. Skin was sharply incised with a 10 blade scalpel developing full-thickness layers down to the retinaculum. Layers were developed identifying the VMO. I then planned a standard medial parapatellar arthrotomy performed in flexion. The anterior horn of the medial meniscus was released. Hoffa's fat pad was then released. I then everted the patella in extension and brought the knee into 90 degrees of flexion. The anterior horn of the lateral meniscus was then released. The ACL was split in its mid substance with a 10 blade. We then brought the knee back into extension. Patella appeared to be minimally degenerative with grade I-II chondromalacia and was left round valley. I then placed pins in the metaphyseal distal femur medial to lateral for the Cristopher arrays. In similar fashion, I made a 2 cm incision approximately a handsbreadth distal to the tibial tubercle along the medial aspect of the tibia, drilling 2 bicortical pins for the tibial array. The knee was brought into flexion. The patella was subluxed laterally but not everted. Medial lateral retractors were placed. We then utilized the [employer] software to confirm our planned surgical procedure and oriented with the patient's osseous anatomy. All checks with the [employer] system were confirmed. Patient had a significant fixed varus deformity after performing stress examination utilizing the [employer] software. We elected to place the tibial baseplate in 3 degrees of varus to allow for appropriate balancing. Sawblade was then brought in. I first started with the tibial cut, ensuring protection of the MCL and patellar tendon. A tibial wafer was then excised. I then proceeded to make the posterior femoral, anterior, anterior chamfer cuts with the same blade. Ligaments were protected with [employer] retractors. Sawblade was then exchanged to perform the distal femoral and posterior chamfer cuts. The robot was then removed from the surgical field. Remaining loose bone and meniscus was excised carefully. Posterior osteophytes were removed from the distal femur with a curved osteotome and rongeur. Trial components were then placed. Balance was excellent in both extension and 90 degrees flexion with 11 mm polyethylene trial.. No mid flexion instability was apparent. Tracking was excellent. We then marked for tibial baseplate. Distal femoral pegs were drilled. Tibial keel was punched. Trials were removed. Periarticular block was administered. The wound was copiously irrigated with normal saline solution. Betadine solution was irrigated into the wound and the wound edges. Tourniquet was deflated. Hemostasis was excellent. An additional 1 g TXA was administered IV. Press-fit components were placed with excellent pullout strength. I trialed the 11 mm polyethylene which achieved excellent range of motion and balance. I selected a size 11 mm polyethylene which was placed and impacted per diesel retrofit installer recommendations. Final components appeared very well balanced with excellent range of motion. There was no significant remaining flexion contracture. The wound was copiously irrigated with normal saline solution. Capsule was closed watertight with #1 strata fix barbed suture. Deeper bursal layer was reapproximated with 0 Vicryl suture. Dermis was reapproximated buried interrupted 2-0 Vicryl suture. Skin was finally reapproximated edel. Patient tolerated the procedure well without apparent complication. He was safely awakened in the operative suite, transferred to his hospital bed and subsequently to PACU in stable condition. Need for skilled it assistant: Yoana Figueroa PA-C was critical to the outcome of the case. During the course of the procedure the physician it assistant played a vital role. Her intimate knowledge of my steps in the procedure aided in safe and expedient completion of the procedure. The PA played a vital role in positioning particularly in obtaining the appropriate positioning. The PA was also vital in the retraction of soft tissues during the exposure and projecting vital structures. The PA was also vital and protecting soft tissues during times of bony cuts. She also played a vital role in closure with my direct supervision. The PA was also important during reduction and dislocation of the joint and trials intraoperatively. Post Operative Plan: Patient will be placed in observation overnight. Anticipate discharge home tomorrow. Weightbearing: Range of motion and weightbearing as tolerated left lower extremity. Antibiotics: Ancef 2 g every 8 hours x 3 doses DVT Prophylaxis: Restart home Xarelto postoperative day #1 Pain medicine: Patient is on chronic scheduled MS Contin. Per pain management recommendations, we will continue with scheduled MS Contin and use oxycodone as needed. Tylenol and meloxicam as well. Vann: None Dressing: Maintain silver dressing x5 days X-Rays: 2-week x-rays in the office. Follow-up: 2 weeks in my office for staple removal Surgical Findings: Severe left knee osteoarthritis with fixed varus deformity Complications Complications: No Admit VTE Documentation VTE Present on Admission: No VTE Mechan Device Prophylaxis: SCD's and Thigh High BRITTANY Hose VTE Pharm Prophylaxis ordered?: Yes
--- NOTE | 2025-08-09 14:09 | POSTOPAN2_ITS ---
Anesthesia Postop Eval I Sum Postop Eval Completion status Anesthesia document: Postop Eval 1 completed: Yes Anesthesia Postop Eval I Summary Anesthesia Postop Eval I Summary: Anesthesia Postop Eval I: Assessment Summary Airway patent Yes 08/09/25 12:03 LABORER AMMUNITION [email or web address] Spontaneous unlabored Yes 08/09/25 12:03 LABORER AMMUNITION [email or web address] respirations Mental status nausea No 08/09/25 12:03 LABORER AMMUNITION [email or web address] Vomiting No 08/09/25 12:03 LABORER AMMUNITION [email or web address] Anesthesia Postop Eval I: Fluid Summary Crystalloid volume administer 1,800 08/09/25 12:03 LABORER AMMUNITION [email or web address] (ml) Colloids volume administered ( ml) Blood Product volume administered (ml) Total IV fluid infused 1,800 08/09/25 12:03 LABORER AMMUNITION [email or web address] Anesthesia Postop Eval I: Summary Notes Anesthesia Complication No 08/09/25 12:03 LABORER AMMUNITION [email or web address] Anesthesia Complication Comment: Post-operative progress note Anesthesia: Postop Eval II Evaluation Mental status: Awake and Calm Pain Level: 1 nausea: No Vomiting: No Complications Anesthesia Complication: No
--- NOTE | 2025-08-09 14:09 | PCM.POSTANE2 ---
Anesthesia Postop Eval I Sum Postop Eval Completion status Anesthesia document: Postop Eval 1 completed: Yes Anesthesia Postop Eval I Summary Anesthesia Postop Eval I Summary: Anesthesia Postop Eval I: Assessment Summary Airway patent Yes 08/09/25 12:03 BILLBOARD POSTER [email or web address] Spontaneous unlabored Yes 08/09/25 12:03 BILLBOARD POSTER [email or web address] respirations Mental status nausea No 08/09/25 12:03 BILLBOARD POSTER [email or web address] Vomiting No 08/09/25 12:03 BILLBOARD POSTER [email or web address] Anesthesia Postop Eval I: Fluid Summary Crystalloid volume administer 1,800 08/09/25 12:03 BILLBOARD POSTER [email or web address] (ml) Colloids volume administered ( ml) Blood Product volume administered (ml) Total IV fluid infused 1,800 08/09/25 12:03 BILLBOARD POSTER [email or web address] Anesthesia Postop Eval I: Summary Notes Anesthesia Complication No 08/09/25 12:03 BILLBOARD POSTER [email or web address] Anesthesia Complication Comment: Post-operative progress note Anesthesia: Postop Eval II Evaluation Mental status: Awake and Calm Pain Level: 1 nausea: No Vomiting: No Complications Anesthesia Complication: No
--- NOTE | 2025-08-09 14:41 | CON.PCM.HO_ITS ---
Assessment & Plan Assessment/Plan (1) Status post left knee replacement: PLAN: Plan Patient is a 74-year-old male who presented to [facility] on 08/09/2025 for planned left knee replacement. Medicine consulted postoperatively for medical management. 1. Left knee osteoarthritis ? Orthopedic surgery primary. S/p left total knee arthroplasty with Dr. Saunders on 08/09. Tolerated procedure well, no intraoperative complications noted. Postoperative pain control with scheduled Tylenol, home gabapentin, home MS Contin, home Mobic and oxycodone as needed per orthopedics. DVT prophylaxis with baby aspirin twice daily per orthopedics. Follow-up a.m. CBC and BMP. PT/OT/case management consulted. 2. Type 2 diabetes mellitus ? Glucose 232 postoperatively. Most recent A1c 8.0% on 02/06. Hold home glimepiride and empagliflozin. Will treat with sliding scale insulin with meals at this time, adjust as needed. 3. Chronic pain with neuropathy ? Home gabapentin, Mobic and MS Contin continued as above. 4. GERD, history of Schatzki ring ? Had EGD done in January and a Schatzki ring was found and esophageal dilation was done. Patient reports no current swallowing issues. Continue home PPI. 5. BPH with obstructive symptoms ? Continue home Flomax. DVT prophylaxis: Baby aspirin twice daily per orthopedics Total clinical time spent by myself addressing the patient's medical issues, reviewing all the data, and collaborating with patient's care team: 36 minutes. HPI Consult Data Date of Consult: 08/09/25 HPI Narrative Reason for Consultation: Postoperative medical management HPI Narrative: ALEXIS LYLES, is a 74 M who presented to [facility] on 08/09/2025 for planned orthopedic procedure. Medicine consulted postoperatively for medical management. Patient had left total knee arthroplasty done with Dr. Saunders today. Tolerated procedure well, no intraoperative complications noted. I saw the patient at bedside this evening postoperatively. Patient was sitting up comfortably in bedside chair, conversing normally, in no acute distress. Reported mild pain in the distal quadriceps area just of the knee but otherwise stated that he was doing well. He had moved from bed to bedside chair without significant issue. Told me that he was wanting to get up to walk on the floor but understood that he could not do this without assistance. No other acute concerns at this time. [facility] Medical History Wears dentures Wears glasses Anxiety Depression History of steroid therapy Ambulates with cane History of renal disease Fatty liver Migraine headache Dietary restriction Gastric reflux Smoker History of echocardiogram History of stress test Traumatic amputation of ear Finger amputation, traumatic Enlarged prostate Back pain Arthritis Kidney stones Home Medications ?Medication ?Instructions ?Recorded ?Last Taken ?Type alfuzosin 10 mg tablet,extended 10 mg PO DAILY KIDNEYS 08/05/17 02/18/25 History release 24 hr gabapentin 300 mg capsule 300 mg PO BIDCM NERVE PAIN 1 02/18/25 History glimepiride 4 mg tablet 4 mg PO DAILY DIABETES 08/0502/18/25 History meloxicam 15 mg tablet 15 mg PO DAILY PAIN 08/05/17 02/15/25 History fish oil-dha-epa 1,200 mg-144 1 cap PO DAILY SUPPLEMEN T 09/04/20 02/15/25 History mg-216 mg capsule morphine 15 mg tablet,extended 15 mg PO TID PAIN 09/0402/18/25 History release ondansetron 4 mg disintegrating 4 mg PO Q8H PRN PRN Na usea #10 tabs 09/15/22 Unknown Rx tablet aspirin 81 mg tablet,delayed 81 mg PO QDAY HEART HEALT H 12/18/24 02/15/25 History release (Adult Aspirin Regimen) cholecalciferol (vitamin D3) 50 50 mcg PO QDAY SUPPLEM ENT 12/18/24 02/18/25 History mcg (2,000 unit) capsule empagliflozin 25 mg tablet 25 mg PO QDAY DIABETES 11/2602/15/25 History hydroxyzine pamoate 25 mg capsule 25 mg PO QDAY PRN an xiety 12/18/24 Unknown History docusate sodium 100 mg capsule 100 mg PO BID STOOL SOF TENER 02/14/25 02/18/25 History (Colace) psyllium husk 3.4 gram/5.4 gram 1 tbsp PO DAILY SUPPLE MENT 02/14/25 02/18/25 History oral powder (Metamucil) acetaminophen 500 mg/15 mL oral 500 mg PO Q4H PRN pain 02/19/25 02/18/25 History liquid denosumab 60 mg/mL subcutaneous 60 mg subcut QMONTH [place] NE DENSITY 07/11/25 Unknown History syringe (Prolia) mecobalamin (vitamin B12) 2,500 2,500 mcg PO DAILY SUP PLEMENT 07/11/25 Unknown History mcg chewable tablet pantoprazole 40 mg tablet,delayed 40 mg PO DAILY GERD 07/11/25 Unknown History release Allergy/AdvReac Type Severity Reaction Status Date / Time hydrocodone (From Vicodin) Allergy Rash Verified 08/09/25 08:12 celecoxib (From Celebrex) AdvReac goofy Verified 08/09/25 08:12 Surgical History History of esophagogastroduodenoscopy (EGD) History of rotator cuff surgery H/O lithotripsy Social History Smoking Status: Current every day smoker tobacco type: cigarettes alcohol intake: never substance use type: does not use ROS Constitutional Constitutional: Denies chills, fatigue, fever(s) or weakness Cardiovascular Cardiovascular: Denies chest pain Respiratory/Chest Respiratory/Chest: Denies shortness of breath at rest Gastrointestinal Gastrointestinal: Denies abdominal pain Genitourinary Genitourinary: Denies dysuria Musculoskeletal Musculoskeletal: Reports joint pain; Denies arthralgias or myalgias Neurologic Neurologic: Denies dizziness, focal weakness, headache(s), numbness or tingling Physical Exam Const alert, oriented x3, no apparent distress, average body habitus, healthy appearing and well nourished Constitutional Narrative: Pleasant elderly male, sitting back comfortably in bedside chair, conversing normally, in no acute distress. General Appearance: cooperative, comfortable, well kempt and well developed HEENT normocephalic, head/scalp atraumatic, hearing grossly normal bilaterally, nasal mucous membranes and turbinates normal and moist oral mucous membranes Eyes PERRL, EOMs intact bilaterally and conjunctivae normal Neck full ROM Chest inspection of chest normal Resp normal respiratory effort, normal air movement, no use of accessory muscles and clear to auscultation bilaterally Cardio regular rate, regular rhythm, no murmurs and peripheral pulses 2+ throughout GI normal to inspection, nondistended, normoactive bowel sounds, soft to palpation, non-tender and non-distended Back/Spine normal ROM Extremity Extremity Narrative: Left knee with surgical dressing and ice pack in place. Psych mental status grossly normal Lab / Micro Data Labs: Laboratory Results - last 24 hr 08/09/25 08:43: POC Glucose 175 H Imaging Radiology Impression Knee X-Ray 08/09/25 13:05 IMPRESSION: Status post left total knee replacement. There is good alignment. Postoperative soft tissue changes. Reading Location: [facility] Charges/Coding Visit Charges Inpatient E&M: 90321 Subs Hosp L2
[2025-08-09] MEDS: morphine SR 15 MG Tablet PO ×2 (14:53→21:50)
[2025-08-09] MEDS: Senna/Docusate Sodium 1 Tablet 2 TABLET PO (21:50)
[2025-08-09] MEDS: 0.9% Saline Lock 10 ML Syringe IV (21:51)
[2025-08-10 02:02] VITALS: BP 118/60; PULSE 107; RESP 16; TEMP 36.5; O2SAT 99
[2025-08-10 05:13] VITALS: BP 102/71; PULSE 107; RESP 16; TEMP 36.5; O2SAT 96
[2025-08-10] MEDS: morphine SR 15 MG Tablet PO ×2 (05:17→13:45)
[2025-08-10 05:34] LABS: Hematocrit 42.4 % (40-54); Hemoglobin 14.3 g/dL (13.0-16.5); Immature Granulocytes Count 0.070 X10^3/uL (0.0-0.0); Mean Corp Hgb Conc 33.7 g/dL (32-36); Mean Corpuscular Volume 93.8 fL (80-94); Mean Platelet Vol. 10.3 fl (6.2-12.0); NRBC Flagged by Analyzer 0 % (0-5); POSITIVE DIFFERENTIAL YES; POSITIVE MORPHOLOGY YES; Platelet Count 196 K/mm3 (150-450); RBC Distribution Width CV 13.6 % (11.6-14.6); RBC Distribution Width SD 46.5 fl (35.1-43.9); Red Blood Count 4.52 M/mm3 (4.6-6.2); White Blood Count 20.6 K/mm3 (4.4-11.0)
[2025-08-10 05:37] LABS: Differential Indicated SCAN CRITERIA MET
[2025-08-10 06:47] LABS: Calcium,Total 8.6 mg/dL (7.6-11.0); Carbon Dioxide 22.2 mmol/L (21.0-32.0); Estimated Creatinine Clearance 85.46 ml/min (50-250)
[2025-08-10 07:01] LABS: Anion Gap 11 (5-15); BUN 19 mg/dL (4-19); BUN/Creat Ratio 21.9 RATIO (10-20); Chloride 103 mmol/L (98-108); Glucose 200 mg/dL (70-99); Potassium 4.6 mmol/L (3.3-5.1)
[2025-08-10 07:22] LABS: Differential Comment SCANNED
[2025-08-10 07:39] VITALS: BP 106/67; PULSE 100; RESP 16; TEMP 36.6; O2SAT 99
[2025-08-10] MEDS: Senna/Docusate Sodium 1 Tablet 2 TABLET PO (07:47)
[2025-08-10] MEDS: FLU VACCINE HIGH DOSE 25-26(65YR UP) 180 MCG/0.5 ML SYRINGE IM (10:28)
--- NOTE | 2025-08-10 11:49 | DS.PCM_ITS ---
Providers Date of Admission: 08/09/25 Date of Discharge: 08/10/25 Primary Care Physician: [place] [facility] Consultations 08/09/25 12:04 Consult: Hospitalist Routine Consulting Provider: Richardson Jean Baptiste Reason for Consult: total knee post op medical management EMERGENT Consult: No MD Notified: Yes Date Notified: 08/09/25 Time Notified: 14:36 Method of Notification: Text Reason For Visit: Total Knee Replacement Robotic Arm Radha Diagnosis Discharge Diagnosis (1) Status post left knee replacement: Status: Acute Code(s): Z96.652 - Presence of left artificial knee joint Plan: 1. Will continue PT today. Weightbearing as tolerated 2. plan for discharge this afternoon following PT 3. Patient will follow up for post op appointment in 2 weeks as previously scheduled 4. Patient has outpatient PT appointment Wednesday as previously scheduled 5. WBC 20.6 acute reactive leukocytosis: secondary to pre operative decadron. no acute systemic signs of infection. will monitor, and likely self resolve. 6. H/H 14.3/42.4: post operavtive anemia secondary to acute blood loss intraoperatively. Patient is asymptomatic at this time. No intraoperative complications. will continue to monitor. no acute interventions. 7. DVT prophylaxis : Aspirin 81 mg twice daily x 4 weeks 8. Pain control: patient instructed to take tylenol 500mg 2 tablets TID. and oxycodone 1-2 tablets every 4-6 hours only as needed for pain control. 9. Patient also given a prescription of meloxicam, Pepcid, senna 10. ok to remove post op dressing. post op day 5 Medications at Discharge Home Medications alfuzosin 10 mg tablet,extended release 24 hr 10 mg PO DAILY KIDNEYS 08/05/17 gabapentin 300 mg capsule 300 mg PO BIDCM NERVE PAIN 08/05/17 glimepiride 4 mg tablet 4 mg PO DAILY DIABETES 08/05/17 meloxicam 15 mg tablet 15 mg PO DAILY PAIN 08/05/17 fish oil-dha-epa 1,200 mg-144 mg-216 mg capsule 1 cap PO DAILY SUPPLEMENT 09/04/20 morphine 15 mg tablet,extended release 15 mg PO TID PAIN 09/04/20 ondansetron 4 mg disintegrating tablet 4 mg PO Q8H PRN PRN Nausea #10 tabs 09/15/22 aspirin 81 mg tablet,delayed release (Adult Aspirin Regimen) 81 mg PO QDAY [facility] 12/18/24 Held on 08/10/25. Instructions: Resume on 09/07/25. cholecalciferol (vitamin D3) 50 mcg (2,000 unit) capsule 50 mcg PO QDAY SUPPLEMENT 12/18/24 empagliflozin 25 mg tablet 25 mg PO QDAY DIABETES 12/18/24 hydroxyzine pamoate 25 mg capsule 25 mg PO QDAY PRN anxiety 12/18/24 docusate sodium 100 mg capsule (Colace) 100 mg PO BID STOOL SOFTENER 02/14/25 psyllium husk 3.4 gram/5.4 gram oral powder (Metamucil) 1 tbsp PO DAILY SUPPLEMENT 02/14/25 denosumab 60 mg/mL subcutaneous syringe (Prolia) 60 mg subcut QMONTH BONE DENSITY 07/11/25 mecobalamin (vitamin B12) 2,500 mcg chewable tablet 2,500 mcg PO DAILY SUPPLEMENT 07/11/25 pantoprazole 40 mg tablet,delayed release 40 mg PO DAILY GERD 07/11/25 acetaminophen 500 mg tablet 1,000 mg (2 x 500 mg) PO Q8H #180 tabs 08/10/25 aspirin 81 mg chewable tablet 81 mg PO BID 4 weeks #56 tabs 08/10/25 oxycodone 5 mg tablet 5 - 10 mg (1 - 2 x 5 mg) PO .q4-6hrs prn PRN Pain Score 4- 10 7 days #60 tabs 08/10/25 Hospital Course Operations total knee replacement Summary of Care Provided Hospital Course: Patient is s/p left robotic assisted total knee arthroplasty with Dr. Saunders 08/09/2025. Patient resting comfortably in bed. Rates pain 4/ 10 at rest. With movement 5/10. States taking Tylenol, oxycodone, MS Contin which he takes at baseline and ice help to relieve pain. Patient has been up with therapy. Walking with the assit of a walker. Afebrile, no chest pain, shortness of breath, negative calf pain/ erythema, and no other signs of DVT. Physical Exam Narrative Patient resting comfortably in bed No signs of acute distress Satting well on room air Limb is warm to touch, Sensation intact throughout entire lower extremity, including saphenous, sural, superficial and deep peroneal, and tibial distribution. DP/PT pulses bounding. Dorsiflexion plantarflexion strength 5/5 Dressing clear dry intact Calf nontender to palpation, no erythema, no edema. Negative Homans Weight / BMI Weight Weight: 84 kg Body Mass Index (BMI) 24.4 ABG / Lab / Microbiology Data 08/10/25 05:16 08/10/25 05:16 Laboratory: Laboratory Results - last 24 hr 08/09/25 14:27: POC Glucose 232 H 08/09/25 16:51: POC Glucose 312 H 08/09/25 21:48: POC Glucose 292 H 08/10/25 05:16: WBC 20.6 H, RBC 4.52 L, Hgb 14.3, Hct 42.4, MCV 93.8, MCH 31.6, MCHC 33.7, RDW Std Deviation 46.5 H, RDW Coeff of Dane 13.6, Plt Count 196, MPV 10.3, Immature Gran % (Auto) 0.300, Neut % (Auto) 65.3, Lymph % (Auto) 8.6 L, [place] % (Auto) 6.5, Eos % (Auto) 19.1 H, Baso % (Auto) 0.2, Absolute Neuts (auto) 13.5 H, Absolute Lymphs (auto) 1.78, Nucleated RBC % 0, Differential Comment SCANNED, Sodium 136, Potassium 4.6, Chloride 103, Carbon Dioxide 22.2, Anion Gap 11, BUN 19, Creatinine 0.87, Estim Creat Clear Calc 85.46, Est GFR (MDRD) Non-Af 91, BUN/Creatinine Ratio 21.9 H, Glucose 200 H, Calcium 8.6 08/10/25 06:20: POC Glucose 220 H 08/10/25 11:07: POC Glucose 258 H Microbiology: Microbiology 07/19/25 09:17 Swab (Method) Nasal Screen MRSA/MSSA - Final Radiography Diagnostic Testing: Radiology Impression Knee X-Ray 08/09/25 13:05 IMPRESSION: Status post left total knee replacement. There is good alignment. Postoperative soft tissue changes. Reading Location: [place] [address] D/C Instructions Weight Bearing Status: Weight bearing as tolerated Call your doctor if your incision/area has: Continuous Slow Oozing, Sudden Increased Bleeding, Increased Pain/ Swelling, Increased Redness, Foul Smelling Discharge and Swelling at the incision site Call your doctor if you observe: Fever of 101 or Higher, Inability to urinate, Inability to have a bowel movement, Shortness of breath, Dizziness, Chest pain, Calf discomfort and Uncontrolled pain Remove Dressing in: 1 week Cleanse incision/area with: Soap & Water and Keep Dressing Clean & Dry DC O2, CPAP, BIPAP Needs Home O2 Discharge instructions: No DC home with Oxygen: No When: With [facility] in 2 weeks Meaningful Use Info Meaningful Use Meaningful Use Diagnoses (Choose all that apply): None applicable Discharge Plan Admission Admit Date/Time: 08/09/25 12:04 Attending Provider: Alcides Ch Primary Care Provider: [facility],[place] Consulting Providers: Richardson Jean Baptiste; Harshad Saunders Discharge Orders/Prescriptions Prescriptions: New acetaminophen 500 mg Tablet 1,000 mg PO Q8H Qty: 180 0RF aspirin 81 mg Tablet,Chewable 81 mg PO BID 28 Days Qty: 56 0RF oxycodone 5 mg Tablet 5 - 10 mg PO .q4-6hrs prn PRN (Reason: Pain Score 4-10) 7 Days Qty: 60 0RF Continued hydroxyzine pamoate 25 mg capsule 25 mg PO QDAY PRN (Reason: anxiety) empagliflozin 25 mg tablet 25 mg PO QDAY Patient Comments: LAST DOSE WILL BE 02/15/25 cholecalciferol (vitamin D3) 50 mcg (2,000 unit) capsule 50 mcg PO QDAY meloxicam 15 MG tablet 15 mg PO DAILY glimepiride 4 MG tablet 4 mg PO DAILY gabapentin 300 MG capsule 300 mg PO BIDCM alfuzosin 10 MG tablet extended release 24 hr 10 mg PO DAILY fish oil-dha-epa 1 EACH capsule 1 cap PO DAILY morphine 15 MG tablet extended release 15 mg PO TID ondansetron 4 MG tablet 4 mg PO Q8H PRN PRN (Reason: Nausea) Qty: 10 0RF docusate sodium [Colace] 100 mg capsule 100 mg PO BID Metamucil 3.4 gram/5.4 gram powder 1 tbsp PO DAILY Rx Instructions: mix into at least 8 oz of water or juice before administering mecobalamin (vitamin B12) 2,500 mcg tablet,chewable 2,500 mcg PO DAILY Prolia 60 mg/mL syringe 60 mg subcut QMONTH pantoprazole 40 mg tablet,delayed release (DR/EC) 40 mg PO DAILY Held aspirin [Adult Aspirin Regimen] 81 mg tablet,delayed release (DR/EC) 81 mg PO QDAY Hold Instructions: Resume on 09/07/25. Discontinued acetaminophen 500 mg/15 mL liquid 500 mg PO Q4H PRN (Reason: pain) Other Ambulatory Orders: 12 Lead EKG (Routine) Location: None Selected Ordered By: Dr. Gorge Sal Referrals / [facility] [Primary Care Provider, None] Disposition Disposition (needs filled in before D/C Order can be placed): Home, Self Care
--- NOTE | 2025-08-10 13:07 | CASEMGMT ---
AGUS CM into pt room, pt sitting up in chair with at bedside. Pt has outpt therapy set up at [facility] on Wednesday. Pt has a walker present in room. Pt denies any homegoing needs at this time and is anxious to dc.
--- NOTE | 2025-08-10 13:27 | CASEMGMT ---
PARRA Met with patient to complete PARRA form. PARRA form and its content were verbally explained and patient's questions were answered to the best of my ability.? Patient voiced understanding and signed PARRA form.? Patient provided a copy of signed PARRA form and original placed in patient's chart.? Patient had no further questions. Sima Yuen, Discharge Planning Asst
[2025-08-10 13:38] VITALS: BP 111/57; PULSE 102; RESP 18; TEMP 36.6; O2SAT 97
--- NOTE | 2025-08-10 13:43 | PHA.DC.MC.R ---
Pharmacy [facility] Counseling Pharmacy Service has performed discharge medication reconciliation and counseling for this patient. 1. ACETAMINOPHEN 1000MG PO Q8 2. ASPIRIN 81MG PO BID, THEN RESUME DAILY ON 09/07/25 3. OXYCODONE 5-10MG PO Q4-6H PRN PAIN (patient also on morphine SR, patient says he talked to PA about when to take vs oxycodone for breakthrough) The patient's discharge medication list was reviewed for discrepancies and discrepancies were resolved. The patient was counseled on the following discharge medications and changes in medications for homegoing were reviewed. The Reason for Use, instructions for use, and potential side effects were reviewed for all new medications. The patient's questions regarding all of their medications were answered. The patient was able to verbally demonstrate an understanding of their discharge medications. Medications at Discharge Home Medications alfuzosin 10 mg tablet,extended release 24 hr 10 mg PO DAILY KIDNEYS 08/05/17 gabapentin 300 mg capsule 300 mg PO BIDCM NERVE PAIN 08/05/17 glimepiride 4 mg tablet 4 mg PO DAILY DIABETES 08/05/17 meloxicam 15 mg tablet 15 mg PO DAILY PAIN 08/05/17 fish oil-dha-epa 1,200 mg-144 mg-216 mg capsule 1 cap PO DAILY SUPPLEMENT 09/04/20 morphine 15 mg tablet,extended release 15 mg PO TID PAIN 09/04/20 ondansetron 4 mg disintegrating tablet 4 mg PO Q8H PRN PRN Nausea #10 tabs 09/15/22 aspirin 81 mg tablet,delayed release (Adult Aspirin Regimen) 81 mg PO QDAY [facility] 12/18/24 Held on 08/10/25. Instructions: Resume on 09/07/25. cholecalciferol (vitamin D3) 50 mcg (2,000 unit) capsule 50 mcg PO QDAY SUPPLEMENT 12/18/24 empagliflozin 25 mg tablet 25 mg PO QDAY DIABETES 12/18/24 hydroxyzine pamoate 25 mg capsule 25 mg PO QDAY PRN anxiety 12/18/24 docusate sodium 100 mg capsule (Colace) 100 mg PO BID STOOL SOFTENER 02/14/25 psyllium husk 3.4 gram/5.4 gram oral powder (Metamucil) 1 tbsp PO DAILY SUPPLEMENT 02/14/25 denosumab 60 mg/mL subcutaneous syringe (Prolia) 60 mg subcut QMONTH BONE DENSITY 07/11/25 mecobalamin (vitamin B12) 2,500 mcg chewable tablet 2,500 mcg PO DAILY SUPPLEMENT 07/11/25 pantoprazole 40 mg tablet,delayed release 40 mg PO DAILY GERD 07/11/25 acetaminophen 500 mg tablet 1,000 mg (2 x 500 mg) PO Q8H #180 tabs 08/10/25 aspirin 81 mg chewable tablet 81 mg PO BID 4 weeks #56 tabs 08/10/25 oxycodone 5 mg tablet 5 - 10 mg (1 - 2 x 5 mg) PO .q4-6hrs prn PRN Pain Score 4-10 7 days #60 tabs 08/10/25
== END 2025-08-10 13:53 | disposition home or self-care (01) ==
LOC: SDC 13:30 → MS3 13:30
PROVIDERS: Hospitalist; Admitting Provider Student in an Organized Health Care Education/Training Program; Referring Provider Student in an Organized Health Care Education/Training Program; Visit Provider Internal Medicine
PROC: 0SRD0JZ Replacement of Left Knee Joint with Synthetic Substitute, Open Approach (ICD-10-PCS; CPT 27447; principal; 2025-08-09 09:45)
DX: M17.12 Unilateral primary osteoarthritis, left knee (principal); E11.9 Type 2 diabetes mellitus without complications; G62.9 Polyneuropathy, unspecified; K21.9 Gastro-esophageal reflux disease without esophagitis; G89.29 Other chronic pain; N40.1 Benign prostatic hyperplasia with lower urinary tract symptoms; N13.8 Other obstructive and reflux uropathy; Z79.899 Other long term (current) drug therapy; Z79.82 Long term (current) use of aspirin; F17.210 Nicotine dependence, cigarettes, uncomplicated; G47.30 Sleep apnea, unspecified; Z79.84 Long term (current) use of oral hypoglycemic drugs
CPT/HCPCS: 27447; S2900; 01402; 36415; 73560; 80048; 82962; 85025; 87081; 93005; 94668; 97162; 99221; C1776; A4216; G0378; J2405; J3475

== ENCOUNTER 2025-08-14 20:04 | Emergency (ER) | payer MEDICARE, OTHER, SELFPAY ==
[2025-08-14 20:06] VITALS: BP 128/108; PULSE 143; RESP 24; TEMP 36.1; O2SAT 100
[2025-08-14 21:39] VITALS: BP 124/79; PULSE 126; RESP 18; TEMP 36.1; O2SAT 100; BMI 24.2
[2025-08-14 22:00] VITALS: BP 137/65; PULSE 118; RESP 18; TEMP 36.6; O2SAT 98
[2025-08-14 22:55] VITALS: BP 144/72; PULSE 116; RESP 18; TEMP 36.4; O2SAT 100
== END 2025-08-14 23:29 | disposition home or self-care (01) ==
PROVIDERS: Emergency Provider Emergency Medicine; Visit Provider Emergency Medicine
DX: G89.18 Other acute postprocedural pain (principal); E11.9 Type 2 diabetes mellitus without complications; M54.9 Dorsalgia, unspecified; G89.29 Other chronic pain; F41.9 Anxiety disorder, unspecified; F32.A Depression, unspecified; K76.0 Fatty (change of) liver, not elsewhere classified; K21.9 Gastro-esophageal reflux disease without esophagitis; F17.210 Nicotine dependence, cigarettes, uncomplicated; Z79.82 Long term (current) use of aspirin; Z79.84 Long term (current) use of oral hypoglycemic drugs; Z96.651 Presence of right artificial knee joint; Z87.442 Personal history of urinary calculi; Z79.899 Other long term (current) drug therapy
CPT/HCPCS: 96372; 99284

== ENCOUNTER 2025-10-13 15:48 | Emergency (ER) | payer MEDICARE, OTHER, SELFPAY ==
[2025-10-13 15:49] VITALS: BP 142/102; PULSE 126; RESP 18; TEMP 36.4; O2SAT 97; BMI 23.8
--- NOTE | 2025-10-13 16:07 | EDS_ITS ---
HPI History of Present Illness Chief Complaint: Back Informant: patient Onset/Context/Timing Onset: Yesterday Context: Gradual Onset Timing: Continuous Quality: Sharp and Burning Location: Lumbar Worsened by: improves with Nothing Relieved by: Nothing Associated Symptoms Associated Symptoms: Negative for Numbness, Tingling, Radiation to Right Leg, Radiation to Left Leg, Fever, Abdominal Pain, Dysuria, Unable to Ambulate, Unable to Transfer, Urinary Retention, Urinary Incontinence, Constipation or Fecal Incontinence Narrative Narrative: Patient presents with back pain that became worse today. Patient states that he saw his pain management physician and had his oral morphine increased from 15 mg to 30 mg. Patient states that they were unable to fill this at his routine pharmacy. Patient states he called the pharmacy at [facility] here in and was told that they have the medication there. Patient states he needs enough to get through until Wednesday. Patient denies any new trauma or injury. Patient describes the pain as sharp and burning. Patient states it is constant. Patient states it is over the lower lumbar area. Patient denies any radiation of the pain. Patient denies any bowel or bladder changes. Patient denies any saddle anesthesia. Prior similar symptoms: With Prior Back Pain [facility] Medical History Wears dentures Wears glasses Anxiety Depression History of steroid therapy Ambulates with cane History of renal disease Fatty liver Migraine headache Dietary restriction Gastric reflux Smoker History of echocardiogram History of stress test Traumatic amputation of ear Finger amputation, traumatic Enlarged prostate Back pain Arthritis Kidney stones Home Medications ?Medication ?Instructions ?Recorded ?Last Taken ?Type alfuzosin 10 mg tablet,extended 10 mg PO DAILY KIDNEYS 08/05/17 02/18/25 History release 24 hr gabapentin 300 mg capsule 300 mg PO BIDCM NERVE PAIN 1 02/18/25 History glimepiride 4 mg tablet 4 mg PO DAILY DIABETES 08/0502/18/25 History meloxicam 15 mg tablet 15 mg PO DAILY PAIN 08/05/17 02/15/25 History fish oil-dha-epa 1,200 mg-144 1 cap PO DAILY SUPPLEMEN T 09/04/20 02/15/25 History mg-216 mg capsule morphine 15 mg tablet,extended 15 mg PO TID PAIN 09/0402/18/25 History release ondansetron 4 mg disintegrating 4 mg PO Q8H PRN PRN Na usea #10 tabs 09/15/22 Unknown Rx tablet cholecalciferol (vitamin D3) 50 50 mcg PO QDAY SUPPLEM ENT 12/18/24 02/18/25 History mcg (2,000 unit) capsule empagliflozin 25 mg tablet 25 mg PO QDAY DIABETES 11/2602/15/25 History hydroxyzine pamoate 25 mg capsule 25 mg PO QHS PRN anx iety 12/18/24 Unknown History docusate sodium 100 mg capsule 100 mg PO BID STOOL SOF TENER 02/14/25 02/18/25 History (Colace) psyllium husk 3.4 gram/5.4 gram 1 tbsp PO DAILY SUPPLE MENT 02/14/25 02/18/25 History oral powder (Metamucil) denosumab 60 mg/mL subcutaneous 60 mg subcut QMONTH [place] NE DENSITY 07/11/25 Unknown History syringe (Prolia) mecobalamin (vitamin B12) 2,500 2,500 mcg PO DAILY SUP PLEMENT 07/11/25 Unknown History mcg chewable tablet pantoprazole 40 mg tablet,delayed 40 mg PO DAILY GERD 07/11/25 Unknown History release acetaminophen 500 mg tablet 1,000 mg (2 x 500 mg) PO Q 8H #180 08/10/25 Unknown Rx tabs aspirin 81 mg chewable tablet 81 mg PO BID 4 weeks #56 tabs 08/10/25 Unknown Rx ondansetron 4 mg disintegrating 4 mg PO TID PRN nausea and 08/14/25 Unknown Rx tablet vomiting #21 tabs tramadol 100 mg tablet 100 mg PO Q6H PRN pain 5 day s #20 08/14/25 Unknown Rx tabs morphine 30 mg tablet,extended 30 mg PO Q12H 2 days #5 tabs 10/13/25 Unknown Rx release Allergy/AdvReac Type Severity Reaction Status Date / Time oxycodone Allergy Mild Nausea/Vom/ Verified 10/13/25 15:52 Diarrhea hydrocodone (From Vicodin) Allergy Rash Verified 10/13/25 15:52 celecoxib (From Celebrex) AdvReac goofy Verified 10/13/25 15:52 Surgical History History of left knee replacement Status post left knee replacement History of esophagogastroduodenoscopy (EGD) History of rotator cuff surgery H/O lithotripsy Social History Smoking Status: Current every day smoker tobacco type: cigarettes alcohol intake: never substance use type: does not use ROS ROS ED Constitutional Constitutional ED: Denies chills or fever(s) Eyes Eyes: Denies blurry vision or change in vision ENT ENT ED: Denies rhinorrhea or sore throat Cardiovascular Cardiovascular: Denies chest pain or palpitations Respiratory/Chest Respiratory/Chest: Denies cough or dyspnea Gastrointestinal Gastrointestinal: Denies nausea or vomiting Genitourinary Genitourinary ED: Denies dysuria or hematuria Musculoskeletal Musculoskeletal: Reports back pain and neck pain Integumentary Denies abscess or rash Neurologic Neurologic: Denies headache(s) or weakness Allergic/Immunologic Allergic/Immunologic ED: Denies mouth swelling or urticaria EXAM Physical Exam Const Vital Signs: 10/13/25 15:49 10/13/25 16:28 10/13/25 16:39 Temperature 97.6 F L 97.6 F L 97.6 F L Temperature Source Oral Pulse Rate 126 H 126 H 126 H Respiratory Rate 18 18 18 Blood Pressure 142/102 H 142/102 H 142/102 H Blood Pressure Mean 115 115 115 Pulse Ox 97 97 97 Oxygen Delivery Method Room Air Positive well nourished and well developed General Appearance ED: well developed and NAD HEENT Reports moist mucous membranes Neck supple and no JVD Back/Spine Back/Spine Narrative: There is tenderness of the lower lumbar spine and paraspinal muscles. There is no bony crepitance or step-off noted. Range of motion was slightly limited in all motions of the lumbar spine secondary to pain. Strength is 5/5 bilaterally in lower extremities. There are no sensory deficits noted. Deep tendon reflexes are 2/4 bilaterally in the lower extremities. Lumbar Spine / Lower Back: ROM limited Extremity normal to inspection General Extremety ED: Negative for edema or tenderness General Extremity: Negative for edema Neuro oriented x3 and no sensory deficits noted Sensorium / Orientation: alert Motor Exam: strength 5/5 throughout Deep Tendon Reflexes: Rt Patellar (L4): 2+, Lt Patellar (L4): 2+, Rt Ankle (S1): 2+ and Lt Ankle (S1): 2+ Deep Tendon Reflexes Back: Rt Patellar (L4): 2+, Lt Patellar (L4): 2+, Rt Ankle (S1): 2+ and Lt Ankle (S1): 2+ Psych mental status grossly normal MDM MDM MDM Narrative Medical decision making narrative: Patient was given a prescription for 2 days worth of his morphine. Patient was instructed to contact his pain management physician on Wednesday for further instructions and prescriptions. Patient was instructed to return if worse in any way. Patient understood and was agreeable with the plan. All questions were answered. Discharge Plan Triage Chief Complaint: Back ED Provider: Tristin Wood Dx/Rx/DC Orders Clinical Impression: Chronic pain syndrome, Diabetes mellitus, Tobacco use Instructions: ED Back Pain (Acute or Chronic), ED Chronic Pain Prescriptions: New morphine 30 mg tablet extended release 30 mg PO Q12H 2 Days Qty: 5 0RF No Action hydroxyzine pamoate 25 mg capsule 25 mg PO QHS PRN (Reason: anxiety) empagliflozin 25 mg tablet 25 mg PO QDAY cholecalciferol (vitamin D3) 50 mcg (2,000 unit) capsule 50 mcg PO QDAY meloxicam 15 MG tablet 15 mg PO DAILY glimepiride 4 MG tablet 4 mg PO DAILY gabapentin 300 MG capsule 300 mg PO BIDCM alfuzosin 10 MG tablet extended release 24 hr 10 mg PO DAILY fish oil-dha-epa 1 EACH capsule 1 cap PO DAILY morphine 15 MG tablet extended release 15 mg PO TID ondansetron 4 MG tablet 4 mg PO Q8H PRN PRN (Reason: Nausea) Qty: 10 0RF ondansetron 4 mg tablet,disintegrating 4 mg PO TID PRN (Reason: nausea and vomiting) Qty: 21 1RF tramadol 100 mg tablet 100 mg PO Q6H PRN (Reason: pain) 5 Days Qty: 20 0RF docusate sodium [Colace] 100 mg capsule 100 mg PO BID Metamucil 3.4 gram/5.4 gram powder 1 tbsp PO DAILY Rx Instructions: mix into at least 8 oz of water or juice before administering mecobalamin (vitamin B12) 2,500 mcg tablet,chewable 2,500 mcg PO DAILY Prolia 60 mg/mL syringe 60 mg subcut QMONTH Rx Instructions: every 6 month infusion pantoprazole 40 mg tablet,delayed release (DR/EC) 40 mg PO DAILY acetaminophen 500 mg Tablet 1,000 mg PO Q8H Qty: 180 0RF aspirin 81 mg Tablet,Chewable 81 mg PO BID 28 Days Qty: 56 0RF Primary Care Provider: [facility] Referrals: Kumar Bro MD [Med Staff - Active Staff, Pain Management] - Keep Oli appointment [facility],[place] [Primary Care Provider, None] - 5-7 Days Print Language: Argentine Disposition Disposition: Home, Self Care Discharge Date/Time: 10/13/25 16:39
[2025-10-13 16:28] VITALS: BP 142/102; PULSE 126; RESP 18; TEMP 36.4; O2SAT 97
--- OUTSIDE RECORDS SUMMARY | 2025-10-13 16:33 | XMS RPT_ITS | CCD ---
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 Larisa Leal Attending Provider [phone] NP. Larisa Leal Referring Provider [phone] [place] Primary Care [place] Referring Provider Luz Sandra Attending Provider [phone] Gianni HUNTER, Dr. Rodríguez Attending Provider Olga HUNTER, Dr. Hurd Attending Provider Shakira Dee Attending Provider Shakira Dee Referring Provider Dr. Rey Wallace MD Attending Provider [phone] Dr. Rey Wallace MD Referring Provider Luz Hector Referring Provider [phone] [place] Primary Care Provider Unavailabl e Mckenna Dill Attending Provider Yoana Chambers Referring Provider Dr. Raymon Bhakta MD Attending Provider Dr. Raymon Bhakta MD Referring Provider [place] Referring Provider Unavailable Ken MCKENNA, Dr. Elizalde Attending Provider Ken MCKENNA, Dr. Elizalde Other Provider [phone] Domenic Irene Attending Provider Domenic Irene Referring Provider Fawn HUNTER, Dr. Parsons Attending Provider [facility] Primary Care Physician GABY GRAY DO Attending Unavailable PHYSICIAN, PATIENT UNSURE Primary Care Gal SANTANA MD, JEROME Attending Unavailable [facility] Primary Care Unavailable YOANA LION PA-C Attending Unavailable PHYSICIAN, PATIENT UNSURE Primary Care YOANA Delgadillo PA-C Attending Unavailable PHYSICIAN, PATIENT UNSURE Primary Care YOANA Delgadillo PA-C Attending Unavailable [facility] Primary Care Unavailable [facility] [place] Primary Care Physician Unavailab Dr. Raymon Palm MD Attending Physician [phone] Nicky MCKENNA, Dr. Patricia Referring Provider [place] Primary Care Physician UnavailDr. Harshad Martínez DO Admitting Physician Dr. Harshad Lima DO Nurse Practitioner Dr. Richardson Jean Baptiste DO Nurse Practitioner Dr. Alcides Ch DO Attending Physician Dr. Richardson Jean Baptiste DO Attending Physician Dr. Win Smiley DO Emergency Department Physic rianna Yoana Lion Referring Unavailable Mckenna Dill Attending [facility] [place] Primary Care Unavailable Raymon Bhakta Referring Unavailable Raymon Bhakta Attending [facility] [place] [facility] [place] [facility] Unavailable Vickey Espinoza Attending [facility] [place] Referring Unavailable Luz Bacon [facility] [place] [facility] Unavailable Marcos Archer Att[facility] Referring [facility] Unavailable Richardson Jean Baptiste Attending Unavailable Richardson Jean Baptiste Consulting Unavailable Spittle, Harshad Referring Unavailable Spittle, Harshad Admitting [facility] Unavailable Spittle, Harshad Consulting [facility] Referring [facility] Unavailable Friend, Tonio Attending Unavailable Friend, Tonio Consulting Unavailable [facility]queline Augustine [facility] [place] [facility] Unavailable Mel, Larisa Referring Unavailable Paris, Larisa Attending [facility] Unavailable Jordi, Luz Referring Unavailable Bacon, Luz Attending Unavailable Jung, Allyse Referring Unavailable Jung, Allyse Attending [facility] Unavailable Bacon, Luz Referring Unavailable Bacon, Luz Attending [facility] Referring [facility] Unavailable Friend, Tonio Attending Unavailable Richardson Jean Baptiste Consulting Unavailable Spittle, Harshad Referring Unavailable Spittle, Harshad Admitting [facility] Unavailable Alcides Ch Attending Unavailable Spittle, Harshad Consulting [facility] Unavailable 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 Raymon Palm MD Attending Physician Nicky MCKENNA, Dr. Patricia Referring Provider [facility] Physician Unavailab Dr. Harshad Senior DO Admitting Physician Dr. Harshad Lima DO Nurse Practitioner Dr. Richardson Jea nBaptiste DO Nurse Practitioner Dr. Alcides Ch DO Attending Physician Dr. Richardson Jean Baptiste DO Attending Physician Dr. Win Smiley DO Attending Physician Dr. Win Smiley DO Emergency Department Physic rianna Allergies Allergy Classification Reported Allergen(s) Allergy Type Date of Onset Reaction(s) Facility (20 sources) Acetaminophen / HYDROcodone; Translations: [acetaminophen-hy drocodone] Drug Allergy 0 Hives [facility] Comment on above: called and talked to Hortensia Sam RN and she spoke with patient and patient stated that he has taken plain tylenol and had no reaction to it but when pt took vicodin then vicodin caused hives and delusions------lmr [facility] 1040 12/16/14 (20 sources) Amoxicillin; Translations: [amoxicillin] Drug Allergy 2 Headache (finding), Nausea (finding), Dyspnea (finding), Intolerance, GI Upset, Shortness of Breath [facility] (20 sources) buPROPion; Translations: [bupropion] Drug Allergy 2 Nausea (finding), Unknown, GI Upset [facility] (20 sources) celecoxib; Translations: [celecoxib] Drug Allergy 0 Mental Status Change [facility] (20 sources) varenicline; Translations: [varenicline] Drug Allergy 2 Unknown [facility] Comment on above: makes him loopy (19 sources) HYDROcodone; Translations: [HYDROCODONE] Drug Allergy 2 Rash [facility] (8 sources) metFORMIN; Translations: [METFORMIN] Drug Allergy 8 GI Upset [facility] (1 source) Acetaminophen / HYDROcodone; Translations: [HYDROCODONE-ACET AMINOPHEN] Drug Allergy 0 [facility] (2 sources) oxyCODONE Drug Allergy 5 Nausea/Vom/Diar kajal [facility] (1 source) celecoxib Drug Allergy 5 [facility] (1 source) HYDROcodone Drug Allergy 5 [facility] (1 source) oxyCODONE Drug Allergy 5 [facility] Medications Current Medications Medication Drug Class(es) Dates Sig (Normalized) Sig (Original) acetaminophen 500 mg oral tablet (5 sources) Start: 08-10-2025 take 2 tablets by mouth every eight hours Acetaminophen 500 mg Tablet Active 1000 mg PO Q8H 180 0 August 09, 2025 11:00pm Complies with drug therapy Start: 02-19-2025 End: 08-10-2025 take 500 mg by mouth every four hours as needed for pain Acetaminophen 500 mg/15 mL liquid Discontinued 500 mg PO Q4H as needed for pain February 18, 2025 11:00pm August 10, 2025 10:53am acetaminophen 325 mg / oxyCODONE hydrochloride 5 mg oral tablet (1 source) Opioid Agonist Start: 09-15-2022 take 1 tablet by mouth every six hours as needed Oxycodone-Acetaminophen Active 1 TABLET PO EVERY 6 HOURS NEEDED 12 3 September 15, 2022 [id number] 200 actuat albuterol 0.09 mg/actuat metered dose [...] tablet (20 sources) alpha-Adrenergic Tony Start: 08-05-2017 take 1 tablet by mouth once daily Alfuzosin 10 MG tablet extended release 24 hr Active 10 mg PO DAILY August 04, 2017 11:00pm KIDNEYS Complies with drug therapy Comment on above: Take 10 mg by mouth. aspirin 81 mg chewable tablet (20 sources) Platelet Aggregation Inhibitor, Nonsteroidal Anti-inflammator y Drug Start: 08-10-2025 take 1 tablet by mouth twice daily Aspirin 81 mg Tablet,Chewable Active 81 mg PO TWICE A DAY 56 28 0 August 09, 2025 11:00pm Complies with drug therapy Start: 12-18-2024 End: 08-14-2025 take 1 tablet by mouth once daily Aspirin (Adult Aspirin Regimen) 81 mg tablet,delayed release (DR/EC) Discontinued 81 mg PO daily December 18, 2024 12:00am August 14, 2025 8:43pm [facility] On Hold: Resume on 09/07/25. Start: 12-16-2014 aspirin 81 mg oral tablet [...] # 90 tab(s), 5 Refill(s), Pharmacy: [facility] [facility], Trouble in sleeping Anxiety depression, 183, cm, 03/12/22 8:43:00 EDT, Height Start Date: 03/12/22 Status: Ordered cholecalciferol 0.05 mg oral capsule (15 sources) Vitamin D Start: 12-18-19 take 1 capsule by mouth once daily Cholecalciferol (Vitamin D3) 50 mcg (2,000 unit) capsule Active 50 ug PO daily December 18, 2024 12:00am SUPPLEMENT Complies with drug therapy Start: 05-10-2019 cholecalcifero l, vitamin D3, 10 mcg (400 unit) cap 2,000 Units. 05/10/2019 Active Comment on above: 2,000 Units. 1 ml denosumab 60 mg/ml prefilled syringe (2 sources) RANK Ligand Inhibitor Start: 07-11-2025 Denosumab (Prolia) 60 mg/mL syringe Active 60 mg SC EVERY MONTH July 10, 2025 11:00pm BONE DENSITY every 6 month infusion Complies with drug therapy docusate sodium 100 mg oral capsule (20 sources) Start: 02-14-2025 take 1 capsule by mouth twice daily Docusate Sodium (Colace) 100 mg capsule Active 100 mg PO TWICE A DAY February 13, 2025 11:00pm STOOL SOFTENER Complies with drug therapy Start: 11-05-2017 docusate sodiu m (COLACE) 100 mg capsule 100 mg. 11/05/2017 Active Start: 11-05-2017 take 1 dose by mouth twice daily Colace Dose : 100 mg =, Oral, BID, 0 Refill(s) Start Date: 11/05/17 Status: Ordered Medication Dispense Status: Completed Total Allowed Fills: 1 Fills Dispensed: 0 Comment on above: 100 mg. empagliflozin 25 mg oral tablet (19 sources) Sodium-Glucose Cotransporter 2 Inhibitor Start: 12-18-19 take 1 tablet by mouth once daily Empagliflozin 25 mg tablet Active 25 mg PO daily December 18, 2024 12:00am DIABETES Complies with drug therapy Start: 05-10-2019 empagliflozin 10 mg oral tablet [...] 12:00am Start: 09-04-2020 take 1 capsule by [facility] once daily Fish Oil-Dha-Epa Active 1 CAP PO DAILY September 04, 2020 1:00am Fish Oil-Dha-Epa 1 EACH capsule (8 sources) Start: 09-04-2020 take 1 capsule by mouth once daily Fish Oil-Dha-Epa 1 EACH capsule Active 1 NMA PO DAILY September 04, 2020 12:00am SUPPLEMENT Complies with drug therapy Start: 09-04-2020 take 1 capsule by mo uth once daily Fish Oil-Dha-Epa 1 EACH capsule Active 1 NMA PO DAILY September 04, 2020 1:00am SUPPLEMENT Complies with drug therapy Start: 09-04-2020 take 1 capsule by mo uth once daily Fish Oil-Dha-Epa 1 EACH capsule Active 1 NMA PO DAILY September 04, 2020 1:00am Fish Oils (11 sources) Start: 09-12-2017 Fish Oil 1000 mg [...] capsule (20 sources) Anti-epileptic Agent Start: 08-05-2017 take 1 capsule by mouth twice daily at mealtime Gabapentin 300 MG capsule Active 300 mg PO TWICE DAILY WITH MEALS August 04, 2017 11:00pm NERVE PAIN Complies with drug therapy Comment on above: 300 mg. glimepiride 4 mg oral tablet (20 sources) Sulfonylurea Start: 12-16-2014 take 1 tablet by mouth once daily Glimepiride 4 MG tablet Active 4 mg PO DAILY August 04, 2017 11:00pm DIABETES Complies with drug therapy Comment on above: Take 4 mg by mouth. 12 hr guaiFENesin 600 mg extended release oral tablet (2 sources) Start: 11-14-2024 End: 11-21-2024 take 2 tablets by mouth twice daily guaiFENesin (MUCINEX) 600 mg 12 hr tablet Indications: Chest congestion Take 2 tablets by mouth two times a day for 7 days. 28 tablet 11/14/2024 11/21/2024 Active hydrOXYzine pamoate 25 mg oral capsule (9 sources) Antihistamine Start: 12-18-2024 take 1 capsule by mouth at bedtime as needed for anxiety Hydroxyzine Pamoate 25 mg capsule Active 25 mg PO AT BEDTIME as needed for anxiety December 18, 2024 12:00am Complies with drug therapy Start: 09-04-2020 take 25-50 mg by hero th at bedtime Hydroxyzine Pamoate Active 25 - 50 MG PO AT BEDTIME September 04, 2020 1:00am losartan potassium 25 mg oral tablet (10 sources) Angiotensin 2 Receptor Tony Start: 05-12-2023 losartan 25 mg oral tablet Dose : 25 mg = 1 tab(s), Oral, qDay, # 90 tab(s), 1 Refill(s), [facility]: [id number], Hypertension associated with type 2 diabetes mellitus, [...] # 90 tab(s), 1 Refill(s), Pharmacy: [facility] Diabetes, 183, cm, 03/03/22 14:20:00 EDT, Height Start Date: 03/03/22 Status: Ordered Mecobalamin (Vitamin B12) (2 sources) Start: 07-11-2025 take 1 tablet by mouth once daily Mecobalamin (Vitamin B12) 2,500 mcg tablet,chewable Active 2500 ug PO DAILY July 10, 2025 11:00pm SUPPLEMENT Complies with drug therapy Start: 07-11-2025 take 1 tablet by hero th once daily Mecobalamin (Vitamin B12) 2,500 mcg tablet,chewable Active 2500 ug PO DAILY July 11, 2025 12:00am SUPPLEMENT Complies with drug therapy meloxicam 15 mg oral tablet (20 sources) Nonsteroidal Anti-inflammatory Drug Start: 08-05-2017 take 1 tablet by mouth once daily Meloxicam 15 MG tablet Active 15 mg PO DAILY August 04, 2017 11:00pm PAIN Complies with drug therapy Comment on above: 15 mg. morphine sulfate [...] tablet by hero th three times daily Morphine 15 MG tablet extended release Active 15 mg PO THREE TIMES A DAY September 04, 2020 12:00am PAIN Complies with drug therapy Comment on above: take 1 tablet by mouth three times a day if needed for pain nitrofurantoin, macrocrystals 25 mg / nitrofurantoin, monohydrate 75 mg oral capsule (1 source) Nitrofuran Antibacterial Start: End: take 1 capsule by mouth twice daily nitrofurantoin monohydrate and macrocrystal (MACROBID) 100 mg capsule Take 1 capsule by mouth twice daily for 5 days. 10 capsule 0 09/18/2022 09/23/2022 Active Comment on above: Take 1 capsule by mo [facility] twice daily for 5 days. omega 6-eyc-lxh-fish oil (FISH OIL) 100-160-1,000 mg cap (7 sources) Start: 017 take 100-160 capsules by mouth once daily omega 1-han-uui-fish oil (FISH OIL) 100-160-1,000 mg cap Take 1,000 mg by mouth once daily. 09/12/2017 Active Start: 09-12-2017 take 100-160 capsule s by mouth once daily omega 3-oyr-twv-fish oil (FISH OIL) 100-160-1,000 mg cap Take 1,000 mg by mouth once daily. 0 09/12/2017 Active Comment on above: Take 1,000 mg by hero th once daily. ondansetron 4 mg disintegrating oral tablet (19 sources) Serotonin-3 Receptor Antagonist Start: 08-14-2025 take 1 tablet by mouth three times daily as needed for nausea and vomiting Start: 08-14-2025 take 1 tablet by hero th three times daily as needed for nausea and vomiting Start: 09-15-2022 take 1 tablet by hero th every eight hours as needed for nausea Ondansetron 4 MG tablet Active 4 mg PO EVERY 8 HOURS NEEDED as needed for Nausea 10 September 15, 2022 12:00am Complies with drug therapy Start: 07-08-2020 take 1 tablet by hero th three times daily ondansetron orally disintegrating (ZOFRAN ODT) 4 mg disintegrating tablet 4 mg three times daily. 07/08/2020 Active Comment on above: 4 mg three times coleen ly. pantoprazole 40 mg delayed release oral tablet (20 sources) Proton Pump Inhibitor Start: take 1 tablet by mouth once daily Pantoprazole 40 mg tablet,delayed release (DR/EC) Active 40 mg PO DAILY July 10, 2025 11:00pm GERD Complies with drug therapy Start: 09-09-2022 End: 07-11-2025 take 1 tablet by mouth twice daily Pantoprazole 40 mg tablet,delayed release (DR/EC) Discontinued 40 mg PO TWICE A DAY 60 2 December 18, 2024 11:32am July 11, 2025 1:18pm psyllium 3400 mg powder for oral suspension (3 sources) Start: 02-14-2025 Psyllium Husk (Metamucil) 3.4 gram/5.4 gram powder Active 1 tbsp PO DAILY February 13, 2025 11:00pm SUPPLEMENT mix into at least 8 oz of water or juice before administering Complies with drug therapy tamsulosin hydrochloride 0.4 mg oral capsule (7 sources) alpha-Adrenerg ic Tony tamsulosin (FLOMAX) 0.4 mg Take 0.4 mg by mouth. Active Comment on above: Take 0.4 mg by mouth . traMADol hydrochloride 100 mg oral tablet (11 sources) Opioid Agonist Start: 08-14-2025 take 1 tablet by mouth every six hours as needed for pain Start: 08-14-2025 take 1 tablet by hero th every six hours as needed for pain Start: 12-20-2022 End: 02-14-2025 take 1 tablet by mouth every four hours as needed for pain Tramadol 50 mg tablet Discontinued 50 mg PO EVERY 4 HOURS NEEDED as needed for Pain 10 2 0 December 20, 2022 12:00am February 14, 2025 1:39pm traZODone hydrochloride 50 mg oral tablet (1 source) Serotonin Reuptake Inhibitor Start: 07-04-2021 End: 11-01-2021 traZODone 50 mg oral tablet Dose : 50 mg = 1 tab(s), Oral, qHS, # 90 tab(s), 1 Refill(s), Pharmacy: [address], Trouble in sleeping, 183.5, cm, 07/04/21 10:00:00 EDT, Height, kg, 07/04/21 10:00:00 EDT, Dosing Weight Start Date: 07/04/21 Stop Date: 11/01/21 Status: Ordered Vitamin D3 (11 sources) Start: 05-10-2019 Vitamin D3 Dos e : [...] MDI (90 mcg/inh) CFC free inhalation aerosol (5 sources) Start: 12-23-2022 End: 03-23-2023 take 2 puff(s) by inhalation every four hours albuterol MDI (90 mcg/inh) CFC free inhalation aerosol 2 puff(s), Inhalation, q4h, # 1 EA, 2 Refill(s), Pharmacy: [facility] #[id number], Viral bronchitis Heavy smoker, 182, cm, 12/23/22 [...] q4h, # 1 EA, 2 Refill(s), Pharmacy: [facility] #[id number], Viral bronchitis Heavy smoker, 182, cm, 12/23/22 [...] q4h, # 1 EA, 2 Refill(s), Pharmacy: [facility] #[id number], Viral bronchitis Heavy smoker, 182, cm, 12/23/22 8:59:00 EST, Height Start Date: 12/23/22 Stop Date: 03/23/23 Status: Ordered amitriptyline hydrochloride 10 mg oral tablet (5 sources) Tricyclic Antidepressant Start: 05-12-2023 End: 08-10-2023 amitriptyline 10 mg oral tablet Dose : 10 mg = 1 tab(s), Oral, qHS, Aware of age. Medication works well for patient, # 90 tab(s), 1 Refill(s), [facility]: [id number], Trouble in sleeping Recurrent major depression, 182.5, cm, 05/12/23 10:30:00 EDT, Height, kg, 05/12/23 10:30:00 EDT, Dosing Weight Start Date: 05/12/23 Stop Date: 08/10/23 Status: Ordered Medication Dispense Status: Completed Quantity: 90.0 Unit: tab(s) Total Allowed Fills: 2 Fills Dispensed: 0 Indications: Major depressive disorder, recurrent, unspecified; Sleep disorder, unspecified; amoxicillin 875 mg / clavulanate 125 mg oral tablet (9 sources) Penicillin-class Antibacterial Start: 12-20-2022 End: 12-18-2024 take 1 tablet by mouth every twelve hours Amoxicillin-Pot Clavulanate 875-125 mg tablet Discontinued 875 mg PO Q12H 20 0 December 20, 2022 12:00am December 18, 2024 11:01am ergocalciferol 1.25 mg oral capsule (11 sources) Provitamin D2 Compound Start: 09-04-2020 End: 12-18-2024 take 1 capsule by mouth once daily Ergocalciferol (Vitamin D2) 50,000 UNIT capsule Discontinued 50 U PO DAILY September 04, 2020 12:00am December 18, 2024 11:00am Start: 09-04-2020 Ergocalciferol (Vitamin D2) Active 43870 UNIT PO .FRIDAY September 04, 2020 12:00am oxyCODONE hydrochloride 5 mg oral tablet (2 sources) Opioid Agonist Start: 08-10-2025 End: 08-14-2025 take 5-10 mg by mouth every four to six hours as needed for pain Oxycodone 5 mg Tablet Discontinued 5 - 10 mg PO .q4-6hrs prn as needed for Pain Score 4-10 60 7 0 August 10, 2025 August 14, 2025 8:45pm Status post left knee replacement Presence of left artificial knee joint Problems Active Problems Problem Classification Problem Date Documented Date Episodic/Chronic Acute bronchitis (16 sources) Acute bronchitis; Translations: [Acute bronchitis, unspecified] 12-20-2022 Episodic Anxiety disorders (20 sources) Anxiety; Translations: [Mixed anxiety and depressive disorder] Onset: 11-14-1905-09-2019 Chronic Calculus of urinary tract (20 sources) Kidney stone; Translations: [Calculus of kidney] 12-16-2014 Episodic Chronic kidney disease (13 sources) Chronic kidney disease stage 3; Translations: [Stage 3 chronic kidney disease] Onset: 11-14-1909-04-2020 Chronic Chronic obstructive pulmonary disease and bronchiectasis (2 sources) Bronchitis; Translations: [Bronchitis, not specified as acute or chronic] Episodic Diabetes mellitus with complications (7 sources) Type II diabetes mellitus uncontrolled 05-12-2023 Chronic Diabetes mellitus without complication (20 sources) Diabetes mellitus; Translations: [Type 2 diabetes mellitus without complications] Onset: 11-14-1912-16-2014 Chronic Diabetes mellitus without complication (1 source) Glycosuria; Translations: [Glycosuria] Episodic Disorders of lipid metabolism (13 sources) Hypertriglyceridemia 05-09-2019 Chronic E Codes: Adverse effects of medical drugs (2 sources) Adverse reaction to biological substance; Translations: [Adverse effect of unspecified drugs, medicaments and biological substances, initial encounter] Onset: 08-13-20 Episodic Esophageal disorders (20 sources) Gastroesophageal reflux disease; Translations: [Gastro-esophageal reflux disease without esophagitis] Onset: 11-14-1905-09-2019 Chronic Esophageal disorders (2 sources) Esophageal disorders; Translations: [Gastro-esophageal reflux disease with esophagitis, without bleeding] Onset: 12-18-19 Essential hypertension (9 sources) Hypertensive disorder; Translations: [Essential (primary) hypertension] Onset: 11-14-1905-12-2023 Chronic Genitourinary symptoms and ill-defined conditions (1 source) Scalding pain on urination ; Translations: [Dysuria] 04-10-2024 Episodic Headache; including migraine (1 source) Headache; Translations: [Headaches] 11-14-2024 Episodic Hyperplasia of prostate (13 sources) Benign prostatic hyperplasia 03-11-2016 Chronic Malaise and fatigue (13 sources) Fatigue 02-23-2020 Episodic Mood disorders (9 sources) Recurrent major depression; Translations: [Major depressive disorder, recurrent, unspecified] Onset: 11-14-192023 Chronic Nonspecific chest pain (1 source) Tight chest; Translations: [Other chest pain] 11-14-2024 Episodic Nutritional deficiencies (13 sources) Vitamin D deficiency 02-23-2020 Chronic Osteoarthritis (14 sources) Arthritis; Translations: [Unilateral primary osteoarthritis, left knee] Onset: 08-15-2012-16-2014 Chronic Other acquired deformities (14 sources) Lumbar spondylolisthesis; Translations: [Spondylolisthesis, lumbar region] 12-25-2024 Episodic Other circulatory disease (1 source) Pulmonary congestion ; Translations: [Other specified symptoms and signs involving the circulatory and respiratory systems] 11-14-2024 Episodic Other connective tissue disease (4 sources) History of total knee arthroplasty; Translations: [Presence of left artificial knee joint] 08-18-2025 Chronic Other connective tissue disease (1 source) Presence of left artificial knee joint; Translations: [Presence of left artificial knee joint] Onset: 08-13-20 Chronic Other disorders of stomach and duodenum (15 sources) Delayed gastric emptying; Translations: [Functional dyspepsia] 12-18-2024 Episodic Other gastrointestinal disorders (20 sources) Dysphagia; Translations: [Dysphagia, unspecified] 12-22-2019 Episodic Other injuries and conditions due to external causes (11 sources) Food lodged in esophagus; Translations: [Food in esophagus causing other injury, initial encounter] 08-16-2022 Episodic Other injuries and conditions due to external causes (1 source) Foreign body in esophagus; Translations: [Food in esophagus causing other injury, initial encounter] Onset: 12-03-19 Episodic Other liver diseases (13 sources) Steatosis of liver 05-09-2019 Chronic Other lower respiratory disease (15 sources) Dyspnea; Translations: [Dyspnea, unspecified] 01-09-2021 Episodic Other lower respiratory disease (1 source) Cough; Translations: [Acute cough] 11-14-2024 Episodic Other nervous system disorders (11 sources) Chronic pain syndrome; Translations: [Chronic pain syndrome] 09-04-2020 Chronic Other nervous system disorders (2 sources) Postoperative pain ; Translations: [Other acute postprocedural pain] 08-14-2025 Episodic Other nutritional; endocrine; and metabolic disorders (11 sources) Overweight in adulthood with body mass index of 25 or more but less than 30 08-14-2022 Episodic Other upper respiratory infections (2 sources) Acute upper respiratory infection; Translations: [Acute upper respiratory infection, unspecified] Episodic Otitis media and related conditions (16 sources) Acute left otitis media; Translations: [Otitis media, unspecified, left ear] 12-20-2022 Episodic Poisoning by other medications and drugs (1 source) Adverse reaction to drug 08-13-2025 Episodi c Residual codes; unclassified (13 sources) Insomnia 10-04-2019 Episodic Residual codes; unclassified (13 sources) Needs influenza immunization 07-30-2020 Episodic Residual codes; unclassified (13 sources) Requires vaccination 07-04-2021 Episodic Residual codes; unclassified (13 sources) Tobacco user 06-21-2019 Episodic Residual codes; unclassified (11 sources) Tobacco use and exposure - finding; Translations: [Tobacco use] 11-20-2013 Episodic Screening and history of mental health and substance abuse codes (1 source) Personal history of nicotine dependence; Translations: [Personal history of nicotine dependence] Onset: 03-29-20 Episodic Spondylosis; intervertebral disc disorders; other back problems (15 sources) Lumbar spondylosis; Translations: [Spondylosis without myelopathy or radiculopathy, lumbar region] Onset: 12-26-1912-25-2024 Chronic Spondylosis; intervertebral disc disorders; other back problems (17 sources) Chronic low back pain; Translations: [Acute low back pain] Onset: 08-25-20 25 09-13-2017 Episodic Substance-related disorders (13 sources) Smoker 06-21-2019 Chronic Superficial injury; contusion (1 source) Contusion of knee; Translations: [Contusion of unspecified knee, initial encounter] Onset: 08-20-20 Episodic Transient cerebral ischemia (15 sources) Transient cerebral ischemia; Translations: [Transient cerebral ischemic attack, unspecified] Onset: 11-14-1903-11-2016 Chronic Unclassified (20 sources) Patient encounter status 03-03-2022 Unclassified (12 sources) Statin not tolerated (context-dependent category) 11-04-2021 [...] conditions (not mental disorders or infectious disease) (15 sources) Viral screening status; Translations: [Encounter for screening for malignant neoplasm of respiratory organs] Onset: 03-29-2023 08-14-2022 Episodic Sprains and strains (4 sources) Injury of multiple muscles and tendons at shoulder and upper arm level; Translations: [Strain of other muscles, fascia and tendons at shoulder and upper arm level, left arm, subsequent encounter] Onset: 02-12-2025 Episodic Results Test Name Value Interpretation Reference Range Facility [facility] 08-22-2025 [facility] Telephone ([id number]) AGAPITO MESSER ([id number]) 1950 M Date Time Provider Department 08/22/25 TONY BERRIOS [facility] During your visit today, we recorded the following information about you: Carlos Horton 08/22/2025 3:12 PM Signed The patient is coming in for lower back due to spinal block pain. The referring physician is Jenny. The patient has medicare insurance. Have you had Pain Management in the past 3 years? Yes If yes, where? Dr. Kumar Martinez [facility] last seen 07/16/2025 (We will need these records prior to scheduling patient) Are you currently taking pain medication? Yes If so, please list: morphine and gabapentin. (Our providers will NOT take over prescribing or managing medications that are already being prescribed by another provider unless it is deemed appropriate after reviewing their records.) Carlos Horton Allergies As of Date: 08/22/2025 Noted Allergy Reaction AMOXICILLIN 09/18/2022 5 - Intolerance 8 - GI Upset 12 - Shortness of Breath BUPROPION 09/18/2022 16 - Unknown 8 - GI Upset CELEBREX (CELECOXIB) 10/04/2020 1 - Mental Status Change HYDROCODONE 08/08/2022 2 - Rash METFORMIN 11/24/2017 8 - GI Upset VARENICLINE 09/18/2022 16 - Unknown Comments: makes him loopy VICODIN (HYDROCODONE-ACETAMINOPHE*1 12/05/2019 4 - Hives Comments: tightness in chest Date Reviewed: 11/14/2024 Reviewed by: Tomas Oneal PA-C - Fully Assessed Prescriptions as of 08/22/2025 - fluticasone (FLONASE) 50 mcg/actuation nasal spray Use 2 Sprays in each nostril once daily. Rinse mouth after use. - albuterol HFA (PROAIR HFA) 90 mcg/actuation inhaler Inhale 2 Puffs as instructed every 6 hours as needed. - docusate sodium (COLACE) 100 mg capsule 100 mg. - omega 4-kss-lwt-fish oil (FISH OIL) 100-160-1,000 mg cap Take [...] times daily. 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] 11/14/2024 Hypertension [I10] 11/14/2024 Gastroesophageal reflux disease [K21.9] 11/14/2024 Encounter Status:Closed by CARLOS HORTON on 08/22/25 [facility] Emergency Department Summary on 08-14-2025 Emergency Department Summary [facility] Medical Records Department [address] [place] [address] Emergency Department Summary 08/14/25 MR#: [id number] Acct: [id number] Name: AGAPITO MESSER Rep #: [id number] : 1950 74 From: Win Smiley DO PCP: PR Hospital Status:DEP ER Location: ED HPI History of Present Illness Chief Complaint: Back Informant: patient and spouse/S.O. Narrative Narrative: Patient is a 74-year-old male with past medical history of chronic back pain who takes oral morphine for this and has done this over the past 7 years. He recently had his right knee replaced. Secondary to the surgery he was prescribed oxycodone. He states he was taking this but then began having side effects of headache nausea vomiting and after a few doses also felt like he was having tongue and throat swelling. He was seen at an outside hospital and advised to not take the medication any longer. He states he is trying just using Tylenol on top of his morphine but the pain has been uncontrollable to the point where he cannot sleep. He denies any chest pain or shortness of breath fevers or chills but states because of the intractable pain he presents for evaluation Regarding his back pain he denies any loss of bowel or bladder control or IV drug use. He states has been no recent back procedures such as injections or surgery. [facility] Medical History (Updated 08/15/25 @ 06:[address] Win Smiley DO) Wears dentures Wears glasses Anxiety Depression History [...] 15 mg PO DAILY PAIN 08/05/1702/15 History fish oil-dha-epa 1,200 mg-144 1 cap PO DAILY SUPPLEMENT 09/04/20 02/15/25 History mg-216 mg capsule morphine 15 mg tablet,extended 15 mg PO TID PAIN 09/04/20 5 History release ondansetron 4 mg disintegrating 4 mg PO Q8H PRN PRN Nausea #10 tab s 09/15/22 Unknown Rx tablet cholecalciferol (vitamin D3) 50 50 mcg PO QDAY SUPPLEMENT 12/18/24 02/18/25 History mcg (2,000 unit) capsule empagliflozin 25 mg tablet 25 mg PO QDAY DIABETES 12/18/24 History hydroxyzine pamoate 25 mg capsule 25 mg PO QHS PRN anxiety 12/18/24 Unknown History docusate sodium 100 mg capsule 100 mg PO BID STOOL SOFTENER 02/1402/18/25 History (Colace) psyllium husk 3.4 gram/5.4 gram 1 tbsp PO DAILY SUPPLEMENT 5 02/18/25 History oral powder (Metamucil) denosumab 60 mg/mL subcutaneous 60 mg subcut QMONTH BONE DENSITY 0 07/11/25 Unknown History syringe (Prolia) mecobalamin (vitamin B12) 2,500 2,500 mcg PO DAILY SUPPLEMENT 06/25 05/18 Unknown History mcg chewable tablet pantoprazole 40 mg tablet,delayed 40 mg PO DAILY GERD 07/11/25 Unkn own History release acetaminophen 500 mg tablet 1,000 mg (2 x 500 mg) PO Q8H #180 08/10/25 Unknown Rx tabs aspirin 81 mg chewable tablet 81 mg PO BID 4 weeks #56 tabs 07/25 05/18 Unknown Rx ondansetron 4 mg disintegrating 4 mg PO TID PRN nausea and 5 Unknown Rx tablet vomiting #21 tabs tramadol 100 mg tablet 100 mg PO Q6H PRN pain 5 days #20 08/14/25 Unknown Rx tabs Allergy/AdvReac Type Severity Reaction Status Date / Time oxycodone Allergy Mild Nausea/Vom/ Verified 08/14/25 20:06 Diarrhea hydrocodone (From Vicodin) Allergy Rash Verified 08/14/25 20:06 celecoxib (From Celebrex) AdvReac goofy Verified 08/14/25 20:06 Surgical History (Updated 08/14/25 @ 21:41 by Itzel Begum) History of left knee replacement History of esophagogastroduodenoscopy (EGD) History of rotator cuff surgery H/O lithotripsy Social History Smoking Status: Current every day smoker tobacco type: cigarettes alcohol intake: never substance use type: does not use ROS ROS ED Constitutional Constitutional ED: Denies chills or fever(s) Eyes Eyes: Denies blurry vision or change in vision ENT ENT ED: Denies sore throat Cardiovascular Cardiovascular: Denies chest pain, palpitations or racing heartbeat Respiratory/Chest Respiratory/Chest: Denies cough or dyspnea Gastrointestinal Gastrointestinal: Denies abdominal pain, diarrhea, nausea or vom (more content not included)... Normal [facility] .Auto Diffon 08-13-2025 Basophil, Absolute 0.1 10 3/mcL Normal 0.0-0.3 [facility] Comment on above: Performed By: #### A DIFF, TROPHS, APTT, CBC, ANEU, PRO, MDW #### [address] [place], [place] [address] Basophils/100 WBC (Bld) 0.6 % Normal 0.0-2.5 [facility] Comment on above: Performed By: #### A DIFF, TROPHS, APTT, CBC, ANEU, PRO, MDW #### [address] [place], [place] [address] Eosinophil, Absolute 0.2 10 3/mcL Normal 0.0-0.7 [facility] Comment on above: Performed By: #### A DIFF, TROPHS, APTT, CBC, ANEU, PRO, MDW #### [address] [address] Eosinophils/100 WBC (Bld) 1.8 % Normal 0.0-6.0 [facility] Comment on above: Performed By: #### A DIFF, TROPHS, APTT, CBC, ANEU, PRO, MDW #### [address] [address] Lymphocyte, Absolute 2.3 10 3/mcL Normal 0.9-4.3 [facility] Comment on above: Performed By: #### A DIFF, TROPHS, APTT, CBC, ANEU, PRO, MDW #### [address] [address] Lymphocytes/100 WBC (Bld) 22.7 % Normal 20.0-40.0 [facility] Comment on above: Performed By: #### A DIFF, TROPHS, APTT, CBC, ANEU, PRO, OSMANY #### [address] [address] Monocyte, Absolute 0.9 10 3/mcL Normal 0.1-1.4 [facility] Comment on above: Performed By: #### A DIFF, TROPHS, APTT, CBC, ANEU, PRO, OSMANY #### [address] [address] Monocytes/100 WBC (Bld) 9.1 % Normal 2.0-13.0 [facility] Comment on above: Performed By: #### A DIFF, TROPHS, APTT, CBC, ANEU, PRO, W #### [address] [address] Neutrophils/100 WBC (Bld) 65.8 % Normal 50.0-75.0 [facility] Comment on above: Performed By: #### A DIFF, TROPHS, APTT, CBC, ANEU, PRO, MDW #### [address] [address] .GFRon 08-13-2025 Estimated Glomerular Filtration Rate 81 ml/min/1.73sqm Normal [facility] Comment on above: Result Comment: Stages of Chronic Kidney Disease (CKD) Stage Description eGFR(ml/min/1.73 sq.m.) CKD 1 Normal kidney function or >=90 normal kindney function with possible kidney damage (ex. Proteinuria) CKD 2 Kidney damage with mild loss 60-89 of kidney function CKD 3a Mild to moderate loss of kidney 45-59 function CKD 3b Moderate to severe loss of 30-44 of kindey function CKD 4 Severe loss of kidney function 15-29 CKD 5 Kidney failure <15 Note: (go live 2024) the eGFR calculation was updated to the 2020 CKD-EPI creatinine equation without a race factor to calculate the eGFR results. Performed By: #### C MP, GFR #### [address] [address] .MDWon 08-13-2025 Monocyte Distribution Width 18.00 Normal 0.00-20.00 [facility] Comment on above: Result Comment: For ED adult patients suspected of sepsis, MDW<=20.0 does not rule out sepsis or risk of sepsis Performed By: #### A DIFF, TROPHS, APTT, CBC, ANEU, PRO, MDW #### [address] [address] .NEUABSon 08-13-2025 Neutrophil, Absolute 6.7 10 3/mcL Normal 2.3-8.1 [facility] Comment on above: Performed By: #### A DIFF, TROPHS, APTT, CBC, ANEU, PRO, MDW #### [address] [address] APTTon 08-13-2025 aPTT Coag (Bld) [Time] 30.2 s Normal 25.0-35.0 [facility] Comment on above: Result Comment: For Heparin anticoagulation therapy, the recommended therapeutic range is: 55.2-92.5 seconds. Patients on heparin therapy may have an extreme result. Performed By: #### A DIFF, TROPHS, APTT, CBC, ANEU, PRO, MDW #### [address] [address] CBCon 08-13-2025 Erythrocyte distribution width (RBC) [Ratio] 13.9 % Normal 11.5-15.5 [facility] Comment on above: Performed By: #### A DIFF, TROPHS, APTT, CBC, ANEU, PRO, MDW #### [address] [address] Hematocrit (Bld) [Volume fraction] 38.1 % Low 40.0-52.0 [facility] Comment on above: Performed By: #### A DIFF, TROPHS, APTT, CBC, ANEU, PRO, MDW #### [address] [address] Hgb 13.0 G/dL Normal 13.0-17.5 [facility] Comment on above: Performed By: #### A DIFF, TROPHS, APTT, CBC, ANEU, PRO, MDW #### [address] [address] MCH (RBC) [Entitic mass] 32.1 pg Normal 27.0-33.0 [facility] Comment on above: Performed By: #### A DIFF, TROPHS, APTT, CBC, ANEU, PRO, MDW #### [address] [address] MCHC 34.1 G/dL Normal 32.0-36.0 [facility] Comment on above: Performed By: #### A DIFF, TROPHS, APTT, CBC, ANEU, PRO, MDW #### [address] [address] MCV (RBC) [Entitic vol] 94.1 fL Normal 81.0-100.0 [facility] Comment on above: Performed By: #### A DIFF, TROPHS, APTT, CBC, ANEU, PRO, MDW #### [address] [address] Platelet 186 10 3/mcL Normal 150-450 [facility] Comment on above: Performed By: #### A DIFF, TROPHS, APTT, CBC, ANEU, PRO, OSMANY #### [address] [address] Platelet mean volume (Bld) [Entitic vol] 8.1 fL Normal 6.4-10.5 [facility] Comment on above: Performed By: #### A DIFF, TROPHS, APTT, CBC, ANEU, PRO, W #### [address] [address] RBC 4.05 10 6/mcL Low 4.50-6.00 [facility] Comment on above: Performed By: #### A DIFF, TROPHS, APTT, CBC, ANEU, PRO, W #### [address] [address] WBC 10.2 10 3/mcL Normal 4.5-10.8 [facility] Comment on above: Performed By: #### A DIFF, TROPHS, APTT, CBC, ANEU, PRO, OSMANY #### [address] [address] CMPon 08-13-2025 Albumin Level 3.0 G/dL Low 3.4-4.8 [facility] Comment on above: Performed By: #### C MP, GFR #### [address] [address] Albumin/Globulin [Mass ratio] 0.7 {ratio} Low 1.1-2.5 [facility] Comment on above: Performed By: #### C MP, GFR #### [address] [address] ALP [Catalytic activity/Vol] 61 U/L Normal 40-135 [facility] Comment on above: Performed By: #### C MP, GFR #### [address] [address] ALT [Catalytic activity/Vol] 13 U/L Low 16-63 [facility] Comment on above: Performed By: #### C MP, GFR #### [address] [address] AST [Catalytic activity/Vol] 13 U/L Normal 10-40 [facility] Comment on above: Performed By: #### C MP, GFR #### [address] [address] Bili Total 0.7 mg/dL Normal 0.2-1.0 [facility] Comment on above: Result Comment: Use of this assay is not recommended for patients undergoing treatment with eltrombopag due to the potential for falsely elevated results. Performed By: #### C MP, GFR #### [address] [address] BUN/Creatinine Ratio 22 ratio Normal 7-27 [facility] Comment on above: Performed By: #### C MP, GFR #### [address] [address] Calcium [Mass/Vol] 9.0 mg/dL Normal 8.4-10.2 [facility] Comment on above: Performed By: #### C MP, GFR #### [address] [address] Chloride [Moles/Vol] 98 mmol/L Normal 98-107 [facility] Comment on above: Performed By: #### C MP, GFR #### [address] [address] CO2 [Moles/Vol] 27 mmol/L Normal 23-31 [facility] Comment on above: Performed By: #### C MP, GFR #### [address] [address] Creatinine [Mass/Vol] 0.98 mg/dL Normal 0.67-1.17 [facility] Comment on above: Performed By: #### C MP, GFR #### [address] [address] Electrolyte Balance 10.0 mEq/L Normal 4.0-15.0 [facility] Comment on above: Performed By: #### C MP, GFR #### [address] [address] Globulin 4.5 G/dL High 2.7-4.4 [facility] Comment on above: Performed By: #### C MP, GFR #### [address] [address] Glucose [Mass/Vol] 199 mg/dL High 83-110 [facility] Comment on above: Performed By: #### C MP, GFR #### [address] [address] Potassium [Moles/Vol] 4.3 mmol/L Normal 3.5-5.1 [facility] Comment on above: Performed By: #### C MP, GFR #### [address] [address] Sodium [Moles/Vol] 135 mmol/L Low 136-145 [facility] Comment on above: Performed By: #### C MP, GFR #### [address] [address] Total Protein 7.5 G/dL Normal 6.4-8.2 [facility] Comment on above: Performed By: #### C MP, GFR #### [address] [address] Urea nitrogen [Mass/Vol] 22 mg/dL High 7-18 [facility] Comment on above: Performed By: #### C MP, GFR #### [address] [address] [address] HEAD OR BRAIN W/O CONTRAS Ton 08-13-2025 CT HEAD OR BRAIN W/O CONTRAST ORIGINAL HISTORY: Weakness COMPARISON: No TECHNIQUE: Routine noncontrast head CT, with sagittal and coronal reconstructions. This exam was performed according to our departmental dose optimization program, and includes the following measures where applicable: automated exposure control, adjustment of the mAs and/or kVp according to patient size and/or exam, and an iterative reconstruction algorithm. FINDINGS: The ventricles and sulci are mildly enlarged. There are no abnormal intra or extra-axial fluid collections. There is mild irregular decreased attenuation in the cerebral white matter. Savage-white matter differentiation is maintained. The calvaria and the bones of the base of the skull are intact. IMPRESSION: Mild volume loss and small vessel ischemic changes. Interpreted by: Nader Naranjo MD Preliminary Report By: Nader Naranjo MD Electronically signed By Nader Naranjo MD Dictated Date: 08/13/2025 12:00:21 PM Prelim Date: 08/13/2025 12:01:27 PM Sign Date: 08/13/2025 12:01:27 PM Ordering Provider: JEROME SANTANA Normal [facility]ORYOrdered By: SYSTEM SYSTEM on 08-13-2025 Albumin BCP dye [Mass/Vol] 3.0 G/dL Low 3.4 - 4.8 G/dL AO ADM SS Albumin/Globulin [Mass ratio] 0.7 {ratio} Low 1.1 - 2.5 ratio AO ADM SS ALP [Catalytic activity/Vol] 61 U/L Normal 40 - 135 U/L AO ADM SS ALT With P-5'-P [Catalytic activity/Vol] 13 U/L Low 16 - 63 U/L AO ADM SS aPTT Coag (PPP) [Time] 30.2 s Normal 25.0 - 35.0 seconds AO [facility] SS Comment on above: Interpretive Data: F or Heparin anticoagulation therapy, the recommended therapeutic range is: 55.2-92.5 seconds. Patients on heparin therapy may have an extreme result. AST With P-5'-P [Catalytic activity/Vol] 13 U/L Normal 10 - 40 U/L AO ADM SS Basophils (Bld) [#/Vol] 0.1 103/mcL Normal 0.0 - 0.3 10^3/mcL AO Workflow SS Basophils/100 WBC (Bld) 0.6 % Normal 0.0 - 2.5 % AO Workflow SS Bilirubin [Mass/Vol] 0.7 mg/dL Normal 0.2 - 1 .0 mg/dL AO ADM SS Comment on above: Interpretive Data: U se of this assay is not recommended for patients undergoing treatment with eltrombopag due to the potential for falsely elevated results. Calcium [Mass/Vol] 9.0 mg/dL Normal 8.4 - 10. 2 mg/dL AO ADM SS Chloride [Moles/Vol] 98 mmol/L Normal 98 - 10 7 mmol/L AO ADM SS CO2 [Moles/Vol] 27 mmol/L Normal 23 - 31 mmol/L AO ADM SS Creatinine [Mass/Vol] 0.98 mg/dL Normal 0.67 - 1.17 mg/dL AO ADM SS Electrolyte Balance 10.0 mEq/L Normal 4.0 - 15 .0 mEq/L AO ADM SS Eosinophil, Absolute 0.2 103/mcL Normal 0.0 - 0 .7 10^3/mcL AO Workflow SS Eosinophils/100 WBC (Bld) 1.8 % Normal 0.0 - 6.0 % AO Workflow SS Erythrocyte distribution width (RBC) [Ratio] 13.9 % Normal 11.5 - 15.5 % AO Workflow SS Globulin 4.5 G/dL High 2.7 - 4.4 G/dL AO ADM SS GLOMERULAR FILTRATION RATE/1.73 SQ M.PREDICTED:ARVRAT:PT :SER/PLAS/BLD:QN:CREA TININE-BASED FORMULA (CKD-EPI 2020) 81 ml/min/1.73sqm Invalid Interpretation Code AO Chemistry S Comment on above: Interpretive Data: Stages of Chronic Kidney Disease (CKD) Stage Description eGFR(ml/min/1.73 sq.m.) CKD 1 Normal kidney function or >=90 normal kindney function with possible kidney damage (ex. Proteinuria) CKD 2 Kidney damage with mild loss 60-89 of kidney function CKD 3a Mild to moderate loss of kidney 45-59 function CKD 3b Moderate to severe loss of 30-44 of kindey function CKD 4 Severe loss of kidney function 15-29 CKD 5 Kidney failure <15 Note: (go live 2024) the eGFR calculation was updated to the 2020 CKD-EPI creatinine equation without a race factor to calculate the eGFR results. Glucose [Mass/Vol] 199 mg/dL High 83 - 110 mg/dL AO ADM SS Hematocrit (Bld) [Volume fraction] 38.1 % Low 40.0 - 52.0 % AO Workflow SS Hemoglobin (Bld) [Mass/Vol] 13.0 G/dL Normal 13.0 - 17.5 G/dL AO Workflow SS INR Coag (PPP) [Relative time] 1.0 {INR} Invalid Interpretation Code AO [facility] SS Comment on above: Interpretive Data: [employer] (CHEST, 1991, [id number]) recommended therapeutic range for oral anticoagulant therapy is: LOW RISK: Prophylaxis of venous thrombosis INR: 2.0-3.0 Treatment of pulmonary embolism 2.0-3.0 Prevention of systemic embolism 2.0-3.0 HIGH RISK: Mechanical prosthetic valves 2.5-3.5 Lymphocytes (Bld) [#/Vol] 2.3 103/mcL Normal 0.9 - 4.3 10^3/mcL AO Workflow SS Lymphocytes/100 WBC (Bld) 22.7 % Normal 20.0 - 40.0 % AO Workflow SS MCH (RBC) [Entitic mass] 32.1 pg Normal 27.0 - 33.0 pg AO Workflow SS MCHC 34.1 G/dL Normal 32.0 - 36.0 G/dL AO Workflow SS MCV (RBC) [Entitic vol] 94.1 fL Normal 81.0 - 100.0 fL AO Workflow SS Monocyte distribution width Auto (Bld) [Entitic vol] 18.00 1 Normal 0.00 - 20.00 AO Workflow SS Comment on above: Result Comment: For ED adult patients suspected of sepsis, MDW<=20.0 does not rule out sepsis or risk of sepsis Monocytes (Bld) [#/Vol] 0.9 103/mcL Normal 0.1 - 1.4 10^3/mcL AO Workflow SS Monocytes/100 WBC (Bld) 9.1 % Normal 2.0 - 13.0 % AO Workflow SS Neutrophils (Bld) [#/Vol] 6.7 103/mcL Normal 2.3 - 8.1 10^3/mcL AO Workflow SS Neutrophils/100 WBC (Bld) 65.8 % Normal 50.0 - 75.0 % AO Workflow SS Platelet mean volume (Bld) [Entitic vol] 8.1 fL Normal 6.4 - 10.5 fL AO Workflow SS Platelets (Bld) [#/Vol] 186 103/mcL Normal 150 - 450 10^3/mcL AO Workflow SS Potassium [Moles/Vol] 4.3 mmol/L Normal 3.5 - 5.1 mmol/L AO ADM SS Protein [Mass/Vol] 7.5 G/dL Normal 6.4 - 8.2 G/dL AO ADM SS PT Coag (PPP) [Time] 12.2 s Normal 9.0 - 1 4.4 seconds AO [facility] SS RBC (Bld) [#/Vol] 4.05 106/mcL Low 4.50 - 6.00 10^6/mcL AO Workflow SS Sodium [Moles/Vol] 135 mmol/L Low 136 - 145 mmol/L AO ADM SS Troponin I.cardiac DL <= 0.01 ng/mL [Mass/Vol] 4 ng/L Normal 0 - 76 ng/L AO ADM SS Comment on above: Interpretive Data: H igh Sensitive Troponin I Reference Ranges: Female: 0-51 ng/L Male: 0-76 ng/L Testing performed on Jovie using a homogeneous sandwich chemiluminescent immunoassay based on [employer] technology. Urea nitrogen [Mass/Vol] 22 mg/dL High 7 - 18 mg/dL AO ADM SS Urea nitrogen/Creatinine [Mass ratio] 22 ratio Normal 7 - 27 ratio AO ADM SS WBC (Bld) [#/Vol] 10.2 103/mcL Normal 4.5 - 10.8 10^3/mcL AO Workflow SS LABORATORYOrdered By: Jane Silva on 08-13-2025 Blood Glucose Interventions Notify physician (08/13/25 11:38 AM) [facility] Work Phone: Blood Glucose Testing Reason Routine (08/13/25 11:38 AM) [facility] Work Phone: Glucose [Mass/Vol] 175 mg/dL High 82 - 115 mg/dL [facility] Work Phone: Time of Stated Blood Glucose [id number] [facility] Work Phone: PROon 08-13-2025 PT Coag (PPP) [Time] 12.2 s Normal 9.0-14.4 [facility] Comment on above: Performed By: #### A DIFF, TROPHS, APTT, CBC, ANEU, PRO, MDW #### [facility] [address], [place] [address] PT International Ratio 1.0 Normal [facility] Comment on above: Result Comment: The [employer] (CHEST, 1992, 102:312S-25S) recommended therapeutic range for oral anticoagulant therapy is: LOW RISK: Prophylaxis of venous thrombosis INR: 2.0-3.0 Treatment of pulmonary embolism 2.0-3.0 Prevention of systemic embolism 2.0-3.0 HIGH RISK: Mechanical prosthetic valves 2.5-3.5 Performed By: #### A DIFF, TROPHS, APTT, CBC, ANEU, PRO, MDW #### [facility] [address], [place] [address] TROPHSon 08-13-2025 High Sensitivity Troponin I 4 ng/L Normal 0-76 [facility] Comment on above: Result Comment: High Sensitive Troponin I Reference Ranges: Female: 0-51 ng/L Male: 0-76 ng/L Testing performed on Jovie using a homogeneous sandwich chemiluminescent immunoassay based on [employer] technology. Performed By: #### A DIFF, TROPHS, APTT, CBC, ANEU, PRO, MDW #### [facility] [address], [place] [address] XR CHEST 1 VIEWon 08-13-2025 XR CHEST 1 VIEW ORIGINAL EXAMINATION: ONE XRAY VIEW OF THE CHEST 08/13/2025 11:55 am COMPARISON: 06/04/2021 HISTORY: ORDERING SYSTEM PROVIDED HISTORY: Reason for Exam: Shortness of breath FINDINGS: Rotation to the left. Cardiomediastinal silhouette is within normal limits. Aortic arch atherosclerosis. No edema. Left lower lobe infiltrates. No pleural effusion. No pneumothorax. No acute osseous abnormality. Right humeral head suture anchors. IMPRESSION: Left lower lobe infiltrates, atelectasis and or consolidation. Interpreted by: Jeremiah Bradshaw Preliminary Report By: Jeremiah Bradshaw Electronically signed By Jeremiah Bradshaw Dictated Date: 08/13/2025 12:01:44 PM Prelim Date: 08/13/2025 12:04:42 PM Sign Date: 08/13/2025 12:04:42 PM Ordering Provider: JEROME SANTANA Normal [facility] Absolute lymphocyte countOrd ered By: Richardson Jean Baptiste on 08-10-2025 Lymphocytes Auto (Unsp spec) [#/Vol] 1.78 10*3/uL 0.83-4.51 [facility] Absolute neutrophil countOrd ered By: Richardson Jean Baptiste on 08-10-2025 Neutrophils (Bld) [#/Vol] 13.5 10*3/uL High 2.0-7.7 [facility] Anion gap in Serum or Plasma Ordered By: Richardson Jean Baptiste on 08-10-2025 Anion gap [Moles/Vol] 11 mmol/L 03-08 [facility] Automated lymphocyte count a s percentage of total leukocytesOrdered By: Richardson Jean Baptiste on 08-10-2025 Lymphocytes/100 WBC Auto (Unsp spec) 8.6 % Low 19-41 [facility] BUN/creatinine ratioOrdered By: Richardson Jean Baptiste on 08-10-2025 Urea nitrogen/Creatinine [Mass ratio] 21.9 mg/mg High 08-13 [facility] Basic Metabolic Profile (BMP )on 08-10-2025 BUN/CRE 21.9 RATIO High 08-13 [facility] Comment on above: Performed By: #### L 100.0100, L500.2500 #### [facility] [address] [place], [address] Chloride [Moles/Vol] 103 mmol/L Normal 98-108 [facility] Comment on above: Performed By: #### L 100.0100, L500.2500 #### [facility] [address] [place], [address] GAP 11 Normal 03-08 [facility] Comment on above: Performed By: #### L 100.0100, L500.2500 #### [facility] [address] [place], [address] Glucose [Mass/Vol] 200 mg/dL High 70-99 [facility] Comment on above: Performed By: #### L 100.0100, L500.2500 #### [facility] [address] [place], [address] Potassium [Moles/Vol] 4.6 mmol/L Normal 3.3-5.1 [facility] Comment on above: Performed By: #### L 100.0100, L500.2500 #### [facility] [address] [place], [address] Sodium [Moles/Vol] 136 mmol/L Normal 133-145 [facility] Comment on above: Performed By: #### L 100.0100, L500.2500 #### [facility] [address] [place], [address] Urea nitrogen [Mass/Vol] 19 mg/dL Normal 4-19 [facility] Comment on above: Performed By: #### L 100.0100, L500.2500 #### [facility] [address] [place], [address] Basophil percentageOrdered B y: Richardson Jean Baptiste on 08-10-2025 Basophils/100 WBC (Bld) 0.2 % 0-1 [facility] Bedside Glucoseon 08-10-2025 FINGERSTICK GLU 258 mg/dL High 74-106 [facility] Comment on above: Result Comment: ARLYN GEMENT OF PATIENT CARE PER NURSING PROTOCOL Performed By: #### L 501.080 #### [facility] [address] [place], [address] FINGERSTICK GLU 220 mg/dL High 74-106 [facility] Comment on above: Result Comment: ARLYN GEMENT OF PATIENT CARE PER NURSING PROTOCOL Performed By: #### L 501.080 #### [facility] [address] [place], [address] FINGERSTICK GLU 292 mg/dL High 74-106 [facility] Comment on above: Result Comment: ARLYN GEMENT OF PATIENT CARE PER NURSING PROTOCOL Performed By: #### L 501.080 #### [facility] [address] [place], [address] Blood manual differential co mment interpretation (narrative result)Ordered By: Richardson Jean Baptiste on 08-10-2025 Manual differential comment Rafiq (Bld) [Interp] SCANNED [facility] Comment on above: EOSINOPHILLIA PRESEN T CBC W/Diff, Automatedon 10- SMEAR COMMENT SCANNED Normal [facility] Comment on above: Result Comment: EOSI NOPHILLIA PRESENT Performed By: #### L 100.0100, L500.2500 #### [facility] [address] [place], [place], [address] Carbon dioxide, total [Moles /volume] in Central venous bloodOrdered By: Richardson Jean Baptiste on 08-10-2025 CO2 [Moles/Vol] 22.2 mmol/L 21.0-32.0 [facility] Chloride assayOrdered By: Yoni Jean Baptiste on 08-10-2025 Chloride [Moles/Vol] 103 mmol/L 98-108 [facility] Eosinophil percentageOrdered By: Richardson Jean Baptiste on 08-10-2025 Eosinophils/100 WBC (Bld) 19.1 % High 0-5 [facility] Erythrocyte distribution wid th ratioOrdered By: Richardson Jean Baptiste on 08-10-2025 Erythrocyte distribution width (RBC) [Ratio] 13.6 % 11.6-14.6 [facility] Erythrocyte distribution wid th standard deviationOrdered By: Richardson Jean Baptiste on 08-10-2025 Erythrocyte distribution width (RBC) [Ratio] 46.5 fl High 35.1-43.9 [facility] Glomerular filtration rate ( GFR) estimation/1.73 sq m using serum, plasma, or whole bOrdered By: Richardson Jean Baptiste on 08-10-2025 GFR/1.73 sq M.predicted among non-blacks MDRD (S/P/Bld) [Vol rate/Area] 91 mL/min/{1.73_m2} >60 [facility] Comment on above: mL/min/1.73m2 CKD-EP I Creatinine Equation (2020) [facility] deOrdered By: Alcides Ch on 08-10-2025 Glucose [Mass/Vol] 258 mg/dL High 74-106 [facility] Comment on above: MANAGEMENT OF PATIEN T CARE PER NURSING PROTOCOL Hematocrit Auto (Bld) [Volum e fraction]Ordered By: Richardson Jean Baptiste on 08-10-2025 Hematocrit (Bld) [Volume fraction] 42.4 % 40-54 [facility] Hemoglobin measurementOrdere d By: Richardson Jean Baptiste on 08-10-2025 Hemoglobin (Bld) [Mass/Vol] 14.3 g/dL 13.0-16.5 [facility] Immature granulocytes/100 WB C Auto (Bld)Ordered By: Richardson Jean Baptiste on 08-10-2025 Immature granulocytes/100 WBC (Bld) 0.300 % 0.0-0.9 [facility] Comment on above: IG% - Immature Granu locytes (promyelocytes, myelocytes and metamyelocytes) > 1% indicates that a LEFT SHIFT is Present. MCV (mean corpuscular volume ) determinationOrdered By: Richardson Jean Baptiste on 08-10-2025 MCV (RBC) [Entitic vol] 93.8 fL 80-94 [facility] Mean corpuscular hemoglobin (MCH) determinationOrdered By: Richardson Jean Baptiste on 08-10-2025 MCH (RBC) [Entitic mass] 31.6 pg 27.0-32.0 [facility] Mean corpuscular hemoglobin concentration (MCHC) determinationOrdered By: Richardson Jean Baptiste on 08-10-2025 MCHC (RBC) [Mass/Vol] 33.7 g/dL 32-36 [facility] Mean platelet volume determi nationOrdered By: Richardson Jean Baptiset on 08-10-2025 Platelet mean volume (Bld) [Entitic vol] 10.3 fL 6.2-12.0 [facility] Monocyte percentageOrdered B y: Richardson Jean Baptiste on 08-10-2025 Monocytes/100 WBC (Bld) 6.5 % 0-10 [facility] Neutrophil percentageOrdered By: Richardson Jean Baptiste on 08-10-2025 Neutrophils/100 WBC (Bld) 65.3 % 47-70 [facility] Nucleated red blood cell per centageOrdered By: Richardson Jean Baptiste on 08-10-2025 Nucleated RBC/100 WBC (Bld) [Ratio] 0 % 0-5 [facility] Platelet countOrdered By: Yoni Jean Baptiste on 08-10-2025 Platelets (Bld) [#/Vol] 196 10*3/uL 150-450 [facility] Potassium measurement (mass/ volume)Ordered By: Richardson Jean Baptiste on 08-10-2025 Potassium (Unsp spec) [Mass/Vol] 4.6 mmol/L 3.3-5.1 [facility] RBC Auto (Bld) [#/Vol]Ordere d By: Richardson Jean Baptiste on 08-10-2025 RBC (Bld) [#/Vol] 4.52 10*6/uL Low 4.6-6.2 [facility] Serum creatinine measurement (mass/volume)Ordered By: Richardson Jean Baptiste on 08-10-2025 Creatinine [Mass/Vol] 0.87 mg/dL 0.70-1.20 [facility] Serum glucose measurement (m ass/volume)Ordered By: Richardson Jean Baptiste on 08-10-2025 Glucose [Mass/Vol] 200 mg/dL High 70-99 [facility] Serum or plasma calcium tri urement (mass/volume)Ordered By: Richardson Jean Baptiste on 08-10-2025 Calcium [Mass/Vol] 8.6 mg/dL 7.6-11.0 [facility] Serum or plasma urea nitroge n measurement (mass/volume)Ordered By: Richardson Jean Baptiste on 08-10-2025 Urea nitrogen [Mass/Vol] 19 mg/dL 4-19 [facility] Sodium levelOrdered By: Trae Jean Baptiste on 08-10-2025 Sodium [Moles/Vol] 136 mmol/L 133-145 [facility] White blood cell (WBC) count Ordered By: Richardson Jean Baptiste on 08-10-2025 WBC (Bld) [#/Vol] 20.6 10*3/uL High 4.4-11.0 [facility] Bedside Glucoseon 08-09-2025 FINGERSTICK GLU 312 mg/dL High 74-106 [facility] Comment on above: Result Comment: ARLYN GEMENT OF PATIENT CARE PER NURSING PROTOCOL Performed By: #### L 501.080 #### [facility] [address] [place], [place], [address] (127) FINGERSTICK GLU 232 mg/dL High 74-106 [facility] Comment on above: Result Comment: ARLYN GEMENT OF PATIENT CARE PER NURSING PROTOCOL Performed By: #### L 501.080 #### [facility] [address] [place], [address] FINGERSTICK GLU 175 mg/dL High 74-106 [facility] Comment on above: Result Comment: ARLYN GEMENT OF PATIENT CARE PER NURSING PROTOCOL Performed By: #### L 501.080 #### [facility] [address] [place], [address] Consultation - [facility] 08-09-2025 Consultation - Hospitalist [facility] Medical Records Department [address] [place] [address] Consultation - Hospitalist 08/09/25 1441 MR#: [id number] Acct: [id number] Name: AGAPITO MESSER Rep #: [id number] : 1950 74 From: Richardson Jean Baptiste DO PCP: PR Hospital Status:ADM JULIETH Location: MS3 [id number] Assessment Plan Assessment/Plan (1) Status post left knee replacement: PLAN: Plan Patient is a 74-year-old male who presented to [facility] on 08/09/2025 for planned left knee replacement. Medicine consulted postoperatively for medical management. 1. Left knee osteoarthritis ??? Orthopedic surgery primary. S/p left total knee arthroplasty with Dr. Lima on 08/09. Tolerated procedure well, no intraoperative complications noted. Postoperative pain control with scheduled Tylenol, home gabapentin, home MS Contin, home Mobic and oxycodone as needed per orthopedics. DVT prophylaxis with baby aspirin twice daily per orthopedics. Follow-up a.m. CBC and BMP. PT/OT/case management consulted. 2. Type 2 diabetes mellitus ??? Glucose 232 postoperatively. Most recent A1c 8.0% on 02/06. Hold home glimepiride and empagliflozin. Will treat with sliding scale insulin with meals at this time, adjust as needed. 3. Chronic pain with neuropathy ??? Home gabapentin, Mobic and MS Contin continued as above. 4. GERD, history of Schatzki ring ??? Had EGD done in January and a Schatzki ring was found and esophageal dilation was done. Patient reports no current swallowing issues. Continue home PPI. 5. BPH with obstructive symptoms ??? Continue home Flomax. DVT prophylaxis: Baby aspirin twice daily per orthopedics Total clinical time spent by myself addressing the patient's medical issues, reviewing all the data, and collaborating with patient's care team: 36 minutes. HPI Consult Data Date of Consult: 08/09/25 HPI Narrative Reason for Consultation: Postoperative medical management HPI Narrative: AGAPITO MESSER, is a 74 M who presented to [facility] on 08/09/2025 for planned orthopedic procedure. Medicine consulted postoperatively for medical management. Patient had left total knee arthroplasty done with Dr. Lima today. Tolerated procedure well, no intraoperative complications noted. I saw the patient at bedside this evening postoperatively. Patient was sitting up comfortably in bedside chair, conversing normally, in no acute distress. Reported mild pain in the distal quadriceps area just of the knee but otherwise stated that he was doing well. He had moved from bed to bedside chair without significant issue. Told me that he was wanting to get up to walk on the floor but understood that he could not do this without assistance. No other acute concerns at this time. [facility] Medical History Wears dentures Wears glasses Anxiety Depression History [...] 15 mg PO DAILY PAIN 08/05/1702/15 History fish oil-dha-epa 1,200 mg-144 1 cap PO DAILY SUPPLEMENT 09/04/20 02/15/25 History mg-216 mg capsule morphine 15 mg tablet,extended 15 mg PO TID PAIN 09/04/20 5 History release ondansetron 4 mg disintegrating 4 mg PO Q8H PRN PRN Nausea #10 tab s 09/15/22 Unknown Rx tablet aspirin 81 mg tablet,delayed 81 mg PO QDAY HE[facility] 5 02/15/25 History release (Adult Aspirin Regimen) cholecalciferol (vitamin D3) 50 50 mcg PO QDAY SUPPLEMENT 12/18/24 02/18/25 History mcg (2,000 unit) capsule empagliflozin 25 mg tablet 25 mg PO QDAY DIABETES 12/18/24 History hydroxyzine pamoate 25 mg capsule 25 mg PO QDAY PRN anxiety 5 Unknown History docusate sodium 100 mg capsule 100 mg PO BID STOOL SOFTENER 02/1402/18/25 History (Colace) psyllium husk 3.4 gram/5.4 gram 1 tbsp PO DAILY SUPPLEMENT 5 02/18/25 History oral powder (Metamucil) acetaminophen 500 mg/15 mL oral 500 mg PO Q4H PRN pain 02/19/25 History liquid denosumab 60 mg/mL subcutaneous 60 mg subcut QMONTH BONE DENSITY 0 07/11/25 Unknown History syringe (Prolia) mecobalamin (vitamin B12) 2,500 2,500 mcg PO D (more content not included)... Normal [facility] Knee 1 or 2 Viewson 08-09-20 25 Knee 1 or 2 Views [facility] Imaging Services [address] [place] [address] Knee 1 or 2 Views MR#: [id number] Acct: [id number] Name: AGAPITO MESSER Rep #: [id number] : 1950 M 74 From: Cooper longoria MD PCP: PR Hospital Status: [facility] Study: Knee 1 or 2 Views Date of Exam: 08/09/25 Exam# [id number] Ordering Dr: Harshad Lima DO PROCEDURE: KNEE 1 OR 2 VIEWS 08/09/2025 REASON FOR EXAM: POST OP TOTAL KNEE TECHNIQUE: Procedure Code: RADK Modality: DX Procedure: KNEE 1 OR 2 VIEWS Laterality: Left knee COMPARISON: None FINDINGS: The patient is status post left total knee replacement. There is good alignment. Postoperative soft tissue changes. RAD/Knee 1 or 2 Views IMPRESSION: Status post left total knee replacement. There is good alignment. Postoperative soft tissue changes. Reading Location: [facility] CC: Dr. Harshad Lima, DO; [facility] Single Stayer Operator: Signed [facility] MR/POSTOP.ANEon 08-09-2025 MR/POSTOP.ANE [facility] Medical Records Department [address] [place] [address] Anesthesia Postop Eval I 08/09/25 1203 MR#: [id number] Acct: [id number] Name: AGAPITO MESSER Rep #: [id number] : 1950 74 From: Scott Daugherty CRNA PCP: [facility] Status:REG SDC Y Race: C Location: [place] [address] Anesthesia: Postop Eval I Current Vital Signs Temperature: 97.6 F Pulse Rate: 99 Blood Pressure: 126/78 Respiratory Rate: 16 Pulse Ox: 94 Assessment Airway patent: Yes Spontaneous unlabored respirations: Yes nausea: No Vomiting: No Anesthesia Complication: No Fluid Hydration Crystalloid volume administer (ml): 1,800 Total IV fluid infused: 1,800 Progress Note Anesthesia document: Postop Eval 1 completed: Yes 08/09/25 1204 Date Scott Daugherty CRNA Cosigner Signature: Date CC: Signed [facility] MR/[id number] 08-09-2025 MR/POSTOPAN2 [facility] Medical Records Department [address] [place] [address] Anesthesia Postop Eval II 08/09/25 1409 MR#: [id number] Acct: [id number] Name: AGAPITO MESSER Rep #: [id number] : 1950 74 From: Gorge Sal MD PCP: [facility] Status:ADM JULIETH Y Race: C Location: [facility] MA691-4 Anesthesia Postop Eval I Sum Postop Eval Completion status Anesthesia document: Postop Eval 1 completed: Yes Anesthesia Postop Eval I Summary Anesthesia Postop Eval I Summary: Anesthesia Postop Eval I: Assessment Summary Airway patent Yes 08/09/25 12:03 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.TNES Spontaneous unlabored Yes 08/09/25 12:03 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.TNES respirations Mental status nausea No 08/09/25 12:03 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.TNES Vomiting No 08/09/25 12:03 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.TNES Anesthesia Postop Eval I: Fluid Summary Crystalloid volume administer 1,800 08/09/25 12:03 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.TNES (ml) Colloids volume administered ( ml) Blood Product volume administered (ml) Total IV fluid infused 1,800 08/09/25 12:03 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.TNES Anesthesia Postop Eval I: Summary Notes Anesthesia Complication No 08/09/25 12:03 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.TNES Anesthesia Complication Comment: Post-operative progress note Anesthesia: Postop Eval II Evaluation Mental status: Awake and Calm Pain Level: 1 nausea: No Vomiting: No Complications Anesthesia Complication: No 08/09/25 1410 Date Gorge Sal MD Cosigner Signature: Date CC: Signed Normal [facility] Operative Reporton 5 Operative Report [facility] Medical Records Department [address] [place] [id number] Operative Report 08/09/25 1339 MR#: [id number] Acct: [id number] Name: TRUPTIAGAPITOCORBY ZAIID Rep #: [id number] : 1950 74 From: Harshad Lima DO PCP: PR Hospital Status:ADM JULIETH Location: [place] [address] Operative Report (Standard) Operative Information Date of Procedure: 08/09/25 Pre-Operative Diagnosis: Left knee osteoarthritis Post-Operative Diagnosis: Left knee osteoarthritis Surgery/Procedure Performed: Robotic arm assisted left total knee arthroplasty solder leveler printed circuit boards: Yes Collector Of Port: [place] Tasks completed by presser first: Opening closing, Removing tissue, Implanting device and Retracting Type of Anesthesia: Spinal RN Documented Start/Stop Times: Operation Date: 08/09/25 10:15 Case Time Into Pre-Op 08/09/25 08:12 Out of Pre-Op 08/09/25 10:05 Anesthesia Start 08/09/25 10:06 Into Room 08/09/25 10:06 Procedure Start 08/09/25 10:30 Procedure End 08/09/25 11:54 Anesthesia End 08/09/25 12:00 Out of Room 08/09/25 12:00 Into Recovery 08/09/25 12:01 Procedure Start Time: 10:30 Procedure Stop Time: 11:54 Select all DRAINS/GRAFTS/IMPLANTS that apply: Implanted device Implanted device details: [place] press-fit triathlon CR size #5 femur, press-fit size #5 tibia with 11 mm CS polyethylene Estimated Blood Loss: 75 cc Specimen collected: No Description of surgery: Patient was identified in the preoperative holding area by name, medical record number, and date of . Informed set was confirmed with the patient. The operative knee was marked with a surgical marker. At time of his procedure, patient brought to the operative suite and positioned supine a standard operating table. Anesthesia then administered a spinal anesthetic. He was then repositioned in the supine position with all bony prominences well-padded. We then placed a well- padded pneumatic tourniquet on the left upper thigh. The left upper extremity was brought across patient's chest throughout the procedure. We then prepped and draped the left lower extremity in a normal, sterile orthopedic fashion. We performed a timeout with all parties in attendance in agreement with the side, site, operation be performed. No concerns were voiced and would like to proceed with surgery. 2 g Ancef was administered prior to the incision by anesthesia staff as well as 1 g IV TXA. First exsanguinated the left lower extremity with a Esmarch bandage. Tourniquet was inflated to 250 mmHg which remained elevated for approximately 45 minutes. Esmarch was removed. I planned a standard midline approach to the left knee approximately 15 cm in length. Skin was sharply incised with a 10 blade scalpel developing full-thickness layers down to the retinaculum. Layers were developed identifying the VMO. I then planned a standard medial parapatellar arthrotomy performed in flexion. The anterior horn of the medial meniscus was released. Hoffa's fat pad was then released. I then everted the patella in extension and brought the knee into 90 degrees of flexion. The anterior horn of the lateral meniscus was then released. The ACL was split in its mid substance with a 10 blade. We then brought the knee back into extension. Patella appeared to be minimally degenerative with grade I-II chondromalacia and was left bridgeport. I then placed pins in the metaphyseal distal femur medial to lateral for the Cristopher arrays. In similar fashion, I made a 2 cm incision approximately a handsbreadth distal to the tibial tubercle along the medial aspect of the tibia, drilling 2 bicortical pins for the tibial array. The knee was brought into flexion. The patella was subluxed laterally but not everted. Medial lateral retractors were placed. We then utilized the Keemotion software to confirm our planned surgical procedure and oriented with the patient's osseous anatomy. All checks with the Keemotion system were confirmed. Patient had a significant fixed varus deformity after performing stress examination utilizing the Keemotion software. We elected to place the tibial baseplate in 3 degrees of varus to allow for appropriate balancing. Sawblade was then brought in. I first started with the tibial cut, ensuring protection of the MCL and patellar tendon. A tibial wafer was then excised. I then proceeded to make the posterior femoral, anterior, anterior chamfer cuts with the same blade. Ligaments were protected with [employer] retractors. Sawblade was then exchanged to perform the distal femoral and posterior chamfer cuts. The robot was then removed from the surgical field. Remaining loose bone and meniscus was excised carefully. Posterior osteophytes were removed from the distal femur with a curved osteotome and rongeur. Trial components were then placed. Balance was excellent in both extension and 90 degrees flex (more content not included)... Normal [facility] Electrocardiogram reportOrde red By: Raymon Bhakta on 07-20-2025 EKG study [facility] [address] [place] [address] 12 Lead EKG 07/19/25 0927 MR#: [id number] Acct: [id number] Name: TRUPTIAGAPITOCORBY ZAIDI Rep #:[id number] : 1950 74 From: Raymon talavera MD Attending Dr: Dr. Harshad Lima DO Status: PRE IN Ordering Dr: Gorge Sal MD Date: 07/19/25 Location: [facility] Sex: M C Admitted: Test Reason : [...] undetermined Abnormal ECG Confirmed by Raymon Bhakta ([id number]), image editor OLYA RODRÍGUEZ ([id number]) on 55:53:06 AM Referred By: HARSHAD LIMA Confirmed By: Raymon Bhakta 07/20/25 0553 Date _ Raymon Bhakta MD CC: Dr. Gorge Sal MD; Dr. Harshad Lima DO; [facility] ~ Signed [facility] Work Phone: MRSA/SAID NASAL SCREENon MRSA+SAID SCRN Reason for Exam: PRE OP MRSA MRSA Negative S. AUREUS S. aureus Negative Normal [facility] Comment on above: Performed By: #### L 501.080 #### [facility] [address] [place], [address] 12 Lead EKGon 07-19-2025 12 Lead EKG [facility] Cardiovascular Services [address] [place] [address] 12 Lead EKG 07/19/25926 MR#: [id number] Acct: [id number] Name: AGAPITO MESSER Rep #: [id number] : 1950 74 From: Raymon Bhakta MD Attending Dr: Dr. Harshad Lima DO Status: PRE IN Ordering Dr: Gorge Sal MD Date: 07/19/25 Location: [facility] Sex: M C Admitted: Test Reason : [...] undetermined Abnormal ECG Confirmed by Raymon Bhakta ([id number]), image editor OLYA RODRÍGUEZ ([id number]) on 07/20/2025 5:53:06 AM Referred By: HARSHAD LIMA Confirmed By: Raymon Bhakta 07/20/25 0553 Date Raymon Bhakta MD CC: Dr. Gorge Sal MD; Dr. Harshad Lima DO; [facility] Signed [facility] MR/PAT.[facility] 07-19-2025 MR/PAT.[facility] Medical Records Department [address] [place] [address] PAT - Anesthesia 07/19/25 1807 MR#: [id number] Acct: [id number] Name: AGAPITO MESSER Rep #: [id number] : 1950 74 From: Nickolas Torre MD PCP: [facility] Status:PRE IN Y Race: C Location: [facility] Pre-Assessment Diagnosis/Proposed Procedure Planned Operative Procedure(s): (L) Total Knee Replacement Robotic Arm Radha Anesthesia History Anesthesia History - getter operator: Anesthesia History - getter operator Hx Hospitalization No 07/11/25 14:21 Any Problems [...] take am of surgery PONV PONV - getter operator: PONV - getter operator Female No 07/11/25 14:21 HX of Motion [...] 02/19/25 06:01 Respiratory Assessment Respiratory Assessment - getter operator: Respiratory Tract Infection Hx - getter operator Hx Respiratory Tract Infection No 07/11/25 14:21 STOP Sleep Apnea STOP Sleep Apnea - getter operator: STOP Sleep Apnea - getter operator Hx Hypertension No 07/11/25 14:21 Hx Sleep [...] Tobacco Use History Tobacco Use History - getter operator: Tobacco Use History - getter operator Tobacco Use Cigarettes 09/04/20 14:54 Smoking Status Current every day smoker 07/11/25 14:21 Hx Tobacco Use Yes 07/11/25 14:21 Years Smoking Packs Smoked per Day 0.5 07/11/25 14:21 Smoking Cessation Date was within the last 15 years Hx Smoking Cessation Date Hx Smoking Cessation Counseling Hematologic Medial History Hematologic Hx - getter operator: Hematologic Medical Hx - perforator loader Hx of Blood Transfusion No 07/11/25 14:21 [...] confused, unrespo /Reproduction History /Reproductive History - getter operator: /Reproductive Hx- getter operator Hx Now No 07/11/25 14:21 Gestational Age (in weeks): EDC: Hx Hx Para Hx Section SAB No 07/11/25 14:21 [facility] Medical History (Updated 07/11/25 @ 14:21 by [...] 08/05/1702/15 History (more content not included)... Normal [facility] MRSA screenOrdered By: Elijah Lima on 07-19-2025 MRSA DNA ISABEL+probe Ql (Unsp spec) [facility] MRSA DNA ISABEL+probe Ql (Unsp spec) [facility] CT KNEE W/O CONTRAST LEFTon 07-12-2025 CT [...] Harley Lewis MD Preliminary Report By: Santiago iWlder Electronically signed By Harley Lewis MD Dictated Date: 07/10/2025 9:49:38 AM Prelim Date: 07/12/2025 8:22:35 AM Sign Date: 07/12/2025 8:22:35 AM Ordering Provider: YOANA LION [facility] Cardiovascular stress test r eportOrdered By: Jaqueline Augustine on 03-29-2025 Study report [facility] Cardiovascular Services [address] [place] [address] MR#: [id number] Acct: [id number] Name: GAAPITO MESSER Rep #: [id number] : 1950 74 From: Jaqueline feliciano MD Primary Care: PR Hospital Status: REG CLI Referring Dr: Domenic Khan NP [employer]-C Sex: M C Stress Test Report Date: [...] is 69%. This note was generated with [employer]ation software. It may contain incorrectwords, spelling, and punctuation that were not noted in checking the note beforesigning. 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 Status: RE G CLI Ordering Dr: Satinder Jung Date: 03/29/25 Location: [facility] Sex: M C Admitted: Reason For Study [...] Physician: Domenic Khan Performed By: Mari Huntley, ANASTASIA, RVT 03/29/25 1340 Date Jaqueline Augustine MD CC: MARIZA Jung; Domenic Khan; [facility] Date Dictated: 03/29/25812 Date Transcribed: 03/29/25 1340 Single Stayer Operator: Signed Normal [facility] Echocardiogram study reportO rdered By: Jaqueline Augustine on 03-29-2025 Study report [facility] Cardiovascular [place] [address] [address] Echo Complete W/ Contrast 03/29/25812 MR#: [id number] Acct: [id number] Name: AGAPITO MESSER Rep #:[id number] : 1950 74 From: Jaqueline fitch MD Attending Dr: Domenic Khan NP [employer]-C Status: REG CLI Ordering Dr: Satinder Jung [employer]-C Date: 03/29/25 Location: [facility] Sex: M C Admitted: Reason For Study [...] Physician: Domenic Khan Performed By: Mari Huntley, ANASTASIA, RVT 03/29/25 134 Date _ Jaqueline Augustine MD CC: MARIZA Jung; Domenic Khan; [facility] ~ Date Dictated: 03/29/25812 Date Transcribed: 03/29/25 134 Single Stayer Operator: Signed [facility] Work Phone: Stress Reporton 03-29-2025 Stress Report [facility] Cardiovascular Services [address] [place] [address] MR#: [id number] Acct: [id number] Name: AGAPITO MESSER Rep #: [id number] : 1950 74 From: Jaqueline Augustine MD Primary Care: PR Hospital Status: REG CLI Referring Dr: Domenic Khan NP [employer]-C Sex: M C Stress Test Report Date: [...] is 69%. This note was generated with [employer] dictation software. It may contain incorrect words, spelling, and punctuation that were not noted in checking the note before signing. 03/29/251424 Date Jaqueline Augustine MD CC: Domenic Khan; [facility] Date Dictated: 03/29/251420 Date Transcribed: 03/29/251420 Single Stayer Operator: NN Signed Normal [facility] Bedside Glucoseon 02-19-2025 FINGERSTICK GLU 132 mg/dL High 74-106 [facility] Comment on above: Result Comment: ARLYN GEMENT OF PATIENT CARE PER NURSING PROTOCOL Performed By: #### L 501.080 #### [facility] [address] [place], [address] EGD Reporton 02-19-2025 EGD Report [facility] Medical Records Department [address] [place] [address] EGD Report MR#: [id number] Acct: [id number] Name: AGAPITO MESSER Rep #: [id number] : 1950 74 From: Tonio Rogers DO PCP: [facility] Status:[facility] Patient Name: Agapito Messer Procedure Date: 02/19/2025 6:20 AM Date of : 1950 Age: 74 Procedure: Upper GI endoscopy Indications: Epigastric abdominal pain, Dysphagia Providers: Tonio Rogers DO Referring MD: [facility] Medicines: Monitored Anesthesia Care Patient Profile: [...] pathology results. Procedure Code(s): --- Professional --- 81584, Esophagogastroduodenoscopy, flexible, transoral; with insertion of guide wire followed by passage of dilator(s) through esophagus over guide wire 86750, 59,51, Esophagogastroduodenoscopy, flexible, transoral; with biopsy, single or multiple CPT copyright 2021 [employer]. All rights reserved. The codes documented in this report are preliminary and upon chef manager review may be revised to meet current compliance requirements. Tonio Rogers DO 02/19/2025 7:12:47 AM This report has been signed electronically. Number of Addenda: 0 Note Initiated On: 02/19/2025 6:20 AM 02/19/25712 Date Ra (more content not included)... Normal [facility] deOrdered By: Tonio Rogers on 02-19-2025 Glucose [Mass/Vol] 132 mg/dL High 74-106 [facility] Comment on above: MANAGEMENT OF PATIEN T CARE PER NURSING PROTOCOL MR/POSTOP.[place] 02-19-2025 MR/POSTOP.[facility] Medical Records Department [address] [place] [address] Anesthesia Postop Eval I 02/19/25711 MR#: [id number] Acct: [id number] Name: TRUPTIAGAPITO HITESH Rep #: [id number] : 1950 74 From: Nelson Desai PCP: PR Hospital Status:REG SDC Y Race: C Location: [place] [address] Anesthesia: Postop Eval I Current Vital Signs [...] Eval 1 completed: Yes 02/19/25712 Date Nelson Collinsrobertmelissa Signature: Date CC: Signed Normal [facility] MR/[id number] 02-19-2025 /POSTOPAN2 [facility] Medical Records Department [address] [place] [address] Anesthesia Postop Eval II 02/19/25809 MR#: [id number] Acct: [id number] Name: AGAPITO MESSER Rep #: [id number] : 1950 74 From: Broderick Choudhury MD PCP: PR Hospital Status:[facility] Y Race: C Location: EN Anesthesia Postop [...] No Vomiting: No 02/19/25 0810 Date Broderick Rodsa Signature: Date CC: Signed Normal [facility] Surgery Specimen Level Alejandro 02-19-2025 Surgery Specimen Level IV Patient Age/Sex Location Account Attending Physician AGAPITO MESSER 74/M EN [id number] Tonio Rogers, DO Specimen: [id number] Received: 02/19/25 Status: EFRAIN [place] Num: [id number] Spec Type: EGD BIOPSY Subm Dr: Tonio Rogers DO HEADER OPERATION: EGD with biopsy and dilation PRE-OP DIAGNOSIS: Delayed gastric emptying, esophageal stricture, reflux esophagitis, dysphagia TISSUE SUBMITTED: A- Distal esophagus biopsy MICROSCOPIC DIAGNOSIS A. Esophagus, distal, biopsy: Squamous mucosa with reactive changes and mild acute inflammation - see note. Columnar mucosa, negative for goblet cell metaplasia. Note: PASD stain highlights rare extracellular fungal organisms favoring contamination. MICROSCOPIC DESCRIPTION Slides are reviewed. All matched controls reacted appropriately. These tests were developed and their performance characteristics determined by [facility]. They may not have been cleared or approved by the U.S. Food and Drug Administration. The FDA has determined that such clearance or approval is not necessary. The above immunohistochemical/dualISH markers are ordered and reviewed by the Pathologist. GROSS DESCRIPTION A. Received in formalin in a container labeled with the patient's name, date of , and distal esophagus biopsy are multiple cunningham-pink fragments of mucosal tissue measuring 1.0 x 0.8 x 0.3 cm in aggregate. Submitted in toto in A1. [facility] 02-19-2025 CPT:70331, 49259 Patient Age/Sex Location Account Attending Physician AGAPITO MESSER 74/M EN [id number] Tonio Rogers DO Signed (signature on file) Dr. Lizbeth Joy MD 02/26/25 1118 Normal [facility] Comment on above: Performed By: #### L 501.080 #### [facility] [address] [place], [address] MR/PATJoshua 02-14-2025 MR/PAT.[facility] Medical Records Department [address] [place] [address] PAT - Anesthesia 02/14/25 1518 MR#: [id number] Acct: [id number] Name: AGAPITO MESSER Rep #: [id number] : 1950 74 From: Broderick Choudhury MD PCP: PR Hospital Status:PRE [facility] Y Race: C Location: EN Pre-Assessment Diagnosis/Proposed Procedure Planned Operative Procedure(s): EGD Anesthesia History Anesthesia History - getter operator: Anesthesia History - getter operator Hx Hospitalization No 02/14/25 14:42 Any Problems [...] take am of surgery PONV PONV - getter operator: PONV - getter operator Female No 02/14/25 14:42 HX of Motion Sickness No 02/14/25 14:42 HX of N/V After Surgery No 02/14/25 14:42 Non-Smoker No 02/14/25 14:42 Duration of Surgery greater No 02/14/25 14:42 than 60 minutes Number of Risk Factors PONV Score Height Weight Height Weight: Anesthesia: Height Weight Height 6 ft 12/25/24 13:03 Respiratory Assessment Respiratory Assessment - getter operator: Respiratory Tract Infection Hx - getter operator Hx Respiratory Tract Infection No 02/14/25 14:42 STOP Sleep Apnea STOP Sleep Apnea - getter operator: STOP Sleep Apnea - getter operator Hx Hypertension No 02/14/25 14:42 Hx Sleep [...] Tobacco Use History Tobacco Use History - getter operator: Tobacco Use History - getter operator Tobacco Use Cigarettes 09/04/20 14:54 Smoking Status Current every day smoker 02/14/25 14:42 Hx Tobacco Use Yes 02/14/25 14:42 Years Smoking Packs Smoked per Day Smoking Cessation Date was within the last 15 years Hx Smoking Cessation Date Hx Smoking Cessation Counseling Hematologic Medial History Hematologic Hx - getter operator: 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 Specify any problems Hx of Preganancy in last 3 N/A 02/14/25 14:42 Months Nurse Filling Out Transfusion [facility] 02/14/25 14:42 Questions: Date: 02/14/25 02/14/25 14:42 Time: 14:52 02/14/25 14:42 Patient unable to answer at this time (ie. confused, unrespo /Reproduction History /Reproductive History - getter operator: /Reproductive Hx- getter operator Hx Now No 02/14/25 14:42 Gestational Age (in weeks): EDC: Hx Hx Para Hx Section SAB [facility] Medical History (Updated 02/14/25 @ 14:51 by [...] Score 1 (more content not included)... Normal [facility] Electrocardiogram reportOrde red By: Raymon Bhakta on 02-07-2025 EKG study [facility] Cardiovascular Services [address] [place] [address] 12 Lead EKG 02/06/25 1227 MR#: [id number] Acct: [id number] Name: AGAPITO MESSER Rep #:[id number] : [...] undetermined Abnormal ECG Confirmed by Raymon Bhakta ([id number]), image editor OLYA RODRÍGUEZ ([id number]) on 0:03:43 AM Referred By: Yoana Lion Confirmed By: Raymon Bhakta 02/07/25 1003 Date _ Raymon Bhakta MD CC: RANDALL Ontiveros; RANDALL Lee; [facility] ~ Signed [facility] Other Phone: 12 Lead EKGon 02-06-2025 12 Lead EKG [facility] Cardiovascular Services [address] [place] [address] 12 Lead EKG 02/06/25 1227 MR#: [id number] Acct: [id number] Name: AGAPITO MESSER Rep #: [id number] : 1950 74 From: Raymon Bhakta MD [...] undetermined Abnormal ECG Confirmed by Raymon Bhakta ([id number]), image editor OLYA RODRÍGUEZ ([id number]) on 02/07/2025 10:03:43 AM Referred By: Yoana Lion Confirmed By: Raymon Bhakta 02/07/25 1003 Date Raymon Bhakta MD CC: RANDALL Ontiveros; RANDALL Lee; [facility] Signed Normal [facility] Absolute lymphocyte countOrd ered By: Mckenna Penn on 02-06-2025 Lymphocytes Auto (Unsp spec) [#/Vol] 2.86 10*3/uL 0.83-4.51 [facility] Absolute neutrophil countOrd ered By: Mckenna Penn on 02-06-2025 Neutrophils (Bld) [#/Vol] 5.1 10*3/uL 2.0-7.7 [facility] Anion gap in Serum or Plasma Ordered By: Mckenna Penn on 02-06-2025 Anion gap [Moles/Vol] 12 mmol/L 03-08 [facility] Automated lymphocyte count a s percentage of total leukocytesOrdered By: Mckenna Penn on 02-06-2025 Lymphocytes/100 WBC Auto (Unsp spec) 31.7 % [facility] BUN/creatinine ratioOrdered By: Mckenna Penn on 02-06-2025 Urea nitrogen/Creatinine [Mass ratio] 16.9 mg/mg - [facility] Basic Metabolic Profile (BMP )on 02-06-2025 BUN/CRE 16.9 RATIO Normal 08-13 [facility] Comment on above: Performed By: #### L 500.2500, L501.9985, L100.0100 #### [facility] [address] [place], [address] Calcium [Mass/Vol] 8.9 mg/dL Normal 7.6-11.0 [facility] Comment on above: Performed By: #### L 500.2500, L501.9985, L100.0100 #### [facility] [address] [place], [address] Chloride [Moles/Vol] 103 mmol/L Normal 98-108 [facility] Comment on above: Performed By: #### L 500.2500, L501.9985, L100.0100 #### [facility] [address] [place], [address] CO2 [Moles/Vol] 21.3 mmol/L Normal 21.0-32.0 [facility] Comment on above: Performed By: #### L 500.2500, L501.9985, L100.0100 #### [facility] [address] [place], [address] Creatinine [Mass/Vol] 1.01 mg/dL Normal 0.70-1.20 [facility] Comment on above: Performed By: #### L 500.2500, L501.9985, L100.0100 #### [facility] [address] [place], [address] GAP 12 Normal 5-15 [facility] Comment on above: Performed By: #### L 500.2500, L501.9985, L100.0100 #### [facility] [address] [place], [address] GFR/1.73 sq M.predicted among non-blacks MDRD (S/P/Bld) [Vol rate/Area] 79 mL/min/{1.73_m2} Normal >60 [facility] Comment on above: Result Comment: mL/m in/1.73m2 CKD-EPI Creatinine Equation (2020) Performed By: #### L 500.2500, L501.9985, L100.0100 #### [facility] [address] [place], [address] Glucose [Mass/Vol] 150 mg/dL High 70-99 [facility] Comment on above: Performed By: #### L 500.2500, L501.9985, L100.0100 #### [facility] [address] [place], [address] Potassium [Moles/Vol] 4.7 mmol/L Normal 3.3-5.1 [facility] Comment on above: Result Comment: Hemo lysis present, Results??could be affected. ?? Performed By: #### L 500.2500, L501.9985, L100.0100 #### [facility] [address] [place], [address] Sodium [Moles/Vol] 136 mmol/L Normal 133-145 [facility] Comment on above: Performed By: #### L 500.2500, L501.9985, L100.0100 #### [facility] [address] [place], [address] Urea nitrogen [Mass/Vol] 17 mg/dL Normal 4-19 [facility] Comment on above: Performed By: #### L 500.2500, L501.9985, L100.0100 #### [facility] [address] [place], [address] Basophil percentageOrdered B y: Mckenna Fili on 02-06-2025 Basophils/100 WBC (Bld) 0.8 % 0-1 [facility] CBC W/Diff, Automatedon 01-23 Absolute Lymph 2.86 X10 3/uL Normal 0.83-4.51 [facility] Comment on above: Performed By: #### L 500.2500, L501.9985, L100.0100 #### [facility] [address] [place], [address] Absolute Neut 5.1 X10 3/uL Normal 2.0-7.7 [facility] Comment on above: Performed By: #### L 500.2500, L501.9985, L100.0100 #### [facility] [address] [place], [address] Basophils/100 WBC (Bld) 0.8 % Normal 0-1 [facility] Comment on above: Performed By: #### L 500.2500, L501.9985, L100.0100 #### [facility] [address] [place], [address] Eosinophils/100 WBC (Bld) 3.6 % Normal 0-5 [facility] Comment on above: Performed By: #### L 500.2500, L501.9985, L100.0100 #### [facility] [address] [place], [address] Erythrocyte distribution width (RBC) [Ratio] 14.0 % Normal 11.6-14.6 [facility] Comment on above: Performed By: #### L 500.2500, L501.9985, L100.0100 #### [facility] [address] [place], [address] Hematocrit (Bld) [Volume fraction] 44.3 % Normal 40-54 [facility] Comment on above: Performed By: #### L 500.2500, L501.9985, L100.0100 #### [facility] [address] [place], [address] Hemoglobin (Bld) [Mass/Vol] 15.2 g/dL Normal 13.0-16.5 [facility] Comment on above: Performed By: #### L 500.2500, L501.9985, L100.0100 #### [facility] [address] [place], [address] IG% 0.400 Normal 0.0-0.9 [facility] Comment on above: Result Comment: IG% - Immature Granulocytes (promyelocytes, myelocytes and metamyelocytes) > 1% indicates that a LEFT SHIFT is Present. Performed By: #### L 500.2500, L501.9985, L100.0100 #### [facility] [address] [place], [address] Lymphocytes/100 WBC (Bld) 31.7 % Normal 19-41 [facility] Comment on above: Performed By: #### L 500.2500, L501.9985, L100.0100 #### [facility] [address] [place], [address] MCH (RBC) [Entitic mass] 32.1 pg High 27.0-32.0 [facility] Comment on above: Performed By: #### L 500.2500, L501.9985, L100.0100 #### [facility] [address] [place], [address] MCHC (RBC) [Mass/Vol] 34.3 g/dL Normal 32-36 [facility] Comment on above: Performed By: #### L 500.2500, L501.9985, L100.0100 #### [facility] [address] [place], [address] MCV (RBC) [Entitic vol] 93.7 fL Normal 80-94 [facility] Comment on above: Performed By: #### L 500.2500, L501.9985, L100.0100 #### [facility] [address] [place], [address] Monocytes/100 WBC (Bld) 7.1 % Normal 0-10 [facility] Comment on above: Performed By: #### L 500.2500, L501.9985, L100.0100 #### [facility] [address] [place], [address] Neutrophils/100 WBC (Bld) 56.4 % Normal 47-70 [facility] Comment on above: Performed By: #### L 500.2500, L501.9985, L100.0100 #### [facility] [address] [place], [address] Nucleated RBC (Bld) [#/Vol] 0 10*3/uL Normal 0-5 [facility] Comment on above: Performed By: #### L 500.2500, L501.9985, L100.0100 #### [facility] [address] [place], [address] Platelet mean volume (Bld) [Entitic vol] 10.3 fL Normal 6.2-12.0 [facility] Comment on above: Performed By: #### L 500.2500, L501.9985, L100.0100 #### [facility] [address] [place], [address] Platelets (Bld) [#/Vol] 216 10*3/uL Normal 150-450 [facility] Comment on above: Performed By: #### L 500.2500, L501.9985, L100.0100 #### [facility] [address] [place], [address] RBC (Bld) [#/Vol] 4.73 10*6/uL Normal 4.6-6.2 [facility] Comment on above: Performed By: #### L 500.2500, L501.9985, L100.0100 #### [facility] [address] [place], [address] RDW SD 48.6 fl High 35.1-43.9 [facility] Comment on above: Performed By: #### L 500.2500, L501.9985, L100.0100 #### [facility] [address] [place], [address] WBC (Bld) [#/Vol] 9.0 10*3/uL Normal 4.4-11.0 [facility] Comment on above: Performed By: #### L 500.2500, L501.9985, L100.0100 #### [facility] [address] [place], [place], [address] Carbon dioxide, total [Moles /volume] in Central venous bloodOrdered By: Mckenna Penn on 02-06-2025 CO2 [Moles/Vol] 21.3 mmol/L 21.0-32.0 [facility] Chloride assayOrdered By: Ba Penn on 02-06-2025 Chloride [Moles/Vol] 103 mmol/L 98-108 [facility] Eosinophil percentageOrdered By: Mckenna Fili on 02-06-2025 Eosinophils/100 WBC (Bld) 3.6 % 0-5 [facility] Erythrocyte distribution wid th (RBC) [Ratio]Ordered By: Mckenna Penn on 02-06-2025 Erythrocyte distribution width (RBC) [Entitic vol] 48.6 fL High 35.1-43.9 [facility] Erythrocyte distribution wid th ratioOrdered By: Mckenna Penn on 02-06-2025 Erythrocyte distribution width (RBC) [Ratio] 14.0 % 11.6-14.6 [facility] Erythrocyte distribution wid th standard deviationOrdered By: Mckennashayne Penn on 02-06-2025 Erythrocyte distribution width (RBC) [Ratio] 48.6 fl High 35.1-43.9 [facility] GFR/1.73 sq M.predicted mo g non-blacks MDRD (S/P/Bld) [Vol rate/Area]Ordered By: Mckenna Penn on 02-06-2025 Estimated GFR (MDRD) Non-Af Amer 79 >60 [facility] Comment on above: mL/min/1.73m2 CKD-EP I Creatinine Equation (2020) Glomerular filtration rate ( GFR) estimation/1.73 sq m using serum, plasma, or whole bOrdered By: Mckenna Penn on 02-06-2025 GFR/1.73 sq M.predicted among non-blacks MDRD (S/P/Bld) [Vol rate/Area] 79 mL/min/{1.73_m2} >60 [facility] Comment on above: mL/min/1.73m2 CKD-EP I Creatinine Equation (2020) Hematocrit Auto (Bld) [Volum e fraction]Ordered By: Mckenna Penn on 02-06-2025 Hematocrit (Bld) [Volume fraction] 44.3 % 40-54 [facility] Hemoglobin A1con 02-06-2025 HbA1c (Bld) [Mass fraction] 8.0 % High <=5.6 [facility] Comment on above: Result Comment: Norm al < 5.7 % Prediabetic 5.7 - 6.4 % Diabetic >or= 6.5 % Please note range changes. Performed By: #### L 500.2500, L501.9985, L100.0100 #### [facility] [address] [place], [place], [id number] Hemoglobin A1c percentageOrd ered By: Mckenna Penn on 02-06-2025 HbA1c (Bld) [Mass fraction] 8.0 % High <5.7 [facility] Comment on above: Normal < 5.7 % Predi abetic 5.7 - 6.4 % Diabetic >or= 6.5 % Please note range changes. Hemoglobin measurementOrdere d By: Mckenna Penn on 02-06-2025 Hemoglobin (Bld) [Mass/Vol] 15.2 g/dL 13.0-16.5 [facility] Immature granulocytes/100 WB C Auto (Bld)Ordered By: Mckenna Penn on 02-06-2025 Immature granulocytes/100 WBC (Bld) 0.400 % 0.0-0.9 [facility] Comment on above: IG% - Immature Granu locytes (promyelocytes, myelocytes and metamyelocytes) > 1% indicates that a LEFT SHIFT is Present. Lymphocytes Auto (Unsp spec) [#/Vol]Ordered By: Mckenna Penn on 02-06-2025 Lymphocytes (Bld) [#/Vol] 2.86 10*3/uL 0.83-4.51 [facility] Lymphocytes/100 WBC Auto (Un sp spec)Ordered By: Mckenna Penn on 02-06-2025 Lymphocytes/100 WBC (Bld) 31.7 % 19-41 [facility] MCV (mean corpuscular volume ) determinationOrdered By: Mckenna Penn on 02-06-2025 MCV (RBC) [Entitic vol] 93.7 fL 80-94 [facility] Mean corpuscular hemoglobin (MCH) determinationOrdered By: Mckenna Penn on 02-06-2025 MCH (RBC) [Entitic mass] 32.1 pg High 27.0-32.0 [facility] Mean corpuscular hemoglobin concentration (MCHC) determinationOrdered By: Mckenna Penn on 02-06-2025 MCHC (RBC) [Mass/Vol] 34.3 g/dL 32-36 [facility] Mean platelet volume determi nationOrdered By: Mckenna Penn on 02-06-2025 Platelet mean volume (Bld) [Entitic vol] 10.3 fL 6.2-12.0 [facility] Monocyte percentageOrdered B y: Mckenna Penn on 02-06-2025 Monocytes/100 WBC (Bld) 7.1 % 0-10 [facility] Neutrophil percentageOrdered By: Mckenna Penn on 02-06-2025 Neutrophils/100 WBC (Bld) 56.4 % 47-70 [facility] Nucleated red blood cell per centageOrdered By: Mckenna Penn on 02-06-2025 Nucleated RBC/100 WBC (Bld) [Ratio] 0 % 0-5 [facility] Platelet countOrdered By: Ba Penn on 02-06-2025 Platelets (Bld) [#/Vol] 216 10*3/uL 150-450 [facility] Potassium (Unsp spec) [Mass/ Vol]Ordered By: Mckenna Penn on 02-06-2025 Potassium [Moles/Vol] 4.7 mmol/L 3.3-5.1 [facility] Comment on above: Hemolysis present, R esults could be affected. Potassium measurement (mass/ volume)Ordered By: Mckenna Penn on 02-06-2025 Potassium (Unsp spec) [Mass/Vol] 4.7 mmol/L 3.3-5.1 [facility] Comment on above: Hemolysis present, R esults could be affected. RBC Auto (Bld) [#/Vol]Ordere d By: Mckenna Penn on 02-06-2025 RBC (Bld) [#/Vol] 4.73 10*6/uL 4.6-6.2 [facility] Serum creatinine measurement (mass/volume)Ordered By: Mckenna Penn on 02-06-2025 Creatinine [Mass/Vol] 1.01 mg/dL 0.70-1.20 [facility] Serum glucose measurement (m ass/volume)Ordered By: Mckenna Penn on 02-06-2025 Glucose [Mass/Vol] 150 mg/dL High 70-99 [facility] Serum or plasma calcium tri urement (mass/volume)Ordered By: Mckenna Penn on 02-06-2025 Calcium [Mass/Vol] 8.9 mg/dL 7.6-11.0 [facility] Serum or plasma urea nitroge n measurement (mass/volume)Ordered By: Mckenna Penn on 02-06-2025 Urea nitrogen [Mass/Vol] 17 mg/dL 4-19 [facility] Sodium levelOrdered By: Keila Penn on 02-06-2025 Sodium [Moles/Vol] 136 mmol/L 133-145 [facility] White blood cell (WBC) count Ordered By: Mckenna Penn on 02-06-2025 WBC (Bld) [#/Vol] 9.0 10*3/uL 4.4-11.0 [facility] Modified Barium Swallow Stud yon 01-19-2025 Modified Barium Swallow Study [facility] [address] [place] [address] Modified Barium Swallow Study MR#: [id number] Acct: [id number] Name: AGAPITO MESSER Rep #: [id number] : 1950 74 From: Kathryn Montero M.A. [facility]-RELIABILITY TECHNICIAN Modified Barium Swallow Patient Information Study Date: 01/19/25 Study Time: 12:20 Direct Billable Minutes: 92 Total Minutes procedure reportin Diagnosis: Dysphagia R13.10 Referring Physician: Luz Bacon Reason for Referral: Assess swallow function, assess risk for aspiration, and determine recommendations for least restrictive diet textures and compensatory strategies to facilitate safe po intake. Medical History: Patient was referred by Luz Bacon CNP at [facility]. Pt was recently seen for OV [...] liquid has regurgitated during liquid wash attempts (RELIABILITY TECHNICIAN recommended trying a warm liquid). PMH: Traumatic [...] swallow: Result: 1= does not enter airway [place] Thick Liquid via small single sip: cup: [...] of greater than half of bolus Bolus Preparation/Mastication: Slow prolonged chewing/mashing with complete recollection Bolus Transport/Lingual Motion: Delayed initiation of tongue motion Oral Residue: Trace residue lining oral structures Pharyngeal Phase Initiation of Pharyngeal Swallow: Bolus head in pyriforms Soft Palate Elevation: Trace column of contrast/air between soft palate and pharyngeal wall Laryngeal Elevation: Partial superior movement thyroid cart/partial apprx aryt-ep (more content not included)... Normal [facility] Gastric Emptying Studyon Gastric Emptying Study [facility] [address] [place], [place] [address] Gastric Emptying Study MR#: [id number] Acct: [id number] Name: AGAPITO MESSER HITESH Rep #: [id number] : 1950 M 74 From: Cooper longoria MD PCP: [facility] Status: REG CLI Study: Gastric Emptying Study Date of Exam: 01/11/25 Exam# [id number] Ordering Dr: Luz Bacon PROCEDURE: GASTRIC EMPTYING [...] IMPRESSION: Normal gastric emptying examination. Reading Location: [place] [address] CC: MARIZA Bacon; [facility] Single Stayer Operator: Signed Normal [facility] Abdomen/Pelvis without Conto n 01-02-2025 Abdomen/Pelvis without Cont [facility] [address] [place] [address] Abdomen/Pelvis without Cont MR#: [id number] Acct: [id number] Name: AGAPITO MESSER Rep #: [id number] : 1950 M 74 From: Cooper longoria MD PCP: [facility] Status: REG CLI Study: Abdomen/Pelvis without Cont Date of Exam: 12/23 11/18 Exam# [id number] Ordering Dr: Rey Wallace MD PROCEDURE: ABDOMEN/PELVIS [...] use of iterative reconstruction technique). Reading Location: [facility] CC: Dr. Rey Wallace MD; [facility] Single Stayer Operator: Signed Normal [facility] PSA, total screeningOrdered By: Shakira Dee on 01-01-2025 Prostate Specific Antigen Screen 0.25 ng/mL 0.02-4.00 [facility] Comment on above: This test was perfor [...] 01-01-2025 PSA,TOT SCREEN 0.25 ng/mL Normal 0.02-4.00 [facility] Comment on above: Result Comment: This test [...] values. Performed By: #### L 501.9910 #### [facility] [address] [place], [address] L/S Spine Bending Flex/Vanderwagen 12-25-2024 L/S Spine Bending Flex/Ext [facility] [address] [place] [address] L/S Spine Bending Flex/Ext MR#: [id number] Acct: [id number] Name: AGAPITO MESSER Rep #: [id number] : 1950 M 74 From: Alcides Martinez MD PCP: [facility] Status: DEP AMB Study: L/S Spine Bending Flex/Ext Date of Exam: 12/25 Exam# [id number] Ordering Dr: Tori Hernandez EXAM: XR Lumbosacral [...] findings in the lumbar spine. Reading [facility] CC: RANDALL Adorno; [facility] Single Stayer Operator: Signed Normal [facility] Orthopedic Visit Reporton Orthopedic Visit Report [facility] [address] [place], [place] [id number] OFFICE VISIT Date of Service: 12/25/24 MR#: [id number] Acct: [id number] Name: AGAPITO MESSER Rep #: [id number] : 1950 Provider: Dr. Marcos Archer MD Age/Sex: 74/M Location: [facility] [place] Status: Signed Intake Vital Signs 12/20/22 10:38 12/25/24 13:03 Height 6 ft 6 ft Weight: 186 lb 4 oz BMI 25.2 Intake Visit Reasons: LUMBAR SPINE Chief Complaint: food getting stuck Allergies hydrocodone (From Vicodin) Allergy (Verified 12/20/22 10:41) Rash celecoxib (From Celebrex) Adverse Reaction (Verified 12/20/22 10:41) goofy Have you fallen in the past year?: No [facility] History Traumatic amputation of ear Finger [...] did do PT 10 years ago at [facility] but he had to stop as it [...] past year?: No 12/25/24 1357 Date Marcos Archer MD Cosigner Signature: Date (if applicable) CC: Dr. Kumar Bro MD Normal [facility] Gastroenterology Visit Repor ton 12-18-2024 Gastroenterology Visit Report [facility] [address] [place] [address] OFFICE VISIT Date of Service: 12/18/24 MR#: [id number] Acct: [id number] Name: AGAPITO MESSER Rep #: [id number] : 1950 Provider: MARIZA spring Age/Sex: 74/M Location: [facility] [place] Status: Signed Intake Vital Signs 12/20/22 10:38 [...] any questions or concerns at this time. [facility] Medical History Traumatic amputation of [...] to the office today for establishment with [facility] for difficulty swallowing with a history having [...] has exposure to questionable drinking water at [place], asbestos and [place]. He reports some difficulty chewing due to [...] alert an (more content not included)... Normal [facility] AGAPITO MESSER ([id number]) 1950 M Date Time Provider Department 11/15/24 JAMES ELIZALDE [facility] During your visit today, we recorded [...] - Unknown Comments: makes him loopy VICODIN (HYDROCODONE-ACETAMINOPHE*1 12/05/2019 4 - Hives Comments: tightness in chest [...] 100 mg capsule 100 mg. - omega 1-qjk-ckv-fish oil (FISH OIL) 100-160-1,000 mg cap Take [...] Encounter Status:Closed by LLUVIA ROGER on 11/15/24 [facility] CNOVon 11-14-2024 CNOV Office Visit (UCWSTR ) AGAPITO MESSER ([id number]) 1950 M Date Time Provider Department 11/14/24 1:30 PM [facility] During your visit today, we recorded the [...] - Decongestants: Topical spray: Oxymetazoline (Afrin? Nasal [place]); limit to 3-4 days maximum Oral medication: [...] depression, anxiety, and TIA who presents to [facility] today for evaluation of cough, [...] Pulmonary: Effor (more content not included)... Normal [facility] COVID AND INFLUENZA A/B AND RSV PCR, ROUTINEon 11-14-2024 SARS-CoV-2 (COVID-19) RNA ISABEL+probe Ql (Unsp spec) SARS-COV-2 (AGENT OF COVID-19) RNA: Not detected INFLUENZA A RNA: Not detected INFLUENZA B RNA: Not detected RESPIRATORY SYNCYTIAL VIRUS (RSV) RNA: Not detected Normal [facility] Comment on above: Performed By: #### C VFLRS #### [facility] CLIA [id number] [address] [place] [address] [place] Spine Lumbar (Routine)on Spine Lumbar (Routine) [facility] [address] [place] [address] Spine Lumbar (Routine) MR#: [id number] Acct: [id number] Name: AGAPITO MESSER Rep #: [id number] : 1950 M 73 From: Gabriela vo MD [facility]CP: [facility] Status: REG CLI Study: Spine Lumbar (Routine) Date of Exam: 09/26/24 Exam# [id number] Ordering Dr: Larisa Leal [id number] HISTORY: RT FOOT DROP, low back pain [...] Brown MD at 14:40 EST , CC: Larisa Leal; [facility] Single Stayer Operator: Signed Normal [facility] CT THORAX SCREENING W/O CONT [facility] 05-16-2024 CT THORAX SCREENING W/O CONTRAST ORIGINAL [...] Sign Date: 05/16/2024 11:44:14 AM Ordering Provider: ROBINY REFERRING Normal [facility] ([place]) OVon 04-10-2024 [facility] Office Visit (UCWSTR ) AGAPITO MESSER ([id number]) 1950 M Date Time Provider Department 04/10/24 12:15 PM KUMAR OLIVARES [facility] During your visit today, we recorded the following information about you: Temperature Pulse Respiration Blood pressure 98.2 degrees 125/minute 17/minute 132/62 Weight 85.1 kg Kumar Olivares APRN.GERIATRIC NURSE ASSISTANT 04/10/2024 12:40 PM Signed Subjective HPI Nontoxic-appearing [...] (COLACE) 100 mg capsule 100 mg. omega 6-ako-afh-fish oil (FISH OIL) 100-160-1,000 mg cap Take [...] is a (more content not included)... Normal [facility] LABORATORYOrdered By: SYSTEM SYSTEM on 12-23-2023 Prostate specific Ag [Mass/Vol] 0.27 ng/mL Normal 0.00 - 4.00 ng/mL AO ADM SS PSAon 12-23-2023 Prostate Specific Antigen 0.27 ng/mL Normal 0.00-4.00 [facility] ([place] Comment on above: Performed By: #### P #### [address] [address] XR Chest 2 Viewson EXAMINATION: XR CHES [...] No evidence of active opacities. MACRO: None [facility] Radiology Study observation (narrative) [facility] XR Chest 2 ViewsOrdered By: Gene Goldsmith on 06-15-2023 [employer] Work Phone: CT LD LUNG SCREENINGon 03-31 CT LD LUNG SCREENING AGAPITO MESSER Ma [id number] Ordering physician: Domenic Khan LOC:CAT [id number] Attending physician: Domenic Khan 1950 72 DOS: 03/29/23 Acc#: [id number] Exam/Proc: CT LD LUNG SCREENING Dept: COMPUTED [...] By Raymon Crandall MD 03/31/2023 7:11:02 PM [facility] Workstation ID : [id number] REPORT SIGNATURE ON FILE Electronically Signed Date/Time: 03/31/231910 Dictated Date/time: 03/31/231907 CC: Normal [facility] Glucose Glucometer (dC) [M ass/Vol]Ordered By: Dr. Flores on 12-20-2022 Glucose [Mass/Vol] 250 mg/dL 74-106 [facility] Comment on above: MANAGEMENT OF PATIEN T CARE PER NURSING PROTOCOL XR CHEST 2V FRONTAL/LATon [facility] XR Chest PA and Lateralon IMPRESSION: No acute radiographic abnormality. Single Stayer Operator: PSC[facility] Transcribe Date/Time: Dec 16 2022 11:20A Dictated by : BRANDEN SCHULTZ MD This examination was interpreted and the report reviewed and electronically signed by: BRANDEN SCHULTZ MD on Dec 16 2022 11:21AM [facility] DIVISION OF RADIOLOGY * * *Final Report* [...] right humeral head. DIVISION OF RADIOLOGY Provider, [facility] - 12/16/2022 * * *Final [...] head. IMPRESSION IMPRESSION: No acute radiographic abnormality. Single Stayer Operator[facility] Transcribe Date/Time: Dec 16 2022 11:20A Dictated by : BRANDEN SCHULTZ MD This examination was interpreted and the report reviewed and electronically signed by: BRANDEN SCHULTZ MD on Dec 16 2022 11:21AM EST [facility] Radiology Study observation (narrative) [facility] XR Chest PA and LateralOrder ed By: Cc Provider on 12-16-2022 [facility] LABORATORYOrdered By: Mini Dee on 11-17-2022 [...] Dr. Wallace on 09-21-2022 Color (Unsp spec) Brown [facility] - Miscellaneous t estsOrdered By: Dr. Wallace on 09-21-2022 Service comment (Unsp spec) [Interp] See comment [facility] Comment on above: Physician questions regarding Calculi Analysis contact [facility] at: [phone]. Calculi report will follow via computer, mail or wind projects supervisor delivery. Measurement of weight of sto neOrdered By: Dr. Wallace on 09-21-2022 Weight (Stone) 50 mg [facility] No Panel InformationOrdered By: Dr. Wallace on 09-21-2022 Stone Analysis (T) See comment [facility] Comment on above: Percentage (Represen ts the % composition) Stone Calcium Oxalate Monohydrate 100 % [facility] Origin of StoneOrdered By: Larisa Wallace on 09-21-2022 Origin Nom (Stone) Not Provided [facility] Size of stoneOrdered By: Dr. Wallace on 09-21-2022 Size (Stone) [Entitic vol] 4x4 mm [facility] Comment on above: Multiple pieces rece ived. Dimensions of the largest piece reported. Thin prep Papanicolaou smear with manual screeningOrdered By: Dr. Wallace on 09-21-2022 Thin prep Papanicolaou smear with manual screening See comment [facility] Comment on above: Photograph will foll ow under a separate cover. GLUCOSE, BLOOD (POC)on 09-18 Glucose [Mass/Vol] 123 mg/dL Abnormal 74 - 99 mg/dL [facility] UA DIP, URINE (POC)on 2021 BILIRUBIN UA (POCT) Negative Negative [facility] CLARITY UA (POCT) Slightly Cloudy [facility] COLOR UA (POCT) Yellow [facility] GLUCOSE UA (POCT) >=1000 Abnormal Negative mg/dL [facility] HEMOGLOBIN/BLOOD UA (POCT) Negative Negative [facility] KETONE UA (POCT) Trace Negative mg/dL [facility] LEUKOCYTES UA (POCT) Negative [facility] NITRITE UA (POCT) Negative Negative [facility] PH UA (POCT) 5.5 4.5 - 8.0 [facility] Protein Ql (U) Negative Negative mg/dL [facility] SPECIFIC GRAVITY UA (POCT) 1.025 1.005 - 1.030 [facility] UROBILINOGEN UA (POCT) 0.2 E.U./dL Normal E.U./dL [facility] Absolute lymphocyte countOrd ered By: Dr. Griffin on 09-15-2022 Lymphocytes Auto (Unsp spec) [#/Vol] 4.21 10*3/uL 0.83-4.51 [facility] Basophil percentageOrdered B y: ED PROVIDER on 09-15-2022 Basophil percentage 0 SEEN /hpf 0-5 [facility] Basophil percentageOrdered B y: Dr. Griffin on 09-15-2022 Basophils/100 WBC (Bld) 0.5 % 0-1 [facility] Chloride [Moles/Vol] 108 mmol/L 98-107 [facility] Eosinophils/100 WBC (Bld) 3.0 % 0-5 [facility] Glucose [Mass/Vol] 204 mg/dL 74-106 [facility] Comment on above: Glucose result great er than or equal to 200 mg/dLsuggests DIABETES MELLITUS per A.D.A. criteria. Neutrophils (Bld) [#/Vol] 4.8 10*3/uL 2.0-7.7 [facility] Neutrophils/100 WBC (Bld) 47.1 % 47-70 [facility] Potassium [Moles/Vol] 4.4 mmol/L 3.5-5.1 [facility] Sodium [Moles/Vol] 140 mmol/L 136-145 [facility] WBC (Bld) [#/Vol] 10.2 10*3/uL 4.4-11.0 [facility] Bilirubin Test strip Ql (U)O rdered By: ED PROVIDER on 09-15-2022 Bilirubin Ql (U) Negative Negative [facility] Blood erythrocytes count (nu mber/volume)Ordered By: Dr. Griffin on 09-15-2022 RBC (Bld) [#/Vol] 5.24 10*6/uL 4.6-6.2 [facility] Blood hemoglobin measurement (mass/volume)Ordered By: Dr. Griffin on 09-15-2022 Hemoglobin (Bld) [Mass/Vol] 16.4 g/dL 13.0-16.5 [facility] Blood lymphocytes/100 leukoc ytesOrdered By: Dr. Griffin on 09-15-2022 Lymphocytes/100 WBC (Bld) 41.4 % 19-41 [facility] Blood monocytes/100 leukocyt esOrdered By: Dr. Griffin on 09-15-2022 Monocytes/100 WBC (Bld) 7.6 % 0-10 [facility] Blood platelet mean volumeOr dered By: Dr. Griffin on 09-15-2022 Platelet mean volume (Bld) [Entitic vol] 10.4 fL 6.2-12.0 [facility] Determination of erythrocyte mean corpuscular volume (MCV)Ordered By: Dr. Griffin on 09-15-2022 MCV (RBC) [Entitic vol] 93.7 fL 80-94 [facility] Hematocrit Auto (Bld) [Volum e fraction]Ordered By: Dr. Griffin on 09-15-2022 Hematocrit (Bld) [Volume fraction] 49.1 % 40-54 [facility] Ketones Test strip Ql (U)Ord ered By: ED PROVIDER on 09-15-2022 Ketones Ql (U) 5 mg/dl Negative [facility] - Chemistry and C hemistry - challengeOrdered By: Dr. Griffin on 09-15-2022 CO2 [Moles/Vol] 26.0 mmol/L 21.0-32.0 [facility] Urea nitrogen/Creatinine [Mass ratio] 13.9 mg/mg 10-20 [facility] - Hematology and Cell countsOrdered By: Dr. Griffin on 09-15-2022 Erythrocyte distribution width (RBC) [Entitic vol] 47.7 fL 35.1-43.9 [facility] Erythrocyte distribution width (RBC) [Ratio] 13.7 % 11.6-14.6 [facility] Immature granulocytes/100 WBC (Bld) 0.400 % 0.0-0.9 [facility] Comment on above: IG% - Immature Granu locytes (promyelocytes, myelocytes and metamyelocytes) > 1% indicates that a LEFT SHIFT is Present. MCH (RBC) [Entitic mass] 31.3 pg 27.0-32.0 [facility] Nucleated RBC/100 WBC (Bld) [Ratio] 0 % 0-5 [facility] MCHC Auto (RBC) [Mass/Vol]Or dered By: Dr. Griffin on 09-15-2022 MCHC (RBC) [Mass/Vol] 33.4 g/dL 32-36 [facility] Mucus LM Ql (Urine sed)Order ed By: ED PROVIDER on 09-15-2022 Mucus Ql (Urine sed) 0 SEEN /hpf [facility] Nitrite Test strip Ql (U)Ord ered By: ED PROVIDER on 09-15-2022 Nitrite Ql (U) Negative Negative [facility] No Panel InformationOrdered By: Dr. Griffin on 09-15-2022 Estimated Creatinine Clearance Calc 61.84 ml/min [facility] Estimated GFR (MDRD) Amer 75 mL/min >60 [facility] Comment on above: GFR Calc Estimated GFR (MDRD) Non-Af Amer 62 mL/min >60 [facility] Comment on above: Non- GFR Calc Platelets bldOrdered By: Dr. Griffin on 09-15-2022 Platelets (Bld) [#/Vol] 186 10*3/uL 150-450 [facility] Protein Test strip Ql (U)Ord ered By: ED PROVIDER on 09-15-2022 Protein Ql (U) Negative Negative [facility] Serum or plasma calcium tri urement (mass/volume)Ordered By: Dr. Griffin on 09-15-2022 Calcium [Mass/Vol] 9.6 mg/dL 8.5-10.1 [facility] Serum or plasma creatinine m easurement (mass/volume)Ordered By: Dr. Griffin on 09-15-2022 Creatinine [Mass/Vol] 1.22 mg/dL 0.70-1.30 [facility] Comment on above: The validity of the calculated GFR & GFRAA in patients over 70 years has not been determined. Clinical correlation is essential. Serum or plasma urea nitroge n measurement (mass/volume)Ordered By: Dr. Griffin on 09-15-2022 Urea nitrogen [Mass/Vol] 17 mg/dL 7-18 [facility] Squamous epithelial cells de tection in urine sediment by light microscopyOrdered By: ED PROVIDER on 09-15-2022 Epithelial cells.squamous LM Ql (Urine sed) 0 SEEN /hpf 0-5 [facility] Thin prep Papanicolaou smear with manual screeningOrdered By: Dr. Griffin on 09-15-2022 Thin prep Papanicolaou smear with manual screening 6 5-15 [facility] Urine blood detectionOrdered By: ED PROVIDER on 09-15-2022 RBC Ql (U) 250 /ul Negative [facility] RBC Ql (U) 10-25 SEEN /hpf 0-5 [facility] Urine clarityOrdered By: ED PROVIDER on 09-15-2022 Clarity (U) Clear Clear [facility] Urine color determinationOrd ered By: ED PROVIDER on 09-15-2022 Color (U) Yellow Yellow [facility] Urine glucose detectionOrder ed By: ED PROVIDER on 09-15-2022 Glucose Ql (U) 1000 mg/dl Normal [facility] Urine leukocyte esterase det ection by dipstickOrdered By: ED PROVIDER on 09-15-2022 Leukocyte esterase Test strip Ql (U) Negative Negative [facility] Urine pHOrdered By: ED PROVI FRANCISCA on 09-15-2022 pH (U) 5.0 [pH] 5.0 - 8.0 [facility] Urine sediment bacteria coun t by microscopy (number/high power field)Ordered By: ED PROVIDER on 09-15-2022 Bacteria LM.HPF (Urine sed) [#/Area] 0 /[HPF] None Seen [facility] Urine specific gravity measu rementOrdered By: ED PROVIDER on 09-15-2022 Specific gravity (U) [Rel density] 1.015 1.002-1.03 0 [facility] Urobilinogen Auto test strip Ql (U)Ordered By: ED PROVIDER on 09-15-2022 Urobilinogen Ql (U) Normal mg/dl Normal [facility] LABORATORYOrdered By: Lexi Schultz on 09-04-2022 Glucose [Mass/Vol] 128 mg/dL Invalid Interpretation Code 82 - 115 mg/dL [facility] Work Phone: LABORATORYOrdered By: Clotilde Emery on 08-17-2022 Albumin [...] Non-Reactive (08/17/22 7:59 AM) Invalid Interpretation Code Non-Reacti ve AH ADM SS HCV Ab IA Ql Nonreactive: Samples with a value < 0.80 are considered nonreactive (negative) for antibodies to HCV.A negative test result does not exclude the possibility of exposure to or infection with HCV. HCV antibodies may be undetectable in some stages of the infection and in some clinical conditions. Invalid Interpretation Code AH Chemistry S LABORATORYOrdered By: Leeann De León on 05-18-2022 Glucose [Mass/Vol] 186 mg/dL Invalid Interpretation Code 82 - 115 mg/dL [facility] Work Phone: Vital Signs Date Time Vital Sign Value Performing Clinician Facility 08-14-2025 22:55-0400 Body temperature 97.6 [degF] [facility] 08-14-2025 22:55-0400 Diastolic blood pressure 72 mm[Hg] [facility] 08-14-2025 22:55-0400 Heart rate 116 /min [facility] 08-14-2025 22:55-0400 Respiratory rate 18 /min [facility] 08-14-2025 22:55-0400 SaO2% (BldA) [Mass fraction] 100 % [facility] 08-14-2025 22:55-0400 Systolic blood pressure 144 mm[Hg] [facility] 08-14-2025 21:39-0400 Body mass index (BMI) [Ratio] 24.2 kg/m2 [facility] 08-14-2025 21:39-0400 Body weight 83.3 kg [facility] 08-14-2025 20:06-0400 Body height 185.42 cm [facility] 08-13-2025 12:25-0400 Diastolic Blood Pressure Non-Invasive 57 mm[Hg] JEROME SANTANA MD [facility] 08-13-2025 12:25-0400 Heart rate 93 /min JEROME SANTANA MD [facility] 08-13-2025 12:25-0400 Mean blood pressure 72 mm[Hg] JEROME SANTANA MD [facility] 08-13-2025 12:25-0400 Respiratory rate 18 /min JEROME SANTANA MD [facility] 08-13-2025 12:25-0400 Systolic Blood Pressure Non-Invasive 103 mm[Hg] JEROME SANTANA MD [facility] 08-13-2025 11:42-0400 Body height 182.9 cm JEROME SANTANA MD [facility] 08-13-2025 11:42-0400 Body temperature 98.42 [degF] JEROME SANTANA MD [facility] 08-13-2025 11:42-0400 Body weight 84.1 kg JEROME SANTANA MD [facility] 08-13-2025 11:42-0400 Diastolic Blood Pressure Non-Invasive 71 mm[Hg] JEROME SANTANA MD [facility] 08-13-2025 11:42-0400 Heart rate 117 /min JEROME SANTANA MD [facility] 08-13-2025 11:42-0400 Respiratory rate 18 /min JEROME SANTANA MD [facility] 08-13-2025 11:42-0400 Systolic Blood Pressure Non-Invasive 131 mm[Hg] JEROME SANTANA MD [facility] 08-10-2025 13:38-0400 Body temperature 97.9 [degF] [facility] 08-10-2025 13:38-0400 Diastolic blood pressure 57 mm[Hg] [facility] 08-10-2025 13:38-0400 Heart rate 102 /min [facility] 08-10-2025 13:38-0400 Respiratory rate 18 /min [facility] 08-10-2025 13:38-0400 SaO2% (BldA) [Mass fraction] 97 % [facility] 08-10-2025 13:38-0400 Systolic blood pressure 111 mm[Hg] [facility] 08-09-2025 14:10-0400 Body mass index (BMI) [Ratio] 24.4 kg/m2 [facility] 08-09-2025 14:10-0400 Body weight 84 kg [facility] 08-09-2025 12:45-0400 Inhaled oxygen flow rate 4 L/min [facility] 02-19-2025 07:20-0400 Body temperature 98 [degF] [facility] 02-19-2025 07:20-0400 Diastolic blood pressure 63 mm[Hg] [facility] 02-19-2025 07:20-0400 Heart rate 93 /min [facility] 02-19-2025 07:20-0400 Respiratory rate 16 /min [facility] 02-19-2025 07:20-0400 SaO2% (BldA) [Mass fraction] 95 % [facility] 02-19-2025 07:20-0400 Systolic blood pressure 101 mm[Hg] [facility] 02-19-2025 06:01-0400 Body height 185.42 cm [facility] 02-19-2025 06:01-0400 Body mass index (BMI) [Ratio] 25.2 kg/m2 [facility] 02-19-2025 06:01-0400 Body weight 86.9 kg [facility] 12-25-2024 13:03-0500 Body height 182.88 cm [facility] 12-25-2024 13:03-0500 Body mass index (BMI) [Ratio] 25.2 kg/m2 [facility] 12-25-2024 13:03-0500 Body weight 84.48 kg [facility] 12-03-2024 10:26-0500 Diastolic Blood Pressure Non-Invasive 62 mm[Hg] MIKE AGUIRRE MD [facility] 12-03-2024 10:26-0500 Heart rate 89 /min MIKE AGUIRRE MD [facility] 12-03-2024 10:26-0500 Respiratory rate 18 /min MIKE AGUIRRE MD [facility] 12-03-2024 10:26-0500 Systolic Blood Pressure Non-Invasive 135 mm[Hg] MIKE AGUIRRE MD [facility] 12-03-2024 08:49-0500 Blood Pressure Location MIKE AGUIRRE MD [facility] 12-03-2024 08:49-0500 Blood Pressure Method MIKE AGUIRRE MD [facility] 12-03-2024 08:49-0500 Body temperature 97.7 [degF] MIKE AGUIRRE MD [facility] 12-03-2024 08:49-0500 Body weight 86.4 kg MIKE AGUIRRE MD [facility] 12-03-2024 08:49-0500 Diastolic Blood Pressure Non-Invasive 68 mm[Hg] MIKE AGUIRRE MD [facility] 12-03-2024 08:49-0500 Heart rate 90 /min MIKE AGUIRRE MD [facility] 12-03-2024 08:49-0500 Respiratory rate 17 /min MIKE AGUIRRE MD [facility] 12-03-2024 08:49-0500 Systolic Blood Pressure Non-Invasive 148 mm[Hg] MIKE AGUIRRE MD [facility] 12-03-2024 07:50-0500 Diastolic Blood Pressure Non-Invasive 72 mm[Hg] GABY REICHFIELD DO [facility] 12-03-2024 07:50-0500 Heart rate 109 /min GABY REICHFIELD DO [facility] 12-03-2024 07:50-0500 Respiratory rate 16 /min GABY REICHFIELD DO [facility] 12-03-2024 07:50-0500 Systolic Blood Pressure Non-Invasive 122 mm[Hg] GABY REICHFIELD DO [facility] 12-03-2024 06:34-0500 Diastolic Blood Pressure Non-Invasive 72 mm[Hg] GABY REICHFIELD DO [facility] 12-03-2024 06:34-0500 Heart rate 105 /min GABY REICHFIELD DO [facility] 12-03-2024 06:34-0500 Respiratory rate 20 /min GABY REICHFIELD DO [facility] 12-03-2024 06:34-0500 Systolic Blood Pressure Non-Invasive 135 mm[Hg] GABY REICHFIELD DO [facility] 12-03-2024 05:52-0500 Body temperature 97.88 [degF] GABY REICHFIELD DO [facility] 12-03-2024 05:52-0500 Diastolic Blood Pressure Non-Invasive 84 mm[Hg] GABY REICHFIELD DO [facility] 12-03-2024 05:52-0500 Heart rate 110 /min GABY REICHFIELD DO [facility] 12-03-2024 05:52-0500 Respiratory rate 20 /min GABY REICHFIELD DO [facility] 12-03-2024 05:52-0500 Systolic Blood Pressure Non-Invasive 144 mm[Hg] GABY REICHFIELD DO [facility] 11-14-2024 13:44-0500 Body temperature 98.71 [degF] [facility] Work Phone: [facility] 11-14-2024 13:44-0500 Body weight 86.3 kg [facility] Work Phone: [facility] 11-14-2024 13:44-0500 Diastolic blood pressure 72 mm[Hg] [facility] Work Phone: [facility] 11-14-2024 13:44-0500 Heart rate 138 /min [facility] Work Phone: [facility] 11-14-2024 13:44-0500 Respiratory rate 18 /min [facility] Work Phone: [facility] 11-14-2024 13:44-0500 SaO2% (BldA) [Mass fraction] 96 % [facility] Work Phone: [facility] 11-14-2024 13:44-0500 Systolic blood pressure 134 mm[Hg] [facility] Work Phone: [facility] 04-10-2024 12:08-0400 Body temperature 98.2 [degF] [facility]IRS[facility] II INSPECTOR.GERIATRIC NURSE ASSISTANT Work Phone: [facility] 04-10-2024 12:08-0400 Body weight 85.1 kg [facility] HAIRSPRING II INSPECTOR.GERIATRIC NURSE ASSISTANT Work Phone: [facility] 04-10-2024 12:08-0400 Diastolic blood pressure 62 mm[Hg] Kumar Pendlebury HAIRSPRING II INSPECTOR.GERIATRIC NURSE ASSISTANT Work Phone: [facility] 04-10-2024 12:08-0400 Heart rate 125 /min Kumar Pendlebury HAIRSPRING II INSPECTOR.GERIATRIC NURSE ASSISTANT Work Phone: [facility] 04-10-2024 12:08-0400 Respiratory rate 17 /min [facility] HAIRSPRING II INSPECTOR.GERIATRIC NURSE ASSISTANT Work Phone: [facility] 04-10-2024 12:08-0400 SaO2% (BldA) [Mass fraction] 96 % [facility] HAIRSPRING II INSPECTOR.GERIATRIC NURSE ASSISTANT Work Phone: [facility] 04-10-2024 12:08-0400 Systolic blood pressure 132 mm[Hg] [facility] HAIRSPRING II INSPECTOR.GERIATRIC NURSE ASSISTANT Work Phone: [facility] 12-20-2022 12:55-0500 Diastolic blood pressure 60 mm[Hg] [facility] 12-20-2022 12:55-0500 Heart rate 115 /min [facility] 12-20-2022 12:55-0500 Respiratory rate 20 /min [facility] 12-20-2022 12:55-0500 SaO2% (BldA) [Mass fraction] 97 % [facility] 12-20-2022 12:55-0500 Systolic blood pressure 130 mm[Hg] [facility] 12-20-2022 12:14-0500 Body temperature 97.8 [degF] [facility] 12-20-2022 10:38-0500 Body height 182.88 cm [facility] 12-20-2022 10:38-0500 Body mass index (BMI) [Ratio] 25 kg/m2 [facility] 12-20-2022 10:38-0500 Body weight 83.68 kg [facility] 12-16-2022 10:57-0500 Body temperature 98.6 [degF] Addis Athy PA-C Work Phone: [facility] 12-16-2022 10:57-0500 Body weight 82.56 kg Addis Athy PA-C Work Phone: [facility] 12-16-2022 10:57-0500 Diastolic blood pressure 64 mm[Hg] Addis Athy PA-C Work Phone: [facility] 12-16-2022 10:57-0500 Heart rate 116 /min Addis Athy PA-C Work Phone: [facility] 12-16-2022 10:57-0500 Respiratory rate 18 /min Addis Athy PA-C Work Phone: [facility] 12-16-2022 10:57-0500 SaO2% (BldA) [Mass fraction] 96 % Addis Athy PA-C Work Phone: [facility] 12-16-2022 10:57-0500 Systolic blood pressure 122 mm[Hg] Addis Athy PA-C Work Phone: [facility] 09-18-2022 17:26-0500 Body temperature 97.81 [degF] Kumar Olivares HAIRSPRING II INSPECTOR.GERIATRIC NURSE ASSISTANT Work Phone: [facility] 09-18-2022 17:26-0500 Body weight 86.18 kg Kumar Olivares HAIRSPRING II INSPECTOR.GERIATRIC NURSE ASSISTANT Work Phone: [facility] 09-18-2022 17:26-0500 Diastolic blood pressure 74 mm[Hg] Kumar Olivares HAIRSPRING II INSPECTOR.GERIATRIC NURSE ASSISTANT Work Phone: [facility] 09-18-2022 17:26-0500 Heart rate 105 /min Kumar Olivares HAIRSPRING II INSPECTOR.GERIATRIC NURSE ASSISTANT Work Phone: [facility] 09-18-2022 17:26-0500 Respiratory rate 18 /min Kumar Fleminglebury HAIRSPRING II INSPECTOR.GERIATRIC NURSE ASSISTANT Work Phone: [facility] 09-18-2022 17:26-0500 SaO2% (BldA) [Mass fraction] 97 % Kumar Elise HAIRSPRING II INSPECTOR.GERIATRIC NURSE ASSISTANT Work Phone: [facility] 09-18-2022 17:26-0500 Systolic blood pressure 122 mm[Hg] Kumar [facility] HAIRSPRING II INSPECTOR.GERIATRIC NURSE ASSISTANT Work Phone: [facility] 09-15-2022 22:27-0500 Respiratory rate 20 /min [facility] 09-15-2022 22:00-0500 Diastolic blood pressure 96 mm[Hg] [facility] 09-15-2022 22:00-0500 Heart rate 91 /min [facility] 09-15-2022 22:00-0500 SaO2% (BldA) [Mass fraction] 96 % [facility] 09-15-2022 22:00-0500 Systolic blood pressure 168 mm[Hg] [facility] 09-15-2022 20:12-0500 Body height 182.88 cm [facility] Work Phone: 09-15-2022 20:12-0500 Body mass index (BMI) [Ratio] 25.4 kg/m2 [facility] 09-15-2022 20:12-0500 Body temperature 98.4 [degF] [facility] 09-15-2022 20:12-0500 Body weight 85.27 kg [facility] 09-04-2022 11:44-0500 Diastolic Blood Pressure Non-Invasive [address] YANI DOUGHERTY MD [facility] 09-04-2022 11:44-0500 Heart rate 87 /min DR YANI DOUGHERTY MD [facility] 09-04-2022 11:44-0500 Respiratory rate 14 /min DR YANI DOUGHERTY MD [facility] 09-04-2022 11:44-0500 Systolic Blood Pressure Non-Invasive [address] YANI DOUGHERTY MD [facility] 09-04-2022 11:35-0500 Diastolic Blood Pressure Non-Invasive [address] YANI DOUGHERTY MD [facility] 09-04-2022 11:35-0500 Heart rate 84 /min DR YANI DOUGHERTY MD [facility] 09-04-2022 11:35-0500 Respiratory rate 14 /min DR YANI DOUGHERTY MD [facility] 09-04-2022 11:35-0500 Systolic Blood Pressure Non-Invasive [address] YANI DOUGHERTY MD [facility] 09-04-2022 11:30-0500 Diastolic Blood Pressure Non-Invasive [address] YANI DOUGHERTY MD [facility] 09-04-2022 11:30-0500 Heart rate 90 /min DR YANI DOUGHERTY MD [facility] 09-04-2022 11:30-0500 Respiratory rate 14 /min DR YANI DOUGHERTY MD [facility] 09-04-2022 11:30-0500 Systolic Blood Pressure Non-Invasive [address] YANI DOUGHERTY MD [facility] 09-04-2022 11:25-0500 Body temperature 97.7 [degF] DR YANI DOUGHERTY MD [facility] 09-04-2022 11:20-0500 Respiratory Rate - Anes 0 br/min DR YANI DOUGHERTY MD [facility] 09-04-2022 11:15-0500 Respiratory Rate - Anes 20 br/min DR YANI DOUGHERTY MD [facility] 09-04-2022 11:10-0500 Respiratory Rate - Anes 11 br/min DR YANI DOUGHERTY MD [facility] 09-04-2022 11:00-0500 Body weight 25.45 kg/m2 DR YANI DOUGHERTY MD [facility] 09-04-2022 10:39-0500 Body height [address] YANI DOUGHERTY MD [facility] 09-04-2022 10:39-0500 Body temperature 97.16 [degF] DR YANI DOUGHERTY MD [facility] 09-04-2022 10:39-0500 Body weight 84.[address] YANI DOUGHERTY MD [facility] 09-04-2022 10:39-0500 Heart rate 93 /min DR YANI DOUGHERTY MD [facility] 08-08-2022 09:56-0400 Body height 182.88 cm [facility] Work Phone: 08-08-2022 09:56-0400 Body mass index (BMI) [Ratio] 25.6 kg/m2 [facility] Work Phone: 08-08-2022 09:56-0400 Body temperature 96 [degF] [facility] Work Phone: 08-08-2022 09:56-0400 Body weight 85.7 kg [facility] Work Phone: 08-08-2022 09:56-0400 Diastolic blood pressure 81 mm[Hg] [facility] Work Phone: 08-08-2022 09:56-0400 Heart rate 117 /min [facility] Work Phone: 08-08-2022 09:56-0400 Respiratory rate 17 /min [facility] Work Phone: 08-08-2022 09:56-0400 SaO2% (BldA) [Mass fraction] 99 % [facility] Work Phone: 08-08-2022 09:56-0400 Systolic blood pressure 137 mm[Hg] [facility] Work Phone: 05-18-2022 08:54-0400 Diastolic Blood Pressure NBP [address] YANI DOUGHERTY MD [facility] 05-18-2022 08:54-0400 Heart rate 99 /min DR YANI DOUGHERTY MD [facility] 05-18-2022 08:54-0400 Respiratory rate 13 /min DR YANI DOUGHERTY MD [facility] 05-18-2022 08:54-0400 Systolic Blood Pressure NBP [address] YANI DOUGHERTY MD [facility] 05-18-2022 08:48-0400 Diastolic Blood Pressure NBP [address] YANI DOUGHERTY MD [facility] 05-18-2022 08:48-0400 Heart rate 96 /min DR YAIN DOUGHERTY MD [facility] 05-18-2022 08:48-0400 Respiratory rate 14 /min DR YANI DOUGHERTY MD [facility] 05-18-2022 08:48-0400 Systolic Blood Pressure NBP [address] YANI DOUGHERTY MD [facility] 05-18-2022 08:41-0400 Diastolic Blood Pressure NBP [address] YANI DOUGHERTY MD [facility] 05-18-2022 08:41-0400 Heart rate 102 /min DR YANI DOUGHERTY MD [facility] 05-18-2022 08:41-0400 Respiratory rate 17 /min DR YANI DOUGHERTY MD [facility] 05-18-2022 08:41-0400 Systolic Blood Pressure NBP [address] YANI DOUGHERTY MD [facility] 05-18-2022 08:31-0400 Body temperature 97.16 [degF] DR YANI DOUGHERTY MD [facility] 05-18-2022 07:15-0400 Body height 182.[address] YANI DOUGHERTY MD [facility] 05-18-2022 07:15-0400 Body weight 84.[address] YANI DOUGHERTY MD [facility] 05-18-2022 07:13-0400 Body height 182.[address] YANI DOUGHERTY MD [facility] 05-18-2022 07:13-0400 Body temperature 97.7 [degF] DR YANI DOUGHERTY MD [facility] 05-18-2022 07:13-0400 Body weight 84.[address] YANI DOUGHERTY MD [facility] 05-18-2022 07:13-0400 Heart rate 105 /min DR YANI DOUGHERTY MD [facility] 08-20-2021 15:36-0400 Diastolic blood pressure 67 mm[Hg] JR CLARK DO [facility] 08-20-2021 15:36-0400 Heart rate 105 /min JR CLARK DO [facility] 08-20-2021 15:36-0400 Respiratory rate 16 /min JR CLARK DO [facility] 08-20-2021 15:36-0400 Systolic blood pressure 122 mm[Hg] JR CLARK DO [facility] 08-20-2021 13:29-0400 Body height 182.9 cm JR CLARK DO [facility] 08-20-2021 13:29-0400 Body temperature 98.24 [degF] JR CLARK DO [facility] 08-20-2021 13:29-0400 Diastolic blood pressure 80 mm[Hg] JR CLARK DO [facility] 08-20-2021 13:29-0400 Heart rate 122 /min JR CLARK DO [facility] 08-20-2021 13:29-0400 Respiratory rate 16 /min JR CLARK DO [facility] 08-20-2021 13:29-0400 Systolic blood pressure 142 mm[Hg] JR CLARK DO [facility] Encounters Encounter Date Encounter Type Care Provider Facility Start: 08-14-2025 End: 08-14-2025 Emergency department patient visit [facility] Facility[facility] Start: 08-13-2025 ambulatory YOANA LION PA-C Faci lity:[facility] Start: 08-13-2025 End: 08-13-2025 Emergency department patient visit JEROME SANTANA MD [facility] Start: 08-13-2025 Encounter for other preprocedural examination Richardson [facility] Start: 08-09-2025 Non-patient / Non-visit Dr. Ortega [facility] Work Phone: Start: 08-09-2025 End: 08-10-2025 ambulatory Richardson [facility] Facility:[facility] Start: 08-09-2025 End: 08-10-2025 Evaluation and management of inpatient Dr. Alcides [facility] 3 Work Phone: Start: 08-09-2025 End: 08-10-2025 [facility] Start: 07-19-2025 Non-patient / Non-visit Dr. Francia Bhakta MD -[facility] Work Phone: Start: 07-09-2025 End: 07-09-2025 ambulatory YOANA LION PA-C Facility:[facility] Start: 07-09-2025 End: 07-09-2025 Patient encounter procedure YOANA LION PA-C [facility] Start: 04-02-2025 ambulatory Satinder Jung Facility :[facility] Start: 03-29-2025 ambulatory Jaqueline Augustine Facility:[facility] Start: 03-29-2025 Non-patient / Non-visit Dr. Jenny Augustine MD -[facility] Start: 03-29-2025 End: 03-29-2025 ambulatory [facility] Work Phone: Start: 03-29-2025 End: 03-29-2025 Patient encounter procedure Domenic Khan [employer]-C -Cardiovascular Services Work Phone: Start: 03-29-2025 End: 03-29-2025 ambulatory [facility] Facility[facility] Start: 02-19-2025 ambulatory [facility] Start: 02-19-2025 Non-patient / Non-visit Tonio Medina nd, DO -[facility] Start: 02-19-2025 End: 02-19-2025 Admission to same day surgery center Tonio Rogers DO -Endoscopy Work Phone: Start: 02-19-2025 End: 02-19-2025 ambulatory [facility] Facility:[facility] Start: 02-12-2025 End: 03-09-2025 ambulatory YOANA LION PA-C Facility:[facility] Start: 02-12-2025 End: 03-09-2025 Physical therapy management YOANA BARBOZAC [facility] Start: 02-12-2025 Encounter for other preprocedural examination Mckenna PEREIRA [facility] Start: 02-06-2025 End: 02-06-2025 Non-patient / Non-visit Dr. Raymon Bhakta MD -[facility] Work Phone: Start: 02-06-2025 End: 02-06-2025 [facility] Work Phone: Start: 02-06-2025 End: 02-06-2025 Patient encounter procedure Mckenna PEREIRA -Pulmonary Services/Neurology Work Phone: Start: 02-06-2025 End: 02-06-2025 ambulatory Yoana Lion Facility:[facility] Start: 01-19-2025 End: 01-19-2025 ambulatory [facility] Work Phone: Start: 01-19-2025 End: 01-19-2025 Patient encounter procedure Luz DAWKINS -Radiology, [facility] Work Phone: Start: 01-19-2025 End: 01-19-2025 ambulatory [facility] Facility:[facility] Start: 01-11-2025 End: 01-11-2025 ambulatory [facility] Work Phone: Start: 01-11-2025 End: 01-11-2025 Patient encounter procedure Luz DAWKINS -Nuclear Medicine, [facility] Work Phone: Start: 01-11-2025 End: 01-11-2025 [facility] Facility:[facility] Start: 01-02-2025 End: 01-02-2025 [facility] Work Phone: Start: 01-02-2025 End: 01-02-[address] Rey Wallace MD -Cat Scan, [facility] Work Phone: Start: 01-01-2025 End: 01-02-2025 [facility] Work Phone: Start: 01-01-2025 End: 01-01-2025 Patient encounter procedure Shakira Dee -Laboratory Work Phone: Start: 01-01-2025 End: 01-01-2025 ambulatory Shakira [place] Facility:[facility] Start: 12-25-2024 End: 12-25-[address] Marcos Archer MD -[facility] Work Phone: Start: 12-25-2024 End: 12-25-2024 ambulatory Marcos Archer Facility:[facility] Start: 12-18-2024 End: 12-18-2024 Patient encounter procedure Luz DAWKINS -[facility] Work Phone: Start: 12-18-2024 End: 12-18-2024 [facility] Facility:[facility] Start: 12-03-2024 End: 12-03-2024 Emergency department patient visit MIKE AGUIRRE MD [facility] Start: 12-03-2024 End: 12-03-2024 Emergency department patient visit GABY GRAY DO [facility] Start: 11-15-2024 End: 11-15-2024 Telephone encounter James PEREIRA Work Phone: [facility] Comment on above: Results Start: 11-14-2024 End: 11-14-2024 ambulatory Facility:[facility] Start: 11-14-2024 End: 11-14-2024 Patient encounter procedure [facility] Work Phone: [facility] Comment on above: Viral URI (Primary D x); Acute cough; Chest congestion; Chest tightness; Headaches Start: 09-26-2024 End: 09-26-2024 Patient encounter procedure Larisa Leal -[facility] Work Phone: Start: 09-26-2024 End: 09-26-2024 ambulatory [facility] Facility:[facility] Start: 05-12-2024 End: 05-12-2024 ambulatory PHY WO ID REFERRING Facility:B Start: 05-12-2024 End: 05-12-2024 Patient encounter procedure PHY WO ID REFERRING [facility] Start: 04-10-2024 End: 04-10-2024 [facility] [facility] Start: 04-10-2024 End: 04-10-2024 Patient encounter procedure Kumar Olivares APRN.GERIATRIC NURSE ASSISTANT Work Phone: [facility] Comment on above: Burning with urinati on (Primary Dx) Start: 12-23-2023 End: 12-23-[address] REY WALLACE MD Facility:[facility] Start: 12-23-2023 End: 12-23-[address] REY WALLACE MD [facility] Start: 06-15-2023 End: 06-15-2023 Transcribe Orders Ramu Gay HAIRSPRING II INSPECTOR-GERIATRIC NURSE ASSISTANT Work Phone: [facility] Diagnostic Radiology Comment on above: Dyspnea, unspecified type Start: 03-29-2023 ambulatory Domenic Khan [facility] ty:[facility] Start: 12-20-2022 End: 12-20-2022 [facility] Start: 12-17-2022 Telephone encounter Cornelia Elias sy HAIRSPRING II INSPECTOR.GERIATRIC NURSE ASSISTANT Work Phone: [facility] Comment on above: Results Start: 12-16-2022 End: 12-16-2022 Subsequent hospital visit by physician Xr [facility] Work Phone: Radiology Comment on above: Bronchitis [J40] Start: 12-16-2022 End: 12-16-2022 Patient encounter procedure Addis Coelho PA-C Work Phone: [facility] Comment on above: Bronchitis (Primary Dx); Acute upper respiratory infection, unspecified Start: 11-17-2022 End: 11-21-2022 Outreach Lab ISIAH LOBO DO [facility] Start: 09-21-2022 End: 09-21-2022 ambulatory [facility] Work Phone: Start: 09-21-2022 End: 09-21-2022 Patient encounter procedure [facility]-Radiology, [facility] Start: 09-18-2022 End: 09-18-2022 Patient encounter procedure Kumar Olivares HAIRSPRING II INSPECTOR.GERIATRIC NURSE ASSISTANT Work Phone: [facility] Comment on above: Acute bilateral low back pain without sciatica (Primary Dx); Glucose found in urine on examination Start: 09-15-2022 End: 09-15-2022 Emergency department patient visit [facility]Emergency Department Start: 09-04-2022 End: 09-04-[address] YANI DOUGHERTY MD [facility] Start: 08-28-2022 End: 08-28-2022 Patient encounter procedure ISIAH OLBO DO [facility] Start: 08-17-2022 End: 08-17-2022 Patient encounter procedure ISIAH LOBO DO [facility] Start: 08-08-2022 End: 08-08-2022 Emergency department patient visit [facility]gency Department Start: 05-18-2022 End: 05-18-[address] YANI DOUGHERTY MD [facility] Start: 08-20-2021 End: 08-20-2021 Emergency department patient visit JR CLARK DO [facility] Procedures Date Procedure Procedure Detail Performing Clinician Start: 08-10-2025 Estimated creatinine clearance [facility] Start: 08-09-2025 Radiologic examination knee 1/2 views [facility] Start: 07-19-2025 Methicillin resistant Staphylococcus aureus screening test [facility] Start: 03-29-2025 Cardiovascular stress test using pharmacologic stress agent [facility] Start: 01-19-2025 Videoswallow [facility] Start: 01-11-2025 Radionuclide gastric emptying study [facility] Start: 01-02-2025 CT of abdomen and pelvis without contrast [facility] Start: 01-01-2025 Prostate specific antigen measurement [facility] Comment on above: This test was performed [...] values. Start: 12-25-2024 X-ray of lumbosacral spine [facility] Start: 09-26-2024 MRI of lumbar spine [facility] Start: 06-15-2023 Radiologic exam chest 2 views Ramu Gay APRN-GERIATRIC NURSE ASSISTANT Work Phone: Start: 12-20-2022 Plain chest X-ray Start: 12-16-2022 Radiologic exam chest 2 views Addis R Ath y PA-C Work Phone: Start: 09-21-2022 Diagnostic radiography of abdomen Start: 09-18-2022 Gluc bld gluc mntr dev cleared fda spec home use [facility] Provider Start: 09-18-2022 Urnls dip stick/tablet rgnt auto w/o microscopy Chente Loaiza APRN.GERIATRIC NURSE ASSISTANT Work Phone: Start: 09-15-2022 CT of abdomen [...] DTaP,Tdap,Td Vaccine (2 - Td or Tdap) [facility] Start: 06-01-2028 Lipid panel Cholesterol [facility] Start: 2026 RSV Vaccine (1 - 1-dose 75+ series) RSV Vaccine (1 - 1-dose 75+ series) [facility] Start: 08-14-2025 [facility] Start: 08-14-2025 End: 08-14-2025 Emergency department patient visit [facility] Work Phone: Start: 08-10-2025 Patient discharge [facility] Start: 08-09-2025 End: 08-09-2025 [facility] Start: 08-09-2025 Care regimes management [facility] Start: 08-09-2025 Notification of physician [facility] Start: 08-09-2025 Application of intermittent pneumatic compression device [facility] Start: 08-09-2025 End: 08-09-2025 Following clinical pathway protocol [facility] Start: 08-09-2025 Anesth open/surg arthrs total knee arthroplasty ANESTH KNEE ARTHROPLASTY [facility] Start: 08-09-2025 Total replacement of left knee joint TOTAL KNEE ARTHROPLASTY [facility] Start: 08-09-2025 Provision of overbed trapeze [facility] Start: 08-09-2025 Ambulation therapy management [facility] Start: 08-09-2025 Application of device [facility] Start: 08-09-2025 Application of elastic bandage [facility] Start: 08-09-2025 Assessment of risk of venous thromboembolism [facility] Start: 08-09-2025 Catheterization of vein [facility] Start: 08-09-2025 Exercises [facility] Start: 08-09-2025 Incentive spirometry [facility] Start: 08-09-2025 Introduction of urinary catheter [facility] Start: 08-09-2025 Measuring intake and output [facility] Start: 08-09-2025 Neurovascular assessment [facility] Start: 08-09-2025 Patient education [facility] Start: 08-09-2025 Procedure discontinued [facility] Start: 08-09-2025 Provision of activity privileges [facility] Start: 08-09-2025 Recommendation to continue with treatment [facility] Start: 08-09-2025 Referral for physical therapy [facility] Start: 08-09-2025 Referral to occupational therapist [facility] Start: 08-09-2025 Vital signs measurements [facility] Start: 08-09-2025 Wound care [facility] Start: 08-09-2025 [facility] Start: 08-09-2025 Admission procedure [facility] Start: 08-09-2025 Consultation [facility] Start: 07-11-2025 Electrocardiographic procedure [facility] Start: 02-19-2025 Egd insert guide wire dilator passage esophagus EGD GUIDE WIRE INSERTION [facility] Start: 02-19-2025 Egd transoral biopsy single/multiple EGD BIOPSY SINGLE/MULTIPLE [facility] Start: 02-19-2025 Patient discharge [facility] Start: 10-25-2024 Advance Directive Discussion Advance Directive Discussion [facility] Start: 06-25-2024 Covid-19 Vaccine ( season) Covid-19 Vaccine (2023- season) [facility] Start: 06-25-2024 Influenza vaccination [facility] Start: 10-25-2023 Advance Directive Discussion Advance Directive Discussion [facility] Start: 10-25-2023 Behavioral Health Screening Behavioral Health Screening [facility] Start: 07-25-2023 Influenza vaccination Influenza Vaccine (#1) [facility] Start: 06-25-2023 Covid-19 Vaccine ( season) Covid-19 Vaccine () [facility] Start: 12-16-2022 End: 12-30-2022 Influenza virus A and B RNA and SARS-CoV-2 (COVID-19) N gene panel - Respiratory specimen by ISABEL with probe detection [facility] Work Phone: Comment on above: Expected: 12/16/2022, Expires: Start: 10-25-2022 ADVANCE DIRECTIVE DISCUSSION ADVANCE DIRECTIVE DISCUSSION [facility] Start: 10-25-2022 DEPRESSION ASSESSMENT DEPRESSION ASSESSMENT [facility] Start: 09-15-2022 [facility] Start: 07-04-2022 Pneumococcal vaccination Pneumococcal Vaccine(s) (65+ yrs) (2 - PCV) [facility] Start: 10-25-2021 ADVANCE DIRECTIVE DISCUSSION ADVANCE DIRECTIVE DISCUSSION [facility] Start: 10-25-2021 DEPRESSION ASSESSMENT DEPRESSION ASSESSMENT [facility] Start: 2016 Pneumococcal vaccination Pneumococcal Vaccine(s) (65+ yrs) (1 - PCV) [facility] Start: 2011 RSV Vaccine (1 - 1-dose 60+ series) RSV Vaccine (1 - 1-dose 60+ series) [facility] Start: 2001 Shingles (RZV) Vaccine (1 of 2) Shingles (RZV) Vaccine (1 of 2) [facility] Start: 2001 SHINGRIX VACCINE (1 of 2) SHINGRIX VACCINE (1 of 2) [facility] Start: 1996 COLOGUARD (FIT-DNA) COLOGUARD (FIT-DNA) [facility] Start: 1996 Colonoscopy COLONOSCOPY [facility] Start: 1996 COLORECTAL CANCER SCREENING COLORECTAL CANCER SCREENING [facility] Start: [address] COLONOGRAPHY [facility] Start: 1996 DIABETES SCREEN DIABETES SCREEN [facility] Start: 1996 Diabetes Screening Diabetes Screening [facility] Start: 1996 FECAL OCCULT BLOOD FECAL OCCULT BLOOD [facility] Start: 1996 Screening for malignant neoplasm of colon [facility] Start: 1996 SIGMOIDOSCOPY SIGMOIDOSCOPY [facility] Start: 1986 Lipid panel [facility] Start: 1986 LIPID SCREEN LIPID SCREEN [facility] Start: 1970 Tetanus vaccination Tetanus (Td or Tdap) Booster [facility] Start: 1970 Urine microalbumin profile DTAP,TDAP,TD (1 - Tdap) [facility] Start: 1969 Annual PCP Team Chronic Disease Visit Annual PCP Team Chronic Disease Visit [facility] Start: 1969 Anxiety Screening Anxiety Screening [facility] Start: 1969 BP Controlled (<130/80) BP Controlled (<130/80) [facility] Start: 1969 Creatinine measurement Serum Creatinine [facility] Start: 1969 Depression Screening Depression Screening [facility] Start: 1969 Hepatitis B surface antibody level LDL Cholesterol [facility] Start: 1969 HEPATITIS C SCREENING HEPATITIS C SCREENING [facility] Start: 1969 Hepatitis C screening [facility] Start: 1969 Tetanus + diphtheria + acellular pertussis vaccine (product) Tdap Booster [facility] Start: 1961 Diabetic foot examination Diabetic Foot Exam [facility] Start: 1961 Glaucoma screening Dilated Retinal Exam [facility] Start: 1961 Hepatitis B screening Urine Albumin:Creatinine Ratio [facility] Start: 1957 PNEUMOCOCCAL: 65+ (1 - PCV) PNEUMOCOCCAL: 65+ (1 - PCV) [facility] Start: 1956 Hemoglobin A1c measurement HbA1C [facility] Start: 03-28-1952 COVID-19 VACCINE (#1) COVID-19 VACCINE (#1) [facility] Start: 1951 ABDOMINAL AORTIC ANEURYSM SCREENING ABDOMINAL AORTIC ANEURYSM SCREENING [facility] Start: 1950 Abdominal aortic aneurysm screening Abdominal Aortic Aneurysm Screening [facility] Start: 1950 Screening for malignant neoplasm of colon Colonoscopy [facility] COVID & INFLUENZA A/ B & RSV PCR, ROUTINE COVID & INFLUENZA A/B & RSV PCR, ROUTINE Microbiology Routine Acute cough Chest congestion Chest tightness Headaches 11/14/2024 4:12 PM EST [facility] Work Phone: Glucose [Mass/volume ] in Serum or Plasma GLUCOSE, BLOOD (POC) Lab Routine Glucose found in urine on examination Ordered: 09/18/2022 [facility] Work Phone: Comment on above: Ordered: 09/18/2022 Patient Education [facility] Work Phone: Patient referral [facility] Work Phone: Radionuclide gastric emptying study [facility] UA DIP, URINE (POC) UA DIP, URIN E (POC) Lab Routine Burning with urination Ordered: 04/10/2024 [facility] Work Phone: Comment on above: Ordered: 04/10/2024 [facility] Immunizations Immunization Date Immunization Notes Care Provider Gald[facility] 08-10-2025 influenza, high dose seasonal, preservative-free [facility] 08-14-2022 influenza, high dose seasonal, preservative-free ISIAH LOBO DO [facility] 08-14-2022 influenza virus vacc ine, unspecified formulation Phe 1 [facility] 11-04-2021 influenza, high dose seasonal, preservative-free; Translations: [Fluad Quadrivalent PF ] DR YANI DOUGHERTY MD [facility] 07-04-2021 pneumococcal polysaccharide vaccine, 23 valent; Translations: [Pneumovax 23] JR CLARK DO [facility] 09-05-2020 influenza virus vacc ine, unspecified formulation JR CLARK DO [facility] 09-05-2020 influenza, injectabl e, quadrivalent, preservative free [facility] 09-05-2020 influenza, seasonal, injectable [facility] Payers Date Payer Category Payer Self-pay [id number] 2023 Unknown [id number] 2022 Self-pay [id number] 2016 Medicare [id number] 2016 Private Health Insurance [id number] 2016 Medicare [id number] 2016 Private Health Insurance [id number] 1950 Unknown [id number] 2.16.8 40.1.451287.3.579.2.627 1950 Unknown [id number] 2.16.8 40.1.056696.3.579.2.627 1950 Unknown [id number] 2.16.8 40.1.661045.3.579.2.627 1950 Unknown [id number] 2.16. 840.1.718542.3.579.2.627 1950 Unknown [id number] 2.16. 840.1.778392.3.579.2.627 1950 Unknown [id number] 2.16. 840.1.556035.3.579.2.627 1950 Unknown [id number] 2.16.8 40.1.478650.3.579.2.627 1950 Unknown [id number] 2.16.8 40.1.414653.3.579.2.627 Unknown [id number] 2.16.8 40.1.955851.3.579.2.630 Unknown [id number] 2.16.8 40.1.805629.3.579.2.462 Unknown [id number] 2.16.8 40.1.967673.3.579.2.462 Unknown [id number] 2.16.8 40.1.762929.3.579.2.462 Unknown [id number] 2.16.8 40.1.705573.3.579.2.462 Unknown [id number] 2.16.8 40.1.765096.3.579.2.462 Unknown [id number] 2.16.8 40.1.727470.3.579.2.462 Unknown [id number] 2.16.8 40.1.324365.3.579.2.462 Unknown [id number] 2.16.8 40.1.996048.3.579.2.462 Unknown [id number] 2.16.8 40.1.591394.3.579.2.462 Unknown [id number] 2.16.8 40.1.925543.3.579.2.462 Unknown [id number] 2.16.8 40.1.384335.3.579.2.462 Unknown [id number] 2.16.8 40.1.416713.3.579.2.462 Unknown [id number] 2.16.8 40.1.193897.3.579.2.462 Unknown [id number] 2.16.8 40.1.080741.3.579.2.462 Unknown [id number] 2.16.8 40.1.088536.3.579.2.462 Unknown [id number] 2.16.8 40.1.197017.3.579.2.462 Unknown [id number] 2.16.8 40.1.721677.3.579.2.462 Unknown [id number] 2.16.8 40.1.325426.3.579.2.462 Social History Date Type Detail Facility Start: 05-29-2020 Heavy tobacco smoker (finding) [facility] Start: 1950 Sex Assigned At Male A [facility] Start: 08-08-2022 End: 12-20-2022 Tobacco smoking status MIIS Unknown if ever smoked [facility] Start: 08-08-2022 Rare [facility] Start: 09-04-2020 None [facility] Start: 09-04-2020 Spouse/ Signif icant Other [facility] Start: 09-04-2020 Cigarettes [facility] Start: 09-18-2022 End: 08-14-2025 Tobacco smoking status MIIS Smokes tobacco daily [facility] Start: 09-18-2022 Tobacco use and exposure Smoke less tobacco non-user [facility] Start: 1950 Sex Assigned At Not on file [facility] Start: 09-08-2022 End: 09-18-2022 Exposure to SARS-CoV-2 (event) Not sure [facility] Start: 10-04-2020 End: 04-10-2024 Gender identity Not on file [facility] Start: 10-04-2020 End: 04-10-2024 History of Social function [facility] National Score (1-10 0), lower number is lower risk Not on file [facility] Sexual Orientation [facility] Start: 09-19-2019 End: 02-10-2025 Sex Male (finding) [facility] Start: 08-13-2025 Not applicable (qualifier value) [facility] Medical Equipment Procedure Code Equipment Code Equipment Origin al Text Equipment Identifier Dates ([id number]) Coated knee femu r prosthesis [id number] FDA Start: 08-09-2025 ([id number]) Coated knee tibi a prosthesis ()[id number] FDA Start: 08-09-2025 ([id number]) Tibial insert ()[id number] FDA Start: 08-09-2025 Goals Date Patient Goal Desired Activity /State Functional Status Date Assessment Result Facility 08-13-2025 Functional Status ID band on, Allergy Band on, Call device within reach, Bed in low position, Wheels locked, Upper/Half-Length side-rails up, Bedside Cart Locked, Safety level maintained [facility] 08-13-2025 [facility] 08-10-2025 Functional status Ambulates [facility] Work Phone: 12-03-2024 Functional Status Room check per formed, Cook Fish Eggs at bedside [facility] 12-03-2024 Functional Status Independent [facility] 12-03-2024 Functional Status Standard Safet y ID band on, Allergy Band on, Call device within reach, Bed in low position, Wheels locked, Upper/Half-Length side-rails up, Phone within reach, personal items within reach, Bedside Cart Locked, Visitor at bedside [facility] 09-04-2022 Functional Status Maintained [facility] 05-18-2022 Functional Status Awake [facility] 05-18-2022 Functional Status Maintained [facility] Mental Status Date Assessment Result Facility 08-13-2025 Mental Status Orientation Oriented x 4 [facility] 08-10-2025 Cognitive function Level Of Consciousness Awake [facility] Work Phone: 08-10-2025 Cognitive function Voice/Name [facility] Work Phone: 02-19-2025 Cognitive function Voice/Name [facility] Work Phone: 12-03-2024 Mental Status Orientation Oriented x 4 [facility] 12-03-2024 Mental Status Oriented x 4 [facility] 12-03-2024 Mental Status [facility] 09-04-2022 Mental Status Oriented x 4 [facility] 08-08-2022 Cognitive function Level Of Cons ciousness Awake;Alert;Appropriate;Follow s Commands [facility] Work Phone: 05-18-2022 Mental Status Oriented x 4 [facility] 05-18-2022 Mental Status [facility] Clinical Notes 08-20-2021 to 08-15-2025 Note Date & Type Note Facility 08-15-2025 Discharge summary [facility] 08-14-2025 Discharge summary Note Date/Time August 15, 2025 12:29am [facility] Medical Records Department [address] [place] [address] Emergency Department Summary 08/14/25 MR#: [id number] Acct: [id number] Name: AGAPITO MESSER Rep #:[id number] : 1950 74 From: Win Smiley DO PCP: [facility] Status:DEP ER Location: ED HPI History of Present Illness Chief Complaint: Back Informant: patient and spouse/S.O. Narrative Narrative: Patient is a 74-year-old male with past medical history of chronic back pain whotakes oral morphine for this and has done this over the past 7 years. He recently had his right knee replaced. Secondary to the surgery he was prescribed oxycodone. He states he was taking this but then began having side effects of headache nausea vomiting and after a few doses also felt like he was having tongue and throat swelling. He was seen at an outside hospital and advised to not take the medication any longer. He states he is trying just using Tylenol on top of his morphine but the pain has been uncontrollable to thepoint where he cannot sleep. He denies any chest pain or shortness of breath fevers or chills but states because of the intractable pain he presents for evaluation Regarding his back pain he denies any loss of bowel or bladder control or IV drug use. He states has been no recent back procedures such as injections or surgery. [facility] Medical History (Updated 08/15/25 @ 06:[address] Win Smiley, DO) Wears dentures Wears glasses Anxiety Depression History of steroid therapy Ambulates with cane History of renal disease Fatty liver Migraine headache Dietary restriction Gastric reflux Smoker History of echocardiogram History of stress test Traumatic amputation of ear Finger amputation, traumatic Enlarged prostate Back pain Arthritis Kidney stones Home Medications ?Medication ?Instructions ?Recorded ?Last Taken ?Type alfuzosin 10 mg tablet,extended 10 mg PO DAILY KIDNEYS 08/05/17 02/18/25 History release 24 hr gabapentin 300 mg capsule 300 mg PO BIDCM NERVE PAIN 1 02/18/25 History glimepiride 4 mg tablet 4 mg PO DAILY DIABETES 08/0502/18/25 History meloxicam 15 mg tablet 15 mg PO DAILY PAIN 08/05/17 02/15/25 History fish oil-dha-epa 1,200 mg-144 1 cap PO DAILY SUPPLEMEN T 09/04/20 02/15/25 History mg-216 mg capsule morphine 15 mg tablet,extended 15 mg PO TID PAIN 09/0402/18/25 History release ondansetron 4 mg disintegrating 4 mg PO Q8H PRN PRN Na usea #10 tabs 09/15/22 Unknown Rx tablet cholecalciferol (vitamin D3) 50 50 mcg PO QDAY SUPPLEM ENT 12/18/24 02/18/25 History mcg (2,000 unit) capsule empagliflozin 25 mg tablet 25 mg PO QDAY DIABETES 11/2602/15/25 History hydroxyzine pamoate 25 mg capsule 25 mg PO QHS PRN anx iety 12/18/24 Unknown History docusate sodium 100 mg capsule 100 mg PO BID STOOL SOF TENER 02/14/25 02/18/25 History (Colace) psyllium husk 3.4 gram/5.4 gram 1 tbsp PO DAILY SUPPLE MENT 02/14/25 02/18/25 History oral powder (Metamucil) denosumab 60 mg/mL subcutaneous 60 mg subcut QMONTH SAVANNAH NE DENSITY 07/11/25 Unknown History syringe (Prolia) mecobalamin (vitamin B12) 2,500 2,500 mcg PO DAILY SUP PLEMENT 07/11/25 Unknown History mcg chewable tablet pantoprazole 40 mg tablet,delayed 40 mg PO DAILY GERD 07/11/25 Unknown History release acetaminophen 500 mg tablet 1,000 mg (2 x 500 mg) PO Q 8H #180 08/10/25 Unknown Rx tabs aspirin 81 mg chewable tablet 81 mg PO BID 4 weeks #56 tabs 08/10/25 Unknown Rx ondansetron 4 mg disintegrating 4 mg PO TID PRN nausea and 08/14/25 Unknown Rx tablet vomiting #21 tabs tramadol 100 mg tablet 100 mg PO Q6H PRN pain 5 day s #20 08/14/25 Unknown Rx tabs Allergy/AdvReac Type Severity Reaction Status Date / Time oxycodone Allergy Mild Nausea/Vom/ Verified 08/14/25 20:06 Diarrhea hydrocodone (From Vicodin) Allergy Rash Verified 08/14/25 20:06 celecoxib (From Celebrex) AdvReac goofy Verified 08/14/25 20:06 Surgical History (Updated 08/14/25 @ 21:41 by Itzel Begum) History of left knee replacement History of esophagogastroduodenoscopy (EGD) History of rotator cuff surgery H/O lithotripsy Social History Smoking Status: Current every day smoker tobacco type: cigarettes alcohol intake: never substance use type: does not use ROS ROS ED Constitutional Constitutional ED: Denies chills or fever(s) Eyes Eyes: Denies blurry vision or change in vision ENT ENT ED: Denies sore throat Cardiovascular Cardiovascular: Denies chest pain, palpitations or racing heartbeat Respiratory/Chest Respiratory/Chest: Denies cough or dyspnea Gastrointestinal Gastrointestinal: Denies abdominal pain, diarrhea, nausea or vomiting Genitourinary Genitourinary ED: Denies dysuria Musculoskeletal Musculoskeletal: Reports back pain and other Details: Positive left knee pain Integumentary Denies rash Neurologic Neurologic: Denies headache(s) Hematologic/Lymphatic Hematologic/Lymphatic: Denies easy bleeding or easy bruising EXAM Physical Exam Const Vital Signs: 08/14/25 20:06 08/14/25 21:39 08/14/25 22:00 Temperature 97 F L 97 F L 97.8 F Temperature Source Temporal Oral Oral Pulse Rate 143 H 126 H 118 H Respiratory Rate 24 H 18 18 Blood Pressure 128/108 H 124/79 H 137/65 H Blood Pressure Mean 114 94 89 Pulse Ox 100 100 98 Oxygen Delivery Method Room Air Room Air 08/14/25 22:55 Temperature 97.6 F L Temperature Source Pulse Rate 116 H Respiratory Rate 18 Blood Pressure 144/72 H Blood Pressure Mean 96 Pulse Ox 100 Oxygen Delivery Method Positive well nourished and well developed General Appearance ED: well developed HEENT HEENT Narrative: Normocephalic atraumatic Eyes PERRL and EOMs intact bilaterally General Eye ED: Negative for scleral icterus Neck supple Neck Narrative: No nuchal rigidity or meningeal signs Resp normal respiratory effort Resp Narrative: Breath sounds are diminished throughout with faint expiratory wheeze and bilateral rhonchi in the bases consistent with history of smoking but no signs ofrespiratory distress Cardio regular rhythm Rate: tachycardic and other Other Details: Tachycardic rate with regular rhythm Radial and carotid pulses are equal and symmetric Extremity Extremity Narrative: Surgical incision to the anterior aspect of the left knee that is clean dry and intact. There is soft tissue swelling and faint erythema and warmth consistent with recent knee replacement. No lymphangitic streaking. No obvious abscess formation. No purulent discharge or drainage. No crepitance palpated. Neuro oriented x3 and CN's II-XII intact bilaterally Sensorium / Orientation: alert Psych Mood & Affect: anxious Skin Skin Narrative: Postoperative wound to the left knee as documented above without secondary findings to suggest infection MDM MDM MDM Narrative Medical decision making narrative: Patient arrived to the ER hypertensive and tachycardic but states this is to hispersistent pain. We discussed potential CTA of the chest to rule out PE becauseof his tachycardia with his recent knee replacement surgery. The patient denieschest pain or pleuritic chest pain or shortness of breath and he states he really feels that his vitals are elevated because of his pain. We discussed that as he has allergies to Vicodin and oxycodone that only other prescription for pain medication could be fentanyl patches or tramadol. The patient states he has had tramadol in the past and you prefer to try this. I understand that he has chronic pain and takes chronic pain medication in the oral morphine for his back but with his recent surgery and need for improved pain control from therecent intervention I do feel that it is proper and appropriate to place him on tramadol. The patient was given IM Dilaudid as well as oral Valium prior to discharge and reported feeling much better. I have low concern for postoperative infection based on his history and exam and as the back pain is chronic and he does not report loss of bowel or bladder control I have low concern for cauda equina or epidural abscess and also without report of recent back procedure or injection I have low concern for discitis or osteomyelitis. Therefore I will treat the patient for his chronic pain and he is otherwise safefor discharge History & Record Review Discussion w/independent historian: Patient and Significant other Discharge Plan Triage Chief Complaint: Back ED Provider: Win Smiley Dx/Rx/DC Orders Clinical Impression: Post-operative pain, Non-insulin dependent diabetes mellitus, Chronic back pain, Tobacco use Instructions: Pain Management After Surgery Prescriptions: New ondansetron 4 mg tablet,disintegrating 4 mg PO TID PRN (Reason: nausea and vomiting) Qty: 21 1RF tramadol 100 mg tablet 100 mg PO Q6H PRN (Reason: pain) 5 Days Qty: 20 0RF No Action hydroxyzine pamoate 25 mg capsule 25 mg PO QHS PRN (Reason: anxiety) empagliflozin 25 mg tablet 25 mg PO QDAY cholecalciferol (vitamin D3) 50 mcg (2,000 unit) capsule 50 mcg PO QDAY meloxicam 15 MG tablet 15 mg PO DAILY glimepiride 4 MG tablet 4 mg PO DAILY gabapentin 300 MG capsule 300 mg PO BIDCM alfuzosin 10 MG tablet extended release 24 hr 10 mg PO DAILY fish oil-dha-epa 1 EACH capsule 1 cap PO DAILY morphine 15 MG tablet extended release 15 mg PO TID ondansetron 4 MG tablet 4 mg PO Q8H PRN PRN (Reason: Nausea) Qty: 10 0RF docusate sodium [Colace] 100 mg capsule 100 mg PO BID Metamucil 3.4 gram/5.4 gram powder 1 tbsp PO DAILY Rx Instructions: mix into at least 8 oz of water or juice before administering mecobalamin (vitamin B12) 2,500 mcg tablet,chewable 2,500 mcg PO DAILY Prolia 60 mg/mL syringe 60 mg subcut QMONTH Rx Instructions: every 6 month infusion pantoprazole 40 mg tablet,delayed release (DR/EC) 40 mg PO DAILY acetaminophen 500 mg Tablet 1,000 mg PO Q8H Qty: 180 0RF aspirin 81 mg Tablet,Chewable 81 mg PO BID 28 Days Qty: 56 0RF Primary Care Provider: [facility] Referrals: Harshad Lima DO [Med Staff - Active Staff, Orthopedics] [facility] [Primary Care Provider, None] Activity Restrictions/Additional Instructions: Please continue all of your other medication as directed by your doctor. However as you cannot take the oxycodone secondary to adverse reaction begin taking the Ultram/tramadol 4 times a day on top of your oral morphine for improved pain control from your recent knee replacement. Continue to ice and stretch the knee and take Tylenol as well as use topical treatments such as lidocaine patches or topical Voltaren. Follow-up with your pain management doctor and orthopedic surgeon for repeat evaluation and return to the ER should you have any further concerns Print Language: Citizen Of [place] Disposition Disposition: Home, Self Care Discharge Date/Time: 08/14/25 23:29 What to do if you have Problems For any increased pain, shortness of breath, bleeding, nausea or vomiting, chestpain, or any unexpected problems, contact your Primary Care Provider. Call [facility] ([phone]) or report to the closest Emergency Room. Call 911 if necessary. 08/15/25625 <Electronically signed by Win Smiley DO> Cosigner Signature (if applicable): CC: [facility] ~ Signed [facility] Work Phone: [phone] [phone] Hospital Discharge instructions Patient Education 08/13/2025 12:23:51 Drug Reaction, Other Reaction to Medicine (Other Type) You are having a reaction to a medicine you have taken. This may not be the same as an allergic reaction. It is an undesired, unfavorable reaction, or a side effect of a medicine. This can cause a variety of symptoms, including: Dizziness or headache Rash Flushing or hot sensation Nausea, vomiting, or stomach pain Diarrhea or constipation Trouble breathing High or low blood pressure A reaction can be an upset stomach from something like aspirin or ibuprofen, feeling faint after taking a blood pressure medicine, feeling anxious, and many other things. Symptoms of a medicine reaction can range from very mild to very severe. In most cases, the reaction goes away within 1 to 12 hours. But it will probably occur again if youtake this same medicine. Your healthcare provider will advise you whether to change how much, when,or how often you take this medicine. He or she may also advise you to discontinue this medicine or switch to another one. Home care Another medicine may be recommended to reduce your symptoms until the medicine s effect wears off. Follow your healthcare provider s advice. When the medicine s effect has worn off, there should be no further problem as long as you don't take the same medicine again. Ask your healthcare provider if you should also avoid similar medicines. Write down the informationso you will remember it. Make certain the medicine reaction is documented in your medical record. Follow-up care Follow up with your healthcare provider, or as advised if your symptoms are not better within 24 hours. When to seek medical advice Call your healthcare provider right away if any of these occur. New symptoms that concern you Worsening of your current symptoms, including rash or facial swelling Symptoms that are not relieved by the treatment advised Fever of 100.4 F (38 C) or higher, or as advised by your healthcare provider Call 911 Call 911 if any of these occur: Trouble breathing or swallowing, or wheezing Hoarse voice or trouble speaking Confusion Extreme drowsiness or trouble awakening Fainting or loss of consciousness Rapid heart rate or slow heart rate Very low or very high blood pressure Vomiting blood, or large amounts of blood in stool Seizure [id number] [employer]. [address] [place] [address]. All rights reserved. This information is not intended as a substitute for professional medical care. Always follow yourhealthcare professional's instructions. Follow Up Care 08/13/2025 11:33:13 With:[facility] Address: [address] [place], [place] [address] [address] [facility] (1) When:2-4 days Comments:Schedule appointment for close follow-up.May continue current medications but oxycodone may cause similar symptoms that brought you to the ED today.Return to the ED if symptoms worsen. [facility] 10-20-2025 Emergency department Discharge summary Discharge Instructions Thank you for allowing [facility] to assist you with your healthcare needs. The following is importantdischarge information regarding your hospital visit. Diagnosis from Today's Visit Medication reaction What to Do Next Instructions from Your Care Team No qualifying data available. Post Acute Orders No qualifying data available. You Need to Schedule the Following Appointments [facility] When:Within 2-4 days Where:[place] [address] [facility] (1) Additional Information: Schedule appointment for close follow-up. May continue current medications but oxycodone may cause similar symptoms that brought you to the ED today. Return to the ED if symptoms worsen. Allergies CeleBREX Abdominal pain [place] Hives Vicodin Wellbutrin Short of breath on [...] tab(s) by mouth Once a day Unchanged pantoprazole (pantoprazole 40 mg oral enteric coated tablet) 1 tab(s) by mouth Two (2) times a day Please take this list to your next doctor s visit. Bring all medications you take, including over the counter medications, herbals and other supplements with you to your doctor s visit. Patients and families are reminded to discard old lists and to update any records with all medication providers or retail pharmacies. Education Materials Reaction to Medicine (Other Type) You are having a reaction to a medicine you have taken. This may not be the same as an allergic reaction. It is an undesired, unfavorable reaction, or a side effect of a medicine. This can cause a variety of symptoms, including: Dizziness or headache Rash Flushing or hot sensation Nausea, vomiting, or stomach pain Diarrhea or constipation Trouble breathing High or low blood pressure A reaction can be an upset stomach from something like aspirin or ibuprofen, feeling faint after taking a blood pressure medicine, feeling anxious, and many other things. Symptoms of a medicine reaction can range from very mild to very severe. In most cases, the reaction goes away within 1 to 12 hours. But it will probably occur again if youtake this same medicine. Your healthcare provider will advise you whether to change how much, when,or how often you take this medicine. He or she may also advise you to discontinue this medicine or switch to another one. Home care Another medicine may be recommended to reduce your symptoms until the medicine s effect wears off. Follow your healthcare provider s advice. When the medicine s effect has worn off, there should be no further problem as long as you don't take the same medicine again. Ask your healthcare provider if you should also avoid similar medicines. Write down the informationso you will remember it. Make certain the medicine reaction is documented in your medical record. Follow-up care Follow up with your healthcare provider, or as advised if your symptoms are not better within 24 hours. When to seek medical advice Call your healthcare provider right away if any of these occur. New symptoms that concern you Worsening of your current symptoms, including rash or facial swelling Symptoms that are not relieved by the treatment advised Fever of 100.4 F (38 C) or higher, or as advised by your healthcare provider Call 911 Call 911 if any of these occur: Trouble breathing or swallowing, or wheezing Hoarse voice or trouble speaking Confusion Extreme drowsiness or trouble awakening Fainting or loss of consciousness Rapid heart rate or slow heart rate Very low or very high blood pressure Vomiting blood, or large amounts of blood in stool Seizure [id number] [employer]. [address] [place] [address]. All rights reserved. This information is not intended as a substitute for professional medical care. Always follow yourhealthcare professional's instructions. Additional Information VACCINATE! IT SAVES LIVES! Members of the community who have not yet received the COVID-19 vaccine and would like to receive it can visit one of [facility] vaccine clinics. There are many vaccine clinic locations within the [facility]. For locations and available times, please visit www.gettheshot.coronavirus.[place].gov/. It is important to note that some COVID mobile vaccine clinics are held outdoors and may be canceled in rainy or stormy conditions. To learn more about pediatric vaccinations (ages 5-11), we invite you to visit the [facility] webpage. https://www.[facility].org/pages/4881-Uqktw-Vcfqyrdtxkg-Mnyzynyijf-Sblfn-Qhl stions.htmlTo learn more about the COVID-19 vaccine, we invite you to visit the CDC website for a list of frequently asked questions. https://www.cdc.gov/coronavirus/2019-ncov/vaccines/faq.html [facility] Patient Portal Access Instructions: Stay connected with your healthcare team and access your personal medical information anytime with the [facility] Patient Portal. If you would like a full copy of your medical records please contact the [facility] Medical Records Department Wednesday through Wednesday between 8a.m. and 4:30p.m. Please follow the directions below to access the portal: 1.Access the email account you provided upon registration to the [facility].2.Look for an invitation email from [facility].3.Open the email and access the invitation link: Accept Invitation to [facility]4.Fill in the required morris to create your account. To access your account, visit [employer] or scan the [employer] code above. Click the [facility] Access Patient Portal and then log in with the username and password that you created in the steps above. You can then view a summary of results, a summary of your visits, and the ability to download your summaries to your computer or send the information securely to a physician. Re member that your healthcare information is confidential, so carefully consider who you will allow to register on the [facility] Patient Portal for access to your information. You can also access the [facility] Patient Portal on the [employer] Grid. Simply click on Health Records under Health Data and then click on the [employer] logo. HOW TO SAFELY DISPOSE OF PRESCRIPTION [...] Call your local pharmacy or go to [email or web address] to find one close to you.3.Make use of household items: Use cat litter or old coffee grounds to dispose medications if other options arenot available. Mix your drugs with these household products, seal them in an airtight container andthrow it into the garbage. Call [place] [facility]: [phone] to be sure your drugs can be [...] a CHART COPY Signatures Patient Education Materials Drug Reaction, Other Medication Leaflets My discharge plan and instructions have been reviewed and explained to me and I,AGAPITO MESSER understand my current condition and have read and understand these discharge instructions. I have received a written copy of the plan/instructions. If I have questions, I am aware that I should contactmy doctor. 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 Cardiomediastinal silhouette is within normal limits. Aortic arch atherosclerosis. No edema. Left lower lobe infiltrates. No pleural effusion. No pneumothorax. No acute osseous abnormality. Right humeral head suture anchors. IMPRESSION: Left lower lobe infiltrates, atelectasis and or consolidation. Interpreted by: Jeremiah Bradshaw Preliminary Report By: Jeremiah Bradshaw Electronically signed By Jeremiah Bradshaw Dictated Date: 08/13/2025 12:01:44 PM Prelim Date: 08/13/2025 12:04:42 PM Sign Date: 08/13/2025 12:04:42 PM Ordering Provider: JEROME SANTANA [facility]10-20-2025 Note* Exam Date Time Procedure Performing Provider Status 08/13/25 11:[address] Head or Brain w/o Contrast NADER NARANJO MD; Auth (Verified) [id number] ORIGINAL HISTORY: Weakness COMPARISON: No TECHNIQUE: Routine noncontrast head CT, with sagittal and coronal reconstructions. This exam was performed according to our departmental dose optimization program, and includes the following measures where applicable: automated exposure control, adjustment of the mAs and/or kVp according to patient size and/or exam, and an iterative reconstruction algorithm. FINDINGS: The ventricles and sulci are mildly enlarged. There are no abnormal intra or extra-axial fluid collections. There is mild irregular decreased attenuation in the cerebral white matter. Savage-white matter differentiation is maintained. The calvaria and the bones of the base of the skull are intact. IMPRESSION: Mild volume loss and small vessel ischemic changes. Interpreted by: Nader Naranjo MD Preliminary Report By: Nader Naranjo MD Electronically signed By Nader Naranjo MD Dictated Date: 08/13/2025 12:00:21 PM Prelim Date: 08/13/2025 12:01:27 PM Sign Date: 08/13/2025 12:01:27 PM Ordering Provider: JEROME SANTANA [facility]10-20-2025 Note* Exam Date Time Procedure Performing Provider Status 08/13/25 11:39 AM EKG [ED A[facility]] - CV JEROME SANTANA MD; Auth (Verified) ECG Final Report Sinus tachycardia Low voltage, extremity and precordial leads Abnormal R-wave progression, early transition Baseline wander in lead(s) V2,V4 Electronic Signature: JEROME SANTANA MD 08/13/2025 11:42:10 [facility]10-17-2025 Discharge summary Author Yoana Lion [facility] Note Date/Time August 10, 2025 1 2:13pm [facility] Medical Records Department [address] [place] [address] Discharge Summary 08/10/25 1149 MR#: [id number] Acct: [id number] Name: AGAPITO MESSER Rep #:[id number] : 1950 74 From: Yoana PEREIRA PCP: [facility] Status:ADM JULIETH Location: [facility] [id number] Providers Date of Admission: 08/09/25 Date of Discharge: 08/10/25 Primary Care Physician: [facility] Consultations 08/09/25 12:04 Consult: Hospitalist Routine Consulting Provider: Richardson Jean Baptiste Reason for Consult: total knee post op medical management EMERGENT Consult: No MD Notified: Yes Date Notified: 08/09/25 Time Notified: 14:36 Method of Notification: Text Reason For Visit: Total Knee Replacement Robotic Arm Radha Diagnosis Discharge Diagnosis (1) Status post left knee replacement: Status: Acute Code(s): Z96.652 - Presence of left artificial knee joint Plan: 1. Will continue PT today. Weightbearing as tolerated 2. plan for discharge this afternoon following PT 3. Patient will follow up for post op appointment in 2 weeks as previously scheduled 4. Patient has outpatient PT appointment Wednesday as previously scheduled 5. WBC 20.6 acute reactive leukocytosis: secondary to pre operative decadron. noacute systemic signs of infection. will monitor, and likely self resolve. 6. H/H 14.3/42.4: post operavtive anemia secondary to acute blood loss intraoperatively. Patient is asymptomatic at this time. No intraoperative complications. will continue to monitor. no acute interventions. 7. DVT prophylaxis : Aspirin 81 mg twice daily x 4 weeks 8. Pain control: patient instructed to take tylenol 500mg 2 tablets TID. and oxycodone 1-2 tablets every 4-6 hours only as needed for pain control. 9. Patient also given a prescription of meloxicam, Pepcid, senna 10. ok to remove post op dressing. post op day 5 Medications at Discharge Home Medications alfuzosin 10 mg tablet,extended release 24 hr 10 mg PO DAILY KIDNEYS 08/05/17 gabapentin 300 mg capsule 300 mg PO BIDCM NERVE PAIN 08/05/17 glimepiride 4 mg tablet 4 mg PO DAILY DIABETES 08/05/17 meloxicam 15 mg tablet 15 mg PO DAILY PAIN 08/05/17 fish oil-dha-epa 1,200 mg-144 mg-216 mg capsule 1 cap PO DAILY SUPPLEMENT 09/04/20 morphine 15 mg tablet,extended release 15 mg PO TID PAIN 09/04/20 ondansetron 4 mg disintegrating tablet 4 mg PO Q8H PRN PRN Nausea #10 tabs 09/15/22 aspirin 81 mg tablet,delayed release (Adult Aspirin Regimen) 81 mg PO QDAY [facility] 12/18/24 Held on 08/10/25. Instructions: Resume on 09/07/25. cholecalciferol (vitamin D3) 50 mcg (2,000 unit) capsule 50 mcg PO QDAY SUPPLEMENT 12/18/24 empagliflozin 25 mg tablet 25 mg PO QDAY DIABETES 12/18/24 hydroxyzine pamoate 25 mg capsule 25 mg PO QDAY PRN anxiety 12/18/24 docusate sodium 100 mg capsule (Colace) 100 mg PO BID STOOL SOFTENER 02/14/25 psyllium husk 3.4 gram/5.4 gram oral powder (Metamucil) 1 tbsp PO DAILY SUPPLEMENT 02/14/25 denosumab 60 mg/mL subcutaneous syringe (Prolia) 60 mg subcut QMONTH BONE DENSITY 07/11/25 mecobalamin (vitamin B12) 2,500 mcg chewable tablet 2,500 mcg PO DAILY SUPPLEMENT 07/11/25 pantoprazole 40 mg tablet,delayed release 40 mg PO DAILY GERD 07/11/25 acetaminophen 500 mg tablet 1,000 mg (2 x 500 mg) PO Q8H #180 tabs 08/10/25 aspirin 81 mg chewable tablet 81 mg PO BID 4 weeks #56 tabs 08/10/25 oxycodone 5 mg tablet 5 - 10 mg (1 - 2 x 5 mg) PO .q4-6hrs prn PRN Pain Score 4- 10 7 days #60 tabs 08/10/25 Hospital Course Operations total knee replacement Summary of Care Provided Hospital Course: Patient is s/p left robotic assisted total knee arthroplasty with Dr. Lima 08/09/2025. Patient resting comfortably in bed. Rates pain 4/ 10 at rest. With movement 5/10. States taking Tylenol, oxycodone, MS Contin which he takes at baseline and ice help to relieve pain. Patient has been up with therapy. Walking with the assit of a walker. Afebrile, no chest pain, shortness of breath, negative calf pain/ erythema, and no other signs of DVT. Physical Exam Narrative Patient resting comfortably in bed No signs of acute distress Satting well on room air Limb is warm to touch, Sensation intact throughout entire lower extremity, including saphenous, sural, superficial and deep peroneal, and tibial distribution. DP/PT pulses bounding. Dorsiflexion plantarflexion strength 5/5 Dressing clear dry intact Calf nontender to palpation, no erythema, no edema. Negative Homans Weight / BMI Weight Weight: 84 kg Body Mass Index (BMI) 24.4 ABG / Lab / Microbiology Data 08/10/25 05:16 08/10/25 05:16 Laboratory: Laboratory Results - last 24 hr 08/09/25 14:27: POC Glucose 232 H 08/09/25 16:51: POC Glucose 312 H 08/09/25 21:48: POC Glucose 292 H 08/10/25 05:16: WBC 20.6 H, RBC 4.52 L, Hgb 14.3, Hct 42.4, MCV 93.8, MCH 31.6, MCHC 33.7, RDW Std Deviation 46.5 H, RDW Coeff of Dane 13.6, Plt Count 196, MPV 10.3, Immature Gran % (Auto) 0.300, Neut % (Auto) 65.3, Lymph % (Auto) 8.6 L, [place] % (Auto) 6.5, Eos % (Auto) 19.1 H, Baso % (Auto) 0.2, Absolute Neuts (auto)13.5 H, Absolute Lymphs (auto) 1.78, Nucleated RBC % 0, Differential Comment SCANNED, Sodium 136, Potassium 4.6, Chloride 103, Carbon Dioxide 22.2, Anion Gap11, BUN 19, Creatinine 0.87, Estim Creat Clear Calc 85.46, Est GFR (MDRD) Non-Af91, BUN/Creatinine Ratio 21.9 H, Glucose 200 H, Calcium 8.6 08/10/25 06:20: POC Glucose 220 H 08/10/25 11:07: POC Glucose 258 H Microbiology: Microbiology 07/19/25 09:17 Swab (Method) Nasal Screen MRSA/MSSA - Final Radiography Diagnostic Testing: Radiology Impression Knee X-Ray 08/09/25 13:05 IMPRESSION: Status post left total knee replacement. There is good alignment. Postoperative soft tissue changes. Reading Location: [place] [address] D/C Instructions Weight Bearing Status: Weight bearing as tolerated Call your doctor if your incision/area has: Continuous Slow Oozing, Sudden Increased Bleeding, Increased Pain/ Swelling, Increased Redness, Foul Smelling Discharge and Swelling at the incision site Call your doctor if you observe: Fever of 101 or Higher, Inability to urinate, Inability to have a bowel movement, Shortness of breath, Dizziness, Chest pain, Calf discomfort and Uncontrolled pain Remove Dressing in: 1 week Cleanse incision/area with: Soap & Water and Keep Dressing Clean & Dry DC O2, CPAP, BIPAP Needs Home O2 Discharge instructions: No DC home with Oxygen: No When: With [facility] in 2 weeks Meaningful Use Info Meaningful Use Meaningful Use Diagnoses (Choose all that apply): None applicable Discharge Plan Admission Admit Date/Time: 08/09/25 12:04 Attending Provider: Alcides Ch Primary Care Provider: [facility],[place] Consulting Providers: Richardson Jean Baptiste; Harshad Lima Discharge Orders/Prescriptions Prescriptions: New acetaminophen 500 mg Tablet 1,000 mg PO Q8H Qty: 180 0RF aspirin 81 mg Tablet,Chewable 81 mg PO BID 28 Days Qty: 56 0RF oxycodone 5 mg Tablet 5 - 10 mg PO .q4-6hrs prn PRN (Reason: Pain Score 4-10) 7 Days Qty: 60 0RF Continued hydroxyzine pamoate 25 mg capsule 25 mg PO QDAY PRN (Reason: anxiety) empagliflozin 25 mg tablet 25 mg PO QDAY Patient Comments: LAST DOSE WILL BE 02/15/25 cholecalciferol (vitamin D3) 50 mcg (2,000 unit) capsule 50 mcg PO QDAY meloxicam 15 MG tablet 15 mg PO DAILY glimepiride 4 MG tablet 4 mg PO DAILY gabapentin 300 MG capsule 300 mg PO BIDCM alfuzosin 10 MG tablet extended release 24 hr 10 mg PO DAILY fish oil-dha-epa 1 EACH capsule 1 cap PO DAILY morphine 15 MG tablet extended release 15 mg PO TID ondansetron 4 MG tablet 4 mg PO Q8H PRN PRN (Reason: Nausea) Qty: 10 0RF docusate sodium [Colace] 100 mg capsule 100 mg PO BID Metamucil 3.4 gram/5.4 gram powder 1 tbsp PO DAILY Rx Instructions: mix into at least 8 oz of water or juice before administering mecobalamin (vitamin B12) 2,500 mcg tablet,chewable 2,500 mcg PO DAILY Prolia 60 mg/mL syringe 60 mg subcut QMONTH pantoprazole 40 mg tablet,delayed release (DR/EC) 40 mg PO DAILY Held aspirin [Adult Aspirin Regimen] 81 mg tablet,delayed release (DR/EC) 81 mg PO QDAY Hold Instructions: Resume on 09/07/25. Discontinued acetaminophen 500 mg/15 mL liquid 500 mg PO Q4H PRN (Reason: pain) Other Ambulatory Orders: 12 Lead EKG (Routine) Location: None Selected Ordered By: Dr. Gorge Sal Referrals / Follow Up: [facility] [Primary Care Provider, None] Disposition Disposition (needs filled in before D/C Order can be placed): Home, Self Care 08/10/25 1213 <Electronically signed by Yoana PEREIRA> Cosigner Signature (if applicable): CC: RANDALL Lee; [facility]~ Signed [facility] Work Phone: [phone] 751-804210-17-2025 Consult note [facility] Medical Records Department [address] [place] [id number] Counseling Note - Pharmacy 08/10/25 1343 MR#: [id number] Acct: [id number] Name: AGAPITO MESSER Rep #:[id number] : 1950 74 From: Amy Collins PCP: [facility] Status:ADM JULIETH Y Location: [place]3 [id number] Pharmacy [facility] Counseling Pharmacy Service has performed discharge medication reconciliation and counseling for this patient. 1. ACETAMINOPHEN 1000MG PO Q8 2. ASPIRIN 81MG PO BID, THEN RESUME DAILY ON 09/07/25 3. OXYCODONE 5-10MG PO Q4-6H PRN PAIN (patient also on morphine SR, patient sayalane talked to PA about when to take vs oxycodone for breakthrough) The patient's discharge medication list was reviewed for discrepancies and discrepancies were resolved. The patient was counseled on the following discharge medications and changes in medications for homegoing were reviewed. The Reason for Use, instructions for use, and potential side effects were reviewed for all new medications. The patient's questions regarding all of their medications were answered. The patient was able to verbally demonstrate an understanding of their dischargemedications. Medications at Discharge Home Medications alfuzosin 10 mg tablet,extended release 24 hr 10 mg PO DAILY KIDNEYS 08/05/17 gabapentin 300 mg capsule 300 mg PO BIDCM NERVE PAIN 08/05/17 glimepiride 4 mg tablet 4 mg PO DAILY DIABETES 08/05/17 meloxicam 15 mg tablet 15 mg PO DAILY PAIN 08/05/17 fish oil-dha-epa 1,200 mg-144 mg-216 mg capsule 1 cap PO DAILY SUPPLEMENT 09/04/20 morphine 15 mg tablet,extended release 15 mg PO TID PAIN 09/04/20 ondansetron 4 mg disintegrating tablet 4 mg PO Q8H PRN PRN Nausea #10 tabs 09/15/22 aspirin 81 mg tablet,delayed release (Adult Aspirin Regimen) 81 mg PO QDAY [facility] 12/18/24 Held on 08/10/25. Instructions: Resume on 09/07/25. cholecalciferol (vitamin D3) 50 mcg (2,000 unit) capsule 50 mcg PO QDAY SUPPLEMENT 12/18/24 empagliflozin 25 mg tablet 25 mg PO QDAY DIABETES 12/18/24 hydroxyzine pamoate 25 mg capsule 25 mg PO QDAY PRN anxiety 12/18/24 docusate sodium 100 mg capsule (Colace) 100 mg PO BID STOOL SOFTENER 02/14/25 psyllium husk 3.4 gram/5.4 gram oral powder (Metamucil) 1 tbsp PO DAILY SUPPLEMENT 02/14/25 denosumab 60 mg/mL subcutaneous syringe (Prolia) 60 mg subcut QMONTH BONE DENSITY 07/11/25 mecobalamin (vitamin B12) 2,500 mcg chewable tablet 2,500 mcg PO DAILY SUPPLEMENT 07/11/25 pantoprazole 40 mg tablet,delayed release 40 mg PO DAILY GERD 07/11/25 acetaminophen 500 mg tablet 1,000 mg (2 x 500 mg) PO Q8H #180 tabs 08/10/25 aspirin 81 mg chewable tablet 81 mg PO BID 4 weeks #56 tabs 08/10/25 oxycodone 5 mg tablet 5 - 10 mg (1 - 2 x 5 mg) PO .q4-6hrs prn PRN Pain Score 4- 10 7 days #60 tabs 08/10/25 08/10/25 1345 Date _ Amy Collins Cosigner Signature (if applicable): Date CC: ~ Signed [facility]10-17-2025 Discharge summary [facility] Medical Records Department [address] [place] [address] [place] [address] Discharge Summary 08/10/25 1149 MR#: [id number] Acct: [id number] Name: AGAPITO MESSER Rep #:[id number] : 1950 74 From: Yoana PEREIRA PCP: [facility] Status:ADM JULIETH Location: [place] [address] Providers Date of Admission: 08/09/25 Date of Discharge: 08/10/25 Primary Care Physician: [facility] Consultations 08/09/25 12:04 Consult: Hospitalist Routine Consulting Provider: Richardson Jean Baptiste Reason for Consult: total knee post op medical management EMERGENT Consult: No MD Notified: Yes Date Notified: 08/09/25 Time Notified: 14:36 Method of Notification: Text Reason For Visit: Total Knee Replacement Robotic Arm Radha Diagnosis Discharge Diagnosis (1) Status post left knee replacement: Status: Acute Code(s): Z96.652 - Presence of left artificial knee joint Plan: 1. Will continue PT today. Weightbearing as tolerated 2. plan for discharge this afternoon following PT 3. Patient will follow up for post op appointment in 2 weeks as previously scheduled 4. Patient has outpatient PT appointment Wednesday as previously scheduled 5. WBC 20.6 acute reactive leukocytosis: secondary to pre operative decadron. noacute systemic signs of infection. will monitor, and likely self resolve. 6. H/H 14.3/42.4: post operavtive anemia secondary to acute blood loss intraoperatively. Patient isasymptomatic at this time. No intraoperative complications. will continue to monitor. no acute interventions. 7. DVT prophylaxis : Aspirin 81 mg twice daily x 4 weeks 8. Pain control: patient instructed to take tylenol 500mg 2 tablets TID. and oxycodone 1-2 tablets every 4-6 hours only as needed for pain control. 9. Patient also given a prescription of meloxicam, Pepcid, senna 10. ok to remove post op dressing. post op day 5 Medications at Discharge Home Medications alfuzosin 10 mg tablet,extended release 24 hr 10 mg PO DAILY KIDNEYS 08/05/17 gabapentin 300 mg capsule 300 mg PO BIDCM NERVE PAIN 08/05/17 glimepiride 4 mg tablet 4 mg PO DAILY DIABETES 08/05/17 meloxicam 15 mg tablet 15 mg PO DAILY PAIN 08/05/17 fish oil-dha-epa 1,200 mg-144 mg-216 mg capsule 1 cap PO DAILY SUPPLEMENT 09/04/20 morphine 15 mg tablet,extended release 15 mg PO TID PAIN 09/04/20 ondansetron 4 mg disintegrating tablet 4 mg PO Q8H PRN PRN Nausea #10 tabs 09/15/22 aspirin 81 mg tablet,delayed release (Adult Aspirin Regimen) 81 mg PO QDAY [facility] 12/18/24 Held on 08/10/25. Instructions: Resume on 09/07/25. cholecalciferol (vitamin D3) 50 mcg (2,000 unit) capsule 50 mcg PO QDAY SUPPLEMENT 12/18/24 empagliflozin 25 mg tablet 25 mg PO QDAY DIABETES 12/18/24 hydroxyzine pamoate 25 mg capsule 25 mg PO QDAY PRN anxiety 12/18/24 docusate sodium 100 mg capsule (Colace) 100 mg PO BID STOOL SOFTENER 02/14/25 psyllium husk 3.4 gram/5.4 gram oral powder (Metamucil) 1 tbsp PO DAILY SUPPLEMENT 02/14/25 denosumab 60 mg/mL subcutaneous syringe (Prolia) 60 mg subcut QMONTH BONE DENSITY 07/11/25 mecobalamin (vitamin B12) 2,500 mcg chewable tablet 2,500 mcg PO DAILY SUPPLEMENT 07/11/25 pantoprazole 40 mg tablet,delayed release 40 mg PO DAILY GERD 07/11/25 acetaminophen 500 mg tablet 1,000 mg (2 x 500 mg) PO Q8H #180 tabs 08/10/25 aspirin 81 mg chewable tablet 81 mg PO BID 4 weeks #56 tabs 08/10/25 oxycodone 5 mg tablet 5 - 10 mg (1 - 2 x 5 mg) PO .q4-6hrs prn PRN Pain Score 4- 10 7 days #60 tabs 08/10/25 Hospital Course Operations total knee replacement Summary of Care Provided Hospital Course: Patient is s/p left robotic assisted total knee arthroplasty with Dr. Lima 08/09/2025. Patient resting comfortably in bed. Rates pain 4/ 10 at rest. With movement 5/10. States taking Tylenol, oxycodone, MS Contin which he takes at baseline and ice help to relieve pain. Patient has been up with therapy. Walking with the assit of a walker. Afebrile, no chest pain, shortness of breath, negative calf pain/ erythema, and no other signs of DVT. Physical Exam Narrative Patient resting comfortably in bed No signs of acute distress Satting well on room air Limb is warm to touch, Sensation intact throughout entire lower extremity, including saphenous, sural, superficial and deep peroneal, and tibial distribution. DP/PT pulses bounding. Dorsiflexion plantarflexion strength 5/5 Dressing clear dry intact Calf nontender to palpation, no erythema, no edema. Negative Homans Weight / BMI Weight Weight: 84 kg Body Mass Index (BMI) 24.4 ABG / Lab / Microbiology Data 08/10/25 05:16 08/10/25 05:16 Laboratory: Laboratory Results - last 24 hr 08/09/25 14:27: POC Glucose 232 H 08/09/25 16:51: POC Glucose 312 H 08/09/25 21:48: POC Glucose 292 H 08/10/25 05:16: WBC 20.6 H, RBC 4.52 L, Hgb 14.3, Hct 42.4, MCV 93.8, MCH 31.6, MCHC 33.7, RDW Std Deviation 46.5 H, RDW Coeff of Dane 13.6, Plt Count 196, MPV 10.3, Immature Gran % (Auto) 0.300, Neut% (Auto) 65.3, Lymph % (Auto) 8.6 L, [place] % (Auto) 6.5, Eos % (Auto) 19.1 H, Baso % (Auto) 0.2, Absolute Neuts (auto)13.5 H, Absolute Lymphs (auto) 1.78, Nucleated RBC % 0, Differential Comment SCANNED, Sodium 136, Potassium 4.6, Chloride 103, Carbon Dioxide 22.2, Anion Gap11, BUN 19, Creatinine 0.87, Estim Creat Clear Calc 85.46, Est GFR (MDRD) Non-Af91, BUN/Creatinine Ratio 21.9 H, Glucose 200 H, Calcium 8.6 08/10/25 06:20: POC Glucose 220 H 08/10/25 11:07: POC Glucose 258 H Microbiology: Microbiology 07/19/25 09:17 Swab (Method) Nasal Screen MRSA/MSSA - Final Radiography Diagnostic Testing: Radiology Impression Knee X-Ray 08/09/25 13:05 IMPRESSION: Status post left total knee replacement. There is good alignment. Postoperative soft tissue changes. Reading Location: [place] [address] D/C Instructions Weight Bearing Status: Weight bearing as tolerated Call your doctor if your incision/area has: Continuous Slow Oozing, Sudden Increased Bleeding, Increased Pain/ Swelling, Increased Redness, Foul Smelling Discharge and Swelling at the incision site Call your doctor if you observe: Fever of 101 or Higher, Inability to urinate, Inability to have a bowel movement, Shortness of breath, Dizziness, Chest pain, Calf discomfort and Uncontrolled pain Remove Dressing in: 1 week Cleanse incision/area with: Soap & Water and Keep Dressing Clean & Dry DC O2, CPAP, BIPAP Needs Home O2 Discharge instructions: No DC home with Oxygen: No When: With [facility] in 2 weeks Meaningful Use Info Meaningful Use Meaningful Use Diagnoses (Choose all that apply): None applicable Discharge Plan Admission Admit Date/Time: 08/09/25 12:04 Attending Provider: Alcides Ch Primary Care Provider: [facility],[place] Consulting Providers: Richardson Jean Baptiste; Harshad Lima Discharge Orders/Prescriptions Prescriptions: New acetaminophen 500 mg Tablet 1,000 mg PO Q8H Qty: 180 0RF aspirin 81 mg Tablet,Chewable 81 mg PO BID 28 Days Qty: 56 0RF oxycodone 5 mg Tablet 5 - 10 mg PO .q4-6hrs prn PRN (Reason: Pain Score 4-10) 7 Days Qty: 60 0RF Continued hydroxyzine pamoate 25 mg capsule 25 mg PO QDAY PRN (Reason: anxiety) empagliflozin 25 mg tablet 25 mg PO QDAY Patient Comments: LAST DOSE WILL BE 02/15/25 cholecalciferol (vitamin D3) 50 mcg (2,000 unit) capsule 50 mcg PO QDAY meloxicam 15 MG tablet 15 mg PO DAILY glimepiride 4 MG tablet 4 mg PO DAILY gabapentin 300 MG capsule 300 mg PO BIDCM alfuzosin 10 MG tablet extended release 24 hr 10 mg PO DAILY fish oil-dha-epa 1 EACH capsule 1 cap PO DAILY morphine 15 MG tablet extended release 15 mg PO TID ondansetron 4 MG tablet 4 mg PO Q8H PRN PRN (Reason: Nausea) Qty: 10 0RF docusate sodium [Colace] 100 mg capsule 100 mg PO BID Metamucil 3.4 gram/5.4 gram powder 1 tbsp PO DAILY Rx Instructions: mix into at least 8 oz of water or juice before administering mecobalamin (vitamin B12) 2,500 mcg tablet,chewable 2,500 mcg PO DAILY Prolia 60 mg/mL syringe 60 mg subcut QMONTH pantoprazole 40 mg tablet,delayed release (DR/EC) 40 mg PO DAILY Held aspirin [Adult Aspirin Regimen] 81 mg tablet,delayed release (DR/EC) 81 mg PO QDAY Hold Instructions: Resume on 09/07/25. Discontinued acetaminophen 500 mg/15 mL liquid 500 mg PO Q4H PRN (Reason: pain) Other Ambulatory Orders: 12 Lead EKG (Routine) Location: None Selected Ordered By: Dr. Gorge Sal Referrals / Follow Up: [facility] [Primary Care Provider, None] Disposition Disposition (needs filled in before D/C Order can be placed): Home, Self Care 08/10/25 1213 Cosigner Signature (if applicable): CC: RANDALL Lee; [facility]~ Signed [facility]10-17-2025 [facility] Medical Records Department [address] [facility] [place] [address] Discharge Summary 08/10/25 1149 MR#: [id number] Acct: [id number] Name: AGAPITO MESSER Rep #: [id number] : 1950 74 From: Yoana PEREIRA PCP: [facility] Status:ADM JULIETH Location: [place] [address] Providers Date of Admission: 08/09/25 Date of Discharge: 08/10/25 Primary Care Physician: [facility] Consultations 08/09/25 12:04 Consult: Hospitalist Routine Consulting Provider: Richardson Jean Baptiste Reason for Consult: total knee post op medical management EMERGENT Consult: No MD Notified: Yes Date Notified: 08/09/25 Time Notified: 14:36 Method of Notification: Text Reason For Visit: Total Knee Replacement Robotic Arm Radha Diagnosis Discharge Diagnosis (1) Status post left knee replacement: Status: Acute Code(s): Z96.652 - Presence of left artificial knee joint Plan: 1. Will continue PT today. Weightbearing as tolerated 2. plan for discharge this afternoon following PT 3. Patient will follow up for post op appointment in 2 weeks as previously scheduled 4. Patient has outpatient PT appointment Wednesday as previously scheduled 5. WBC 20.6 acute reactive leukocytosis: secondary to pre operative decadron. no acute systemic signs of infection. will monitor, and likely self resolve. 6. H/H 14.3/42.4: post operavtive anemia secondary to acute blood loss intraoperatively. Patient is asymptomatic at this time. No intraoperative complications. will continue to monitor. no acute interventions. 7. DVT prophylaxis : Aspirin 81 mg twice daily x 4 weeks 8. Pain control: patient instructed to take tylenol 500mg 2 tablets TID. and oxycodone 1-2 tablets every 4-6 hours only as needed for pain control. 9. Patient also given a prescription of meloxicam, Pepcid, senna 10. ok to remove post op dressing. post op day 5 Medications at Discharge Home Medications alfuzosin 10 mg tablet,extended release 24 hr 10 mg PO DAILY KIDNEYS 08/05/17 gabapentin 300 mg capsule 300 mg PO BIDCM NERVE PAIN 08/05/17 glimepiride 4 mg tablet 4 mg PO DAILY DIABETES 08/05/17 meloxicam 15 mg tablet 15 mg PO DAILY PAIN 08/05/17 fish oil-dha-epa 1,200 mg-144 mg-216 mg capsule 1 cap PO DAILY SUPPLEMENT 09/04/20 morphine 15 mg tablet,extended release 15 mg PO TID PAIN 09/04/20 ondansetron 4 mg disintegrating tablet 4 mg PO Q8H PRN PRN Nausea #10 tabs 09/15/22 aspirin 81 mg tablet,delayed release (Adult Aspirin Regimen) 81 mg PO QDAY [facility] 12/18/24 Held on 08/10/25. Instructions: Resume on 09/07/25. cholecalciferol (vitamin D3) 50 mcg (2,000 unit) capsule 50 mcg PO QDAY SUPPLEMENT 12/18/24 empagliflozin 25 mg tablet 25 mg PO QDAY DIABETES 12/18/24 hydroxyzine pamoate 25 mg capsule 25 mg PO QDAY PRN anxiety 12/18/24 docusate sodium 100 mg capsule (Colace) 100 mg PO BID STOOL SOFTENER 02/14/25 psyllium husk 3.4 gram/5.4 gram oral powder (Metamucil) 1 tbsp PO DAILY SUPPLEMENT 02/14/25 denosumab 60 mg/mL subcutaneous syringe (Prolia) 60 mg subcut QMONTH BONE DENSITY 07/11/25 mecobalamin (vitamin B12) 2,500 mcg chewable tablet 2,500 mcg PO DAILY SUPPLEMENT 07/11/25 pantoprazole 40 mg tablet,delayed release 40 mg PO DAILY GERD 07/11/25 acetaminophen 500 mg tablet 1,000 mg (2 x 500 mg) PO Q8H #180 tabs 08/10/25 aspirin 81 mg chewable tablet 81 mg PO BID 4 weeks #56 tabs 08/10/25 oxycodone 5 mg tablet 5 - 10 mg (1 - 2 x 5 mg) PO .q4-6hrs prn PRN Pain Score 4- 10 7 days #60 tabs 08/10/25 Hospital Course Operations total knee replacement Summary of Care Provided Hospital Course: Patient is s/p left robotic assisted total knee arthroplasty with Dr. Lima 08/09/2025. Patient resting comfortably in bed. Rates pain 4/ 10 at rest. With movement 5/10. States taking Tylenol, oxycodone, MS Contin which he takes at baseline and ice help to relieve pain. Patient has been up with therapy. Walking with the assit of a walker. Afebrile, no chest pain, shortness of breath, negative calf pain/ erythema, and no other signs of DVT. Physical Exam Narrative Patient resting comfortably in bed No signs of acute distress Satting well on room air Limb is warm to touch, Sensation intact throughout entire lower extremity, including saphenous, sural, superficial and deep peroneal, and tibial distribution. DP/PT pulses bounding. Dorsiflexion plantarflexion strength 5/5 Dressing clear dry intact Calf nontender to palpation, no erythema, no edema. Negative Homans Weight / BMI Weight Weight: 84 kg Body Mass Index (BMI) 24.4 ABG / Lab / Microbiology Data 08/10/25 05:16 08/10/25 05:16 Laboratory: Laboratory Results - last 24 hr 08/09/25 14:27: POC Glucose 232 H 08/09/25 16:51: POC Glucose 312 H 08/09/25 21:48: POC Glucose 292 H 08/10/25 05:16: WBC 20.6 H, RBC 4.52 L, Hgb 14.3, Hct 42.4, MCV 93.8, MCH 31.6, MCHC 33.7 (more content not included)...[facility]10-16-2025 Consult note Author Richardson Jean Baptiste [facility] Note Date/Time August 09, 2025 8 :39pm [facility] Medical Records Department [address] [place] [address] Consultation - Hospitalist 08/09/25 1441 MR#: [id number] Acct: [id number] Name: AGAPITO MESSER Rep #:[id number] : 1950 74 From: Richardson arambula DO PCP: [facility] Status:ADM JULIETH Location: [place] [id number] Assessment & Plan Assessment/Plan (1) Status post left knee replacement: PLAN: Plan Patient is a 74-year-old male who presented to [facility] on 08/09/2025 for planned left knee replacement. Medicine consulted postoperatively for medical management. 1. Left knee osteoarthritis ? Orthopedic surgery primary. S/p left total knee arthroplasty with Dr. Harding 08/09. Tolerated procedure well, no intraoperative complications noted. Postoperative pain control with scheduled Tylenol, home gabapentin, home MS Contin, home Mobic and oxycodone as needed per orthopedics. DVT prophylaxis with baby aspirin twice daily per orthopedics. Follow-up a.m. CBC and BMP. PT/OT/case management consulted. 2. Type 2 diabetes mellitus ? Glucose 232 postoperatively. Most recent A1c 8.0% on 02/06. Hold home glimepiride and empagliflozin. Will treat with sliding scale insulin with mealsat this time, adjust as needed. 3. Chronic pain with neuropathy ? Home gabapentin, Mobic and MS Contin continued as above. 4. GERD, history of Schatzki ring ? Had EGD done in January and a Schatzki ring was found and esophageal dilation was done. Patient reports no current swallowing issues. Continue home PPI. 5. BPH with obstructive symptoms ? Continue home Flomax. DVT prophylaxis: Baby aspirin twice daily per orthopedics Total clinical time spent by myself addressing the patient's medical issues, reviewing all the data, and collaborating with patient's care team: 36 minutes. HPI Consult Data Date of Consult: 08/09/25 HPI Narrative Reason for Consultation: Postoperative medical management HPI Narrative: AGAPITO MESSER, is a 74 M who presented to [facility] on 08/09/2025 for planned orthopedic procedure. Medicine consulted postoperativelyfor medical management. Patient had left total knee arthroplasty done with Dr. Lima today. Tolerated procedure well, no intraoperative complications noted. I saw the patient at bedside this evening postoperatively. Patient was sittingup comfortably in bedside chair, conversing normally, in no acute distress. Reported mild pain in the distal quadriceps area just of the knee but otherwise stated that he was doing well. He had moved from bed to bedside chair without significant issue. Told me that he was wanting to get up to walk on the floor but understood that he could not do this without assistance. No other acute concerns at this time. [facility] Medical History Wears dentures Wears glasses Anxiety Depression History of steroid therapy Ambulates with cane History of renal disease Fatty liver Migraine headache Dietary restriction Gastric reflux Smoker History of echocardiogram History of stress test Traumatic amputation of ear Finger amputation, traumatic Enlarged prostate Back pain Arthritis Kidney stones Home Medications ?Medication ?Instructions ?Recorded ?Last Taken ?Type alfuzosin 10 mg tablet,extended 10 mg PO DAILY KIDNEYS 08/05/17 02/18/25 History release 24 hr gabapentin 300 mg capsule 300 mg PO BIDCM NERVE PAIN 1 02/18/25 History glimepiride 4 mg tablet 4 mg PO DAILY DIABETES 08/0502/18/25 History meloxicam 15 mg tablet 15 mg PO DAILY PAIN 08/05/17 02/15/25 History fish oil-dha-epa 1,200 mg-144 1 cap PO DAILY SUPPLEMEN T 09/04/20 02/15/25 History mg-216 mg capsule morphine 15 mg tablet,extended 15 mg PO TID PAIN 09/0402/18/25 History release ondansetron 4 mg disintegrating 4 mg PO Q8H PRN PRN Na usea #10 tabs 09/15/22 Unknown Rx tablet aspirin 81 mg tablet,delayed 81 mg PO QDAY [facility] 12/18/24 02/15/25 History release (Adult Aspirin Regimen) cholecalciferol (vitamin D3) 50 50 mcg PO QDAY SUPPLEM ENT 12/18/24 02/18/25 History mcg (2,000 unit) capsule empagliflozin 25 mg tablet 25 mg PO QDAY DIABETES 11/2602/15/25 History hydroxyzine pamoate 25 mg capsule 25 mg PO QDAY PRN an xiety 12/18/24 Unknown History docusate sodium 100 mg capsule 100 mg PO BID STOOL SOF TENER 02/14/25 02/18/25 History (Colace) psyllium husk 3.4 gram/5.4 gram 1 tbsp PO DAILY SUPPLE MENT 02/14/25 02/18/25 History oral powder (Metamucil) acetaminophen 500 mg/15 mL oral 500 mg PO Q4H PRN pain 02/19/25 02/18/25 History liquid denosumab 60 mg/mL subcutaneous 60 mg subcut QMONTH SAVANNAH NE DENSITY 07/11/25 Unknown History syringe (Prolia) mecobalamin (vitamin B12) 2,500 2,500 mcg PO DAILY SUP PLEMENT 07/11/25 Unknown History mcg chewable tablet pantoprazole 40 mg tablet,delayed 40 mg PO DAILY GERD 07/11/25 Unknown History release Allergy/AdvReac Type Severity Reaction Status Date / Time hydrocodone (From Vicodin) Allergy Rash Verified 08/09/25 08:12 celecoxib (From Celebrex) AdvReac goofy Verified 08/09/25 08:12 Surgical History History of esophagogastroduodenoscopy (EGD) History of rotator cuff surgery H/O lithotripsy Social History Smoking Status: Current every day smoker tobacco type: cigarettes alcohol intake: never substance use type: does not use ROS Constitutional Constitutional: Denies chills, fatigue, fever(s) or weakness Cardiovascular Cardiovascular: Denies chest pain Respiratory/Chest Respiratory/Chest: Denies shortness of breath at rest Gastrointestinal Gastrointestinal: Denies abdominal pain Genitourinary Genitourinary: Denies dysuria Musculoskeletal Musculoskeletal: Reports joint pain; Denies arthralgias or myalgias Neurologic Neurologic: Denies dizziness, focal weakness, headache(s), numbness or tingling Physical Exam Const alert, oriented x3, no apparent distress, average body habitus, healthy appearing and well nourished Constitutional Narrative: Pleasant elderly male, sitting back comfortably in bedside chair, conversing normally, in no acute distress. General Appearance: cooperative, comfortable, well kempt and well developed HEENT normocephalic, head/scalp atraumatic, hearing grossly normal bilaterally, nasal mucous membranes and turbinates normal and moist oral mucous membranes Eyes PERRL, EOMs intact bilaterally and conjunctivae normal Neck full ROM Chest inspection of chest normal Resp normal respiratory effort, normal air movement, no use of accessory muscles and clear to auscultation bilaterally Cardio regular rate, regular rhythm, no murmurs and peripheral pulses 2+ throughout GI normal to inspection, nondistended, normoactive bowel sounds, soft to palpation,non-tender and non-distended Back/Spine normal ROM Extremity Extremity Narrative: Left knee with surgical dressing and ice pack in place. Psych mental status grossly normal Lab / Micro Data Labs: Laboratory Results - last 24 hr 08/09/25 08:43: POC Glucose 175 H Imaging Radiology Impression Knee X-Ray 08/09/25 13:05 IMPRESSION: Status post left total knee replacement. There is good alignment. Postoperative soft tissue changes. Reading Location: [facility] Charges/Coding Visit Charges Inpatient E&M: 57710 Subs Hosp L2 08/09/252038 <Electronically signed by Richardson Jean Baptiste DO> Cosigner Signature (if applicable): CC: Dr. Harshad Lima, DO; [facility]~ Signed [facility] Work Phone: 1(312) 297-366810-16-2025 Consult note [facility] Medical Records Department [address] [facility] [place] [address] Consultation - Hospitalist 08/09/25 1441 MR#: [id number] Acct: [id number] Name: AGAPITO MESSER Rep #:[id number] : 1950 74 From: Richardson arambula DO PCP: [facility] Status:ADM JULIETH Location: MS3 OC176-1 Assessment & Plan Assessment/Plan (1) Status post left knee replacement: PLAN: Plan Patient is a 74-year-old male who presented to [facility] on 08/09/2025 for plannedleft knee replacement. Medicine consulted postoperatively for medical management. 1. Left knee osteoarthritis ? Orthopedic surgery primary. S/p left total knee arthroplasty with Dr. Harding 08/09. Tolerated procedure well, no intraoperative complications noted. Postoperative pain control with scheduled Tylenol, home gabapentin, home MS Contin, home Mobic and oxycodone as needed per orthopedics. DVT prophylaxis with baby aspirin twice daily per orthopedics. Follow-up a.m. CBC and BMP. PT/OT/case management consulted. 2. Type 2 diabetes mellitus ? Glucose 232 postoperatively. Most recent A1c 8.0% on 02/06. Hold home glimepiride and empagliflozin. Will treat with sliding scale insulin with mealsat this time, adjust as needed. 3. Chronic pain with neuropathy ? Home gabapentin, Mobic and MS Contin continued as above. 4. GERD, history of Schatzki ring ? Had EGD done in January and a Schatzki ring was found and esophageal dilation was done. Patient reports no current swallowing issues. Continue home PPI. 5. BPH with obstructive symptoms ? Continue home Flomax. DVT prophylaxis: Baby aspirin twice daily per orthopedics Total clinical time spent by myself addressing the patient's medical issues, reviewing all the data, and collaborating with patient's care team: 36 minutes. HPI Consult Data Date of Consult: 08/09/25 HPI Narrative Reason for Consultation: Postoperative medical management HPI Narrative: AGAPITO MESSER, is a 74 M who presented to [facility] on 08/09/2025 for planned orthopedic procedure. Medicine consulted postoperativelyfor medical management. Patient had left total knee arthroplasty done with Dr. Lima today. Tolerated procedure well, no intraoperative complications noted. I saw the patient at bedside this evening postoperatively. Patient was sittingup comfortably in bedside chair, conversing normally, in no acute distress. Reported mild pain in the distal quadriceps area just of the knee but otherwise stated that he was doing well. He had moved from bed to bedside chair without significant issue. Told me that he was wanting to get up to walk on the floor but understood that he could not do this without assistance. No other acute concerns at this time. [facility] Medical History Wears dentures Wears glasses Anxiety Depression History of steroid therapy Ambulates with cane History of renal disease Fatty liver Migraine headache Dietary restriction Gastric reflux Smoker History of echocardiogram History of stress test Traumatic amputation of ear Finger amputation, traumatic Enlarged prostate Back pain Arthritis Kidney stones Home Medications ?Medication ?Instructions ?Recorded ?Last Taken ?Type alfuzosin 10 mg tablet,extended 10 mg PO DAILY KIDNEYS 08/05/17 02/18/25 History release 24 hr gabapentin 300 mg capsule 300 mg PO BIDCM NERVE PAIN 1 02/18/25 History glimepiride 4 mg tablet 4 mg PO DAILY DIABETES 08/0502/18/25 History meloxicam 15 mg tablet 15 mg PO DAILY PAIN 08/05/17 02/15/25 History fish oil-dha-epa 1,200 mg-144 1 cap PO DAILY SUPPLEMEN T 09/04/20 02/15/25 History mg-216 mg capsule morphine 15 mg tablet,extended 15 mg PO TID PAIN 09/0402/18/25 History release ondansetron 4 mg disintegrating 4 mg PO Q8H PRN PRN Na usea #10 tabs 09/15/22 Unknown Rx tablet aspirin 81 mg tablet,delayed 81 mg PO QDAY HEART HEALT H 12/18/24 02/15/25 History release (Adult Aspirin Regimen) cholecalciferol (vitamin D3) 50 50 mcg PO QDAY SUPPLEM ENT 12/18/24 02/18/25 History mcg (2,000 unit) capsule empagliflozin 25 mg tablet 25 mg PO QDAY DIABETES 11/2602/15/25 History hydroxyzine pamoate 25 mg capsule 25 mg PO QDAY PRN an xiety 12/18/24 Unknown History docusate sodium 100 mg capsule 100 mg PO BID STOOL SOF TENER 02/14/25 02/18/25 History (Colace) psyllium husk 3.4 gram/5.4 gram 1 tbsp PO DAILY SUPPLE MENT 02/14/25 02/18/25 History oral powder (Metamucil) acetaminophen 500 mg/15 mL oral 500 mg PO Q4H PRN pain 02/19/25 02/18/25 History liquid denosumab 60 mg/mL subcutaneous 60 mg subcut QMONTH SAVANNAH NE DENSITY 07/11/25 Unknown History syringe (Prolia) mecobalamin (vitamin B12) 2,500 2,500 mcg PO DAILY SUP PLEMENT 07/11/25 Unknown History mcg chewable tablet pantoprazole 40 mg tablet,delayed 40 mg PO DAILY GERD 07/11/25 Unknown History release Allergy/AdvReac Type Severity Reaction Status Date / Time hydrocodone (From Vicodin) Allergy Rash Verified 08/09/25 08:12 celecoxib (From Celebrex) AdvReac goofy Verified 08/09/25 08:12 Surgical History History of esophagogastroduodenoscopy (EGD) History of rotator cuff surgery H/O lithotripsy Social History Smoking Status: Current every day smoker tobacco type: cigarettes alcohol intake: never substance use type: does not use ROS Constitutional Constitutional: Denies chills, fatigue, fever(s) or weakness Cardiovascular Cardiovascular: Denies chest pain Respiratory/Chest Respiratory/Chest: Denies shortness of breath at rest Gastrointestinal Gastrointestinal: Denies abdominal pain Genitourinary Genitourinary: Denies dysuria Musculoskeletal Musculoskeletal: Reports joint pain; Denies arthralgias or myalgias Neurologic Neurologic: Denies dizziness, focal weakness, headache(s), numbness or tingling Physical Exam Const alert, oriented x3, no apparent distress, average body habitus, healthy appearing and well nourished Constitutional Narrative: Pleasant elderly male, sitting back comfortably in bedside chair, conversing normally, in no acute distress. General Appearance: cooperative, comfortable, well kempt and well developed HEENT normocephalic, head/scalp atraumatic, hearing grossly normal bilaterally, nasal mucous membranes and turbinates normal and moist oral mucous membranes Eyes PERRL, EOMs intact bilaterally and conjunctivae normal Neck full ROM Chest inspection of chest normal Resp normal respiratory effort, normal air movement, no use of accessory muscles and clear to auscultation bilaterally Cardio regular rate, regular rhythm, no murmurs and peripheral pulses 2+ throughout GI normal to inspection, nondistended, normoactive bowel sounds, soft to palpation,non-tender and non-distended Back/Spine normal ROM Extremity Extremity Narrative: Left knee with surgical dressing and ice pack in place. Psych mental status grossly normal Lab / Micro Data Labs: Laboratory Results - last 24 hr 08/09/25 08:43: POC Glucose 175 H Imaging Radiology Impression Knee X-Ray 08/09/25 13:05 IMPRESSION: Status post left total knee replacement. There is good alignment. Postoperative soft tissue changes. Reading Location: [place] [address] Charges/Coding Visit Charges Inpatient E&M: 37252 Subs Hosp L2 08/09/252038 Cosigner Signature (if applicable): CC: Dr. Harshad Lima, DO; [facility]~ Signed [facility]10-16-2025 Consult note Author Gorge Sal [facility] Note Date/Time August 09, 2025 2 :10pm [facility] Medical Records Department [address] [facility] [address] [place] [address] Anesthesia Postop Eval II 08/09/25 1409 MR#: [id number] Acct: [id number] Name: AGAPITO MESSER Rep #:[id number] : 1950 74 From: Gorge Peres [facility] Status:ADM JULIETH Y Race: C Location: MS3 MS305 -1 Anesthesia Postop Eval I Sum Postop Eval Completion status Anesthesia document: Postop Eval 1 completed: Yes Anesthesia Postop Eval I Summary Anesthesia Postop Eval I Summary: Anesthesia Postop Eval I: Assessment Summary Airway patent Yes 08/09/25 12:03 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.TNES Spontaneous unlabored Yes 08/09/25 12:03 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.TNES respirations Mental status nausea No 08/09/25 12:03 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.TNES Vomiting No 08/09/25 12:03 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.TNES Anesthesia Postop Eval I: Fluid Summary Crystalloid volume administer 1,800 08/09/25 12:03 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.TNES (ml) Colloids volume administered ( ml) Blood Product volume administered (ml) Total IV fluid infused 1,800 08/09/25 12:03 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.TNES Anesthesia Postop Eval I: Summary Notes Anesthesia Complication No 08/09/25 12:03 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.TNES Anesthesia Complication Comment: Post-operative progress note Anesthesia: Postop Eval II Evaluation Mental status: Awake and Calm Pain Level: 1 nausea: No Vomiting: No Complications Anesthesia Complication: No 08/09/25 1410 <Electronically signed by Gorge Sal MD> Date _ Gorge Sal MD Cosigner Signature: Date CC: ~ Signed [facility] Work Phone: 1(313) 899-751310-16-2025 Consult note [facility] Medical Records Department [address] [place] [address] [place] [address] Anesthesia Postop Eval II 08/09/25 1409 MR#: [id number] Acct: [id number] Name: AGAPITO MESSER Rep #:[id number] : 1950 74 From: Gorge Peres [facility]CP: [facility] Status:ADM JULIETH Y Race: C Location: MS3 MS305 -1 Anesthesia Postop Eval I Sum Postop Eval Completion status Anesthesia document: Postop Eval 1 completed: Yes Anesthesia Postop Eval I Summary Anesthesia Postop Eval I Summary: Anesthesia Postop Eval I: Assessment Summary Airway patent Yes 08/09/25 12:03 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.TNES Spontaneous unlabored Yes 08/09/25 12:03 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.TNES respirations Mental status nausea No 08/09/25 12:03 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.TNES Vomiting No 08/09/25 12:03 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.TNES Anesthesia Postop Eval I: Fluid Summary Crystalloid volume administer 1,800 08/09/25 12:03 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.TNES (ml) Colloids volume administered ( ml) Blood Product volume administered (ml) Total IV fluid infused 1,800 08/09/25 12:03 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.TNES Anesthesia Postop Eval I: Summary Notes Anesthesia Complication No 08/09/25 12:03 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.TNES Anesthesia Complication Comment: Post-operative progress note Anesthesia: Postop Eval II Evaluation Mental status: Awake and Calm Pain Level: 1 nausea: No Vomiting: No Complications Anesthesia Complication: No 08/09/25 1410 > Date _ Gorge Sal MD Cosigner Signature: Date CC: ~ Signed [facility]10-16-2025 Consult note Author Scott Daugherty [facility] Note Date/Time August 09, 2025 1 2:04pm [facility] Medical Records Department [address] [place] [address] Anesthesia Postop Eval I 08/09/25 1203 MR#: [id number] Acct: [id number] Name: AGAPITO MESSER Rep #:[id number] : 1950 74 From: Scott CERNA PCP: [facility] Status:REG SDC Y Race: C Location: [address] Anesthesia: Postop Eval I Current Vital Signs Temperature: 97.6 F Pulse Rate: 99 Blood Pressure: 126/78 Respiratory Rate: 16 Pulse Ox: 94 Assessment Airway patent: Yes Spontaneous unlabored respirations: Yes nausea: No Vomiting: No Anesthesia Complication: No Fluid Hydration Crystalloid volume administer (ml): 1,800 Total IV fluid infused: 1,800 Progress Note Anesthesia document: Postop Eval 1 completed: Yes 08/09/25 1204 <Electronically signed by Scott Daugherty CRNA> Date _ Scott Daugherty CRNA Cosigner Signature: Date CC: ~ Signed [facility] Work Phone: 1(758) 881-226010-16-2025 Evaluation note* Diagnosis Onset Date Resolution Status Admit Date Status post left knee replacement inactive August 09 12:04pm [facility] Work Phone: 1([phone]) 937-242210-16-2025 Procedure note [facility] Medical Records Department [address] [place] [address] Operative Report 08/09/25 1339 MR#: [id number] Acct: [id number] Name: AGAPITO MESSER HITESH Rep #:[id number] : 1950 74 From: Harshad bella DO [facility]CP: [facility] Status:ADM JULIETH Location: [place] [address] Operative Report (Standard) Operative Information Date of Procedure: 08/09/25 Pre-Operative Diagnosis: Left knee osteoarthritis Post-Operative Diagnosis: Left knee osteoarthritis Surgery/Procedure Performed: Robotic arm assisted left total knee arthroplasty solder leveler printed circuit boards: Yes Collector Of Port: Yoana Lion Tasks completed by presser first: Opening & closing, Removing tissue, Implanting device and Retracting Type of Anesthesia: Spinal RN Documented Start/Stop Times: Operation Date: 08/09/25 10:15 Case Time Into Pre-Op 08/09/25 08:12 Out of Pre-Op 08/09/25 10:05 Anesthesia Start 08/09/25 10:06 Into Room 08/09/25 10:06 Procedure Start 08/09/25 10:30 Procedure End 08/09/25 11:54 Anesthesia End 08/09/25 12:00 Out of Room 08/09/25 12:00 Into Recovery 08/09/25 12:01 Procedure Start Time: 10:30 Procedure Stop Time: 11:54 Select all DRAINS/GRAFTS/IMPLANTS that apply: Implanted device Implanted device details: Jose press-fit triathlon CR size #5 femur, press-fit size #5 tibia with 11 mm CS polyethylene Estimated Blood Loss: 75 cc Specimen collected: No Description of surgery: Patient was identified in the preoperative holding area by name, medical record number, and date ofbirth. Informed set was confirmed with the patient. The operative knee was marked with a surgical marker. At time of his procedure, patient brought to the operative suite and positioned supine a standard operating table. Anesthesia then administered a spinal anesthetic. He was thenrepositioned in the supine position with all bony prominences well-padded. We then placed a well-padded pneumatic tourniquet on the left upper thigh. The left upper extremity was brought across patient's chest throughout the procedure. We then prepped and draped the left lower extremity in a normal, sterile orthopedic fashion. We performed a timeout with all parties in attendance in agreement with the side, site, operation be performed. No concerns were voiced and would like to proceed with surgery. 2 g Ancef was administered prior to the incision by anesthesia staff as well as 1 g IV TXA. First exsanguinated the left lower extremity with a Esmarch bandage. Tourniquetwas inflated to 250 mmHg which remained elevated for approximately 45 minutes. Esmarch was removed. I planned a standardmidline approach to the left knee approximately 15 cm in length. Skin was sharply incised with a 10blade scalpeldeveloping full-thickness layers down to the retinaculum. Layers were developedidentifying the VMO. I then planned a standard medial parapatellar arthrotomy performed in flexion. The anterior horn of the medial meniscus was released. Hoffa's fat pad was then released. I then everted the patella in extension and brought the knee into 90 degrees of flexion. The anterior horn of the lateral meniscus was then released. The ACL was split in its mid substance with a 10 blade. We then brought the knee back into extension. Patella appeared to be minimally degenerative with grade I-II chondromalacia and was left bridgeport. I then placed pins in the metaphyseal distal femur medial to lateral for the Cristopher arrays. In similar fashion, I made a 2 cm incision approximately a handsbreadth distal to the tibial tubercle along the medial aspect of the tibia,drilling 2 bicortical pins for the tibial array. The knee was brought into flexion. The patella was subluxed laterally but not everted. Medial lateral retractors were placed. We then utilized the Keemotion software to confirm our planned surgical procedure and oriented with the patient's osseous anatomy. Allchecks with the Keemotion system were confirmed. Patient had a significant fixed varus deformity after performing stress examination utilizing the Keemotion software. We elected to place the tibial baseplate in 3 degrees of varus to allow for appropriate balancing. Sawblade was then brought in. I first started with the tibial cut, ensuring protection of the MCL and patellar tendon. A tibial wafer was then excised. I then proceeded to make the posterior femoral, anterior, anterior chamfer cuts with the same blade. Ligaments were protected with [employer] retractors. Sawbladewas then exchanged to perform the distal femoral and posterior chamfer cuts. The robot was then removed from the surgical field. Remaining loose bone and meniscus was excised carefully. Posterior osteophytes were removed from the distal femur with a curved osteotome and rongeur. Trial components were then placed. Balance was excellent in both extension and 90 degrees flexion with 11 mm polyethylene trial.. No mid flexion instability was apparent. Tracking was excellent. We then marked for tibial baseplate. Distal femoral pegs were drilled. Tibial keel was punched. Trials were removed. Periarticular block was administered. The wound was copiously irrigated with normal saline solution. Betadine solution was irrigated into the wound and the wound edges. Tourniquet was deflated. Hemostasis was excellent. An additional 1 g TXA was administered IV. Press-fit components were placed with excellent pullout strength. I trialed the 11 mm polyethylene which achieved excellent range of motion and balance. I selected a size 11 mm polyethylene which was placed and impactedper ward aide recommendations. Final components appeared very well balanced withexcellent range of motion. There was no significant remaining flexion contracture. The wound was copiously irrigated with normal saline solution. Capsule was closed watertight with #1 strata fix barbed suture. Deeper bursal layer was reapproximated with 0 Vicryl suture. Dermis was reapproximated buried interrupted 2-0 Vicryl suture. Skin was finally reapproximated edel. Patient tolerated the procedure well without apparent complication. He was safely awakened in the operative suite, transferred to his hospital bed and subsequently to PACU in stable condition. Need for skilled geriatric nurse assistant: Yoana Lion PA-C was critical to the outcome of thecase. During the course of the procedure the physician geriatric nurse assistant played a vitalrole. Her intimate knowledge of my stepsin the procedure aided in safe and expedient completion of the procedure. The PA played a vital role in positioning particularly in obtaining the appropriate positioning. The PA was also vital in theretraction of soft tissues during the exposure and projecting vital structures. The PA was also vital and protecting soft tissues during times of bony cuts. She also played a vital role in closure with my direct supervision. The PA was also important during reduction and dislocation of the joint and trials intraoperatively. Post Operative Plan: Patient will be placed in observation overnight. Anticipate discharge home tomorrow. Weightbearing: Range of motion and weightbearing as tolerated left lower extremity. Antibiotics: Ancef 2 g every 8 hours x 3 doses DVT Prophylaxis: Restart home Xarelto postoperative day #1 Pain medicine: Patient is on chronic scheduled MS Contin. Per pain management recommendations, we will continue with scheduled MS Contin and use oxycodone as needed. Tylenol and meloxicam as well. Vann: None Dressing: Maintain silver dressing x5 days X-Rays: 2-week x-rays in the office. Follow-up: 2 weeks in my office for staple removal Surgical Findings: Severe left knee osteoarthritis with fixed varus deformity Complications Complications: No Admit VTE Documentation VTE Present on Admission: No VTE Mechan Device Prophylaxis: SCD's and Thigh High BRITTANY Hose VTE Pharm Prophylaxis ordered?: Yes 08/09/25 7036 Cosigner Signature (if applicable): CC: Dr. Harshad Lima, DO; [facility]~ Signed [facility]10-16-2025 Radiology Diagnostic study note [facility] [address] [place] [address] Knee 1 or 2 Views MR#: [id number] Acct: [id number] Name: AGAPITO MESSER Rep #: [id number] : 1950 M 74 From: Leon Clancy MD PCP: [facility] Status: REG [facility] [place] Study:Knee 1 or 2 Views Date of Exam: Exam# [id number] Ordering Dr: Harshad Lima DO PROCEDURE: KNEE 1 OR 2 VIEWS 08/09/2025 REASON FOR EXAM: POST OP TOTAL KNEE TECHNIQUE: Procedure Code: RADK Modality: DX Procedure: KNEE 1 OR 2 VIEWS Laterality: Left knee COMPARISON: None FINDINGS: The patient is status post left total knee replacement. There is good alignment. Postoperative soft tissue changes. RAD/Knee 1 or 2 Views IMPRESSION: Status post left total knee replacement. There is good alignment. Postoperative soft tissue changes. Reading Location: [place] [address] CC: Dr. Harshad Lima DO; [facility] ~ Single Stayer Operator: Signed [facility]10-16-2025 Consult note [facility] Medical Records Department [address] [place] [address] Anesthesia Postop Eval I 08/09/25 1203 MR#: [id number] Acct: [id number] Name: AGAPITO MESSER Rep #:[id number] : 1950 74 From: Scott CERNA PCP: [facility] Status:REG [facility] [place] Y Race: C Location: [place] [address] Anesthesia: Postop Eval I Current Vital Signs Temperature: 97.6 F Pulse Rate: 99 Blood Pressure: 126/78 Respiratory Rate: 16 Pulse Ox: 94 Assessment Airway patent: Yes Spontaneous unlabored respirations: Yes nausea: No Vomiting: No Anesthesia Complication: No Fluid Hydration Crystalloid volume administer (ml): 1,800 Total IV fluid infused: 1,800 Progress Note Anesthesia document: Postop Eval 1 completed: Yes 08/09/25 1204 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> Date _ Scott Rodas Signature: Date CC: ~ Signed [facility]10-16-2025 Consult note Author Gorge Sal [facility] Note Date/Time August 09, 2025 9 :12am [facility] Medical Records Department [address] [place] [address] Pre-Anesthesia Evaluation 08/09/25904 MR#: [id number] Acct: [id number] Name: AGAPITO MESSER Rep #:[id number] : 1950 74 From: Gorge Peres PCP: PR Hospital Status:REG [facility]C Y Race: C Location: [place] [address] ASA Classification* ASA Classification ASA Classification: 2 Assessment & Plan Anesthesia* Anesthesia Assessment Anesthesia Assessment: Discussed sedation and/or anesthesia options, risks, benefits, and alternatives with patient/parents/legal guardian/POA. Questions invited. The patient/parents/legal guardian/POA seems to understand and agrees to proceedwith anesthesia plan. Reviewed the physical assessment, medical history, allergy history and patient home medications list prior to surgery/procedure/anesthetic and documented any changes. Performed airway and anesthesia risk assessments. Anesthesia Type Anesthesia Type: General, MAC, Spinal and Block History Source History Obtained from:: Patient and Chart Anesthesia Focused Assessment* Temperature: 97.6 F Pulse Rate: 84 Blood Pressure: 124/81 Respiratory Rate: 16 Pulse Ox: 98 Oxygen Delivery Method: Room Air Airway Assessment Mouth opens: >3 cm Mallampati Score: II Teeth Condition: Dentures (Edentulous) Neck Range of motion (ROM): Full ROM Labs Anesthesia Preop lab: CBC WBC, (4.4-11.0) 9.0 K/mm3 02/06/25, 12:47 RBC, (4.6-6.2) 4.73 M/mm3 02/06/25, 12:47 Hgb, (13.0-16.5) 15.2 g/dL 02/06/25, 12:47 Hct, (40-54) 44.3 % 02/06/25, 12:47 Plt Count, (150-450) 216 K/mm3 02/06/25, 12:47 CHEMISTRY Potassium, (3.3-5.1) 4.7 mmol/L 02/06/25, 12:47 Sodium, (133-145) 136 mmol/L 02/06/25, 12:47 BUN, (4-19) 17 mg/dL 02/06/25, 12:47 Creatinine, (0.70-1.20) 1.01 mg/dL 02/06/25, 12:47 Glucose, (70-99) 150 mg/dL H 02/06/25, 12:47 POC Glucose, (74-106) 132 mg/dL H 02/19/25, 05:49 COAG Pre-Assessment Diagnosis/Proposed Procedure Planned Operative Procedure(s): (L) Total Knee Replacement Robotic Arm Radha Anesthesia History Anesthesia History - getter operator: Anesthesia History - getter operator Hx Hospitalization No 07/11/25 14:21 Any Problems With Anesthesia No 07/11/25 14:21 Cholinesterase deficiency No 07/11/25 14:21 You/Your Family Experience No 07/11/25 14:21 fever (hyperthermia) with Relationship Recent Exposure to Contagious No 08/09/25 08:44 Disease Does patient have nerve No 07/11/25 14:21 stimulator Patient instructed to have device shut off --Does patient have Pacemaker No 08/09/25 08:44 or ICD? When Was Last Pacemaker Check QUESTION #4 FULL TEXT: You/Your Family Experience fever (hyperthermia) with Anesthesia Last Oral Intake Last Oral intake: Last Oral Intake NPO since 05:00 08/09/25 08:44 Meds taken in AM with sips of No 08/09/25 08:44 water? Meds patient instructed to take am of surgery PONV PONV - getter operator: PONV - getter operator Female No 07/11/25 14:21 HX of Motion Sickness No 07/11/25 14:21 HX of N/V After Surgery No 07/11/25 14:21 Non-Smoker No 07/11/25 14:21 Duration of Surgery greater Yes 07/11/25 14:21 than 60 minutes Number of Risk Factors 1 07/11/25 14:21 PONV Score Low Risk 07/11/25 14:21 Height & Weight Height & Weight: Anesthesia: Height & Weight Height 6 ft 1 in 08/09/25 08:44 Weight: 84 kg 08/09/25 08:44 Body Mass Index (BMI) 24.4 08/09/25 08:44 Respiratory Assessment Respiratory Assessment - getter operator: Respiratory Tract Infection Hx - getter operator Hx Respiratory Tract Infection No 07/11/25 14:21 STOP Sleep Apnea STOP Sleep Apnea - getter operator: STOP Sleep Apnea - getter operator Hx Hypertension No 07/11/25 14:21 Hx Sleep [...] Tobacco Use History Tobacco Use History - getter operator: Tobacco Use History - getter operator Tobacco Use Cigarettes 09/04/20 14:54 Smoking Status Current every day smoker 07/11/25 14:21 Hx Tobacco Use Yes 07/11/25 14:21 Years Smoking Packs Smoked per Day 0.5 07/11/25 14:21 Smoking Cessation Date was within the last 15 years Hx Smoking Cessation Date Hx Smoking Cessation Counseling Hematologic Medial History Hematologic Hx - getter operator: 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 Specify any problems Hx of Preganancy in last 3 N/A 07/11/25 14:21 Months Nurse Filling Out Transfusion NBUCHER 07/11/25 14:21 & Questions: Date: 07/11/25 07/11/25 14:21 Time: 14:23 07/11/25 14:21 Patient unable to answer at this time (ie. confused, unrespo /Reproduction History /Reproductive History - getter operator: /Reproductive Hx- getter operator Hx Now No 07/11/25 14:21 Gestational Age (in weeks): EDC: Hx Hx Para Hx Section SAB No 07/11/25 14:21 Active Medications Active Medications: Current Medications Generic Name Dose Route Start Last Admin Trade Name Freq PRN Reason Stop Dose Admin Acetaminophen 1,000 mg 08/09/25 10:15 08/09/25 08:48 Acetaminophen 500 Mg Tablet PO 08/09/25 10:16 1,000 mg PREOP ONE Administration Celecoxib 400 mg 08/09/25 10:15 08/09/25 08:49 Celecoxib 200 Mg Capsule PO 08/09/25 10:16 Not Given PREOP ONE Gabapentin 600 mg 08/09/25 10:15 08/09/25 08:48 Gabapentin 600 Mg Tablet PO 08/09/25 10:16 600 mg PREOP ONE Administration Lactated Ringer's 1,000 mls @ 999 mls/hr 08/09/25 10:15 08/09/25 08:48 IV 08/09/25 11:15 999 mls/hr .Q1H1M GEORGETTE Administration Cefazolin Sodium 2 gm/ Sodium 110 mls @ 150 mls/hr 08/09/25 10:15 Chloride IV 08/09/25 10:58 INTRAOP ONE Tranexamic Acid 1,000 mg/ 110 mls @ 660 mls/hr 08/09/25 10:15 Sodium Chloride IV 08/09/25 10:24 INTRAOP ONE Tranexamic Acid 1,000 mg/ 110 mls @ 660 mls/hr 08/09/25 11:15 Sodium Chloride IV 08/09/25 11:24 INTRAOP ONE Lactated Ringer's 1,000 mls @ 999 mls/hr 08/09/25 11:15 IV 08/09/25 12:15 .Q1H1M GEORGETTE Lactated Ringer's 1,000 mls @ 125 mls/hr 08/09/25 12:15 IV 08/09/25 20:14 .Q8H GEORGETTE Magnesium Sulfate 1 gm/ 102 mls @ 408 mls/hr 08/09/25 10:15 08/09/25 08:48 Dextrose IV 08/09/25 10:29 408 mls/hr PREOP ONE Administration Insulin Human Lispro 1 - 6 unit 08/09/25 10:15 Insulin Lispro 100 Unit/Ml Insuln.Pen SC 08/09/25 16:15 Q4H PRN PRN BG>/= 180, SEE PROTOCOL Protocol PFSH Medical History Wears dentures Wears glasses Anxiety Depression History of steroid therapy Ambulates with cane History of renal disease Fatty liver Migraine headache Dietary restriction Gastric reflux Smoker History of echocardiogram History of stress test Traumatic amputation of ear Finger amputation, traumatic Enlarged prostate Back pain Arthritis Kidney stones Home Medications ?Medication ?Instructions ?Recorded ?Last Taken ?Type alfuzosin 10 mg tablet,extended 10 mg PO DAILY KIDNEYS 08/05/17 02/18/25 History release 24 hr gabapentin 300 mg capsule 300 mg PO BIDCM NERVE PAIN 1 02/18/25 History glimepiride 4 mg tablet 4 mg PO DAILY DIABETES 08/0502/18/25 History meloxicam 15 mg tablet 15 mg PO DAILY PAIN 08/05/17 02/15/25 History fish oil-dha-epa 1,200 mg-144 1 cap PO DAILY SUPPLEMEN T 09/04/20 02/15/25 History mg-216 mg capsule morphine 15 mg tablet,extended 15 mg PO TID PAIN 09/0402/18/25 History release ondansetron 4 mg disintegrating 4 mg PO Q8H PRN PRN Na usea #10 tabs 09/15/22 Unknown Rx tablet aspirin 81 mg tablet,delayed 81 mg PO QDAY HEART HEALT H 12/18/24 02/15/25 History release (Adult Aspirin Regimen) cholecalciferol (vitamin D3) 50 50 mcg PO QDAY SUPPLEM ENT 12/18/24 02/18/25 History mcg (2,000 unit) capsule empagliflozin 25 mg tablet 25 mg PO QDAY DIABETES 11/2602/15/25 History hydroxyzine pamoate 25 mg capsule 25 mg PO QDAY PRN an xiety 12/18/24 Unknown History docusate sodium 100 mg capsule 100 mg PO BID STOOL SOF TENER 02/14/25 02/18/25 H istory (Colace) psyllium husk 3.4 gram/5.4 gram 1 tbsp PO DAILY SUPPLE MENT 02/14/25 02/18/25 History oral powder (Metamucil) acetaminophen 500 mg/15 mL oral 500 mg PO Q4H PRN pain 02/19/25 02/18/25 History liquid denosumab 60 mg/mL subcutaneous 60 mg subcut QMONTH SAVANNAH NE DENSITY 07/11/25 Unknown History syringe (Prolia) mecobalamin (vitamin B12) 2,500 2,500 mcg PO DAILY SUP PLEMENT 07/11/25 Unknown History mcg chewable tablet pantoprazole 40 mg tablet,delayed 40 mg PO DAILY GERD 07/11/25 Unknown History release Allergy/AdvReac Type Severity Reaction Status Date / Time hydrocodone (From Vicodin) Allergy Rash Verified 08/09/25 08:12 celecoxib (From Celebrex) AdvReac goofy Verified 08/09/25 08:12 Surgical History History of esophagogastroduodenoscopy (EGD) History of rotator cuff surgery H/O lithotripsy Social History Smoking Status: Current every day smoker tobacco type: cigarettes alcohol intake: never substance use type: does not use Review of Systems (Anesthesia) ROS Narrative System reviewed and no additional complaints, except as documented. 08/09/25911 <Electronically signed by Gorge Sal MD> Date _ [facility]: Date CC: ~ Signed [facility] Work Phone: [phone] Consult note [facility] Medical Records Department [address] [place] [address] Pre-Anesthesia Evaluation 08/09/25904 MR#: [id number] Acct: [id number] Name: AGAPITO MESSER Rep #:[id number] : 1950 74 From: Gorge Peres PCP: PR Hospital Status:REG [facility] Y Race: C Location: [place] [address] ASA Classification* ASA Classification ASA Classification: 2 Assessment & Plan Anesthesia* Anesthesia Assessment Anesthesia Assessment: Discussed sedation and/or anesthesia options, risks, benefits, and alternatives with patient/parents/legal guardian/POA. Questions invited. The patient/parents/legal guardian/POA seems to understand and agrees to proceedwith anesthesia plan. Reviewed the physical assessment, medical history, allergy history and patient home medications list prior to surgery/procedure/anesthetic and documented any changes. Performed airway and anesthesia risk assessments. Anesthesia Type Anesthesia Type: General, MAC, Spinal and Block History Source History Obtained from:: Patient and Chart Anesthesia Focused Assessment* Temperature: 97.6 F Pulse Rate: 84 Blood Pressure: 124/81 Respiratory Rate: 16 Pulse Ox: 98 Oxygen Delivery Method: Room Air Airway Assessment Mouth opens: >3 cm Mallampati Score: II Teeth Condition: Dentures (Edentulous) Neck Range of motion (ROM): Full ROM Labs Anesthesia Preop lab: CBC WBC, (4.4-11.0) 9.0 K/mm3 02/06/25, 12:47 RBC, (4.6-6.2) 4.73 M/mm3 02/06/25, 12:47 Hgb, (13.0-16.5) 15.2 g/dL 02/06/25, 12:47 Hct, (40-54) 44.3 % 02/06/25, 12:47 Plt Count, (150-450) 216 K/mm3 02/06/25, 12:47 CHEMISTRY Potassium, (3.3-5.1) 4.7 mmol/L 02/06/25, 12:47 Sodium, (133-145) 136 mmol/L 02/06/25, 12:47 BUN, (4-19) 17 mg/dL 02/06/25, 12:47 Creatinine, (0.70-1.20) 1.01 mg/dL 02/06/25, 12:47 Glucose, (70-99) 150 mg/dL H 02/06/25, 12:47 POC Glucose, (74-106) 132 mg/dL H 02/19/25, 05:49 COAG Pre-Assessment Diagnosis/Proposed Procedure Planned Operative Procedure(s): (L) Total Knee Replacement Robotic Arm Radha Anesthesia History Anesthesia History - getter operator: Anesthesia History - getter operator Hx Hospitalization No 07/11/25 14:21 Any Problems With Anesthesia No 07/11/25 14:21 Cholinesterase deficiency No 07/11/25 14:21 You/Your Family Experience No 07/11/25 14:21 fever (hyperthermia) with Relationship Recent Exposure to Contagious No 08/09/25 08:44 Disease Does patient have nerve No 07/11/25 14:21 stimulator Patient instructed to have device shut off --Does patient have Pacemaker No 08/09/25 08:44 or ICD? When Was Last Pacemaker Check QUESTION #4 FULL TEXT: You/Your Family Experience fever (hyperthermia) with Anesthesia Last Oral Intake Last Oral intake: Last Oral Intake NPO since 05:00 08/09/25 08:44 Meds taken in AM with sips of No 08/09/25 08:44 water? Meds patient instructed to take am of surgery PONV PONV - getter operator: PONV - getter operator Female No 07/11/25 14:21 HX of Motion Sickness No 07/11/25 14:21 HX of N/V After Surgery No 07/11/25 14:21 Non-Smoker No 07/11/25 14:21 Duration of Surgery greater Yes 07/11/25 14:21 than 60 minutes Number of Risk Factors 1 07/11/25 14:21 PONV Score Low Risk 07/11/25 14:21 Height & Weight Height & Weight: Anesthesia: Height & Weight Height 6 ft 1 in 08/09/25 08:44 Weight: 84 kg 08/09/25 08:44 Body Mass Index (BMI) 24.4 08/09/25 08:44 Respiratory Assessment Respiratory Assessment - getter operator: Respiratory Tract Infection Hx - getter operator Hx Respiratory Tract Infection No 07/11/25 14:21 STOP Sleep Apnea STOP Sleep Apnea - getter operator: STOP Sleep Apnea - getter operator Hx Hypertension No 07/11/25 14:21 Hx Sleep [...] than talking or can be heard through closeddoors)? 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 Specify any problems Hx of Preganancy in last 3 N/A 07/11/25 14:21 Months Nurse Filling Out Transfusion NBUCHER 07/11/25 14:21 & Questions: Date: 07/11/25 07/11/25 14:21 Time: 14:23 07/11/25 14:21 Patient unable to answer at this time (ie. confused, unrespo /Reproduction History /Reproductive History - getter operator: /Reproductive Hx- getter operator Hx Now No 07/11/25 14:21 Gestational Age (in weeks): EDC: Hx Hx Para Hx Section SAB No 07/11/25 14:21 Active Medications Active Medications: Current Medications Generic Name Dose Route Start Last Admin Trade Name Freq PRN Reason Stop Dose Admin Acetaminophen 1,000 mg 08/09/25 10:15 08/09/25 08:48 Acetaminophen 500 Mg Tablet PO 08/09/25 10:16 1,000 mg PREOP ONE Administration Celecoxib 400 mg 08/09/25 10:15 08/09/25 08:49 Celecoxib 200 Mg Capsule PO 08/09/25 10:16 Not Given PREOP ONE Gabapentin 600 mg 08/09/25 10:15 08/09/25 08:48 Gabapentin 600 Mg Tablet PO 08/09/25 10:16 600 mg PREOP ONE Administration Lactated Ringer's 1,000 mls @ 999 mls/hr 08/09/25 10:15 08/09/25 08:48 IV 08/09/25 11:15 999 mls/hr .Q1H1M GEORGETTE Administration Cefazolin Sodium 2 gm/ Sodium 110 mls @ 150 mls/hr 08/09/25 10:15 Chloride IV 08/09/25 10:58 INTRAOP ONE Tranexamic Acid 1,000 mg/ 110 mls @ 660 mls/hr 08/09/25 10:15 Sodium Chloride IV 08/09/25 10:24 INTRAOP ONE Tranexamic Acid 1,000 mg/ 110 mls @ 660 mls/hr 08/09/25 11:15 Sodium Chloride IV 08/09/25 11:24 INTRAOP ONE Lactated Ringer's 1,000 mls @ 999 mls/hr 08/09/25 11:15 IV 08/09/25 12:15 .Q1H1M GEORGETTE Lactated Ringer's 1,000 mls @ 125 mls/hr 08/09/25 12:15 IV 08/09/25 20:14 .Q8H GEORGETTE Magnesium Sulfate 1 gm/ 102 mls @ 408 mls/hr 08/09/25 10:15 08/09/25 08:48 Dextrose IV 08/09/25 10:29 408 mls/hr PREOP ONE Administration Insulin Human Lispro 1 - 6 unit 08/09/25 10:15 Insulin Lispro 100 Unit/Ml Insuln.Pen SC 08/09/25 16:15 Q4H PRN PRN BG>/= 180, SEE PROTOCOL Protocol PFSH Medical History Wears dentures Wears glasses Anxiety Depression History of steroid therapy Ambulates with cane History of renal disease Fatty liver Migraine headache Dietary restriction Gastric reflux Smoker History of echocardiogram History of stress test Traumatic amputation of ear Finger amputation, traumatic Enlarged prostate Back pain Arthritis Kidney stones Home Medications ?Medication ?Instructions ?Recorded ?Last Taken ?Type alfuzosin 10 mg tablet,extended 10 mg PO DAILY KIDNEYS 08/05/17 02/18/25 History release 24 hr gabapentin 300 mg capsule 300 mg PO BIDCM NERVE PAIN 1 02/18/25 History glimepiride 4 mg tablet 4 mg PO DAILY DIABETES 08/0502/18/25 History meloxicam 15 mg tablet 15 mg PO DAILY PAIN 08/05/17 02/15/25 History fish oil-dha-epa 1,200 mg-144 1 cap PO DAILY SUPPLEMEN T 09/04/20 02/15/25 History mg-216 mg capsule morphine 15 mg tablet,extended 15 mg PO TID PAIN 09/0402/18/25 History release ondansetron 4 mg disintegrating 4 mg PO Q8H PRN PRN Na usea #10 tabs 09/15/22 Unknown Rx tablet aspirin 81 mg tablet,delayed 81 mg PO QDAY HEART HEALT H 12/18/24 02/15/25 History release (Adult Aspirin Regimen) cholecalciferol (vitamin D3) 50 50 mcg PO QDAY SUPPLEM ENT 12/18/24 02/18/25 History mcg (2,000 unit) capsule empagliflozin 25 mg tablet 25 mg PO QDAY DIABETES /02/1602/15/25 History hydroxyzine pamoate 25 mg capsule 25 mg PO QDAY PRN an xiety 12/18/24 Unknown History docusate sodium 100 mg capsule 100 mg PO BID STOOL SOF TENER 02/14/25 02/18/25 H istory (Colace) psyllium husk 3.4 gram/5.4 gram 1 tbsp PO DAILY SUPPLE MENT 02/14/25 02/18/25 History oral powder (Metamucil) acetaminophen 500 mg/15 mL oral 500 mg PO Q4H PRN pain 02/19/25 02/18/25 History liquid denosumab 60 mg/mL subcutaneous 60 mg subcut QMONTH SAVANNAH NE DENSITY 07/11/25 Unknown History syringe (Prolia) mecobalamin (vitamin B12) 2,500 2,500 mcg PO DAILY SUP PLEMENT 07/11/25 Unknown History mcg chewable tablet pantoprazole 40 mg tablet,delayed 40 mg PO DAILY GERD 07/11/25 Unknown History release Allergy/AdvReac Type Severity Reaction Status Date / Time hydrocodone (From Vicodin) Allergy Rash Verified 08/09/25 08:12 celecoxib (From Celebrex) AdvReac goofy Verified 08/09/25 08:12 Surgical History History of esophagogastroduodenoscopy (EGD) History of rotator cuff surgery H/O lithotripsy Social History Smoking Status: Current every day smoker tobacco type: cigarettes alcohol intake: never substance use type: does not use Review of Systems (Anesthesia) ROS Narrative System reviewed and no additional complaints, except as documented. 08/09/25911 MD> Date _ Gorge Sal MD [facility] Signature: Date CC: ~ Signed [facility]04-28-2025 [facility] Medical Records Department [address] [place] [address] History Physical Exam 02/19/25 0645 MR#: [id number] Acct: [id number] Name: AGAPITO MESSER Rep #: [id number] : 1950 74 From: Tonio Friend PCP: PR Hospital Status:[facility] Location: [place] [address] HPI - General General Date of Admission: 02/19/25 Date of Service: 02/19/25 Chief Complaint: dysphagia HPI Narrative AGAPITO MESSER, is a 74 M who presents to the office today for establishment with [facility] for difficulty swallowing with a history having [...] exposure to questionable drinking water at [employer], asbestos and [employer] [place]. He reports some difficulty chewing due to [...] was told to repeat in 10 years. [facility] Medical History Wears partial dentures [...] diarrhea, dyspepsia, dysphagia, hitesh (more content not included)...[facility]03-28-2025 Procedure note [facility] Speech Pathology [address] [place] [address] Modified Barium Swallow Study MR#: [id number] Acct: [id number] Name: AGAPITO MESSER Rep #:[id number] : 1950 74 From: Kathryn Valentin, [facility]-RELIABILITY TECHNICIAN Modified Barium Swallow Patient Information Study Date: 01/19/25 Study Time: 12:20 Direct Billable Minutes: 92 Total Minutes procedure & reportin Diagnosis: Dysphagia R13.10 Referring Physician: Luz Bacon Reason for Referral: Assess swallow function, assess risk for aspiration, and determine recommendations for least restrictive diet textures and compensatory strategies to facilitate safe po intake. Medical History: Patient was referred by Luz Bacon CNP at [facility]. Pt was recently seen for OV to manage dysphagia w/ hx of 2 prior EGDs w/ Dr. Cheney dilation of esophageal strictures (08/2020, 02/2022). During most recent EGD, he was told he had erosive esophagitis. He had a recent EDon visit 12/03/24 for complaints of food getting [...] If liquid wash doesn't clear sensation of retention,he has to just wait. Carbonated liquid has regurgitated during liquid wash attempts (RELIABILITY TECHNICIAN recommended trying a warm liquid). PMH: Traumatic amputation of ear and finger, Back pain, Arthritis, Kidney stones, CKD stage III, Delayed gastric emptying, DM. Current Diet Ordered: Regular / Thin liquids Dentition: Natural Teeth and Missing Teeth Mental Status: WNL Respiratory Status: Oxygenating on Room Air Penetration-Aspiration Scale Penetration-Aspiration Scale: OBJECTIVE ASSESSMENT OF SWALLOW FUNCTION (QUANTITATIVE ? PER TRIAL): PENETRATION / ASPIRATION SCALE (WARD): [...] swallow: Result: 1= does not enter airway [place] Thick Liquid via small single sip: cup: [...] of greater than half of bolus Bolus Preparation/Mastication: Slow prolonged chewing/mashing with complete recollection Bolus Transport/Lingual Motion: Delayed initiation of tongue motion Oral Residue: Trace residue lining oral structures Pharyngeal Phase Initiation of Pharyngeal Swallow: Bolus head in pyriforms Soft Palate Elevation: Trace column of contrast/air between soft palate and pharyngeal wall Laryngeal Elevation: Partial superior movement thyroid cart/partial apprx aryt- epig petiole Anterior Hyoid Excursion: Partial anterior movement Epiglottic Movement: Complete inversion Laryngeal Vestibule Closure at Height of Swallow: Incomplete; narrow column of air/contrast in laryngeal vestibule Pharyngeal Stripping Wave: Present - diminished Pharyngoesophageal Segment Opening: Parital distension and partial duration; parital obstruction offlow Tongue Base Retraction: Narrow column of contrast between tongue base & post. pharyngeal wall Pharyngeal Residue: Trace residue within or on pharyngeal structures Esophageal Phase Esophageal Clearance: Esophageal retention Diagnosis/Impression Diagnosis: Mild-Moderate oropharyngeal dysphagia R13.12; Esophageal dysphagia R13.14 Impression: The oral phase is primarily marked by... -Premature posterior loss of >1/2 of liquid boluses to the pyriforms and even laryngeal vestibule with certain trials. -Delayed tongue motion for A-P transport. -Slow, but complete mastication. The pharyngeal phase is primarily marked by... -Delayed swallow onset. -Decreased airway closure due to decreased anterior hyoid excursion and laryngeal elevation. -Silent, trace post prandial aspiration of residues remaining in the laryngeal vestibule, likely thin liquid. Deep laryngeal penetration of thin liquids to thevocal folds with sips via tsp and sequential cup. Use of 3-second prep, no straws, and effortful swallows were all effective in reducing aspiration risk. Reflexive throat clear was effective in clearing trace barium on the vocal foldsfrom thin by tsp. The esophageal phase is primarily marked by... -Trace retention in UES. -Retention of cookie in the middle esophagus, which required 2 liquid washes to clear. Recommendations Diet: Regular Textures and Thin Liquids Comment: STOP if liquid wash doesn't clear sensation of retention and wait for esophagealclearance. Compensatory Strategies: Small Bites, Small Sips (3-second prep, Effortful swallows), No Straws, Slow Rate, Alternate bites/solids and sips/liquids (1-2 sips after each bite of solids), Sitting upright and Remain sitting upright for 30 minutes after PO intake (30-60min after meals) Recommend Repeat Modified Barium Swallow: TBD Need for Skilled Speech Therapy Services: Yes Comment: -Train the patient in use of strategies to decrease risk for aspiration and reflux aspiration. -Ongoing assessment of diet tolerance of recommended textures. -Train the patient in oropharyngeal exercise program to improve bolus control, swallow onset, and airway closure (lingual resistance, Henna, Effortful). Recommended Referrals: GI Consult (Continue to follow w/ OP GI for management ofdysphagia. Would NOT recommend barium esophagram due to aspiration risk.) Education Completed: 1. Described result of evaluation., 2. Pt understands evaluation & agrees with goals and treatment plan. and 7. Pt requires further education on strategies & risks. (Pt instructed in results and recommendations, would benefit from additional instruction re: no straws, 3-second prep as these were deemed beneficial to the patient upon further interpretation of the study.) Status Active ST Patient: Active Contact Information [facility] Speech Therapy:: Kathryn Montero M.A. CCC-RELIABILITY TECHNICIAN? Speech-Language Pathologist?? [facility] [address] [place] [address]? [email or web address]?? [phone] 01/19/25 Nestor Bautista CCC-RELIABILITY TECHNICIAN> Date/Time Kathryn Montero M.A. CCC-RELIABILITY TECHNICIAN Co-Signature Required for all Medicare patients Date/Time Co-Signature CC: ~ [facility]03-20-2025 Nuclear medicine Diagnostic study note [facility] [address] [place] [address] Gastric Emptying Study MR#: [id number] Acct: [id number] Name: AGAPITO MESSER Rep #: [id number] : 1950 M 74 From: Leon Clancy MD PCP: [facility] Hospital Status: REG CLI Study:Gastric Emptying Study Date of Exam: 01/11/25 Exam# [id number] Ordering Dr: Hunter Bacon [employer] INSTRUCTOR-C PROCEDURE: GASTRIC EMPTYING STUDY REASON FOR EXAM: [...] IMPRESSION: Normal gastric emptying examination. Reading Location: [facility] CC: MARIZA Bacon; [facility] ~ Single Stayer Operator: Signed [facility]03-11-2025 Radiology Diagnostic study note [facility] [address] [place] [address] Abdomen/Pelvis without Cont MR#: [id number] Acct: [id number] Name: AGAPITO MESSER Rep #: [id number] : 1950 M 74 From: Leon Clancy MD PCP: [facility] Status: REG CLI Study:Abdomen/Pelvis without Cont Date of Exa m: 01/02/25 Exam# [id number] Ordering Dr: Maude Wallace MD PROCEDURE: ABDOMEN/PELVIS [...] use of iterative reconstruction technique). Reading Location: [place] [address] CC: Dr. Rey Wallace MD; [facility] ~ Single Stayer Operator: Signed [facility]02-24-2025 Evaluation note* Diagnosis Onset Date Resolution Status Admit Date Delayed gastric emptying acute December 18, 2024 10:33am Dysphagia acute December 18, 2024 10:33am Esophageal stricture acute 2024 10:33am Reflux esophagitis acute 2024 10:33am Spondylolisthesis, lumbar region acute December 25, 2024 12:32pm Spondylosis of lumbar region without myelopathy or radiculopathy acute December 25, 2024 12:32pm [facility] Work Phone: 1(560) 643-838002-24-2025 Evaluation note* Diagnosis Onset Date Resolution Status [...] Reflux esophagitis acute February 19, 2025 5:15am [facility] Work Phone: 1(353) 310-514502-09-2025 Hospital Discharge instructions Patient Education 12/03/2024 10:13:46 [...] If your esophagus was blocked by an mlgm-kcs-jizlyme pill (such as a vitamin), avoid this [...] your stool (dark red or black color) 9405-2774 [employer]. [address] [place] [address], [place] [address]. All rights reserved. This information is not intended as a substitute for professional medical care. Always follow yourhealthcare professional's instructions. Follow Up Care 12/03/2024 08:45:07 With:CHENTE CASILLAS MD Address: [address] [place] [address] [facility] [place] [address]- When:2-4 days [facility] 02-09-2025 Gastroenterology Consult note Date of Service December 03, 2024 Reason for Consultation Concern for food impaction Referring Physician Dr. Aguirre History of Present Illness 74-year-old male with a history of anxiety, BPH, diabetes, fatty liver, hypertension, hyperlipidemia, TIA who was transferred from [place] ED where he presented with concern for for impaction. Patient was eating a small bite of steak at 430 this morning and began to have dysphagia and trouble swallowing tolerating secretions. he tried some Coke but this did not help. In the [place] ED, he received glucagon and Pepcid. He [...] underwent EGD last in 2018. His outpatient biology specimen technician is Dr. Garcia but patient states that [...] hypertension, hyperlipidemia, TIA who was transferred from [place] ED where he presented with concern for for impaction. Patient was eating a small bite of steak at 430 this morning and began to have dysphagia and trouble swallowing tolerating secretion. he tried some Coke but this did not help. . In the [place] ED, he received glucagon and Pepcid. He was then transferred here for GI evaluation. Patient is now symptomatically improved. He is tolerating secretions and oral liquids. He does have a history of peptic stricture for which he underwent EGD last in 2018. -Okay to discharge patient with close outpatient GI follow-up. Patient prefers to reestablish witha new biology specimen technician. Will follow-up for outpatient EGD with Dr. [...] Oral, qDay Allergies CeleBREX Abdominal pain Chantix [place] Hives Vicodin Wellbutrin Short of breath on [...] ANNETTE DIAZ MD on 12/03/2024 11:36 AM [facility] Emergency department Discharge summary Discharge Instructions Thank you for allowing [facility] to assist you with your healthcare needs. The following is importantdischarge information regarding your hospital visit. What to Do Next Instructions from Your Care Team No qualifying data available. Post Acute Orders No qualifying data available. You Need to Schedule the Following Appointments Follow Up with CHENTE CASILLAS MD When:Within 2-4 days Where:[address] [facility] [place] [address]- Allergies CeleBREX Abdominal pain Chantix [place] Hives Vicodin Wellbutrin Short of breath on [...] If your esophagus was blocked by an uzwr-xmj-umzhyop pill (such as a vitamin), avoid this [...] your stool (dark red or black color) 1744-2555 [employer]. [address] [place] [address]. All rights reserved. This information is not intended as a substitute for professional medical care. Always follow yourhealthcare professional's instructions. Additional Information VACCINATE! IT SAVES LIVES! Members of the community who have not yet received the COVID-19 vaccine and would like to receive it can visit one of [facility] vaccine clinics. There are many vaccine clinic locations within the [facility]. For locations and available times, please visit www.[email or web address].[place].gov/. It is important to note that some COVID mobile vaccine clinics are held outdoors and may be canceled in rainy or stormy conditions. To learn more about pediatric vaccinations (ages 5-11), we invite you to visit the [facility] webpage. https://www.[employer]ters.org/pages/7250-Wecib-Rqzewqultiq-Zkuxdffqsv-Qlwsh-Egl stions.htmlTo learn more about the COVID-19 vaccine, we invite you to visit the CDC website for a list of frequently asked questions. https://www.cdc.gov/coronavirus/2019-ncov/vaccines/faq.html [facility] Patient Portal Access Instructions: Stay connected with your healthcare team and access your personal medical information anytime with the [facility] Patient Portal. If you would like a full copy of your medical records please contact the [facility] Medical Records Department Wednesday through Wednesday between 8a.m. and 4:30p.m. Please follow the directions below to access the portal: 1.Access the email account you provided upon registration to the hospital.2.Look for an invitation email from [facility].3.Open the email and access the invitation link: Accept Invitation to [facility]4.Fill in the required morris to create your account. Sign into [email or web address] with your username and password that you [...] you will allow to register on the [employer] Patient Portal for access to your information. You can also access the [facility] Patient Portal on the [employer] Grid. Simply click on Health Records under myTomorrows and then click on the [employer] logo. HOW TO SAFELY DISPOSE OF PRESCRIPTION [...] Call your local pharmacy or go to [email or web address] to find one close to you.3.Make use of household items: Use cat litter or old coffee grounds to dispose medications if other options arenot available. Mix your drugs with these household products, seal them in an airtight container andthrow it into the garbage. Call [facility]: [phone] to be sure your drugs can be [...] am aware that I should contactmy doctor. 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 Signature: Date/Time: Relationship to Patient: Witness Name/Signature: Date/Time: [facility]-69-9734 Emergency department Discharge summary Discharge Instructions Thank [...] 2-4 days Where:[address] [facility] [place] [address]- Allergies CeleBREX Abdominal pain Chantix [place] Hives Vicodin Wellbutrin Short of breath on [...] If your esophagus was blocked by an goot-vrk-rpenqmx pill (such as a vitamin), avoid this [...] your stool (dark red or black color) 5195-4313 [employer]. [address] [place] [address]. All rights reserved. This information is not intended as a substitute for professional medical care. Always follow yourhealthcare professional's instructions. Additional Information VACCINATE! IT SAVES LIVES! Members of the community who have not yet received the COVID-19 vaccine and would like to receive it can visit one of [facility] vaccine clinics. There are many vaccine clinic locations within the [facility]. For locations and available times, please visit www.[email or web address].[place].gov/. It is important to note that some COVID mobile vaccine clinics are held outdoors and may be canceled in rainy or stormy conditions. To learn more about pediatric vaccinations (ages 5-11), we invite you to visit the [facility] webpage. https://www.[facility].org/pages/7602-Ndzew-Zrmflvtaeqc-Zxxbmwrbak-Zxsfc-Luo stions.htmlTo learn more about the COVID-19 vaccine, we invite you to visit the CDC website for a list of frequently asked questions. https://www.cdc.gov/coronavirus/2019-ncov/vaccines/faq.html [facility] Patient Portal Access Instructions: Stay connected with your healthcare team and access your personal medical information anytime with the [employer] [facility] Patient Portal. If you would like a full copy of your medical records please contact the [facility] Medical Records Department Wednesday through Wednesday between 8a.m. and 4:30p.m. Please follow the directions below to access the portal: 1.Access the email account you provided upon registration to the [facility].2.Look for an invitation email from [facility].3.Open the email and access the invitation link: Accept Invitation to [facility]4.Fill in the required morris to create your account. Sign into [email or web address] with your username and password that you [...] you will allow to register on the [facility] Patient Portal for access to your information. You can also access the [facility] Patient Portal on the [employer] Grid. Simply click on Health Records under myTomorrows and then click on the [employer] logo. HOW TO SAFELY DISPOSE OF PRESCRIPTION [...] Call your local pharmacy or go to http://HapBoo.Traffic Labs/[email or web address] to find one close to you.3.Make use of household items: Use cat litter or old coffee grounds to dispose medications if other options arenot available. Mix your drugs with these household products, seal them in an airtight container andthrow it into the garbage. Call [facility]: [phone] to be sure your drugs can be [...] am aware that I should contactmy doctor. 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 Signature: Date/Time: Relationship to Patient: Witness Name/Signature: Date/Time: Shirlene [id number] Emergency department Discharge summary Discharge Instructions Thank [...] CHENTE CASILLAS MD When:Within 2-4 days Where:[address] [facility] [place] [address]- Allergies CeleBREX Abdominal pain Chantix [place] Hives Vicodin Wellbutrin Short of breath on [...] If your esophagus was blocked by an cowd-sbd-ggkubxx pill (such as a vitamin), avoid this [...] your stool (dark red or black color) 8198-1896 [employer]. [address] [place] [address]. All rights reserved. This information is not intended as a substitute for professional medical care. Always follow yourhealthcare professional's instructions. Additional Information VACCINATE! IT SAVES LIVES! Members of the community who have not yet received the COVID-19 vaccine and would like to receive it can visit one of [facility] vaccine clinics. There are many vaccine clinic locations within the [facility]. For locations and available times, please visit www.gettheshot.coronavirus.[place].gov/. It is important to note that some COVID mobile vaccine clinics are held outdoors and may be canceled in rainy or stormy conditions. To learn more about pediatric vaccinations (ages 5-11), we invite you to visit the [facility] webpage. https://www.[facility].org/pages/1384-Sntxx-Lspmcdozsva-Iqgmycoiug-Ojmmt-Cjs stions.htmlTo learn more about the COVID-19 vaccine, we invite you to visit the CDC website for a list of frequently asked questions. https://www.cdc.gov/coronavirus/2019-ncov/vaccines/faq.html [facility] [employer] Patient Portal Access Instructions: Stay connected with your healthcare team and access your personal medical information anytime with the [facility] [employer] Patient Portal. If you would like a full copy of your medical records please contact the [facility] Medical Records Department Wednesday through Wednesday between 8a.m. and 4:30p.m. Please follow the directions below to access the portal: 1.Access the email account you provided upon registration to the [facility].2.Look for an invitation email from [facility].3.Open the email and access the invitation link: Accept Invitation to [facility]4.Fill in the required morris to create your account. Sign into [email or web address] with your username and password that you [...] you will allow to register on the [facility] [employer] Patient Portal for access to your information. You can also access the [facility] Patient Portal on the [employer] Grid. Simply click on Health Records under myTomorrows and then click on the Sh[employer]ene logo. [...] Call your local pharmacy or go to http://HapBoo.Traffic Labs/6G5Ub3s to find one close to you.3.Make use of household items: Use cat litter or old coffee grounds to dispose medications if other options arenot available. Mix your drugs with these household products, seal them in an airtight container andthrow it into the garbage. Call [facility]: [phone] to be sure your drugs can be [...] am aware that I should contactmy doctor. 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 Signature: Date/Time: Relationship to Patient: Witness Name/Signature: Date/Time: [facility]15-[facility]-2941 Telephone encounter Note* Telephone Encounter - Lluvia Roger MA - 11/15/2024 8:47 AM EST Patient given results and verbalized understanding of instructions given. Lluvia Roger MA [facility]01-22-2025 Miscellaneous Notes* Telephone Encounter - Lluvia Roger MA - 11/15/2024 8:47 AM EST Patient given results and verbalized understanding of instructions given. Lluvia Roger MA * Telephone Encounter - James Elizalde PA - 11/15/2024 7:12 AM EST Negative COVID flu RSV [facility] Telephone encounter Note * Telephone Encounter - James Elizalde PA - 11/15/2024 7:12 AM EST Negative COVID flu RSV [facility] Work Phone: 1(636) 474-250801-21-2025 NoteHNO ID: [id number] Author: TOMAS ONEAL PA-C Service: ? Author Type: Physician Job Site Superintendent Type: Progress Notes Filed: 11/14/2024 14:03 Note Text: Subjective Agapito Messer is a 74 year old male with a past medical history of hypertension, GERD, CKD, diabetes, depression, anxiety, and TIA who presents to express care today for evaluation of cough, nasal [...] which included preparing to see the patient, grep-vr-viao patient care, completing clinical documentation, performing a medically appropriate examination, counseling and educating the patient/family/caregiver, and ordering medications, tests, or procedures. [facility]01-21-2025 History of Present illness Narrative* Tomas Oneal PA-C - 11/14/2024 1:56 PM EST Subjective Agapito Messer is a 74 year old male with a past medical history of hypertension, GERD, CKD, diabetes, depression, anxiety, and TIA who presents to [facility] care today for evaluation of cough, [...] which included preparing to see the patient, nfkl-zq-alrx patient care, completing clinical documentation, performing a medically appropriate examination, counseling and educating the patient/family/caregiver, and ordering medications, tests,or procedures. Tomas Oneal PA-C documented in [facility]Cl[facility]01-[facility]-2025 Instructions* Patient Instructions* Tomas Oneal PA-C [...] - Decongestants: Topical spray: Oxymetazoline (Afrin Nasal [place]); limit to 3-4 days maximum Oral medication: [...] seen by a doctor. documented in [facility] encounterCl[facility]06-[facility]-2024 NoteHNO ID: [id number] Author: KUMAR OLIVARES APRN.GERIATRIC NURSE ASSISTANT Service: ? Author Type: Nurse Practitioner Type: [...] (COLACE) 100 mg capsule 100 mg. omega 3-khw-btg-fish oil (FISH OIL) 100-160-1,000 mg cap Take [...] ED for further ev (more content not included)...[facility] 04-10-2024 History of Present illness Narrative* Kumar Olivares APRN.[facility] - 04/10/2024 12:12 PM EDT Subjective [...] (COLACE) 100 mg capsule 100 mg. omega 5-rpx-agu-fish oil (FISH OIL) 100-160-1,000 mg cap Take [...] agrees with plan of care. Kumar Olivares APRN.GERIATRIC NURSE ASSISTANT documented in this encounterCl[facility]07-19-2023 Evaluation + Plan note Future Scheduled Tests Laboratory* Prostate Specific Antigen 05/12/23 * Thyroid Stimulating Hormone 05/12/23 * A1C Hemoglobin 05/12/23 * Lipid Profile 05/12/23 * Complete Metabolic Panel 05/12/23 [facility] 02-26-[address] Flores [facility] December 20, 2022 12:39pm Note Date/Time December 20, 2022 11:01am [facility] Medical Records Department [address] [place] [address] Emergency Department Summary 12/20/22 MR#: [id number] Acct: [id number] Name: AGAPITO MESSER Rep #:[id number] : [...] seen initially at the urgent care at [facility] here in [place], he states they did a COVID swab [...] rib pain, but no other chest pain. PFSH PFSH Medical History (Updated 12/20/22 @ 12:35 by [...] your Primary Care Provider. Call [facility] ([phone]) or report to the closest Emergency Room. Call 911 if necessary. 12/20/22 1239 <Electronically signed by Stiven Flores MD> Cosigner Signature (if applicable): CC: Dr. Isiah Lobo, ~ Signed [facility] Work Phone: 1(987) 410-467402-23-2023 Miscellaneous Notes* Telephone Encounter - Carmen Melara MA - 12/17/2022 8:26 AM EST Patient notified of results, verbalized understanding of instructions given. Carmen Melara MA * Telephone Encounter - Carmen Melara MA - 12/17/2022 8:24 AM EST ----- Message from Cornelia Aviles APRN.GERIATRIC NURSE ASSISTANT sent at 12/16/2022 8:09 PM EST ----- You tested negative for COVID and Influenza. If you were tested because you were having symptoms, please monitor these symptoms and for any worrisome symptoms, please call your primary care provider or schedule a visit with [facility]. Cornelia Aviles APRN.CNP documented in this encounterCl[facility]02-22-2023 History of Present illness Narrative* Addis oCelho PA-C - 12/16/2022 11:31 AM EST This note was created using NoteWriter. Subjective Agapito Mseser is a 72 year old male. HPI [...] (COLACE) 100 mg capsule 100 mg. omega 2-yws-irj-fish oil (FISH OIL) 100-160-1,000 mg cap Take [...] ROUTINE Addis Coelho PA-C documented in this encounterCl[facility]02-22-2023 Instructions* Patient Instructions* Addis Coelho PA-C [...] about your covid test. documented in this encounterCl[facility]02-22-2023 History of Present illness Narrative* Feli [...] 16, 2022 11:07 AM documented in this encounterCl[facility] Hospital11-25-2022 History of Present illness Narrative* Kumar Olivares APRN.GERIATRIC NURSE ASSISTANT - 09/18/2022 5:36 PM EST Subjective HPI Nontoxic-appearing male presents urgent care chief complaint lower back pain chills and transient nausea. Duration of symptoms 3 days. Associated symptoms listed above. Patient was seen at [facility] 3 days ago diagnosed with kidney stone. CT revealed a one 4 to 5 mm stone. Patient states was able to pass the stone yesterday [...] (COLACE) 100 mg capsule 100 mg. omega 4-jqj-yeo-fish oil (FISH OIL) 100-160-1,000 mg cap Take [...] of care. This note was generated using MovieLaLa software. It may contain errors in wording, punctuation, or spelling. Kumar Olivares APRN.DAVID documented in this encounterCl[facility] Hospital11-11-2022 Evaluation + Plan note Extracted from: Title:Clinical Document Author:YANI DOUGHERTY Date:09/04/22 [facility] ADMISSION HISTORY AN D PHYSICIAL CHIEF COMPLAINT: HISTORY OF PRESENT ILLNESS: REVIEW OF SYSTEMS: ACTIVE PROBLEMS: (29) Anxiety (58120145) Anxiety depression (659973251) Arthritis ([id number]) BMI 25.0-25.9,adult (4615955500) BPH (benign prostatic hyperplasia) (938003370) Chronic low back pain (700510272) Diabetes ([id number]-[id number]) Diabetes (671533063) Dysphagia (56304812) Fatigue (765646580) Fatty liver (8238825834) GERD - Gastro-esophageal reflux disease (0306930173) Heavy smoker (833927609) Hypertriglyceridemia (562106233) Kidney stones ([id number]) Medicare annual wellness visit, subsequent (833455238) Need for hepatitis C screening test (262031529) Need for influenza vaccination (587410387) Need for vaccination against Streptococcus pneumoniae (6134288747) Risk and functional assessment (311065356) Screening for colon cancer (329277834) Screening for prostate cancer (082872410) Shortness of breath (926958168) Sleep apnea (290911312) Statin intolerance (7308674474) TIA (transient ischemic attack) (962795069) Tobacco use (4533896547) Trouble in sleeping (175812172) Vitamin D deficiency (36560568) MEDICATIONS: Active Inpt Meds: None Active PRN Meds: None One Time Meds: None Active IV Meds: Lactated Ringers Infusion 1,000 mL (LR 1,000 mL) Start: 09/04/22 10:37:00 EST, Rate: 50 mL/hr, 09/04/22 10:37:00 EST ALLERGIES: (6) amoxicillin CeleBREX Chantix [place] Vicodin Wellbutrin FAMILY HISTORY: SOCIAL HISTORY: PHYSICAL EXAM: VITALS: BxwxrdPczgAMTnxyvOYEnZ5GFI4YqsfFw(kg) 09/04 11:05--------97.8--09/04 84.3 09/04 10:3936.2--504867HQ59/11 84.3 24 Hr Tmax: 36.2 at 09/04 10:39 36 Hr Tmax: 36.2 at 09/04 10:39 Vital Signs are the last 5 in the past 48 hours. Weights display the last 5 within 7 days. Initial Wt: 09/04 84.3 kg 185 lb Current Wt: 09/04 84.3 kg 185 lb GENERAL: HEENT: CARDIOVASCULAR: RESPIRATORY: ABDOMEN: EXREMETIES: NEUROLOGICAL: PSYCHIATRIC: LABS: 36hr Labs 09/04 1039 Blood Glucose, Ljvcyohni139R Blood Glucose, Zccarqzwe457I DIAGNOSTICS: IMPRESSION: PLAN: History and Physical Update I have examined the patient; reviewed the H&P and there are no changes to the H&P unless noted below. Future Appointments Appointment Date:11/13/2022 04:00:00 PM Scheduled Provider:ISIAH LOBO DO Location:[facility] Appointment Type:[facility] 11-11-2022 Hospital Discharge instructions Patient Education [...] before eating solid foods. General instructions Take vpgq-mih-cgfgmyt and prescription medicines only as told by [...] 01/31/2017 Document Revised: 01/09/2019 Document Reviewed: 01/31/2017 TORCH.sh Patient Education 2020 Amind. 09/04/2022 11:42:16 Esophageal Dilatation Esophageal Dilatation Esophageal [...] including vitamins, herbs, eye drops, creams, and zxpb-ljt-osobbxp medicines. Any problems you or family members [...] home. Follow these instructions at home: Take lhix-vuv-dlojdsr and prescription medicines only as told by [...] 12/02/2006 Document Revised: 09/23/2018 Document Reviewed: 08/16/2018 TORCH.sh Patient Education 2020 Amind. 09/04/2022 11:42:16 Esophageal Dilatation Esophageal Dilatation Esophageal [...] including vitamins, herbs, eye drops, creams, and iovv-avn-vmznyyk medicines. Any problems you or family members [...] home. Follow these instructions at home: Take ijdz-hbr-tnmwkqi and prescription medicines only as told by [...] 12/02/2006 Document Revised: 09/23/2018 Document Reviewed: 08/16/2018 TORCH.sh Patient Education 2020 Amind. Follow Up Care 08/27/2022 15:43:40 With:YANI DOUGHERTY Address: [address] [phone] Business (1) When: only if needed Comments:CALL DR. DOUGHERTY'S OFFICE IN A COULE OF WEEKS AND LET HIM KNOW HOW YOU ARE DOING. [facility] 11-11-2022 Summary of episode note Discharge Instructions Thank you for allowing [facility] to assist you with your healthcare needs. The following is importantdischarge information regarding your hospital visit. Your Care Team ISIAH LOBO DO, DR. What to do next Scheduled Follow-Up Appointments Appointment Type When With Where Contact InformationPC OV 11/13/2022 04:00 PM ISIAH BRISCOE [facility] [place] [address] [place] [address] Follow Up Appointments Follow Up with YANI DOUGHERTY When Only if needed Why: CALL DR. DOUGHERTY'S OFFICE IN A COULE OF WEEKS AND LET HIM KNOW HOW YOU ARE DOING. Where: [address] [facility] [address] [place] [phone] Business (1) Allergies CeleBREX (Abdominal pain) Chantix [place] (Hives) Vicodin Wellbutrin (Short of breath on [...] before eating solid foods. General instructions Take ckas-fsa-voweowd and prescription medicines only as told by [...] 01/31/2017 Document Revised: 01/09/2019 Document Reviewed: 01/31/2017 TORCH.sh Patient Education 2020 Amind. Esophageal Dilatation Esophageal dilatation, also called esophageal [...] including vitamins, herbs, eye drops, creams, and oywd-ydp-jjbodjd medicines. Any problems you or family members [...] home. Follow these instructions at home: Take gouf-qxu-bmnobqy and prescription medicines only as told by [...] 12/02/2006 Document Revised: 09/23/2018 Document Reviewed: 08/16/2018 TORCH.sh Patient Education 2020 TORCH.sh Inc. Esophageal Dilatation Esophageal dilatation, also called [...] including vitamins, herbs, eye drops, creams, and fgda-uup-fznpgbb medicines. Any problems you or family members [...] home. Follow these instructions at home: Take otup-ofs-ywriyad and prescription medicines only as told by [...] 12/02/2006 Document Revised: 09/23/2018 Document Reviewed: 08/16/2018 TORCH.sh Patient Education 2020 Amind. Additional Information VACCINATE! IT SAVES LIVES! Members of the community who have not yet received the COVID-19 vaccine and would like to receive it can visit one of [facility] vaccine clinics. There are many vaccine clinic locations within the [facility]. For locations and available times, please visit [email or web address] It is important to note that some COVID mobile vaccine clinics are held outdoors and may be canceled in rainy or stormy conditions. To learn more about pediatric vaccinations (ages 5-11), we invite you to visit the [facility] webpage. https://www.[email or web address]/pages/2169-Tacqd-Xixzgtopbeu-Jvtkjqacsj-Gkjwa-Idn stions.htmlTo learn more about the COVID-19 vaccine, we invite you to visit the [facility] website for a list of frequently asked questions. [email or web address] _[email or web address].pdf [facility] Patient Portal Access Instructions: Stay connected with your healthcare team and access your personal medical information anytime with the [facility] Patient Portal.If you would like a full copy of your medical records, please contact the [facility] Medical Records Department, Wednesday through Wednesday between 8a.m. and 4:30p.m. Please follow the directions below to access the portal: 1.Access the email account you provided upon registration to the [facility].2.Look for an invitation email from [facility].3.Open the email and access the invitation link: Accept Invitation to [facility]4.Fill in the required morris to create your account. Sign into [email or web address] with your username and password that you [...] you will allow to register on the [facility] Patient Portal for access to your information. You can also access the [facility] Patient Portal on the [employer] tayler. Simply click on Health Records under [employer] and then click on the [employer] logo. HOW TO SAFELY DISPOSE OF PRESCRIPTION [...] Call your local pharmacy or go to [email or web address] to find one close to you.3.Make use of household items: Use cat litter or old coffee grounds to dispose medications if other options arenot available. Mix your drugs with these household products, seal them in an airtight container andthrow it into the garbage. Call [facility]: [phone] to be sure your drugs can be [...] am aware that I should contactmy doctor. 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 Signature: Date/Time: Relationship to Patient: Witness Name/Signature: Date/Time: [facility]11-11-2022 Anesthesiology Consult note Patient: AGAPITO MESSER [...] by CHARLOTTE ESQUIVEL on 09/04/2022 11:26 AM [facility]11-11-2022 Note WALDRON ADMISSION HISTORY AND PHYSICIAL CHIEF COMPLAINT: HISTORY OF PRESENT ILLNESS: REVIEW OF SYSTEMS: ACTIVE PROBLEMS: (29) Anxiety (40804576) Anxiety depression (950440878) Arthritis ([id number]-PNR6M945F354) BMI 25.0-25.9,adult (0703871454) BPH (benign prostatic hyperplasia) (450782617) Chronic low back pain (917783263) Diabetes ([id number]-409H161F03Q4) Diabetes (922462286) Dysphagia (95869881) Fatigue (069099907) Fatty liver (4351404738) GERD - Gastro-esophageal reflux disease (9944245036) Heavy smoker (133896963) Hypertriglyceridemia (788514942) Kidney stones (996JE577-P910-6000-L5W5-5R28T39BEG59) Medicare annual wellness visit, subsequent (352294279) Need for hepatitis C screening test (893852639) Need for influenza vaccination (683712925) Need for vaccination against Streptococcus pneumoniae (8465205093) Risk and functional assessment (441031760) Screening for colon cancer (947802090) Screening for prostate cancer (854951081) Shortness of breath (309194483) Sleep apnea (970207694) Statin intolerance (4569771766) TIA (transient ischemic attack) (396944381) Tobacco use (7741393318) Trouble in sleeping (844235845) Vitamin D deficiency (37888292) MEDICATIONS: Active Inpt Meds: None Active PRN Meds: None One Time Meds: None Active IV Meds: Lactated Ringers Infusion 1,000 mL (LR 1,000 mL) Start: 09/04/22 10:37:00 EST, Rate: 50 mL/hr, 09/04/22 10:37:00 EST ALLERGIES: (6) amoxicillin CeleBREX Chantix Mills Vicodin Wellbutrin FAMILY HISTORY: SOCIAL HISTORY: PHYSICAL EXAM: VITALS: BsjgolEeveVWWewkpYZGqG6MQQ3HvzyAq(kg) 09/04 11:05--------97.8--09/04 84.3 09/04 10:3936.2--082986ZM77/11 84.3 24 Hr Tmax: 36.2 at 09/04 10:39 36 Hr Tmax: 36.2 at 09/04 10:39 Vital Signs are the last 5 in the past 48 hours. Weights display the last 5 within 7 days. Initial Wt: 09/04 84.3 kg 185 lb Current Wt: 09/04 84.3 kg 185 lb GENERAL: HEENT: CARDIOVASCULAR: RESPIRATORY: ABDOMEN: EXREMETIES: NEUROLOGICAL: PSYCHIATRIC: LABS: 36hr Labs 09/04 1039 Blood Glucose, Twxziiwcc139G Blood Glucose, Fpfhztwvl536H DIAGNOSTICS: IMPRESSION: PLAN: History and Physical Update I have examined the patient; reviewed the H&P and there are no changes to the H&P unless noted below. Digitally Signed by YANI DOUGHERTY MD on 09/04/2022 11:12 AM [facility]11-11-2022 Anesthesiology Consult note Patient: AGAPITO MESSER [...] Abdominal pain. Chantix- No reactions were documented. Mills- Hives. Vicodin- No reactions were documented. Wellbutrin- [...] Problem list: Medical Anxiety / SNOMED CT 74146025 / Confirmed Anxiety depression / SNOMED CT 646921720 / Confirmed Arthritis / SNOMED CT 06XP3881-8I0U-27W0-2K5C-TUF1V600M681 / Confirmed BPH (benign prostatic hyperplasia) / SNOMED CT 264068419 / Confirmed Chronic low back pain / SNOMED CT 430438201 / Confirmed Diabetes / SNOMED CT 1G2901ZI-635K-27P3-3Q6K-967G480I97H8 / Confirmed Diabetes / SNOMED CT 219209709 / Confirmed Dysphagia / SNOMED CT 74911867 / Confirmed Shortness of breath / SNOMED CT 892620529 / Confirmed Fatigue / SNOMED CT 561347306 / Confirmed Fatty liver / SNOMED CT 5495551307 / Confirmed GERD - Gastro-esophageal reflux disease / SNOMED CT 9267268545 / Confirmed Hypertriglyceridemia / SNOMED CT 479364707 / Confirmed Trouble in sleeping / SNOMED CT 313405594 / Confirmed Kidney stones / SNOMED CT 819UG840-J009-8587-W4V1-2H84V09WAO86 / Confirmed Need for influenza vaccination / SNOMED CT 584914046 / Confirmed BMI 25.0-25.9,adult / SNOMED CT 5341298859 / Confirmed Screening for colon cancer / SNOMED CT 269105059 / Confirmed Screening for prostate cancer / SNOMED CT 509338410 / Confirmed Medicare annual wellness visit, subsequent / SNOMED CT 248477653 / Confirmed Risk and functional assessment / SNOMED CT 677362540 / Confirmed Need for vaccination against Streptococcus pneumoniae / SNOMED CT 7143259764 / Confirmed Heavy smoker / SNOMED CT 030487763 / Confirmed Statin intolerance / SNOMED CT 6921171091 / Confirmed Tobacco use / SNOMED CT 8081908178 / Confirmed TIA (transient ischemic attack) / SNOMED CT 840324284 / Confirmed Need for hepatitis C screening test / SNOMED CT 687555605 / Confirmed Vitamin D deficiency / SNOMED CT 25503032 / Confirmed, Active Problems (29) Anxiety Anxiety [...] deficiency Histories Past Medical History: Active Diabetes ([id number]-943I252L39Q5) Arthritis (49FW1317-8X4R-83N3-2H7O-KJT2J508T977) BPH (benign prostatic hyperplasia) (743659122) TIA (transient ischemic attack) (166020941) Chronic low back pain (918071322) Family History: Asthma Sister Daughter Son Mother Heart disease Mother Son Substance abuse Son Alcohol abuse Father Son Mental illness Mother Depression Mother Sister Alzheimer's disease Mother Grandparent Osteoarthritis Mother Procedure history: Esophagogastroduodenoscopy (307679748) on 09/04/2022 at 71 Years. Esophagogastroduodenoscopy (853630144) on 11/05/2017 at 67 Years. Rotator cuff - right (75666326). Comments: 05/09/2019 18:35 EDT Hellen Baum LPN right Oral surgery ([id number]). Amputation (068619785). Comments: 05/09/2019 18:36 Hellen Maldonado LPN right middle finger, reattached and pinned Cystoscopy (38112319). Social History Social & Psychosocial Habits Alcohol [...] Resp Rate 14 br/min (SEP 04 10:39) JIT552 mmHg (SEP 04 10:39) DBP82 mmHg (SEP 04 10:39) BMI25.45 (SEP 04 11:00) Measurements from flowsheet : Measurements 09/04/2022 11:00 EST Height 182 cm Admission Weight 84.3 kg Osborne Body Weight 76.80 kg BSA Admission 2.06 Body Mass Index 25.45 kg/m2 09/04/2022 10:39 EST Height 182 cm Admission Weight 84.3 kg Osborne Body Weight 76.80 kg Admission Body Mass [...] Attendee SN - CAt - Role Performed 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 SN - CAt - Role Performed Antenna Design Engineer SN - CAt - Role Performed Mint Wafer Depositor 1 09/04/2022 11:05 EST SN - Proc [...] Height 182 cm Admission Weight 84.3 kg Osborne Body Weight 76.80 kg BSA Admission 2.06 [...] evident Teaching Method Explanation Preferred Written Language Citizen Of [place] Preferred Spoken Language Citizen Of [place] Information Given by Spouse Patient's Current Physicians [...] Height 182 cm Admission Weight 84.3 kg Osborne Body Weight 76.80 kg Admission Body Mass [...] no difficulties Skin Temperature Warm Skin Description [place], Dry Skin Integrity Intact Mucous Membrane Color [place] Skin Moisture General Dry IV Present Present [...] Cooperative Orientation Oriented x 4 Allergies Yes Rn Radiation Oncology On Yes Consent Form Signed Yes Patient [...] Void 09/04/2022 10:54 . Assessment and Plan [place] Society of Anesthesiologists (ASA) physical status classification: Class III. Anesthetic Preoperative Plan Premedication: None. Anesthetic technique: MAC. Induction: intravenously. Postoperative pain management: Per surgeon. Risks discussed: nausea, vomiting, headache, sore throat, dental injury, hypotension, allergic reaction, serious complications. Informed consent: signed by patient. Digitally Signed by CHARLOTTE ESQUIVEL on 09/04/2022 11:08 AM [facility]07-25-2022 Evaluation + Plan noteExtracted from: Title:Clinical Document Author:YANI DOUGHERTY Date:05/18/22 WALDRON ADMISSION HISTORY AN D PHYSICIAL CHIEF COMPLAINT: HISTORY OF PRESENT ILLNESS: REVIEW OF SYSTEMS: ACTIVE PROBLEMS: (23) Anxiety (28259722) Anxiety depression (526907752) Arthritis (65DD8213-0K9P-56N3-7T1J-IXK5I431Q035) BPH (benign prostatic hyperplasia) (660873891) Chronic low back pain (283990310) Diabetes (9R4013SG-703X-[id number]-980U051X45C9) Dysphagia (47773530) Fatigue (313174879) Fatty liver (4419419361) GERD - Gastro-esophageal reflux disease (0539483050) Heavy smoker (437425242) Hypertriglyceridemia (816019678) Kidney stones (115DT508-E357-9609-E2R0-3W46D60NWM92) Need for influenza vaccination (953040607) Need for vaccination against Streptococcus pneumoniae (4655522036) Screening for colon cancer (320615506) Shortness of breath (428672999) Sleep apnea (822514304) Statin intolerance (3957570734) TIA (transient ischemic attack) (264561733) Tobacco use (5622875058) Trouble in sleeping (446411673) Vitamin D deficiency (07433235) MEDICATIONS: Active Inpt Meds: None Active PRN Meds: None One Time Meds: None Active IV Meds: Lactated Ringers Infusion 1,000 mL (LR 1,000 mL) Start: 05/18/22 7:12:00 EDT, Rate: 50 mL/hr, 05/18/22 7:12:00 EDT ALLERGIES: (6) amoxicillin CeleBREX Chantix Mills Vicodin Wellbutrin FAMILY HISTORY: SOCIAL HISTORY: PHYSICAL EXAM: VITALS: NixfwxEvldBODoaqoUJFnK8BKW3QawuCy(kg) 05/18 07:1336.5126/5867460--AO44/25 84.1 05/18 84.1 24 Hr Tmax: 36.5 [...] LABS: 36hr Labs 05/18 0713 Blood Glucose, Tcbgkahgz858Z Blood Glucose, Urwtjhgjb064P DIAGNOSTICS: IMPRESSION: PLAN: History and Physical Update I have examined the patient; reviewed the H&P and there are no changes to the H&P unless noted below. Future Appointments Appointment Date:06/02/2022 09:00:00 AM Scheduled Provider:ISIAH LOBO DO Location:[facility] Appointment Type: Wellness Medicare Future Scheduled Tests Radiology* XR Chest 2 Views (PA & Lateral) 06/04/21 [facility] 07-25-2022 Hospital Discharge instructions Patient Education 05/18/2022 [...] before eating solid foods. General instructions Take cgoy-etb-sscnvif and prescription medicines only as told by [...] 01/31/2017 Document Revised: 01/09/2019 Document Reviewed: 01/31/2017 TORCH.sh Patient Education 2020 Amind. 05/18/2022 08:39:52 Colonoscopy, Adult, Care After, Mnbq-dh-Mbiz Colonoscopy, Adult, Care After This sheet gives [...] are soft and easy to digest. Take jfqi-vij-frwusve or prescription medicines only as told by [...] 11/13/2011 Document Revised: 08/11/2018 Document Reviewed: 07/05/2017 TORCH.sh Patient Education 2020 Amind. Follow Up Care 04/10/2022 07:45:00 With:YANI DOUGHERTY MD Address: [address] [phone] When: Unknown Comments:CALL DR DOUGHERTY WITH ANY QUESTIONS. GO TO THE EMERGENCY ROOM WITH ANY URGENT CONCERNS. [facility] 07-25-2022 Summary of episode note Discharge Instructions Thank you for allowing [facility] to assist you with your healthcare needs. The following is importantdischarge information regarding your hospital visit. Your Care Team ISIAH LOBO DO DR DOUGHERTY Your Diagnosis COLONOSCOPY What to do next Scheduled Follow-Up Appointments Appointment Type When With Where Contact InformationPC Wellness Medicare 06/02/2022 09:00 AM EDT ISIAH LOBO DO [address] [address] Follow Up Appointments Follow Up with YANI DOUGHERTY MD When Why: CALL DR DOUGHERTY WITH ANY QUESTIONS. GO TO THE EMERGENCY ROOM WITH ANY URGENT CONCERNS. Where: [address] [place] [phone] Allergies CeleBREX (Abdominal pain) Chantix [place] (Hives) Vicodin Wellbutrin (Short of breath on [...] before eating solid foods. General instructions Take wksg-hxo-sewpzzx and prescription medicines only as told by [...] 01/31/2017 Document Revised: 01/09/2019 Document Reviewed: 01/31/2017 TORCH.sh Patient Education 2020 Amind. Colonoscopy, Adult, Care After This sheet gives [...] are soft and easy to digest. Take hpac-bgg-ynvgczo or prescription medicines only as told by [...] 11/13/2011 Document Revised: 08/11/2018 Document Reviewed: 07/05/2017 [employer] Patient Education 2020 TORCH.sh Inc. Additional Information VACCINATE! IT SAVES LIVES! Members of the community who have not yet received the COVID-19 vaccine and would like to receive it can visit one of [facility] vaccine clinics. There are many vaccine clinic locations within the [facility]. For locations and available times, please visit [email or web address]/. It is important to note that some COVID mobile vaccine clinics are held outdoors and may be canceled in rainy or stormy conditions. To learn more about pediatric vaccinations (ages 5-11), we invite you to visit the [facility] webpage. https://www.[email or web address]/pages/0727-Wtdyz-Csfyxyixuyu-Qdebqscvke-Wipyt-Xqp stions.htmlTo learn more about the COVID-19 vaccine, we invite you to visit the [facility] website for a list of frequently asked questions. [email or web address]-[email or web address] _Asked-Questions.pdf [facility] [email or web address] Patient Portal Access Instructions: Stay connected with your healthcare team and access your personal medical information anytime with the [facility] Patient Portal.If you would like a full copy of your medical records, please contact the [facility] Medical Records Department, Wednesday through Wednesday between 8a.m. and 4:30p.m. Please follow the directions below to access the portal: 1.Access the email account you provided upon registration to the [facility].2.Look for an invitation email from [facility].3.Open the email and access the invitation link: Accept Invitation to [facility]4.Fill in the required morris to create your account. Sign into [email or web address] with your username and password that you [...] you will allow to register on the [facility] Patient Portal for access to your information. You can also access the [facility] Patient Portal on the [employer] Grid. Simply click on Health Records under [employer] and then click on the [employer] logo. HOW TO SAFELY DISPOSE OF PRESCRIPTION [...] Call your local pharmacy or go to [email or web address] to find one close to you.3.Make use of household items: Use cat litter or old coffee grounds to dispose medications if other options arenot available. Mix your drugs with these household products, seal them in an airtight container andthrow it into the garbage. Call [facility]: [phone] to be sure your drugs can be [...] Care, Care After Colonoscopy, Adult, Care After, Pmvw-wc-Gyty Medication Leaflets My discharge plan and instructions have been reviewed and explained to me and I,AGAPITO MESSER understand my current condition and have read and understand these discharge instructions. I have received a written copy of the plan/instructions. If I have questions, I am aware that I should contactmy doctor. 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 Signature: Date/Time: Relationship to Patient: Witness Name/Signature: Date/Time: [facility]07-25-2022 Anesthesiology Consult note Patient: AGAPITO MESSER [...] by CHARLOTTE ESQUIVEL on 05/18/2022 08:38 AM [facility]07-25-2022 Note WALDRON ADMISSION HISTORY AND PHYSICIAL CHIEF COMPLAINT: HISTORY OF PRESENT ILLNESS: REVIEW OF SYSTEMS: ACTIVE PROBLEMS: (23) Anxiety (68232252) Anxiety depression (622189770) Arthritis (34OB4321-9D2Q-92V2-4H4R-JBR7Q472F402) BPH (benign prostatic hyperplasia) (617592201) Chronic low back pain (205197013) Diabetes (5Q9666LF-481N-78C6-4B3R-397O363B90H5) Dysphagia (54466559) Fatigue (137466934) Fatty liver (9111224350) GERD - Gastro-esophageal reflux disease (8463383436) Heavy smoker (354431277) Hypertriglyceridemia (008758462) Kidney stones (818HX241-F463-9597-T6J7-5V62H40MFH42) Need for influenza vaccination (632029634) Need for vaccination against Streptococcus pneumoniae (4780798551) Screening for colon cancer (117608467) Shortness of breath (832699255) Sleep apnea (748300698) Statin intolerance (7726336275) TIA (transient ischemic attack) (051728432) Tobacco use (6262117854) Trouble in sleeping (346582652) Vitamin D deficiency (60724768) MEDICATIONS: Active Inpt Meds: None Active PRN Meds: None One Time Meds: None Active IV Meds: Lactated Ringers Infusion 1,000 mL (LR 1,000 mL) Start: 05/18/22 7:12:00 EDT, Rate: 50 mL/hr, 05/18/22 7:12:00 EDT ALLERGIES: (6) amoxicillin CeleBREX Chantix Mills Vicodin Wellbutrin FAMILY HISTORY: SOCIAL HISTORY: PHYSICAL EXAM: VITALS: ZtvtciJkfpHPYaqawWIJmJ6QNT3EnioSq(kg) 05/18 07:1336.5126/0907860--BH04/25 84.1 05/18 84.1 24 Hr Tmax: 36.5 [...] LABS: 36hr Labs 05/18 0713 Blood Glucose, Gpourhvhb542H Blood Glucose, Pizdtrrfx195M DIAGNOSTICS: IMPRESSION: PLAN: History and Physical Update I have examined the patient; reviewed the H&P and there are no changes to the H&P unless noted below. Digitally Signed by YANI DOUGHERTY MD on 05/18/2022 08:16 AM [facility]07-25-2022 Anesthesiology Consult note Patient: AGAPITO MESSER [...] Abdominal pain. Chantix- No reactions were documented. Mills- Hives. Vicodin- No reactions were documented. Wellbutrin- [...] Problem list: Medical Anxiety / SNOMED CT 13174938 / Confirmed Anxiety depression / SNOMED CT 921653685 / Confirmed Arthritis / SNOMED CT 28QS8568-2V9B-48Y0-1T8K-KOU6Z776G011 / Confirmed BPH (benign prostatic hyperplasia) / SNOMED CT 076634602 / Confirmed Chronic low back pain / SNOMED CT 799393531 / Confirmed Diabetes / SNOMED CT 3V0139RC-388Y-39O6-8L5E-895S270Q15H1 / Confirmed Dysphagia / SNOMED CT 86043922 / Confirmed Shortness of breath / SNOMED CT 226452160 / Confirmed Fatigue / SNOMED CT 139964670 / Confirmed Fatty liver / SNOMED CT 6338255637 / Confirmed GERD - Gastro-esophageal reflux disease / SNOMED CT 0882274168 / Confirmed Hypertriglyceridemia / SNOMED CT 229920681 / Confirmed Trouble in sleeping / SNOMED CT 141330056 / Confirmed Kidney stones / SNOMED CT 190WK956-B937-9687-G2V5-3Z02S28UYU75 / Confirmed Need for influenza vaccination / SNOMED CT 864544048 / Confirmed Screening for colon cancer / SNOMED CT 946160587 / Confirmed Need for vaccination against Streptococcus pneumoniae / SNOMED CT 8523593085 / Confirmed Heavy smoker / SNOMED CT 837057401 / Confirmed Statin intolerance / SNOMED CT 6396617085 / Confirmed Tobacco use / SNOMED CT 8388591117 / Confirmed TIA (transient ischemic attack) / SNOMED CT 877270466 / Confirmed Vitamin D deficiency / SNOMED CT 07444543 / Confirmed, Active Problems (23) Anxiety Anxiety [...] deficiency Histories Past Medical History: Active Diabetes ([id number]) Arthritis ([id number]) BPH (benign prostatic hyperplasia) (628264901) TIA (transient ischemic attack) (816355066) Chronic low back pain (705241748), HTN Family History: Asthma Sister Daughter Son Mother Heart disease Mother Son Substance abuse Son Alcohol abuse Father Son Mental illness Mother Depression Mother Sister Alzheimer's disease Mother Grandparent Osteoarthritis Mother Procedure history: Esophagogastroduodenoscopy (549293871) on 11/05/2017 at 67 Years. Rotator cuff - right (13160818). Comments: 05/09/2019 18:35 EDT Hellen Baum LPN right Oral surgery ([id number]). Amputation (256817473). Comments: 05/09/2019 18:36 EDT Hellen Baum LPN right middle finger, reattached and pinned Cystoscopy (13294221). Social History Social & Psychosocial Habits Alcohol [...] Admission Weight 84.1 kg Weight Method Stated Osborne Body Weight 77.62 kg General: Alert and [...] EDT Designated Person #1 We May Share [facility] Designated Person #1 We May Share [facility] Designated Person #1 Relationship Spouse Privacy Restrictions Requested None Height 182.9 cm Admission Weight 84.1 kg Weight Method Stated Osborne Body Weight 77.62 kg Status N/A Sensory [...] No further teaching needed Preferred Written Language Citizen Of [place] Preferred Spoken Language Citizen Of [place] Information Given by Patient Patient's Current Physicians [...] Shoes, Shorts, Undergarments . Assessment and Plan [place] [employer] of Anesthesiologists (ASA) physical status classification: Class III. Anesthetic Preoperative Plan Premedication: None. Anesthetic technique: MAC. Induction: intravenously. Postoperative pain management: Per surgeon. Risks discussed: nausea, vomiting, headache, sore throat, dental injury, hypotension, allergic reaction, serious complications. Informed consent: signed by patient. Digitally Signed by CHARLOTTE ESQUIVEL on 05/18/2022 07:38 AM Digitally Signed by CHARLOTTE ESQUIVEL on 05/18/2022 07:39 AM [facility]10-27-2021 Hospital Discharge instructions Patient Education 08/20/2021 [...] Redness, warmth or drainage from the skin [id number] [employer]. [address] [place] [address]. All rights reserved. This information is not intended as a substitute for professional medical care. Always follow yourhealthcare professional's instructions. Follow Up Care 08/20/2021 13:23:54 With:ISIAH LOBO DO Address: When:2-4 days [facility] Consult note Author Amy Collins [facility] Note Date/Time August 10, 2025 1 :45pm [facility] Medical Records Department [address] [place] [address] Counseling Note - Pharmacy 08/10/25 1343 MR#: [id number] Acct: [id number] Name: AGAPITO MESSER Rep #:[id number] : 1950 74 From: Amy Collins PCP: PR Hospital Status:ADM JULIETH Y Location: [place] [address] Pharmacy [facility] Counseling Pharmacy Service has performed discharge medication reconciliation and counseling for this patient. 1. ACETAMINOPHEN 1000MG PO Q8 2. ASPIRIN 81MG PO BID, THEN RESUME DAILY ON 09/07/25 3. OXYCODONE 5-10MG PO Q4-6H PRN PAIN (patient also on morphine SR, patient sayshe talked to PA about when to take vs oxycodone for breakthrough) The patient's discharge medication list was reviewed for discrepancies and discrepancies were resolved. The patient was counseled on the following discharge medications and changes in medications for homegoing were reviewed. The Reason for Use, instructions for use, and potential side effects were reviewed for all new medications. The patient's questions regarding all of their medications were answered. The patient was able to verbally demonstrate an understanding of their dischargemedications. Medications at Discharge Home Medications alfuzosin 10 mg tablet,extended release 24 hr 10 mg PO DAILY KIDNEYS 08/05/17 gabapentin 300 mg capsule 300 mg PO BIDCM NERVE PAIN 08/05/17 glimepiride 4 mg tablet 4 mg PO DAILY DIABETES 08/05/17 meloxicam 15 mg tablet 15 mg PO DAILY PAIN 08/05/17 fish oil-dha-epa 1,200 mg-144 mg-216 mg capsule 1 cap PO DAILY SUPPLEMENT 09/04/20 morphine 15 mg tablet,extended release 15 mg PO TID PAIN 09/04/20 ondansetron 4 mg disintegrating tablet 4 mg PO Q8H PRN PRN Nausea #10 tabs 09/15/22 aspirin 81 mg tablet,delayed release (Adult Aspirin Regimen) 81 mg PO QDAY [facility] 12/18/24 Held on 08/10/25. Instructions: Resume on 09/07/25. cholecalciferol (vitamin D3) 50 mcg (2,000 unit) capsule 50 mcg PO QDAY SUPPLEMENT 12/18/24 empagliflozin 25 mg tablet 25 mg PO QDAY DIABETES 12/18/24 hydroxyzine pamoate 25 mg capsule 25 mg PO QDAY PRN anxiety 12/18/24 docusate sodium 100 mg capsule (Colace) 100 mg PO BID STOOL SOFTENER 02/14/25 psyllium husk 3.4 gram/5.4 gram oral powder (Metamucil) 1 tbsp PO DAILY SUPPLEMENT 02/14/25 denosumab 60 mg/mL subcutaneous syringe (Prolia) 60 mg subcut QMONTH BONE DENSITY 07/11/25 mecobalamin (vitamin B12) 2,500 mcg chewable tablet 2,500 mcg PO DAILY SUPPLEMENT 07/11/25 pantoprazole 40 mg tablet,delayed release 40 mg PO DAILY GERD 07/11/25 acetaminophen 500 mg tablet 1,000 mg (2 x 500 mg) PO Q8H #180 tabs 08/10/25 aspirin 81 mg chewable tablet 81 mg PO BID 4 weeks #56 tabs 08/10/25 oxycodone 5 mg tablet 5 - 10 mg (1 - 2 x 5 mg) PO .q4-6hrs prn PRN Pain Score 4- 10 7 days #60 tabs 08/10/25 08/10/25 1345 <Electronically signed by Amy Collins> Date _ Amy Collins Cosigner Signature (if applicable): Date CC: ~ Signed [facility] Work Phone: Evaluation + Plan note Future Appointments Appointment Date:11/04/2021 09:00:00 AM Scheduled Provider:ISIAH LOBO DO Location:[facility] Appointment Type: OV Follow Up Future Scheduled Tests Radiology* XR Chest 2 Views (PA & Lateral) 01/20/21 * XR Chest 2 Views (PA & Lateral) 06/04/21 [facility] Evaluation + Plan note Future Appointments Appointment Date:11/13/2022 04:00:00 PM Scheduled Provider:ISIAH LOBO DO Location:[facility] Appointment Type:[facility] Evaluation + Plan note Future Appointments Appointment Date:02/10/2023 10:00:00 AM Scheduled Provider:ISIAH LOBO DO Location:[facility] Appointment Type:[facility] Evaluation + Plan note Future Appointments Appointment Date:08/15/2025 01:30:00 PM Scheduled Provider: Location:[facility] Appointment Type:PT [facility] Appointment Date:08/17/2025 01:00:00 PM Scheduled Provider: Location:[facility] Appointment Type:PT [facility] Appointment Date:08/20/2025 01:00:00 PM Scheduled Provider: Location:[facility] Appointment Type:PT [facility] Appointment Date:08/22/2025 01:30:00 PM Scheduled Provider: Location:[facility] Appointment Type:PT [facility] Appointment Date:08/24/2025 01:00:00 PM Scheduled Provider: Location:[facility] Appointment Type:PT [facility] Appointment Date:08/28/2025 01:00:00 PM Scheduled Provider: Location:[facility] Appointment Type:PT [facility] Appointment Date:08/31/2025 01:00:00 PM Scheduled Provider:Harshad Guerrero PT Location:[facility] Appointment Type:PT [facility] Appointment Date:09/04/2025 01:00:00 PM Scheduled Provider: Location:[facility] Appointment Type:PT [facility] Appointment Date:09/07/2025 01:00:00 PM Scheduled Provider: Location:[facility] Appointment Type:PT [facility] evaluation noteNo assessment information available [facility] Work Phone: Evwprywfkf note* Diagnosis Acute bilateral low back pain without sciatica- Primary Glucose found in urine on examination Glycosuria [facility]* Diagnosis Bronchitis- Primary Bronchitis, not specified as acute or chronic Acute upper respiratory infection, unspecified [facility]* Diagnosis Dyspnea, unspecified type- Primary Dyspnea, unspecified type [facility] Dyspnea, unspecified type [facility]* Diagnosis Burning with urination- Primary Dysuria [facility] Diagnosis Bronchitis Bronchitis, not specified as acute or chronic [facility]* Diagnosis Viral URI- Primary Acute upper respiratory infections of unspecified site Acute cough Chest congestion Other symptoms involving respiratory system and chest Chest tightness Other chest pain Headaches [facility] Narrative No data available for this section [facility] Hospital Discharge instructions No data available for this section [facility] Hospital Discharge instructionsAmbulatory Orders* 12 Lead EKG [[facility]] Location: None Selected Additional Instructions Date [facility]: [facility] Work Phone: Hospital Discharge instructionsAdditional Instructions Please continue all of your other medication as directed by your doctor. However as you cannot take the oxycodone secondary to adverse reaction begin taking the Ultram/tramadol 4 times a day on top of your oral morphine for improved pain control from your recent knee replacement. Continue to ice and stretch the knee and take Tylenol as well as use topical treatments such as lidocaine patches or topical Voltaren. Follow-up with your pain management doctor and orthopedic surgeon for repeat evaluation and return to the ER should you have any further [facility] Work Phone: Note* DANNY BUSCH MD: SIGN, VERIFY Event Display: VL Aorta For Medicare Screen (Outpt) [facility] Progress note No data available for this section [facility] Reason for referral (narrative)No reason for referral information availableWOhio[facility] Work Phone: Chief Complaint and Reason for [...] 2025 1:18pm PROLONGED FULLNESS, DYSPHAGIA, REFLUX [facility] 2024 9:56am Chief Complaint Admit Date RT FOOT DROP ACUTE September 26, 2024 7 :00am Dysphagia December 18, 2024 10:33am LUMBAR SPINE December 25, 2024 12:3 2pm Rm 4 December 25, 2024 1:13 pm Dorsalgia, unspecified January 02, 2025 1:18pm PROLONGED FULLNESS, DYSPHAGIA, REFLUX [facility] 2024 9:56am DIFFICULTY SWALLOWING, FREQUENT COUGH [facility] 2024 12:20pm Chief Complaint Admit Date Dysphagia December 18, 2024 10:33am LUMBAR SPINE December 25, 2024 12:3 2pm Rm December 25, 2024 1:13 pm Dorsalgia, unspecified January 02, 2025 1:18pm PROLONGED FULLNESS, DYSPHAGIA, REFLUX [facility] 2024 9:56am DIFFICULTY SWALLOWING, FREQUENT COUGH [facility] 2024 12:20pm PREOP February 06, 2025 11: 56am Chief Complaint Admit Date Dysphagia December 18, 2024 10:33am LUMBAR SPINE December 25, 2024 12:3 2pm Rm 4 December 25, 2024 1:13 pm Dorsalgia, unspecified January 02, 2025 1:18pm PROLONGED FULLNESS, DYSPHAGIA, REFLUX [facility] 2024 9:56am DIFFICULTY SWALLOWING, FREQUENT COUGH [facility] 2024 12:20pm PREOP February 06, 2025 11: [...] Reflux esophagitis February 19, 2025 5:1 5am Chief Complaint Admit Date PREOP July 19, 2025 9:27am Total Knee Replacement Robotic Arm Radha August 09, 2025 12:04pm Total Knee Replacement Robotic Arm Radha August 09, 2025 2:41pm BACK PAIN August 14, 2025 8 :04pm Reason for Visit Admit Date Status post left knee replacement Octobe r 2024 12:04pm Family History Relationship Condition Age at Onset Recorded Date/T yuniel Unknown Family History?- Unknown September 042019 3:54pm Family History?Dementia, - Unknown N ovember 2019 3:54pm Relationship Condition Age at Onset Recorded Date/T yuniel Unknown Family History?- Unknown September 042019 2:54pm Family History?Dementia, - Unknown N ovember 2019 2:54pm Advance Directives Advance Directive Response Recorded Date/ Time Living Will No September 04, 2 020 12:53pm Power of Shirt Line Operator No September 04, 2020 12:53pm Advance Directive Response Recorded Date/ Time Living Will No September 15, 2 022 8:51pm Power of Shirt Line Operator No September 15, 2022 8:51pm Advance Directive Response Recorded Date/ Time Living Will No December 20, 2 023 11:00am Power of Shirt Line Operator No December 20, 2022 11:00am Advance Directive Response Recorded Date/ Time Do you have a Healthcare Power of Shirt Line Operator? Yes February 14, 2025 2:42pm Advance Directive Response Recorded Date/ Time Do you have a Healthcare Power of Shirt Line Operator? Yes August 14, 2025 9:39pm Do you have a Healthcare Power of Shirt Line Operator? Yes August 09, 2025 2:10pm Advance Directive Response Recorded Date/ Time Do you have a Healthcare Power of Shirt Line Operator? Yes August 14, 2025 8:39pm Do you have a Healthcare Power of Shirt Line Operator? Yes August 09, 2025 1:10pm Health Concerns Infection Onset Date Last Indicated Resolved Time COVID-19 Rule-Out 12/16/2022 12/16/2022 Summary Purpose Reason for Referral Specialty Diagnoses / Procedures Referred By Contac t Referred To Contact Radiology Diagnoses Dyspnea, unspecified type Procedures XR CHEST 2 VIEWS Ramu Gay, HAIRSPRING II INSPECTOR-GERIATRIC NURSE ASSISTANT [address] [place] [address] [facility] DIAGNOSTIC RADIOLOGY [address] [facility] [place] [address] Referral ID Status Reason Start Date Expiration Date Visits Re quested Visits Authorized [id number] Closed 06/15/2023 06/14/2024 1 1 Additional Source Comments Care Team (unrecognized sect ion and content) Care Team Personnel Name: ISIAH LOBO DO Position: P4 Physician - Primary Care Med Service: Active Provider Member Role: Primary Care Physician Address: Address: [address] [place] [address]- Name: REY WALLACE MD Position: P3 Physician - Urologist Med Service: Admitting Member Role: Urologist Address: Address: [address] [place] [address] [address] [place] [address]- Name: DOMENIC KHAN APRN-DRIVING SCHOOL INSTRUCTOR Member Role: Audio Production Engineer Address: Address: [address] [place] [address]- Name: MD JESSEE BRO Member Role: Pain Management Address: Address: [facility] [address] [place] [address] [address] [place] [address]- Care Team Related Persons Name: ROBYN MESSER Address: Home [address] [place], [place] [id number] [place] Name: ESTHER MESSER Care Team Personnel Name: YANI DOUGHERTY MD Position: Physician Member Role: Configuration Manager Address: Address: [address] [facility] [address] [place] [address]- [place] Name: ISIAH LOBO DO Position: P4 Physician - Primary Care Member Role: Primary Care Physician Address: Address: [address] [place] [address]- Name: REY WALLACE MD Position: P3 Physician - Urologist Member Role: Urologist Address: Address: [address] [facility] [address] [place] [address]- [place] Name: DOMENIC KHAN APRN-DRIVING SCHOOL INSTRUCTOR Member Role: Audio Production Engineer Address: Address: [address] [place] [address]- Name: MD JESSEE BRO Member Role: Pain Management Address: Address: [facility] [address] [facility] [address] [place] [address]- [place] Care Team Related Persons Name: ROBYN MESSER Address: Home [address] [place], [place] [phone] [place] Name: ESTHER MESSER Care Team Personnel Name: YANI DOUGHERTY MD Position: Physician Member Role: Configuration Manager Address: Address: [address] [facility] [address] [place] [address]- [place] Name: ISIAH LOBO DO Position: P4 Physician - Primary Care Member Role: Primary Care Physician Address: Address: [address] [place] [address]- [place] Name: REY WALLACE MD Position: P3 Physician - Urologist Member Role: Urologist Address: Address: [address] [place] [address] [address] [place] [address]- Name: DOMENIC KHAN APRN-DRIVING SCHOOL INSTRUCTOR Member Role: Audio Production Engineer Address: Address: [address] [place] [address]- Name: MD JESSEE BRO Member Role: Pain Management Address: Address: [facility] [address] [facility] [address] [place] [address]- [place] Care Team Related Persons Name: TRUPTIROBYN Address: Home [address] [place], [place] [phone] [place] Name: ESTHER MESSER Care Team Personnel Name: YANI DOUGHERTY MD Position: Physician Member Role: Configuration Manager Address: Address: [address] [facility] [address] [place] [address]- [place] Name: ISIAH LOBO DO Position: P4 Physician - Primary Care Member Role: Primary Care Physician Address: Address: [address] [place] [address]- [place] Name: REY WALLACE MD Position: P3 Physician - Urologist Member Role: Urologist Address: Address: [address] [facility] [address] [place] [address]- [place] Name: DOMENIC KHAN APRN-DRIVING SCHOOL INSTRUCTOR Member Role: Audio Production Engineer Address: Address: [address] [place] [address]- Name: MD JESSEE BRO Member Role: Pain Management Address: Address: [address] [place] [address]- Care Team Related Persons Name: ROBYN MESSER Address: Home [address] [place], [place] [phone] Name: ESTHER MESSER Care Team Personnel Name: YANI DOUGHERTY MD Position: AH Physician Member Role: Configuration Manager Address: Address: [address] [facility] [address] [place] [id number]- Name: ISIAH LOBO DO Position: P4 Physician - Primary Care Member Role: Primary Care Physician Address: Address: [address] [place] [address]- Name: REY WALLACE MD Position: P3 Physician - Urologist Member Role: Urologist Address: Address: [address] [place] [address] [address] [place] [id number] Name: DOMENIC KHAN APRN-DRIVING SCHOOL INSTRUCTOR Member Role: Audio Production Engineer Address: Address: [address] [place] [address]- Name: MD JESSEE BRO Member Role: Pain Management Address: Address: [address] [address]- Care Team Related Persons Name: ROBYN MESSER Address: Home [address] [place] [phone] [place] Name: ESTHER MESSER Goals (unrecognized section and content) Goals may be documented in a n alternate section Source Comments (unrecognize d section and content) In the event this informatio n is protected by the Federal Confidentiality of Alcohol and Drug Abuse Patient Records regulations: The Federal rules restrict any use of the information to criminally investigate or prosecute any alcohol or drug abuse patient.[facility] the event this information is protected by the Federal Confidentiality of Alcohol and Drug Abuse Patient Records regulations: The Federal rules restrict any use of the information to criminally investigate or prosecute any alcohol or drug abuse patient.[facility] Hospital[facility] the event this information is protected by the Federal Confidentiality of Alcohol and Drug Abuse Patient Records regulations: The Federal rules restrict any use of the information to criminally investigate or prosecute any alcohol or drug abuse patient.[facility] the event this information is protected by the Federal Confidentiality of Alcohol and Drug Abuse Patient Records regulations: The Federal rules restrict any use of the information to criminally investigate or prosecute any alcohol or drug abuse patient.[facility] Hospital[facility] the event this information is protected by the Federal Confidentiality of Alcohol and Drug Abuse Patient Records regulations: The Federal rules restrict any use of the information to criminally investigate or prosecute any alcohol or drug abuse patient.[facility] Hospital[facility] the event this information is protected by the Federal Confidentiality of Alcohol and Drug Abuse Patient Records regulations: The Federal rules restrict any use of the information to criminally investigate or prosecute any alcohol or drug abuse patient.[facility] Hospital[facility] the event this information is protected by the Federal Confidentiality of Alcohol and Drug Abuse Patient Records regulations: The Federal rules restrict any use of the information to criminally investigate or prosecute any alcohol or drug abuse patient.[facility] Reason for Visit (unrecogniz ed section and content) Reason Comments UTI Low back pain, chill s, nausea x3 days Reason Comments Sinus Problem sinus pressure, drai nage, cough, ear pain and sore throat x 5 days Reason Comments Results Specialty Diagnoses / Procedures Referred By Vaughn valle Referred To Contact Radiology Diagnoses Dyspnea, unspecified type Procedures XR CHEST 2 VIEWS Ramu Gay, HAIRSPRING II INSPECTOR-GERIATRIC NURSE ASSISTANT [address] [place] [address] [facility] DIAGNOSTIC [facility]IOLOGY [address] [place] [address] [place] [address] Referral ID Status Reason Start Date Expiration Date Visits Re quested Visits Authorized [id number] Closed 06/15/2023 06/14/2024 1 1 Reason Comments Urinary Problem Burning with urinati on x 1 week Reason Comments Chest Congestion cough, nasal drainag e x 2 days Care Teams (unrecognized sec tion and content) Conveyor Weigher Operator Relationship Specialty Start Date End Date Isiah Lobo, DO [address] [place] [address] PCP - General Family Medicine 09/18/22 Conveyor Weigher Operator Relationship Specialty Start Date End Date Isiah Lobo, DO [address] [place] [address] PCP - [facility] Medicine 09/18/22 Conveyor Weigher Operator Relationship Specialty Start Date End Date Isiah Lobo, DO [address] [place] [address] PCP - General Family Medicine 09/18/22 Team Status: Active Member Role Status Dates Isiah Hill DO Family Provider Active Dr. Isiah Lobo , Primary Care Provider Active Team Status: Inactive [...] Dr. 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 Larisa Leal Attending Provider Active Star t: September 26, 2024 End: September 26, 2024 NP. Larisa Leal Referring Provider Active Star t: September 26, 2024 End: September 26, 2024 Team Status: Inactive Member Role Status Dates [facility] Primary Care Provider Active Start: December 18, 2024 End: December 18, 2024 [facility] Referring Provider Active Start: Samanta johnston 2024 End: December 18, 2024 MARIZA Martinez Attending Provider Active S tart: December 18, 2024 End: December 18, 2024 Team Status: Inactive Member Role Status Dates [facility] Primary Care Provider Active Start: December 25, 2024 End: December 25, 2024 [facility] Referring Provider Active Start: [facility]2024 End: December 25, 2024 Dr. Marcos Archer MD Attending Provider Active Start: December 25, 2024 End: December 25, 2024 Team Status: Inactive Member Role Status Dates [facility] Primary Care Provider Active Start: December 25, 2024 End: December 25, 2024 Dr. Vickey Espinoza MD Attending Provider Active S tart: December 25, 2024 End: December 25, 2024 Team Status: Active Member Role Status Dates [facility] Primary Care Provider Active Start: January 01, 2025 Shakira [place] Attending Provider Active Start : January 01, 2025 Shakira [place] Referring Provider Active Start : January 01, 2025 Team Status: Inactive Member Role Status Dates [facility] Primary Care Provider Active Start: January 02, 2025 End: January 02, 2025 Dr. Rey Wallace MD Attending Provider Active Start: January 02, 2025 End: January 02, 2025 Dr. Rey Wallace MD Referring Provider Active Start: January 02, 2025 End: January 02, 2025 Team Status: Inactive Member Role Status Dates [facility] Primary Care Provider Active Start: January 01, 2025 End: January 01, 2025 Shakira [place] Attending Provider Active Start : January 01, 2025 End: January 01, 2025 Shakira [place] Referring Provider Active Start : January 01, 2025 End: January 01, 2025 Team Status: Inactive Member Role Status Dates [facility] Primary Care Provider Active Start: January 11, 2025 End: January 11, 2025 MARIZA Martinez Attending Provider Active S tart: January 11, 2025 End: January 11, 2025 MARIZA Martinez Referring Provider Active S tart: January 11, 2025 End: January 11, 2025 Team Status: Inactive Member Role Status Dates [facility] Primary Care Provider Active Start: January 19, 2025 End: January 19, 2025 MARIZA Martinez Attending Provider Active S tart: January 19, 2025 End: January 19, 2025 MARIZA Martinez Referring Provider Active S tart: January 19, 2025 End: January 19, 2025 Team Status: Inactive Member Role Status Dates [facility] Primary Care Provider Active Start: February 06, 2025 End: February 06, 2025 RANDALL Sierra Attending Provider Active Start: February 06, 2025 End: February 06, 2025 RANDALL Lee Referring Provider Active Start : February 06, 2025 End: February 06, 2025 Team Status: Active Member Role Status Dates [facility] Primary Care Provider Active Start: February 06, 2025 End: February 06, 2025 Dr. Raymon Bhakat MD Attending Provider Active Start: February 06, 2025 End: February 06, 2025 Dr. Raymon Bhakta MD Referring Provider Active Start: February 06, 2025 End: February 06, 2025 Team Status: Inactive Member Role Status Dates [facility] Primary Care Provider Active Start: February 19, 2025 End: February 19, 2025 [facility] Referring Provider Active Start: [facility] 2024 End: February 19, 2025 Dr. Tonio Rogers DO Attending Provider Active Start: February 19, 2025 End: February 19, 2025 Team Status: Active Member Role Status Dates [facility] Primary Care Provider Active Start: February 19, 2025 [facility] Referring Provider Active Start: [facility] [address]. Tonio Rogers DO Attending Provider Active Start: February 19, 2025 Dr. Tonio Rogers DO Other Provider Active St art: February 19, 2025 Team Status: Inactive Member Role Status Dates [facility] Primary Care Provider Active Start: March 29, 2025 End: March 29, 2025 Domenic Khan NP, [employer] Attending Provider Active Start: March 29, 2025 End: March 29, 2025 Domenic Khan NP [employer] Referring Provider Active Start: March 29, 2025 End: March 29, 2025 Team Status: Active Member Role Status Dates [facility] Primary Care Provider Active Start: March 29, 2025 Dr. Jaqueline Augustine MD Attending Provider Activ e Start: March 29, 2025 Team Status: Active Member Role/Relationship Status Dates [facility] Primary care physician Active Team Status: Active Member Role/Relationship Status Dates [facility] Primary care physician Active Start : July 19, 2025 Dr. Raymon Bhakta MD Attending physician Active Start: July 19, 2025 Dr. Harshad Lima DO Referring Provider Active Start: July 19, 2025 Team Status: Inactive Member Role/Relationship Status Dates [facility] Primary care physician Active Start : August 09, 2025 End: August 10, 2025 Dr. Harshad Lima DO Admitting physician Active Start: August 09, 2025 End: August 10, 2025 Dr. Harshad Lima DO Referring Provider Active Start: August 09, 2025 End: August 10, 2025 Dr. Harshad Lima DO Nurse Practitioner Active Start: August 09, 2025 End: August 10, 2025 Dr. Richardson Jean Baptiste , Nurse Practitioner Active Start: August 09, 2025 End: August 10, 2025 Dr. Alcides Ch DO Attending physician Active Start: August 09, 2025 End: August 10, 2025 Team Status: Active Member Role/Relationship Status Dates [facility] Primary care physician Active Start : August 09, 2025 Dr. Harshad Lima DO Admitting physician Active Start: August 09, 2025 Dr. Harshad Lima DO Referring Provider Active Start: August 09, 2025 Dr. Harshad Lima DO Nurse Practitioner Active Start: August 09, 2025 Dr. Richardson Jean Baptiste DO Attending physician Activ e Start: August 09, 2025 Dr. Richardson Jean Baptiste , DO Nurse Practitioner Active Start: August 09, 2025 Team Status: Inactive Member Role/Relationship Status Dates [facility] Primary care physician Active Start : August 14, 2025 End: August 14, 2025 Dr. Win Smiley , DO Emergency Department Physician A ctive Start: August 14, 2025 End: August 14, 2025 Team Status: Inactive Member Role/Relationship Status Dates [facility] Primary care physician Active Start : August 14, 2025 End: August 14, 2025 Dr. Win Smiley DO Attending physician Active Start: August 14, 2025 End: August 14, 2025 Dr. Win Smiley , DO Emergency Department Physician A ctive Start: August 14, 2025 End: August 14, 2025 (unrecognized sect ion and content) No Status Records FoundNo Status Records FoundNo Status Records FoundNo Status Records FoundNo Status Records FoundNo Status Records FoundNo Status Records Found INFORMATION SOURCE (unrecogn ized section and content) DATE CREATED AUTHOR 04/19/2023 [facility] DATE CREATED AUTHOR AUTHOR'S ORGANIZ ATION 05/31/2024 [facility] ([place] DATE CREATED AUTHOR AUTHOR'S ORGANIZ ATION 11/16/2024 [facility] DATE CREATED AUTHOR AUTHOR'S ORGANIZ ATION 12/25/2024 [facility] DATE CREATED AUTHOR AUTHOR'S ORGANIZ ATION 08/17/2025 [facility] DATE CREATED AUTHOR AUTHOR'S ORGANIZ ATION 08/24/2025 [facility] DATE CREATED AUTHOR AUTHOR'S ORGANIZ ATION 08/26/2025 [facility] FOR RECORDS PERTAINING TO PATIENTS WHO ARE [...] BE BASED ON THE PRIMARY CLINICAL RECORDS. [employer] [facility]. provides no warranty or guarantee of the accuracy or completeness of information in this document.
[2025-10-13 16:39] VITALS: BP 142/102; PULSE 126; RESP 18; TEMP 36.4; O2SAT 97
== END 2025-10-13 16:39 | disposition home or self-care (01) ==
PROVIDERS: Emergency Provider Emergency Medicine; Visit Provider Emergency Medicine
DX: G89.4 Chronic pain syndrome (principal); E11.9 Type 2 diabetes mellitus without complications; K21.9 Gastro-esophageal reflux disease without esophagitis; F17.210 Nicotine dependence, cigarettes, uncomplicated; M54.9 Dorsalgia, unspecified
CPT/HCPCS: 99282